=== PATIENT | female | born 1945 | race Caucasian/White ===

== ENCOUNTER → 2017-05-22 11:31 | Outpatient (CLI) | payer MEDICARE, OTHER, SELFPAY ==
[2017-05-22 13:12] LABS: Albumin, Serum 3.7 g/dL (3.2-5.0); BUN 23 mg/dL (7-18); BUN/Creat Ratio 24.5 RATIO (10-20); Calcium,Total 9.4 mg/dL (8.5-10.1); Chloride 104 mmol/L (98-107); Creatinine, Serum 0.94 mg/dL (0.55-1.02); EST Glomerular Filtration Rate 63 mL/min (>60); Est Glom Filt Rate - Afr Amer 76 mL/min (>60); Glucose 160 mg/dL (74-106); Phosphorus 2.8 mg/dL (2.5-4.9); Potassium 4.2 mmol/L (3.5-5.1); Sodium Level 136 mmol/L (136-145)
[2017-05-22 14:08] LABS: Microalbumin:Creatinine Ratio 1190.7 mg/g CRE (<30 mg/g CRE)
[2017-05-22 15:36] LABS: Hemoglobin A1c 6.9 % (4.2-6.3)
[2017-05-23 08:49] LABS: Vitamin D,25 Hydroxy 25.4 ng/mL (19.95-100.01)
== END ==
PROVIDERS: Family Provider Family Medicine; PCP Family Medicine; Visit Provider Internal Medicine Nephrology
DX: E11.21 Type 2 diabetes mellitus with diabetic nephropathy (principal); E11.37X1 Type 2 diabetes mellitus with diabetic macular edema, resolved following treatment, right eye; E55.9 Vitamin D deficiency, unspecified
CPT/HCPCS: 36415; 80069; 82043; 82306; 82570; 83036

== ENCOUNTER → 2017-05-28 13:47 | Outpatient (CLI) | payer MEDICARE, OTHER, SELFPAY ==
--- NOTE | 2017-05-28 13:48 | US_ITS ---
STUDY: RENAL ULTRASOUND - COMPLETE REASON FOR EXAM: Female, 71 years old. Acute renal failure. TECHNIQUE: Ultrasound evaluation of the kidneys was performed with real-time and static josé-scale imaging. COMPARISON: Comparison is made with prior examination dated September 04, 2016. FINDINGS: RIGHT KIDNEY: Normal location of the right kidney, which is normal in size. The right kidney measures 10.4 cm x 5.0 cm x 4.5 cm. There is a normal cortex of the right kidney. The renal cortex measures 1.4 cm. There is a 1 cm x 0.8 cm x 0.7 cm cyst. Questionable 8 mm angiomyolipoma in the upper pole of the right kidney. There are no right renal calculi. There is no right hydronephrosis. DISTAL RIGHT URETER: There is non-visualization of the distal right ureter. There is no demonstrated right ureterovesical junction calculus. There is a visualized right ureteral jet. LEFT KIDNEY: Normal location of the left kidney, which is normal in size. The left kidney measures 9.9 cm x 4.0 cm x 4.8 cm. There is a normal cortex of the left kidney. The renal cortex measures 1.5 cm. There is a 1 cm x 1.1 cm x 1 cm cyst. There are no left renal calculi. There is no left hydronephrosis. DISTAL LEFT URETER: There is non-visualization of the distal left ureter. There is no demonstrated left ureterovesical junction calculus. There is a visualized left ureteral jet. I.V.C.: The IVC is patent. BLADDER: The distended urinary bladder has a volume of 101.6 ml. There is a normal wall thickness of the distended urinary bladder. There is no demonstrated mass within the urinary bladder. There are no demonstrated bladder calculi. US/Kidney and Bladder IMPRESSION: Small bilateral renal cysts. Electronically Signed: Julian Ahuja MD at 9:46 EST Tel [phone], Service support ,
== END ==
PROVIDERS: Family Provider Family Medicine; PCP Family Medicine; Visit Provider Internal Medicine Nephrology
DX: N17.9 Acute kidney failure, unspecified (principal)
CPT/HCPCS: 76770

== ENCOUNTER → 2017-08-01 11:29 | Outpatient (CLI) | payer MEDICARE, OTHER, SELFPAY ==
[2017-08-01 14:20] LABS: AST(SGOT) 22 U/L (15-37); Alanine Aminotransfer ALT/SGPT 25 U/L (13-56); Cholesterol 177 mg/dL (200); High Density Lipoprotein 43 mg/dL; Triglycerides 205 mg/dL; Very Low Density Lipoprotein 41 mg/dL (5-40)
[2017-08-01 14:23] LABS: Vitamin D,25 Hydroxy 27.8 ng/mL (29.95-100.01)
== END ==
PROVIDERS: Family Provider Family Medicine; PCP Family Medicine; Visit Provider Family Medicine
DX: I25.10 Atherosclerotic heart disease of native coronary artery without angina pectoris (principal)
CPT/HCPCS: 36415; 80061; 82306; 84450; 84460

== ENCOUNTER → 2017-11-12 13:39 | Outpatient (CLI) | payer MEDICARE, OTHER, SELFPAY ==
[2017-11-12 16:12] LABS: Albumin, Serum 3.8 g/dL (3.2-5.0); BUN 29 mg/dL (7-18); BUN/Creat Ratio 29.4 RATIO (10-20); Calcium,Total 10.3 mg/dL (8.5-10.1); Chloride 105 mmol/L (98-107); Creatinine, Serum 0.99 mg/dL (0.55-1.02); EST Glomerular Filtration Rate 59 mL/min (>60); Est Glom Filt Rate - Afr Amer 71 mL/min (>60); Glucose 135 mg/dL (74-106); Potassium 4.8 mmol/L (3.5-5.1); Sodium Level 138 mmol/L (136-145)
[2017-11-12 16:22] LABS: Hemoglobin A1c 6.6 % (4.2-6.3); Protein:Creat Ratio 1214 mg/g CRE (0-200); Vitamin D,25 Hydroxy 27.8 ng/mL (29.95-100.01)
== END ==
PROVIDERS: Family Provider Family Medicine; PCP Family Medicine; Visit Provider Internal Medicine Nephrology
DX: E11.21 Type 2 diabetes mellitus with diabetic nephropathy (principal); E11.37X1 Type 2 diabetes mellitus with diabetic macular edema, resolved following treatment, right eye; E55.9 Vitamin D deficiency, unspecified; N17.9 Acute kidney failure, unspecified
CPT/HCPCS: 36415; 80069; 82306; 82570; 83036; 84156

== ENCOUNTER → 2017-12-18 10:21 | Outpatient (CLI) | payer MEDICARE, OTHER, SELFPAY ==
[2017-12-18 12:48] LABS: Albumin, Serum 3.8 g/dL (3.2-5.0); BUN 33 mg/dL (7-18); BUN/Creat Ratio 32.7 RATIO (10-20); Calcium,Total 9.4 mg/dL (8.5-10.1); Chloride 103 mmol/L (98-107); Creatinine, Serum 1.01 mg/dL (0.55-1.02); EST Glomerular Filtration Rate 57 mL/min (>60); Est Glom Filt Rate - Afr Amer 69 mL/min (>60); Glucose 122 mg/dL (74-106); Phosphorus 3.2 mg/dL (2.5-4.9); Potassium 4.3 mmol/L (3.5-5.1); Sodium Level 136 mmol/L (136-145)
[2017-12-18 12:54] LABS: Protein, Urine (Random) 51.7 mg/dL (<11.9); Protein:Creat Ratio 730 mg/g CRE (0-200)
[2017-12-19 08:46] LABS: Vitamin D,25 Hydroxy 41.9 ng/mL (29.95-100.01)
== END ==
PROVIDERS: Family Provider Family Medicine; PCP Family Medicine; Visit Provider Internal Medicine Nephrology
DX: E11.21 Type 2 diabetes mellitus with diabetic nephropathy (principal); E55.9 Vitamin D deficiency, unspecified; E11.37X1 Type 2 diabetes mellitus with diabetic macular edema, resolved following treatment, right eye
CPT/HCPCS: 36415; 80069; 82306; 82570; 83036; 84156

== ENCOUNTER 2018-01-06 15:41 | Emergency (ER) | payer MEDICARE, OTHER, SELFPAY ==
[2018-01-06 15:42] VITALS: BP 173/81; PULSE 74; RESP 18; TEMP 36.7; O2SAT 99; BMI 26.5
--- NOTE | 2018-01-06 16:19 | ED.DCSUM_ITS ---
- ER Visit Summary Date of Service: 01/06/18 Chief Complaint: Abscess History of Present Illness: The patient is a 72 F presenting with abscess to right posterior thigh. This has been ongoing for approximately 2 weeks. She states prior to that she chronically has a lump in that area. Redness began 2 weeks ago. Over the past week it has progressively worsened. She has been on Keflex since Sunday. She was unable to get into her primary care physician on Sunday but has an appointment tomorrow. She denies fever or other complaints. Physical Examination: Vitals are stable. Patient is afebrile. Alert no acute distress. HEENT exam is unremarkable. Neck is supple. Lungs are clear and equal bilaterally. Heart is regular rate and rhythm. Abdomen is soft nontender nondistended. Extremities right posterior thigh 4 cm abscess with fluctuance, mild surrounding erythema Skin is warm and dry. No focal neurologic deficit. Remainder of exam is unremarkable. Emergency Department Course and Treatment: Patient was given Christine ?1. I&D was performed. Incised with 11 blade, probed to break up loculations, moderate pus drained, irrigated with saline. Patient tolerated this well. She was given clindamycin. She has an appointment with her primary care physician tomorrow for wound recheck. Advised return to ED if worsening complaints. Disposition: Discharge home Impression: Right thigh abscess, I&D This note was generated with Stitch.es dictation software. It may contain incorrect words, spelling, and punctuation that were not noted in review of the chart prior to signing ED Disposition - Plan for ED Patient: Chief Complaint: Abscess Instructions: ED Abscess IandD Prescriptions: Clindamycin [Cleocin] 300 mg PO 4X/DAY #80 capsule Referrals: Katt Ramsay MD [Primary Care Provider] -
[2018-01-06 16:24] VITALS: BP 165/80; PULSE 80; RESP 14; O2SAT 98
[2018-01-06] MEDS: HYDROcodone Bitartrate/Apap 5/325 Tablet PO (17:07)
--- NOTE | 2018-01-06 17:47 | ED.DEP ---
ED Disposition - Plan for ED Patient: Chief Complaint: Abscess Instructions: ED Abscess IandD Prescriptions: Clindamycin [Cleocin] 300 mg PO 4X/DAY #80 capsule Referrals: Katt Ramsay MD [Primary Care Provider] -
[2018-01-06 17:52] VITALS: BP 160/80; PULSE 95; RESP 15; O2SAT 98
[2018-01-06] MEDS: Clindamycin HCl 150 MG Capsule 300 MG PO (17:55)
[2018-01-06 17:57] VITALS: BP 154/58; PULSE 60; RESP 17; O2SAT 98
== END 2018-01-06 20:38 | disposition home or self-care (01) ==
PROVIDERS: Emergency Provider Emergency Medicine; Family Provider Family Medicine; PCP Family Medicine
DX: L02.415 Cutaneous abscess of right lower limb (principal); B96.89 Other specified bacterial agents as the cause of diseases classified elsewhere; I25.10 Atherosclerotic heart disease of native coronary artery without angina pectoris; I10 Essential (primary) hypertension; E11.9 Type 2 diabetes mellitus without complications; Z79.84 Long term (current) use of oral hypoglycemic drugs; Z79.82 Long term (current) use of aspirin; Z79.899 Other long term (current) drug therapy; Z87.891 Personal history of nicotine dependence
CPT/HCPCS: 10060; 99283; A4216

== ENCOUNTER → 2018-06-25 13:20 | Outpatient (CLI) | payer MEDICARE, OTHER, SELFPAY ==
--- NOTE | 2018-06-25 13:22 | BI_ITS ---
MAMMOGRAPHY - BILATERAL SCREENING REASON FOR EXAM: Female, 72 years old. Routine annual screening examination. PERTINENT HISTORY: Non-contributory. TECHNIQUE: Digital bilateral breast gertrudis (3D mammographic acquisition) in the CC and MLO projections. 2-D mediolateral oblique (MLO) and craniocaudad (CC) views of both breasts were obtained. CAD: Full Field Digital Mammography with Computer Added Detection was performed. COMPARISON: Comparison is made with prior study dated August 14, 2016 FINDINGS: Breast Composition: There are scattered areas of fibroglandular density. There are no dominant masses or suspicious calcifications. Stable appearance of the bilateral secretory calcifications. No other significant abnormalities are identified. There has been no significant change since the prior study. BI/SCREENING MAMM (CAD), BILAT IMPRESSION: Stable bilateral screening mammogram. Yearly follow-up mammogram recommended. (A) ASSESSMENT CATEGORY: BIRADS Category 2: Benign. A letter regarding these results will be sent to the patient by the facility within 30 days. Approximately 10% of breast cancers are not detected by mammography. A normal mammogram should not delay biopsy of a clinically suspicious abnormality. [id number] Electronically Signed: Julian Ahuja, at 14:53 EDT , Service support ,
== END ==
PROVIDERS: Family Provider Family Medicine; PCP Family Medicine; Referring Provider Family Medicine; Visit Provider Family Medicine
DX: Z12.31 Encounter for screening mammogram for malignant neoplasm of breast (principal)
CPT/HCPCS: 77063; 77067

== ENCOUNTER 2018-07-10 15:48 | Emergency (ER) | payer MEDICARE, OTHER, SELFPAY ==
[2018-07-10 16:02] VITALS: BP 115/56; PULSE 83; RESP 18; TEMP 36.6; O2SAT 98; BMI 28.8
--- NOTE | 2018-07-10 16:16 | CT_ITS ---
STUDY: CT BRAIN WITHOUT CONTRAST REASON FOR EXAM: Female, 72 years old. Syncope RADIATION DOSAGE (If Supplied By Facility): CTDIvol = ( 44.99 ) mGy, DLP = ( 745.49 ) mGycm TECHNIQUE: Transaxial CT imaging of the brain was performed without administration of intravenous contrast material. Individualized dose optimization techniques were used for this CT. COMPARISON: February 01, 2014 FINDINGS: Subcutaneous hematoma left occiput. Normal calvarium. Normal size ventricles and extra-axial spaces for the patient's age. Normal white matter tracts of the cerebral hemispheres. Normal basal ganglia and thalami. Normal brainstem. Normal cerebellum. There is no intracranial hemorrhage. There are no findings of an acute ischemic infarction. Normal visualized paranasal sinuses. CT/Brain/Head without Contrast IMPRESSION: Normal unenhanced CT scan of the brain. Electronically Signed: Jose Juan Funez MD at 18:54 EDT , Service support ,
--- NOTE | 2018-07-10 16:16 | ED.VISSUMM ---
- ER Visit Summary Date of Service: 07/10/18 Chief Complaint: Syncope History of Present Illness: The patient is a 72 F who presents with syncopal episode that occurred today. Patient was at [facility] when she passed out. Patient states she fell backwards and hit her head. Patient states she was standing in line for a long time prior to passing out. Patient denies any chest pain or palpitations. Patient denies any shortness of breath. Patient states she just feels a little lightheaded. Patient was recently started on Augmentin for possible pneumonia. She was also started on albuterol, Mucinex, Tessalon. Patient was at the pharmacy picking up these prescriptions when she passed out. Physical Examination: Vital signs are stable. Patient is afebrile. Patient is in no acute distress. There is tenderness and mild edema over the occipital scalp. There is no bony crepitance or step-off. Pupils are equal, round, and reactive to light. Extraocular muscles are intact. Oral mucosa is pink and moist. Neck is supple. Trachea is midline. There is no JVD noted. Heart was regular rate and rhythm. Lungs are clear and equal bilateral. Abdomen is soft. Bowel sounds are normal. There is no tenderness. There is no guarding noted. Skin is warm dry. Cranial nerves II through XII are intact. There are no focal motor or sensory deficits noted. The remaining physical exam is within normal limits. Test Results: CBC was normal. Basic metabolic profile shows slightly elevated BUN and creatinine of 26 and 1.36. Urinalysis showed leukocyte esterase of 100 with positive nitrites. There is 0-5 white blood cells and 0-5 epithelial cells. Troponin was normal. EKG showed normal sinus rhythm with a rate of 83. There are no acute ST or T wave changes. CT scan of the brain was obtained and was normal. PA and lateral chest x-ray was obtained and does not show any acute cardiopulmonary process. There are chronic changes noted. Emergency Department Course and Treatment: Orthostatic vital signs were obtained and were positive. Patient was given IV fluids here. Patient was instructed to drink plenty of fluids. Patient was instructed to continue her antibiotics as prescribed. Patient was instructed to follow-up with her primary care physician in 5-7 days. Patient understood and was agreeable with the plan. All questions were answered. Disposition: Discharge home Impression: Syncope Dehydration This note was generated with Theoremation software. It may contain incorrect words, spelling, and punctuation that were not noted in review of the chart prior to signing ED Disposition - Plan for ED Patient: Disposition: Home or Assisted Living Diagnosis: Syncope, Dehydration Instructions: ED Dehydration, ED Hypotension Orthostatic Referrals: Katt Ramsay MD [Primary Care Provider] - 5-7 Days
--- NOTE | 2018-07-10 16:17 | EKG12_ITS ---
Test Reason : SYNCOPE Blood Pressure : / mmHG Vent. Rate : 083 BPM Atrial Rate : 083 BPM P-R Int : 134 ms QRS Dur : 070 ms QT Int : 370 ms P-R-T Axes : 050 036 027 degrees QTc Int : 434 ms Normal sinus rhythm Normal ECG Confirmed by ENOC NICOLE, KOKO ([id number]), editor greeting card FELICIA YIN ([id number]) on 07/11/2018 1:13:21 PM Referred By: JOHN Confirmed By:KOKO STUBBS MD
[2018-07-10 16:51] LABS: Absolute Lymphocyte Count 0.42 X10^3/ul (0.83-4.51); Absolute Neutrophil Count 6.5 X10^3/uL (2.0-7.7); Basophil# 0.07 X10^3/uL; Basophil% 0.9 % (0-1); Differential Indicated SCAN CRITERIA MET; Eosinophil# 0.01 X10^3/uL; Eosinophils% 0.1 % (0-5); Hematocrit 36.5 % (37-47); Hemoglobin 12.2 g/dl (12.0-15.0); Lymphocyte # 0.42 X10^3/ul (4.0); Lymphocyte % 5.3 % (19-41); Mean Corp Hgb Conc 33.4 g/gl (32-36); Mean Corpuscular Hgb 30.7 pg (27.0-32.0); Mean Corpuscular Volume 91.7 fL (81-99); Mean Platelet Vol. 11.9 fl (6.2-12.0); Monocyte# 0.86 X10^3/uL; Monocyte% 10.9 % (0-10); Neutrophil # 6.49 X10^3/uL (2.7-7.7); Neutrophil % 82.3 % (47-70); POSITIVE COUNT NO; POSITIVE DIFFERENTIAL YES; POSITIVE MORPHOLOGY NO; Platelet Count 186 K/mm3 (150-450); RBC Distribution Width CV 12.3 % (11.6-14.6); RBC Distribution Width SD 40.7 fl (35.1-43.9); Red Blood Count 3.98 M/mm3 (4.2-5.4); White Blood Count 7.9 K/mm3 (4.4-11.0)
[2018-07-10 16:53] VITALS: BP 111/54; BP 128/53; BP 155/87; PULSE 86; PULSE 87; PULSE 88
--- NOTE | 2018-07-10 17:02 | RAD_ITS ---
STUDY: X-RAY CHEST REASON FOR EXAM: Female, 72 years old. Syncope TECHNIQUE: PA and lateral views of the chest. 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 There is minimal linear fibrosis of the left lingula. There is no demonstrated pleural abnormality. Normal size heart. Normal mediastinum and demetra. Normal visualized pulmonary arteries. Normal visualized aortic arch and descending thoracic aorta. Normal visualized thoracic spine. Normal visualized ribs, clavicles, and shoulders. There is no demonstrated abnormality of the visualized soft tissue structures of the upper abdomen. RAD/Chest PA and Lateral IMPRESSION: Left lingular fibrosis, stable in the interval. No acute cardiopulmonary disease process is seen. Electronically Signed: Damian Vines MD at 18:03 EDT , Service support ,
[2018-07-10 17:12] LABS: Anion Gap 10 (5-15); BUN 26 mg/dL (7-18); BUN/Creat Ratio 19.1 RATIO (10-20); Calcium,Total 9.1 mg/dL (8.5-10.1); Chloride 101 mmol/L (98-107); Creatinine, Serum 1.36 mg/dL (0.55-1.02); EST Glomerular Filtration Rate 41 mL/min (>60); Est Glom Filt Rate - Afr Amer 49 mL/min (>60); Estimated Creatinine Clearance 36.13 ml/min; Glucose 155 mg/dL (74-106); Potassium 4.2 mmol/L (3.5-5.1); Sodium Level 134 mmol/L (136-145)
[2018-07-10 17:15] LABS: Differential Comment SCANNED
--- NOTE | 2018-07-10 17:29 | ED.RN ---
unable to urinate for sample at this time.
[2018-07-10 18:10] VITALS: BP 107/86; PULSE 82; RESP 18; O2SAT 95
[2018-07-10 18:14] LABS: Mucous, Urine 0 SEEN /hpf (<or=2+); Red Blood Cells-Urine 0 SEEN /hpf (0-5)
[2018-07-10 18:16] LABS: Color, Urine Yellow (Yellow); Glucose, Dipstick Normal (Normal); Ketone-Dipstick 5 mg/dl (Negative); Leukocyte Esterase-Dipstick 100 /ul (Negative); Nitrite-Dipstick Positive (Negative); Occult Blood-Urine 25 /ul (Negative); Protein-Dipstick 500 mg/dl (Negative); Urine Bilirubin Dipstick Negative (Negative); Urine Clarity Sl. Cloudy (Clear); Urine Urobilinogen Normal (Normal)
[2018-07-10 18:28] LABS: Bacteria 3+ /hpf (None Seen); Squamous Epithelial Cells - UA 0-5 SEEN /hpf (5-10); Transitional Epithelial - Ur 0-5 SEEN /hpf (0-5); White Blood Cells 0-5 SEEN /hpf (0-5)
[2018-07-10 19:09] VITALS: PULSE 97; RESP 18; O2SAT 16
[2018-07-10] MEDS: 0.9% Normal Saline 1,000 ML 1000 ML IV (19:09)
[2018-07-10 20:37] VITALS: BP 139/69; PULSE 77; RESP 16; O2SAT 98
== END 2018-07-10 20:38 | disposition home or self-care (01) ==
PROVIDERS: Emergency Provider Emergency Medicine; Family Provider Family Medicine; PCP Family Medicine
DX: R55 Syncope and collapse (principal); E86.0 Dehydration; I25.10 Atherosclerotic heart disease of native coronary artery without angina pectoris; I11.0 Hypertensive heart disease with heart failure; I50.9 Heart failure, unspecified; J44.9 Chronic obstructive pulmonary disease, unspecified; E11.9 Type 2 diabetes mellitus without complications; N17.9 Acute kidney failure, unspecified; Z98.61 Coronary angioplasty status; Z79.82 Long term (current) use of aspirin; Z79.84 Long term (current) use of oral hypoglycemic drugs; Z79.899 Other long term (current) drug therapy
CPT/HCPCS: 70450; 71046; 80048; 81001; 84484; 85025; 93005; 96360; 99285; J7030; A4216

== ENCOUNTER 2018-07-12 17:09 | Observation (INO) | payer MEDICARE, OTHER, SELFPAY ==
[2018-07-12 17:11] VITALS: BP 135/67; PULSE 69; RESP 17; TEMP 36.7; O2SAT 98; BMI 24.5
[2018-07-12 18:43] VITALS: BP 168/62; PULSE 69; RESP 13; O2SAT 98
--- NOTE | 2018-07-12 18:49 | RAD_ITS ---
STUDY: X-RAY CHEST REASON FOR EXAM: Female, 72 years old. Syncope. TECHNIQUE: PA and lateral views of the chest. COMPARISON: July 10, 2018 FINDINGS: There is no new focal consolidation. Normal size heart. Normal mediastinum and demetra. Normal visualized pulmonary arteries. Normal visualized aortic arch and descending thoracic aorta. Normal visualized thoracic spine. Normal visualized ribs, clavicles, and shoulders. There is no demonstrated abnormality of the visualized soft tissue structures of the upper abdomen. RAD/Chest PA and Lateral IMPRESSION: No acute cardiopulmonary process. Electronically Signed: Johana Bonilla MD at 21:29 EDT Tel , Service support ,
--- NOTE | 2018-07-12 18:49 | CT_ITS ---
STUDY: CT BRAIN WITHOUT CONTRAST REASON FOR EXAM: Female, 72 years old. Fall today. RADIATION DOSAGE (If Supplied By Facility): CTDIvol = ( 44.99 ) mGy, DLP = ( 779.24 ) mGycm TECHNIQUE: Transaxial CT imaging of the brain was performed without administration of intravenous contrast material. Individualized dose optimization techniques were used for this CT. COMPARISON: July 10, 2018 and January 02, 2014 FINDINGS: Normal soft tissue structures. Stable calvarium. There is mild cerebral atrophy with widening of the extra-axial spaces and ventricular dilatation. Normal white matter tracts of the cerebral hemispheres. Normal basal ganglia and thalami. Normal brainstem. There is mild cerebellar atrophy. There is no intracranial hemorrhage. There are no findings of an acute ischemic infarction. There is mild opacification of the visualized maxillary and ethmoid sinuses. CT/Brain/Head without Contrast IMPRESSION: Chronic involutional changes of the brain. Mild opacification of the visualized maxillary and ethmoid sinuses consistent with a history of sinusitis. Electronically Signed: Johana Bonilla MD at 21:28 EDT Tel , Service support ,
--- NOTE | 2018-07-12 18:49 | EKG12_ITS ---
Test Reason : Blood Pressure : / mmHG Vent. Rate : 064 BPM Atrial Rate : 064 BPM P-R Int : 132 ms QRS Dur : 076 ms QT Int : 414 ms P-R-T Axes : 048 032 049 degrees QTc Int : 427 ms Normal sinus rhythm Low voltage QRS Borderline ECG Confirmed by TERI NICOLE, BRUCE ([id number]), photograph editor FELICIA YIN ([id number]) on 07/15/2018 1:54:52 PM Referred By: Joseph Miller Confirmed By:BRUCE WILLIAMSON MD
[2018-07-12 18:51] VITALS: BP 168/62; PULSE 71; RESP 18; TEMP 36.6; O2SAT 98
--- NOTE | 2018-07-12 18:51 | ED.VISSUMM ---
- ER Visit Summary Date of Service: 07/12/18 Chief Complaint: Syncopal episode History of Present Illness: The patient is a 72 F who presents for evaluation after a syncopal episode today. 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 Patient went to walk out of the store and fell backwards, striking her head on the ground. She was unconscious for approximately 30 seconds. Family states then she was awake and at her baseline. Patient is complaining of head pain and mild nausea. Patient had a similar episode 2 days ago at [facility] and also hit her head. She vomited once at that time. Patient states for the last month she has been having dizzy episodes and now is starting to have the episodes of passing out. She estimates approximately 4 episodes of syncope, with the 2 resulting in transfer to the emergency department. Patient currently denies any fever, vision changes, chest pain, shortness of breath, abdominal pain, nausea or vomiting, numbness or tingling in the arms or legs, or other complaints. Patient is currently on amoxicillin, Mucinex and an inhaler for pneumonia that was diagnosed at an outside facility. Patient also received injections in her eyes yesterday for treatment of diabetes. 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 Physical Examination: Vital signs: afebrile, hemodynamically stable, no hypoxia on room air General: well nourished, well developed, in no distress Skin: warm, dry, no rash, no pallor HEENT: normocephalic and atraumatic; no scalp hematoma, laceration or abrasion appreciated. PERRL, EOMI, bilateral mild subconjunctival hemorrhage, moist mucous membranes Cardiovascular: regular rate and rhythm without murmurs, no peripheral edema, 2+ pulses all distal extremities Respiratory: No increased work of breathing, lungs are diffusely diminished with expiratory wheezing Abdominal: Abdomen is soft, nontender with normoactive bowel sounds, no guarding or rebound, no masses MSK: Moves all extremities, no deformities, normal strength Neuro: Awake and alert, oriented ?4. No facial droop, sensation and motor function intact and symmetric Test Results: Abnormal Lab Results 07/12/18 07/12/18 07/12/18 18:59 19:30 19:30 WBC 5.3 RBC 3.89 L Hgb 11.6 L Hct 34.2 L MCV 87.9 MCH 29.8 MCHC 33.9 RDW 12.5 RDW Differential 39.2 Plt Count 178 MPV 12.1 H Immature Gran % (Auto) 0.400 Neut % (Auto) 73.5 H Lymph % (Auto) 13.5 L [place] % (Auto) 11.4 H Eos % (Auto) 0.2 Baso % (Auto) 1.0 Absolute Neuts (auto) 3.9 Absolute Lymphs (auto) 0.71 L Total Counted Not Reportable Sodium 133 L Potassium 4.4 Chloride 101 Carbon Dioxide 26.0 Anion Gap 6 BUN 30 H Creatinine 1.50 H Estim Creat Clear Calc 24.71 Est GFR (MDRD) Af Amer 44 L Est GFR (MDRD) Non-Af 36 L BUN/Creatinine Ratio 20.0 Glucose 216 H Calcium 8.7 Total Bilirubin 0.30 AST 25 ALT 20 Alkaline Phosphatase 107 Troponin I < 0.015 Total Protein 6.6 Albumin 3.5 Globulin 3.1 Albumin/Globulin Ratio 1.1 Urine Color Urine Clarity Urine pH Ur Specific [place] Urine Protein Urine Glucose (UA) Urine Ketones Urine Occult Blood Urine Nitrite Urine Bilirubin Urine Urobilinogen Ur Leukocyte Esterase Urine RBC Urine WBC Ur Squamous Epith Cells Urine Bacteria Urine Mucus Ethyl Alcohol POC Glucose 238 H 07/12/18 07/12/18 19:30 20:20 WBC RBC Hgb Hct MCV MCH MCHC RDW RDW Differential Plt Count MPV Immature Gran % (Auto) Neut % (Auto) Lymph % (Auto) [place] % (Auto) Eos % (Auto) Baso % (Auto) Absolute Neuts (auto) Absolute Lymphs (auto) Total Counted Sodium Potassium Chloride Carbon Dioxide Anion Gap BUN Creatinine Estim Creat Clear Calc Est GFR (MDRD) Af Amer Est GFR (MDRD) Non-Af BUN/Creatinine Ratio Glucose Calcium Total Bilirubin AST ALT Alkaline Phosphatase Troponin I Total Protein Albumin Globulin Albumin/Globulin Ratio Urine Color Yellow Urine Clarity Clear Urine pH 6.0 Ur Specific [place] 1.010 Urine Protein 30 H Urine Glucose (UA) Normal Urine Ketones Negative Urine Occult Blood Negative Urine Nitrite Negative Urine Bilirubin Negative Urine Urobilinogen Normal Ur Leukocyte Esterase Negative Urine RBC 0 SEEN Urine WBC 0 SEEN Ur Squamous Epith Cells 0 SEEN Urine Bacteria 0 SEEN Urine Mucus 0 SEEN Ethyl Alcohol < 3.0 POC Glucose Clinical Impression(s) from Imaging Studies Brain CT 03/29/19 18:49 IMPRESSION: Chronic involutional changes of the brain. Mild opacification of the visualized maxillary and ethmoid sinuses consistent with a history of sinusitis. Electronically Signed: Johana Bonilla MD at 21:28 EDT Tel , Service support , Chest X-Ray 07/12/18 18:49 IMPRESSION: No acute cardiopulmonary process. Electronically Signed: Johana Bonilla MD at 21:29 EDT Tel , Service support , Medications Given Discontinued Medications Albuterol/Ipratropium (Duoneb) 3 ml INHALATION X1 ONE Stop: 07/12/18 18:52 Last Admin: 07/12/18 19:19 Dose: 3 ml Sodium Chloride () 1,000 mls @ 1,000 mls/hr IV .Q1H ONE Stop: 07/12/18 19:48 Last Admin: 07/12/18 19:40 Dose: 1,000 mls/hr Emergency Department Course and Treatment: Patient presents for evaluation after syncopal episode, and she has had multiple syncopal episodes in the last month. Because patient did hit her head today, a CT of the head was performed and showed no intracranial hemorrhage. EKG shows sinus rhythm without any ischemic changes or ectopy. CBC and CMP were unremarkable. Urine negative for infection. Troponin negative. Alcohol was checked and was negative. Patient was given a DuoNeb for mild wheezing and had improvement after the treatment. Chest x-ray showed no infiltrates. No cause of patient's syncopal episode was identified, however this is her second visit for syncope this week, and given the ongoing syncopal episode she would benefit from admission for further syncope workup. Patient was discussed with the hospitalist and admitted. Treatment Plan: [] Disposition: [] Impression: syncopal episodes, closed head injury This note was generated with MedNewsation software. It may contain incorrect words, spelling, and punctuation that were not noted in review of the chart prior to signing ED Disposition - Plan for ED Patient: Disposition: Acute Care Hospital [facility]
--- NOTE | 2018-07-12 18:54 | ED.DCSUM_ITS ---
- ER Visit Summary Date of Service: 07/12/18 Chief Complaint: Syncopal episode History of Present Illness: The patient is a 72 F who presents for evaluation after a syncopal episode today. 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 Patient went to walk out of the store and fell backwards, striking her head on the ground. She was unconscious for approximately 30 seconds. Family states then she was awake and at her baseline. Patient is complaining of head pain and mild nausea. Patient had a similar episode 2 days ago at [facility] and also hit her head. She vomited once at that time. Patient states for the last month she has been having dizzy epi sodes and now is starting to have the episodes of passing out. She estimates approximately 4 episodes of syncope, with the 2 resulting in transfer to the emergency department. Patient currently denies any fever, vision changes, chest pain, shortness of breath, abdominal pain, nausea or vomiting, numbness or tingling in the arms or legs, or other complaints. Patient is currently on amoxicillin, Mucinex and an inhaler for pneumonia that was diagnosed at an outside facility. Patient also received injections in her eyes yesterday for treatment of diabetes. 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 Physical Examination: Vital signs: afebrile, hemodynamically stable, no hypoxia on room air General: well nourished, well developed, in no distress Skin: warm, dry, no rash, no pallor HEENT: normocephalic and atraumatic; no scalp hematoma, laceration or abrasion appreciated. PERRL, EOMI, bilateral mild subconjunctival hemorrhage, moist mucous membranes Cardiovascular: regular rate and rhythm without murmurs, no peripheral edema, 2+ pulses all distal extremities Respiratory: No increased work of breathing, lungs are diffusely diminished with expiratory wheezing Abdominal: Abdomen is soft, nontender with normoactive bowel sounds, no guarding or rebound, no masses MSK: Moves all extremities, no deformities, normal strength Neuro: Awake and alert, oriented ?4. No facial droop, sensation and motor function intact and symmetric Test Results: Abnormal Lab Results 07/12/18 07/12/18 07/12/18 18:59 19:30 19:30 WBC 5.3 RBC 3.89 L Hgb 11.6 L Hct 34.2 L MCV 87.9 MCH 29.8 MCHC 33.9 RDW 12.5 RDW Differential 39.2 Plt Count 178 MPV 12.1 H Immature Gran % (Auto) 0.400 Neut % (Auto) 73.5 H Lymph % (Auto) 13.5 L [place] % (Auto) 11.4 H Eos % (Auto) 0.2 Baso % (Auto) 1.0 Absolute Neuts (auto) 3.9 Absolute Lymphs (auto) 0.71 L Total Counted Not Reportable Sodium 133 L Potassium 4.4 Chloride 101 Carbon Dioxide 26.0 Anion Gap 6 BUN 30 H Creatinine 1.50 H Estim Creat Clear Calc 24.71 Est GFR (MDRD) Af Amer 44 L Est GFR (MDRD) Non-Af 36 L BUN/Creatinine Ratio 20.0 Glucose 216 H Calcium 8.7 Total Bilirubin 0.30 AST 25 ALT 20 Alkaline Phosphatase 107 Troponin I < 0.015 Total Protein 6.6 Albumin 3.5 Globulin 3.1 Albumin/Globulin Ratio 1.1 Urine Color Urine Clarity Urine pH Ur Specific [place] Urine Protein Urine Glucose (UA) Urine Ketones Urine Occult Blood Urine Nitrite Urine Bilirubin Urine Urobilinogen Ur Leukocyte Esterase Urine RBC Urine WBC Ur Squamous Epith Cells Urine Bacteria Urine Mucus Ethyl Alcohol POC Glucose 238 H 07/12/18 07/12/18 19:30 20:20 WBC RBC Hgb Hct MCV MCH MCHC RDW RDW Differential Plt Count MPV Immature Gran % (Auto) Neut % (Auto) Lymph % (Auto) [place] % (Auto) Eos % (Auto) Baso % (Auto) Absolute Neuts (auto) Absolute Lymphs (auto) Total Counted Sodium Potassium Chloride Carbon Dioxide Anion Gap BUN Creatinine Estim Creat Clear Calc Est GFR (MDRD) Af Amer Est GFR (MDRD) Non-Af BUN/Creatinine Ratio Glucose Calcium Total Bilirubin AST ALT Alkaline Phosphatase Troponin I Total Protein Albumin Globulin Albumin/Globulin Ratio Urine Color Yellow Urine Clarity Clear Urine pH 6.0 Ur Specific [place] 1.010 Urine Protein 30 H Urine Glucose (UA) Normal Urine Ketones Negative Urine Occult Blood Negative Urine Nitrite Negative Urine Bilirubin Negative Urine Urobilinogen Normal Ur Leukocyte Esterase Negative Urine RBC 0 SEEN Urine WBC 0 SEEN Ur Squamous Epith Cells 0 SEEN Urine Bacteria 0 SEEN Urine Mucus 0 SEEN Ethyl Alcohol < 3.0 POC Glucose Clinical Impression(s) from Imaging Studies Brain CT 07/12/18 18:49 IMPRESSION: Chronic involutional changes of the brain. Mild opacification of the visualized maxillary and ethmoid sinuses consistent with a history of sinusitis. Electronically Signed: Johana Bonilla MD at 21:28 EDT Tel , Service support , Chest X-Ray 07/12/18 18:49 IMPRESSION: No acute cardiopulmonary process. Electronically Signed: Johana Bonilla MD at 21:29 EDT Tel , Service support , Medications Given Discontinued Medications Albuterol/Ipratropium (Duoneb) 3 ml INHALATION X1 ONE Stop: 07/12/18 18:52 Last Admin: 07/12/18 19:19 Dose: 3 ml Sodium Chloride () 1,000 mls @ 1,000 mls/hr IV .Q1H ONE Stop: 07/12/18 19:48 Last Admin: 07/12/18 19:40 Dose: 1,000 mls/hr Emergency Department Course and Treatment: Patient presents for evaluation after syncopal episode, and she has had multiple syncopal episodes in the last month. Because patient did hit her head today, a CT of the head was performed and showed no intracranial hemorrhage. EKG shows sinus rhythm without any ischemic changes or ectopy. CBC and CMP were unremarkable. Urine negative for infection. Troponin negative. Alcohol was checked and was negative. Patient was given a DuoNeb for mild wheezing and had improvement after the treatment. Chest x-ray showed no infiltrates. No cause of patient's syncopal episode was identified, however this is her second visit for syncope this week, and given the ongoing syncopal episode she would benefit from admission for further syncope workup. Patient was discussed with the hospitalist and admitted. Treatment Plan: [] Disposition: [] Impression: syncopal episodes, closed head injury This note was generated with [employer] software. It may contain incorrect words, spelling, and punctuation that were not noted in review of the chart prior to signing ED Disposition - Plan for ED Patient: Disposition: Acute Care [facility]
[2018-07-12 19:10] LABS: Bedside Glucose 238 mg/dL (70-110)
[2018-07-12] MEDS: Ipratropium/Albuterol Sulfate 3 ML AMPUL.NEB INHALATION (19:19)
[2018-07-12] MEDS: 0.9% Normal Saline 1,000 ML 1000 ML IV (19:40)
[2018-07-12 19:44] LABS: Absolute Lymphocyte Count 0.71 X10^3/ul (0.83-4.51); Absolute Neutrophil Count 3.9 X10^3/uL (2.0-7.7); Basophil# 0.05 X10^3/uL; Eosinophil# 0.01 X10^3/uL; Eosinophils% 0.2 % (0-5); Hematocrit 34.2 % (37-47); Hemoglobin 11.6 g/dl (12.0-15.0); Lymphocyte # 0.71 X10^3/ul (4.0); Lymphocyte % 13.5 % (19-41); Mean Corp Hgb Conc 33.9 g/gl (32-36); Mean Corpuscular Hgb 29.8 pg (27.0-32.0); Mean Corpuscular Volume 87.9 fL (81-99); Mean Platelet Vol. 12.1 fl (6.2-12.0); Monocyte% 11.4 % (0-10); Neutrophil # 3.87 X10^3/uL (2.7-7.7); Neutrophil % 73.5 % (47-70); POSITIVE COUNT NO; POSITIVE DIFFERENTIAL NO; POSITIVE MORPHOLOGY NO; Platelet Count 178 K/mm3 (150-450); RBC Distribution Width CV 12.5 % (11.6-14.6); RBC Distribution Width SD 39.2 fl (35.1-43.9); Red Blood Count 3.89 M/mm3 (4.2-5.4); White Blood Count 5.3 K/mm3 (4.4-11.0)
[2018-07-12 20:00] VITALS: BP 120/50; PULSE 75; RESP 16; TEMP 36.6; O2SAT 97
[2018-07-12 20:18] LABS: Alcohol, Blood (Medical)-Serum < 3.0 mg/dL
[2018-07-12 20:24] LABS: ALB/GLOB Ratio 1.1 RATIO (0.9-2.4); AST(SGOT) 25 U/L (15-37); Alanine Aminotransfer ALT/SGPT 20 U/L (13-56); Albumin, Serum 3.5 g/dL (3.2-5.0); Alkaline Phosphatase 107 U/L (45-117); Anion Gap 6 (5-15); BUN 30 mg/dL (7-18); Calcium,Total 8.7 mg/dL (8.5-10.1); Chloride 101 mmol/L (98-107); EST Glomerular Filtration Rate 36 mL/min (>60); Est Glom Filt Rate - Afr Amer 44 mL/min (>60); Estimated Creatinine Clearance 24.71 ml/min; Globulin 3.1 g/dL (2.2-4.2); Glucose 216 mg/dL (74-106); Potassium 4.4 mmol/L (3.5-5.1); Protein, Total 6.6 g/dL (6.4-8.2); Sodium Level 133 mmol/L (136-145)
[2018-07-12 20:30] LABS: Bacteria 0 SEEN /hpf (None Seen); Mucous, Urine 0 SEEN /hpf (<or=2+); Red Blood Cells-Urine 0 SEEN /hpf (0-5); Squamous Epithelial Cells - UA 0 SEEN /hpf (5-10); White Blood Cells 0 SEEN /hpf (0-5)
[2018-07-12 20:31] LABS: Color, Urine Yellow (Yellow); Glucose, Dipstick Normal (Normal); Ketone-Dipstick Negative (Negative); Leukocyte Esterase-Dipstick Negative /ul (Negative); Nitrite-Dipstick Negative (Negative); Occult Blood-Urine Negative /ul (Negative); Protein-Dipstick 30 mg/dl (Negative); Urine Bilirubin Dipstick Negative (Negative); Urine Clarity Clear (Clear); Urine Urobilinogen Normal (Normal)
[2018-07-12 22:00] VITALS: BP 125/55; PULSE 69; RESP 18; TEMP 36.6; O2SAT 96
--- NOTE | 2018-07-12 23:21 | HP.PCM_ITS ---
Problem List (1) Syncope Status: Acute Qualifiers: Syncope type: unspecified Qualified Code(s): R55 - Syncope and collapse History of Present Illness Date of Admission: 07/12/18 Chief Complaint: Syncope The patient is a 72 year old F who was seen in the emergency room at [facility] after having an episode of syncope today while she was at a restaurant. Patient stated that she was walking out of the restaurant and had felt lightheaded briefly and then passed out, this was witnessed and she states that the witnesses states she was only out for a minute or so. Patient had a previous episode of syncope this Sunday, she states during that episode she did not have any lightheadedness but passed out briefly. Urgency room on that date and released home. Evaluation in the ER today included labs which were remarkable for a creatinine of 1.5, BUN was 30, sodium was 133, hemoglobin was 11.6, and glucose was 216. Patient had an EKG performed which showed a normal sinus rhythm with no ST-T wave changes. Patient will be placed and observation status on PCU, she will have an echocardiogram performed, she will be seen in consultation by cardiology-I notified them verbally of the consult. Past Medical History Past Medical History (Chronic Problems): Chronic Problems Diabetes mellitus type II, uncontrolled (Chronic) COPD (chronic obstructive pulmonary disease) (Chronic) HLD (hyperlipidemia) (Chronic) Diastolic dysfunction (Chronic) Pancreatic atrophy (Chronic) HTN (hypertension) (Chronic) S/P PTCA (percutaneous transluminal coronary angioplasty) (Chronic) Gastroparesis (Chronic) GERD (gastroesophageal reflux disease) (Chronic) CAD (coronary artery disease) (Chronic) Allergies benzonatate [From Tessalon Perles] Allergy (Verified 07/12/18 17:11) lip, tongue swelling omeprazole [From Prilosec] Allergy (Verified 07/12/18 17:11) knee swelling and burning omeprazole magnesium [From Prilosec] Allergy (Verified 07/12/18 17:11) Other Home Medications: Ambulatory Orders Medication Instructions Recorded Aspirin E.C. [Ecotrin] 81 mg PO DAILY@0800 12/06/13 Nitroglycerin [Nitrostat] 0.4 mg SUBLINGUAL Q5M PRN 01/01/14 Lisinopril [Zestril] 20 mg PO DAILY 02/10/15 Albuterol Sulfate [Proair Hfa] 2 puff INHALATION BID 07/12/18 Biotin 10,000 mcg PO DAILY 07/12/18 Cholecalciferol (VIT D3) [Vitamin 1,000 unit PO DAILY 07/12/18 D] Cinnamon Bark [Cinnamon] 500 mg PO DAILY 07/12/18 Ginkgo Biloba 60 mg PO DAILY 07/12/18 Rutin/Hesp/Bioflav/C/[id number] 1 tab PO DAILY 07/12/18 [Bioflex Tablet] glipiZIDE [Glucotrol] 2.5 mg PO DAILY@0730 07/12/18 Surgical History: angioplasty, - - percutaneous coronary artery intervention with placement 2 stents, cholecystectomy- laparoscopic, , T+A, R cataract. 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 Lives: Spouse/ Significant Other Smoking Status: Former smoker Tobacco Use: Non-smoker Alcohol: None Drugs: None - *Family History Maternal History Items: COPD, Heart Disease, Hypertension Paternal History Items: Heart Disease, Hypertension Review of Systems Constitutional: Denies: Anorexia, Chills, Fever, Night Sweats, Malaise, Weakness, Weight Change, Fatigue Eyes: Denies: Cataracts, Conjunctivae Inflammation, Double vision, Drainage, Redness, Vision Change HEENT: Denies: Difficulty Swallowing, Dysphasia, Ear Pain, Eye Pain, Head Aches, Hearing Changes, Nasal bleeding, Nasal Congestion, Post Nasal Drip Cardiovascular: Reports: Syncope. Denies: Chest Pain, Claudication, Chest Pressure, Chest Tightness, Edema, Heaviness, Orthopnea, Palpitations, Paroxysmal Noc. Dyspnea Respiratory: Denies: Cough, Hemoptysis, Pleuritic Pain, Shortness of Breath, Shortness of breath at rest, Shortness of breath upon exertion, Sputum production Gastrointestinal: Denies: Abdominal Pain, Constipation, Diarrhea, Hematemesis, Hematochezia, Nausea, Melena, Vomiting Genitourinary: Denies: Dysuria, Frequency, Hematuria, Hesitancy, Urgency Gynecological: Denies: Breast symptoms Musculoskeletal: Denies: Back Pain, Foot Pain, Joint Pain, Joint stiffness, Joint swelling Skin: Denies: Dryness, Jaundice, Pruritis, Rash Neurological: Denies: Blurred vision, Double vision, Slurred speech, Confusion, Difficulty swallowing, Focal weakness, Headaches, Numbness, Tingling Psychiatric: Denies: Anxiety, Depression, Homicidal Ideations, Suicidal Ideations Endocrine: Denies: Change in Body Habitus, Heat/ Cold Intolerance, Polydipsia, P olyuria Hematologic/ Lymphatic: Denies: Adenopathy, Anemia, Easy Bruising, Easy Bleeding, Petechiae, Purpura VTE Information - Inpt Only VTE Present on Admission: No VTE Mechan Device Prophylaxis: None VTE Pharm Prophylaxis ordered?: Yes Patient Problems: Active and Suspected Problems Syncope (Acute) - Physical Exam General: Alert, Oriented x3, Cooperative, No apparent distress, Well developed, Well nourished HEENT: Atraumatic, PERRLA, EOMI, Normocephalic Oral: Moist Mucosa Neck: Supple, No JVD, Negative Carotid Bruits, No Nuchal Rigidity, Trachea Midline, Thyroid Normal Size and Texture Lungs: Clear to auscultation, Normal air movement, No rhonchi, No wheeze, No rales Cardiovascular: Regular rate, Regular Rhythm, Normal S1, Normal S2, No murmurs, No Ectopic Activity, PMI Normal, No rub noted, No Gallop Abdomen: Bowel Sounds Present, Soft, Non Tender, Non-Distended, No hernias noted Extremities: No clubbing, No cyanosis, No edema, Capillary Refill Less than 3 Seconds Skin: No rashes, No breakdown Musculoskeletal: No Tenderness to Palpation of Joints or Extremities Neurological: Cranial nerves II-XII grossly intact, Neuro grossly intact, Sensory exam intact to light touch and pain, Coordination normal Psych/Mental Status: Normal Affect, Appropriate, Alert and oriented to time, place, person, mood and affect Vital Signs Temp Pulse Resp BP Pulse Ox 97.9 F 69 18 125/55 H 96 07/12/18 22:00 07/12/18 22:00 07/12/18 22:00 07/12/18 22:00 07/12/18 22:00 Oxygen Delivery Method Room Air Weight: 57.1 kg Body Mass Index (BMI) 24.5 Finger Stick Blood Glucose 238 Laboratory Tests Past 24 Hrs 07/12/18 07/12/18 07/12/18 19:30 19:30 19:30 WBC 5.3 RBC 3.89 L Hgb 11.6 L Hct 34.2 L MCV 87.9 MCH 29.8 MCHC 33.9 RDW 12.5 RDW Differential 39.2 Plt Count 178 MPV 12.1 H Immature Gran % (Auto) 0.400 Neut % (Auto) 73.5 H Lymph % (Auto) 13.5 L [place] % (Auto) 11.4 H Eos % (Auto) 0.2 Baso % (Auto) 1.0 Absolute Neuts (auto) 3.9 Absolute Lymphs (auto) 0.71 L Total Counted Not Reportable Sodium 133 L Potassium 4.4 Chloride 101 Carbon Dioxide 26.0 Anion Gap 6 BUN 30 H Creatinine 1.50 H Estim Creat Clear Calc 24.71 Est GFR (MDRD) Af Amer 44 L Est GFR (MDRD) Non-Af 36 L BUN/Creatinine Ratio 20.0 Glucose 216 H Calcium 8.7 Total Bilirubin 0.30 AST 25 ALT 20 Alkaline Phosphatase 107 Troponin I < 0.015 Total Protein 6.6 Albumin 3.5 Globulin 3.1 Albumin/Globulin Ratio 1.1 Urine Color Urine Clarity Urine pH Ur Specific [place] Urine Protein Urine Glucose (UA) Urine Ketones Urine Occult Blood Urine Nitrite Urine Bilirubin Urine Urobilinogen Ur Leukocyte Esterase Urine RBC Urine WBC Ur Squamous Epith Cells Urine Bacteria Urine Mucus Ethyl Alcohol < 3.0 07/12/18 20:20 WBC RBC Hgb Hct MCV MCH MCHC RDW RDW Differential Plt Count MPV Immature Gran % (Auto) Neut % (Auto) Lymph % (Auto) [place] % (Auto) Eos % (Auto) Baso % (Auto) Absolute Neuts (auto) Absolute Lymphs (auto) Total Counted Sodium Potassium Chloride Carbon Dioxide Anion Gap BUN Creatinine Estim Creat Clear Calc Est GFR (MDRD) Af Amer Est GFR (MDRD) Non-Af BUN/Creatinine Ratio Glucose Calcium Total Bilirubin AST ALT Alkaline Phosphatase Troponin I Total Protein Albumin Globulin Albumin/Globulin Ratio Urine Color Yellow Urine Clarity Clear Urine pH 6.0 Ur Specific [place] 1.010 Urine Protein 30 H Urine Glucose (UA) Normal Urine Ketones Negative Urine Occult Blood Negative Urine Nitrite Negative Urine Bilirubin Negative Urine Urobilinogen Normal Ur Leukocyte Esterase Negative Urine RBC 0 SEEN Urine WBC 0 SEEN Ur Squamous Epith Cells 0 SEEN Urine Bacteria 0 SEEN Urine Mucus 0 SEEN Ethyl Alcohol POC Glucose 07/12/18 18:59 POC Glucose 238 H Assessment/Plan All Active Problems Syncope (Acute) Gastroenteritis (Resolved) ARF (acute renal failure) (Resolved) Dehydration (Resolved) Intractable nausea and vomiting (Resolved) H. pylori infection (Resolved) Hypokalemia (Resolved) Hypomagnesemia (Resolved) UTI (lower urinary tract infection) (Resolved) #1 syncope-etiology unclear, patient will be placed into observation status on PCU and monitored, she will have an echocardiogram performed tomorrow, she will be seen in consultation by cardiology #2 coronary artery disease #3 chronic kidney disease stage III secondary to type 2 diabetes #4 type 2 diabetes Code Visit OBSV E&M: 98675 Initial observation care L3
[2018-07-13] VITALS (15 sets, daily range): BP systolic 135–177; BP diastolic 52–75; PULSE 59–78; RESP 18; TEMP 36.6–36.9; O2SAT 95–99; BMI 26.6; BMI 26.7
--- NOTE | 2018-07-13 00:23 | ECHOD_ITS ---
Reason For Study: Syncope Procedure This was a 2D Doppler, Color Flow transthoracic echocardiogram. The exam was of adequate technical quality. Exam performed portable in patient room. Left Ventricle Normal LV size. Left ventricular systolic function is normal. The estimated ejection fraction is 65 %. Diastolic function is indeterminate. No regional wall motion abnormalities noted. Right Ventricle Normal RV size. Normal systolic function. Atria The left atrium is mildly enlarged. Normal right atrium. No doppler evidence for ASD. Mitral Valve There is no mitral annular calcification. Mild diffuse mitral valve thickening. Trivial mitral valve insufficiency. Tricuspid Valve Normal tricuspid valve. Mild tricuspid valve insufficiency. Right ventricular systolic pressure estimated to be 32 mmHg. Aortic Valve Trisinus/trileaflet aortic valve. Mild focal aortic valve calcification. Pulmonic Valve The pulmonic valve is not well visualized. Trivial pulmonic valve insufficiency. Great Vessels Normal sized aortic root. Pericardium/Pleural No pericardial effusion. MMode/2D Measurements & Calculations LVIDd: 4.3 cm IVSd: 1.4 cm Ao root diam: 2.6 cm LVIDs: 3.0 cm LVPWd: 1.1 cm RVDd: 3.6 cm FS: 31.2 % LAV(MOD-bp): 51.6 ml LVAd ap4: 21.7 cm2 SV(MOD-sp4): 31.3 ml LAV(MOD-bp) Indexed: 32.7 ml/m2 EDV(MOD-sp4): 54.4 ml LAV(MOD-sp2): 57.7 ml EDV(sp4-el): 56.8 ml LAV(MOD-sp4): 44.6 ml LVAs ap4: 12.2 cm2 ESV(MOD-sp4): 23.1 ml ESV(sp4-el): 23.6 ml EF(MOD-sp4): 57.6 % EF(sp4-el): 58.4 % SV(sp4-el): 33.2 ml LA A4 area: 16.2 cm2 LA dimension(2D): 4.6 cm RA A4 area: 13.9 cm2 Doppler Measurements & Calculations MV E max aaron: 85.7 cm/sec Lat Peak E' Aaron: 7.4 cm/sec Med Peak E' Aaron: 6.1 cm/sec MV A max aaron: 91.7 cm/sec E/E' lat: 11.7 E/E' med: 14.0 MV E/A: 0.94 Ao V2 max: 120.8 cm/sec LV V1 max: 98.2 cm/sec PA V2 max: 89.6 cm/sec Ao max P.8 mmHg LV V1 max P.9 mmHg Ao V2 mean: 83.3 cm/sec Ao mean P.0 mmHg Ao V2 VTI: 25.2 cm TR max aaron: 271.1 cm/sec TR max P.4 mmHg Interpretation Summary Left ventricular systolic function is normal. The estimated ejection fraction is 65 %. The left atrium is mildly enlarged. Mild diffuse mitral valve thickening. Trivial mitral valve insufficiency. Mild tricuspid valve insufficiency. Mild focal aortic valve calcification. Trivial pulmonic valve insufficiency. Right ventricular systolic pressure estimated to be 32 mmHg. Diastolic function is indeterminate. Ordering Physician: Joseph Miller Referring Physician: Katt Ramsay Performed By: Marisabel Phelan, REBEKAH, RVT
[2018-07-13] MEDS: Heparin Injection (Vial) 5,000 UNIT/ML VIAL 5000 UNIT SC ×2 (05:34→15:13)
[2018-07-13 05:57] LABS: Anion Gap 7 (5-15); BUN 26 mg/dL (7-18); BUN/Creat Ratio 23.9 RATIO (10-20); Calcium,Total 8.7 mg/dL (8.5-10.1); Chloride 109 mmol/L (98-107); Creatinine, Serum 1.09 mg/dL (0.55-1.02); EST Glomerular Filtration Rate 53 mL/min (>60); Est Glom Filt Rate - Afr Amer 64 mL/min (>60); Glucose 142 mg/dL (74-106); Potassium 3.8 mmol/L (3.5-5.1); Sodium Level 140 mmol/L (136-145)
[2018-07-13 06:51] LABS: Bedside Glucose 132 mg/dL (70-110)
[2018-07-13] MEDS: Lisinopril 20 MG Tablet PO (08:03)
[2018-07-13] MEDS: glipiZIDE 5 MG Tablet 2.5 MG PO (08:03)
[2018-07-13] MEDS: Aspirin E.C. 81 MG Tablet PO (08:03)
[2018-07-13] MEDS: 0.9% NaCl Peripheral Flush Adult/Peds IV (10:42)
[2018-07-13] MEDS: 0.9% Normal Saline 1,000 ML 100 ML IV ×2 (10:42→20:55)
[2018-07-13 10:54] LABS: Cholesterol 130 mg/dL (200); High Density Lipoprotein 37 mg/dL; Magnesium 1.9 mg/dL (1.6-2.6); Triglycerides 245 mg/dL; Very Low Density Lipoprotein 49 mg/dL (5-40)
[2018-07-13 11:01] LABS: Bedside Glucose 133 mg/dL (70-110)
--- NOTE | 2018-07-13 11:36 | PCM.PROGNOTE ---
Patient Problems: Active and Suspected Problems Syncope (Acute) Subjective: Patient seen and examined. Denies further syncope/presyncope. Complains of mild cough and postnasal drainage. Denies chest pain or shortness of breath. - Physical Exam General: Alert, Oriented x3, Cooperative HEENT: Atraumatic, PERRLA, EOMI, Normocephalic Neck: Supple, No JVD, Negative Carotid Bruits Lungs: Clear to auscultation, Normal air movement Cardiovascular: Regular rate, Regular Rhythm, Normal S1, Normal S2, No murmurs Abdomen: Bowel Sounds Present, Soft, Non Tender, Non-Distended Extremities: No clubbing, No cyanosis, No edema, Capillary Refill Less than 3 Seconds Skin: No rashes, No breakdown Musculoskeletal: No Tenderness to Palpation of Joints or Extremities Neurological: Cranial nerves II-XII grossly intact, Neuro grossly intact Psych/Mental Status: Normal Affect, Appropriate Vital Signs Temp Pulse Resp BP Pulse Ox 98.1 F 60 18 151/70 H 95 07/13/18 07:49 07/13/18 10:30 07/13/18 07:49 07/13/18 10:30 07/13/18 07:49 Oxygen Delivery Method Room Air Weight: 136 lb 7.458 oz Body Mass Index (BMI) 26.6 Finger Stick Blood Glucose 238 Orthostatic Vital Signs Start: 07/13/18 10:32 Freq: q24h Status: Active Protocol: Activity Type Activity Date Activity User E-Sign Co-Sign Detail Recorded Client Recorded Date Recorded By Document 07/13/18 10:30 [facility] [place] [id number] 07/13/18 10:35 [facility] [place] 07/13/18 10:30 Orthostatic Vitals Standing -Blood Pressure (90/60-120/80) 155/69 H -Extremity Use Left Arm -Pulse Rate (60-100) 68 Sitting -Blood Pressure (90/60-120/80) 151/67 H -Extremity Use Left Arm -Pulse Rate (60-100) 60 Lying -Blood Pressure (90/60-120/80) 151/70 H -Extremity Use Left Arm -Pulse Rate (60-100) 60 Intake and Output for Last 24 Hours 07/11/18 07/12/18 07/13/18 23:59 23:59 23:59 Intake Total 240 / 240 Balance 240 / 240 Laboratory Tests Past 24 Hrs 07/12/18 07/12/18 07/12/18 19:30 19:30 19:30 WBC 5.3 RBC 3.89 L Hgb 11.6 L Hct 34.2 L MCV 87.9 MCH 29.8 MCHC 33.9 RDW 12.5 RDW Differential 39.2 Plt Count 178 MPV 12.1 H Immature Gran % (Auto) 0.400 Neut % (Auto) 73.5 H Lymph % (Auto) 13.5 L [place] % (Auto) 11.4 H Eos % (Auto) 0.2 Baso % (Auto) 1.0 Absolute Neuts (auto) 3.9 Absolute Lymphs (auto) 0.71 L Total Counted Not Reportable Sodium 133 L Potassium 4.4 Chloride 101 Carbon Dioxide 26.0 Anion Gap 6 BUN 30 H Creatinine 1.50 H Estim Creat Clear Calc 24.71 Est GFR (MDRD) Af Amer 44 L Est GFR (MDRD) Non-Af 36 L BUN/Creatinine Ratio 20.0 Glucose 216 H Calcium 8.7 Magnesium Total Bilirubin 0.30 AST 25 ALT 20 Alkaline Phosphatase 107 Troponin I < 0.015 Total Protein 6.6 Albumin 3.5 Globulin 3.1 Albumin/Globulin Ratio 1.1 Triglycerides Cholesterol LDL Cholesterol VLDL Cholesterol HDL Cholesterol Urine Color Urine Clarity Urine pH Ur Specific [place] Urine Protein Urine Glucose (UA) Urine Ketones Urine Occult Blood Urine Nitrite Urine Bilirubin Urine Urobilinogen Ur Leukocyte Esterase Urine RBC Urine WBC Ur Squamous Epith Cells Urine Bacteria Urine Mucus Ethyl Alcohol < 3.0 07/12/18 07/13/18 07/13/18 20:20 05:30 10:29 WBC RBC Hgb Hct MCV MCH MCHC RDW RDW Differential Plt Count MPV Immature Gran % (Auto) Neut % (Auto) Lymph % (Auto) [place] % (Auto) Eos % (Auto) Baso % (Auto) Absolute Neuts (auto) Absolute Lymphs (auto) Total Counted Sodium 140 Potassium 3.8 Chloride 109 H Carbon Dioxide 24.0 Anion Gap 7 BUN 26 H Creatinine 1.09 H Estim Creat Clear Calc 34.00 Est GFR (MDRD) Af Amer 64 Est GFR (MDRD) Non-Af 53 L BUN/Creatinine Ratio 23.9 H Glucose 142 H Calcium 8.7 Magnesium 1.9 Total Bilirubin AST ALT Alkaline Phosphatase Troponin I Total Protein Albumin Globulin Albumin/Globulin Ratio Triglycerides 245 H Cholesterol 130 LDL Cholesterol 44 VLDL Cholesterol 49 H HDL Cholesterol 37 L Urine Color Yellow Urine Clarity Clear Urine pH 6.0 Ur Specific [place] 1.010 Urine Protein 30 H Urine Glucose (UA) Normal Urine Ketones Negative Urine Occult Blood Negative Urine Nitrite Negative Urine Bilirubin Negative Urine Urobilinogen Normal Ur Leukocyte Esterase Negative Urine RBC 0 SEEN Urine WBC 0 SEEN Ur Squamous Epith Cells 0 SEEN Urine Bacteria 0 SEEN Urine Mucus 0 SEEN Ethyl Alcohol 07/13/18 10:29 WBC RBC Hgb Hct MCV MCH MCHC RDW RDW Differential Plt Count MPV Immature Gran % (Auto) Neut % (Auto) Lymph % (Auto) [place] % (Auto) Eos % (Auto) Baso % (Auto) Absolute Neuts (auto) Absolute Lymphs (auto) Total Counted Sodium Potassium Chloride Carbon Dioxide Anion Gap BUN Creatinine Estim Creat Clear Calc Est GFR (MDRD) Af Amer Est GFR (MDRD) Non-Af BUN/Creatinine Ratio Glucose Calcium Magnesium Total Bilirubin AST ALT Alkaline Phosphatase Troponin I < 0.015 Total Protein Albumin Globulin Albumin/Globulin Ratio Triglycerides Cholesterol LDL Cholesterol VLDL Cholesterol HDL Cholesterol Urine Color Urine Clarity Urine pH Ur Specific [place] Urine Protein Urine Glucose (UA) Urine Ketones Urine Occult Blood Urine Nitrite Urine Bilirubin Urine Urobilinogen Ur Leukocyte Esterase Urine RBC Urine WBC Ur Squamous Epith Cells Urine Bacteria Urine Mucus Ethyl Alcohol POC Glucose 07/13/18 07/13/18 07/12/18 10:46 06:47 18:59 POC Glucose 133 H 132 H 238 H Medical Necessity - Tobacco Use Smoking Status: Former smoker Tobacco Use: Non-smoker Assessment/Plan All Active Problems Syncope (Acute) Gastroenteritis (Resolved) ARF (acute renal failure) (Resolved) Dehydration (Resolved) Intractable nausea and vomiting (Resolved) H. pylori infection (Resolved) Hypokalemia (Resolved) Hypomagnesemia (Resolved) UTI (lower urinary tract infection) (Resolved) 1. Syncope, unclear etiology-given cardiac history, cardiology consult placed. Troponin negative. Echocardiogram pending. Obtain orthostatic vitals. Fall precautions. Brain CT completed due to fall with head injury secondary to syncope. Brain CT showed chronic changes. Chest x-ray unremarkable. 2. Mild cough secondary to postnasal drainage-Augmentin regimen discontinued. Begin Flonase daily. 3. CAD status post stents to RCA and LAD in 2013 at [facility]-continue aspirin. Statin added. Not on beta-jenise. 4. Chronic COPD-no acute exacerbation. Albuterol aerosol as needed for shortness of breath. 5. Type 2 diabetes mellitus-continue home glipizide regimen. Accu-Cheks AC at bedtime with sliding scale insulin. 6. YAIMA on Chronic kidney disease stage III- Gentle IV fluids. Trend BMP. 7. Hypertension-stable, continue home lisinopril regimen. 8. Hyperlipidemia-not on statin? Lipid panel elevated. Begin low-dose statin. 9. Chronic gastroparesis/GERD- no current issues. Not on PPI. DVT prophylaxis-heparin subcu This patient was seen by STAN Berrios under the supervision of Dr. Mendoza.
[2018-07-13] MEDS: Fluticasone 0.05% 1 SPRAY NASAL.SRY 2 SPRAY NASAL (12:00)
--- NOTE | 2018-07-13 15:44 | PCM.CONS.C ---
Problem List (1) Syncope Status: Acute Qualifiers: Syncope type: unspecified Qualified Code(s): R55 - Syncope and collapse (2) CAD (coronary artery disease) Status: Chronic Qualifiers: Coronary Disease-Associated Artery/Lesion type: [place] artery [place] vs. transplanted heart: [place] heart Associated angina: without angina Qualified Code(s): I25.10 - Atherosclerotic heart disease of [place] coronary artery without angina pectoris (3) S/P PTCA (percutaneous transluminal coronary angioplasty) Status: Chronic (4) HLD (hyperlipidemia) Status: Chronic (5) HTN (hypertension) Status: Chronic Qualifiers: Hypertension type: essential hypertension Qualified Code(s): I10 - Essential (primary) hypertension (6) Diabetes mellitus type II, uncontrolled Status: Chronic (7) COPD (chronic obstructive pulmonary disease) Status: Chronic Qualifiers: COPD type: chronic bronchitis Chronic bronchitis type: unspecified Qualified Code(s): J42 - Unspecified chronic bronchitis (8) ARF (acute renal failure) Status: Resolved Reason for Consult Date of Consultation: 07/13/18 History of Present Illness: The patient is a 72 year old white female who was originally evaluated at [facility], from a cardiovascular standpoint, by Stephen Pittman MD, and has a cardiovascular diagnosis of CAD, status post PCI to the LAD and RCA, hyperlipidemia, and hypertension superimposed upon a history of diabetes mellitus and underlying COPD who presents for concerns of syncope and elevated creatinine levels. The patient had undergone previous noninvasive and invasive cardiovascular evaluation. In 2013 she had a transthoracic echocardiogram, which, based upon interpretation by Dr. Pittman demonstrated that she had normal left ventricular systolic function with an estimated LVEF of 65% with moderate concentric LVH with trivial TR and an estimated RV systolic pressure of 11 mmHg and decreased diastolic compliance. She also underwent evaluation with a diagnostic cardiac catheterization which per the report demonstrated that her left ventricle was hyperdynamic with an LVEF of 75%, the LAD stent was patent, the LCx had minimal luminal irregularities, the RCA stent was reported as patent. States she has not presented back to Dr. Pittman for outpatient cardiovascular follow-up. She notes that she has had episodes of near syncope/syncope. She notes recently she had an episode where she felt somewhat dizzy standing in line at the pharmacy. She subsequently fell backwards . She states she was taken to the emergency department for evaluation. She was told she had dehydration. Orthostatic blood pressures were reported as positive. She was treated medically and released home. However she has now returned for a recurrent episode of syncope. She notes that this episode occurred while exiting a restaurant. She states she had no warning that she recalls. However, according to the emergency department records there was a comment that she apparently felt dizzy prior to her event. She apparently fell backwards again. She was brought back to the hospital for further evaluation. She states that she notes when she has gotten up she has felt somewhat dizzy. She denies any associated chest discomfort at this time occurring with these events. She states she can have waxing and waning chest discomfort at other times. There is been no orthopnea or PND or peripheral pitting edema. She does not recall any obvious palpitations. Her cardiac enzymes have remained negative. She has remained in sinus rhythm. Her ECG demonstrated sinus rhythm with a low voltage QRS. A transthoracic echocardiogram was performed. Her left ventricular systolic function was thought to be normal with an LVEF of 65% with mild left atrial enlargement and mild diffuse thickening of the mitral valve with trivial MR, mild TR, mild focal aortic valve calcification, trivial MA, and an estimated RV systolic pressure 32 mmHg. There was evidence of determinant diastolic function. [] Past Medical History Allergies/Adverse Reactions: Allergies benzonatate [From Tessalon Perles] Allergy (Verified 07/12/18 17:11) lip, tongue swelling omeprazole [From Prilosec] Allergy (Verified 07/12/18 17:11) knee swelling and burning omeprazole magnesium [From Prilosec] Allergy (Verified 07/12/18 17:11) Other Home Medications: Ambulatory Orders Medication Instructions Recorded Aspirin E.C. [Ecotrin] 81 mg PO DAILY@0800 12/06/13 Nitroglycerin [Nitrostat] 0.4 mg SUBLINGUAL Q5M PRN 01/01/14 Lisinopril [Zestril] 20 mg PO DAILY 02/10/15 Albuterol Sulfate [Proair Hfa] 2 puff INHALATION BID 07/12/18 Biotin 10,000 mcg PO DAILY 07/12/18 Cholecalciferol (VIT D3) [Vitamin 1,000 unit PO DAILY 07/12/18 D] Cinnamon Bark [Cinnamon] 500 mg PO DAILY 07/12/18 Ginkgo Biloba 60 mg PO DAILY 07/12/18 Rutin/Hesp/Bioflav/C/[id number] 1 tab PO DAILY 07/12/18 [Bioflex Tablet] glipiZIDE [Glucotrol] 2.5 mg PO DAILY@0730 07/12/18 Amox-Clav 875-125 mg Tablet 1 tablet PO BID 07/13/18 Past Medical History (Chronic Problems): Chronic Problems Diabetes mellitus type II, uncontrolled (Chronic) COPD (chronic obstructive pulmonary disease) (Chronic) HLD (hyperlipidemia) (Chronic) Diastolic dysfunction (Chronic) Pancreatic atrophy (Chronic) HTN (hypertension) (Chronic) S/P PTCA (percutaneous transluminal coronary angioplasty) (Chronic) Gastroparesis (Chronic) GERD (gastroesophageal reflux disease) (Chronic) CAD (coronary artery disease) (Chronic) Surgical History: angioplasty, - - percutaneous coronary artery intervention with placement 2 stents, cholecystectomy- laparoscopic, , T+A, R cataract. 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 Denies: Shortness of Breath, Orthopnea, PND, Peripheral Edema, Palpitations, Lightheadedness Respiratory: Denies: Cough, Sputum Production, Hemoptysis Gastrointestinal: Denies: Hematemesis, Hematochezia, Melena Genitourinary: Denies: Dysuria, Hematuria Skin: Denies: Rash Subjectve: This is a 72-year-old white female who appears to be resting comfortably at the moment in no acute distress. Objective: Vital Signs Temp Pulse Resp BP Pulse Ox 97.9 F 62 18 145/52 H 98 07/13/18 13:30 07/13/18 15:23 07/13/18 13:30 07/13/18 13:30 07/13/18 13:30 Oxygen Delivery Method Room Air Weight: 136 lb 7.458 oz Body Mass Index (BMI) 26.6 Finger Stick Blood Glucose 238 Orthostatic Vital Signs Start: 07/13/18 10:32 Freq: q24h Status: Active Protocol: Activity Type Activity Date Activity User E-Sign Co-Sign Detail Recorded Client Recorded Date Recorded By Document 07/13/18 10:30 [facility] [place] [id number] 07/13/18 10:35 [facility] [place] 07/13/18 10:30 Orthostatic Vitals Standing -Blood Pressure (90/60-120/80 mm Hg) 155/69 H -Extremity Use Left Arm -Pulse Rate (60-100 beats/min) 68 Sitting -Blood Pressure (90/60-120/80 mm Hg) 151/67 H -Extremity Use Left Arm -Pulse Rate (60-100 beats/min) 60 Lying -Blood Pressure (90/60-120/80 mm Hg) 151/70 H -Extremity Use Left Arm -Pulse Rate (60-100 beats/min) 60 Intake and Output for Last 24 Hours 07/11/18 07/12/18 07/13/18 23:59 23:59 23:59 Intake Total 729 / 729 Balance 729 / 729 General: Awake, Alert, Oriented x 3, Cooperative, No Acute Distress HEENT: Atraumatic, Normocephalic, PERRL, EOMI, Sclera Non Icteric Oral: Moist Mucosa Neck: Supple, Good ROM, No JVD Lungs: Clear to auscultation Cardiovascular: Regular Rhythm, Normal S1, Normal S2 Murmur Murmur: Grade 1/6, Soft, Mid Systolic, LLSB, LVOT Vascular: No Carotid Bruits Abdomen: Bowel Sounds Present, Soft, Non Tender Extremities: No Cyanosis, No Clubbing, No edema Neurological: No Focal Motor or Sensory Deficit Psych/Mental Status: Appropriate 07/12/18 19:30: WBC 5.3, RBC 3.89 L, Hgb 11.6 L, Hct 34.2 L, MCV 87.9, MCH 29.8, MCHC 33.9, RDW 12.5, RDW Differential 39.2, Plt Count 178, MPV 12.1 H, Immature Gran % (Auto) 0.400, Neut % (Auto) 73.5 H, Lymph % (Auto) 13.5 L, [place] % (Auto) 11.4 H, Eos % (Auto) 0.2, Baso % (Auto) 1.0, Absolute Neuts (auto) 3.9, Total Counted Not Reportable 07/12/18 19:30: Sodium 133 L, Potassium 4.4, Chloride 101, Carbon Dioxide 26.0, Anion Gap 6, BUN 30 H, Creatinine 1.50 H, Est GFR (MDRD) Af Amer 44 L, Est GFR (MDRD) Non-Af 36 L, BUN/Creatinine Ratio 20.0, Glucose 216 H, Calcium 8.7, Total Bilirubin 0.30, Troponin I < 0.015 07/12/18 20:20: Urine Color Yellow, Urine Clarity Clear, Urine pH 6.0, Ur Specific [place] 1.010, Urine Protein 30 H, Urine Glucose (UA) Normal, Urine Ketones Negative, Urine Occult Blood Negative, Urine Nitrite Negative, Urine Bilirubin Negative, Urine Urobilinogen Normal, Ur Leukocyte Esterase Negative, Urine RBC 0 SEEN, Urine WBC 0 SEEN 07/13/18 05:30: Sodium 140, Potassium 3.8, Chloride 109 H, Carbon Dioxide 24.0, Anion Gap 7, BUN 26 H, Creatinine 1.09 H, Est GFR (MDRD) Af Amer 64, Est GFR (MDRD) Non-Af 53 L, BUN/Creatinine Ratio 23.9 H, Glucose 142 H, Calcium 8.7 07/13/18 10:29: Magnesium 1.9, Triglycerides 245 H, Cholesterol 130, LDL Cholesterol 44, VLDL Cholesterol 49 H, HDL Cholesterol 37 L 07/13/18 10:29: Troponin I < 0.015 07/13/18 13:11: Troponin I < 0.015 Rhythm: Sinus rhythm EKG: As noted above ECHO: As noted above Cardiac Cath: As noted above PCI: As noted above CXR: Preliminary report: No acute cardiopulmonary disease appreciated: Please see official report Assessment/Plan 1. Near syncope/syncope The etiology of the patient's recurrent event is somewhat uncertain. There have been symptoms compatible with orthostatic changes. She has had orthostatic blood pressure changes reported during a previous emergency department evaluation. She has been treated with IV fluids. At the same time there is concern as to whether or not she has any underlying cardiac dysrhythmia that may be contributing to her events. She is being monitored at this time. There is concern based upon her underlying history of CAD noting that she does describe some intermittent chest discomfort, as to whether or not she could have any progression of her CAD causing myocardial ischemia and transient dysrhythmias, etc. Thus this may need to be further evaluated as well either noninvasively or invasively. 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 At the present time she will continue to be monitored. She has received IV fluids. It would not be unreasonable to continue her cardiovascular evaluation. She is already had noninvasive evaluation. This may include additional studies such as a pharmacologic stress nuclear imaging study. If this is concerning she may need repeat diagnostic cardiac catheterization. If not then hopefully she would not have to have repeat diagnostic cardiac catheterization. If there is no other etiology to explain her event other than the possibility of dehydration and orthostatic changes and there is still concern of underlying cardiac dysrhythmias and she may need to be considered for a 30-day ambulatory event monitor or an implantable loop recorder. 2. CAD status post PCI She does have a history of CAD and PCI as noted above. Thus far there is no evidence of an acute coronary syndrome. She should continue risk factor evaluation/medical therapy as deemed appropriate. She should continue noninvasive and invasive evaluation of her CAD status as needed based on her ongoing concerns. 3. Hyperlipidemia She does have a history of hyperlipidemia. She should continue medical management. 4. Hypertension Her blood pressures are being followed. An attempt should be made to avoid significant hypotension or hypertension. 5. Diabetes mellitus She is being evaluated by internal medicine for any interaction of her diabetes mellitus with her near syncope/syncope. 6. COPD She has a history of underlying COPD. She will need to continue evaluation care as deemed appropriate. 7. Renal insufficiency Her creatinine level was somewhat elevated on admission. This may go along with concerns of dehydration. Status post IV fluids her creatinine level has improved. Her renal function can be reassessed as needed. Comment: The above was discussed with the patient, her spouse, and the [facility] hospitalist team. This note was generated using a voice recognition system and there may be incorrect words, spelling or punctuation that were not noted when reviewing the office note prior to saving.
--- NOTE | 2018-07-13 15:50 | CON.PCM_ITS ---
Problem List (1) Syncope Status: Acute Qualifiers: Syncope type: unspecified Qualified Code(s): R55 - Syncope and collapse (2) CAD (coronary artery disease) Status: Chronic Qualifiers: Coronary Disease-Associated Artery/Lesion type: [place] artery [place] vs. transplanted heart: [place] heart Associated angina: without angina Qualified Code(s): I25.10 - Atherosclerotic heart disease of [place] coronary artery without angina pectoris (3) S/P PTCA (percutaneous transluminal coronary angioplasty) Status: Chronic (4) HLD (hyperlipidemia) Status: Chronic (5) HTN (hypertension) Status: Chronic Qualifiers: Hypertension type: essential hypertension Qualified Code(s): I10 - Essential (primary) hypertension (6) Diabetes mellitus type II, uncontrolled Status: Chronic (7) COPD (chronic obstructive pulmonary disease) Status: Chronic Qualifiers: COPD type: chronic bronchitis Chronic bronchitis type: unspecified Qualified Code(s): J42 - Unspecified chronic bronchitis (8) ARF (acute renal failure) Status: Resolved Reason for Consult Date of Consultation: 07/13/18 History of Present Illness: The patient is a 72 year old white female who was originally evaluated at [facility], from a cardiovascular standpoint, by Stephen Pittman MD, and has a cardiovascular diagnosis of CAD, status post PCI to the LAD and RCA, hyperlipidemia, and hypertension superimposed upon a history of diabetes mellitus and underlying COPD who presents for concerns of syncope and elevated creatinine levels. The patient had undergone previous noninvasive and invasive cardiovascular evaluation. In 2013 she had a transthoracic echocardiogram, which, based upon interpretation by Dr. Pittman demonstrated that she had normal left ventricular systolic function with an estimated LVEF of 65% with moderate concentric LVH with trivial TR and an estimated RV systolic pressure of 11 mmHg and decreased diastolic compliance. She also underwent evaluation with a diagnostic cardiac catheterization which per the report demonstrated that her left ventricle was hyperdynamic with an LVEF of 75%, the LAD stent was patent, the LCx had minimal luminal irregularities, the RCA stent was reported as patent. States she has not presented back to Dr. Pittman for outpatient cardiovascular follow-up. She notes that she has had episodes of near syncope/syncope. She notes recently she had an episode where she felt somewhat dizzy standing in line at the pharmacy. She subsequently fell backwards . She states she was taken to the emergency department for evaluation. She was told she had dehydration. Orthostatic blood pressures were reported as positive. She was treated medically and released home. However she has now returned for a recurrent episode of syncope. She notes that this episode occurred while exiting a restaurant. She states she had no warning that she recalls. However, according to the emergency department records there was a comment that she apparently felt dizzy prior to her event. She apparently fell backwards again. She was brought back to the hospital for further evaluation. She states that she notes when she has gotten up she has felt somewhat dizzy. She denies any associated chest discomfort at this time occurring with these events. She states she can have waxing and waning chest discomfort at other times. There is been no orthopnea or PND or peripheral pitting edema. She does not recall any obvious palpitations. Her cardiac enzymes have remained negative. She has remained in sinus rhythm. Her ECG demonstrated sinus rhythm with a low voltage QRS. A transthoracic echocardiogram was performed. Her left ventricular systolic function was thought to be normal with an LVEF of 65% with mild left atrial enlargement and mild diffuse thickening of the mitral valve with trivial MR, mild TR, mild focal aortic valve calcification, trivial [place], and an estimated RV systolic pressure 32 mmHg. There was evidence of determinant diastolic function. [] Past Medical History Allergies/Adverse Reactions: Allergies benzonatate [From Tessalon Perles] Allergy (Verified 07/12/18 17:11) lip, tongue swelling omeprazole [From Prilosec] Allergy (Verified 07/12/18 17:11) knee swelling and burning omeprazole magnesium [From Prilosec] Allergy (Verified 07/12/18 17:11) Other Home Medications: Ambulatory Orders Medication Instructions Recorded Aspirin E.C. [Ecotrin] 81 mg PO DAILY@0800 12/06/13 Nitroglycerin [Nitrostat] 0.4 mg SUBLINGUAL Q5M PRN 01/01/14 Lisinopril [Zestril] 20 mg PO DAILY 02/10/15 Albuterol Sulfate [Proair Hfa] 2 puff INHALATION BID 07/12/18 Biotin 10,000 mcg PO DAILY 07/12/18 Cholecalciferol (VIT D3) [Vitamin 1,000 unit PO DAILY 07/12/18 D] Cinnamon Bark [Cinnamon] 500 mg PO DAILY 07/12/18 Ginkgo Biloba 60 mg PO DAILY 07/12/18 Rutin/Hesp/Bioflav/C/[id number] 1 tab PO DAILY 07/12/18 [Bioflex Tablet] glipiZIDE [Glucotrol] 2.5 mg PO DAILY@0730 07/12/18 Amox-Clav 875-125 mg Tablet 1 tablet PO BID 07/13/18 Past Medical History (Chronic Problems): Chronic Problems Diabetes mellitus type II, uncontrolled (Chronic) COPD (chronic obstructive pulmonary disease) (Chronic) HLD (hyperlipidemia) (Chronic) Diastolic dysfunction (Chronic) Pancreatic atrophy (Chronic) HTN (hypertension) (Chronic) S/P PTCA (percutaneous transluminal coronary angioplasty) (Chronic) Gastroparesis (Chronic) GERD (gastroesophageal reflux disease) (Chronic) CAD (coronary artery disease) (Chronic) Surgical History: angioplasty, - - percutaneous coronary artery intervention with placement 2 stents, cholecystectomy- laparoscopic, , T+A, R cataract. 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 Denies: Shortness of Breath, Orthopnea, PND, Peripheral Edema, Palpitations, Lightheadedness Respiratory: Denies: Cough, Sputum Production, Hemoptysis Gastrointestinal: Denies: Hematemesis, Hematochezia, Melena Genitourinary: Denies: Dysuria, Hematuria Skin: Denies: Rash Subjectve: This is a 72-year-old white female who appears to be resting comfortably at the moment in no acute distress. Objective: Vital Signs Temp Pulse Resp BP Pulse Ox 97.9 F 62 18 145/52 H 98 07/13/18 13:30 07/13/18 15:23 07/13/18 13:30 07/13/18 13:30 07/13/18 13:30 Oxygen Delivery Method Room Air Weight: 136 lb 7.458 oz Body Mass Index (BMI) 26.6 Finger Stick Blood Glucose 238 Orthostatic Vital Signs Start: 07/13/18 10:32 Freq: q24h Status: Active Protocol: Activity Type Activity Date Activity User E-Sign Co-Sign Detail Recorded Client Recorded Date Recorded By Document 07/13/18 10:30 [facility] [id number] 07/13/18 10:35 [facility] [place]/13[place]18 10:30 Orthostatic Vitals Standing -Blood Pressure (90/60-120/80 mm Hg) 155/69 H -Extremity Use Left Arm -Pulse Rate (60-100 beats/min) 68 Sitting -Blood Pressure (90/60-120/80 mm Hg) 151/67 H -Extremity Use Left Arm -Pulse Rate (60-100 beats/min) 60 Lying -Blood Pressure (90/60-120/80 mm Hg) 151/70 H -Extremity Use Left Arm -Pulse Rate (60-100 beats/min) 60 Intake and Output for Last 24 Hours 07/11/18 07/12/18 07/13/18 23:59 23:59 23:59 Intake Total 729 / 729 Balance 729 / 729 General: Awake, Alert, Oriented x 3, Cooperative, No Acute Distress HEENT: Atraumatic, Normocephalic, PERRL, EOMI, Sclera Non Icteric Oral: Moist Mucosa Neck: Supple, Good ROM, No JVD Lungs: Clear to auscultation Cardiovascular: Regular Rhythm, Normal S1, Normal S2 Murmur Murmur: Grade 1/6, Soft, Mid Systolic, LLSB, LVOT Vascular: No Carotid Bruits Abdomen: Bowel Sounds Present, Soft, Non Tender Extremities: No Cyanosis, No Clubbing, No edema Neurological: No Focal Motor or Sensory Deficit Psych/Mental Status: Appropriate 07/12/18 19:30: WBC 5.3, RBC 3.89 L, Hgb 11.6 L, Hct 34.2 L, MCV 87.9, MCH 29.8, MCHC 33.9, RDW 12.5, RDW Differential 39.2, Plt Count 178, MPV 12.1 H, Immature Gran % (Auto) 0.400, Neut % (Auto) 73.5 H, Lymph % (Auto) 13.5 L, [place] % (Auto) 11.4 H, Eos % (Auto) 0.2, Baso % (Auto) 1.0, Absolute Neuts (auto) 3.9, Total Counted Not Reportable 07/12/18 19:30: Sodium 133 L, Potassium 4.4, Chloride 101, Carbon Dioxide 26.0, Anion Gap 6, BUN 30 H, Creatinine 1.50 H, Est GFR (MDRD) Af Amer 44 L, Est GFR (MDRD) Non-Af 36 L, BUN/Creatinine Ratio 20.0, Glucose 216 H, Calcium 8.7, Total Bilirubin 0.30, Troponin I < 0.015 07/12/18 20:20: Urine Color Yellow, Urine Clarity Clear, Urine pH 6.0, Ur Specific [place] 1.010, Urine Protein 30 H, Urine Glucose (UA) Normal, Urine Ketones Negative, Urine Occult Blood Negative, Urine Nitrite Negative, Urine Bilirubin Negative, Urine Urobilinogen Normal, Ur Leukocyte Esterase Negative, Urine RBC 0 SEEN, Urine WBC 0 SEEN 07/13/18 05:30: Sodium 140, Potassium 3.8, Chloride 109 H, Carbon Dioxide 24.0, Anion Gap 7, BUN 26 H, Creatinine 1.09 H, Est GFR (MDRD) Af Amer 64, Est GFR (MDRD) Non-Af 53 L, BUN/Creatinine Ratio 23.9 H, Glucose 142 H, Calcium 8.7 07/13/18 10:29: Magnesium 1.9, Triglycerides 245 H, Cholesterol 130, LDL Cholesterol 44, VLDL Cholesterol 49 H, HDL Cholesterol 37 L 07/13/18 10:29: Troponin I < 0.015 07/13/18 13:11: Troponin I < 0.015 Rhythm: Sinus rhythm EKG: As noted above ECHO: As noted above Cardiac Cath: As noted above PCI: As noted above CXR: Preliminary report: No acute cardiopulmonary disease appreciated: Please see official report Assessment/Plan 1. Near syncope/syncope The etiology of the patient's recurrent event is somewhat uncertain. There have been symptoms compatible with orthostatic changes. She has had orthostatic blood pressure changes reported during a previous emergency department evaluation. She has been treated with IV fluids. At the same time there is concern as to whether or not she has any underlying cardiac dysrhythmia that may be contributing to her events. She is being monitored at this time. There is concern based upon her underlying history of CAD noting that she does describe some intermittent chest discomfort, as to whether or not she could have any progression of her CAD causing myocardial ischemia and transient dysrhythmias, etc. Thus this may need to be further evaluated as well either noninvasively or invasively. She has not been shown to have evidence of underlying acute ROD WELDER events or thromboembolic events to explain her near syncope/syncope. At the present time she will continue to be monitored. She has received IV fluids. It would not be unreasonable to continue her cardiovascular evaluation. She is already had noninvasive evaluation. This may include additional studies such as a pharmacologic stress nuclear imaging study. If this is concerning she may need repeat diagnostic cardiac catheterization. If not then hopefully she would not have to have repeat diagnostic cardiac catheterization. If there is no other etiology to explain her event other than the possibility of dehydration and orthostatic changes and there is still concern of underlying cardiac dysrhythmias and she may need to be considered for a 30-day ambulatory event monitor or an implantable loop recorder. 2. CAD status post PCI She does have a history of CAD and PCI as noted above. Thus far there is no evidence of an acute coronary syndrome. She should continue risk factor evaluation/medical therapy as deemed appropriate. She should continue noninvasive and invasive evaluation of her CAD status as needed based on her ongoing concerns. 3. Hyperlipidemia She does have a history of hyperlipidemia. She should continue medical management. 4. Hypertension Her blood pressures are being followed. An attempt should be made to avoid significant hypotension or hypertension. 5. Diabetes mellitus She is being evaluated by internal medicine for any interaction of her diabetes mellitus with her near syncope/syncope. 6. COPD She has a history of underlying COPD. She will need to continue evaluation care as deemed appropriate. 7. Renal insufficiency Her creatinine level was somewhat elevated on admission. This may go along with concerns of dehydration. Status post IV fluids her creatinine level has improved. Her renal function can be reassessed as needed. Comment: The above was discussed with the patient, her spouse, and the [facility] hospitalist team. This note was generated using a voice recognition system and there may be inco rrect words, spelling or punctuation that were not noted when reviewing the office note prior to saving.
[2018-07-13 16:06] LABS: Bedside Glucose 71 mg/dL (70-110)
[2018-07-13] MEDS: Oseltamivir Phosphate 30 MG Capsule PO (17:25)
[2018-07-13] MEDS: Ipratropium/Albuterol Sulfate 3 ML AMPUL.NEB INHALATION (19:19)
--- NOTE | 2018-07-13 22:36 | NURSING ---
This nurse gave patient peanut butter and crackers because of her glucose at 72 per patients request.
[2018-07-14] VITALS (13 sets, daily range): BP systolic 147–179; BP diastolic 48–62; PULSE 61–88; RESP 16–18; TEMP 35.9–36.9; O2SAT 95–100
[2018-07-14 00:16] LABS: Bedside Glucose 71 mg/dL (70-110)
[2018-07-14 06:12] LABS: Absolute Lymphocyte Count 1.22 X10^3/ul (0.83-4.51); Absolute Neutrophil Count 1.3 X10^3/uL (2.0-7.7); Basophil# 0.05 X10^3/uL; Basophil% 1.7 % (0-1); Eosinophil# 0.08 X10^3/uL; Eosinophils% 2.7 % (0-5); Hematocrit 30.1 % (37-47); Hemoglobin 10.3 g/dl (12.0-15.0); Lymphocyte # 1.22 X10^3/ul (4.0); Lymphocyte % 40.8 % (19-41); Mean Corp Hgb Conc 34.2 g/gl (32-36); Mean Corpuscular Hgb 30.5 pg (27.0-32.0); Mean Corpuscular Volume 89.1 fL (81-99); Monocyte# 0.37 X10^3/uL; Monocyte% 12.4 % (0-10); Neutrophil # 1.26 X10^3/uL (2.7-7.7); Neutrophil % 42.1 % (47-70); Platelet Count 149 K/mm3 (150-450); RBC Distribution Width CV 12.6 % (11.6-14.6); RBC Distribution Width SD 40.5 fl (35.1-43.9); Red Blood Count 3.38 M/mm3 (4.2-5.4)
[2018-07-14 06:17] LABS: POSITIVE COUNT NO; POSITIVE DIFFERENTIAL NO; POSITIVE MORPHOLOGY NO
[2018-07-14 06:31] LABS: Anion Gap 5 (5-15); BUN 18 mg/dL (7-18); BUN/Creat Ratio 19.4 RATIO (10-20); Calcium,Total 8.5 mg/dL (8.5-10.1); Chloride 113 mmol/L (98-107); Creatinine, Serum 0.93 mg/dL (0.55-1.02); EST Glomerular Filtration Rate 63 mL/min (>60); Est Glom Filt Rate - Afr Amer 77 mL/min (>60); Estimated Creatinine Clearance 39.85 ml/min; Glucose 113 mg/dL (74-106); Sodium Level 142 mmol/L (136-145)
[2018-07-14] MEDS: Heparin Injection (Vial) 5,000 UNIT/ML VIAL 5000 UNIT SC (06:39)
[2018-07-14 07:05] LABS: Bedside Glucose 105 mg/dL (70-110)
[2018-07-14] MEDS: 0.9% Normal Saline 1,000 ML 100 ML IV ×2 (07:25→18:16)
[2018-07-14] MEDS: Aspirin E.C. 81 MG Tablet PO (09:18)
[2018-07-14] MEDS: Fluticasone 0.05% 1 SPRAY NASAL.SRY 2 SPRAY NASAL (09:18)
[2018-07-14] MEDS: glipiZIDE 5 MG Tablet 2.5 MG PO (09:18)
[2018-07-14] MEDS: Lisinopril 20 MG Tablet PO ×2 (09:19→22:58)
[2018-07-14] MEDS: Oseltamivir Phosphate 30 MG Capsule PO ×2 (09:19→22:57)
--- NOTE | 2018-07-14 12:11 | PCM.PN.CARD ---
Subjectve: The patient still has intermittent episodes of dizziness. She has been diagnosed with influenza A. Objective: Vital Signs Temp Pulse Resp BP Pulse Ox 98.4 F 86 17 179/62 H 98 07/14/18 09:02 07/14/18 10:56 07/14/18 09:02 07/14/18 09:02 07/14/18 09:02 Oxygen Delivery Method Room Air Weight: 136 lb 7.458 oz Body Mass Index (BMI) 26.6 Finger Stick Blood Glucose 238 Orthostatic Vital Signs Start: 07/13/18 10:32 Freq: q24h Status: Active Protocol: Activity Type Activity Date Activity User E-Sign Co-Sign Detail Recorded Client Recorded Date Recorded By Document 07/13/18 10:30 [facility] [place] [id number] 07/13/18 10:35 [facility] [place] 07/13/18 10:30 Orthostatic Vitals Standing -Blood Pressure (90/60-120/80) 155/69 H -Extremity Use Left Arm -Pulse Rate (60-100) 68 Sitting -Blood Pressure (90/60-120/80) 151/67 H -Extremity Use Left Arm -Pulse Rate (60-100) 60 Lying -Blood Pressure (90/60-120/80) 151/70 H -Extremity Use Left Arm -Pulse Rate (60-100) 60 Intake and Output for Last 24 Hours 07/12/18 07/13/18 07/14/18 23:59 23:59 23:59 Intake Total 2461 / 2461 Balance 2461 / 2461 General: Awake, Alert, Oriented x 3, Cooperative, No Acute Distress HEENT: Atraumatic, Normocephalic, PERRL, EOMI, Sclera Non Icteric Oral: Moist Mucosa Neck: Supple, Good ROM, No JVD Lungs: Clear to auscultation Cardiovascular: Regular Rhythm, Normal S1, Normal S2 Abdomen: Bowel Sounds Present, Soft, Non Tender Extremities: No edema Neurological: No Focal Motor or Sensory Deficit Psych/Mental Status: Appropriate 07/13/18 13:11: Troponin I < 0.015 07/13/18 16:10: Troponin I < 0.015 07/14/18 05:56: WBC 3.0 L, RBC 3.38 L, Hgb 10.3 L, Hct 30.1 L, MCV 89.1, MCH 30.5, MCHC 34.2, RDW 12.6, RDW Differential 40.5, Plt Count 149 L, MPV 11.0, Immature Gran % (Auto) 0.300, Neut % (Auto) 42.1 L, Lymph % (Auto) 40.8, [place] % (Auto) 12.4 H, Eos % (Auto) 2.7, Baso % (Auto) 1.7 H, Absolute Neuts (auto) 1.3 L, Total Counted Not Reportable 07/14/18 05:56: Sodium 142, Potassium 4.0, Chloride 113 H, Carbon Dioxide 24.0, Anion Gap 5, BUN 18, Creatinine 0.93, Est GFR (MDRD) Af Amer 77, Est GFR (MDRD) Non-Af 63, BUN/Creatinine Ratio 19.4, Glucose 113 H, Calcium 8.5 Rhythm: Sinus rhythm Medical Necessity - Tobacco Use Smoking Status: Former smoker Tobacco Use: Non-smoker Assessment/Plan 1. Near syncope/syncope The etiology of the patient's recurrent event is somewhat uncertain. There have been symptoms compatible with orthostatic changes. She has had orthostatic blood pressure changes reported during a previous emergency department evaluation. She has been treated with IV fluids. At the same time there is concern as to whether or not she has any underlying cardiac dysrhythmia that may be contributing to her events. She is being monitored at this time. There is concern based upon her underlying history of CAD noting that she does describe some intermittent chest discomfort, as to whether or not she could have any progression of her CAD causing myocardial ischemia and transient dysrhythmias, etc. Thus this may need to be further evaluated as well either noninvasively or invasively. She has not been shown to have evidence of underlying acute GRANULATOR TENDER events or thromboembolic events to explain her near syncope/syncope. She has been diagnosed with influenza A. Thus there is a question as to whether or not that is contributing to her symptoms. At the present time she will continue to be monitored. She has received IV fluids. It would not be unreasonable to continue her cardiovascular evaluation. She is already had noninvasive evaluation. This may include additional studies such as a pharmacologic stress nuclear imaging study. If this is concerning she may need repeat diagnostic cardiac catheterization. If not then hopefully she would not have to have repeat diagnostic cardiac catheterization. If there is no other etiology to explain her event other than the possibility of dehydration and orthostatic changes and there is still concern of underlying cardiac dysrhythmias and she may need to be considered for a 30-day ambulatory event monitor or an implantable loop recorder. 2. CAD status post PCI She does have a history of CAD and PCI as noted above. Thus far there is no evidence of an acute coronary syndrome. She should continue risk factor evaluation/medical therapy as deemed appropriate. She should continue noninvasive and invasive evaluation of her CAD status as needed based on her ongoing concerns. 3. Hyperlipidemia She does have a history of hyperlipidemia. She should continue medical management. 4. Hypertension Her blood pressures are being followed. An attempt should be made to avoid significant hypotension or hypertension. 5. Diabetes mellitus She is being evaluated by internal medicine for any interaction of her diabetes mellitus with her near syncope/syncope. 6. COPD She has a history of underlying COPD. She will need to continue evaluation care as deemed appropriate. 7. Renal insufficiency Her creatinine level was somewhat elevated on admission. This may go along with concerns of dehydration. Status post IV fluids her creatinine level has improved. Her renal function can be reassessed as needed. 8. Influenza A She will continue evaluation and care per internal medicine. Comment: The above was discussed with the patient and the [facility] hospitalist team. This note was generated using a voice recognition system and there may be incorrect words, spelling or punctuation that were not noted when reviewing the office note prior to saving.
[2018-07-14] MEDS: hydrALAZINE 20 MG/ML Vial 10 MG IV (12:22)
[2018-07-14 12:31] LABS: Bedside Glucose 109 mg/dL (70-110)
--- NOTE | 2018-07-14 12:44 | PN_ITS ---
Patient Problems: Active and Suspected Problems Syncope (Acute) Subjective: Patient seen and examined. Continues to have dizziness in her head. Denies fever, chills. Denies significant shortness of breath. Denies chest pain. - Physical Exam General: Alert, Oriented x3, Cooperative HEENT: Atraumatic, PERRLA, EOMI, Normocephalic Oral: Moist Mucosa Neck: Supple, No JVD, Negative Carotid Bruits Lungs: Clear to auscultation, Diminished Cardiovascular: Regular rate, Regular Rhythm, Normal S1, Normal S2, No murmurs Abdomen: Bowel Sounds Present, Soft, Non Tender, Non-Distended Extremities: No clubbing, No cyanosis, No edema, Capillary Refill Less than 3 Seconds Skin: No rashes, No breakdown Musculoskeletal: No Tenderness to Palpation of Joints or Extremities Neurological: Cranial nerves II-XII grossly intact, Neuro grossly intact Psych/Mental Status: Normal Affect, Appropriate Vital Signs Temp Pulse Resp BP Pulse Ox 98.4 F 86 17 179/62 H 98 07/14/18 09:02 07/14/18 12:22 07/14/18 09:02 07/14/18 09:02 07/14/18 09:02 Oxygen Delivery Method Room Air Weight: 136 lb 7.458 oz Body Mass Index (BMI) 26.6 Finger Stick Blood Glucose 238 Intake and Output for Last 24 Hours 07/12/18 07/13/18 07/14/18 23:59 23:59 23:59 Intake Total 2461 / 2461 Balance 2461 / 2461 Microbiology Past 72 Hours 07/13/18 11:30 Respiratory Panel (PCR) - Final Mucosa - Nasopharyngeal Influenza A (Subtype H1) Laboratory Tests Past 24 Hrs 07/13/18 07/13/18 07/14/18 13:11 16:10 05:56 WBC 3.0 L RBC 3.38 L Hgb 10.3 L Hct 30.1 L MCV 89.1 MCH 30.5 MCHC 34.2 RDW 12.6 RDW Differential 40.5 Plt Count 149 L MPV 11.0 Immature Gran % (Auto) 0.300 Neut % (Auto) 42.1 L Lymph % (Auto) 40.8 [place] % (Auto) 12.4 H Eos % (Auto) 2.7 Baso % (Auto) 1.7 H Absolute Neuts (auto) 1.3 L Absolute Lymphs (auto) 1.22 Total Counted Not Reportable Sodium Potassium Chloride Carbon Dioxide Anion Gap BUN Creatinine Estim Creat Clear Calc Est GFR (MDRD) Af Amer Est GFR (MDRD) Non-Af BUN/Creatinine Ratio Glucose Calcium Troponin I < 0.015 < 0.015 07/14/18 05:56 WBC RBC Hgb Hct MCV MCH MCHC RDW RDW Differential Plt Count MPV Immature Gran % (Auto) Neut % (Auto) Lymph % (Auto) [place] % (Auto) Eos % (Auto) Baso % (Auto) Absolute Neuts (auto) Absolute Lymphs (auto) Total Counted Sodium 142 Potassium 4.0 Chloride 113 H Carbon Dioxide 24.0 Anion Gap 5 BUN 18 Creatinine 0.93 Estim Creat Clear Calc 39.85 Est GFR (MDRD) Af Amer 77 Est GFR (MDRD) Non-Af 63 BUN/Creatinine Ratio 19.4 Glucose 113 H Calcium 8.5 Troponin I POC Glucose 07/14/18 07/14/18 07/13/18 12:06 06:45 22:27 POC Glucose 109 105 71 07/13/18 16:02 POC Glucose 71 Medical Necessity - Tobacco Use Smoking Status: Former smoker Tobacco Use: Non-smoker Assessment/Plan All Active Problems Syncope (Acute) Gastroenteritis (Resolved) ARF (acute renal failure) (Resolved) Dehydration (Resolved) Intractable nausea and vomiting (Resolved) H. pylori infection (Resolved) Hypokalemia (Resolved) Hypomagnesemia (Resolved) UTI (lower urinary tract infection) (Resolved) 1. Syncope, unclear etiology-given cardiac history, cardiology consult placed. Troponin negative. Echocardiogram showed an EF of 65%, RVSP 32 mmHg. Orthostatic vitals negative. Fall precautions. Brain CT completed due to fall with head injury secondary to syncope. Brain CT showed chronic changes. Chest x-ray unremarkable. Plan for stress test in a.m. 2. Acute influenza A-previously on Augmentin which has been discontinued. Continue Flonase for postnasal drip. Continue renally dose Tamiflu regimen. Albuterol and DuoNeb aerosols. 3. CAD status post stents to RCA and LAD in 2013 at [facility]-continue aspirin. Statin added. Not on beta-jenise. 4. Chronic COPD-no acute exacerbation. Albuterol aerosol as needed for shortness of breath. 5. Type 2 diabetes mellitus-continue home glipizide regimen. Accu-Cheks AC at bedtime with sliding scale insulin. 6. YAIMA on Chronic kidney disease stage III- Gentle IV fluids. Trend BMP. 7. Hypertension-stable, continue home lisinopril regimen. 8. Hyperlipidemia-not on statin? Lipid panel elevated. Begin low-dose statin. 9. Chronic gastroparesis/GERD- no current issues. Not on PPI. DVT prophylaxis-heparin subcu This patient was seen by STAN Berrios under the supervision of Dr. Mendoza.
[2018-07-14] MEDS: Ipratropium/Albuterol Sulfate 3 ML AMPUL.NEB INHALATION (13:10)
[2018-07-14 18:20] LABS: Bedside Glucose 102 mg/dL (70-110)
[2018-07-14] MEDS: Atorvastatin Calcium 10 MG Tablet PO (22:57)
[2018-07-14 23:05] LABS: Bedside Glucose 107 mg/dL (70-110)
[2018-07-15] VITALS (10 sets, daily range): BP systolic 158–178; BP diastolic 43–64; PULSE 60–89; RESP 16–18; TEMP 36.4–36.8; O2SAT 95–99
[2018-07-15] MEDS: 0.9% Normal Saline 1,000 ML 100 ML IV (05:24)
[2018-07-15] MEDS: Lisinopril 20 MG Tablet PO (05:24)
[2018-07-15] MEDS: Aspirin E.C. 81 MG Tablet PO (05:24)
--- NOTE | 2018-07-15 05:55 | EKG12_ITS ---
Test Reason : AM Blood Pressure : / mmHG Vent. Rate : 061 BPM Atrial Rate : 061 BPM P-R Int : 148 ms QRS Dur : 074 ms QT Int : 406 ms P-R-T Axes : 064 038 046 degrees QTc Int : 408 ms Normal sinus rhythm Possible Left atrial enlargement Borderline ECG Confirmed by TERI NICOLE, BRUCE ([id number]), managing editor FELICIA YIN ([id number] on 07/22/2018 12:21:04 PM Referred By: Joseph Miller Confirmed By:BRUCE WILLIAMSON MD
[2018-07-15 05:58] LABS: International Normalized Ratio 1.1; Prothrombin Time (Protime)PT. 13.9 SECONDS (11.7-14.9)
[2018-07-15 06:07] LABS: Partial Thromboplast Time 34.5 Seconds (24.1-36.2)
[2018-07-15 06:17] LABS: Absolute Lymphocyte Count 1.88 X10^3/ul (0.83-4.51); Basophil# 0.04 X10^3/uL; Basophil% 0.9 % (0-1); Eosinophil# 0.07 X10^3/uL; Eosinophils% 1.5 % (0-5); Hematocrit 32.5 % (37-47); Hemoglobin 11.1 g/dl (12.0-15.0); Lymphocyte # 1.88 X10^3/ul (4.0); Lymphocyte % 41.6 % (19-41); Mean Corp Hgb Conc 34.2 g/gl (32-36); Mean Corpuscular Hgb 30.1 pg (27.0-32.0); Mean Corpuscular Volume 88.1 fL (81-99); Mean Platelet Vol. 11.6 fl (6.2-12.0); Monocyte# 0.49 X10^3/uL; Monocyte% 10.8 % (0-10); Neutrophil # 2.02 X10^3/uL (2.7-7.7); Neutrophil % 44.8 % (47-70); Platelet Count 184 K/mm3 (150-450); RBC Distribution Width CV 12.3 % (11.6-14.6); RBC Distribution Width SD 38.5 fl (35.1-43.9); Red Blood Count 3.69 M/mm3 (4.2-5.4); White Blood Count 4.5 K/mm3 (4.4-11.0)
[2018-07-15 06:21] LABS: Anion Gap 5 (5-15); BUN 15 mg/dL (7-18); Calcium,Total 8.9 mg/dL (8.5-10.1); Chloride 111 mmol/L (98-107); Creatinine, Serum 0.88 mg/dL (0.55-1.02); EST Glomerular Filtration Rate 67 mL/min (>60); Est Glom Filt Rate - Afr Amer 81 mL/min (>60); Estimated Creatinine Clearance 42.12 ml/min; Glucose 103 mg/dL (74-106); Sodium Level 142 mmol/L (136-145)
[2018-07-15 06:28] LABS: Differential Indicated SCAN CRITERIA MET; POSITIVE COUNT NO; POSITIVE DIFFERENTIAL NO; POSITIVE MORPHOLOGY YES
[2018-07-15 06:55] LABS: Bedside Glucose 107 mg/dL (70-110)
[2018-07-15] MEDS: Ipratropium/Albuterol Sulfate 3 ML AMPUL.NEB INHALATION ×2 (06:57→13:12)
[2018-07-15 07:03] LABS: Differential Comment SCANNED; Reactive Lymphocyte 1+; Red Cell Morphology NORM C+C NORMAL (NORM C&C)
[2018-07-15] MEDS: 0.9% NaCl Peripheral Flush Adult/Peds IV (11:10)
[2018-07-15] MEDS: Ondansetron 4 MG/2 ML Vial IV (11:10)
--- NOTE | 2018-07-15 11:41 | STRESSREP ---
Stress Test Report Pharmacologic myocardial perfusion stress test. 72-year-old lady with a history of chest pain coronary artery disease. Stress protocol: Resting EKG demonstrates normal sinus rhythm with rate of 64 bpm normal intervals are noted resting blood pressure 162/70 mmHg. 0.4 mg of regadenoson was infused per usual protocol followed by rapid intravenous saline flush injection continuous EKG monitoring was performed. The patient maintained sinus rhythm throughout the recording. At rest there were no ST or T wave changes noted suggest abnormal flow reserve at peak infusion nonspecific ST-T wave changes were noted. Resting blood pressure 162/70 final blood pressure was the same. Maximum blood pressure 170/62 mmHg. Myocardial perfusion protocol. 12.0 mCi of technetium 99m sestamibi was injected at rest. 0.4 mg of regadenoson was infused per usual protocol peak infusion 33.7 mCi of technetium 99m sestamibi was injected stress images were obtained stress and rest images were reconstructed and compared in the short axis vertical and horizontal long axis. Gated images were also obtained Perfusion SPECT analysis: Review of the stress images demonstrate normal uptake of tracer noted in all areas of the myocardium. The resting images similarly demonstrate normal uptake of tracer noted in all areas of the myocardium. No areas of reversibility are noted suggest ischemia no previous infarct is noted. Gated SPECT analysis: Gated ejection fraction is noted to be 63%. Conclusion: Normal pharmacologic myocardial perfusion stress test. Preserved ejection fraction.
--- NOTE | 2018-07-15 11:45 | CASEMGMT ---
This RN CM to room with GOLDSMITH form at this time, explanation done/pt voices understanding, and signs GOLDSMITH form at this time. Original to chart and copy to pt at this time. Pt voices no further questions/concerns/needs at this time. [place] ROBIN DEJESUS
[2018-07-15] MEDS: Fluticasone 0.05% 1 SPRAY NASAL.SRY 2 SPRAY NASAL (12:20)
[2018-07-15] MEDS: glipiZIDE 5 MG Tablet 2.5 MG PO (12:20)
[2018-07-15] MEDS: Oseltamivir Phosphate 30 MG Capsule PO (12:20)
[2018-07-15 12:46] LABS: Bedside Glucose 136 mg/dL (70-110)
--- NOTE | 2018-07-15 12:58 | PCM.DC ---
- Discharge Diagnoses Current Active Problems: Current Active and Chronic Problems Syncope (Acute) You will use the following diet at home:: Cardiac Discharge Activity: Return to Normal Activity Call your doctor if you observe: Dizziness, Fainting spells, Chest pain Allergies/Adverse Reactions: Allergies benzonatate [From Tessalon Perles] Allergy (Verified 07/12/18 17:11) lip, tongue swelling omeprazole [From Prilosec] Allergy (Verified 07/12/18 17:11) knee swelling and burning omeprazole magnesium [From Prilosec] Allergy (Verified 07/12/18 17:11) Other Medications to take at Discharge Aspirin E.C. [Ecotrin] 81 mg PO DAILY@0800 12/06/13 Nitroglycerin [Nitrostat] 0.4 mg SUBLINGUAL Q5M PRN 01/01/14 Lisinopril [Zestril] 20 mg PO DAILY 02/10/15 Albuterol Sulfate [Proair Hfa] 2 puff INHALATION BID 07/12/18 Biotin 10,000 mcg PO DAILY 07/12/18 Cholecalciferol (VIT D3) [Vitamin D3] 1,000 unit PO DAILY 07/12/18 Cinnamon Bark [Cinnamon] 500 mg PO DAILY 07/12/18 Ginkgo Biloba 60 mg PO DAILY 07/12/18 Rutin/Hesp/Bioflav/C/[id number] [Bioflex Tablet] 1 tab PO DAILY 07/12/18 glipiZIDE [Glucotrol] 2.5 mg PO DAILY@0730 07/12/18 Atorvastatin Calcium [Lipitor] 10 mg PO QHS #30 tablet 07/15/18 Fluticasone 0.05% [Flonase Nasal [place]] 2 spray NASAL DAILY #1 bottle 07/15/18 Oseltamivir Phosphate [Tamiflu] 30 mg PO BID #6 capsule 07/15/18 The following prescriptions were given: Atorvastatin Calcium [Lipitor] 10 mg PO QHS #30 tablet Fluticasone 0.05% [Flonase Nasal [place]] 2 spray NASAL DAILY #1 bottle Oseltamivir Phosphate [Tamiflu] 30 mg PO BID #6 capsule Primary Care Physician: Katt Ramsay MD [Primary Care Provider] - Please follow up with your Primary Care Physician in: 1 Week Test Results: Test results from this visit will be discussed in further detail at your follow-up appointment, if applicable. Please Follow Up With: Stephen Pittman MD - Or Dr. Solorzano When: 1 Week Proposed Discharge Date: 07/15/18
--- NOTE | 2018-07-15 13:01 | DCINST_ITS ---
- Discharge Diagnoses Current Active Problems: Current Active and Chronic Problems Syncope (Acute) You will use the following diet at home:: Cardiac Discharge Activity: Return to Normal Activity Call your doctor if you observe: Dizziness, Fainting spells, Chest pain Allergies/Adverse Reactions: Allergies benzonatate [From Tessalon Perles] Allergy (Verified 07/12/18 17:11) lip, tongue swelling omeprazole [From Prilosec] Allergy (Verified 07/12/18 17:11) knee swelling and burning omeprazole magnesium [From Prilosec] Allergy (Verified 07/12/18 17:11) Other Medications to take at Discharge Aspirin E.C. [Ecotrin] 81 mg PO DAILY@0800 12/06/13 Nitroglycerin [Nitrostat] 0.4 mg SUBLINGUAL Q5M PRN 01/01/14 Lisinopril [Zestril] 20 mg PO DAILY 02/10/15 Albuterol Sulfate [Proair Hfa] 2 puff INHALATION BID 07/12/18 Biotin 10,000 mcg PO DAILY 07/12/18 Cholecalciferol (VIT D3) [Vitamin D3] 1,000 unit PO DAILY 07/12/18 Cinnamon Bark [Cinnamon] 500 mg PO DAILY 07/12/18 Ginkgo Biloba 60 mg PO DAILY 07/12/18 Rutin/Hesp/Bioflav/C/[id number] [Bioflex Tablet] 1 tab PO DAILY 07/12/18 glipiZIDE [Glucotrol] 2.5 mg PO DAILY@0730 07/12/18 Atorvastatin Calcium [Lipitor] 10 mg PO QHS #30 tablet 07/15/18 Fluticasone 0.05% [Flonase Nasal [place]] 2 spray NASAL DAILY #1 bottle 07/15/18 Oseltamivir Phosphate [Tamiflu] 30 mg PO BID #6 capsule 07/15/18 The following prescriptions were given: Atorvastatin Calcium [Lipitor] 10 mg PO QHS #30 tablet Fluticasone 0.05% [Flonase Nasal [place]] 2 spray NASAL DAILY #1 bottle Oseltamivir Phosphate [Tamiflu] 30 mg PO BID #6 capsule Primary Care Physician: Katt Ramsay MD [Primary Care Provider] - Please follow up with your Primary Care Physician in: 1 Week Test Results: Test results from this visit will be discussed in further detail at your follow- up appointment, if applicable. Please Follow Up With: Stephen Pittman MD - Or Dr. Solorzano When: 1 Week Proposed Discharge Date: 07/15/18
--- NOTE | 2018-07-15 13:02 | PCM.DC.SUM ---
<Tatyana Reaves - Last Filed: 07/15/18 13:09> Discharge Date and Diagnosis Date of Admission: 07/12/18 Date of Discharge: 07/15/18 - Primary Discharge Diagnosis Active and Suspected Problems 1. Syncope, suspect secondary to orthostatic changes associated with illness as a result of acute influenza A virus 2. Acute influenza A 3. CAD status post stents to RCA and LAD in [address] [facility] 4. Chronic COPD 5. Type 2 diabetes mellitus 6. YAIMA on Chronic kidney disease stage III 7. Hypertension 8. Hyperlipidemia 9. Chronic gastroparesis/GERD - Secondary Discharge Diagnosis Chronic Problems Diabetes mellitus type II, uncontrolled (Chronic) COPD (chronic obstructive pulmonary disease) (Chronic) HLD (hyperlipidemia) (Chronic) Diastolic dysfunction (Chronic) Pancreatic atrophy (Chronic) HTN (hypertension) (Chronic) S/P PTCA (percutaneous transluminal coronary angioplasty) (Chronic) Gastroparesis (Chronic) GERD (gastroesophageal reflux disease) (Chronic) CAD (coronary artery disease) (Chronic) Hospital Course and Treatment Imaging Results: Diagnostic Data Brain CT 07/12/18 18:49 IMPRESSION: Chronic involutional changes of the brain. Mild opacification of the visualized maxillary and ethmoid sinuses consistent with a history of sinusitis. Electronically Signed: Johana Bonilla MD at 21:28 EDT Tel , Service support , Chest X-Ray 07/12/18 18:49 IMPRESSION: No acute cardiopulmonary process. Electronically Signed: Johana Bonilla MD at 21:29 EDT Tel , Service support , Dr. Solorzano- Cardiology Operations: None Procedures: 2-D Echocardiogram, Stress test Summary of Care Provided: The patient is a 72 year old F admitted 07/12/2018 due to syncope. 1. Syncope, suspect secondary to orthostatic changes as a result of acute viral illness-given cardiac history, cardiology consult placed. Troponin negative. Echocardiogram showed an EF of 65%, RVSP 32 mmHg. Orthostatic vitals negative. Brain CT completed due to fall with head injury secondary to syncope. Brain CT showed chronic changes. Chest x-ray unremarkable. Patient underwent nuclear stress test which was negative for ischemia. Follow-up with primary care physician in 1 week. Follow-up with cardiology in 1 week. Patient was previously to follow-up with Dr. Pittman and has not yet done so. Follow-up with Dr. Pittman or Dr. Solorzano who was consulted during this admission. If patient has further episodes of syncope, she may require 30-day event recorder to further assess for arrhythmia. 2. Acute influenza A-previously on Augmentin which has been discontinued. Continue Flonase for postnasal drip. Continue renally dose Tamiflu regimen. 3. CAD status post stents to RCA and LAD in [address] [facility]-continue aspirin. Statin added. Not on beta-jenise. 4. Chronic COPD-no acute exacerbation. 5. Type 2 diabetes mellitus-continue home glipizide regimen. 6. YAIMA on Chronic kidney disease stage III-resolved with IV fluids. 7. Hypertension-stable, continue home lisinopril regimen. 8. Hyperlipidemia-not on statin? Lipid panel elevated. Initiated on low-dose statin. 9. Chronic gastroparesis/GERD- no current issues. Not on PPI. General: Alert, Oriented x3, Cooperative HEENT: Atraumatic, PERRLA, EOMI, Normocephalic Oral: Moist Mucosa Neck: Supple, No JVD, Negative Carotid Bruits Lungs: Clear to auscultation, Diminished Cardiovascular: Regular rate, Regular Rhythm, Normal S1, Normal S2, No murmurs Abdomen: Bowel Sounds Present, Soft, Non Tender, Non-Distended Extremities: No clubbing, No cyanosis, No edema, Capillary Refill Less than 3 Seconds Skin: No rashes, No breakdown Musculoskeletal: No Tenderness to Palpation of Joints or Extremities Neurological: Cranial nerves II-XII grossly intact, Neuro grossly intact Psych/Mental Status: Normal Affect, Appropriate Patient seen and examined prior to discharge. Physical assessment as noted above. Patient is stable for discharge with follow up recommendations as noted above. This patient was seen by STAN Berrios under the supervision of Dr. Spence. - Physical Exam Vital Signs Temp Pulse Resp BP Pulse Ox 98.2 F 76 16 158/43 H 95 07/15/18 07:38 07/15/18 11:53 07/15/18 07:38 07/15/18 07:38 07/15/18 12:49 Oxygen Delivery Method Room Air Weight: 136 lb 7.458 oz Body Mass Index (BMI) 26.6 Finger Stick Blood Glucose 238 Intake and Output for Last 24 Hours 07/13/18 07/14/18 07/15/18 23:59 23:59 23:59 Intake Total 2461 / 2461 2767 / 2767 1343 / 1343 Balance 2461 / 2461 2767 / 2767 1343 / 1343 Microbiology Past 72 Hours 07/13/18 11:30 Respiratory Panel (PCR) - Final Mucosa - Nasopharyngeal Influenza A (Subtype H1) Laboratory Tests Past 24 Hrs 07/15/18 07/15/18 07/15/18 05:32 05:32 05:32 WBC 4.5 RBC 3.69 L Hgb 11.1 L Hct 32.5 L MCV 88.1 MCH 30.1 MCHC 34.2 RDW 12.3 RDW Differential 38.5 Plt Count 184 MPV 11.6 Immature Gran % (Auto) 0.400 Neut % (Auto) 44.8 L Lymph % (Auto) 41.6 H [place] % (Auto) 10.8 H Eos % (Auto) 1.5 Baso % (Auto) 0.9 Absolute Neuts (auto) 2.0 Absolute Lymphs (auto) 1.88 Total Counted Not Reportable Differential Comment SCANNED Reactive Lymphocytes 1+ RBC Morphology NORM C+C PT 13.9 INR 1.1 APTT 34.5 Sodium 142 Potassium 4.0 Chloride 111 H Carbon Dioxide 26.0 Anion Gap 5 BUN 15 Creatinine 0.88 Estim Creat Clear Calc 42.12 Est GFR (MDRD) Af Amer 81 Est GFR (MDRD) Non-Af 67 BUN/Creatinine Ratio 17.0 Glucose 103 Calcium 8.9 POC Glucose 07/15/18 07/15/18 07/14/18 12:08 06:37 22:52 POC Glucose 136 H 107 107 07/14/18 18:11 POC Glucose 102 Discharge Diet: Low fat/ Low Cholesterol Discharge Activity: Return to Normal Activity Call your doctor if you observe: Dizziness, Fainting spells, Chest pain Home Medications: Medications to take at Discharge Aspirin E.C. [Ecotrin] 81 mg PO DAILY@0800 12/06/13 Nitroglycerin [Nitrostat] 0.4 mg SUBLINGUAL Q5M PRN 01/01/14 Lisinopril [Zestril] 20 mg PO DAILY 02/10/15 Albuterol Sulfate [Proair Hfa] 2 puff INHALATION BID 07/12/18 Biotin 10,000 mcg PO DAILY 07/12/18 Cholecalciferol (VIT D3) [Vitamin D3] 1,000 unit PO DAILY 07/12/18 Cinnamon Bark [Cinnamon] 500 mg PO DAILY 07/12/18 Ginkgo Biloba 60 mg PO DAILY 07/12/18 Rutin/Hesp/Bioflav/C/[id number] [Bioflex Tablet] 1 tab PO DAILY 07/12/18 glipiZIDE [Glucotrol] 2.5 mg PO DAILY@0730 07/12/18 Atorvastatin Calcium [Lipitor] 10 mg PO QHS #30 tablet 07/15/18 Fluticasone 0.05% [Flonase Nasal [place]] 2 spray NASAL DAILY #1 bottle 07/15/18 Oseltamivir Phosphate [Tamiflu] 30 mg PO BID #6 capsule 07/15/18 Following Prescrptions Were Given to Patient: Atorvastatin Calcium [Lipitor] 10 mg PO QHS #30 tablet Fluticasone 0.05% [Flonase Nasal [place]] 2 spray NASAL DAILY #1 bottle Oseltamivir Phosphate [Tamiflu] 30 mg PO BID #6 capsule Primary Care Physician: Katt Ramsay MD [Primary Care Provider] - Please follow up with your Primary Care Physician in: 1 Week Please Follow Up With: Stephen Pittman MD - Or Dr. Solorzano When: 1 Week Disposition: Home Minutes spent on discharge:: 35 Patient Condition:: Stable Medical Necessity - Tobacco Use Smoking Status: Former smoker Tobacco Use: Non-smoker Meaningful Use Info Meaningful Use Diagnoses (Choose all that apply): None applicable <Eddi Spence - Last Filed: 07/15/18 14:23> Discharge Date and Diagnosis - Secondary Discharge Diagnosis Chronic Problems Diabetes mellitus type II, uncontrolled (Chronic) COPD (chronic obstructive pulmonary disease) (Chronic) HLD (hyperlipidemia) (Chronic) Diastolic dysfunction (Chronic) Pancreatic atrophy (Chronic) HTN (hypertension) (Chronic) S/P PTCA (percutaneous transluminal coronary angioplasty) (Chronic) Gastroparesis (Chronic) GERD (gastroesophageal reflux disease) (Chronic) CAD (coronary artery disease) (Chronic) Hospital Course and Treatment Imaging Results: 07/15/18 05:55 Nuclear Stress Test - Chemical [NM] AM (NON MEDS) Summary of Care Provided: The patient is a 72 year old F [] - Physical Exam Vital Signs Temp Pulse Resp BP Pulse Ox 98.2 F 76 16 158/43 H 95 07/15/18 07:38 07/15/18 11:53 07/15/18 07:38 07/15/18 07:38 07/15/18 12:49 Oxygen Delivery Method Room Air Weight: 136 lb 7.458 oz Body Mass Index (BMI) 26.6 Finger Stick Blood Glucose 238 Intake and Output for Last 24 Hours 07/13/18 07/14/18 07/15/18 23:59 23:59 23:59 Intake Total 2461 / 2461 2767 / 2767 1343 / 1343 Balance 2461 / 2461 2767 / 2767 1343 / 1343 Microbiology Past 72 Hours 07/13/18 11:30 Respiratory Panel (PCR) - Final Mucosa - Nasopharyngeal Influenza A (Subtype H1) Laboratory Tests Past 24 Hrs 07/15/18 07/15/18 07/15/18 05:32 05:32 05:32 WBC 4.5 RBC 3.69 L Hgb 11.1 L Hct 32.5 L MCV 88.1 MCH 30.1 MCHC 34.2 RDW 12.3 RDW Differential 38.5 Plt Count 184 MPV 11.6 Immature Gran % (Auto) 0.400 Neut % (Auto) 44.8 L Lymph % (Auto) 41.6 H [place] % (Auto) 10.8 H Eos % (Auto) 1.5 Baso % (Auto) 0.9 Absolute Neuts (auto) 2.0 Absolute Lymphs (auto) 1.88 Total Counted Not Reportable Differential Comment SCANNED Reactive Lymphocytes 1+ RBC Morphology NORM C+C PT 13.9 INR 1.1 APTT 34.5 Sodium 142 Potassium 4.0 Chloride 111 H Carbon Dioxide 26.0 Anion Gap 5 BUN 15 Creatinine 0.88 Estim Creat Clear Calc 42.12 Est GFR (MDRD) Af Amer 81 Est GFR (MDRD) Non-Af 67 BUN/Creatinine Ratio 17.0 Glucose 103 Calcium 8.9 POC Glucose 07/15/18 07/15/18 07/14/18 12:08 06:37 22:52 POC Glucose 136 H 107 107 07/14/18 18:11 POC Glucose 102 Code Visit Addendum: Dr. Spence I personally examined the patient and reviewed the chart. I agree with the above. 72-year-old female presenting with near syncope/syncopal episode while at home. She was having symptoms that were compatible with orthostatic changes and she has had orthostatic issues on her previous ER evaluations. She was also evaluated first with a stress test for underlying CAD, and it was found to be normal. She is also found to be diagnosed with influenza A and was started on Tamiflu. She does feel better than when she came in though she does still have intermittent dizziness. We discussed maintaining hydration and continuing with the Tamiflu. She states that she has been having flulike symptoms on and off since about April that is the first time she tested positive for. She is to be discharged today with follow-up with her primary care physician. If she has any further episodes of syncope will likely require 30-day event monitor. OBSV E&M: 27506 Observation care discharge
--- NOTE | 2018-07-15 13:09 | DS.PCM_ITS ---
<Tatyana Reaves - Last Filed: 07/15/18 13:09> Discharge Date and Diagnosis Date of Admission: 07/12/18 Date of Discharge: 07/15/18 - Primary Discharge Diagnosis Active and Suspected Problems 1. Syncope, suspect secondary to orthostatic changes associated with illness as a result of acute influenza A virus 2. Acute influenza A 3. CAD status post stents to RCA and LAD in 2013 at [facility] [place] 4. Chronic COPD 5. Type 2 diabetes mellitus 6. YAIMA on Chronic kidney disease stage III 7. Hypertension 8. Hyperlipidemia 9. Chronic gastroparesis/GERD - Secondary Discharge Diagnosis Chronic Problems Diabetes mellitus type II, uncontrolled (Chronic) COPD (chronic obstructive pulmonary disease) (Chronic) HLD (hyperlipidemia) (Chronic) Diastolic dysfunction (Chronic) Pancreatic atrophy (Chronic) HTN (hypertension) (Chronic) S/P PTCA (percutaneous transluminal coronary angioplasty) (Chronic) Gastroparesis (Chronic) GERD (gastroesophageal reflux disease) (Chronic) CAD (coronary artery disease) (Chronic) Hospital Course and Treatment Imaging Results: Diagnostic Data Brain CT 07/12/18 18:49 IMPRESSION: Chronic involutional changes of the brain. Mild opacification of the visualized maxillary and ethmoid sinuses consistent with a history of sinusitis. Electronically Signed: Johana Bonilla MD at 21:28 EDT Tel , Service support , Chest X-Ray 07/12/18 18:49 IMPRESSION: No acute cardiopulmonary process. Electronically Signed: Johana Bonilla MD at 21:29 EDT Tel , Service support , Dr. Solorzano- Cardiology Operations: None Procedures: 2-D Echocardiogram, Stress test Summary of Care Provided: The patient is a 72 year old F admitted 07/12/2018 due to syncope. 1. Syncope, suspect secondary to orthostatic changes as a result of acute viral illness-given cardiac history, cardiology consult placed. Troponin negative. Echocardiogram showed an EF of 65%, RVSP 32 mmHg. Orthostatic vitals negative. Brain CT completed due to fall with head injury secondary to syncope. Brain CT showed chronic changes. Chest x-ray unremarkable. Patient underwent nuclear stress test which was negative for ischemia. Follow-up with primary care physician in 1 week. Follow-up with cardiology in 1 week. Patient was previously to follow-up with Dr. Pittman and has not yet done so. Follow-up with Dr. Pittman or Dr. Solorzano who was consulted during this admission. If patient has further episodes of syncope, she may require 30-day event recorder to further assess for arrhythmia. 2. Acute influenza A-previously on Augmentin which has been discontinued. Continue Flonase for postnasal drip. Continue renally dose Tamiflu regimen. 3. CAD status post stents to RCA and LAD in 2013 at [facility] [place]-continue aspirin. Statin added. Not on beta-jenise. 4. Chronic COPD-no acute exacerbation. 5. Type 2 diabetes mellitus-continue home glipizide regimen. 6. YAIMA on Chronic kidney disease stage III-resolved with IV fluids. 7. Hypertension-stable, continue home lisinopril regimen. 8. Hyperlipidemia-not on statin? Lipid panel elevated. Initiated on low-dose statin. 9. Chronic gastroparesis/GERD- no current issues. Not on PPI. General: Alert, Oriented x3, Cooperative HEENT: Atraumatic, PERRLA, EOMI, Normocephalic Oral: Moist Mucosa Neck: Supple, No JVD, Negative Carotid Bruits Lungs: Clear to auscultation, Diminished Cardiovascular: Regular rate, Regular Rhythm, Normal S1, Normal S2, No murmurs Abdomen: Bowel Sounds Present, Soft, Non Tender, Non-Distended Extremities: No clubbing, No cyanosis, No edema, Capillary Refill Less than 3 Seconds Skin: No rashes, No breakdown Musculoskeletal: No Tenderness to Palpation of Joints or Extremities Neurological: Cranial nerves II-XII grossly intact, Neuro grossly intact Psych/Mental Status: Normal Affect, Appropriate Patient seen and examined prior to discharge. Physical assessment as noted above. Patient is stable for discharge with follow up recommendations as noted above. This patient was seen by STAN Berrios under the supervision of Dr. Spence. - Physical Exam Vital Signs Temp Pulse Resp BP Pulse Ox 98.2 F 76 16 158/43 H 95 07/15/18 07:38 07/15/18 11:53 07/15/18 07:38 07/15/18 07:38 07/15/18 12:49 Oxygen Delivery Method Room Air Weight: 136 lb 7.458 oz Body Mass Index (BMI) 26.6 Finger Stick Blood Glucose 238 Intake and Output for Last 24 Hours 07/13/18 07/14/18 07/15/18 23:59 23:59 23:59 Intake Total 2461 / 2461 2767 / 2767 1343 / 1343 Balance 2461 / 2461 2767 / 2767 1343 / 1343 Microbiology Past 72 Hours 07/13/18 11:30 Respiratory Panel (PCR) - Final Mucosa - Nasopharyngeal Influenza A (Subtype H1) Laboratory Tests Past 24 Hrs 07/15/18 07/15/18 07/15/18 05:32 05:32 05:32 WBC 4.5 RBC 3.69 L Hgb 11.1 L Hct 32.5 L MCV 88.1 MCH 30.1 MCHC 34.2 RDW 12.3 RDW Differential 38.5 Plt Count 184 MPV 11.6 Immature Gran % (Auto) 0.400 Neut % (Auto) 44.8 L Lymph % (Auto) 41.6 H [place] % (Auto) 10.8 H Eos % (Auto) 1.5 Baso % (Auto) 0.9 Absolute Neuts (auto) 2.0 Absolute Lymphs (auto) 1.88 Total Counted Not Reportable Differential Comment SCANNED Reactive Lymphocytes 1+ RBC Morphology NORM C+C PT 13.9 INR 1.1 APTT 34.5 Sodium 142 Potassium 4.0 Chloride 111 H Carbon Dioxide 26.0 Anion Gap 5 BUN 15 Creatinine 0.88 Estim Creat Clear Calc 42.12 Est GFR (MDRD) Af Amer 81 Est GFR (MDRD) Non-Af 67 BUN/Creatinine Ratio 17.0 Glucose 103 Calcium 8.9 POC Glucose 07/15/18 07/15/18 07/14/18 12:08 06:37 22:52 POC Glucose 136 H 107 107 07/14/18 18:11 POC Glucose 102 Discharge Diet: Low fat/ Low Cholesterol Discharge Activity: Return to Normal Activity Call your doctor if you observe: Dizziness, Fainting spells, Chest pain Home Medications: Medications to take at Discharge Aspirin E.C. [Ecotrin] 81 mg PO DAILY@0800 12/06/13 Nitroglycerin [Nitrostat] 0.4 mg SUBLINGUAL Q5M PRN 01/01/14 Lisinopril [Zestril] 20 mg PO DAILY 02/10/15 Albuterol Sulfate [Proair Hfa] 2 puff INHALATION BID 07/12/18 Biotin 10,000 mcg PO DAILY 07/12/18 Cholecalciferol (VIT D3) [Vitamin D3] 1,000 unit PO DAILY 07/12/18 Cinnamon Bark [Cinnamon] 500 mg PO DAILY 07/12/18 Ginkgo Biloba 60 mg PO DAILY 07/12/18 Rutin/Hesp/Bioflav/C/Iclzat372 [Bioflex Tablet] 1 tab PO DAILY 07/12/18 glipiZIDE [Glucotrol] 2.5 mg PO DAILY@0730 07/12/18 Atorvastatin Calcium [Lipitor] 10 mg PO QHS #30 tablet 07/15/18 Fluticasone 0.05% [Flonase Nasal Winnie] 2 spray NASAL DAILY #1 bottle 07/15/18 Oseltamivir Phosphate [Tamiflu] 30 mg PO BID #6 capsule 07/15/18 Following Prescrptions Were Given to Patient: Atorvastatin Calcium [Lipitor] 10 mg PO QHS #30 tablet Fluticasone 0.05% [Flonase Nasal Winnie] 2 spray NASAL DAILY #1 bottle Oseltamivir Phosphate [Tamiflu] 30 mg PO BID #6 capsule Primary Care Physician: Katt Ramsay MD [Primary Care Provider] - Please follow up with your Primary Care Physician in: 1 Week Please Follow Up With: Stephen Pittman MD - Or Dr. Solorzano When: 1 Week Disposition: Home Minutes spent on discharge:: 35 Patient Condition:: Stable Medical Necessity - Tobacco Use Smoking Status: Former smoker Tobacco Use: Non-smoker Meaningful Use Info Meaningful Use Diagnoses (Choose all that apply): None applicable <Eddi Spence - Last Filed: 07/15/18 14:23> Discharge Date and Diagnosis - Secondary Discharge Diagnosis Chronic Problems Diabetes mellitus type II, uncontrolled (Chronic) COPD (chronic obstructive pulmonary disease) (Chronic) HLD (hyperlipidemia) (Chronic) Diastolic dysfunction (Chronic) Pancreatic atrophy (Chronic) HTN (hypertension) (Chronic) S/P PTCA (percutaneous transluminal coronary angioplasty) (Chronic) Gastroparesis (Chronic) GERD (gastroesophageal reflux disease) (Chronic) CAD (coronary artery disease) (Chronic) Hospital Course and Treatment Imaging Results: 07/15/18 05:55 Nuclear Stress Test - Chemical [NM] AM (NON MEDS) Summary of Care Provided: The patient is a 72 year old F [] - Physical Exam Vital Signs Temp Pulse Resp BP Pulse Ox 98.2 F 76 16 158/43 H 95 07/15/18 07:38 07/15/18 11:53 07/15/18 07:38 07/15/18 07:38 07/15/18 12:49 Oxygen Delivery Method Room Air Weight: 136 lb 7.458 oz Body Mass Index (BMI) 26.6 Finger Stick Blood Glucose 238 Intake and Output for Last 24 Hours 07/13/18 07/14/18 07/15/18 23:59 23:59 23:59 Intake Total 2461 / 2461 2767 / 2767 1343 / 1343 Balance 2461 / 2461 2767 / 2767 1343 / 1343 Microbiology Past 72 Hours 07/13/18 11:30 Respiratory Panel (PCR) - Final Mucosa - Nasopharyngeal Influenza A (Subtype H1) Laboratory Tests Past 24 Hrs 07/15/18 07/15/18 07/15/18 05:32 05:32 05:32 WBC 4.5 RBC 3.69 L Hgb 11.1 L Hct 32.5 L MCV 88.1 MCH 30.1 MCHC 34.2 RDW 12.3 RDW Differential 38.5 Plt Count 184 MPV 11.6 Immature Gran % (Auto) 0.400 Neut % (Auto) 44.8 L Lymph % (Auto) 41.6 H [place] % (Auto) 10.8 H Eos % (Auto) 1.5 Baso % (Auto) 0.9 Absolute Neuts (auto) 2.0 Absolute Lymphs (auto) 1.88 Total Counted Not Reportable Differential Comment SCANNED Reactive Lymphocytes 1+ RBC Morphology NORM C+C PT 13.9 INR 1.1 APTT 34.5 Sodium 142 Potassium 4.0 Chloride 111 H Carbon Dioxide 26.0 Anion Gap 5 BUN 15 Creatinine 0.88 Estim Creat Clear Calc 42.12 Est GFR (MDRD) Af Amer 81 Est GFR (MDRD) Non-Af 67 BUN/Creatinine Ratio 17.0 Glucose 103 Calcium 8.9 POC Glucose 07/15/18 07/15/18 07/14/18 12:08 06:37 22:52 POC Glucose 136 H 107 107 07/14/18 18:11 POC Glucose 102 Code Visit Addendum: Dr. Spence I personally examined the patient and reviewed the chart. I agree with the above. 72-year-old female presenting with near syncope/syncopal episode while at home. She was having symptoms that were compatible with orthostatic changes and she has had orthostatic issues on her previous ER evaluations. She was also evaluated first with a stress test for underlying CAD, and it was found to be normal. She is also found to be diagnosed with influenza A and was started on Tamiflu. She does feel better than when she came in though she does still have intermittent dizziness. We discussed maintaining hydration and continuing with the Tamiflu. She states that she has been having flulike symptoms on and off since about April that is the first time she tested positive for. She is to be discharged today with follow-up with her primary care physician. If she has any further episodes of syncope will likely require 30-day event monitor. OBSV E&M: 71201 Observation care discharge
== END 2018-07-15 13:00 | disposition home or self-care (01) ==
LOC: ED 22:07 → PCU 07-13 06:51
PROVIDERS: Family Medicine; Internal Medicine Cardiovascular Disease; Admitting Provider Internal Medicine; Emergency Provider Emergency Medicine; Family Provider Family Medicine; PCP Family Medicine; Referring Provider Internal Medicine; Visit Provider Family Medicine
DX: R55 Syncope and collapse (principal); J10.1 Influenza due to other identified influenza virus with other respiratory manifestations; I25.10 Atherosclerotic heart disease of native coronary artery without angina pectoris; J44.9 Chronic obstructive pulmonary disease, unspecified; E11.22 Type 2 diabetes mellitus with diabetic chronic kidney disease; N18.3 Chronic kidney disease, stage 3 (moderate); I12.9 Hypertensive chronic kidney disease with stage 1 through stage 4 chronic kidney disease, or unspecified chronic kidney disease; K21.9 Gastro-esophageal reflux disease without esophagitis; N17.9 Acute kidney failure, unspecified; E11.40 Type 2 diabetes mellitus with diabetic neuropathy, unspecified; E11.65 Type 2 diabetes mellitus with hyperglycemia; E11.43 Type 2 diabetes mellitus with diabetic autonomic (poly)neuropathy; K31.84 Gastroparesis; E78.5 Hyperlipidemia, unspecified; Z95.5 Presence of coronary angioplasty implant and graft; Z87.891 Personal history of nicotine dependence; Z79.899 Other long term (current) drug therapy; Z79.84 Long term (current) use of oral hypoglycemic drugs; Z79.82 Long term (current) use of aspirin; Z91.81 History of falling; I08.3 Combined rheumatic disorders of mitral, aortic and tricuspid valves; F41.9 Anxiety disorder, unspecified
CPT/HCPCS: 36415; 70450; 71046; 78452; 80048; 80053; 80061; 80320; 81001; 82962; 83735; 84484; 85025; 85610; 85730; 87633; 93005; 93017; 93306; 94640; 96361; 96372; 96374; 96375; 99218; 99285; A9500; J7030; A4216; G0378; G0480; J2405; J2785

== ENCOUNTER → 2018-07-29 13:04 | Outpatient (CLI) | payer MEDICARE, OTHER, SELFPAY ==
[2018-07-18 14:39] VITALS: BMI 25.5
--- NOTE | 2018-07-29 13:06 | CDU_ITS ---
Reason For Study: DIZZINESS Rt. Velocities/BP Lt. Velocities/BP Prox CCA 77.3/16.0 cm/sec. Prox CCA 86.4/13.9 cm/sec. Mid CCA 73.4/14.7 cm/sec. Mid CCA 86.5/10.8 cm/sec. Dist CCA 59.1/13.4 cm/sec. Dist CCA 57.8/8.2 cm/sec. Prox ICA 53.9/14.7 cm/sec. Prox ICA 39.9/11.3 cm/sec. Mid ICA 68.2/21.3 cm/sec. Mid ICA 68.4/19.8 cm/sec. Dist ICA 74.6/21.9 cm/sec. Dist ICA 99.2/25.4 cm/sec. Rt. ICA/CCA = 1.0. Lt. ICA/CCA = 1.1. Prox ECA 59.1/4.3 cm/sec. Prox ECA 52.5/5.6 cm/sec. Rt. Vert. 39.9/11.1 cm/sec. Lt. Vert. 48.6/16.0 cm/sec. Right Extracranial There is intimal thickening but no significant atherosclerotic plaque noted in the right common carotid artery. There is intimal thickening but no significant atherosclerotic plaque noted in the right internal carotid artery. There is heterogeneous, irregular atherosclerotic plaque noted in the right external carotid artery. Antegrade flow is noted in the right vertebral artery. Left Extracranial There is heterogeneous, smooth atherosclerotic plaque noted in the left common carotid artery. There is intimal thickening but no significant atherosclerotic plaque noted in the left internal carotid artery. There is intimal thickening but no significant atherosclerotic plaque noted in the left external carotid artery. Antegrade flow is noted in the left vertebral artery. Procedure Carotid Duplex 90742. Exam performed in department. Interpretation Summary No significant plague of the right internal carotid with <50% stenosis. Minimal plague at the proximal right external carotid with <50% stenosis No significant plague within the left internal or external carotid arteries with <50% stenosis. Patent and antegrade vertebrals bilaterally Ordering Physician: Zac Phelan Referring Physician: Zac Phelan Performed By: Claudia Watts RVT
== END ==
PROVIDERS: Family Provider Family Medicine; PCP Family Medicine; Referring Provider Nurse Practitioner Family; Visit Provider Nurse Practitioner Family
DX: R42 Dizziness and giddiness (principal)
CPT/HCPCS: 93880

== ENCOUNTER → 2018-08-07 08:36 | Outpatient (CLI) | payer MEDICARE, OTHER, SELFPAY ==
[2018-07-18 14:39] VITALS: BMI 25.5
[2018-08-07 12:40] LABS: Albumin, Serum 3.9 g/dL (3.2-5.0); BUN 26 mg/dL (7-18); BUN/Creat Ratio 24.5 RATIO (10-20); Chloride 105 mmol/L (98-107); Creatinine, Serum 1.06 mg/dL (0.55-1.02); EST Glomerular Filtration Rate 54 mL/min (>60); Est Glom Filt Rate - Afr Amer 66 mL/min (>60); Glucose 136 mg/dL (74-106); Phosphorus 3.5 mg/dL (2.5-4.9); Potassium 4.3 mmol/L (3.5-5.1); Sodium Level 140 mmol/L (136-145)
[2018-08-07 13:08] LABS: Protein, Urine (Random) 220.8 mg/dL (<11.9); Protein:Creat Ratio 1482 mg/g CRE (0-200)
== END ==
PROVIDERS: Family Provider Family Medicine; PCP Family Medicine; Visit Provider Internal Medicine Nephrology
DX: E11.22 Type 2 diabetes mellitus with diabetic chronic kidney disease (principal); N18.2 Chronic kidney disease, stage 2 (mild); E11.21 Type 2 diabetes mellitus with diabetic nephropathy
CPT/HCPCS: 36415; 80069; 82570; 84156

== ENCOUNTER → 2019-01-28 13:50 | Outpatient (CLI) | payer MEDICARE, SELFPAY ==
[2019-01-22 14:17] VITALS: BMI 26.2
[2019-01-28 16:09] LABS: AST(SGOT) 14 U/L (15-37); Alanine Aminotransfer ALT/SGPT 18 U/L (13-56); Alkaline Phosphatase 127 U/L (45-117); Anion Gap 4 (5-15); BUN 31 mg/dL (7-18); BUN/Creat Ratio 30.1 RATIO (10-20); Bilirubin, Direct 0.15 mg/dL (0.00-0.30); Calcium,Total 9.8 mg/dL (8.5-10.1); Chloride 103 mmol/L (98-107); Cholesterol 193 mg/dL (200); Creatinine, Serum 1.03 mg/dL (0.55-1.02); EST Glomerular Filtration Rate 56 mL/min (>60); Est Glom Filt Rate - Afr Amer 68 mL/min (>60); Globulin 3.4 g/dL (2.2-4.2); Glucose 120 mg/dL (74-106); High Density Lipoprotein 45 mg/dL; Microalbumin:Creatinine Ratio 477.1 mg/g CRE (<30 mg/g CRE); Potassium 4.2 mmol/L (3.5-5.1); Protein, Total 7.4 g/dL (6.4-8.2); Sodium Level 135 mmol/L (136-145); Triglycerides 249 mg/dL; Very Low Density Lipoprotein 50 mg/dL (5-40)
== END ==
PROVIDERS: Family Provider Family Medicine; PCP Family Medicine; Referring Provider Family Medicine; Visit Provider Family Medicine
DX: E11.9 Type 2 diabetes mellitus without complications (principal)
CPT/HCPCS: 36415; 80048; 80061; 80076; 82043; 82570

== ENCOUNTER → 2019-02-07 10:20 | Outpatient (CLI) | payer MEDICARE, SELFPAY ==
[2018-07-18 14:39] VITALS: BMI 25.5
[2019-01-22 14:17] VITALS: BMI 26.2
[2019-02-07 13:02] LABS: Albumin, Serum 4.2 g/dL (3.2-5.0); BUN 31 mg/dL (7-18); BUN/Creat Ratio 30.4 RATIO (10-20); Chloride 103 mmol/L (98-107); Creatinine, Serum 1.02 mg/dL (0.55-1.02); EST Glomerular Filtration Rate 57 mL/min (>60); Est Glom Filt Rate - Afr Amer 68 mL/min (>60); Glucose 140 mg/dL (74-106); Phosphorus 2.9 mg/dL (2.5-4.9); Potassium 3.8 mmol/L (3.5-5.1); Sodium Level 136 mmol/L (136-145)
[2019-02-07 13:05] LABS: Protein, Urine (Random) 84.5 mg/dL (<11.9); Protein:Creat Ratio 1588 mg/g CRE (0-200)
== END ==
PROVIDERS: Family Provider Family Medicine; PCP Family Medicine; Referring Provider Internal Medicine Nephrology; Visit Provider Internal Medicine Nephrology
DX: E11.21 Type 2 diabetes mellitus with diabetic nephropathy (principal); E11.22 Type 2 diabetes mellitus with diabetic chronic kidney disease; N18.2 Chronic kidney disease, stage 2 (mild)
CPT/HCPCS: 36415; 80069; 82570; 84156

== ENCOUNTER → 2019-03-07 13:03 | Outpatient (CLI) | payer MEDICARE, SELFPAY ==
[2019-03-07 12:36] VITALS: BMI 26.2
--- NOTE | 2019-03-07 13:05 | RAD_ITS ---
STUDY: X-RAY - RIGHT KNEE REASON FOR EXAM: Female, 73 years old. Pain, no trauma. TECHNIQUE: 4 view(s) of the knee. COMPARISON: None. FINDINGS: There is diffuse osteopenia. There is osteophytosis of the distal femur and proximal tibia, otherwise normal visualized distal femur. Normal visualized proximal tibia and fibula. There is arthrosis of the proximal tibiofibular articulation. There is no demonstrated fracture. There is severe degenerative arthrosis of the medial femorotibial compartment with severe joint space narrowing. There is mild degenerative arthrosis of the lateral femorotibial compartment. There is mild to moderate degenerative arthrosis of the patellofemoral articulation. There is mild joint effusion. There are atherosclerotic calcifications. RAD/Knee 4 or More Views IMPRESSION: Diffuse osteopenia along with degenerative disease as described above. Joint effusion. Electronically Signed: Devora Perdomo MD at 6:54 EST , Service support ,
--- NOTE | 2019-03-07 13:05 | RAD_ITS ---
STUDY: X-RAY - LEFT KNEE REASON FOR EXAM: Female, 73 years old. Pain. No history of trauma. TECHNIQUE: 4 view(s) of the knee. COMPARISON: None. FINDINGS: Normal visualized distal femur. Normal visualized proximal tibia and fibula. Normal proximal tibiofibular articulation. There is moderate degenerative arthrosis of the medial femorotibial compartment with moderate joint space narrowing. There is mild degenerative arthrosis of the lateral femorotibial compartment. There is mild degenerative arthrosis of the patellofemoral articulation. Chondrocalcinosis of the medial and lateral menisci. There are atherosclerotic calcifications. Minimal synovial thickening. RAD/Knee 4 or More Views IMPRESSION: Degenerative arthrosis. Chondrocalcinosis. Electronically Signed: Julian Ahuja, at 14:10 EST , Service support ,
== END ==
PROVIDERS: Family Provider Family Medicine; PCP Family Medicine; Referring Provider Physician Assistant Surgical; Visit Provider Physician Assistant Surgical
DX: S89.92XA Unspecified injury of left lower leg, initial encounter (principal); W19.XXXA Unspecified fall, initial encounter; M17.0 Bilateral primary osteoarthritis of knee; M11.262 Other chondrocalcinosis, left knee
CPT/HCPCS: 73564

== ENCOUNTER 2019-03-31 06:31 | Observation (INO) | payer MEDICARE, SELFPAY ==
[2019-03-07 12:36] VITALS: BMI 26.2
[2019-03-31] VITALS (8 sets, daily range): BP systolic 126–190; BP diastolic 77–87; PULSE 64–110; RESP 15–22; TEMP 35.5–37.4; O2SAT 89–98; BMI 27.3; BMI 28.1
--- NOTE | 2019-03-31 06:36 | ED.RN ---
Unable to place pt on monitor or place IV as pt needs to try and have BM/diarrhea.
--- NOTE | 2019-03-31 06:46 | RAD_ITS ---
STUDY: X-RAY CHEST REASON FOR EXAM: Female, 73 years old. NAUSEA, VOMITING , DIARRHEA AND CP TECHNIQUE: Single AP portable view of the chest. COMPARISON: 09/11/2018 FINDINGS: The lungs are clear and expanded. There is no demonstrated pleural abnormality. Normal size heart. Normal mediastinum and demetra. Normal visualized pulmonary arteries. Normal visualized aortic arch and descending thoracic aorta. Normal visualized thoracic spine. There is deformity of the proximal right humerus consistent with an old fracture. There is no demonstrated abnormality of the visualized soft tissue structures of the upper abdomen. RAD/Chest 1 View (Portable) IMPRESSION: No demonstrated acute cardiopulmonary process. Electronically Signed: Alexia Chiang, at 7:18 EST Tel , Service support ,
--- NOTE | 2019-03-31 06:46 | EKG12_ITS ---
Test Reason : N/V Blood Pressure : / mmHG Vent. Rate : 054 BPM Atrial Rate : 054 BPM P-R Int : 136 ms QRS Dur : 076 ms QT Int : 462 ms P-R-T Axes : 058 030 084 degrees QTc Int : 438 ms Sinus bradycardia with marked sinus arrhythmia Otherwise normal ECG Confirmed by TERI NICOLE, BRUCE ([id number]), film editor FELICIA YIN ([id number]) on 04/02/2019 11:54:56 AM Referred By: TRENTON Confirmed By:BRUCE WILLIAMSON MD
--- NOTE | 2019-03-31 06:48 | ED.VISSUMM ---
- ER Visit Summary Date of Service: 03/31/19 Chief Complaint: Nausea, vomiting and diarrhea History of Present Illness: The patient is a 73 F days around 1:00 this morning started having nausea, vomiting diarrhea. Complaining epigastric abdominal pain lower chest pain after vomiting. She was not having any chest pain prior to vomiting. She denies any melena. She denies hematemesis. She denies any fever or chills. No dysuria. Patient does have a history of CAD, [place], 2 cardiac stents, diabetes, gastroparesis, renal insufficiency stage II. She is had a prior cholecystectomy. Physical Examination: Older female vital signs are stable she is afebrile. HEENT exam unremarkable. No droop. Pupils round react to light. Dry mucous membranes. Neck nontender. No lymphadenopathy. Lungs clear to auscultation bilaterally. Heart regular rhythm no murmur. Abdomen is soft. Nondistended. Normal bowel sounds. She complains epigastric discomfort but really is not reproducible pain. The right upper right lower quadrant unremarkable. No signs of obstruction. No hernias or masses. No pulsatile mass. Patient is moving all 4 extremities. Calves are nontender without edema. Neurologically she is awake and alert with no focal motor deficits. Back nontender. Test Results: EKG sinus bradycardia without signs of [place] or ischemia. Portable 1 view chest x-ray shows no acute abnormality with a normal cardiac silhouette. Read both by myself and the radiologist. Emergency Department Course and Treatment: Elderly female with nausea, vomiting and diarrhea. I think this is secondary to most likely a viral syndrome such as viral gastroenteritis. She has a benign exam but has other complaints for that reason I will do screening labs. Patient be started on IV fluids and IV Zofran. Patient will be turned over to the morning physician due to her work-up is just being initiated and will not be done within the next hour or so. Patient currently is resting comfortably at 07 34 and the morning physician will check her labs and reevaluate the patient. Treatment Plan: Plenty of fluids and rest. Zofran as needed for nausea. Follow-up with your doctor. Return if worse. Disposition: Disposition to be determined by the physician excepting turnover. Impression: Acute nausea, vomiting and diarrhea secondary to viral gastroenteritis Dehydration History of CAD with stents History of diabetes History of renal insufficiency This note was generated with [employer] dictation software. It may contain incorrect words, spelling, and punctuation that were not noted in review of the chart prior to signing ED Disposition - Plan for ED Patient: Referrals: Katt Ramsay MD [Primary Care Provider] -
[2019-03-31] MEDS: 0.9% Normal Saline 1,000 ML 1000 ML IV (07:18)
[2019-03-31 07:34] LABS: Absolute Neutrophil Count 19.9 X10^3/uL (2.0-7.7); Basophil# 0.11 X10^3/uL; Basophil% 0.5 % (0-1); Eosinophil# 0.04 X10^3/uL; Eosinophils% 0.2 % (0-5); Hematocrit 35.8 % (37-47); Hemoglobin 12.4 g/dL (12.0-15.0); Lymphocyte % 2.8 % (19-41); Mean Corp Hgb Conc 34.6 g/dL (32-36); Mean Corpuscular Hgb 31.2 pg (27.0-32.0); Mean Corpuscular Volume 89.9 fL (81-99); Monocyte# 0.43 X10^3/uL; NRBC Flagged by Analyzer 0 % (0-5); Neutrophil # 19.91 X10^3/uL (2.7-7.7); Neutrophil % 93.8 % (47-70); POSITIVE DIFFERENTIAL YES; Platelet Count 265 K/mm3 (150-450); RBC Distribution Width SD 39.3 fl (35.1-43.9); Red Blood Count 3.98 M/mm3 (4.2-5.4); White Blood Count 21.2 K/mm3 (4.4-11.0)
[2019-03-31 07:36] LABS: Differential Indicated SCAN CRITERIA MET
[2019-03-31] MEDS: Ondansetron 4 MG/2 ML Vial IV ×3 (07:40→14:47)
[2019-03-31 07:45] LABS: AST(SGOT) 27 U/L (15-37); Alanine Aminotransfer ALT/SGPT 22 U/L (13-56); Alkaline Phosphatase 113 U/L (45-117); Anion Gap 8 (5-15); BUN 33 mg/dL (7-18); Bilirubin, Direct 0.09 mg/dL (0.00-0.30); Calcium,Total 9.6 mg/dL (8.5-10.1); Chloride 104 mmol/L (98-107); Creatinine, Serum 1.32 mg/dL (0.55-1.02); EST Glomerular Filtration Rate 42 mL/min (>60); Est Glom Filt Rate - Afr Amer 51 mL/min (>60); Estimated Creatinine Clearance 27.67 ml/min; Globulin 3.7 g/dL (2.2-4.2); Glucose 391 mg/dL (74-106); Lipase 349 U/L (73-393); Potassium 4.6 mmol/L (3.5-5.1); Protein, Total 7.7 g/dL (6.4-8.2); Sodium Level 138 mmol/L (136-145)
--- NOTE | 2019-03-31 08:04 | CT_ITS ---
STUDY: CT ABDOMEN AND PELVIS WITHOUT CONTRAST REASON FOR EXAM: Female, 73 years old. Nausea and vomiting. Elevated white cell count. RADIATION DOSAGE (If Supplied By Facility): CTDIvol = ( 7.44 ) mGy, DLP = ( 469.97 ) mGycm TECHNIQUE: Transaxial images were obtained from the dome of the diaphragm to the symphysis pubis without oral contrast, and without intravenous contrast. Sagittal and coronal images were reconstructed. Individualized dose optimization techniques were used for this CT. COMPARISON: Comparison is made with prior study dated September 21, 2016. FINDINGS: Minimal degree of increased linear markings at the lung bases suggest some mild linear atelectasis and/or scarring. Coronary artery calcification. Normal liver. The patient is status post cholecystectomy. Normal spleen. Normal pancreas. Normal bilateral adrenal glands. Normal right kidney. Normal left kidney. There is a small hiatal hernia. Normal small intestine. There are multiple colonic diverticula consistent with diverticulosis. The appendix is visualized and appears normal. There is diffuse atherosclerotic calcification of the abdominal aorta and its major visceral branches., without a demonstrated aneurysm. Normal inferior vena cava. There is borderline retroperitoneal lymphadenopathy with enlarged nodes no greater than 10mm in the short axis diameter. Normal urinary bladder. Small benign-appearing bilateral inguinal lymph nodes. There is a small umbilical hernia containing fat. Disc space narrowing, spondylosis and subchondral sclerosis at the L2-L3 level. CT/Abdomen/Pelvis without Cont IMPRESSION: Scattered sigmoid diverticulosis. The patient is status post cholecystectomy. Electronically Signed: Julian Ahuja, at 10:22 EST , Service support ,
[2019-03-31 09:15] LABS: Mucous, Urine 0 SEEN /hpf (<or=2+); Squamous Epithelial Cells - UA 0 SEEN /hpf (5-10); White Blood Cells 0 SEEN /hpf (0-5)
[2019-03-31 09:23] LABS: Color, Urine Yellow (Yellow); Glucose, Dipstick 1000 mg/dl (Normal); Ketone-Dipstick 50 mg/dl (Negative); Leukocyte Esterase-Dipstick Negative /ul (Negative); Nitrite-Dipstick Negative (Negative); Occult Blood-Urine 10 /ul (Negative); Protein-Dipstick 100 mg/dl (Negative); Urine Bilirubin Dipstick Negative (Negative); Urine Clarity Clear (Clear); Urine Urobilinogen Normal (Normal); Urine pH 6.5 (5.0 - 8.0)
[2019-03-31 09:29] LABS: Bacteria RARE /hpf (None Seen); Red Blood Cells-Urine 0-5 SEEN /hpf (0-5)
--- NOTE | 2019-03-31 10:22 | EKG12_ITS ---
Test Reason : CP REPEAT Blood Pressure : / mmHG Vent. Rate : 069 BPM Atrial Rate : 069 BPM P-R Int : 152 ms QRS Dur : 078 ms QT Int : 414 ms P-R-T Axes : 056 034 051 degrees QTc Int : 443 ms Sinus rhythm with marked sinus arrhythmia Otherwise normal ECG Confirmed by TERI NICOLE, BRUCE ([id number]), video editor FELICIA YIN ([id number]) on 04/02/2019 11:54:44 AM Referred By: ROD Confirmed By:BRUCE WILLIAMSON MD
[2019-03-31] MEDS: morphine 8 MG/ML Syringe IV (10:28)
[2019-03-31 11:41] LABS: Lactic Acid 3.2 mmol/L (0.4-1.9)
--- NOTE | 2019-03-31 11:55 | NURSING ---
DR ZULUAGA FOR ER DOC
[2019-03-31] MEDS: proMETHazine 25 MG/ML Syringe 12.5 MG IV (12:45)
[2019-03-31] MEDS: metroNIDAZOLE 500 MG/100 ML BAG 100 MG IV (12:55)
--- NOTE | 2019-03-31 12:55 | NURSING ---
DR ZULUAGA 314 VIRAL GASTROENTERITIS
[2019-03-31] MEDS: Ciprofloxacin 400 MG/200 ML BAG 200 MG IV (12:56)
--- NOTE | 2019-03-31 14:21 | HP.PCM_ITS ---
Problem List (1) Severe sepsis Status: Acute (2) Gastroenteritis Status: Acute (3) Gastroparesis Status: Chronic (4) GERD (gastroesophageal reflux disease) Status: Chronic (5) Essential hypertension Status: Chronic (6) Diabetes mellitus type II, uncontrolled Status: Chronic (7) COPD (chronic obstructive pulmonary disease) Status: Chronic (8) HLD (hyperlipidemia) Status: Chronic Qualifiers: History of Present Illness Date of Admission: 03/31/19 Chief Complaint: abd pain The patient is a 73 year old F with past medical history of type 2 diabetes with gastroparesis, CAD with prior stents, COPD, hypertension, hyperlipidemia, who presented to the emergency room with complaints of abdominal pain, nausea, vomiting. The patient was in her normal state of health when she went to bed last night. She woke up this morning at about 1:00 AM with abdominal pain. She went to the bathroom and started having vomiting as well as diarrhea. She denies any blood or any black in her vomit or stool. This continued throughout the day. She is also having chills off and on. Also this week she has had significant acid reflux and has been taking Tums and another [id number] medication that she cannot remember at this time. In addition to her abdominal pain she has developed chest pain that is sharp pain radiating across her chest bilaterally. No shortness of breath, dizziness, lightheadedness. She feels very dehydrated. She has not been able to keep anything down. She denies sick contacts. She did eat at [employer] yesterday including coleslaw, chicken, mashed potatoes. She denies any other restaurants, or change in diet. She is not on well water, she has not traveled recently, and she has not had any contact with farm animals. [] Past Medical History Past Medical History (Chronic Problems): Chronic Problems (Last Updated 03/07/19 @ 12:35 by Candis Ocampo) Gastroparesis (Chronic) GERD (gastroesophageal reflux disease) (Chronic) Presence of stent in coronary artery (Chronic ~2013) 2.25 X 23 CLEMENT to mid LAD, 2.75 X 23 CLEMENT to Proximal RCA @ [facility] 2013 Atherosclerotic heart disease of [place] coronary artery without angina pectoris (Chronic) Dizziness (Chronic) Essential hypertension (Chronic) Diabetes mellitus type II, uncontrolled (Chronic) COPD (chronic obstructive pulmonary disease) (Chronic) HLD (hyperlipidemia) (Chronic) Diastolic dysfunction (Chronic) Medical History: Medical History (Last Updated 03/07/19 @ 12:35 by Candis Ocampo) Presence of stent in coronary artery (Chronic) Onset Date: ~2013 Z95.5 2.25 X 23 CLEMENT to mid LAD, 2.75 X 23 CLEMENT to Proximal RCA @ [facility] 2014 Old myocardial infarction (Acute) I25.2 Atherosclerotic heart disease of [place] coronary artery without angina pectoris (Chronic) I25.10 Essential hypertension (Chronic) I10 Syncope (Resolved) R55 Diabetes mellitus type II, uncontrolled (Chronic) E11.65 COPD (chronic obstructive pulmonary disease) (Chronic) J44.9 HLD (hyperlipidemia) (Chronic) E78.5 Diastolic dysfunction (Chronic) I51.9 Arthritis M19.90 Difficulty balancing R29.818 Heart disease I51.9 Kidney disease N28.9 Knee pain M25.569 Gastroparesis K31.84 Pancreatic atrophy K86.89 ARF (acute renal failure) GERD (gastroesophageal reflux disease) (Resolved) K21.9 Intractable nausea and vomiting (Resolved) R11.2 NSTEMI (non-ST elevated myocardial infarction) Onset Date: 12/03/13 I21.4 Dehydration (Inactive) E86.0 Allergies benzonatate [From Tessalon Perles] Allergy (Verified 03/31/19 06:36) lip, tongue swelling omeprazole [From Prilosec] Allergy (Verified 03/31/19 06:36) knee swelling and burning omeprazole magnesium [From Prilosec] Allergy (Verified 03/31/19 06:36) Other Home Medications: Ambulatory Orders Medication Instructions Recorded Nitroglycerin (INPATIENT USE) 0.4 mg SUBLINGUAL Q5M PRN 01/01/14 [Nitrostat] Lisinopril [Zestril] 20 mg PO DAILY 02/10/15 Biotin 10,000 mcg PO DAILY 07/12/18 Cholecalciferol (VIT D3) [Vitamin 1,000 unit PO DAILY 07/12/18 D3] aspirin 81 mg tablet,delayed 81 mg PO DAILY@0800 PRN 07/18/18 release cinnamon bark 500 mg capsule 500 mg PO DAILY PRN 01/22/19 Glipizide [Glipizide ER] 2.5 mg PO DAILY 03/31/19 Surgical History: Surgical History (Last Reviewed 03/07/19 @ 12:36 by Candis Ocampo) Presence of coronary angioplasty implant and graft Onset Date: ~2013 Z95.5 2.25 X 23 CLEMENT to mid LAD, 2.75 X 23 CLEMENT to Proximal RCA @ [facility] 2014 History of cataract extraction Z98.49 History of section Z98.891 History of cholecystectomy Onset Date: ~2013 Z90.49 History of tonsillectomy Z90.89 Surgical History: angioplasty, - - percutaneous coronary artery intervention with placement 2 stents, cholecystectomy- laparoscopic, , T+A, R cataract. Psychiatric History: Anxiety [employer] History: No pertinent [employer] history Lives: Spouse/ Significant Other Smoking Status: Former smoker Tobacco Use: Non-smoker Alcohol: None Drugs: None - *Family History Maternal Family History: Family History (Last Reviewed 03/07/19 @ 12:36 by Candis Ocampo) Father Myocardial infarction Sister CAD (coronary artery disease) Brother CAD (coronary artery disease) Sister Sudden cardiac , Onset Age: 49 History Items: COPD, Heart Disease, Hypertension Paternal Family History: Family History (Last Reviewed 03/07/19 @ 12:36 by Candis Ocampo) Father Myocardial infarction Sister CAD (coronary artery disease) Brother CAD (coronary artery disease) Sister Sudden cardiac , Onset Age: 49 History Items: Heart Disease, Hypertension Review of Systems Constitutional: Denies: Chills, Fever, Weight Change HEENT: Denies: Head Aches, Sinus Congestion, Sinus Drainage Cardiovascular: Denies: Chest Pain, Palpitations Respiratory: Denies: Cough, Shortness of breath at rest, Sputum production Gastrointestinal: Denies: Abdominal Pain, Nausea, Vomiting Genitourinary: Denies: Dysuria Musculoskeletal: Denies: Joint Pain, Joint Tenderness Skin: Denies: Rash, Wounds Neurological: Denies: Numbness, Tingling, Focal weakness Psychiatric: Denies: Anxiety, Depression, Homicidal Ideations, Suicidal Ideations Hematologic/ Lymphatic: Denies: Easy Bruising, Easy Bleeding VTE Information - Inpt Only VTE Present on Admission: No VTE Mechan Device Prophylaxis: None VTE Pharm Prophylaxis ordered?: Yes Patient Problems: Active and Suspected Problems (Last Updated 03/07/19 @ 12:35 by Candis Ocampo) Severe sepsis (Acute) Gastroenteritis (Acute) - Physical Exam Vitals/I&O's: Vital Signs Temp Pulse Resp BP Pulse Ox 96 F L 76 20 H 171/87 H 94 03/31/19 12:06 03/31/19 12:06 03/31/19 12:06 03/31/19 12:06 03/31/19 12:05 Oxygen Delivery Method Room Air Weight: 139 lb 12.369 oz Body Mass Index (BMI) 27.3 Finger Stick Blood Glucose 238 Intake and Output for Last 24 Hours 03/29/19 03/30/19 03/31/19 23:59 23:59 23:59 Intake Total 1500 / 1500 Balance 1500 / 1500 General: Alert, Oriented x3, Cooperative HEENT: Atraumatic, PERRLA, EOMI, Normocephalic Neck: Supple, No JVD, Negative Carotid Bruits Lungs: Clear to auscultation, Normal air movement Cardiovascular: Regular rate, No murmurs Abdomen: Bowel Sounds Present, Guarding, Tender - diffusely Extremities: No edema, Capillary Refill Less than 3 Seconds Skin: No rashes, No breakdown Musculoskeletal: No Tenderness to Palpation of Joints or Extremities Neurological: Cranial nerves II-XII grossly intact Psych/Mental Status: Normal Affect, Appropriate, Alert and oriented to time, place, person, mood and affect Laboratory Results 03/31/19 07:13: Sodium 138, Potassium 4.6, Chloride 104, Carbon Dioxide 26.0, Anion Gap 8, BUN 33 H, Creatinine 1.32 H, Estim Creat Clear Calc 27.67, Est GFR (MDRD) Af Amer 51 L, Est GFR (MDRD) Non-Af 42 L, BUN/Creatinine Ratio 25.0 H, Glucose 391 H, Calcium 9.6, Total Bilirubin 0.60, Direct Bilirubin 0.09, AST 27, ALT 22, Alkaline Phosphatase 113, Troponin I < 0.015, Total Protein 7.7, Albumin 4.0, Globulin 3.7, Lipase 349 03/31/19 07:30: WBC 21.2 H, RBC 3.98 L, Hgb 12.4, Hct 35.8 L, MCV 89.9, MCH 31.2, MCHC 34.6, RDW Std Deviation 39.3, RDW Coeff of Titus 12.0, Plt Count 265, MPV 12.0, Immature Gran % (Auto) 0.700, Neut % (Auto) 93.8 H, Lymph % (Auto) 2.8 L, [place] % (Auto) 2.0, Eos % (Auto) 0.2, Baso % (Auto) 0.5, Absolute Neuts (auto) 19.9 H, Absolute Lymphs (auto) 0.60 L, Nucleated RBC % 0, Differential Comment COMMENT 03/31/19 09:11: Urine Color Yellow, Urine Clarity Clear, Urine pH 6.5, Ur Specific [place] 1.010, Urine Protein 100 H, Urine Glucose (UA) 1000 H, Urine Ketones 50 H, Urine Occult Blood 10 H, Urine Nitrite Negative, Urine Bilirubin Negative, Urine Urobilinogen Normal, Ur Leukocyte Esterase Negative, Urine RBC 0-5 SEEN, Urine WBC 0 SEEN, Ur Squamous Epith Cells 0 SEEN, Urine Bacteria RARE, Urine Mucus 0 SEEN 03/31/19 10:52: Troponin I < 0.015 03/31/19 10:52: Lactic Acid 3.2 H* Current Medications Aspirin (Ecotrin) 81 mg PO DAILY@0800 PRN PRN Reason: pain Dextrose (D50w Syringe) 0 gm IV X1 PRN; Protocol PRN Reason: Hypoglycemia Glucagon () 1 mg IM .X1 PRN PRN Reason: Hypoglycemia Heparin Sodium (Porcine) (Heparin Na) 5,000 unit SC Q12 [facility] Sodium Chloride () 1,000 mls @ 150 mls/hr IV .Q6H40M [facility] Insulin Human Lispro (Humalog Kwikpen (Bkc)) 0 unit SC Q6 [facility]; Protocol Lisinopril (Zestril) 20 mg PO DAILY [facility] Morphine Sulfate () 4 mg IV Q4H PRN PRN PRN Reason: pain Ondansetron HCl (Zofran) 4 mg IV Q6H PRN PRN PRN Reason: NAUSEA/VOMITING Sodium Chloride () 10 - 40 ml IV UD PRN PRN Reason: SALINE FLUSH Assessment/Plan All Active Problems (Last Updated 03/07/19 @ 12:35 by Candis Ocampo) Severe sepsis (Acute) Gastroenteritis (Acute) Bilateral primary osteoarthritis of knee (Acute) Contusion of knee, right (Acute) Contusion of knee, left (Acute) Left knee injury (Acute) Old myocardial infarction (Acute) Syncope (Resolved) GERD (gastroesophageal reflux disease) (Resolved) H. pylori infection (Resolved) Hypokalemia (Resolved) Hypomagnesemia (Resolved) Intractable nausea and vomiting (Resolved) UTI (lower urinary tract infection) (Resolved) 1. Acute severe sepsis 2/2 gastroenteritis - check enteric panel. + leukcoytosis, temp 96F, lactic acidosis. CT abdomen negative. Lipase negative. BMP with dehydration. No well water, no recent travel, 1 recent restaurant [employer] did eat coleslaw. No sick contacts. Enteric panel pending. Defer further abx unless + enteric panel (received cipro/flagyl in ER). For now, supportive care, clear liquid diet. 2. Chest pain - likely 2/2 frequent bouts of nausea and vomiting. Also has severe GERD this past week. EKG negative, trop neg x2. repeat x1. 3. GERD - as above, more severe this past week. Pepcid IV BID. allergic to PPIs. 4. Hx gastroparesis (2/2 diabetes) - follows dr. argueta 5. T2DM - SSI 6. CAD with prior stents - at home on asa/odessa, only. Continued. 7. HTN - stable DVT ppx: heparin This patient was seen by Denilson Kauffman PA-C under the supervision of Dr. Miller.
[2019-03-31] MEDS: Morphine 4 MG/ML Syringe IV (14:46)
[2019-03-31] MEDS: 0.9% Saline Lock 10 ML Syringe IV ×2 (14:47→16:41)
[2019-03-31] MEDS: 0.9% Normal Saline 1,000 ML 150 ML IV ×2 (14:54→18:42)
[2019-03-31 14:55] LABS: Reflex Lactate? Y
[2019-03-31 15:57] LABS: Lactic Acid 2.5 mmol/L (0.4-1.9)
[2019-03-31] MEDS: Famotidine 200 MG/20 ML MDV 20 MG in 0.9% Normal Saline (Pres. free 8 ML 300 MG IV ×2 (16:41→21:57)
[2019-03-31 16:50] LABS: Bedside Glucose 257 mg/dL (70-110)
[2019-03-31] MEDS: Insulin Lispro 100 UNIT/ML INSULN.PEN SC (17:15)
[2019-03-31] MEDS: Glucerna Shake 120 ML LIQUID PO (18:41)
[2019-03-31] MEDS: Heparin Injection (Vial) 5,000 UNIT/ML VIAL 5000 UNIT SC (21:57)
[2019-03-31 22:05] LABS: Bedside Glucose 139 mg/dL (70-110)
[2019-04-01] MEDS: 0.9% Normal Saline 1,000 ML 150 ML IV ×2 (01:39→08:15)
[2019-04-01 02:50] VITALS: BP 161/79; PULSE 82; RESP 16; TEMP 37.1; O2SAT 94
[2019-04-01] MEDS: Morphine 4 MG/ML Syringe IV (03:59)
[2019-04-01 06:01] LABS: Absolute Lymphocyte Count 1.88 X10^3/uL (0.83-4.51); Absolute Neutrophil Count 9.3 X10^3/uL (2.0-7.7); Basophil# 0.04 X10^3/uL; Basophil% 0.3 % (0-1); Eosinophil# 0.04 X10^3/uL; Eosinophils% 0.3 % (0-5); Hemoglobin 9.3 g/dL (12.0-15.0); Lymphocyte # 1.88 X10^3/ul (4.0); Lymphocyte % 15.1 % (19-41); Mean Corp Hgb Conc 33.2 g/dL (32-36); Mean Corpuscular Hgb 31.1 pg (27.0-32.0); Mean Corpuscular Volume 93.6 fL (81-99); Monocyte# 1.08 X10^3/uL; Monocyte% 8.7 % (0-10); NRBC Flagged by Analyzer 0 % (0-5); Platelet Count 186 K/mm3 (150-450); RBC Distribution Width CV 12.3 % (11.6-14.6); RBC Distribution Width SD 42.4 fl (35.1-43.9); Red Blood Count 2.99 M/mm3 (4.2-5.4); White Blood Count 12.4 K/mm3 (4.4-11.0)
[2019-04-01 06:25] LABS: Anion Gap 7 (5-15); BUN 28 mg/dL (7-18); BUN/Creat Ratio 22.8 RATIO (10-20); Calcium,Total 7.5 mg/dL (8.5-10.1); Chloride 112 mmol/L (98-107); Creatinine, Serum 1.23 mg/dL (0.55-1.02); EST Glomerular Filtration Rate 46 mL/min (>60); Est Glom Filt Rate - Afr Amer 55 mL/min (>60); Estimated Creatinine Clearance 41.24 ml/min; Glucose 100 mg/dL (74-106); Potassium 3.5 mmol/L (3.5-5.1); Sodium Level 142 mmol/L (136-145)
[2019-04-01 06:40] LABS: Bedside Glucose 91 mg/dL (70-110)
[2019-04-01 09:23] VITALS: BP 134/72; PULSE 74; RESP 18; TEMP 36.8; O2SAT 92
[2019-04-01] MEDS: Famotidine 200 MG/20 ML MDV 20 MG in 0.9% Normal Saline (Pres. free 8 ML 300 MG IV (09:38)
[2019-04-01] MEDS: Lisinopril 20 MG Tablet PO (09:38)
[2019-04-01] MEDS: Heparin Injection (Vial) 5,000 UNIT/ML VIAL 5000 UNIT SC (09:39)
--- NOTE | 2019-04-01 10:55 | PCM.DC ---
- Discharge Diagnoses Current Active Problems: Current Active and Chronic Problems (Last Updated 03/07/19 @ 12:35 by Candis Ocampo) Severe sepsis (Acute) Gastroenteritis (Acute) Gastroparesis (Chronic) GERD (gastroesophageal reflux disease) (Chronic) You will use the following diet at home:: Calorie/Carbohydrate Controlled (specify 1200, 1400, etc) - 1800 rochelle / day, Cardiac Your food should be the consistency of: Regular Your liquids should be the consistency of: Regular/Thin Discharge Activity: Return to Normal Activity Allergies/Adverse Reactions: Allergies benzonatate [From Tessalon Perles] Allergy (Verified 03/31/19 06:36) lip, tongue swelling omeprazole [From Prilosec] Adverse Reaction (Verified 03/31/19 14:24) knee swelling and burning omeprazole magnesium [From Prilosec] Adverse Reaction (Verified 03/31/19 14:24) knee swelling and burning Medications to take at Discharge Nitroglycerin (INPATIENT USE) [Nitrostat] 0.4 mg SUBLINGUAL Q5M PRN 01/01/14 Lisinopril [Zestril] 20 mg PO DAILY 02/10/15 Biotin 10,000 mcg PO DAILY 07/12/18 Cholecalciferol (VIT D3) [Vitamin D3] 1,000 unit PO DAILY 07/12/18 aspirin 81 mg tablet,delayed release 81 mg PO DAILY@0800 PRN 07/18/18 cinnamon bark 500 mg capsule 500 mg PO DAILY PRN 01/22/19 Glipizide [Glipizide ER] 2.5 mg PO DAILY 03/31/19 Ondansetron HCl [Zofran] 4 mg PO Q6H PRN PRN #16 tab 04/01/19 The following prescriptions were given: Ondansetron HCl [Zofran] 4 mg PO Q6H PRN PRN #16 tab PRN Reason: Nausea Transmission Status: Pending to [facility]/pharmacy #[id number] Primary Care Physician: Katt Ramsay MD [Primary Care Provider] - Please follow up with your Primary Care Physician in: 1-2 weeks Test Results: Test results from this visit will be discussed in further detail at your follow-up appointment, if applicable. Proposed Discharge Date: 04/01/19
[2019-04-01 11:30] LABS: Bedside Glucose 83 mg/dL (70-110)
--- NOTE | 2019-04-01 12:16 | PCM.DC.SUM ---
Discharge Date and Diagnosis - Problem List Patient Problems: Active and Suspected Problems (Last Updated 03/07/19 @ 12:35 by Candis Ocampo) Severe sepsis (Acute) Gastroenteritis (Acute) Date of Admission: 03/31/19 Date of Discharge: 04/01/19 - Primary Discharge Diagnosis Active and Suspected Problems (Last Updated 03/07/19 @ 12:35 by Candis Ocampo) Severe sepsis 2/2 Viral Gastroenteritis GERD Gastroparesis secondary to type 2 diabetes Hypertension COPD, no acute exacerbation - Secondary Discharge Diagnosis Chronic Problems (Last Updated 03/07/19 @ 12:35 by Candis Ocampo) Gastroparesis (Chronic) GERD (gastroesophageal reflux disease) (Chronic) Presence of stent in coronary artery (Chronic ~2013) 2.25 X 23 CLEMENT to mid LAD, 2.75 X 23 CLEMENT to Proximal RCA @ [facility] 2013 Atherosclerotic heart disease of [place] coronary artery without angina pectoris (Chronic) Dizziness (Chronic) Essential hypertension (Chronic) Diabetes mellitus type II, uncontrolled (Chronic) COPD (chronic obstructive pulmonary disease) (Chronic) HLD (hyperlipidemia) (Chronic) Diastolic dysfunction (Chronic) Hospital Course and Treatment Imaging Results: RAD/Chest 1 View (Portable) IMPRESSION: No demonstrated acute cardiopulmonary process. CT/Abdomen/Pelvis without Cont IMPRESSION: Scattered sigmoid diverticulosis. The patient is status post cholecystectomy. Operations: None Procedures: None Summary of Care Provided: Hospital Course: The patient is a 73 year old F with past medical history of type 2 diabetes with gastroparesis, otherwise as above who presented to the emergency room with complaints of sudden onset of severe nausea, vomiting, and abdominal pain. The patient was doing fine the day prior to presentation. She woke up at approximately 1:00 in the morning and started having nausea vomiting, diarrhea, severe abdominal cramping pain diffusely throughout her abdomen. She presented to the emergency room and appeared to have lab work consistent with severe sepsis with elevated lactic acid, leukocytosis, hypothermia, tachypnea, later tachycardia. She was felt to have viral gastroenteritis. She was treated with supportive care. She had no further bowel activity and no vomiting after she was admitted. The following morning her abdominal pain was completely resolved, diarrhea was completely resolved, and she had no vomiting, however she did have some ongoing nausea. The patient's diet was advanced as she tolerated this well. She was discharged home in stable condition. She was prescribed Zofran for ongoing nausea. She will need to follow-up with her PCP in 1 to 2 weeks. This patient was seen by Denilson Kauffman PA-C under the supervision of Doctor Angela. [] Patient Problems: Active and Suspected Problems (Last Updated 03/07/19 @ 12:35 by Candis Ocampo) Severe sepsis (Acute) Gastroenteritis (Acute) - Physical Exam Vitals/I&O's: Vital Signs Temp Pulse Resp BP Pulse Ox 98.2 F 74 18 134/72 H 92 04/01/19 09:23 04/01/19 09:23 04/01/19 09:23 04/01/19 09:23 04/01/19 09:23 Oxygen Flow Rate (L/min) 2 Oxygen Delivery Method Room Air Weight: 139 lb 4.8 oz Body Mass Index (BMI) 28.1 Finger Stick Blood Glucose 238 Intake and Output for Last 24 Hours 03/30/19 03/31/19 04/01/19 23:59 23:59 23:59 Intake Total 3710 / 3710 1989 Output Total 950 / 950 300 / 300 Balance 2760 / 2760 1690 / 1690 General: Alert, Oriented x3, Cooperative HEENT: Atraumatic, PERRLA, EOMI, Normocephalic Neck: Supple, No JVD, Negative Carotid Bruits Lungs: Clear to auscultation, Normal air movement Cardiovascular: Regular rate, No murmurs Abdomen: Bowel Sounds Present, Soft, Non Tender Extremities: No edema, Capillary Refill Less than 3 Seconds Skin: No rashes, No breakdown Musculoskeletal: No Tenderness to Palpation of Joints or Extremities Neurological: Cranial nerves II-XII grossly intact Psych/Mental Status: Normal Affect, Appropriate, Alert and oriented to time, place, person, mood and affect Microbiology Past 72 Hours 03/31/19 09:11 Urine Catheter - Catheter 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 Laboratory Results 03/31/19 15:15: Lactic Acid 2.5 H* 03/31/19 16:40: POC Glucose 257 H 03/31/19 21:55: POC Glucose 139 H 04/01/19 05:38: WBC 12.4 H, RBC 2.99 L, Hgb 9.3 L, Hct 28.0 L, MCV 93.6, MCH 31.1, MCHC 33.2, RDW Std Deviation 42.4, RDW Coeff of [place]itus 12.3, Plt Count 186, MPV 12.0, Immature Gran % (Auto) 0.600, Neut % (Auto) 75.0 H, Lymph % (Auto) 15.1 L, [place] % (Auto) 8.7, Eos % (Auto) 0.3, Baso % (Auto) 0.3, Absolute Neuts (auto) 9.3 H, Absolute Lymphs (auto) 1.88, Nucleated RBC % 0 04/01/19 05:38: Sodium 142, Potassium 3.5, Chloride 112 H, Carbon Dioxide 23.0, Anion Gap 7, BUN 28 H, Creatinine 1.23 H, Estim Creat Clear Calc 41.24, Est GFR (MDRD) Af Amer 55 L, Est GFR (MDRD) Non-Af 46 L, BUN/Creatinine Ratio 22.8 H, Glucose 100, Calcium 7.5 L 04/01/19 06:34: POC Glucose 91 04/01/19 11:21: POC Glucose 83 Current Medications Acetaminophen (Tylenol) 650 mg PO Q6H PRN PRN PRN Reason: Pain Score 1-5/10 Aspirin (Ecotrin) 81 mg PO DAILY@0800 PRN PRN Reason: pain Glucagon () 1 mg IM .X1 PRN PRN Reason: Hypoglycemia Heparin Sodium (Porcine) (Heparin Na) 5,000 unit SC Q12 [facility] Last Admin: 04/01/19 09:39 Dose: 5,000 unit Documented by: Sodium Chloride () 1,000 mls @ 150 mls/hr IV .Q6H40M [facility] Last Admin: 04/01/19 08:15 Dose: 150 mls/hr Documented by: Famotidine 20 mg/ Sodium (Chloride) 10 mls @ 300 mls/hr IV Q12 [facility] Last Admin: 04/01/19 09:38 Dose: 300 mls/hr Documented by: Dextrose (Dextrose 10%-Water) 250 mls @ 999 mls/hr IV X1 PRN; Protocol PRN Reason: HYPOGLYCEMIA Insulin Human Lispro (Humalog Kwikpen (Bkc)) 0 unit SC ACHS [facility]; Protocol Last Admin: 04/01/19 12:08 Dose: Not Given Documented by: Lisinopril (Zestril) 20 mg PO DAILY [facility] Last Admin: 04/01/19 09:38 Dose: 20 mg Documented by: Nutritional Formula (Lactose Free) (Glucerna Shake) 120 ml PO 4X/DAY [facility] Last Admin: 04/01/19 09:14 Dose: Not Given Documented by: Ondansetron HCl (Zofran) 4 mg IV Q6H PRN PRN PRN Reason: NAUSEA/VOMITING Last Admin: 03/31/19 14:47 Dose: 4 mg Documented by: Oxycodone HCl (Oxyir) 5 mg PO Q4H PRN PRN PRN Reason: Pain Score 6-10/10 Sodium Chloride () 10 - 40 ml IV UD PRN PRN Reason: SALINE FLUSH Last Admin: 03/31/19 16:41 Dose: 10 ml Documented by: Discharge Diet: Low fat/ Low Cholesterol, 1800 Calorie Control Diet, 2000 mg Sodium Diet Discharge Activity: Return to Normal Activity Home Medications: Medications to take at Discharge Nitroglycerin (INPATIENT USE) [Nitrostat] 0.4 mg SUBLINGUAL Q5M PRN 01/01/14 Lisinopril [Zestril] 20 mg PO DAILY 02/10/15 Biotin 10,000 mcg PO DAILY 07/12/18 Cholecalciferol (VIT D3) [Vitamin D3] 1,000 unit PO DAILY 07/12/18 aspirin 81 mg tablet,delayed release 81 mg PO DAILY@0800 PRN 07/18/18 cinnamon bark 500 mg capsule 500 mg PO DAILY PRN 01/22/19 Glipizide [Glipizide ER] 2.5 mg PO DAILY 03/31/19 Ondansetron HCl [Zofran] 4 mg PO Q6H PRN PRN #16 tab 04/01/19 Following Prescrptions Were Given to Patient: Ondansetron HCl [Zofran] 4 mg PO Q6H PRN PRN #16 tab PRN Reason: Nausea Transmission Status: Received by [facility]/pharmacy #[id number] Primary Care Physician: Katt Ramsay MD [Primary Care Provider] - Please follow up with your Primary Care Physician in: 1-2 weeks Disposition: Home Minutes spent on discharge:: 35 Patient Condition:: Stable Medical Necessity - Tobacco Use Smoking Status: Former smoker Tobacco Use: Non-smoker Meaningful Use Info Meaningful Use Diagnoses (Choose all that apply): None applicable
== END 2019-04-01 13:37 | disposition home or self-care (01) ==
LOC: ED 08:14 → MS3 13:11
PROVIDERS: Emergency Medicine; Admitting Provider Internal Medicine; Emergency Provider Emergency Medicine; Family Provider Family Medicine; PCP Family Medicine; Visit Provider Internal Medicine
DX: A08.4 Viral intestinal infection, unspecified (principal); R65.20 Severe sepsis without septic shock; K31.84 Gastroparesis; E11.43 Type 2 diabetes mellitus with diabetic autonomic (poly)neuropathy; I25.10 Atherosclerotic heart disease of native coronary artery without angina pectoris; R00.1 Bradycardia, unspecified; E86.0 Dehydration; K57.30 Diverticulosis of large intestine without perforation or abscess without bleeding; K21.9 Gastro-esophageal reflux disease without esophagitis; E11.65 Type 2 diabetes mellitus with hyperglycemia; E78.5 Hyperlipidemia, unspecified; J44.9 Chronic obstructive pulmonary disease, unspecified; I10 Essential (primary) hypertension; I25.2 Old myocardial infarction; M19.90 Unspecified osteoarthritis, unspecified site; Z87.891 Personal history of nicotine dependence; Z79.899 Other long term (current) drug therapy; Z95.5 Presence of coronary angioplasty implant and graft; Z79.82 Long term (current) use of aspirin; Z79.84 Long term (current) use of oral hypoglycemic drugs
CPT/HCPCS: 36415; 71045; 74176; 80048; 80076; 81001; 82962; 83605; 83690; 84484; 85025; 87077; 87086; 87088; 87186; 93005; 96361; 96365; 96368; 96372; 96375; 96376; 97802; 99218; 99285; J7030; P9612; A4216; G0378; J0744; J2405; J3490

== ENCOUNTER → 2019-08-14 08:46 | Outpatient (CLI) | payer MEDICARE, SELFPAY ==
[2019-01-22 14:17] VITALS: BMI 26.2
[2019-07-21 15:16] VITALS: BMI 26.2
[2019-08-14 09:40] LABS: Protein:Creat Ratio 1442 mg/g CRE (0-200)
[2019-08-14 09:48] LABS: Albumin, Serum 3.8 g/dL (3.2-5.0); BUN 22 mg/dL (7-18); Calcium,Total 10.2 mg/dL (8.5-10.1); Chloride 103 mmol/L (98-107); Creatinine, Serum 1.16 mg/dL (0.55-1.02); EST Glomerular Filtration Rate 49 mL/min (>60); Est Glom Filt Rate - Afr Amer 59 mL/min (>60); Glucose 145 mg/dL (74-106); Phosphorus 2.8 mg/dL (2.5-4.9); Potassium 3.7 mmol/L (3.5-5.1); Sodium Level 140 mmol/L (136-145)
[2019-08-14 09:55] LABS: Vitamin D,25 Hydroxy 25.2 ng/mL
== END ==
LOC: LAB.FUTURE 08:50 → LAB 08-15 06:45
PROVIDERS: Family Provider Family Medicine; PCP Family Medicine; Referring Provider Internal Medicine Nephrology; Visit Provider Internal Medicine Nephrology
DX: E55.9 Vitamin D deficiency, unspecified (principal); E11.21 Type 2 diabetes mellitus with diabetic nephropathy; N18.2 Chronic kidney disease, stage 2 (mild); E11.22 Type 2 diabetes mellitus with diabetic chronic kidney disease
CPT/HCPCS: 36415; 80069; 82306; 82570; 84156

== ENCOUNTER → 2019-08-27 14:29 | Outpatient (CLI) | payer MEDICARE, SELFPAY ==
[2019-07-21 15:16] VITALS: BMI 26.2
[2019-08-27 18:03] LABS: Anion Gap 7 (5-15); BUN 26 mg/dL (7-18); Calcium,Total 10.2 mg/dL (8.5-10.1); Chloride 106 mmol/L (98-107); Creatinine, Serum 1.13 mg/dL (0.55-1.02); EST Glomerular Filtration Rate 50 mL/min (>60); Est Glom Filt Rate - Afr Amer 61 mL/min (>60); Glucose 133 mg/dL (74-106); Potassium 4.5 mmol/L (3.5-5.1); Sodium Level 139 mmol/L (136-145)
[2019-08-27 18:04] LABS: Hemoglobin A1c 7.7 % (4.2-6.3)
== END ==
PROVIDERS: PCP Family Medicine; Visit Provider Family Medicine
DX: E11.9 Type 2 diabetes mellitus without complications (principal)
CPT/HCPCS: 36415; 80048; 83036

== ENCOUNTER → 2019-09-01 14:25 | Outpatient (CLI) | payer MEDICARE, SELFPAY ==
[2019-07-21 15:16] VITALS: BMI 26.2
--- NOTE | 2019-09-01 14:28 | BI_ITS ---
MAMMOGRAPHY - BILATERAL SCREENING REASON FOR EXAM: Female, 73 years old. Routine annual screening examination. PERTINENT HISTORY: NO FM HX , PT FELL 3 WEEKS AGO ON RT LATERAL BREAST-NO BRUISE OR CURRENT PAIN TECHNIQUE: Digital bilateral breast juanpablo (3D mammographic acquisition) in the CC and MLO projections. 2-D mediolateral oblique (MLO) and craniocaudad (CC) views of both breasts were obtained. CAD: Full Field Digital Mammography with Computer Added Detection was performed. COMPARISON: None. FINDINGS: Breast Composition: There are scattered areas of fibroglandular density. There are no dominant masses or suspicious calcifications. No other significant abnormalities are identified. BI/SCREEN MAMM (CAD) W/JUANPABLO BILAT IMPRESSION: Stable bilateral screening mammogram. Yearly follow-up mammogram recommended. (A) ASSESSMENT CATEGORY: BIRADS Category 2: Benign. A letter regarding these results will be sent to the patient by the facility within 30 days. Approximately 10% of breast cancers are not detected by mammography. A normal mammogram should not delay biopsy of a clinically suspicious abnormality. [id number] Electronically Signed: Alexia Chiang, at 13:53 EDT Tel , Service support ,
== END ==
PROVIDERS: PCP Family Medicine; Referring Provider Family Medicine; Visit Provider Family Medicine
DX: Z12.31 Encounter for screening mammogram for malignant neoplasm of breast (principal)
CPT/HCPCS: 77063; 77067

== ENCOUNTER → 2020-02-23 14:10 | Outpatient (CLI) | payer MEDICARE, SELFPAY ==
[2020-02-18 10:05] VITALS: BMI 26.3
[2020-02-23 16:12] LABS: AST(SGOT) 15 U/L (15-37); Alanine Aminotransfer ALT/SGPT 20 U/L (13-56); Albumin, Serum 3.9 g/dL (3.2-5.0); Alkaline Phosphatase 126 U/L (45-117); Anion Gap 4 (5-15); BUN 30 mg/dL (7-18); BUN/Creat Ratio 26.8 RATIO (10-20); Bilirubin, Direct 0.12 mg/dL (0.00-0.30); Calcium,Total 10.5 mg/dL (8.5-10.1); Chloride 107 mmol/L (98-107); Cholesterol 236 mg/dL (200); Creatinine, Serum 1.12 mg/dL (0.55-1.02); EST Glomerular Filtration Rate 51 mL/min (>60); Est Glom Filt Rate - Afr Amer 61 mL/min (>60); Globulin 3.6 g/dL (2.2-4.2); Glucose 139 mg/dL (74-106); High Density Lipoprotein 43 mg/dL; Potassium 4.9 mmol/L (3.5-5.1); Protein, Total 7.5 g/dL (6.4-8.2); Sodium Level 139 mmol/L (136-145); Triglycerides 282 mg/dL; Very Low Density Lipoprotein 56 mg/dL (5-40)
[2020-02-23 19:14] LABS: Microalbumin:Creatinine Ratio 854.7 mg/g CRE (<30 mg/g CRE)
== END ==
PROVIDERS: PCP Family Medicine; Referring Provider Family Medicine; Visit Provider Family Medicine
DX: E11.9 Type 2 diabetes mellitus without complications (principal)
CPT/HCPCS: 36415; 80048; 80061; 80076; 82043; 82570

== ENCOUNTER → 2020-03-02 11:01 | Outpatient (CLI) | payer MEDICARE, SELFPAY ==
[2020-02-18 10:05] VITALS: BMI 26.3
--- NOTE | 2020-03-02 14:51 | STRESSREP ---
Stress Test Report Date: 03-02-2020 Procedure: Pharmacologic stress nuclear imaging study Indications: CAD; non-ST segment elevation NH; PCI: Chest discomfort Consent: Per the patient Procedure: The patient underwent pharmacologic (Regadenoson) evaluation with a peak heart rate of 93 beats per minute (63%predicted maximal heart rate) and a peak blood pressure of 140/70 mmHg. The baseline ECG demonstrated sinus rhythm. The peak pharmacologic ECG demonstrated no obvious ECG changes. There were no cardiac dysrhythmias pretest, during pharmacologic infusion, or recovery. There was no complaint of chest discomfort during pharmacologic infusion or recovery. The examination was discontinued secondary to completion of protocol. Impression: 1. Pharmacologic (Regadenoson) evaluation 2. Peak pharmacologic ECG with no obvious ECG changes. 3. There were no cardiac dysrhythmias pretest, during pharmacologic infusion, or recovery. 4. Nuclear images pending Myocardial perfusion imaging study: Technique: The patient was injected with 10.8 millicuries of technetium 99m Cardiolite and subsequently rest SPECT Cardiolite nuclear imaging was obtained in the horizontal long, vertical long, and short axis views. The patient underwent pharmacologic (Regadenoson) evaluation with a peak heart rate of 93 beats per minute (63% percent predicted maximal heart rate) and a peak blood pressure of 140/70 mmHg. The patient was injected with 33.7 millicuries of technetium 99m Cardiolite and subsequently stress SPECT Cardiolite nuclear imaging was obtained in the horizontal long, vertical long, and short axis views. A gated Cardiolite study at peak stress was obtained. Interpretation: Rest and stress SPECT Cardiolite nuclear imaging status post realignment, normalization, and attenuation correction demonstrate relative uniform tracer uptake and myocardial perfusion appearing within normal limits. There is end systolic thickening and brightening. The gated Cardiolite study demonstrates myocardial thickening and inward wall motion. The reported LVEF is 63%. Impression: 1. Rest and stress SPECT Cardiolite nuclear imaging demonstrate relative uniform tracer uptake and myocardial perfusion appearing within normal limits. 2. The gated Cardiolite study reports an LVEF of 63%. This note was generated with [employer] software. It may contain incorrect words, spelling, and punctuation that were not noted in checking the note before signing.
== END ==
PROVIDERS: PCP Family Medicine; Referring Provider Internal Medicine Cardiovascular Disease; Visit Provider Internal Medicine Cardiovascular Disease
DX: I25.10 Atherosclerotic heart disease of native coronary artery without angina pectoris (principal); Z95.5 Presence of coronary angioplasty implant and graft
CPT/HCPCS: 78452; 93017; A9500; A4216; J2785

== ENCOUNTER → 2020-04-30 09:12 | Outpatient (CLI) | payer MEDICARE, SELFPAY ==
[2020-02-18 10:05] VITALS: BMI 26.3
[2020-04-30 09:59] LABS: Protein, Urine (Random) 138.8 mg/dL (<11.9); Protein:Creat Ratio 1084 mg/g CRE (0-200)
[2020-04-30 10:27] LABS: Albumin, Serum 3.8 g/dL (3.2-5.0); BUN 33 mg/dL (7-18); Calcium,Total 10.2 mg/dL (8.5-10.1); Chloride 110 mmol/L (98-107); Creatinine, Serum 1.18 mg/dL (0.55-1.02); EST Glomerular Filtration Rate 48 mL/min (>60); Est Glom Filt Rate - Afr Amer 58 mL/min (>60); Glucose 160 mg/dL (74-106); Phosphorus 2.9 mg/dL (2.5-4.9); Potassium 4.3 mmol/L (3.5-5.1); Sodium Level 139 mmol/L (136-145)
== END ==
PROVIDERS: PCP Family Medicine; Referring Provider Internal Medicine Nephrology; Visit Provider Internal Medicine Nephrology
DX: E11.21 Type 2 diabetes mellitus with diabetic nephropathy (principal); E11.22 Type 2 diabetes mellitus with diabetic chronic kidney disease; N18.2 Chronic kidney disease, stage 2 (mild)
CPT/HCPCS: 36415; 80069; 82570; 84156

== ENCOUNTER → 2020-05-14 08:47 | Outpatient (CLI) | payer MEDICARE, SELFPAY ==
[2020-02-18 10:05] VITALS: BMI 26.3
--- NOTE | 2020-05-14 08:51 | US_ITS ---
STUDY: RENAL ULTRASOUND - COMPLETE REASON FOR EXAM: Female, 74 years old. Angiomyolipoma -- CKD III TECHNIQUE: Ultrasound evaluation of the kidneys was performed with real-time and static josé-scale imaging. COMPARISON: Comparison is made with prior study dated 05/28/2017. FINDINGS: RIGHT KIDNEY: Normal location of the right kidney, which is normal in size. The right kidney measures 10.2 cm x 6.1 cm x 4.8 cm. There is a normal cortex of the right kidney. The renal cortex measures 2.0 cm. There is a 1 cm x 1 cm x 0.5 cm renal cyst. Needs also evidence of a 9 mm x 9 mm x 5 mm slightly echogenic nodule suggestive of a small angiomyolipoma in the upper pole of the right kidney. There are no right renal calculi. There is no right hydronephrosis. DISTAL RIGHT URETER: There is non-visualization of the distal right ureter. There is no demonstrated right ureterovesical junction calculus. There is a visualized right ureteral jet. LEFT KIDNEY: Normal location of the left kidney, which is normal in size. The left kidney measures 10.1 cm x 3.4 cm x 4.4 cm. There is a normal cortex of the left kidney. The renal cortex measures 1.6 cm. There is a 1.3 cm x 1.6 cm x 1.1 cm left renal cyst. There are no left renal calculi. There is no left hydronephrosis. DISTAL LEFT URETER: There is non-visualization of the distal left ureter. There is no demonstrated left ureterovesical junction calculus. There is a visualized left ureteral jet. BLADDER: The distended urinary bladder has a volume of 37 ml. There is a normal wall thickness of the distended urinary bladder. There is no demonstrated mass within the urinary bladder. There are no demonstrated bladder calculi. US/Kidney and Bladder IMPRESSION: Stable examination. Electronically Signed: Julian Ahuja MD at 13:30 EST , Service support ,
== END ==
PROVIDERS: PCP Family Medicine; Referring Provider Internal Medicine Nephrology; Visit Provider Internal Medicine Nephrology
DX: D17.71 Benign lipomatous neoplasm of kidney (principal)
CPT/HCPCS: 76770

== ENCOUNTER 2020-09-14 10:59 | Observation (INO) | payer MEDICARE, SELFPAY ==
[2020-08-26 13:03] VITALS: BMI 27.6
--- NOTE | 2020-08-26 14:30 | RAD_ITS ---
EXAM: XR CHEST, 2 VIEWS : 1945 CLINICAL INDICATION: CP TECHNIQUE: Frontal and lateral views of the chest. This report was created using Clip report generation technology. COMPARISON: 03/31/2019 FINDINGS: LUNGS AND PLEURAL SPACES: Unremarkable. No consolidation or edema. No pneumothorax. No effusion. HEART: Unremarkable. Cardiac silhouette not enlarged. MEDIASTINUM: Central airways and mediastinal contour are unremarkable. BONES/JOINTS: Unremarkable. SOFT TISSUES: Unremarkable. RAD/Chest PA and Lateral IMPRESSION: No radiographic evidence of acute cardiopulmonary disease. at 0941 Reported and signed by: Les Silva MD Electronically Signed: Les Silva MD at 9:40 EDT Tel , Service support ,
[2020-08-26 15:06] LABS: Absolute Lymphocyte Count 1.78 X10^3/uL (0.83-4.51); Absolute Neutrophil Count 5.1 X10^3/uL (2.0-7.7); Basophil# 0.12 X10^3/uL; Basophil% 1.5 % (0-1); Eosinophil# 0.18 X10^3/uL; Eosinophils% 2.3 % (0-5); Hematocrit 35.6 % (37-47); Hemoglobin 12.2 g/dL (12.0-15.0); Lymphocyte # 1.78 X10^3/ul (0.83-4.51); Lymphocyte % 22.8 % (19-41); Mean Corp Hgb Conc 34.3 g/dL (32-36); Mean Corpuscular Hgb 30.3 pg (27.0-32.0); Mean Corpuscular Volume 88.3 fL (81-99); Mean Platelet Vol. 11.1 fl (6.2-12.0); Monocyte# 0.56 X10^3/uL; Monocyte% 7.2 % (0-10); NRBC Flagged by Analyzer 0 % (0-5); Neutrophil # 5.09 X10^3/uL (2.7-7.7); Neutrophil % 65.2 % (47-70); Platelet Count 281 K/mm3 (150-450); RBC Distribution Width CV 11.9 % (11.6-14.6); RBC Distribution Width SD 38.6 fl (35.1-43.9); Red Blood Count 4.03 M/mm3 (4.2-5.4); White Blood Count 7.8 K/mm3 (4.4-11.0)
[2020-08-26 15:15] LABS: Prothrombin Time (Protime)PT. 12.9 SECONDS (11.7-14.9)
[2020-08-26 15:29] LABS: Anion Gap 3 (5-15); BUN 31 mg/dL (7-18); BUN/Creat Ratio 26.1 RATIO (10-20); Chloride 107 mmol/L (98-107); Creatinine, Serum 1.19 mg/dL (0.55-1.02); EST Glomerular Filtration Rate 47 mL/min (>60); Est Glom Filt Rate - Afr Amer 57 mL/min (>60); Glucose 216 mg/dL (74-106); Potassium 3.9 mmol/L (3.5-5.1); Sodium Level 139 mmol/L (136-145)
[2020-09-09 11:25] VITALS: BMI 27.6
[2020-09-14] VITALS (14 sets, daily range): BP systolic 101–155; BP diastolic 54–63; PULSE 55–66; RESP 18; TEMP 36.5–36.7; O2SAT 96–100
--- NOTE | 2020-09-14 08:00 | HP.PCM_ITS ---
History and Physical Date of Admission: 09/14/20 [facility] [address] [place] [address] [phone] OFFICE VISITDate of Service: 08/26/20 MR#:[id number]: VALERIANO CROSS ARep #:[id number] Provider: CITLALY Arriaga/Sex: 74/F Loc ation:BMS.WHGStatus:Signed HPI HPI History of Present Illness Surgical H&P: Yes Details: This is a 74-year-old white female who presents for outpatient follow- up of her history of CAD with CLEMENT to mid LAD and CLEMENT to proximal RCA in June 2013, syncope in June 2018, dizziness, diastolic dysfunction, hypertension, and hyperlipidemia. She is a previous smoker who quit in 1991. Pt is having shoulder and arm pain, she notes that this is when she sleeps at night. Pt notes that when she is anxious she has chest pain. She has used NTG and this has helped with symptoms. This is unchanged since she was here last. She then states that she was not using NTG when she had a stress test. We did a stress test and this was normal. She does get SOB when she carries something. She is concerned about her carotids and her kidneys. 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: No Accompanied by: None Is patient in pain?: No Allergies benzonatate [From Tessalon Perles] Allergy (Verified 08/26/20 13:02) lip, tongue swelling omeprazole [From Prilosec] Adverse Reaction (Verified 08/26/20 13:02) knee swelling and burning omeprazole magnesium [From Prilosec] Adverse Reaction (Verified 08/26/20 13:02) knee swelling and burning Medications lisinopril 20 mg PO DAILY 02/10/15 [History Confirmed 08/26/20] glipizide 2.5 mg PO DAILY 03/31/19 [History Confirmed 08/26/20] aspirin 81 mg tablet,delayed release 81 mg PO DAILY@0800 02/18/20 [History Confirmed 08/26/20] nitroglycerin 0.4 mg sublingual tablet 0.4 mg SUBLINGUAL Q5M PRN #90 tab 02/18/20 [Rx Confirmed 08/26/20] [facility] Medical History (Updated 08/26/20 @ 13:49 by Ivonne Ball PA, PA) Arthritis Atherosclerotic heart disease of [place] coronary artery without angina pectoris COPD (chronic obstructive pulmonary disease) Diabetes mellitus type II, uncontrolled Diastolic dysfunction Essential hypertension Gastroparesis GERD (gastroesophageal reflux disease) Heart disease HLD (hyperlipidemia) Kidney disease NSTEMI (non-ST elevated myocardial infarction) (12/03/13) Old myocardial infarction Pancreatic atrophy Presence of stent in coronary artery (~2013) Syncope Surgical History History of cataract extraction History of section History of cholecystectomy (~2013) History of tonsillectomy Presence of coronary angioplasty implant and graft (~2013) Family History Father Myocardial infarction Sister CAD (coronary artery disease) CABG X 5 Brother CAD (coronary artery disease) Sister Sudden cardiac , Onset Age: 49 Social History (Updated 02/18/20 @ 11:[address] Rai Solorzano MD) Smoking Status: Former smoker how long ago did patient quit smokin years ago alcohol intake: never substance use type: does not use caffeine: No ROS Const Const: Negative for fatigue, weakness, fever(s) or headache(s) Eyes Eyes: Negative for blind spots, loss of peripheral vision or transient loss of vision ENT ENT: Negative for headache(s), dizziness, tinnitus, Nosebleed/epistaxis or balance problems Cardio Chest Pain: Yes Palpitations: Yes Edema: None Muscle aches with walking: None Resp Respiratory: Positive for SOB with activity; Negative for SOB at rest, SOB orthopnea\SOB lying down or Cough GI GI: Negative nausea, vomiting, heartburn or vomiting blood/hematemesis : Negative for hematuria Musc Musc: Positive for muscle aches/ myalgia and joint pain; Negative for muscle weakness or balance problems Neuro Neuro: Negative for dizziness, lightheadedness, near syncope, syncope, orthostatic symptoms, headache(s) or weakness Wei Hematologic/Lymphatic: Negative for easy bleeding Endo Endo: Negative for fatigue Cardiology Exam Const Appearance: cooperative, no acute distress and well developed Orientation: alert, awake and oriented x3 Head Head: normocephalic and atraumatic Mouth: moist mucous membranes Eyes General: appearance normal, both eyes and all related structures Conjunctivae: conjunctivae normal Pupils: PERRL EOM: EOM intact bilaterally Neck Neck: normal visual inspection, no lymphadenopathy and no JVD Carotids: Negative bruit Neck Mass: Negative Neck mass Chest Chest inspection: normal inspection of the chest and symmetric chest movement Auscultation: Bilateral: Clear to Auscultation Cardio Palpation: normal PMI Rate: regular rate Rhythm: regular rhythm Heart sounds: S1 normal and S2 normal; Negative rub, gallop or murmur GI GI: normal to inspection, soft, no hepatosplenomegaly and bowel sounds present; Negative tender Neuro General: patient alert, patient awake, patient oriented x3, CN's II-XI intact bilaterally and moves all extremities Extremities Pulses: Normal: Right Posterior Tibial Pulse, Left Posterior Tibial Pulse, Right Radial Pulse and Left Radial Pulse Lower Extremity Edema: None: Bilateral Psych Psychological: normal affect Assessment and Plan Assessment and Plan (1) Atherosclerotic heart disease of [place] coronary artery without angina pectoris: Status: Chronic Qualifiers: [place] vs. transplanted heart: [place] heart Qualified Code(s): I25.10 - Atherosclerotic heart disease of [place] coronary artery without angina pectoris Orders: Orders: 12 Lead EKG performed by BMS Today Left Heart Cath/COR/LV Percut Today Basic Metabolic Profile (BMP) Today Partial Thromboplast Time Today Prothrombin Time w/INR Today CBC W/Diff, Automated Today Chest PA and Lateral Today Plan - Ivonne BOUCHER PA: Pt is still having chest pain that appears to have worsened. She did have a normal stress test in 02/2020. Would like to pursue a heart cath. Pt agreeable with this Patient Instructions: Your heart cath is scheduled for , You arrive at 0800 and your procedure is 0930 Nothing to eat or drink after midnight You will need a compactor driver that day, if you have a stent you will spend the night. In the morning with a sip of water take: ASA, Lisinopril (2) Essential hypertension: Status: Chronic Plan - Ivonne BOUCHER PA: Blood pressure is well controlled on current medications, we do not recommend any changes at this time. (3) HLD (hyperlipidemia): Status: Chronic Qualifiers: Hyperlipidemia type: unspecified Qualified Code(s): E78.5 - Hyperlipidemia, unspecified Orders: Orders: CBC W/Diff, Automated Today Plan - Ivonne BOUCHER PA: Pts cholesterol is not ideal, discussed medications. She declines. Plan Details Other Orders: Orders: 12 Lead EKG performed by BMS Today R07.9 Left Heart Cath/COR/LV Percut Today R07.9 Basic Metabolic Profile (BMP) Today R07.9 Partial Thromboplast Time Today E11.65, R07.9 Prothrombin Time w/INR Today R07.9 CBC W/Diff, Automated Today R07.9 Chest PA and Lateral Today R07.9 Follow Up: 9 Months (PFM) COVID (Procedure Consent) Procedure Criteria Procedure Criteria: Yes Elective The surgeon/proceduralist and patient have discussed in detail the risk of exposure to and/or potential harm posed by the COVID-19 virus with having a surgery/procedure at this time versus the risk of delaying the surgery/procedure. It is not possible to know either the risk of delaying the surgery or procedure or chance of getting an infection with perfect accuracy, but a joint decision was made between the patient and the surgeon/proceduralist to proceed at this time with the scheduled surgery/procedure as indicated on the consent form. Coding Level of Care Code Off vis,est,level 4 Diagnoses Atherosclerotic heart disease of [place] coronary artery without angina pectoris I25.10 [place] vs. transplanted heart: [place] heart Essential hypertension I10 HLD (hyperlipidemia) E78.5 Hyperlipidemia type: unspecified Coding Level of Care Code Off vis,est,level 4 Diagnoses Atherosclerotic heart disease of [place] coronary artery without angina pectoris I25.10 [place] vs. transplanted heart: [place] heart Essential hypertension I10 HLD (hyperlipidemia) E78.5 Hyperlipidemia type: unspecified Supplemental Info Supplemental Information Stress Test Report Date: 03-02-2020 Procedure: Pharmacologic stress nuclear imaging study Indications: CAD; non-ST segment elevation OH; PCI: Chest discomfort Consent: Per the patient Procedure: The patient underwent pharmacologic (Regadenoson) evaluation with a peak heart rate of 93 beats per minute (63%predicted maximal heart rate) and a peak blood pressure of 140/70 mmHg. The baseline ECG demonstrated sinus rhythm. The peak pharmacologic ECG demonstrated no obvious ECG changes. There were no cardiac dysrhythmias pretest, during pharmacologic infusion, or recovery. There was no complaint of chest discomfort during pharmacologic infusion or recovery. The examination was discontinued secondary to completion of protocol. Impression: 1. Pharmacologic (Regadenoson) evaluation 2. Peak pharmacologic ECG with no obvious ECG changes. 3. There were no cardiac dysrhythmias pretest, during pharmacologic infusion, or recovery. 4. Nuclear images pending Myocardial perfusion imaging study: Technique: The patient was injected with 10.8 millicuries of technetium 99m Cardiolite and subsequently rest SPECT Cardiolite nuclear imaging was obtained in the horizontal long, vertical long, and short axis views. The patient underwent pharmacologic (Regadenoson) evaluation with a peak heart rate of 93 beats per minute (63% percent predicted maximal heart rate) and a peak blood pressure of 140/70 mmHg. The patient was injected with 33.7 millicuries of technetium 99m Cardiolite and subsequently stress SPECT Cardiolite nuclear imaging was obtained in the horizontal long, vertical long, and short axis views. A gated Cardiolite study at peak stress was obtained. Interpretation: Rest and stress SPECT Cardiolite nuclear imaging status post realignment, normalization, and attenuation correction demonstrate relative uniform tracer uptake and myocardial perfusion appearing within normal limits. There is end systolic thickening and brightening. The gated Cardiolite study demonstrates myocardial thickening and inward wall motion. The reported LVEF is 63%. Impression: 1. Rest and stress SPECT Cardiolite nuclear imaging demonstrate relative uniform tracer uptake and myocardial perfusion appearing within normal limits. 2. The gated Cardiolite study reports an LVEF of 63%. Labs: LDL Cholesterol 137 mg/dL (0-130) H HDL Cholesterol 43 mg/dL (40-) Triglycerides 282 mg/dL (-199) H VLDL Cholesterol 56 mg/dL (5-40) H Diagnostics: Electrocardiogram Stress Test NM Stress Test Chest X-Ray Pulmonary: No Data to Display 08/26/20 [id number]<Electronically signed by Ivonne BOUCHER>Date Ivonne BOUCHER Cosigner Signature:Date (if applicable) CC: Dr. Katt Ramsay MD ~ Addendum: 09-14-2020 Additional information: DATE OF SERVICE: 12/11/2013 DATE OF PROCEDURE: December 11, 2013 CARDIAC CATHETERIZATION SUMMARY HISTORY OF PRESENT ILLNESS: The patient is a very pleasant 68-year-old diabetic female, former smoker, with a history of hypertension, hypercholesterolemia, recently had her gallbladder removed in [place] several weeks ago. She presented to [facility] with significant nausea and vomiting, as well as chest pain. She has some dynamic EKG changes and was transported to [facility] on December 03, 2013. She was found to have a non-ST elevation myocardial infarction and underwent urgent catheterization by Dr. Dandre Copeland. At that time she was found to have significant coronary artery disease in her LAD and right coronary artery. She received a 2.25x 23 Xience Xpedition drug-eluting stent to the mid LAD followed by a 2.75x 23 Xience Xpedition drug-eluting stent to the proximal right coronary artery. The patient's LV function was found to be normal. In addition, she has an extensive GI history and has had difficulty over the last 2 years. Her pain on presentation was epigastric, intermittent and sharp sometimes crampy in nature. She has had 2 subsequent visits to the [facility] ER and most recent of which was an admission to [facility] several days ago and discharged yesterday. The patient returned this afternoon with recurrent GI and chest pain symptoms. An EKG demonstrated normal sinus rhythm with the previously noted anterolateral T-wave inversion. Her cardiac enzymes were negative. Given the patient's third readmission since her angioplasty, I recommended that we have a relook angiogram at her coronary arteries to determine if she has any issues with her stents. The risks and benefits of the procedure were thoroughly explained to the patient and informed consent was obtained. The patient was brought to the veterinary laboratory diagnostician in a fasting state. She was given 1 mg of Versed for sedation. Under fluoroscopic guidance the right femoral artery was anesthetized with 1% lidocaine followed by access with a single anterior stick of a Cook needle followed by the placement of an exchange length J wire. Next, a 4-Azerbaijani sheath was placed without complications and flushed with heparinized saline. Next, a 4-[place] JL5 catheter was easily engaged into the left main coronary artery. There was no dampening or ventricularization upon engagement. LEFT MAIN: Left main is a short vessel, which bifurcates into an LAD and a left circumflex artery. There are no significant lesions seen in the left main. LAD: The LAD is a small- to moderate-sized vessel with a visible stent in its midportion just after the bifurcation of the diagonal branch. The stent is widely patent. Proximal portion of the LAD has minimal eccentric 20% stenosis. Just distal to the LAD there appears to be a step down from the placed stent. Again, the stent is a 2.25 mm stent and appears to be slightly oversized given the small nature of her vessels. The patient was quite hypertensive and received 200 mcg of intracoronary nitroglycerin. Repeat angiogram after nitroglycerin demonstrated minimal change in her stenosis distal to the stent. Therefore, this does not appear to be spasm, but rather just the size of the vessel itself. As engagement of the left main was somewhat difficult, we attempted to engage with the JL4 catheter for better visualization of the LAD. However, despite this we had difficulty filling the distal LAD. I am uncertain whether there is bridging collaterals just distal to the LAD, but this is not out of the question or possibility. LEFT CIRCUMFLEX: Left circumflex artery is a codominant vessel. It is free of significant disease in its proximal portion. There is a large obtuse marginal bifurcating off the main AV circ. There is minimal nonobstructing disease in the superior and inferior branch of the obtuse marginal branch. The remainder of the AV circumflex terminates into a posterior descending-type artery. There is minimal nonobstructive disease. There are no lesions, which require intervention. The JL4 catheter was exchanged over a wire for a 4-[place]zerbaijani 3DRC catheter. This was easily engaged into the right coronary artery. There was no dampening or ventricularization upon engagement. There was a visible stent seen in the proximal right coronary artery. This was widely patent. The remainder of the right coronary artery is free of significant disease. PDA: The PDA is a moderate-sized vessel, which populates the inferior portion of the heart. There are no significant acute posterolateral branches. There are no significant lesions seen in the PDA. Next, the 3DRC catheter was exchanged over a wire for a 4-[place]zerbaijani angled pigtail catheter. This was placed in the LV chamber. The LV pressure was 195/0 with a mean of 22, AO pressure was 219/83 with a mean of 134. The patient received 300 mcg of intra- arterial nitroglycerin, which reduced her pressure to an acceptable amount prior to the LV angiogram. The LV angiogram performed in the 30-degree TOSCANO position demonstrated excellent anterior apical and inferior contractility with overall global hypokinesis. The overall ejection fraction was 70%. There was no significant mitral regurgitation. No significant gradient seen on pullback. There appeared to be at least moderate concentric LVH. CONCLUSIONS: 1. Widely patent mid LAD drug-eluting stent. 2. Widely patent proximal right coronary artery drug-eluting stent. 3. Nonobstructive disease of the mid to distal LAD, cannot exclude myocardial bridging. 4. Hyperdynamic LV function with LVEF of 75%. 5. Severe systemic hypertension. 6. No significant mitral regurgitation or aortic valve gradient on pullback. RECOMMENDATIONS: The patient was given 5 mg of IV Lopressor and 1 inch of nitroglycerin paste. In addition she was given 300 mcg of intra-arterial nitroglycerin in order to get her pressure down low enough to pull her sheath. Once her blood pressure was well controlled, her sheath was removed and hemostasis obtained. At this point I would recommend medical management with baby aspirin, Plavix, Lopressor. We will increase her DANIEL inhibitor to 20 mg p.o. daily and titrate this up from there. I will hold her Lipitor, metformin and her antibiotics for presumed H. pylori for which she was prescribed without a biopsy. In addition, we have already notified Dr. Kimball that the patient will require a GI evaluation. She is recently status post c holecystectomy for an inflamed gallbladder in [place]. In addition she had a CT scan of the abdomen, which reportedly revealed evidence of sigmoid diverticulosis without evidence of diverticulitis. An intraoperative cholangiogram at that time reportedly showed no stones. It is also possible the patient may have undiagnosed gastroparesis or perhaps an ulcer. It is my understanding the patient may undergo an upper GI scope tomorrow by Dr. Kimball to evaluate for possible ulcer. I would not resume her antibiotic therapy for H. pylori unless she has documented H. pylori. I do not believe the patient requires any further intervention of her LAD. The patient already has received a 2.25 mm stent upstream from the narrowed area noted on the above evaluation and this stent apparently was mildly oversized, given the size of her vessels. Any additional stenting would most likely dilate her distal LAD even more, and therefore would not be recommended at this time. It appears her symptoms are primarily GI in the first place anyhow. Discussed with Dr. Damari Mendoza. The patient tolerated procedure well. Stephen Pittman M.D. The surgeon/proceduralist and patient have discussed in detail the risk of exposure to and/or potential harm posed by the COVID-19 virus with having a surgery/procedure at this time versus the risk of delaying the surgery/procedure. It is not possible to know either the risk of delaying the surgery or procedure or chance of getting an infection with perfect accuracy, but a joint decision was made between the patient and the surgeon/proceduralist to proceed at this time with the scheduled surgery/procedure as indicated on the consent form. I have re-examined the patient. There are no clinical changes since date of exam.
--- NOTE | 2020-09-14 11:15 | EKG12_ITS ---
Test Reason : PCI Blood Pressure : / mmHG Vent. Rate : 059 BPM Atrial Rate : 059 BPM P-R Int : 172 ms QRS Dur : 070 ms QT Int : 416 ms P-R-T Axes : 042 013 068 degrees QTc Int : 411 ms Sinus bradycardia Poor R wave progression Confirmed by TERI NICOLE, RAI ([id number]), editorial clerk FELICIA YIN ([id number]) on 09/15/2020 1:18:24 PM Referred By: Rai Williamson Confirmed By:RAI WILLIAMSON MD
[2020-09-14] MEDS: Isosorbide Mononitrate 30 MG Tablet PO (11:22)
[2020-09-14] MEDS: 0.9% Normal Saline 1,000 ML 125 ML IV (11:22)
--- NOTE | 2020-09-14 11:29 | CL.I_ITS ---
Patient Name: VALERIANO CROSS Study Date: 09/14/2020 Performing: Asha Adams MD Ht: 59.06 inches 150 cm : 1945 Wt: 136.69 lbs 62 kg Age: 75 Gender: female BSA: 1.57 PROCEDURE(S) PERFORMED PE40-AUD W OR WO PTCA, SINGLE CORONARY ARTERY CLINICAL PROFILE AND CO-MORBIDITIES Indications: Worsening Angina Heart Failure: None Stress/Imaging Date: 03/02/2020 Angina Classification Anginal Classification w/in 2 Weeks: Anginal Equivalent Dyspnea CAD Presentations: Other: chest pain; dyspnea on exertion; NTG SL use CONCLUSIONS Successful CLEMENT to pRCA RECOMMENDATIONS DESCRIPTION OF PROCEDURE The patient arrived to the procedure lab. The risks and benefits of the procedure as well as a full d escription of our services here and current unavailability of surgical backup were fully explained to the patient and/or their significant other prior to the catheterization. The Timeout was completed, verifying the correct patient and procedure. The patient's procedural site was prepped and draped in the usual fashion. Local anesthetic was given subcutaneously to right ulnar region with Lidocaine 2% Using a modified Seldinger technique,arterial access was obtained via the right ulnar artery, a 6Fr s aury was inserted. Left Coronary Artery selective angiography was performed in multiple views using a 5 Fr. JL3.5 catheter. Left Ventriculography was performed in TOSCANO projection using a 5 Fr. Pigtail c atheter. LV to AO pullback pressures were then recorded.The images were reviewed and options discusse d. A decision was then made to proceed with an Intervention, IVUS or other adjunct procedure. JR4 Guide catheter was inserted and engaged into the RCA. [place] Guide wire was advanced t o the RCA. Orsiro 2.5 x 13 Drug Eluting stent was inserted. Drug Eluting stent was advanced across th e lesion in the right coronary, proximal. NC Emerge 2.5 x 12 Balloon catheter was inserted. Balloon c atheter was advanced across lesion in the right coronary, proximal. Angiogram performed post balloon dilatation. The arterial sheath was pulled and a TR Band was applied for hemostasis INTERVENTION INFORMATION LESION SITE: RCA (Proximal) Lesion Complexity: High/C, chronic total occlusion: No, lesion at bifurcation: No, thrombus present: No, lesion length: 11 mm, culprit lesion: Yes, Previously treated lesion: No Pre Stenosis: 80 % Pre intervention TAHIR flow: 3 PROCEDURE: Drug Eluting Stent with post dilatation Post Stenosis: 0 % Post intervention TAHIR flow: 3 Lesion Devices: Cardinal 6 Fr JR4 100cm Guide Catheter Ortega .014 [place] Straight 190cm Thom Sci NC EMERGE MR 2.50x12 BALLOON COMPLICATIONS No Complications PROCEDURE MEDICATIONS Versed 1 mg IV Fentanyl 50 mcg IV Versed 1 mg IV Fentanyl 50 mcg IV Oxygen: 2 L/min via nasal cannula Heparin given IA 09/14/2020 09:40:32 Heparin 2000 unit(s) IV 09/14/2020 10:24:51 Plavix 75 mg PO 09/14/2020 07:55:38 Verapamil 2.5mg, Ntg 100mcgs, 3000 units of Heparin given IA 09/14/2020 09:40:32 SUMMARY OF HEMODYNAMIC DATA Time AIR REST ECG 08:01:31 Art 135/53 (79) 09:41:01 AO 148/41 (79) SA 09:46:36 AO 124/62 (86) 09:51:21 LV 172/4, 26 10:13:01 LV 174/4, 30 10:13:08 LV 163/4, 25 10:14:28 LV 162/3, 24 10:14:34 LVp 160/-1, 20 10:14:38 AOp 160/57 (94) 10:14:43 Signed By Asha Adams MD On 09/14/2020 11:28:50 Asha Adams MD
--- NOTE | 2020-09-14 13:04 | CL.D_ITS ---
Patient Name: VALERIANO CROSS Study Date: 09/14/2020 Performing: Rai Solorzano MD Ht: 59.06 inches 150 cm : 1945 Wt: 136.69 lbs 62 kg Age: 75 Gender: female BSA: 1.57 PROCEDURE(S) PERFORMED [id number]/COR/LV [id number] W OR WO PTCA, SINGLE CORONARY ARTERY CLINICAL PROFILE AND INDICATIONS Indications: Worsening Angina Heart Failure: None Stress/Imaging Date: 03/02/2020 Angina Classification Anginal Classification w/in 2 Weeks: Anginal Equivalent Dyspnea CAD Presentations: Other: chest pain; dyspnea on exertion; NTG SL use CONCLUSIONS Normal Left Ventricular End Diastolic Pressure Normal LV size, wall motion,and systolic function LVEF: by LV gram 65 % [place] Multivessel CAD LAD: stent: patent RCA: stent: patent RECOMMENDATIONS Risk factor modification Medical therapy Interventional Cardiology consultation: regarding the need for additional catheter based diagnostic s tudies / PCI DESCRIPTION OF PROCEDURE The patient arrived to the procedure lab. The risks and benefits of the procedure as well as a full d escription of our services here and current unavailability of surgical backup were fully explained to the patient and/or their significant other prior to the catheterization. The Timeout was completed, verifying the correct patient and procedure. The patient's procedural site was prepped and draped in the usual fashion. Local anesthetic was given subcutaneously to right ulnar region with Lidocaine 2%. Using a modified Seldinger technique, arterial access was obtained via the right ulnar artery, a 6Fr sheath was inserted. Left Coronary Artery selective angiography was performed in multiple views usi ng a 5 Fr. JL3.5 catheter. Left Ventriculography was performed in TOSCANO projection using a 5 Fr. Pig[place] l catheter. LV to AO pullback pressures were then recorded.The arterial sheath was pulled and a TR Ba nd was applied for hemostasis CORONARY ANGIOGRAPHY DOMINANCE: Right Dominant LEFT HEART ASSESSMENT Left Ventricular Ejection Fraction: by LV Gram 65 % Normal LV wall motion Normal Left Ventricular End Diastolic Pressure LVEDP: 4 mmHg LEFT MAIN: Angiographically normal LEFT ANTERIOR DESCENDING ARTERY: PROX LAD: Mild luminal irregularities MID LAD: Previously placed stent is patent DIAGONAL 1: Proximal - very small caliber vessel: 95 % Stenosis CIRCUMFLEX ARTERY: Mild luminal irregularities OM 1: Proximal - Mild luminal irregularities RIGHT CORONARY ARTERY: PROX RCA: 75 % Stenosis, Previously placed stent is patent RT PDA: Proximal - small caliber vessel: 50 - 75 % Stenosis AORTIC ROOT: Angiographically normal COMPLICATIONS No Complications PROCEDURE MEDICATIONS Versed 1 mg IV Fentanyl 50 mcg IV Versed 1 mg IV Fentanyl 50 mcg IV Oxygen: 2 L/min via nasal cannula Heparin given IA 09/14/2020 09:40:32 Heparin 2000 unit(s) IV 09/14/2020 10:24:51 Plavix 75 mg PO 09/14/2020 07:55:38 Verapamil 2.5mg, Ntg 100mcgs, 3000 units of Heparin given IA 09/14/2020 09:40:32 SUMMARY OF HEMODYNAMIC DATA Time AIR REST ECG 08:01:31 Art 135/53 (79) 09:41:01 AO 148/41 (79) SA 09:46:36 AO 124/62 (86) 09:51:21 LV 172/4, 26 10:13:01 LV 174/4, 30 10:13:08 LV 163/4, 25 10:14:28 LV 162/3, 24 10:14:34 LVp 160/-1, 20 10:14:38 AOp 160/57 (94) 10:14:43 Signed By Rai Solorzano MD On 09/14/2020 13:03:07 Rai Solorzano MD
--- NOTE | 2020-09-14 14:58 | CRPHASE1 ---
Patient Communication PHII Cardiac Rehab Discussed with Patient:: Yes Guide to Cardiac Rehab Given to Patient:: Yes Cardiac Rehab Facility Choice List Given to Patient:: Yes Choice Program [facility] PHII:: Communication Given to CR [employer] Clerk:: Rai Solorzano Phase II Cardiac Rehab:: Yes Sessions:: 36 sessions - 3 days/wk, 12 weeks Cardiac Rehabilitation Info Cardiac Rehabilitation Program Information: Cardiac Rehabilitation is important for patients like you who are recovering from a heart problem. Cardiac rehabilitation programs are recognized as integral to the continued care of the patient with coronary heart disease. The cardiac rehabilitation program is designed to optimize a patient's physical, psychological, and social functioning. Health child care attendant work in cardiac rehabilitation programs and assist you with getting the treatments you need to get stronger and healthier - like exercise, healthy eating habits, and medications. Cardiac rehabilitation has been show to help people with heart problems live longer and have better life enjoyment than people who do not go to cardiac rehabilitation. Please contact the Cardiac Rehabilitation Program at [facility] at in two weeks if you have not heard from them.
--- NOTE | 2020-09-14 14:58 | CRPH1.INSTRU ---
General Education CAD and cardiac anatomy and function:: Patient communicates acknowledgment, Needs reinforcement Explanation of diagnoses and procedures:: Patient communicates acknowledgment, Needs reinforcement Sign/Symptoms of ID:: Patient communicates acknowledgment, Needs reinforcement Antiplatelet therapy: Patient communicates acknowledgment, Needs reinforcement Proper use of NTG-SL: Patient communicates acknowledgment, Needs reinforcement Emergency procedures and activation of EMS: Patient communicates acknowledgment, Needs reinforcement Compliance of all prescribed medications: Patient communicates acknowledgment, Needs reinforcement Smoking Patient Nicotine/Smoking Risk Factors Are:: Non-smoker Dyslipidemia Patient Dyslipidemia Risk Factors Are:: Total Cholesterol, Triglycerides, HDL, LDL Recommendations Include:: Lipid profile not available, Reviewed NCEP/ATP guidelines, Therapeutic Lifestyle Change dietary guidelines Dyslipidemia Response Code:: Patient communicates acknowledgment, Needs reinforcement Overweight/Obesity Patient Overweight/Obesity Risk Factors Are:: BMI Normal [24-29 & > 65 years old] Recommendations Include:: Reduced calorie diet, Exercise 5-7 times/week Overweight/Obesity:: Patient communicates acknowledgment, Needs reinforcement Hypertension Recommendations Include:: BP <130/80 if diabetic, DASH dietary guidelines, Decrease/maintain normal body weight, Moderation of ETOH Hypertension:: Patient communicates acknowledgment, Needs reinforcement Heart Disease Patient Heart Disease Risk Factors Are:: Previous cardiac event Recommendations Include:: Educated family members of their risk, Educated family members of importance of prevention of heart disease Heart Disease Response Code:: Patient communicates acknowledgment, Needs reinforcement Diabetes Patient Diabetes Risk Factors Are:: Elevated blood sugars Recommendations Include:: Maintain fasting blood sugars 70-110 md/dL, Maintain HgbA1c of 6% or less, Monitor blood sugar as prescribed, Diabetic dietary guidelines, Decrease/maintain body weight Diabetes:: Patient communicates acknowledgment, Needs reinforcement Sedentary Patient Sedentary Risk Factors Are:: Lack of regular exercise Recommendations Include:: Aerobic exercise 5-7 times/week for 20-30 minutes continuously, Benefits of regular exercise, Discussed home walking program, Monitored Outpatient Cardiac Rehab Sedentary Response Code:: Patient communicates acknowledgment, Needs reinforcement
[2020-09-14] MEDS: Metoprolol Tartrate 25 MG Tablet PO (20:26)
[2020-09-15 02:30] VITALS: BP 158/60; PULSE 66; RESP 18; TEMP 36.8; O2SAT 97
[2020-09-15 03:00] VITALS: PULSE 63
[2020-09-15 05:36] LABS: Absolute Lymphocyte Count 1.01 X10^3/uL (0.83-4.51); Absolute Neutrophil Count 6.7 X10^3/uL (2.0-7.7); Basophil% 1.2 % (0-1); Eosinophil# 0.19 X10^3/uL; Eosinophils% 2.2 % (0-5); Hematocrit 33.7 % (37-47); Hemoglobin 11.3 g/dL (12.0-15.0); Lymphocyte # 1.01 X10^3/ul (0.83-4.51); Lymphocyte % 11.7 % (19-41); Mean Corp Hgb Conc 33.5 g/dL (32-36); Mean Corpuscular Hgb 30.3 pg (27.0-32.0); Mean Corpuscular Volume 90.3 fL (81-99); Mean Platelet Vol. 11.6 fl (6.2-12.0); Monocyte# 0.62 X10^3/uL; Monocyte% 7.2 % (0-10); NRBC Flagged by Analyzer 0 % (0-5); Neutrophil # 6.65 X10^3/uL (2.7-7.7); Neutrophil % 77.1 % (47-70); Platelet Count 236 K/mm3 (150-450); RBC Distribution Width CV 12.3 % (11.6-14.6); RBC Distribution Width SD 40.5 fl (35.1-43.9); Red Blood Count 3.73 M/mm3 (4.2-5.4); White Blood Count 8.6 K/mm3 (4.4-11.0)
[2020-09-15 06:04] LABS: ALB/GLOB Ratio 1.1 RATIO (0.9-2.4); AST(SGOT) 12 U/L (15-37); Alanine Aminotransfer ALT/SGPT 18 U/L (13-56); Albumin, Serum 3.4 g/dL (3.2-5.0); Alkaline Phosphatase 109 U/L (45-117); Anion Gap 6 (5-15); BUN 36 mg/dL (7-18); BUN/Creat Ratio 28.3 RATIO (10-20); Bilirubin, Direct 0.09 mg/dL (0.00-0.30); Calcium,Total 9.5 mg/dL (8.5-10.1); Chloride 110 mmol/L (98-107); Cholesterol 186 mg/dL (200); Creatinine, Serum 1.27 mg/dL (0.55-1.02); EST Glomerular Filtration Rate 44 mL/min (>60); Est Glom Filt Rate - Afr Amer 53 mL/min (>60); Estimated Creatinine Clearance 38.13 ml/min; Glucose 181 mg/dL (74-106); High Density Lipoprotein 37 mg/dL; Potassium 4.5 mmol/L (3.5-5.1); Protein, Total 6.4 g/dL (6.4-8.2); Sodium Level 138 mmol/L (136-145); Triglycerides 305 mg/dL; Very Low Density Lipoprotein 61 mg/dL (5-40)
[2020-09-15 07:00] VITALS: PULSE 57
[2020-09-15 08:10] VITALS: BP 176/53; PULSE 64; RESP 16; TEMP 37; O2SAT 95
[2020-09-15 08:12] VITALS: BP 176/53; PULSE 64
[2020-09-15] MEDS: Aspirin 81 MG TAB.CHEW PO (08:12)
[2020-09-15] MEDS: Clopidogrel Bisulfate 75 MG Tablet PO (08:12)
[2020-09-15] MEDS: Metoprolol Tartrate 25 MG Tablet PO (08:12)
[2020-09-15] MEDS: Isosorbide Mononitrate 30 MG Tablet PO (08:12)
--- NOTE | 2020-09-15 09:48 | PCM.DC ---
Discharge Instructions Diet Discharge Diet: Low fat / Low cholesterol and 1800 Calorie Control Diet Activity Discharge Activity: May Not Drive (x 48 hours), May Shower (Today) and May Take a Tub Bath (in 7 days) May resume sexual activity in: 1-2 weeks Weight Bearing Status: - (avoid heavy exertional activity x 2 weeks) Dressing / Incision Call your doctor if your incision/area has: Continuous Slow Oozing, Sudden Increased Bleeding, Increased Pain/ Swelling, Increased Redness, Foul Smelling Discharge and Swelling at the incision site Call your doctor if you observe: Fever of 101 or Higher, Shortness of breath, Dizziness, Fainting spells, Chest pain and Increased palpitations (irregular heartbeat) Remove Dressing in: 1 day Cleanse incision/area with: Soap & Water Follow Up Care Please Follow Up With: Rai Solorzano MD When: [facility] to arrange outpatient follow up visit Test Results: Test results from this visit will be discussed in further detail at your follow-up appointment, if applicable. Discharge Plan Admission Admit Date/Time: 09/14/20 10:59 Attending Provider: Rai Solorzano Primary Care Provider: Katt Ramsay Discharge Orders/Prescriptions Prescriptions: New isosorbide mononitrate 30 mg tablet extended release 24 hr 30 mg PO DAILY Qty: 30 RF: 6 metoprolol tartrate 25 mg tablet 25 mg PO BID Qty: 60 RF: 6 No Action nitroglycerin 0.4 mg tablet, sublingual 0.4 mg sublingual Q5M PRN (Reason: Chest Pain) Qty: 90 RF: 6 aspirin 81 mg tablet,delayed release (DR/EC) 81 mg PO DAILY@0800 RF: 0 lisinopril 20 MG tablet 20 mg PO DAILY RF: 0 glipizide 2.5 tablet extended release 24hr 2.5 mg PO DAILY RF: 0 clopidogrel [Plavix] 75 mg tablet 75 mg PO DAILY Qty: 30 RF: 3 Referrals / Follow Up: Katt Ramsay MD [Primary Care Provider] - Rai Solorazno MD [STAFF PHYSICIAN] - Disposition Disposition (needs filled in before D/C Order can be placed): Home, self care
--- NOTE | 2020-09-15 09:55 | PCM.DC.SUM ---
Providers Date of Admission: 09/14/20 Primary Care Physician: Dr. Katt Ramsay MD Reason For Visit: CHEST PAIN Diagnosis Discharge Diagnosis (1) S/P PTCA (percutaneous transluminal coronary angioplasty): Status: Acute Code(s): Z98.61 - Coronary angioplasty status (2) Atherosclerotic heart disease of [place] coronary artery without angina pectoris: Status: Chronic Code(s): I25.10 - Atherosclerotic heart disease of [place] coronary artery without angina pectoris Qualifiers: [place] vs. transplanted heart: [place] heart Qualified Code(s): I25.10 - Atherosclerotic heart disease of [place] coronary artery without angina pectoris (3) HLD (hyperlipidemia): Status: Chronic Code(s): E78.5 - Hyperlipidemia, unspecified Qualifiers: Hyperlipidemia type: unspecified Qualified Code(s): E78.5 - Hyperlipidemia, unspecified (4) Essential hypertension: Status: Chronic Code(s): I10 - Essential (primary) hypertension (5) Diabetes mellitus type II, uncontrolled: Status: Chronic Code(s): E11.65 - Type 2 diabetes mellitus with hyperglycemia Medications at Discharge Home Medications lisinopril 20 mg PO DAILY 02/10/15 glipizide 2.5 mg PO DAILY 03/31/19 aspirin 81 mg tablet,delayed release 81 mg PO DAILY@0800 02/18/20 nitroglycerin 0.4 mg sublingual tablet 0.4 mg SUBLINGUAL Q5M PRN #90 tab 02/18/20 clopidogrel 75 mg tablet 75 mg PO DAILY #30 tab 09/06/20 isosorbide mononitrate 30 mg PO DAILY #30 tab 09/15/20 metoprolol tartrate 25 mg PO BID #60 tab 09/15/20 Hospital Course Procedures Cardiac catheterization and - (React intervention: PTCA/CLEMENT) Summary of Care Provided Minutes Spent on Discharge: 45 Hospital Course: The patient presented to [facility] for further evaluation of her ongoing symptoms of chest discomfort with diagnostic cardiac catheterization. Her cardiac catheterization was performed and she was found to have progression of her CAD in her RCA pre her previous RCA PTCA/stenting area. She subsequently underwent additional cardiac intervention of the RCA with PTCA/stent. 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 These vessels were considered small and not ideally amenable to further catheter-based revascularization procedure. Thus it was recommended she also initiate medical therapy in addition to her aspirin and clopidogrel therapy with nitrates and beta-blockers. She was recommended for lipid-lowering therapy with statins, however, she declined secondary to her concerns of side effects and myalgias. She was monitored overnight and appeared to be symptomatically stable. Her ECG demonstrated no acute ECG changes. She was thought stable for release home for continued outpatient follow-up. Physical Exam Const alert, oriented x3 and no apparent distress General Appearance: cooperative, comfortable, well kempt and well developed HEENT normocephalic, head/scalp atraumatic and hearing grossly normal bilaterally Eyes PERRL, EOMs intact bilaterally and conjunctivae normal Neck full ROM Chest inspection of chest normal Resp normal respiratory effort and clear to auscultation bilaterally Cardio regular rate, regular rhythm, S1 normal heart sound and S2 normal heart sound GI normal to inspection, nondistended, normoactive bowel sounds Extremity normal to inspection and full ROM General Extremity: other findings Other Details: Right radial artery pulse: 2+/4+: No obvious bruits: No obvious hematoma Peripheral Pulses: Yes radial pulses present right 2+ Skin General Skin Exam: no breakdown Neuro oriented x3, moves all extremities, no focal motor deficits and no sensory deficits noted Psych mental status grossly normal ABG / Lab / Microbiology Data Result Diagrams: 09/15/20 05:20 09/15/20 05:20 Laboratory: Laboratory Results - last 24 hr 09/15/20 09/15/20 05:20 05:20 WBC 8.6 RBC 3.73 L Hgb 11.3 L Hct 33.7 L MCV 90.3 MCH 30.3 MCHC 33.5 RDW Std Deviation 40.5 RDW Coeff of [place] 12.3 Plt Count 236 MPV 11.6 Immature Gran % (Auto) 0.600 Neut % (Auto) 77.1 H Lymph % (Auto) 11.7 L [place] % (Auto) 7.2 Eos % (Auto) 2.2 Baso % (Auto) 1.2 H Absolute Neuts (auto) 6.7 Absolute Lymphs (auto) 1.01 Nucleated RBC % 0 Sodium 138 Potassium 4.5 Chloride 110 H Carbon Dioxide 22.0 Anion Gap 6 BUN 36 H Creatinine 1.27 H Estim Creat Clear Calc 38.13 Est GFR (MDRD) Af Amer 53 L Est GFR (MDRD) Non-Af 44 L BUN/Creatinine Ratio 28.3 H Glucose 181 H Calcium 9.5 Total Bilirubin 0.30 Direct Bilirubin 0.09 AST 12 L ALT 18 Alkaline Phosphatase 109 Total Protein 6.4 Albumin 3.4 Globulin 3.0 Albumin/Globulin Ratio 1.1 Triglycerides 305 H Cholesterol 186 LDL Cholesterol 88 VLDL Cholesterol 61 H HDL Cholesterol 37 L D/C Instructions Discharge Diet: Low fat / Low cholesterol and 1800 Calorie Control Diet Discharge Activity: May Not Drive (x 48 hours), May Shower (Today) and May Take a Tub Bath (in 7 days) May resume sexual activity in: 1-2 weeks Weight Bearing Status: - (avoid heavy exertional activity x 2 weeks) Call your doctor if your incision/area has: Continuous Slow Oozing, Sudden Increased Bleeding, Increased Pain/ Swelling, Increased Redness, Foul Smelling Discharge and Swelling at the incision site Call your doctor if you observe: Fever of 101 or Higher, Shortness of breath, Dizziness, Fainting spells, Chest pain and Increased palpitations (irregular heartbeat) Cleanse incision/area with: Soap & Water Please Follow Up With: Rai Solorzano MD When: [facility] to arrange outpatient follow up visit Meaningful Use Info Meaningful Use Diagnoses (Choose all that apply): None applicable Discharge Plan Admission Admit Date/Time: 09/14/20 10:59 Attending Provider: Rai Solorzano Primary Care Provider: Katt Ramsay Discharge Orders/Prescriptions Prescriptions: New isosorbide mononitrate 30 mg tablet extended release 24 hr 30 mg PO DAILY Qty: 30 RF: 6 metoprolol tartrate 25 mg tablet 25 mg PO BID Qty: 60 RF: 6 No Action nitroglycerin 0.4 mg tablet, sublingual 0.4 mg sublingual Q5M PRN (Reason: Chest Pain) Qty: 90 RF: 6 aspirin 81 mg tablet,delayed release (DR/EC) 81 mg PO DAILY@0800 RF: 0 lisinopril 20 MG tablet 20 mg PO DAILY RF: 0 glipizide 2.5 tablet extended release 24hr 2.5 mg PO DAILY RF: 0 clopidogrel [Plavix] 75 mg tablet 75 mg PO DAILY Qty: 30 RF: 3 Referrals / Follow Up: Katt Ramsay MD [Primary Care Provider] - Rai Solorzano MD [STAFF PHYSICIAN] - Disposition Disposition (needs filled in before D/C Order can be placed): Home, self care
--- NOTE | 2020-09-15 10:00 | EKG12_ITS ---
Test Reason : AM Blood Pressure : / mmHG Vent. Rate : 062 BPM Atrial Rate : 062 BPM P-R Int : 154 ms QRS Dur : 076 ms QT Int : 400 ms P-R-T Axes : 064 033 068 degrees QTc Int : 406 ms Normal sinus rhythm Normal ECG Confirmed by TERI NICOLE, RAI ([id number]), photo editor FELICIA YIN ([id number]) on 09/16/2020 12:47:05 PM Referred By: Rai Williamson Confirmed By:RAI WILLIAMSON MD
[2020-09-15 10:24] VITALS: BP 140/56; PULSE 60; RESP 18; TEMP 36.7; O2SAT 97
--- NOTE | 2020-09-15 10:37 | PHA.DC.MC ---
Pharmacy Service has performed discharge medication reconciliation and counseling for this patient. 1. METOPROLOL TARTRATE 25MG PO BID 2. ISOSORBIDE MONONITRATE 30MG PO DAILY The patient's discharge medication list was reviewed for discrepancies and discrepancies were resolved. Patient is quite reluctant to start taking new medications. This [facility] encouraged her that they are important and it would be best to follow the doctor's orders and take the medications. Home Medications lisinopril 20 mg PO DAILY 02/10/15 glipizide 2.5 mg PO DAILY 03/31/19 aspirin 81 mg tablet,delayed release 81 mg PO DAILY@0800 02/18/20 nitroglycerin 0.4 mg sublingual tablet 0.4 mg SUBLINGUAL Q5M PRN #90 tab 02/18/20 clopidogrel 75 mg tablet 75 mg PO DAILY #30 tab 09/06/20 isosorbide mononitrate 30 mg PO DAILY #30 tab 09/15/20 metoprolol tartrate 25 mg PO BID #60 tab 09/15/20 The patient was counseled on the following discharge medications and changes in medications for homegoing were reviewed. The Reason for Use, instructions for use, and potential side effects were reviewed for all new medications. The patient's questions regarding all of their medications were answered. The patient was able to verbally demonstrate an understanding of their discharge medications.
--- NOTE | 2020-09-15 11:15 | EKG12_ITS ---
Test Reason : SCHEDULED EKG Blood Pressure : / mmHG Vent. Rate : 059 BPM Atrial Rate : 059 BPM P-R Int : 158 ms QRS Dur : 076 ms QT Int : 408 ms P-R-T Axes : 064 038 067 degrees QTc Int : 403 ms Sinus bradycardia Otherwise normal ECG When compared with ECG of 15-SEP-2020 05:36, MANUAL COMPARISON REQUIRED, DATA IS UNCONFIRMED Confirmed by ENOC NICOLE, KOKO ([id number]), material expeditor FELICIA YIN ([id number]) on 09/16/2020 12:42:31 PM Referred By: Rai Solorzano Confirmed By:KOKO STUBBS MD
== END 2020-09-15 09:55 | disposition home or self-care (01) ==
LOC: PCU 11:10
PROVIDERS: Physician Assistant Medical; Admitting Provider Internal Medicine Cardiovascular Disease; PCP Family Medicine; Referring Provider Internal Medicine Cardiovascular Disease; Visit Provider Internal Medicine Cardiovascular Disease
DX: I25.10 Atherosclerotic heart disease of native coronary artery without angina pectoris (principal); E78.5 Hyperlipidemia, unspecified; K57.30 Diverticulosis of large intestine without perforation or abscess without bleeding; I10 Essential (primary) hypertension; E11.65 Type 2 diabetes mellitus with hyperglycemia; K21.9 Gastro-esophageal reflux disease without esophagitis; I25.2 Old myocardial infarction; K31.84 Gastroparesis; Z79.899 Other long term (current) drug therapy; Z79.84 Long term (current) use of oral hypoglycemic drugs; Z79.82 Long term (current) use of aspirin; Z87.891 Personal history of nicotine dependence
CPT/HCPCS: 36415; 71046; 80048; 80053; 80061; 82248; 85025; 85610; 85730; 92928; 93005; 93458; 96360; 96361; 99152; 99153; 99218; J7030; C1769; C1874; C1887; C1894; C9600; G0378; G0379; Q9967

== ENCOUNTER → 2020-10-11 09:12 | Outpatient (CLI) | payer MEDICARE, SELFPAY ==
[2020-02-18 10:05] VITALS: BMI 26.3
[2020-09-09 11:25] VITALS: BMI 27.6
[2020-10-11 12:44] LABS: Protein, Urine (Random) 149.4 mg/dL (<11.9); Protein:Creat Ratio 928 mg/g CRE (0-200)
[2020-10-11 12:46] LABS: Albumin, Serum 3.9 g/dL (3.2-5.0); BUN 39 mg/dL (7-18); BUN/Creat Ratio 28.7 RATIO (10-20); Calcium,Total 9.8 mg/dL (8.5-10.1); Chloride 106 mmol/L (98-107); Creatinine, Serum 1.36 mg/dL (0.55-1.02); EST Glomerular Filtration Rate 40 mL/min (>60); Est Glom Filt Rate - Afr Amer 49 mL/min (>60); Glucose 147 mg/dL (74-106); Phosphorus 3.2 mg/dL (2.5-4.9); Potassium 4.4 mmol/L (3.5-5.1); Sodium Level 138 mmol/L (136-145)
[2020-10-11 13:01] LABS: Vitamin D,25 Hydroxy 21.7 ng/mL
== END ==
PROVIDERS: PCP Family Medicine; Visit Provider Internal Medicine Nephrology
DX: E11.22 Type 2 diabetes mellitus with diabetic chronic kidney disease (principal); N18.31 Chronic kidney disease, stage 3a; E11.21 Type 2 diabetes mellitus with diabetic nephropathy; E83.52 Hypercalcemia
CPT/HCPCS: 36415; 80069; 82306; 82570; 84156

== ENCOUNTER → 2020-10-19 12:24 | Outpatient (CLI) | payer MEDICARE, SELFPAY ==
[2020-09-09 11:25] VITALS: BMI 27.6
[2020-10-19 14:00] LABS: Albumin, Serum 3.8 g/dL (3.2-5.0); BUN 40 mg/dL (7-18); Calcium,Total 9.9 mg/dL (8.5-10.1); Chloride 109 mmol/L (98-107); Creatinine, Serum 1.25 mg/dL (0.55-1.02); EST Glomerular Filtration Rate 45 mL/min (>60); Est Glom Filt Rate - Afr Amer 54 mL/min (>60); Glucose 154 mg/dL (74-106); Potassium 4.4 mmol/L (3.5-5.1); Sodium Level 137 mmol/L (136-145)
== END ==
PROVIDERS: PCP Family Medicine; Referring Provider Internal Medicine Nephrology; Visit Provider Internal Medicine Nephrology
DX: N17.0 Acute kidney failure with tubular necrosis (principal)
CPT/HCPCS: 36415; 80069

== ENCOUNTER → 2020-10-26 10:42 | Outpatient (CLI) | payer MEDICARE, SELFPAY ==
[2020-09-09 11:25] VITALS: BMI 27.6
--- NOTE | 2020-10-26 11:22 | VDLE_ITS ---
Reason For Study: LLE PAIN Procedure LEFT This is a venous duplex using B-mode, color GSV is normal. flow and spectral Doppler. CFV is compressible, spontaneous, phasic, Exam performed in department. competent, and demonstrates normal The exam was diagnostic. augmentation. A preliminary report was called and/or faxed FV is compressible, spontaneous, phasic, to Dr Doyle @ [phone] @ 11:40 AM. competent and demonstrates normal augmentation. POP V is compressible, spontaneous, phasic, competent and demonstrates normal augmentation. T/P Trunk is compressible. PTV is compressible. LT PerV is compressible. NON-VASCULAR structure noted in the left POP Fossa area measuring 2.65 cm x 1.87 cm in transverse. Longitudinal measurement could not be done as structure stretched from pop fossa space to prox calf. VL/Venous Duplex US, Unilateral Interpretation Summary Deep veins of the left lower extremity are patent and compressible segmentally. There is no evidence of left lower extremity deep vein thrombosis. Valvular competence appears intac t within the proximal deep venous system on the left . The left great saphenous vein appears patent a nd compressible segmentally. A non-vascular, hypoechoic structure is noted in the left poplitea l space, with dimensions as documented above. This may represent a popliteal cyst. Clinical c orrelation is advised. Ordering Physician: Francesco Doyle Referring Physician: Katt Ramsay Performed By: Daisha Meeks RVT, RDCS and Student
== END ==
PROVIDERS: PCP Family Medicine; Referring Provider Orthopaedic Surgery; Visit Provider Orthopaedic Surgery
DX: M79.662 Pain in left lower leg (principal)
CPT/HCPCS: 93971

== ENCOUNTER → 2021-02-07 14:19 | Outpatient (CLI) | payer MEDICARE, SELFPAY ==
[2020-09-09 11:25] VITALS: BMI 27.6
[2021-02-07 16:27] LABS: Hematocrit 36.6 % (37-47); Hemoglobin 12.3 g/dL (12.0-15.0); Mean Corp Hgb Conc 33.6 g/dL (32-36); Mean Corpuscular Hgb 30.8 pg (27.0-32.0); Mean Corpuscular Volume 91.5 fL (81-99); Mean Platelet Vol. 11.5 fl (6.2-12.0); Platelet Count 267 K/mm3 (150-450); RBC Distribution Width CV 12.3 % (11.6-14.6); RBC Distribution Width SD 41.4 fl (35.1-43.9); White Blood Count 6.7 K/mm3 (4.4-11.0)
[2021-02-07 16:40] LABS: Protein, Urine (Random) 88.6 mg/dL (<11.9); Protein:Creat Ratio 929 mg/g CRE (0-200)
[2021-02-07 16:43] LABS: Albumin, Serum 3.7 g/dL (3.2-5.0); BUN 43 mg/dL (7-18); Calcium,Total 9.9 mg/dL (8.5-10.1); Chloride 107 mmol/L (98-107); Creatinine, Serum 1.23 mg/dL (0.55-1.02); EST Glomerular Filtration Rate 45 mL/min (>60); Est Glom Filt Rate - Afr Amer 55 mL/min (>60); Glucose 148 mg/dL (74-106); Phosphorus 3.3 mg/dL (2.5-4.9); Potassium 4.4 mmol/L (3.5-5.1); Sodium Level 139 mmol/L (136-145)
[2021-02-08 07:55] LABS: PTHIN 82.3 pg/mL (18.4-80.1)
== END ==
PROVIDERS: PCP Family Medicine; Visit Provider Internal Medicine Nephrology
DX: N17.0 Acute kidney failure with tubular necrosis (principal); E11.22 Type 2 diabetes mellitus with diabetic chronic kidney disease; E11.21 Type 2 diabetes mellitus with diabetic nephropathy; N18.31 Chronic kidney disease, stage 3a
CPT/HCPCS: 36415; 80069; 82570; 83970; 84156; 85027

== ENCOUNTER → 2021-02-24 11:25 | Outpatient (CLI) | payer MEDICARE, SELFPAY ==
--- NOTE | 2021-02-24 11:26 | US_ITS ---
STUDY: ULTRASOUND OF THE FEMALE PELVIS - COMPLETE REASON FOR EXAM: Female, 75 years old. RLQ PAIN LMP: TECHNIQUE: Transvaginal and transabdominal TECHNICAL QUALITY: Adequate. COMPARISON: None. FINDINGS: The uterus is retroverted and is in a midline position. The uterus measures 5 x 3.8 x 2.7 cm. Normal uterine cervix. The endometrium measures 2 mm in thickness, and is hyperechoic. There is no demonstrated endometrial mass. There is no demonstrated myometrial mass. There is fluid seen within the endometrial canal. I.U.D. - The patient does not have an I.U.D. The right ovary is visualized. The right ovary measures 1.9 x 1.2 x 0.9 cm. There is no right ovarian cyst or ovarian mass. There is no visualized right adnexal mass or complex lesion. There is normal arterial and normal venous vascularity. The left ovary is visualized. The left ovary measures 1.8 x 1.5 x 1.4 cm. There is no left ovarian cyst or ovarian mass. There is no visualized left adnexal mass or complex lesion. There is normal arterial and normal venous vascularity. There is minimal fluid in the cul-de-sac. US/Pelvic (Non ) IMPRESSION: Small amount of fluid within the endometrial canal possibly hemorrhage however clinical correlation recommended Otherwise normal pelvic sonogram for age Electronically Signed: Vicente Tracy MD at 19:18 EST , Service support ,
--- NOTE | 2021-02-24 11:47 | US_ITS ---
STUDY: ULTRASOUND OF THE FEMALE PELVIS - COMPLETE REASON FOR EXAM: Female, 75 years old. RLQ PAIN LMP: TECHNIQUE: Transvaginal and transabdominal TECHNICAL QUALITY: Adequate. COMPARISON: None. FINDINGS: The uterus is retroverted and is in a midline position. The uterus measures 5 x 3.8 x 2.7 cm. Normal uterine cervix. The endometrium measures 2 mm in thickness, and is hyperechoic. There is no demonstrated endometrial mass. There is no demonstrated myometrial mass. There is fluid seen within the endometrial canal. I.U.D. - The patient does not have an I.U.D. The right ovary is visualized. The right ovary measures 1.9 x 1.2 x 0.9 cm. There is no right ovarian cyst or ovarian mass. There is no visualized right adnexal mass or complex lesion. There is normal arterial and normal venous vascularity. The left ovary is visualized. The left ovary measures 1.8 x 1.5 x 1.4 cm. There is no left ovarian cyst or ovarian mass. There is no visualized left adnexal mass or complex lesion. There is normal arterial and normal venous vascularity. There is minimal fluid in the cul-de-sac. US/Transvaginal Non- IMPRESSION: Small amount of fluid within the endometrial canal possibly hemorrhage however clinical correlation recommended Otherwise normal pelvic sonogram for age Electronically Signed: Vicente Tracy MD at 19:18 EST , Service support ,
== END ==
LOC: US 11:25
PROVIDERS: PCP Family Medicine; Referring Provider Internal Medicine Gastroenterology; Visit Provider Internal Medicine Gastroenterology
DX: R10.31 Right lower quadrant pain (principal)
CPT/HCPCS: 76830; 76856

== ENCOUNTER 2021-07-26 09:01 | Outpatient (CLI) | payer MEDICARE, SELFPAY ==
[2021-07-26 12:31] LABS: Protein, Urine (Random) 92.1 mg/dL (<11.9); Protein:Creat Ratio 940 mg/g CRE (0-200)
[2021-07-26 12:34] LABS: Albumin, Serum 3.8 g/dL (3.2-5.0); BUN 43 mg/dL (7-18); BUN/Creat Ratio 33.9 RATIO (10-20); Calcium,Total 9.6 mg/dL (8.5-10.1); Chloride 108 mmol/L (98-107); Creatinine, Serum 1.27 mg/dL (0.55-1.02); EST Glomerular Filtration Rate 44 mL/min (>60); Est Glom Filt Rate - Afr Amer 53 mL/min (>60); Glucose 137 mg/dL (74-106); Potassium 4.8 mmol/L (3.5-5.1); Sodium Level 138 mmol/L (136-145)
== END 2021-07-26 23:59 | disposition home or self-care (01) ==
LOC: POLAB3 09:03
PROVIDERS: PCP Family Medicine; Visit Provider Internal Medicine Nephrology
DX: E11.22 Type 2 diabetes mellitus with diabetic chronic kidney disease (principal); E11.21 Type 2 diabetes mellitus with diabetic nephropathy; N18.31 Chronic kidney disease, stage 3a
CPT/HCPCS: 36415; 80069; 82570; 84156

== ENCOUNTER → 2021-08-23 | Outpatient (CLI) | payer MEDICARE, SELFPAY ==
[2021-08-23 13:45] LABS: Albumin, Serum 3.8 g/dL (3.2-5.0); BUN 33 mg/dL (7-18); BUN/Creat Ratio 24.8 RATIO (10-20); Calcium,Total 10.2 mg/dL (8.5-10.1); Chloride 107 mmol/L (98-107); Creatinine, Serum 1.33 mg/dL (0.55-1.02); EST Glomerular Filtration Rate 41 mL/min (>60); Est Glom Filt Rate - Afr Amer 50 mL/min (>60); Glucose 95 mg/dL (74-106); Phosphorus 2.8 mg/dL (2.5-4.9); Potassium 4.2 mmol/L (3.5-5.1); Sodium Level 139 mmol/L (136-145)
== END | disposition home or self-care (01) ==
LOC: POLAB3 11:21
PROVIDERS: PCP Family Medicine; Visit Provider Internal Medicine Nephrology
DX: E11.22 Type 2 diabetes mellitus with diabetic chronic kidney disease (principal); E11.21 Type 2 diabetes mellitus with diabetic nephropathy; N18.31 Chronic kidney disease, stage 3a
CPT/HCPCS: 36415; 80069

== ENCOUNTER 2021-09-06 15:07 | Outpatient (CLI) | payer MEDICARE, SELFPAY ==
[2021-09-06 18:08] LABS: AST(SGOT) 14 U/L (15-37); Alanine Aminotransfer ALT/SGPT 19 U/L (13-56); Albumin, Serum 3.9 g/dL (3.2-5.0); Alkaline Phosphatase 106 U/L (45-117); Anion Gap 4 (5-15); BUN 34 mg/dL (7-18); BUN/Creat Ratio 27.4 RATIO (10-20); Bilirubin, Direct 0.15 mg/dL (0.00-0.30); Calcium,Total 9.7 mg/dL (8.5-10.1); Chloride 108 mmol/L (98-107); Cholesterol 201 mg/dL (200); Creatinine, Serum 1.24 mg/dL (0.55-1.02); EST Glomerular Filtration Rate 45 mL/min (>60); Est Glom Filt Rate - Afr Amer 54 mL/min (>60); Globulin 3.5 g/dL (2.2-4.2); Glucose 110 mg/dL (74-106); High Density Lipoprotein 39 mg/dL; Protein, Total 7.4 g/dL (6.4-8.2); Sodium Level 139 mmol/L (136-145); Triglycerides 170 mg/dL; Very Low Density Lipoprotein 34 mg/dL (5-40)
== END 2021-09-06 23:59 | disposition home or self-care (01) ==
LOC: MFPLAB 15:08
PROVIDERS: PCP Family Medicine; Referring Provider Family Medicine; Visit Provider Family Medicine
DX: E11.9 Type 2 diabetes mellitus without complications (principal)
CPT/HCPCS: 36415; 80048; 80061; 80076

== ENCOUNTER → 2021-11-30 | Outpatient (CLI) | payer MEDICARE, SELFPAY ==
[2021-11-30 12:53] LABS: Protein, Urine (Random) 67.1 mg/dL (<11.9); Protein:Creat Ratio 815 mg/g CRE (0-200)
[2021-11-30 13:36] LABS: Albumin, Serum 3.7 g/dL (3.2-5.0); BUN 41 mg/dL (7-18); BUN/Creat Ratio 29.9 RATIO (10-20); Calcium,Total 9.8 mg/dL (8.5-10.1); Chloride 108 mmol/L (98-107); Creatinine, Serum 1.37 mg/dL (0.55-1.02); EST Glomerular Filtration Rate 40 mL/min (>60); Est Glom Filt Rate - Afr Amer 48 mL/min (>60); Glucose 96 mg/dL (74-106); Phosphorus 3.1 mg/dL (2.5-4.9); Potassium 5.3 mmol/L (3.5-5.1); Sodium Level 138 mmol/L (136-145)
== END | disposition home or self-care (01) ==
LOC: POLAB3 09:19
PROVIDERS: PCP Family Medicine; Visit Provider Internal Medicine Nephrology
DX: N18.31 Chronic kidney disease, stage 3a (principal); E11.22 Type 2 diabetes mellitus with diabetic chronic kidney disease; E11.21 Type 2 diabetes mellitus with diabetic nephropathy
CPT/HCPCS: 36415; 80069; 82570; 84156

== ENCOUNTER → 2021-12-07 | Outpatient (CLI) | payer MEDICARE, SELFPAY ==
[2021-12-07 12:13] LABS: Potassium 5.8 mmol/L (3.5-5.1)
== END | disposition home or self-care (01) ==
LOC: POLAB3 10:14
PROVIDERS: PCP Family Medicine; Visit Provider Internal Medicine Nephrology
DX: E87.5 Hyperkalemia (principal); E11.40 Type 2 diabetes mellitus with diabetic neuropathy, unspecified
CPT/HCPCS: 36415; 83735; 84132

== ENCOUNTER → 2021-12-09 | Outpatient (CLI) | payer MEDICARE, SELFPAY ==
[2021-12-09 12:44] LABS: Potassium 4.6 mmol/L (3.5-5.1)
== END | disposition home or self-care (01) ==
LOC: POLAB3 11:42
PROVIDERS: PCP Family Medicine; Referring Provider Internal Medicine Nephrology; Visit Provider Internal Medicine Nephrology
DX: E87.5 Hyperkalemia (principal)
CPT/HCPCS: 36415; 84132

== ENCOUNTER 2022-02-07 10:29 | Observation (INO) | payer MEDICARE, SELFPAY ==
[2022-02-07] VITALS (15 sets, daily range): BP systolic 133–165; BP diastolic 48–108; PULSE 53–70; RESP 16–20; TEMP 36.3–36.7; O2SAT 98–100; BMI 27.4
--- NOTE | 2022-02-07 08:35 | STRESSREP ---
Stress Test Report Date: 02-07-2022 Procedure: Exercise tolerance test/imaging study Indications: Chest pain; CAD; PCI Consent: Per the patient Procedure: The patient exercised on a Samuel protocol for 3 minutes completing Stage I achieving a peak heart rate of 133 bpm (91% predicted maximal heart rate) with resting blood pressure of 150/82 mmHg and a peak blood pressure 170/72 mmHg and a peak MET capacity of 4 METs. The baseline ECG demonstrated normal sinus rhythm; poor R wave progression. The peak exercise ECG demonstrated somatic/motion artifact with the early recovery ECG demonstrating approximately 1 mm of horizontal/upsloping ST segment depression in leads II, III, aVF and V4 through V6 and approximately 0.[address] segment elevation in aVR with subsequent resolution to baseline in recovery. There was a rare PVC during exercise. The functional capacity was considered diminished. There was notation of chest discomfort and dyspnea during peak exercise with subsequent spontaneous resolution and recovery. The examination was discontinued secondary to chest discomfort and dyspnea. Impression: 1. Technically adequate (percent predicted maximal heart rate greater than 85%) exercise tolerance test 2. Peak exercise ECG with somatic/motion artifact with the early recovery ECG demonstrating approximately 1 mm of horizontal/upsloping ST segment depression in leads II, III, aVF and V4 through V6 an approximate 0.[address] segment elevation in aVR with subsequent resolution to baseline in recovery 3. There was a rare PVC during exercise 4. Nuclear images pending Myocardial perfusion imaging study: Technique: The patient was injected with 11.8 mCi of technetium 99m Cardiolite and subsequently rest SPECT Cardiolite nuclear imaging was obtained in the horizontal long, vertical long, and short axis views. The patient exercised on a Samuel protocol for 3 minutes completing Stage I achieving a peak heart rate of 133 bpm (91% predicted maximal heart rate) with resting blood pressure of 150/82 mmHg and a peak blood pressure 170/72 mmHg and a peak MET capacity of 4 METs. The patient was injected with 33.9 mCi of technetium 99m Cardiolite and subsequently stress SPECT Cardiolite nuclear imaging was obtained in the horizontal long, vertical long, and short axis views. A gated Cardiolite study at peak stress was obtained. Interpretation: Rest and stress SPECT Cardiolite nuclear imaging status post realignment, normalization, and attenuation correction, demonstrates the appearance of relative uniform tracer uptake and myocardial perfusion appearing within normal limits at rest. Status post stress there is notation of diminished myocardial perfusion/tracer uptake in portions of the mid to distal anterolateral/lateral apical segments. There are similar type findings on the resting and stress pulmonary images. There is end systolic thickening and brightening. The gated Cardiolite study demonstrates myocardial thickening and inward wall motion. The reported LVEF is 57%. Impression: 1. Rest and stress SPECT Cardiolite nuclear imaging demonstrate myocardial perfusion changes concerning for an area of stress-induced myocardial ischemia in portions of the mid to distal anterolateral/lateral apical segments. 2. The gated Cardiolite study reports an LVEF of 57%. This note was generated with [employer] software. It may contain incorrect words, spelling, and punctuation that were not noted in checking the note before signing.
--- NOTE | 2022-02-07 10:14 | PCM.HP.CAR ---
[facility] - General General Date of Admission: 02/07/22 HPI Narrative VALERIANO CROSS, is a 76 year old white female who presents for further evaluation and care of worsening angina pectoris and an abnormal stress nuclear imaging study superimposed upon a history of underlying CAD, status post LAD PTCA/CLEMENT, status post RCA PTCA/CLEMENT x2, hyperlipidemia, hypertension, and previous tobacco use. The patient was recently evaluated as an outpatient with concerns of centralized chest discomfort/pressure with minimal activity concerning for worsening angina pectoris. She did not necessarily describe additional radiation of her discomfort nor did she have ongoing associated nausea, emesis, or diaphoresis. She does have an element of shortness of breath/dyspnea with exertion. There is been no orthopnea, PND, or worsening peripheral pitting edema. She commented on occasional dizziness but no near-syncope or syncope. Of note, the patient states she has been using nitroglycerin sublingual for her discomfort. She states after 1 tablet her discomfort resolves. She was referred for further outpatient cardiovascular evaluation with respect to a stress nuclear imaging study. The results of the study are noted below. Based upon the results of the study it was recommended the patient be brought into the hospital for further evaluation and care including diagnostic cardiac catheterization. [facility] Medical History Arthritis Atherosclerotic heart disease of [place] coronary artery without angina pectoris COPD (chronic obstructive pulmonary disease) Diabetes mellitus type II, uncontrolled Diastolic dysfunction Essential hypertension Gastroparesis GERD (gastroesophageal reflux disease) Heart disease HLD (hyperlipidemia) Kidney disease NSTEMI (non-ST elevated myocardial infarction) (12/03/13) Old myocardial infarction Pancreatic atrophy Presence of stent in coronary artery (~09/14/20) Syncope Home Medications lisinopril 20 mg tablet 20 mg PO DAILY bp 02/10/15 [History Last Taken 02/06/22] glipizide 2.5 mg tablet, extended release 24 hr 5 mg PO DAILY 03/31/19 [History Last Taken 02/06/22] aspirin 81 mg tablet,delayed release 81 mg PO DAILY@0800 pain 02/18/20 [History Last Taken 02/06/22] isosorbide mononitrate 30 mg tablet,extended release 24 hr 30 mg PO DAILY #30 tabs 09/15/20 [Rx Last Taken Unknown] cholecalciferol (vitamin D3) 50 mcg (2,000 unit) capsule 50 mcg PO DAILY 12/09/20 [History Last Taken Unknown] nitroglycerin 0.4 mg sublingual tablet 0.4 mg sublingual Q5M PRN Chest Pain #25 tabs 01/27/22 [Rx Last Taken Unknown] finerenone 10 mg tablet (Kerendia) 10 mg PO DAILY 02/07/22 [History Last Taken 02/06/22] Allergy/AdvReac Type Severity Reaction Status Date / Time benzonatate Allergy lip, Verified 01/26/22 12:59 [From Tesmehnaz Patel] tongue swelling omeprazole [From Prilosec] AdvReac Other Verified 01/26/22 12:59 omeprazole magnesium AdvReac Other Verified 01/26/22 12:59 [From Prilosec] Family History Father Myocardial infarction Sister CAD (coronary artery disease) CABG X 5 Brother CAD (coronary artery disease) Sister Sudden cardiac , Onset Age: 49 Surgical History History of cataract extraction History of section History of cholecystectomy (~2013) History of tonsillectomy Presence of coronary angioplasty implant and graft (~2013) S/P PTCA (percutaneous transluminal coronary angioplasty) Social History Smoking Status: Former smoker how long ago did patient quit smokin years ago alcohol intake: never substance use type: does not use caffeine: No ROS Constitutional Constitutional: Reports as per HPI Eyes Eyes: Reports as per HPI ENT HEENT: Reports as per HPI Cardiovascular Cardiovascular: Reports chest pain, chest pain with activity, dyspnea and dyspnea on exertion Respiratory/Chest Respiratory/Chest: Reports dyspnea Gastrointestinal Gastrointestinal: Reports as per HPI Genitourinary Genitourinary: Reports as per HPI Musculoskeletal Musculoskeletal: Reports as per HPI Integumentary Integumentary: Reports as per HPI Neurologic Neurologic: Reports as per HPI Psychiatric Psychiatric: Reports as per HPI Vital Signs Vital Signs Vital Signs: 02/07/22 09:52 Temperature 97.3 F L Temperature Source Temporal Pulse Rate 58 L Respiratory Rate 18 Blood Pressure 165/48 H Blood Pressure Mean 87 Blood Pressure Source Monitor Blood Pressure Position Semi-Fowlers Blood Pressure Location Right Arm Pulse Ox 100 Oxygen Delivery Method Room Air Weight Weight: 140 lb 6.951 oz Body Mass Index (BMI) 27.4 Physical Exam Const alert, oriented x3 and no apparent distress Orientation / Consciousness: awake HEENT normocephalic, head/scalp atraumatic and hearing grossly normal bilaterally Eyes PERRL, EOMs intact bilaterally, conjunctivae normal and no scleral icterus Neck full ROM, supple and no JVD Carotids: normal carotid upstroke Resp normal respiratory effort and clear to auscultation bilaterally Cardio regular rate, regular rhythm, S1 normal heart sound and S2 normal heart sound GI normal to inspection, nondistended, normoactive bowel sounds Extremity no pedal edema Skin no rashes or lesions noted Neuro oriented x3, moves all extremities, no focal motor deficits and no sensory deficits noted Psych mental status grossly normal Cardiology Labs/Tests Cardiology Labs/Tests: Rhythm: Sinus rhythm EKG: Echocardiogram 07/13/2018: Interpretation Summary Left ventricular systolic function is normal. The estimated ejection fraction is 65 %. The left atrium is mildly enlarged. Mild diffuse mitral valve thickening. Trivial mitral valve insufficiency. Mild tricuspid valve insufficiency. Mild focal aortic valve calcification. Trivial pulmonic valve insufficiency. Right ventricular systolic pressure estimated to be 32 mmHg. Diastolic function is indeterminate. Stress Test Report Date: 03-02-2020 Procedure: Pharmacologic stress nuclear imaging study Indications: CAD; non-ST segment elevation RI; PCI: Chest discomfort Consent: Per the patient Procedure: The patient underwent pharmacologic (Regadenoson) evaluation with a peak heart rate of 93 beats per minute (63%predicted maximal heart rate) and a peak blood pressure of 140/70 mmHg. The baseline ECG demonstrated sinus rhythm.? The peak pharmacologic ECG demonstrated no obvious ECG changes. There were no cardiac dysrhythmias pretest, during pharmacologic infusion, or recovery. There was no complaint of chest discomfort during pharmacologic infusion or recovery. The examination was discontinued secondary to completion of protocol. Impression: 1.? Pharmacologic (Regadenoson) evaluation 2.? Peak pharmacologic ECG with no obvious ECG changes. 3.? There were no cardiac dysrhythmias pretest, during pharmacologic infusion, or recovery. 4.? Nuclear images pending Myocardial perfusion imaging study: Technique: The patient was injected with 10.8 millicuries of technetium 99m Cardiolite and subsequently rest SPECT Cardiolite nuclear imaging was obtained in the horizontal long, vertical long, and short axis views. The patient underwent pharmacologic (Regadenoson) evaluation with a peak heart rate of 93 beats per minute (63% percent predicted maximal heart rate) and a peak blood pressure of 140/70 mmHg. The patient was injected with 33.7 millicuries of technetium 99m Cardiolite and subsequently stress SPECT Cardiolite nuclear imaging was obtained in the horizontal long, vertical long, and short axis views.? A gated Cardiolite study at peak stress was obtained. Interpretation: Rest and stress SPECT Cardiolite nuclear imaging status post realignment, normalization, and attenuation correction demonstrate relative uniform tracer uptake and myocardial perfusion appearing within normal limits.? There is end systolic thickening and brightening.? The gated Cardiolite study demonstrates myocardial thickening and inward wall motion.? The reported LVEF is 63%. Impression: 1.? Rest and stress SPECT Cardiolite nuclear imaging demonstrate relative uniform tracer uptake and myocardial perfusion appearing within normal limits. 2.? The gated Cardiolite study reports an LVEF of 63%. Stress Test Report Date: 02-07-2022 Procedure: Exercise tolerance test/imaging study Indications: Chest pain; CAD; PCI Consent: Per the patient Procedure: The patient exercised on a Samuel protocol for 3 minutes completing Stage I achieving a peak heart rate of 133 bpm (91% predicted maximal heart rate) with resting blood pressure of 150/82 mmHg and a peak blood pressure 170/72 mmHg and a peak MET capacity of 4 METs. The baseline ECG demonstrated normal sinus rhythm; poor R wave progression.? The peak exercise ECG demonstrated somatic/motion artifact with the early recovery ECG demonstrating approximately 1 mm of horizontal/upsloping ST segment depression in leads II, III, aVF and V4 through V6 and approximately 0.[address] segment elevation in aVR with subsequent resolution to baseline in recovery. There was a rare PVC during exercise.? The functional capacity was considered diminished. There was notation of chest discomfort and dyspnea during peak exercise with subsequent spontaneous resolution and recovery. The examination was discontinued secondary to chest discomfort and dyspnea. Impression: 1.? Technically adequate (percent predicted maximal heart rate greater than 85%) exercise tolerance test 2.? Peak exercise ECG with somatic/motion artifact with the early recovery ECG demonstrating approximately 1 mm of horizontal/upsloping ST segment depression in leads II, III, aVF and V4 through V6 an approximate 0.[address] segment elevation in aVR with subsequent resolution to baseline in recovery 3.? There was a rare PVC during exercise 4.? Nuclear images pending Myocardial perfusion imaging study: Technique: The patient was injected with 11.8 mCi of technetium 99m Cardiolite and subsequently rest SPECT Cardiolite nuclear imaging was obtained in the horizontal long, vertical long, and short axis views. The patient exercised on a Samuel protocol for 3 minutes completing Stage I achieving a peak heart rate of 133 bpm (91% predicted maximal heart rate) with resting blood pressure of 150/82 mmHg and a peak blood pressure 170/72 mmHg and a peak MET capacity of 4 METs. The patient was injected with 33.9 mCi of technetium 99m Cardiolite and subsequently stress SPECT Cardiolite nuclear imaging was obtained in the horizontal long, vertical long, and short axis views.? A gated Cardiolite study at peak stress was obtained. Interpretation: Rest and stress SPECT Cardiolite nuclear imaging status post realignment, normalization, and attenuation correction, demonstrates the appearance of relative uniform tracer uptake and myocardial perfusion appearing within normal limits at rest.? Status post stress there is notation of diminished myocardial perfusion/tracer uptake in portions of the mid to distal anterolateral/lateral apical segments.? There are similar type findings on the resting and stress pulmonary images.? There is end systolic thickening and brightening.? The gated Cardiolite study demonstrates myocardial thickening and inward wall motion.? The reported LVEF is 57%. Impression: 1.? Rest and stress SPECT Cardiolite nuclear imaging demonstrate myocardial perfusion changes concerning for an area of stress-induced myocardial ischemia in portions of the mid to distal anterolateral/lateral apical segments. 2.? The gated Cardiolite study reports an LVEF of 57%. Heart cath 09/14/2020: Normal Left Ventricular End Diastolic Pressure Normal LV size, wall motion,and systolic function LVEF: by LV gram 65 % [place] Multivessel CAD LAD: stent: patent RCA: stent: patent RECOMMENDATIONS Risk factor modification Medical therapy Interventional Cardiology consultation: regarding the need for additional catheter based diagnostic studies / PCI DESCRIPTION OF? PROCEDURE The patient arrived to the procedure lab. The risks and benefits of the procedure as well as a full description of our services here and current unavailability of surgical backup were fully explained to the patient and/or their significant other prior to the catheterization. The Timeout was completed, verifying the correct patient and procedure. The patient's procedural site was prepped and draped in the usual fashion. Local anesthetic was given subcutaneously to right ulnar region with Lidocaine 2%. Using a modified Seldinger technique, arterial access was obtained via the right ulnar artery, a 6Fr sheath was inserted.? Left Coronary Artery selective angiography was performed in multiple views using a 5 Fr. JL3.5 catheter. Left Ventriculography was performed in TOSCANO projection using a 5 Fr. Pigtail catheter. LV to AO pullback pressures were then recorded.The arterial sheath was pulled and a TR Band was applied for hemostasis CORONARY ANGIOGRAPHY DOMINANCE:? Right Dominant LEFT HEART ASSESSMENT Left Ventricular Ejection Fraction: by LV Gram 65 % Normal LV wall motion Normal Left Ventricular End Diastolic Pressure LVEDP: 4 mmHg LEFT MAIN: Angiographically normal LEFT ANTERIOR DESCENDING ARTERY: PROX LAD: Mild luminal irregularities MID LAD: Previously placed stent is patent DIAGONAL 1: Proximal - very small caliber vessel: 95 % Stenosis CIRCUMFLEX ARTERY: Mild luminal irregularities OM 1: Proximal - Mild luminal irregularities RIGHT CORONARY ARTERY: PROX RCA: 75 % Stenosis, Previously placed stent is patent RT PDA: Proximal - small caliber vessel: 50 - 75 % Stenosis PCI: Successful CLEMENT to pRCA Assessment & Plan Assessment/Plan (1) Angina pectoris: PLAN: The patient presents with symptoms of worsening angina pectoris. She is undergone noninvasive and invasive valuation the past. Today she underwent repeat noninvasive valuation with a stress nuclear imaging study. The results are noted below. It is noted that she had symptoms compatible with exertional angina pectoris, abnormal ECG changes, and abnormal myocardial perfusion changes. It was recommended the patient be brought into the hospital for further evaluation care with diagnostic cardiac catheterization. The procedure and risk were discussed with her. She was agreeable to this approach. (2) Abnormal stress test: PLAN: The patient did undergo a stress nuclear imaging study. The results are as noted. Based upon the results she has been recommended for further evaluation with diagnostic cardiac catheterization (3) CAD (coronary artery disease): PLAN: The patient has a history of CAD. She has been on medical management. She states she is still taking her aspirin therapy and her clopidogrel/Plavix therapy. She states she cannot tolerate nitrates such as isosorbide mononitrate secondary to concerns of dizziness. However, she cannot tolerate nitroglycerin sublingual as needed which she has been using for her symptoms. She states she is no longer on her beta-blockers. She is unsure why. Her medications will be adjusted. She will continue with her evaluation as noted. (4) S/P PTCA (percutaneous transluminal coronary angioplasty): PLAN: The patient has a history of previous PCI as noted. Based upon her symptoms and her stress test findings there be concern of the possibility of progression of her [place] vessel disease and/or in-stent restenosis especially in the LCA distribution. Thus she will continue medical therapy and further evaluation as noted. (5) HLD (hyperlipidemia): QUALIFIERS: Hyperlipidemia type: unspecified Qualified Code(s): E78.5 - Hyperlipidemia, unspecified PLAN: The patient should continue risk factor modification and medical management with lipid-lowering therapy unless otherwise not tolerated. (6) Essential hypertension: PLAN: The patient's blood pressure will be followed. Her medicines can be adjusted accordingly. (7) Renal insufficiency: PLAN: The patient is noted to have a history of chronic renal insufficiency. She will need to continue medical management with adjustment in and around her renal function. Also this will be taken into consideration with further evaluation with IV contrast study such as Kostic cardiac catheterization. Addt'l Comments The above was discussed with the patient. She agrees with the aforementioned evaluation and care plan. This note was generated using a voice recognition system and there may be incorrect words, spelling or punctuation that were not noted when reviewing the office note prior to saving. Procedure Criteria Type of Procedure Procedure Type: Elective Elective Risks - COVID COVID Risk Discussion: The surgeon/proceduralist and patient have discussed in detail the risk of exposure to and/or potential harm posed by the COVID-19 virus with having a surgery/procedure at this time versus the risk of delaying the surgery/procedure. It is not possible to know either the risk of delaying the surgery or procedure or chance of getting an infection with perfect accuracy, but a joint decision was made between the patient and the surgeon/proceduralist to proceed at this time with the scheduled surgery/procedure as indicated on the consent form.
--- NOTE | 2022-02-07 10:28 | EKG12_ITS ---
Test Reason : PRE CATH Blood Pressure : / mmHG Vent. Rate : 060 BPM Atrial Rate : 060 BPM P-R Int : 146 ms QRS Dur : 072 ms QT Int : 408 ms P-R-T Axes : 061 055 079 degrees QTc Int : 408 ms Normal sinus rhythm Normal ECG Confirmed by TERI NICOLE, BRUCE ([id number]), editor in chief newspaper FELICIA YIN ([id number]) on 02/08/2022 11:08:35 AM Referred By: Sri Longoria Confirmed By:BRUCE WILLIAMSON MD
--- NOTE | 2022-02-07 10:31 | ECHOD_ITS ---
Reason For Study: CHEST PAIN Procedure This was a 2D Doppler, Color Flow transthoracic echocardiogram. Exam performed portable in patient room. Left Ventricle Normal LV size. Left ventricular systolic function is normal. The estimated ejection fraction is 60 %. Stage 2 diastolic dysfunction. No regional wall motion abnormalities noted. Right Ventricle Normal RV size. Normal systolic function. Atria The left atrium is mildly enlarged. Normal right atrium. No doppler evidence for ASD. Mitral Valve There is no mitral annular calcification. Mild focal mitral valve calcification of the anterior leaflet. Trivial mitral valve insufficiency. Tricuspid Valve Normal tricuspid valve. Trivial tricuspid valve insufficiency. Right ventricular systolic pressure estimated to be 32 mmHg. Aortic Valve Trisinus/trileaflet aortic valve. Mild focal aortic valve calcification. Pulmonic Valve The pulmonic valve is not well visualized. Trivial pulmonic valve insufficiency. Great Vessels Normal sized aortic root. Pericardium/Pleural No pericardial effusion. MMode/2D Measurements & Calculations LVIDd: 4.9 cm IVSd: 1.2 cm Ao root diam: 3.0 cm LVIDs: 2.9 cm LVPWd: 1.1 cm RVDd: 2.9 cm FS: 39.9 % LAV(MOD-bp): 65.6 ml LVAd ap4: 25.7 cm2 LVAd ap2: 24.2 cm2 LAV(MOD-bp) Indexed: 40.9 ml/m2 LVLd ap4: 7.9 cm LVLd ap2: 7.0 cm LAV(MOD-sp2): 53.9 ml EDV(MOD-sp4): 69.7 ml EDV(MOD-sp2): 71.1 ml LAV(MOD-sp4): 78.4 ml EDV(sp4-el): 70.8 ml EDV(sp2-el): 70.7 ml LVAs ap4: 14.3 cm2 LVAs ap2: 14.4 cm2 LVLs ap4: 5.9 cm LVLs ap2: 6.1 cm ESV(MOD-sp4): 31.4 ml ESV(MOD-sp2): 30.8 ml ESV(sp4-el): 29.4 ml ESV(sp2-el): 28.9 ml EF(MOD-sp4): 55.0 % EF(MOD-sp2): 56.7 % EF(sp4-el): 58.4 % SV(MOD-sp4): 38.3 ml SV(MOD-sp2): 40.4 ml SV(sp4-el): 41.4 ml LA dimension(2D): 4.5 cm LA A4 area: 23.0 cm2 RA A4 area: 11.3 cm2 Time Measurements MV dec time: 0.32 sec Doppler Measurements & Calculations MV E max aaron: 68.4 cm/sec Lat Peak E' Aaron: 7.1 cm/sec Med Peak E' Aaron: 4.9 cm/sec MV A max aaron: 82.9 cm/sec E/E' lat: 9.6 E/E' med: 14.0 MV E/A: 0.82 MV dec slope: 213.2 cm/sec2 Ao V2 max: 103.4 cm/sec LV V1 max: 89.3 cm/sec Ao max P.3 mmHg LV V1 max P.2 mmHg Ao V2 mean: 73.7 cm/sec LV V1 mean P.7 mmHg Ao mean P.5 mmHg LV V1 mean: 60.9 cm/sec Ao V2 VTI: 27.9 cm LV V1 VTI: 22.0 cm PA V2 max: 89.7 cm/sec TR max aaron: 268.7 cm/sec TR max P.9 mmHg ECHO/Echo Complete Interpretation Summary Left ventricular systolic function is normal. The estimated ejection fraction is 60 %. The left atrium is mildly enlarged. Mild focal mitral valve calcification of the anterior leaflet. Trivial mitral valve insufficiency. Trivial tricuspid valve insufficiency. Mild focal aortic valve calcification. Trivial pulmonic valve insufficiency. Right ventricular systolic pressure estimated to be 32 mmHg. Stage 2 diastolic dysfunction. Ordering Physician: Rai Solorzano Referring Physician: Katt Ramsay Performed By: Daisha Meeks, REBEKAH, RVT
[2022-02-07 11:24] LABS: Hematocrit 31.7 % (37-47); Hemoglobin 10.7 g/dL (12.0-15.0); Mean Corp Hgb Conc 33.8 g/dL (32-36); Mean Corpuscular Hgb 30.3 pg (27.0-32.0); Mean Corpuscular Volume 89.8 fL (81-99); Mean Platelet Vol. 11.6 fl (6.2-12.0); Platelet Count 239 K/mm3 (150-450); RBC Distribution Width CV 12.4 % (11.6-14.6); RBC Distribution Width SD 40.1 fl (35.1-43.9); Red Blood Count 3.53 M/mm3 (4.2-5.4); White Blood Count 9.1 K/mm3 (4.4-11.0)
--- NOTE | 2022-02-07 11:32 | CASEMGMT ---
According to the [facility] website, the following are in-network tertiary facilities: [facility], [place], [facility], [facility], [facility], and . Rigo KELLY CM
[2022-02-07 11:34] LABS: Anion Gap 4 (5-15); BUN 32 mg/dL (7-18); BUN/Creat Ratio 28.1 RATIO (10-20); Calcium,Total 9.6 mg/dL (8.5-10.1); Chloride 112 mmol/L (98-107); Creatinine, Serum 1.14 mg/dL (0.55-1.02); EST Glomerular Filtration Rate 49 mL/min (>60); Est Glom Filt Rate - Afr Amer 60 mL/min (>60); Estimated Creatinine Clearance 30.63 ml/min; Glucose 170 mg/dL (74-106); Potassium 4.5 mmol/L (3.5-5.1); Sodium Level 137 mmol/L (136-145)
--- NOTE | 2022-02-07 11:50 | RAD_ITS ---
EXAM: XR CHEST, 2 VIEWS CLINICAL INDICATION: chest pain; dyspnea -- Wet read to MD performing procedure TECHNIQUE: Frontal and lateral views of the chest. This report was created using Le[employer] software report generation technology. COMPARISON: XR Chest dated 08/26/2020 FINDINGS: LUNGS AND PLEURAL SPACES: Residual scarring/atelectasis of the left lower lobe. Lungs are otherwise clear. No pneumothorax. No effusion. HEART: Normal heart size. MEDIASTINUM: No mediastinal or hilar mass. BONES/JOINTS: No acute abnormality. SOFT TISSUES: Normal. RAD/Chest PA and Lateral IMPRESSION: No acute cardiopulmonary abnormality. No interval change. Electronically Signed: Kolton Salgado MD at 13:17 EDT ,
[2022-02-07] MEDS: Clopidogrel Bisulfate 75 MG Tablet PO (12:31)
[2022-02-07] MEDS: Aspirin 81 MG TAB.CHEW PO (12:31)
--- NOTE | 2022-02-07 15:45 | EKG12_ITS ---
Test Reason : PCI Blood Pressure : / mmHG Vent. Rate : 054 BPM Atrial Rate : 054 BPM P-R Int : 158 ms QRS Dur : 070 ms QT Int : 424 ms P-R-T Axes : 069 056 070 degrees QTc Int : 402 ms Sinus bradycardia Otherwise normal ECG Confirmed by TERI NICOLE, BRUCE ([id number]), business editor FELICIA YIN ([id number]) on 02/09/2022 10:31:11 AM Referred By: Sri Longoria Confirmed By:BRUCE WILLIAMSON MD
[2022-02-07] MEDS: 0.9% Normal Saline 1,000 ML 70 ML IV (16:11)
[2022-02-07 18:30] LABS: Color, Urine Straw (Yellow); Glucose, Dipstick Normal (Normal); Ketone-Dipstick Negative (Negative); Leukocyte Esterase-Dipstick Negative /ul (Negative); Nitrite-Dipstick Negative (Negative); Occult Blood-Urine 10 /ul (Negative); Protein-Dipstick 30 mg/dl (Negative); Urine Bilirubin Dipstick Negative (Negative); Urine Clarity Clear (Clear); Urine Urobilinogen Normal (Normal)
--- NOTE | 2022-02-07 19:16 | PCM.PN.CARD ---
Subjective Subjective The patient is status post diagnostic cardiac catheterization and subsequent PTCA/stent. She appears to be resting comfortably at this time. She has no new acute complaints. Objective Data Vital Signs: Vital Signs Temp Pulse Resp BP Pulse Ox O2 Del Method 97.8 F 64 18 133/69 H 99 Room Air 02/07/22 16:00 02/07/22 18:54 02/07/22 18:54 02/07/22 18:54 02/07/22 18:54 02/07/22 18:54 Oxygen Delivery Method Room Air Weight: 140 lb 6.951 oz Body Mass Index (BMI) 27.4 Intake & Output: Intake and Output for Last 24 Hours 02/05/22 02/06/22 02/07/22 23:59 23:59 23:59 Intake Total 350 / 350 Output Total 350 / 350 Balance 0 / 0 Lab / Micro Data Result Diagrams: 02/07/22 11:05 02/07/22 11:05 Labs: Laboratory Results - last 24 hr 02/07/22 11:05: WBC 9.1, RBC 3.53 L, Hgb 10.7 L, Hct 31.7 L, MCV 89.8, MCH 30.3, MCHC 33.8, RDW Std Deviation 40.1, RDW Coeff of [place] 12.4, Plt Count 239, MPV 11.6 02/07/22 11:05: APTT 27.0 02/07/22 11:05: Sodium 137, Potassium 4.5, Chloride 112 H, Carbon Dioxide 21.0, Anion Gap 4 L, BUN 32 H, Creatinine 1.14 H, Estim Creat Clear Calc 30.63, Est GFR (MDRD) Af Amer 60, Est GFR (MDRD) Non-Af 49 L, BUN/Creatinine Ratio 28.1 H, Glucose 170 H, Calcium 9.6 02/07/22 17:52: Urine Color Straw, Urine Clarity Clear, Urine pH 6.0, Ur Specific [place] 1.010, Urine Protein 30 H, Urine Glucose (UA) Normal, Urine Ketones Negative, Urine Occult Blood 10 H, Urine Nitrite Negative, Urine Bilirubin Negative, Urine Urobilinogen Normal, Ur Leukocyte Esterase Negative Cardiology Labs/Tests 02/07/22 11:05: WBC 9.1, RBC 3.53 L, Hgb 10.7 L, Hct 31.7 L, MCV 89.8, MCH 30.3, MCHC 33.8, Plt Count 239, MPV 11.6 02/07/22 11:05: APTT 27.0 02/07/22 11:05: Sodium 137, Potassium 4.5, Chloride 112 H, Carbon Dioxide 21.0, Anion Gap 4 L, BUN 32 H, Creatinine 1.14 H, Est GFR (MDRD) Af Amer 60, Est GFR (MDRD) Non-Af 49 L, BUN/Creatinine Ratio 28.1 H, Glucose 170 H, Calcium 9.6 02/07/22 17:52: Urine Color Straw, Urine Clarity Clear, Urine pH 6.0, Ur Specific [place] 1.010, Urine Protein 30 H, Urine Glucose (UA) Normal, Urine Ketones Negative, Urine Occult Blood 10 H, Urine Nitrite Negative, Urine Bilirubin Negative, Urine Urobilinogen Normal, Ur Leukocyte Esterase Negative Rhythm: Sinus rhythm EKG: Sinus rhythm/sinus bradycardia Cardiac Cath: CONCLUSIONS Normal Left Ventricular End Diastolic Pressure Normal LV size, wall motion,and systolic function LVEF: by LV gram 65 % [place] Multivessel CAD LAD: stent: patent RCA: stent: patent RECOMMENDATIONS Risk factor modification Medical therapy Interventional Cardiology consultation: regarding the need for additional catheter based diagnostic studies / PCI DESCRIPTION OF? PROCEDURE The patient arrived to the procedure lab. The risks and benefits of the procedure as well as a full description of our services here and current unavailability of surgical backup were fully explained to the patient and/or their significant other prior to the catheterization. The Timeout was completed, verifying the correct patient and procedure. The patient's procedural site was prepped and draped in the usual fashion. Local anesthetic was given subcutaneously to right ulnar region with Lidocaine 2%. Using a modified Seldinger technique, arterial access was obtained via the right ulnar artery, a 6Fr sheath was inserted.? Left Coronary Artery selective angiography was performed in multiple views using a 5 Fr. JL3.5 catheter. Left Ventriculography was performed in TOSCANO projection using a 5 Fr. Pigtail catheter. LV to AO pullback pressures were then recorded.The arterial sheath was pulled and a TR Band was applied for hemostasis CORONARY ANGIOGRAPHY DOMINANCE:? Right Dominant LEFT HEART ASSESSMENT Left Ventricular Ejection Fraction: by LV Gram 65 % Normal LV wall motion Normal Left Ventricular End Diastolic Pressure LVEDP: 4 mmHg LEFT MAIN: Angiographically normal LEFT ANTERIOR DESCENDING ARTERY: PROX LAD: Mild luminal irregularities MID LAD: Previously placed stent is patent DIAGONAL 1: Proximal - very small caliber vessel: 95 % Stenosis CIRCUMFLEX ARTERY: Mild luminal irregularities OM 1: Proximal - Mild luminal irregularities RIGHT CORONARY ARTERY: PROX RCA: 75 % Stenosis, Previously placed stent is patent RT PDA: Proximal - small caliber vessel: 50 - 75 % Stenosis AORTIC ROOT: Angiographically normal PCI: CONCLUSIONS Successful CLEMENT to pRCA RECOMMENDATIONS DESCRIPTION OF? PROCEDURE The patient arrived to the procedure lab. The risks and benefits of the procedure as well as a full description of our services here and current unavailability of surgical backup were fully explained to the patient and/or their significant other prior to the catheterization. The Timeout was completed, verifying the correct patient and procedure. The patient's procedural site was prepped and draped in the usual fashion. Local anesthetic was given subcutaneously to right ulnar region with Lidocaine 2% Using a modified Seldinger technique,arterial access was obtained via the right ulnar artery, a 6Fr sheath was inserted. Left Coronary Artery selective angiography was performed in multiple views using a 5 Fr. JL3.5 catheter. Left Ventriculography was performed in TOSCANO projection using a 5 Fr. Pigtail catheter. LV to AO pullback pressures were then recorded.The images were reviewed and options discussed. A decision was then made to proceed with an Intervention, IVUS or other adjunct procedure. ? ? JR4 Guide catheter was inserted and engaged into the RCA. [employer] [place] Guide wire was advanced to the RCA. Orsiro 2.5 x 13 Drug Eluting stent was inserted. Drug Eluting stent was advanced across the lesion in the right coronary, proximal. NC Emerge 2.5 x 12 Balloon catheter was inserted. Balloon catheter was advanced across lesion in the right coronary, proximal. Angiogram performed post balloon dilatation. ? The arterial sheath was pulled and a TR Band was applied for hemostasis INTERVENTION INFORMATION LESION SITE: RCA (Proximal) Lesion Complexity: High/C, chronic total occlusion: No, lesion at bifurcation: No, thrombus present: No, lesion length: 11 mm, culprit lesion: Yes, Previously treated lesion: No ?Pre Stenosis: 80 % Pre intervention TAHIR flow: 3 PROCEDURE: Drug Eluting Stent with post dilatation Post Stenosis: 0 %? Post intervention TAHIR flow: 3 Lesion Devices: Cardinal 6 Fr JR4 100cm Guide Catheter Ortega .014 BMW [place] Straight 190cm Thom Sci NC EMERGE MR [id number] BALLOON Radiography Diagnostic Testing: Radiology Impression Echocardiogram 02/07/22 10:31 Interpretation Summary Left ventricular systolic function is normal. The estimated ejection fraction is 60 %. The left atrium is mildly enlarged. Mild focal mitral valve calcification of the anterior leaflet. Trivial mitral valve insufficiency. Trivial tricuspid valve insufficiency. Mild focal aortic valve calcification. Trivial pulmonic valve insufficiency. Right ventricular systolic pressure estimated to be 32 mmHg. Stage 2 diastolic dysfunction. Ordering Physician: Rai Solorzano Referring Physician: Katt Ramsay Performed By: Daisha Meeks, RDCS, RVT Chest X-Ray 02/07/22 11:50 IMPRESSION: No acute cardiopulmonary abnormality. No interval change. Electronically Signed: Kolton Salgado MD at 13:17 EDT , Physical Exam Const alert, oriented x3 and no apparent distress Orientation / Consciousness: awake HEENT normocephalic, head/scalp atraumatic and hearing grossly normal bilaterally Eyes PERRL, EOMs intact bilaterally, conjunctivae normal and no scleral icterus Neck full ROM, supple and no JVD Carotids: normal carotid upstroke Resp normal respiratory effort and clear to auscultation bilaterally Cardio regular rate, regular rhythm, S1 normal heart sound and S2 normal heart sound GI normal to inspection, nondistended, normoactive bowel sounds Extremity no pedal edema Extremity Narrative: Right inguinal area: Femoral artery: Pulses 2+/4+: No bruit: No hematoma Skin no rashes or lesions noted Neuro oriented x3, moves all extremities, no focal motor deficits and no sensory deficits noted Psych mental status grossly normal Assessment & Plan Assessment/Plan (1) Angina pectoris: PLAN: The patient presents with symptoms of worsening angina pectoris. She is undergone noninvasive and invasive valuation the past. Today she underwent repeat noninvasive valuation with a stress nuclear imaging study. The results are noted below. It is noted that she had symptoms compatible with exertional angina pectoris, abnormal ECG changes, and abnormal myocardial perfusion changes. She subsequently underwent evaluation with diagnostic cardiac catheterization. This demonstrated progression of CAD in her LCx distribution. She subsequently underwent LCx PTCA/CLEMENT. (2) Abnormal stress test: PLAN: The patient did undergo a stress nuclear imaging study. The results are as noted. She has undergone additional evaluation with diagnostic cardiac catheterization and subsequent PCI as noted. (3) CAD (coronary artery disease): PLAN: The patient has a history of CAD. She has been on medical management. She states she is still taking her aspirin therapy and her clopidogrel/Plavix therapy. She states she cannot tolerate nitrates such as isosorbide mononitrate secondary to concerns of dizziness. However, she cannot tolerate nitroglycerin sublingual as needed which she has been using for her symptoms. She states she is no longer on her beta-blockers. She is unsure why. She is now that is post diagnostic cardiac catheterization and LCx PCI. She will continue medical therapy. (4) S/P PTCA (percutaneous transluminal coronary angioplasty): PLAN: The patient has a history of previous PCI as noted. Her LAD and RCA stents were patent. She developed angiographically significant appearing CAD in the LCx distribution. She underwent additional LCx PTCA/CLEMENT. She will continue medical therapy. (5) HLD (hyperlipidemia): QUALIFIERS: Hyperlipidemia type: unspecified Qualified Code(s): E78.5 - Hyperlipidemia, unspecified PLAN: The patient should continue risk factor modification and medical management with lipid-lowering therapy unless otherwise not tolerated. (6) Essential hypertension: PLAN: The patient's blood pressure will be followed. Her medicines can be adjusted accordingly. (7) Diabetes mellitus: PLAN: The patient is on oral hypoglycemic agents. Her medical therapy will be continued. (8) Renal insufficiency: PLAN: The patient is noted to have a history of chronic renal insufficiency. She will need to continue medical management with adjustment in and around her renal function. She will continue medical management and follow-up. Addt'l Comments The patient's case has been discussed and reviewed with the patient. This note was generated using a voice recognition system and there may be incorrect words, spelling or punctuation that were not noted when reviewing the office note prior to saving. Procedure Criteria Type of Procedure Procedure Type: Elective Elective Risks - COVID COVID Risk Discussion: The surgeon/proceduralist and patient have discussed in detail the risk of exposure to and/or potential harm posed by the COVID-19 virus with having a surgery/procedure at this time versus the risk of delaying the surgery/procedure. It is not possible to know either the risk of delaying the surgery or procedure or chance of getting an infection with perfect accuracy, but a joint decision was made between the patient and the surgeon/proceduralist to proceed at this time with the scheduled surgery/procedure as indicated on the consent form.
--- NOTE | 2022-02-07 21:35 | NURSING ---
patient up and ambulating in hallway w/ primary nurse, no bleeding at r. groin cath site, patient off bedrest-now ind. to ambulate in room
[2022-02-07] MEDS: Metoprolol Tartrate 25 MG Tablet PO (21:46)
[2022-02-07] MEDS: Atorvastatin Calcium 40 MG Tablet PO (21:46)
[2022-02-08 03:00] VITALS: PULSE 62
[2022-02-08 03:52] VITALS: BP 155/60; PULSE 60; RESP 16; TEMP 36.9; O2SAT 96
[2022-02-08 05:33] LABS: Absolute Lymphocyte Count 1.97 X10^3/uL (0.83-4.51); Absolute Neutrophil Count 8.2 X10^3/uL (2.0-7.7); Basophil# 0.12 X10^3/uL; Eosinophil# 0.26 X10^3/uL; Eosinophils% 2.3 % (0-5); Hematocrit 32.1 % (37-47); Hemoglobin 10.9 g/dL (12.0-15.0); Lymphocyte # 1.97 X10^3/ul (0.83-4.51); Lymphocyte % 17.1 % (19-41); Mean Corpuscular Hgb 30.4 pg (27.0-32.0); Mean Corpuscular Volume 89.4 fL (81-99); Monocyte# 0.86 X10^3/uL; Monocyte% 7.5 % (0-10); NRBC Flagged by Analyzer 0 % (0-5); Neutrophil # 8.24 X10^3/uL (2.7-7.7); Neutrophil % 71.6 % (47-70); Platelet Count 259 K/mm3 (150-450); RBC Distribution Width CV 12.5 % (11.6-14.6); RBC Distribution Width SD 40.8 fl (35.1-43.9); Red Blood Count 3.59 M/mm3 (4.2-5.4); White Blood Count 11.5 K/mm3 (4.4-11.0)
[2022-02-08 05:59] LABS: ALB/GLOB Ratio 1.1 RATIO (0.9-2.4); AST(SGOT) 16 U/L (15-37); Alanine Aminotransfer ALT/SGPT 15 U/L (13-56); Albumin, Serum 3.4 g/dL (3.2-5.0); Alkaline Phosphatase 108 U/L (45-117); Anion Gap 5 (5-15); BUN 31 mg/dL (7-18); BUN/Creat Ratio 26.5 RATIO (10-20); Calcium,Total 9.7 mg/dL (8.5-10.1); Chloride 109 mmol/L (98-107); Creatinine, Serum 1.17 mg/dL (0.55-1.02); EST Glomerular Filtration Rate 48 mL/min (>60); Est Glom Filt Rate - Afr Amer 58 mL/min (>60); Estimated Creatinine Clearance 29.84 ml/min; Glucose 108 mg/dL (74-106); Potassium 4.6 mmol/L (3.5-5.1); Protein, Total 6.4 g/dL (6.4-8.2); Sodium Level 136 mmol/L (136-145)
[2022-02-08 07:01] VITALS: PULSE 69
--- NOTE | 2022-02-08 07:12 | CRPHASE1 ---
Patient Communication Former Patient:: Phase II PHII Cardiac Rehab Discussed with Patient:: Yes Guide to Cardiac Rehab Given to Patient:: Yes Cardiac Rehab Facility Choice List Given to Patient:: Yes Choice Program [facility] CR PHII:: Communication Given to CR Director Of Public Health:: Albert Adams Refer Phase II Cardiac Rehab:: Yes Sessions:: 36 sessions - 3 days/wk, 12 weeks Cardiac Rehabilitation Info Cardiac Rehabilitation Program Information: Cardiac Rehabilitation is important for patients like you who are recovering from a heart problem. Cardiac rehabilitation programs are recognized as integral to the continued care of the patient with coronary heart disease. The cardiac rehabilitation program is designed to optimize a patient's physical, psychological, and social functioning. Health farm or ranch animal caretaker work in cardiac rehabilitation programs and assist you with getting the treatments you need to get stronger and healthier - like exercise, healthy eating habits, and medications. Cardiac rehabilitation has been show to help people with heart problems live longer and have better life enjoyment than people who do not go to cardiac rehabilitation. Please contact the Cardiac Rehabilitation Program at [facility] at in two weeks if you have not heard from them.
--- NOTE | 2022-02-08 07:14 | CRPH1.INSTRU ---
General Education CAD and cardiac anatomy and function:: Patient communicates acknowledgment Explanation of diagnoses and procedures:: Patient communicates acknowledgment Sign/Symptoms of [place]:: Patient communicates acknowledgment Antiplatelet therapy: Patient communicates acknowledgment Proper use of NTG-SL: Patient communicates acknowledgment Emergency procedures and activation of EMS: Patient communicates acknowledgment Compliance of all prescribed medications: Patient communicates acknowledgment Smoking Patient Nicotine/Smoking Risk Factors Are:: Non-smoker Recommendations Include:: Previous smoker; encourage continued cessation Nicotine/Smoking Response Code:: Patient communicates acknowledgment Dyslipidemia Recommendations Include:: Lipid profile not available Dyslipidemia Response Code:: Patient communicates acknowledgment Overweight/Obesity Patient Overweight/Obesity Risk Factors Are:: BMI Normal [24-29 & > 65 years old] Recommendations Include:: Exercise 5-7 times/week Overweight/Obesity:: Patient communicates acknowledgment Hypertension Recommendations Include:: Maintain BP <130/85, BP <130/80 if diabetic, DASH dietary guidelines, Decrease/maintain normal body weight Hypertension:: Patient communicates acknowledgment Heart Disease Patient Heart Disease Risk Factors Are:: Previous cardiac event Heart Disease Response Code:: Patient communicates acknowledgment Diabetes Patient Diabetes Risk Factors Are:: Elevated blood sugars Recommendations Include:: Maintain fasting blood sugars 70-110 md/dL, Monitor blood sugar as prescribed, Diabetic dietary guidelines Diabetes:: Patient communicates acknowledgment Sedentary Recommendations Include:: Aerobic exercise 5-7 times/week for 20-30 minutes continuously, Benefits of regular exercise, Discussed home walking program, Monitored Outpatient Cardiac Rehab Sedentary Response Code:: Patient communicates acknowledgment Stress Recommendations Include:: Stress management techniques Stress Response Code:: Patient communicates acknowledgment
--- NOTE | 2022-02-08 09:01 | PCM.DC ---
Discharge Instructions Diet Discharge Diet: Low fat / Low cholesterol and 1800 Calorie Control Diet Activity Discharge Activity: May Not Drive (x 48 hours), May Shower (Today) and May Take a Tub Bath (in 7 days) May resume sexual activity in: 1-2 weeks Weight Bearing Status: - (avoid heavy exertional activity x 1 week then resume normal activity as tolerated) Dressing / Incision Call your doctor if your incision/area has: Continuous Slow Oozing, Sudden Increased Bleeding, Increased Pain/ Swelling, Increased Redness, Foul Smelling Discharge and Swelling at the incision site Call your doctor if you observe: Fever of 101 or Higher, Shortness of breath, Fainting spells, Swelling in the ankles, Chest pain, Increased palpitations (irregular heartbeat), Calf discomfort and Uncontrolled pain Remove Dressing in: today Cleanse incision/area with: Soap & Water Follow Up Care Please Follow Up With: Rai Solorzano MD When: [facility] to arrange outpatient follow up appointment Test Results: Test results from this visit will be discussed in further detail at your follow-up appointment, if applicable. Discharge Plan Admission Admit Date/Time: 02/07/22 10:29 Primary Reason for Your Visit: Abnormal Stress test Attending Provider: Rai Solorzano Primary Care Provider: Katt Ramsay Consulting Providers: Sri Longoria NP Discharge Orders/Prescriptions Prescriptions: New atorvastatin 40 mg Tablet 40 mg PO QHS Qty: 90 3RF clopidogrel 75 mg Tablet 75 mg PO DAILY Qty: 90 3RF metoprolol tartrate 25 mg Tablet 25 mg PO BID Qty: 180 3RF Continued cholecalciferol (vitamin D3) 50 mcg (2,000 unit) capsule 50 mcg PO DAILY aspirin 81 mg tablet,delayed release (DR/EC) 81 mg PO DAILY@0800 Label Comments: heart health lisinopril 20 MG tablet 20 mg PO DAILY glipizide 2.5 tablet extended release 24hr 5 mg PO DAILY Kerendia 10 mg tablet 10 mg PO DAILY Label Comments: TAKE 1 TABLET BY MOUTH EVERY DAY FOR 30 DAYS nitroglycerin 0.4 mg tablet, sublingual 0.4 mg sublingual Q5M PRN (Reason: Chest Pain) Qty: 25 6RF Discontinued isosorbide mononitrate 30 mg tablet extended release 24 hr 30 mg PO DAILY Qty: 30 6RF Referrals / Follow Up: Katt Ramsay MD [Primary Care Provider] - Rai Solorzano MD [Med Staff - Active Staff] - Disposition Disposition (needs filled in before D/C Order can be placed): Home, Self Care
--- NOTE | 2022-02-08 09:07 | DS.PCM_ITS ---
Providers Date of Admission: 02/07/22 Date of Discharge: 02/08/22 Primary Care Physician: Dr. Katt Ramsay MD Reason For Visit: ABNORMAL STRESS TEST,CHEST PAIN Diagnosis Discharge Diagnosis (1) Angina pectoris: Status: Acute Code(s): I20.9 - Angina pectoris, unspecified Plan: The patient presents with symptoms of worsening angina pectoris. She is undergone noninvasive and invasive valuation the past. Today she underwent repeat noninvasive valuation with a stress nuclear imaging study. The results are noted below. It is noted that she had symptoms compatible with exertional angina pectoris, abnormal ECG changes, and abnormal myocardial perfusion changes. She subsequently underwent evaluation with diagnostic cardiac catheterization. This demonstrated progression of CAD in her LCx distribution. She subsequently underwent LCx PTCA/CLEMENT. (2) Abnormal stress test: Status: Acute Code(s): R94.39 - Abnormal result of other cardiovascular function study Plan: The patient did undergo a stress nuclear imaging study. The results are as noted. She has undergone additional evaluation with diagnostic cardiac catheterization and subsequent PCI as noted. (3) CAD (coronary artery disease): Status: Acute Code(s): I25.10 - Atherosclerotic heart disease of kaw coronary artery without angina pectoris Plan: The patient has a history of CAD. She has been on medical management. She states she is still taking her aspirin therapy and her clopidogrel/Plavix therapy. She states she cannot tolerate nitrates such as isosorbide mononitrate secondary to concerns of dizziness. However, she cannot tolerate nitroglycerin sublingual as needed which she has been using for her symptoms. She states she is no longer on her beta-blockers. She will return to beta- jenise therapy. She is now that is post diagnostic cardiac catheterization and LCx PCI. She will continue medical therapy. (4) S/P PTCA (percutaneous transluminal coronary angioplasty): Status: Acute Code(s): Z98.61 - Coronary angioplasty status Plan: The patient has a history of previous PCI as noted. Her LAD and RCA stents were patent. She developed angiographically significant appearing CAD in the LCx distribution. She underwent additional LCx PTCA/CLEMENT. She will continue medical therapy. (5) HLD (hyperlipidemia): Status: Chronic Code(s): E78.5 - Hyperlipidemia, unspecified Qualifiers: Hyperlipidemia type: unspecified Qualified Code(s): E78.5 - Hyperlipidemia, unspecified Plan: The patient should continue risk factor modification and medical management with lipid-lowering therapy unless otherwise not tolerated. (6) Essential hypertension: Status: Chronic Code(s): I10 - Essential (primary) hypertension Plan: The patient's blood pressure will be followed. Her medicines can be adjusted accordingly. (7) Diabetes mellitus: Status: Acute Code(s): E11.9 - Type 2 diabetes mellitus without complications Plan: The patient is on oral hypoglycemic agents. Her medical therapy will be continued. (8) Renal insufficiency: Status: Acute Code(s): N28.9 - Disorder of kidney and ureter, unspecified Plan: The patient is noted to have a history of chronic renal insufficiency. She will need to continue medical management with adjustment in and around her renal function. She will continue medical management and follow-up. Medications at Discharge Home Medications lisinopril 20 mg tablet 20 mg PO DAILY bp 02/10/15 glipizide 2.5 mg tablet, extended release 24 hr 5 mg PO DAILY 03/31/19 aspirin 81 mg tablet,delayed release 81 mg PO DAILY@0800 pain 02/18/20 cholecalciferol (vitamin D3) 50 mcg (2,000 unit) capsule 50 mcg PO DAILY 12/09/20 nitroglycerin 0.4 mg sublingual tablet 0.4 mg sublingual Q5M PRN Chest Pain #25 tabs 01/27/22 finerenone 10 mg tablet (Kerendia) 10 mg PO DAILY 02/07/22 atorvastatin 40 mg tablet 40 mg PO QHS #90 tabs 02/08/22 clopidogrel 75 mg tablet 75 mg PO DAILY #90 tabs 02/08/22 metoprolol tartrate 25 mg tablet 25 mg PO BID #180 tabs 02/08/22 Hospital Course Operations None Procedures Cardiac catheterization and - (Cardiac intervention) Summary of Care Provided Minutes Spent on Discharge: 45 Hospital Course: The patient presented to the [facility] for an outpatient stress nuclear imaging study. The patient underwent her stress nuclear imaging study with concerns of stress-induced angina pectoris, an abnormal ECG response, and an abnormal myocardial perfusion response. The patient was separately brought into the hospital for further inpatient evaluation and care. She underwent diagnostic cardiac catheterization. The cardiac catheterization noted her LAD and RCA stents to be patent. However, the patient had progression of LCx disease which appear to be angiographically significant. She underwent LCx PTCA/CLEMENT. She was monitored overnight. This day she appeared to be symptomatically and hemodynamically stable for release home for continued outpatient follow-up. Of note, status post her PCI procedure, she underwent angiographic evaluation prior to placement of a arterial closure device. This did demonstrate findings compatible with peripheral arterial disease in the right lower extremity. Thus she is going to be referred to peripheral vascular surgery as an outpatient for further evaluation and care. The above has been discussed and reviewed with the patient. She was agreeable to this approach. Physical Exam Const alert, oriented x3 and no apparent distress Orientation / Consciousness: awake HEENT normocephalic, head/scalp atraumatic and hearing grossly normal bilaterally Eyes PERRL, EOMs intact bilaterally, conjunctivae normal and no scleral icterus Neck full ROM, supple and no JVD Carotids: normal carotid upstroke Resp normal respiratory effort and clear to auscultation bilaterally Cardio regular rate, regular rhythm, S1 normal heart sound and S2 normal heart sound Peripheral Pulses: femoral pulses present right (No obvious bruit: No obvious hematoma) 1+ GI normal to inspection, nondistended, normoactive bowel sounds Extremity no pedal edema Extremity Narrative: Right inguinal area: Femoral artery: Pulses 2+/4+: No bruit: No hematoma Skin no rashes or lesions noted Neuro oriented x3, moves all extremities, no focal motor deficits and no sensory deficits noted Psych mental status grossly normal Weight / BMI Weight Weight: 140 lb 6.951 oz Body Mass Index (BMI) 27.4 ABG / Lab / Microbiology Data Result Diagrams: 02/08/22 04:34 02/08/22 04:34 Laboratory: Laboratory Results - last 24 hr 02/07/22 11:05: WBC 9.1, RBC 3.53 L, Hgb 10.7 L, Hct 31.7 L, MCV 89.8, MCH 30.3, MCHC 33.8, RDW Std Deviation 40.1, RDW Coeff of Titus 12.4, Plt Count 239, MPV 11.6 02/07/22 11:05: APTT 27.0 02/07/22 11:05: Sodium 137, Potassium 4.5, Chloride 112 H, Carbon Dioxide 21.0, Anion Gap 4 L, BUN 32 H, Creatinine 1.14 H, Estim Creat Clear Calc 30.63, Est GFR (MDRD) Af Amer 60, Est GFR (MDRD) Non-Af 49 L, BUN/Creatinine Ratio 28.1 H, Glucose 170 H, Calcium 9.6 02/07/22 17:52: Urine Color Straw, Urine Clarity Clear, Urine pH 6.0, Ur Specific Lincoln 1.010, Urine Protein 30 H, Urine Glucose (UA) Normal, Urine Ketones Negative, Urine Occult Blood 10 H, Urine Nitrite Negative, Urine Bilirubin Negative, Urine Urobilinogen Normal, Ur Leukocyte Esterase Negative 02/08/22 04:34: WBC 11.5 H, RBC 3.59 L, Hgb 10.9 L, Hct 32.1 L, MCV 89.4, MCH 30.4, MCHC 34.0, RDW Std Deviation 40.8, RDW Coeff of Titus 12.5, Plt Count 259, MPV 12.0, Immature Gran % (Auto) 0.500, Neut % (Auto) 71.6 H, Lymph % (Auto) 17. 1 L, Hidalgo % (Auto) 7.5, Eos % (Auto) 2.3, Baso % (Auto) 1.0, Absolute Neuts ( auto) 8.2 H, Absolute Lymphs (auto) 1.97, Nucleated RBC % 0 02/08/22 04:34: Sodium 136, Potassium 4.6, Chloride 109 H, Carbon Dioxide 22.0, Anion Gap 5, BUN 31 H, Creatinine 1.17 H, Estim Creat Clear Calc 29.84, Est GFR (MDRD) Af Amer 58 L, Est GFR (MDRD) Non-Af 48 L, BUN/Creatinine Ratio 26.5 H, Glucose 108 H, Calcium 9.7, Total Bilirubin 0.60, AST 16, ALT 15, Alkaline Phosphatase 108, Total Protein 6.4, Albumin 3.4, Globulin 3.0, Albumin/Globulin Ratio 1.1 Radiography Diagnostic Testing: Radiology Impression Echocardiogram 02/07/22 10:31 Interpretation Summary Left ventricular systolic function is normal. The estimated ejection fraction is 60 %. The left atrium is mildly enlarged. Mild focal mitral valve calcification of the anterior leaflet. Trivial mitral valve insufficiency. Trivial tricuspid valve insufficiency. Mild focal aortic valve calcification. Trivial pulmonic valve insufficiency. Right ventricular systolic pressure estimated to be 32 mmHg. Stage 2 diastolic dysfunction. Ordering Physician: Rai Solorzano Referring Physician: Katt Ramsay Performed By: Daisha Meeks, RDCS, RVT Chest X-Ray 02/07/22 11:50 IMPRESSION: No acute cardiopulmonary abnormality. No interval change. Electronically Signed: Kolton Salgado MD at 13:17 EDT , D/C Instructions Discharge Diet: Low fat / Low cholesterol and 1800 Calorie Control Diet May resume sexual activity in: 1-2 weeks Weight Bearing Status: - (avoid heavy exertional activity x 1 week then resume normal activity as tolerated) Call your doctor if your incision/area has: Continuous Slow Oozing, Sudden Increased Bleeding, Increased Pain/ Swelling, Increased Redness, Foul Smelling Discharge and Swelling at the incision site Call your doctor if you observe: Fever of 101 or Higher, Shortness of breath, Fainting spells, Swelling in the ankles, Chest pain, Increased palpitations (irregular heartbeat), Calf discomfort and Uncontrolled pain Cleanse incision/area with: Soap & Water Please Follow Up With: Rai Solorzano MD When: [facility] to arrange outpatient follow up appointment Meaningful Use Info Meaningful Use Diagnoses (Choose all that apply): None applicable Discharge Plan Admission Admit Date/Time: 02/07/22 10:29 Primary Reason for Your Visit: Abnormal Stress test Attending Provider: Rai Solorzano Primary Care Provider: Katt Ramsay Consulting Providers: Sri Longoria NP Discharge Orders/Prescriptions Prescriptions: New atorvastatin 40 mg Tablet 40 mg PO QHS Qty: 90 3RF clopidogrel 75 mg Tablet 75 mg PO DAILY Qty: 90 3RF metoprolol tartrate 25 mg Tablet 25 mg PO BID Qty: 180 3RF Continued cholecalciferol (vitamin D3) 50 mcg (2,000 unit) capsule 50 mcg PO DAILY aspirin 81 mg tablet,delayed release (DR/EC) 81 mg PO DAILY@0800 Label Comments: heart health lisinopril 20 MG tablet 20 mg PO DAILY glipizide 2.5 tablet extended release 24hr 5 mg PO DAILY Kerendia 10 mg tablet 10 mg PO DAILY Label Comments: TAKE 1 TABLET BY MOUTH EVERY DAY FOR 30 DAYS nitroglycerin 0.4 mg tablet, sublingual 0.4 mg sublingual Q5M PRN (Reason: Chest Pain) Qty: 25 6RF Discontinued isosorbide mononitrate 30 mg tablet extended release 24 hr 30 mg PO DAILY Qty: 30 6RF Referrals / Follow Up: Katt Ramsay MD [Primary Care Provider] - Rai Solorzano MD [Med Staff - Active Staff] - Disposition Disposition (needs filled in before D/C Order can be placed): Home, Self Care
[2022-02-08 09:23] VITALS: BP 134/50; PULSE 67; RESP 18; TEMP 36.2; O2SAT 98
[2022-02-08 09:26] VITALS: BP 134/50; PULSE 67
[2022-02-08] MEDS: Lisinopril 20 MG Tablet PO (09:26)
[2022-02-08] MEDS: Metoprolol Tartrate 25 MG Tablet PO (09:26)
[2022-02-08] MEDS: Clopidogrel Bisulfate 75 MG Tablet PO (09:26)
[2022-02-08] MEDS: Aspirin 81 MG TAB.CHEW PO (09:27)
[2022-02-08] MEDS: glipiZIDE 5 MG Tablet PO (09:27)
--- NOTE | 2022-02-08 10:00 | EKG12_ITS ---
Test Reason : AM EKG Blood Pressure : / mmHG Vent. Rate : 060 BPM Atrial Rate : 060 BPM P-R Int : 152 ms QRS Dur : 070 ms QT Int : 398 ms P-R-T Axes : 068 048 069 degrees QTc Int : 398 ms Normal sinus rhythm Normal ECG When compared with ECG of 07-FEB-2022 16:15, MANUAL COMPARISON REQUIRED, DATA IS UNCONFIRMED Confirmed by ENOC NICOLE, KOKO ([id number]), editor producer FELICIA YIN ([id number]) on 02/09/2022 10:28:52 AM Referred By: Sri Longoria Confirmed By:KOKO STUBBS MD
--- NOTE | 2022-02-08 13:11 | CL.I_ITS ---
Patient Name: VALERIANO CROSS Study Date: 02/07/2022 Performing: Asha Adams MD Ht: 59 inches 149.86 cm : 1945 Wt: 140.43 lbs 63.7 kg Age: 76 Gender: female BSA: 1.59 PROCEDURE(S) PERFORMED IC12-(49625/C9600)CLEMENT W/WO PTCA, SINGLE CORONARY ARTERY CLINICAL PROFILE AND CO-MORBIDITIES Indications: Worsening Angina, Suspected CAD Heart Failure: None Stress/Imaging Date: 02/07/2022 Angina Classification Anginal Classification w/in 2 Weeks: CCS III CAD Presentations: Unstable angina. CONCLUSIONS Successful PCI of mLCx with CLEMENT RECOMMENDATIONS DESCRIPTION OF PROCEDURE The patient arrived to the procedure lab. The risks and benefits of the procedure as well as a full description of our services here and current unavailability of surgical backup were fully explained to the patient and/or their significant other prior to the catheterization. The Timeout was completed, verifying the correct patient and procedure. The patient's procedural site was prepped and draped in the usual fashion. Local anesthetic was given subcutaneously to right groin region with Lidocaine 2% Using a modified Seldinger technique,arterial access was obtained via the right femoral artery, a 4Fr sheath was inserted Left Coronary Artery selective angiography was performed in multiple views using a 4 Fr. JL5 catheter. Right Coronary Artery selective angiography was then performed in multiple views using a 4 Fr. 3DRC catheter. Left Coronary Artery selective angiography was performed in multiple views using a 4 Fr. JL6 catheter. Left Ventriculography was performed in TOSCANO projection using a 4 Fr. Pigtail catheter. LV to AO pullback pressures were then recorded.The images were reviewed and options discussed. A decision was then made to proceed with an Intervention, IVUS or other adjunct procedure. Arterial sheath was exchanged for a 6 Fr Sheath. xb3.0 Guide catheter was inserted and engaged into the LCA. bmw Guide wire was advanced to the om1 3.0x15 emerge Balloon catheter was inserted. Balloon catheter was advanced across lesion in the circumflex, mid. Angiogram performed pre balloon dilatation. PTCA balloon inflated at 6 atms for 30 secs. PTCA balloon inflated at 8 atms for 14 secs. Angiogram performed post balloon dilatation. 3.0x15 [facility] Drug Eluting stent was inserted. Drug Eluting stent was advanced across the lesion in the circumflex, mid. Angiogram performed pre stent deployment. Angiogram performed post stent deployment. runthrough Guide wire was advanced to the Circumflex. 2.0x12 emerge Balloon catheter was inserted. over runthrough runthrough Guide wire was repositioned to the 1st OM bmw Guide wire was repositioned to the Circumflex 2.0x12 emerge Balloon catheter was repositioned onto bmw wire and advanced across the leison Angiogram performed post balloon dilatation. 3.0x12 emerge Balloon catheter was inserted. on runthrough Balloon catheter was advanced across lesion in the circumflex, mid. Angiogram performed pre balloon dilatation. Angiogram performed post balloon dilatation. Contrast was injected through the sheath and the Right Iliac and Femoral artery were assessed for possible closure device. The arterial sheath was pulled and a Starclose closure device was deployed for hemostasis INTERVENTION INFORMATION LESION SITE: Circumflex (Mid) Lesion Complexity: High/C, chronic total occlusion: No, lesion at bifurcation: Yes, thrombus present: No, lesion length: 12 mm, culprit lesion: Yes, Previously treated lesion: No Pre Stenosis: 80 % Pre intervention TAHIR flow: 3 PROCEDURE: Drug Eluting Stent with pre and post dilatation The stent was deployed from the mid LCx into OM1. The stent struts weere crossed and kissing balloon inflation was performed. Post Stenosis: 0 % Post intervention TAHIR flow: 3 Lesion Devices: Ortega .014 BMW [place] Straight 190cm Cordis 6 Fr XB3.0 100cm Guide Catheter Thom Sci EMERGE MR 3.00x15 BALLOON Biotronik [facility] MR CLEMENT 3.0x15 Terumo .014 Runthrough Extra Floppy 180cm straight Thom Sci EMERGE MR 2.00x12 BALLOON Thom Sci EMERGE MR 3.00x12 BALLOON COMPLICATIONS No Complications PROCEDURE MEDICATIONS Versed 1 mg IV Versed 1 mg IV Fentanyl 50 mcg IV Oxygen: 2 L/min via nasal cannula Heparin 4000 unit(s) IV 02/07/2022 15:02:11 SUMMARY OF HEMODYNAMIC DATA Time AIR REST ECG 14:04:31 AO 180/63 (106) SA 14:27:44 LV 178/9, 23 14:48:29 LV 176/-1, 19 14:48:37 LVp 174/5, 18 14:48:51 AOp 178/59 (106) 14:48:58 AIR REST 15:49:19 Signed By Asha Adams MD On 02/08/2022 13:11:02 Asha Adams MD
--- NOTE | 2022-02-13 12:42 | CL.D_ITS ---
Patient Name: VALERIANO CROSS Study Date: 02/07/2022 Performing: Rai Solorzano MD Ht: 59 inches 149.86 cm : 1945 Wt: 140.6 lbs 63.7 kg Age: 76 Gender: female BSA: 1.59 PROCEDURE(S) PERFORMED DC02-(66824)LHC/COR IC12-(87684/C9600)CLEMENT W/WO PTCA, SINGLE CORONARY ARTERY CLINICAL PROFILE AND INDICATIONS Indications: Worsening Angina, Suspected CAD Heart Failure: None Stress/Imaging Date: 02/07/2022 Angina Classification Anginal Classification w/in 2 Weeks: CCS III CAD Presentations: Unstable angina. CONCLUSIONS Ione Multivessel CAD LAD: stent: patent RCA: stents: patent RECOMMENDATIONS Risk factor modification Medical therapy Referred for immediate PCI DESCRIPTION OF PROCEDURE The patient arrived to the procedure lab. The risks and benefits of the procedure as well as a full description of our services here and current unavailability of surgical backup were fully explained to the patient and/or their significant other prior to the catheterization. The Timeout was completed, verifying the correct patient and procedure. The patient's procedural site was prepped and draped in the usual fashion. Local anesthetic was given subcutaneously to right groin region with Lidocaine 2%. Using a modified Seldinger technique, arterial access was obtained via the right femoral artery, a 4Fr sheath was inserted Left Coronary Artery selective angiography was performed in multiple views using a 4 Fr. JL5 catheter. Right Coronary Artery selective angiography was then performed in multiple views using a 4 Fr. 3DRC catheter. Left Coronary Artery selective angiography was performed in multiple views using a 4 Fr. JL6 catheter. Left Ventriculography was performed in TOSCANO projection using a 4 Fr. Pigtail catheter. LV to AO pullback pressures were then recorded.Contrast was injected through the sheath and the Right Iliac and Femoral artery were assessed for possible closure device.The arterial sheath was pulled and a Starclose closure device was deployed for hemostasis CORONARY ANGIOGRAPHY DOMINANCE: Right Dominant LEFT HEART ASSESSMENT Left Ventricular Ejection Fraction: Not assessed Elevated Left Ventricular End Diastolic Pressure LVEDP: 19 mmHg LEFT ANTERIOR DESCENDING ARTERY: Mild luminal irregularities PROX LAD: 25 % Stenosis MID LAD: diffuse: 25 % Stenosis DIAGONAL 1: Proximal - very small caliber vessel: subtotally occluded CIRCUMFLEX ARTERY: Mild luminal irregularities MID CIRC: 90 % Stenosis DISTAL CIRC: 25 % Stenosis OM 1: Proximal - very small caliber vessel: proximal: 75 % Stenosis OM 2: Distal - bifurcating branches: diffuse: 50 % Stenosis RIGHT CORONARY ARTERY: Mild luminal irregularities RT PDA: Proximal - small caliber vessel: proximal: 75 % Stenosis COMPLICATIONS No Complications PROCEDURE MEDICATIONS Versed 1 mg IV Versed 1 mg IV Fentanyl 50 mcg IV Oxygen: 2 L/min via nasal cannula Heparin 4000 unit(s) IV 02/07/2022 15:02:11 SUMMARY OF HEMODYNAMIC DATA Time AIR REST ECG 14:04:31 AO 180/63 (106) SA 14:27:44 LV 178/9, 23 14:48:29 LV 176/-1, 19 14:48:37 LVp 174/5, 18 14:48:51 AOp 178/59 (106) 14:48:58 AIR REST 15:49:19 Signed By Rai Solorzano MD On 02/13/2022 12:41:36 Rai Solorzano MD
== END 2022-02-08 09:07 | disposition home or self-care (01) ==
LOC: PCU 10:36
PROVIDERS: Admitting Provider Internal Medicine Cardiovascular Disease; PCP Family Medicine; Visit Provider Internal Medicine Cardiovascular Disease
DX: I25.110 Atherosclerotic heart disease of native coronary artery with unstable angina pectoris (principal); J44.9 Chronic obstructive pulmonary disease, unspecified; E11.43 Type 2 diabetes mellitus with diabetic autonomic (poly)neuropathy; R94.39 Abnormal result of other cardiovascular function study; Z87.891 Personal history of nicotine dependence; Z79.84 Long term (current) use of oral hypoglycemic drugs; Z79.82 Long term (current) use of aspirin; E78.5 Hyperlipidemia, unspecified; I10 Essential (primary) hypertension; I25.2 Old myocardial infarction; K21.9 Gastro-esophageal reflux disease without esophagitis; Z79.899 Other long term (current) drug therapy; R00.1 Bradycardia, unspecified; I08.3 Combined rheumatic disorders of mitral, aortic and tricuspid valves; Z82.49 Family history of ischemic heart disease and other diseases of the circulatory system; Z95.5 Presence of coronary angioplasty implant and graft; R07.9 Chest pain, unspecified; R06.09 Other forms of dyspnea
CPT/HCPCS: 36415; 71046; 78452; 80048; 80053; 81002; 85025; 85027; 85730; 92928; 93005; 93017; 93306; 93454; 99152; 99153; 99218; A9500; C1874; J7030; Q9967; A4216; C1725; C1760; C1769; C1887; C1894; C9600; G0378

== ENCOUNTER → 2022-03-15 | Outpatient (CLI) | payer MEDICARE, SELFPAY ==
--- NOTE | 2022-03-15 09:49 | ART_ITS ---
Reason For Study: Decreased Pedal Pulses Procedure A bilateral lower extremity continuous wave Doppler with analog waveform analysis,segmental pressures,and ankle brachial indexes without exercise. Left Segmental Pressures Left brachial= 183mmHg. Left thigh = >254mmHg. Left calf = 164mmHg. Left posterior tibial artery = 159mmHg. Left dorsalis pedis artery = 175mmHg. Left digit = 79 mmHg. The left posterior tibial artery waveforms are biphasic. The left dorsalis pedis waveforms are biphasic. Right Segmental Pressures Right brachial= 188mmHg. Right thigh = >254mmHg. Right calf = 201mmHg. Right posterior tibial artery = 194mmHg. Right dorsalis pedis artery = 165mmHg. Right digit = 94 mmHg. The right posterior tibial artery waveforms are monophasic. The right dorsalis pedis waveforms are biphasic. Indices The right ankle brachial index by the posterior tibial artery is 1.03. The right ankle brachial index by the dorsalis pedis is 0.88. The right digital-brachial index is 0.50. The left ankle brachial index by the posterior tibial artery is 0.85. The left ankle brachial index by the dorsalis pedis is 0.93. The left digital-brachial index is 0.42. VL/Lower Ext Art Exam w/o Exercis Interpretation Summary Right LAWRENCE 1.03, may be artificially elevated. Doppler/PVR waveforms of the righ t leg mildly diminished throughout. Left LAWRENCE 0.93, mild arterial insufficiency. Doppler/PVR waveforms of the left l eg mildly diminished throughout. Ordering Physician: Liam Grove Referring Physician: Katt Ramsay M.D. Performed By: Yoseph Meehan Jose
== END | disposition home or self-care (01) ==
LOC: CVS 09:48
PROVIDERS: PCP Family Medicine; Referring Provider Surgery Trauma Surgery; Visit Provider Surgery Trauma Surgery
DX: I73.9 Peripheral vascular disease, unspecified (principal); R07.9 Chest pain, unspecified
CPT/HCPCS: 93923

== ENCOUNTER → 2022-05-02 | Outpatient (CLI) | payer MEDICARE, SELFPAY ==
[2022-05-02 18:16] LABS: Albumin, Serum 3.9 g/dL (3.2-5.0); BUN 32 mg/dL (7-18); BUN/Creat Ratio 24.1 RATIO (10-20); Calcium,Total 9.6 mg/dL (8.5-10.1); Chloride 106 mmol/L (98-107); Creatinine, Serum 1.33 mg/dL (0.55-1.02); EST Glomerular Filtration Rate 41 mL/min (>60); Est Glom Filt Rate - Afr Amer 50 mL/min (>60); Glucose 177 mg/dL (74-106); Phosphorus 3.6 mg/dL (2.5-4.9); Potassium 4.2 mmol/L (3.5-5.1); Sodium Level 137 mmol/L (136-145)
== END | disposition home or self-care (01) ==
LOC: POLAB3 15:57
PROVIDERS: PCP Family Medicine; Visit Provider Internal Medicine Nephrology
DX: N18.31 Chronic kidney disease, stage 3a (principal)
CPT/HCPCS: 36415; 80069

== ENCOUNTER → 2022-05-11 | Outpatient (CLI) | payer MEDICARE, SELFPAY ==
[2022-05-11 11:32] LABS: Protein, Urine (Random) 141.1 mg/dL (<11.9); Protein:Creat Ratio 1990 mg/g CRE (0-200)
== END | disposition home or self-care (01) ==
LOC: POLAB3 11:02
PROVIDERS: PCP Family Medicine; Visit Provider Internal Medicine Nephrology
DX: E11.21 Type 2 diabetes mellitus with diabetic nephropathy (principal)
CPT/HCPCS: 82570; 84156

== ENCOUNTER → 2022-07-05 | Outpatient (CLI) | payer MEDICARE, SELFPAY ==
--- NOTE | 2022-07-05 16:41 | STRESSREP ---
Stress Test Report Exercise myocardial perfusion stress test. 76-year-old lady with a history of coronary artery disease who presents with chest pain Stress protocol: Resting EKG demonstrates normal sinus rhythm with a rate of 67 bpm resting blood pressure is 134/66 mmHg. The patient exercised according to the regular Samuel protocol for a total duration of 3 minutes and 15 seconds attaining a maximum heart rate of 134 bpm which was 92% of maximum predicted heart rate; the maximum workload was 5.2 metabolic equivalents. At rest there were no ST or T wave changes noted to suggest ischemia and at peak exercise upsloping ST changes only were noted which did not meet the criteria for ischemia. No clinical angina was noted the test was terminated due to the target heart rate being achieved/fatigue. The peak blood pressure was 170/60 mmHg. Rate-pressure product was 18,900. Myocardial perfusion protocol. 12.0 mCi of technetium 99m sestamibi was injected at rest. The patient exercised according to regular Samuel protocol for total duration of 3 minutes and 15 seconds and at peak exercise 34.5 mCi of technetium 99m sestamibi was injected stress images were obtained stress and rest images were reconstructed in comparing the short axis vertical long and horizontal long axis. Gated images were also obtained. Perfusion SPECT analysis: Review of the stress images demonstrate normal uptake of tracer noted in all areas of the myocardium except for the mid anterior lateral wall with reduced perfusion. The resting images similarly demonstrate normal uptake of tracer noted in all areas of the myocardium. The above is suggestive of mid anterior lateral wall ischemia. Gated SPECT analysis: The gated ejection fraction is 56%. Conclusion: Abnormal exercise myocardial perfusion stress test at a low to moderate workload with anterolateral ischemia Preserved ejection fraction.
== END | disposition home or self-care (01) ==
PROVIDERS: PCP Family Medicine; Referring Provider Internal Medicine Cardiovascular Disease; Visit Provider Internal Medicine Cardiovascular Disease
DX: R07.9 Chest pain, unspecified (principal); I73.9 Peripheral vascular disease, unspecified; I25.10 Atherosclerotic heart disease of native coronary artery without angina pectoris; I10 Essential (primary) hypertension; E78.5 Hyperlipidemia, unspecified; Z98.61 Coronary angioplasty status
CPT/HCPCS: 78452; 93017; A9500; A4216

== ENCOUNTER 2022-07-13 11:05 | Day surgery (SDC) | payer MEDICARE, SELFPAY ==
[2022-07-07 12:43] LABS: Hematocrit 36.5 % (37-47); Hemoglobin 12.4 g/dL (12.0-15.0); Mean Corpuscular Hgb 31.5 pg (27.0-32.0); Mean Corpuscular Volume 92.6 fL (81-99); Mean Platelet Vol. 10.9 fl (6.2-12.0); Platelet Count 272 K/mm3 (150-450); RBC Distribution Width CV 12.6 % (11.6-14.6); RBC Distribution Width SD 43.5 fl (35.1-43.9); Red Blood Count 3.94 M/mm3 (4.2-5.4); White Blood Count 8.8 K/mm3 (4.4-11.0)
[2022-07-07 12:50] LABS: International Normalized Ratio 1.1; Prothrombin Time (Protime)PT. 14.3 SECONDS (11.7-14.9)
[2022-07-07 12:51] LABS: Partial Thromboplast Time 24.8 Seconds (24.1-36.2)
[2022-07-07 13:09] LABS: Anion Gap 5 (5-15); BUN 40 mg/dL (7-18); BUN/Creat Ratio 30.1 RATIO (10-20); Calcium,Total 9.4 mg/dL (8.5-10.1); Chloride 110 mmol/L (98-107); Creatinine, Serum 1.33 mg/dL (0.55-1.02); EST Glomerular Filtration Rate 41 mL/min (>60); Est Glom Filt Rate - Afr Amer 50 mL/min (>60); Glucose 152 mg/dL (74-106); Potassium 4.7 mmol/L (3.5-5.1); Sodium Level 135 mmol/L (136-145)
[2022-07-12 08:39] VITALS: BMI 27.3
--- NOTE | 2022-07-13 13:38 | CL.D_ITS ---
Patient Name: VALERIANO CROSS Study Date: 07/13/2022 Performing: Jose Lindo MD Ht: 60 inches 152.4 cm : 1945 Wt: 139.99 lbs 63.5 kg Age: 76 Gender: female BSA: 1.6 PROCEDURE(S) PERFORMED DC01-(72208)LHC/COR/LV CLINICAL PROFILE AND INDICATIONS Indications: Suspected CAD Heart Failure: None Stress/Imaging Date: 06/23/22Stress Test with SPECT MPI: Positive Intermediate Risk CAD Presentations: Stable angina. CONCLUSIONS Diffuse coronary artery disease status post previous LAD and right coronary artery stenting with diffuse disease noted in the obtuse marginal branch vessels and distal right coronary artery and distal LAD. RECOMMENDATIONS Medical therapy DESCRIPTION OF PROCEDURE The patient arrived to the procedure lab. The risks and benefits of the procedure as well as a full description of our services here and current unavailability of surgical backup were fully explained to the patient and/or their significant other prior to the catheterization. The Timeout was completed, verifying the correct patient and procedure. The patient's procedural site was prepped and draped in the usual fashion. Local anesthetic was given subcutaneously to left radial region with Lidocaine 2%. Using a modified Seldinger technique, arterial access was obtained via the left radial artery, a 6Fr sheath was inserted. Left Coronary Artery selective angiography was performed in multiple views using a 5 Fr. JL4 catheter. Right Coronary Artery selective angiography was then performed in multiple views using a 5 Fr. 3DRC (Vaibhav) catheter. Left Coronary Artery selective angiography was performed in multiple views using a 5 Fr. JL3.5 catheter. Left Ventriculography was performed in TOSCANO projection using a 5 Fr. Pigtail catheter. LV to AO pullback pressures were then recorded.The arterial sheath was pulled and a TR Band was applied for hemostasis CORONARY ANGIOGRAPHY DOMINANCE: Right Dominant LEFT HEART ASSESSMENT Left Ventricular Ejection Fraction: by LV Gram 70 % Normal LV wall motion Normal Left Ventricular systolic function LEFT MAIN: Mild calcification, Mild luminal irregularities LEFT ANTERIOR DESCENDING ARTERY: Previously placed stent in the left anterior descending artery is noted to be patent in the midsegment with an area post distal of approximately 60% the rest of the vessel appears to be small. First diagonal vessel with moderate disease. CIRCUMFLEX ARTERY: Moderate-sized left circumflex artery with first obtuse marginal branch which bifurcates into a superior and inferior portion both of which have 80% diffuse stenosis noted RIGHT CORONARY ARTERY: Previously stented right coronary artery which is patent with severe distal disease noted in a small posterior descending artery vessel. COMPLICATIONS No Complications PROCEDURE MEDICATIONS Fentanyl 50 mcg IV Versed 1 mg IV Oxygen: 2 L/min via nasal cannula Benadryl 25 mg IV @ 07/13/2022 13:24:21 Heparin given IA 07/13/2022 13:03:22 Verapamil 2.5mg, Ntg 100mcgs, 3000 units of Heparin given IA 07/13/2022 13:03:22 SUMMARY OF HEMODYNAMIC DATA Time AIR REST ECG 11:30:29 Art 148/59 (87) 13:00:16 AO 110/59 (78) SA 13:03:31 LV 151/12, 18 13:16:21 LV 150/11, 19 13:16:27 LV 152/11, 18 13:16:51 LV 146/11, 18 13:16:58 LVp 138/9, 24 13:17:03 AOp 129/-26 (52) 13:17:08 13:33:03 Signed By Jose Lindo MD On 07/13/2022 13:37:38 Jose Lindo MD
== END 2022-07-13 14:59 | disposition home or self-care (01) ==
PROVIDERS: PCP Family Medicine; Referring Provider Internal Medicine Cardiovascular Disease; Visit Provider Internal Medicine Cardiovascular Disease
DX: I25.118 Atherosclerotic heart disease of native coronary artery with other forms of angina pectoris (principal); E11.51 Type 2 diabetes mellitus with diabetic peripheral angiopathy without gangrene; I10 Essential (primary) hypertension; I25.2 Old myocardial infarction; R06.02 Shortness of breath; E78.5 Hyperlipidemia, unspecified; Z95.5 Presence of coronary angioplasty implant and graft; Z79.82 Long term (current) use of aspirin; Z79.899 Other long term (current) drug therapy; Z79.84 Long term (current) use of oral hypoglycemic drugs; Z87.891 Personal history of nicotine dependence
CPT/HCPCS: 36415; 80048; 85027; 85610; 85730; 93458; 99152; 99153; J7040; Q9967; C1769; C1894

== ENCOUNTER → 2022-10-06 | Outpatient (CLI) | payer MEDICARE, SELFPAY ==
[2022-10-06 10:41] LABS: Protein, Urine (Random) 92.3 mg/dL (<11.9); Protein:Creat Ratio 984 mg/g CRE (0-200)
[2022-10-06 10:47] LABS: Albumin, Serum 3.8 g/dL (3.2-5.0); BUN 43 mg/dL (7-18); BUN/Creat Ratio 29.1 RATIO (10-20); Calcium,Total 9.9 mg/dL (8.5-10.1); Chloride 107 mmol/L (98-107); Creatinine, Serum 1.48 mg/dL (0.55-1.02); EST Glomerular Filtration Rate 36 mL/min (>60); Est Glom Filt Rate - Afr Amer 44 mL/min (>60); Glucose 179 mg/dL (74-106); Phosphorus 3.5 mg/dL (2.5-4.9); Potassium 4.6 mmol/L (3.5-5.1); Sodium Level 137 mmol/L (136-145)
== END | disposition home or self-care (01) ==
LOC: LAB 09:21
PROVIDERS: PCP Family Medicine; Referring Provider Internal Medicine Nephrology; Visit Provider Internal Medicine Nephrology
DX: E11.21 Type 2 diabetes mellitus with diabetic nephropathy (principal); E11.22 Type 2 diabetes mellitus with diabetic chronic kidney disease; N18.32 Chronic kidney disease, stage 3b
CPT/HCPCS: 36415; 80069; 82570; 84156

== ENCOUNTER → 2022-12-04 | Outpatient (CLI) | payer MEDICARE, SELFPAY ==
[2022-12-04 15:44] LABS: AST(SGOT) 16 U/L (15-37); Alanine Aminotransfer ALT/SGPT 20 U/L (13-56); Alkaline Phosphatase 129 U/L (45-117); Cholesterol 192 mg/dL (200); Globulin 3.5 g/dL (2.2-4.2); High Density Lipoprotein 42 mg/dL; Protein, Total 7.5 g/dL (6.4-8.2); Thyroid Stim Hormone (TSH) 1.25 uIU/mL (0.358-3.74); Triglycerides 244 mg/dL; Very Low Density Lipoprotein 49 mg/dL (5-40)
== END | disposition home or self-care (01) ==
LOC: MFPLAB 11:53
PROVIDERS: PCP Family Medicine; Visit Provider Family Medicine
DX: E11.69 Type 2 diabetes mellitus with other specified complication (principal)
CPT/HCPCS: 36415; 80061; 80076; 84443

== ENCOUNTER → 2023-02-23 | Outpatient (CLI) | payer MEDICARE, SELFPAY ==
[2023-02-23 12:45] LABS: Albumin, Serum 3.6 g/dL (3.2-5.0); BUN 32 mg/dL (7-18); BUN/Creat Ratio 26.4 RATIO (10-20); Calcium,Total 10.1 mg/dL (8.5-10.1); Chloride 106 mmol/L (98-107); Creatinine, Serum 1.21 mg/dL (0.55-1.02); EST Glomerular Filtration Rate 46 mL/min (>60); Est Glom Filt Rate - Afr Amer 56 mL/min (>60); Glucose 167 mg/dL (74-106); Phosphorus 2.9 mg/dL (2.5-4.9); Potassium 4.2 mmol/L (3.5-5.1); Sodium Level 139 mmol/L (136-145)
[2023-02-23 12:55] LABS: Protein, Urine (Random) 134.3 mg/dL (<11.9); Protein:Creat Ratio 781 mg/g CRE (0-200)
== END | disposition home or self-care (01) ==
LOC: POLAB3 11:25
PROVIDERS: PCP Family Medicine; Visit Provider Internal Medicine Nephrology
DX: E11.22 Type 2 diabetes mellitus with diabetic chronic kidney disease (principal); E11.21 Type 2 diabetes mellitus with diabetic nephropathy; N18.32 Chronic kidney disease, stage 3b
CPT/HCPCS: 36415; 80069; 82570; 84156

== ENCOUNTER 2023-04-25 13:59 | Emergency (ER) | payer MEDICARE, SELFPAY ==
[2023-04-25 14:00] VITALS: BP 156/53; PULSE 86; RESP 14; TEMP 35.7; O2SAT 99
--- NOTE | 2023-04-25 14:20 | ED.RN ---
[facility]BS. 'DELIA DOMINIQUE GO TO [place].
== END 2023-04-25 14:14 | disposition left against medical advice (07) ==
LOC: ED 14:20
PROVIDERS: PCP Family Medicine
DX: Z53.21 Procedure and treatment not carried out due to patient leaving prior to being seen by health care provider (principal)

== ENCOUNTER 2023-05-03 21:16 | Emergency (ER) | payer MEDICARE, SELFPAY ==
[2023-05-03 21:17] VITALS: BP 173/57; PULSE 82; RESP 18; TEMP 36.6; O2SAT 100; BMI 26.0
[2023-05-03 22:26] LABS: Absolute Lymphocyte Count 2.32 X10^3/uL (0.83-4.51); Absolute Neutrophil Count 5.5 X10^3/uL (2.0-7.7); Basophil# 0.17 X10^3/uL; Basophil% 1.9 % (0-1); Eosinophil# 0.12 X10^3/uL; Eosinophils% 1.4 % (0-5); Hematocrit 33.1 % (37-47); Hemoglobin 10.9 g/dL (12.0-15.0); Lymphocyte # 2.32 X10^3/ul (0.83-4.51); Lymphocyte % 26.3 % (19-41); Mean Corp Hgb Conc 32.9 g/dL (32-36); Mean Corpuscular Hgb 29.5 pg (27.0-32.0); Mean Corpuscular Volume 89.7 fL (81-99); Mean Platelet Vol. 10.4 fl (6.2-12.0); Monocyte# 0.69 X10^3/uL; Monocyte% 7.8 % (0-10); NRBC Flagged by Analyzer 0 % (0-5); Neutrophil # 5.47 X10^3/uL (2.7-7.7); Platelet Count 323 K/mm3 (150-450); RBC Distribution Width SD 38.3 fl (35.1-43.9); Red Blood Count 3.69 M/mm3 (4.2-5.4); White Blood Count 8.8 K/mm3 (4.4-11.0)
--- OUTSIDE RECORDS SUMMARY | 2023-05-03 22:27 | XMS RPT_ITS | CCD ---
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 Name Role Phone HOLLY NICOLE, DR SHAIKH Primary Care Physician [phone] HAWA RAMSAY Primary Care Unavailable FELICIA WILLIS Referring Unavailable HAWA RAMSAY Primary Care Unavailable FELICIA WILLIS Attending Unavailable DR HAWA RAMSAY MD Primary Care Unavailable JALYN MCADAMS MD Attending Unavailable MARLEE NICOLE, DR PAUL Attending Unavaildionne RAMSAY MD, DR SHAIKH Primary Care Unavailable Allergies Allergy Classification Reported Allergen(s) Allergy Type Date of Onset Reaction(s) Facility (3 sources) benzonatate; Translations: [benzonatate] Drug Allergy 12-24-2013 [facility] (2 sources) lansoprazole; Translations: [lansoprazole] Drug Allergy [facility] (1 source) Baclofen; Translations: [BACLOFEN] Drug Allergy 04-20-2020 [facility] (1 source) Omeprazole; Translations: [OMEPRAZOLE MAGNESIUM] Drug Allergy 12-09-2013 [facility] Repository Medications Current Medications Medication Drug Class(es) Dates Sig (Normalized) Sig (Original) cefdinir 300 mg oral capsule (1 source) Cephalosporin Antibacterial Start: 04-25-2023 End: 05-02-2023 cefdinir 300 mg oral capsule Dose : 300 mg = 1 cap(s), Oral, q12h, X 7 day(s), # 14 cap(s), 0 Refill(s), 05/02/23 6:46:00 PM EST, 61.4 Start Date: 04/25/23 Stop Date: 05/02/23 Status: Ordered clopidogrel 75 mg oral tablet (2 sources) P2Y12 Platelet Inhibitor Start: 03-09-2023 clopidogrel 75 mg oral tablet Dose : 75 mg = 1 tab(s), Oral, qDay, # 90 tab(s), 0 Refill(s) Start Date: 03/09/23 Status: Ordered ezetimibe 10 mg oral tablet (2 sources) Dietary Cholesterol Absorption Inhibitor Start: 03-09-2023 ezetimibe 10 mg oral tablet Dose : 10 mg = 1 tab(s), Oral, qDay, # 30 tab(s), 0 Refill(s) Start Date: 03/09/23 Status: Ordered finerenone 20 MG Oral Tablet [Kerendia] (2 sources) Start: 03-09-2023 Kerendia 20 mg oral tablet Dose : 20 mg = 1 tab(s), Oral, qDay, # 30 tab(s), 0 Refill(s) Start Date: 03/09/23 Status: Ordered glipiZIDE er 5 mg 24 hr extended release oral tablet (2 sources) Sulfonylurea Start: 03-09-2023 glipiZIDE 5 mg oral tablet, extended release Dose : 5 mg = 1 tab(s), Oral, qDay, # 30 tab(s), 0 Refill(s) Start Date: 03/09/23 Status: Ordered 24 hr isosorbide mononitrate 30 mg extended release oral tablet (2 sources) Nitrate Vasodilator Start: 03-09-2023 isosorbide mononitrate 30 mg oral tablet, extended release Dose : 30 mg = 1 tab(s), Oral, qAM, # 30 tab(s), 0 Refill(s) Start Date: 03/09/23 Status: Ordered lisinopril 20 mg oral tablet (2 sources) Angiotensin Converting Enzyme Inhibitor Start: 03-09-2023 lisinopril 20 mg oral tablet Dose : 20 mg = 1 tab(s), Oral, Daily, # 100 tab(s), 0 Refill(s) Start Date: 03/09/23 Status: Ordered Lopressor 25mg--USE metoprolol tartrate 25 mg oral tablet (2 sources) Start: 03-09-2023 Lopressor 25mg--USE metoprolol tartrate 25 mg oral tablet Dose : 25 mg = 1 tab(s), Oral, BID, TAKE 1 TABLET BY MOUTH TWICE A DAY Start Date: 03/09/23 Status: Ordered Completed/Discontinued Medications Medication Drug Class(es) Dates Sig (Normalized) Sig (Original) acetaminophen 325 mg / HYDROcodone bitartrate 5 mg oral tablet (2 sources) Opioid Agonist Start: 03-09-2023 End: 03-12-2023 take 1 tablet by mouth every eight hours Providence 325- 5 mg oral tablet Dose = 1 tab(s), Oral, q8h, # 10 tab(s), 0 Refill(s), Abdominal pain, 61.4 Start Date: 03/09/23 Stop Date: 03/12/23 Status: Ordered cephalexin 500 mg oral capsule (2 sources) Cephalosporin Antibacterial Start: 03-09-2023 End: 03-16-2023 cephalexin 500 mg oral capsule Dose : 500 mg = 1 cap(s), Oral, BID, # 14 cap(s), 0 Refill(s), 61.4 Start Date: 03/09/23 Stop Date: 03/16/23 Status: Ordered valACYclovir 1000 mg oral tablet (1 source) Herpesvirus Nucleoside Analog DNA Polymerase Inhibitor, Herpes Simplex Virus Nucleoside Analog DNA Polymerase Inhibitor, Herpes Zoster Virus Nucleoside Analog DNA Polymerase Inhibitor Start: 04-25-2023 End: 05-02-2023 Valtrex 1 g oral tablet Dose : 1 gram(s) = 1 tab(s), Oral, q8h, X 7 day(s), # 21 tab(s), 0 Refill(s), 05/02/23 6:46:00 PM EST, 61.4 Start Date: 04/25/23 Stop Date: 05/02/23 Status: Ordered Problems Active Problems Problem Classification Problem Date Documented Date Episodic/Chronic Genitourinary symptoms and ill-defined conditions (3 sources) Unspecified symptoms and signs involving the genitourinary system; Translations: [Retention of urine] Onset: 04-25-2023 Episodic Past or Other Problems Problem Classification Problem Date Documented Da te Episodic/Chronic Abdominal pain (2 sources) Abdominal pain; Translations: [Unspecified abdominal pain] Onset: 12-29-2013 Episodic Results Test Name Value Interpretation Reference Range Facil ity Vital Signs Date Time Vital Sign Value Performing Clinician Faci lity 04-25-2023 19:08-0500 Diastolic Blood Pressure Non-Invasive 70 mm[Hg] DR HUMBERTO WHALEN MD [facility] 04-25-2023 19:08-0500 Heart rate 61 /min DR HUMBERTO WHALEN MD [facility] 04-25-2023 19:08-0500 Mean blood pressure 93 mm[Hg] DR HUMBERTO WHALEN MD [facility] 04-25-2023 19:08-0500 Respiratory rate 16 /min DR HUMBERTO WHALEN MD [facility] 04-25-2023 19:08-0500 Systolic Blood Pressure Non-Invasive 165 mm[Hg] DR HUMBERTO WHALEN MD [facility] 04-25-2023 15:10-0500 Body temperature 96.98 [degF] DR HUMBERTO WHALEN MD [facility] 04-25-2023 15:10-0500 Diastolic Blood Pressure Non-Invasive 42 mm[Hg] DR HUMBERTO WHALEN MD [facility] 04-25-2023 15:10-0500 Heart rate 81 /min DR HUMBERTO WHALEN MD [facility] 04-25-2023 15:10-0500 Respiratory rate 16 /min DR HUMBERTO WHALEN MD [facility] 04-25-2023 15:10-0500 Systolic Blood Pressure Non-Invasive 190 mm[Hg] DR HUMBERTO WHALEN MD [facility] 03-09-2023 18:55-0500 Diastolic Blood Pressure Non-Invasive 98 mm[Hg] JALYN MCADAMS MD [facility] 03-09-2023 18:55-0500 Heart rate 80 /min JALYN MCADAMS MD [facility] 03-09-2023 18:55-0500 Respiratory rate 16 /min JALYN MCADAMS MD [facility] 03-09-2023 18:55-0500 Systolic Blood Pressure Non-Invasive 126 mm[Hg] JALYN MCADAMS MD [facility] 03-09-2023 15:30-0500 Body height 152.4 cm JALYN MCADAMS MD [facility] 03-09-2023 15:30-0500 Body temperature 97.52 [degF] JALYN MCADAMS MD [facility] 03-09-2023 15:30-0500 Body weight 61.4 kg JALYN MCADAMS MD [facility] 03-09-2023 15:30-0500 Diastolic Blood Pressure Non-Invasive 76 mm[Hg] JALYN MCADAMS MD [facility] 03-09-2023 15:30-0500 Heart rate 75 /min JALYN MCADAMS MD [facility] 03-09-2023 15:30-0500 Respiratory rate 16 /min JALYN MCADAMS MD [facility] 03-09-2023 15:30-0500 Systolic Blood Pressure Non-Invasive 184 mm[Hg] JALYN MCADAMS MD [facility] Encounters Encounter Date Encounter Type Care Provider Facility Start: 04-25-2023 End: 04-25-2023 Emergency department patient visit DR HUMBERTO WHALEN MD Facility:[facility] Start: 04-25-2023 End: 04-25-2023 Emergency department patient visit DR HUMBERTO WHALEN MD [facility] Start: 04-25-2023 End: 04-26-2023 ambulatory HAWA RAMSAY Facility:[facility] Start: 03-09-2023 End: 03-09-2023 Emergency department patient visit DR HAWA RAMSAY MD Facility: Start: 03-09-2023 End: 03-09-2023 Emergency department patient visit JALYN MCADAMS MD [facility] Procedures Date Procedure Procedure Detail Performing Clinician Cataract (disorder) JALYN LEBRON MD Cholecystectomy JALYN Sanchez MD Stent, device (physical object) JALYN MCADAMS MD Payers Date Payer Category Payer Medicare [id number] 1945 Unknown [id number] 1945 Unknown [id number] Social History Date Type Detail Facility Start: 03-09-2023 Tobacco smoking status Ex-smoker (fi nding) [facility] Sex Assigned At Female [facility] Functional Status Date Assessment Result Facility 04-25-2023 Functional Status Independent [facility] 04-25-2023 Functional Status Standard Safet y ID band on, Allergy Band on, Call device within reach, Bed in low position, Wheels locked, Upper/Half-Length side-rails up, Phone within reach, personal items within reach [facility] 03-09-2023 Functional Status Up ad harris [facility] Mental Status Date Assessment Result Facility 04-25-2023 Mental Status Orientation Oriented x 4 [facility] 04-25-2023 Mental Status [facility] 03-09-2023 Mental Status Orientation Oriented x 4 [facility] Clinical Notes 03-09-2023 to 04-27-2023 Note Date & Type Note Facility 04-27-2023 Note . MICRO - Microbiology PROCEDURE: Urine Culture [*1] SOURCE: Urine, Clean Catch BODY SITE: COLLECTED DATE/TIME: 04/25/2023 17:43 EST RECEIVED DATE/TIME: 04/26/2023 16:31 EST START DATE/TIME: 04/26/2023 16:31 EST FREE TEXT SOURCE: FINAL REPORTS Final Report [] Verified Date/Time/Personnel: 04/27/2023 14:31 EST >100,000 cfu/ml Multiple bacterial morphotypes present. Probable Contamination. Suggest recollection if clinically indicated. Performing Locations *1: This test was performed at: [facility], [address] [place] [address], [id number] , [facility] ([place]) 04-27-2023 Note HNO ID: [id number] Author: ?, ?, ? Service: ? Author Type: ? Type: Progress Notes Filed: 04/27/2023 13:56 Note Text: Patient went to Urologist on 04-26-2023 Cancelled appointment with [facility]. Did not want to reschedule. Elke Weinstein [facility] 04-25-2023 Hospital Discharge instructions Patient Education 04/25/2023 18:47:43 Shingles (Herpes Zoster) Shingles (Herpes Zoster) Talk to your healthcare provider about the shingles vaccine. Shingles is also called herpes zoster. It is a painful skin rash caused by the herpes zoster virus. This is the same virus that causes chickenpox. After a person has chickenpox, the virus remains inactive in the nerve cells. Years later, the virus can become active again and travel to the skin. Most people have shingles only once, but it is possible to have it more than once. What are the risk factors for shingles? Anyone who has ever had chickenpox can develop shingles. But your risk is greater if you: Are 50 years of age or older Have an illness that weakens your immune system, such as HIV/AIDS Have cancer, especially Hodgkin disease or lymphoma Take medicines that weaken your immune system What are the symptoms of shingles? The first sign of shingles is usually pain, burning, tingling, or itching on one part of your face or body. You may also feel as if you have the flu, with fever and chills. A red rash with small blisters appears within a few days. The rash may appear as follows: oThe blisters can occur anywhere, but they re most common on the back, chest, or abdomen. oThey usually appear on only one side of the body, spreading along the nerve pathway where the virus was inactive. oThe rash can also form around an eye, along one side of the face or neck, or in the mouth. oIn a few people, usually those with weakened immune systems, shingles appear on more than one part of the body at once. After a few days, the blisters become dry and form a crust. The crust falls off in days to weeks. The blisters generally do not leave scars. How is shingles treated? For most people, shingles heals on its own in a few weeks. But treatment is recommended to help relieve pain, speed healing, and reduce the risk of complications. Antiviral medicines are prescribed within the first 72 hours of the appearance of the rash. To lessen symptoms: Apply ice packs (wrapped in a thin towel) or cool compresses, or soak in a cool bath. Use calamine lotion to calm itchy skin. Ask your healthcare provider about [id number] pain relievers. If your pain is severe, your healthcare provider may prescribe stronger pain medicines. What are the complications of shingles? Shingles often goes away with no lasting effects. But some people have serious problems long after the blisters have healed: Postherpetic neuralgia. This is the most common complication. It is severe nerve pain at the place where the rash used to be. It can last for months, or even years after you have had shingles. Medicines can be prescribed to help relieve the pain and improve quality of life. Bacterial infection. Shingles blisters may become infected with bacteria. Antibiotic medicine is used to treat the infection. Eye problems. A person with shingles on the face should see his or her healthcare provider right away. Shingles can cause serious problems with vision, and even blindness. Very rarely shingles can also lead to pneumonia, hearing problems, brain inflammation, or even . When to seek medical care Contact your healthcare provider if you experience any of the following: Symptoms that don t go away with treatment A rash or blisters near your eye Increased drainage, fever, or rash after treatment, or severe pain that doesn t go away How can shingles be prevented? You can only get shingles if you have had chickenpox in the past. Those who have never had chickenpox can get the virus from you. Although instead of developing shingles, the person may get chickenpox. Until your blisters form scabs, avoid contact with others, especially the following: women who have never had chickenpox or the vaccine Infants who were born early (prematurely) or who had low weight at People with weak immune system (for example, people receiving chemotherapy for cancer, people who have had organ transplants, or people with HIV infections) The shingles vaccine Shingles vaccines are available to help prevent shingles or make it less painful. Vaccination is recommended for adults 50 and older, even if you've had shingles in the past. Talk with your healthcare provider about the most appropriate time for you to get vaccinated, and which vaccine is best for you. [id number] [employer]. [address] [place] [address]. All rights reserved. This information is not intended as a substitute for professional medical care. Always follow your healthcare professional's instructions. 04/25/2023 18:47:43 Urinary Retention, Female Urinary Retention (Female) Urinary retention is the medical term for difficulty or inability to pass urine, even though your bladder is full. Causes For girls and women, the most common cause of urinary retention is a bladder infection. Certain medicines and changes in the body, such as uterine prolapse, can also cause this problem. Symptoms Some people have no symptoms. For others, common symptoms include: Bladder or lower-abdominal pain or fullness Abdominal swelling Nausea or vomiting Back pain Frequent urination Feeling that the bladder is still full after urinating Incontinence (not being able to control the release of urine) Treatment This condition is treated by inserting a tube (catheter) into the bladder to drain the urine. This provides immediate relief. The catheter may need to stay in place for a few days. The catheter has a balloon on the tip, which is inflated after insertion. This prevents the catheter from falling out. Home care If you were given antibiotics to treat a bladder infection, take them until they are used up, or your healthcare provider tells you to stop. It is important to finish the antibiotics even though you feel better. This is to make sure your infection has cleared. If a catheter was left in place, it is important to keep bacteria from getting into the collection bag. Don't disconnect the catheter from the collection bag. Use a leg band to secure the drainage tube, so it does not pull on the catheter. Drain the collection bag when it becomes full using the drain spout at the bottom of the bag. Don't pull on or try to remove your catheter. This will injure your urethra. The catheter must be removed by a healthcare provider. Follow-up care Follow up with your healthcare provider, or as advised. If a catheter was left in place, it can usually be removed within 3 to 7 days. Some conditions require that the catheter stays in longer. Your healthcare provider will tell you when to return to have the catheter removed. When to seek medical advice Call your healthcare provider right away if any of these occur: Fever of 100.4 F (38 C) or higher, or as directed by your healthcare provider Bladder or lower-abdominal pain or fullness Abdominal swelling, nausea, vomiting, or back pain Blood or urine leakage around the catheter Bloody urine coming from the catheter (if a new symptom) Weakness, dizziness, or fainting Confusion or change in usual level of alertness If a catheter was left in place, return if: oCatheter falls out oCatheter stops draining for 6 hours [id number] [employer] [address] [place] [address]. All rights reserved. This information is not intended as a substitute for professional medical care. Always follow your healthcare professional's instructions. 04/25/2023 18:47:43 Lim Catheter, Care Lim Catheter Care A Lim catheter is a rubber tube that is placed through the urethra (opening where urine comes out) and into the bladder. This helps drain urine from the bladder. There is a small balloon on the end of the tube that is inflated after insertion. This keeps the catheter from sliding out of the bladder. A Lim catheter is used to treat urinary retention (unable to pass urine). It is also used when there is incontinence (loss of bladder control). Home care Finish taking any prescribed antibiotic even if you are feeling better before then. It is important to keep bacteria from getting into the collection bag. Do not disconnect the catheter from the collection bag. Use a leg band to secure the drainage tube, so it does not pull on the catheter. Drain the collection bag when it becomes full using the drain spout at the bottom of the bag. Do not try to pull or remove your catheter. This will injure your urethra. It must be removed by your healthcare provider or nurse. Follow-up care Follow up with your healthcare provider as advised for repeat urine testing and catheter removal or replacement. When to seek medical advice Call your healthcare provider right away if any of these occur: Fever of 100.4 F (38 C) or higher, or as directed by your healthcare provider Bladder pain or fullness Abdominal swelling, nausea or vomiting, or back pain Blood or urine leakage around the catheter Bloody urine coming from the catheter (if a new symptom) Catheter falls out Catheter stops draining for 6 hours Weakness, dizziness, or fainting [id number] [employer] [address] [place] [address]. All rights reserved. This information is not intended as a substitute for professional medical care. Always follow your healthcare professional's instructions. Follow Up Care 04/25/2023 15:02:38 With:HAWA RAMSAY Address: [address] [place] [phone]- Business (1) When:2-4 days Comments:Take antibiotic as prescribed. Take antiviral for shingles. Keep Lim catheter in place. Follow-up with your urologist. Return if any worsening or concerning symptoms. [facility] 04-25-2023 Note Discharge Instructions Thank you for allowing [facility] to assist you with your healthcare needs. The following is important discharge information regarding your hospital visit. Diagnosis from Today's Visit Abdominal pain Urinary retention UTI symptoms What to Do Next Instructions from Your Care Team No qualifying data available. Post Acute Orders No qualifying data available. You Need to Schedule the Following Appointments Follow Up with HAWA RAMSAY When Within 2-4 days Why: Take antibiotic as prescribed. Take antiviral for shingles. Keep Lim catheter in place. Follow-up with your urologist. Return if any worsening or concerning symptoms. Where: [address] [place] [id number] (1) Allergies Prevacid Tessalon Perles Medications Please ask your primary doctor or pharmacist before taking any other medication not listed, including over the counter drugs, herbal medications, vitamins and or supplements as they may interact with your home medications. What How Much When Why Instructions Last Dose New cefdinir (cefdinir 300 mg oral capsule) 1 cap by mouth Every 12 hours Duration: 7 Days Printed Prescription New valACYclovir (Valtrex 1 g oral tablet) 1 tab(s) by mouth Every 8 hours Duration: 7 Days Printed Prescription Unchanged acetaminophen-hydrocodone (Providence 325- 5 mg oral tablet) 1 tab(s) by mouth Every 8 hours Abdominal pain Duration: 3 Days Unchanged cephalexin (cephalexin 500 mg oral capsule) 1 cap by mouth Two (2) times a day Duration: 7 Days Unchanged clopidogrel (clopidogrel 75 mg oral tablet) 1 tab(s) by mouth Once a day Unchanged ezetimibe (ezetimibe 10 mg oral tablet) 1 tab(s) by mouth Once a day Unchanged finerenone (Kerendia 20 mg oral tablet) 1 tab(s) by mouth Once a day Unchanged glipiZIDE (glipiZIDE 5 mg oral tablet, extended release) 1 tab(s) by mouth Once a day Unchanged isosorbide mononitrate (isosorbide mononitrate 30 mg oral tablet, extended release) 1 tab(s) by mouth Once a day (in the morning) Unchanged lisinopril (lisinopril 20 mg oral tablet) 1 tab(s) by mouth Every day Unchanged metoprolol (Lopressor 25mg--USE metoprolol tartrate 25 mg oral tablet) 1 tab(s) by mouth Two (2) times a day TAKE 1 TABLET BY MOUTH TWICE A DAY Please take this list to your next doctor s visit. Bring all medications you take, including over the counter medications, herbals and other supplements with you to your doctor s visit. Patients and families are reminded to discard old lists and to update any records with all medication providers or retail pharmacies. Education Materials Shingles (Herpes Zoster) Talk to your healthcare provider about the shingles vaccine. Shingles is also called herpes zoster. It is a painful skin rash caused by the herpes zoster virus. This is the same virus that causes chickenpox. After a person has chickenpox, the virus remains inactive in the nerve cells. Years later, the virus can become active again and travel to the skin. Most people have shingles only once, but it is possible to have it more than once. What are the risk factors for shingles? Anyone who has ever had chickenpox can develop shingles. But your risk is greater if you: Are 50 years of age or older Have an illness that weakens your immune system, such as HIV/AIDS Have cancer, especially Hodgkin disease or lymphoma Take medicines that weaken your immune system What are the symptoms of shingles? The first sign of shingles is usually pain, burning, tingling, or itching on one part of your face or body. You may also feel as if you have the flu, with fever and chills. A red rash with small blisters appears within a few days. The rash may appear as follows: oThe blisters can occur anywhere, but they re most common on the back, chest, or abdomen. oThey usually appear on only one side of the body, spreading along the nerve pathway where the virus was inactive. oThe rash can also form around an eye, along one side of the face or neck, or in the mouth. oIn a few people, usually those with weakened immune systems, shingles appear on more than one part of the body at once. After a few days, the blisters become dry and form a crust. The crust falls off in days to weeks. The blisters generally do not leave scars. How is shingles treated? For most people, shingles heals on its own in a few weeks. But treatment is recommended to help relieve pain, speed healing, and reduce the risk of complications. Antiviral medicines are prescribed within the first 72 hours of the appearance of the rash. To lessen symptoms: Apply ice packs (wrapped in a thin towel) or cool compresses, or soak in a cool bath. Use calamine lotion to calm itchy skin. Ask your healthcare provider about zuri-iur-jpshuvv pain relievers. If your pain is severe, your healthcare provider may prescribe stronger pain medicines. What are the complications of shingles? Shingles often goes away with no lasting effects. But some people have serious problems long after the blisters have healed: Postherpetic neuralgia. This is the most common complication. It is severe nerve pain at the place where the rash used to be. It can last for months, or even years after you have had shingles. Medicines can be prescribed to help relieve the pain and improve quality of life. Bacterial infection. Shingles blisters may become infected with bacteria. Antibiotic medicine is used to treat the infection. Eye problems. A person with shingles on the face should see his or her healthcare provider right away. Shingles can cause serious problems with vision, and even blindness. Very rarely shingles can also lead to pneumonia, hearing problems, brain inflammation, or even . When to seek medical care Contact your healthcare provider if you experience any of the following: Symptoms that don t go away with treatment A rash or blisters near your eye Increased drainage, fever, or rash after treatment, or severe pain that doesn t go away How can shingles be prevented? You can only get shingles if you have had chickenpox in the past. Those who have never had chickenpox can get the virus from you. Although instead of developing shingles, the person may get chickenpox. Until your blisters form scabs, avoid contact with others, especially the following: women who have never had chickenpox or the vaccine Infants who were born early (prematurely) or who had low weight at People with weak immune system (for example, people receiving chemotherapy for cancer, people who have had organ transplants, or people with HIV infections) The shingles vaccine Shingles vaccines are available to help prevent shingles or make it less painful. Vaccination is recommended for adults 50 and older, even if you've had shingles in the past. Talk with your healthcare provider about the most appropriate time for you to get vaccinated, and which vaccine is best for you. 9342-7656 [employer]. [address] [place] [address]. All rights reserved. This information is not intended as a substitute for professional medical care. Always follow your healthcare professional's instructions. Urinary Retention (Female) Urinary retention is the medical term for difficulty or inability to pass urine, even though your bladder is full. Causes For girls and women, the most common cause of urinary retention is a bladder infection. Certain medicines and changes in the body, such as uterine prolapse, can also cause this problem. Symptoms Some people have no symptoms. For others, common symptoms include: Bladder or lower-abdominal pain or fullness Abdominal swelling Nausea or vomiting Back pain Frequent urination Feeling that the bladder is still full after urinating Incontinence (not being able to control the release of urine) Treatment This condition is treated by inserting a tube (catheter) into the bladder to drain the urine. This provides immediate relief. The catheter may need to stay in place for a few days. The catheter has a balloon on the tip, which is inflated after insertion. This prevents the catheter from falling out. Home care If you were given antibiotics to treat a bladder infection, take them until they are used up, or your healthcare provider tells you to stop. It is important to finish the antibiotics even though you feel better. This is to make sure your infection has cleared. If a catheter was left in place, it is important to keep bacteria from getting into the collection bag. Don't disconnect the catheter from the collection bag. Use a leg band to secure the drainage tube, so it does not pull on the catheter. Drain the collection bag when it becomes full using the drain spout at the bottom of the bag. Don't pull on or try to remove your catheter. This will injure your urethra. The catheter must be removed by a healthcare provider. Follow-up care Follow up with your healthcare provider, or as advised. If a catheter was left in place, it can usually be removed within 3 to 7 days. Some conditions require that the catheter stays in longer. Your healthcare provider will tell you when to return to have the catheter removed. When to seek medical advice Call your healthcare provider right away if any of these occur: Fever of 100.4 F (38 C) or higher, or as directed by your healthcare provider Bladder or lower-abdominal pain or fullness Abdominal swelling, nausea, vomiting, or back pain Blood or urine leakage around the catheter Bloody urine coming from the catheter (if a new symptom) Weakness, dizziness, or fainting Confusion or change in usual level of alertness If a catheter was left in place, return if: oCatheter falls out oCatheter stops draining for 6 hours [phone] [employer]. [address] [place] [address], [place] [address]. All rights reserved. This information is not intended as a substitute for professional medical care. Always follow your healthcare professional's instructions. Lim Catheter Care A Lim catheter is a rubber tube that is placed through the urethra (opening where urine comes out) and into the bladder. This helps drain urine from the bladder. There is a small balloon on the end of the tube that is inflated after insertion. This keeps the catheter from sliding out of the bladder. A Lim catheter is used to treat urinary retention (unable to pass urine). It is also used when there is incontinence (loss of bladder control). Home care Finish taking any prescribed antibiotic even if you are feeling better before then. It is important to keep bacteria from getting into the collection bag. Do not disconnect the catheter from the collection bag. Use a leg band to secure the drainage tube, so it does not pull on the catheter. Drain the collection bag when it becomes full using the drain spout at the bottom of the bag. Do not try to pull or remove your catheter. This will injure your urethra. It must be removed by your healthcare provider or nurse. Follow-up care Follow up with your healthcare provider as advised for repeat urine testing and catheter removal or replacement. When to seek medical advice Call your healthcare provider right away if any of these occur: Fever of 100.4 F (38 C) or higher, or as directed by your healthcare provider Bladder pain or fullness Abdominal swelling, nausea or vomiting, or back pain Blood or urine leakage around the catheter Bloody urine coming from the catheter (if a new symptom) Catheter falls out Catheter stops draining for 6 hours Weakness, dizziness, or fainting [id number] [employer]. [address] [place] [address]. All rights reserved. This information is not intended as a substitute for professional medical care. Always follow your healthcare professional's instructions. Additional Information VACCINATE! IT SAVES LIVES! Members of the community who have not yet received the COVID-19 vaccine and would like to receive it can visit one of [facility] vaccine clinics. There are many vaccine clinic locations within the [facility]. For locations and available times, please visit [email or web address] It is important to note that some COVID mobile vaccine clinics are held outdoors and may be canceled in rainy or stormy conditions. To learn more about pediatric vaccinations (ages 5-11), we invite you to visit the [facility] webpage. [email or web address] To learn more about the COVID-19 vaccine, we invite you to visit the CDC website for a list of frequently asked questions. https://www.cdc.gov/coronavirus/ 2019-ncov/vaccines/faq.html [facility] Patient Portal Access Instructions: Stay connected with your healthcare team and access your personal medical information anytime with the [employer] Patient Portal. If you would like a full copy of your medical records please contact the [facility] Medical Records Department Sunday through Sunday between 8a.m. and 4:30p.m. Please follow the directions below to access the portal: 1.Access the email account you provided upon registration to the [facility].2.Look for an invitation email from [facility].3.Open the email and access the invitation link: Accept Invitation to [facility].Fill in the required wilson to create your account. Sign into [email or web address] with your username and password that you created in the above steps to stay up to date. You can then view a summary of results, a summary of your visits, and the ability to download your summaries to your computer or send the information securely to a physician. Remember that your healthcare information is confidential, so carefully consider who you will allow to register on the [employer] Patient Portal for access to your information. You can also access the [employer] Patient Portal on the [employer]. Simply click on Health Records under Health Data and then click on the [employer] logo. HOW TO SAFELY DISPOSE OF PRESCRIPTION MEDICATIONS Please use one of the following methods to safely dispose of your unused medications. 1.Use a drug disposal kit: the drug disposal pouch allows you to safely discard your old and unused drugs. Ask your nurse to give you one when you are discharged.2.Visit a local take-back location: Many local pharmacies and police departments have programs that collect old and unwanted prescription drugs. Call your local pharmacy or go to http://bit.BATTERIES & BANDS/2P6Vo6l to find one close to you.3.Make use of household items: Use cat litter or old coffee grounds to dispose medications if other options are not available. Mix your drugs with these household products, seal them in an airtight container and throw it into the garbage. Call [facility]: [phone] to be sure your drugs can be disposed of in this way. Some medicines may require a different approach.4.Never flush your medications down the toilet. IF YOU HAVE BEEN PRESCRIBED AN OPIOIDS FOR PAIN If you have been prescribed an opioid (such as hydrocodone, oxycodone or morphine), it is critical to understand the possible side effects and risks of opioid pain medications. Even when taken as directed, opioids can have several side effects including: Tolerance, meaning you might need to take more of a medication for the same pain relief. Nausea, vomiting and/or constipation. Sleepiness, dizziness, dry mouth, confusion, depression or itching. Physical dependence, meaning you have withdrawal symptoms when a medication is stopped ? this can develop within a few days. KNOW YOUR RESPONSIBILITIES It is important to know exactly how much and how often to take the opioid pain medications you are prescribed. Never take opioids in higher amounts or more often than prescribed. Do not combine opioids with alcohol or other drugs that cause drowsiness, such as benzodiazepines, also known as benzos, including diazepam and alprazolam, muscle relaxants or sleep aids. Never sell or share prescription opioids. This is illegal. Store opioids in a secure place and out of reach of others (including children, family, friends and visitors). The last page(s) of this document has been signed and retained as a CHART COPY Signatures Patient Education Materials Shingles (Herpes Zoster) Urinary Retention, Female Lim Catheter, Care Medication Leaflets My discharge plan and instructions have been reviewed and explained to me and I,LARGE, VALERIANO understand my current condition and have read and understand these discharge instructions. I have received a written copy of the plan/instructions. If I have questions, I am aware that I should contact my doctor. 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 Multiplanar reformatted images are provided for review. Automated exposure control, iterative reconstruction, and/or weight based adjustment of the mA/kV was utilized to reduce the radiation dose to as low as reasonably achievable. COMPARISON: 03/09/2023 HISTORY: ORDERING SYSTEM PROVIDED HISTORY: Reason for Exam: pain FINDINGS: Lower Chest: Normal heart size. No focal consolidation or pleural effusion. Organs: The liver appears normal. The patient is status post cholecystectomy. The spleen appears normal. The pancreas appears normal. The adrenal glands appear normal. The kidneys appear normal with no evidence of nephrolithiasis or hydronephrosis. GI/Bowel: There is diverticulosis without diverticulitis. There is no evidence of obstruction. The appendix is normal. Pelvis: The bladder is distended but structurally normal. Otherwise the pelvic organs appear normal. Peritoneum/Retroperitoneum: There is no intraperitoneal free air or ascites. Atherosclerosis of the aorta and major branches without aneurysm is noted. No lymphadenopathy is identified. Bones/Soft Tissues: Degenerative changes are noted in the spine. No focal soft tissue abnormality is identified. IMPRESSION: Marked bladder distension. Please correlate for urinary retention. Diverticulosis without evidence of diverticulitis. Interpreted by: Stephen Yuen Preliminary Report By: Stephen Yuen Electronically signed By Stephen Yuen Dictated Date: 04/25/2023 5:26:25 PM Prelim Date: 04/25/2023 5:32:11 PM Sign Date: 04/25/2023 5:32:11 PM Ordering Provider: HUMBERTO WHALEN [facility] 04-25-2023 Evaluation + Plan note Diagnostic Tests PendingUrine Culture 04/25/23 [facility] 04-25-2023 Note HNO ID: [id number] Author: FELICIA WILLIS PA-C Service: ? Author Type: Physician Assisted Living Executive Director Type: Progress Notes Filed: 04/25/2023 12:21 Note Text: HISTORY AND PHYSICAL Valeriano Sanchez [place] 1945 REFERRING PHYSICIAN: No ref. provider found CHIEF COMPLAINT: Consult (EGD follow up 05/17/20) HPI: The patient is a 77 year old female referred for endoscopy. Valeriano notes multiple complaints at today's visit. Primary complaint is diffuse abdominal pain x several weeks, worse in the left upper quadrant of the abdomen. Describes as constant, burning in character, occasionally with radiation into her back and occasionally with radiation into the right side. Has had some nausea and states occasionally pain will make her feel like she is going to pass out. Denies fever or chills currently, but notes had a couple of days in the last week where she did feel feverish. Patient notes a change in bowels x the last couple of months. Describes stools as more mucousy than usual. Denies blood or black stools. Occasionally will note some bandlike lower abdominal discomfort even with sitting at rest. Denies recent travel or diet or medication changes. States was seen at ER within the last two months, brings hand-carried records, was told had hiatal hernia and UTI. States had trouble with antibiotics given for UTI and was not sure if this ever resolved. Has not had follow up with PCP to recheck urine. Patient also notes within the last few days has developed sores in vaginal area and some back toward rectum. Has not seen PCP or CHEMICAL [facility]EARCH ENGINEER yet for evaluation. Valeriano has undergone prior endoscopy. Last EGD and colonoscopy were performed by Dr. Kimball 05/06/20 under conscious sedation without concerning findings. Patient's medical history is significant for coronary artery disease with stents (most recent 1 year ago), gastroparesis, hypertension, type 2 diabetes mellitus, GERD, anxiety, chronic kidney disease. Patient follows with Dr. Ramsay in primary care and Dr. Martell in nephrology. Denies problems with sedation in the past. 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 ezetimibe-atorvastatin 10-10 mg tab Take 10 mg by mouth once daily. lisinopril (ZESTRIL, PRINIVIL) 20 mg tablet TAKE 1 TABLET BY MOUTH ONCE DAILY. glipiZIDE XL (GLUCOTROL XL) 2.5 mg 24 hr tablet TAKE 1 TABLET BY MOUTH ONCE DAILY. (Patient taking differently: Take 5 mg by mouth once daily.) nitroglycerin sublingual (NITROQUICK) 0.4 mg SL tablet Dissolve 1 tablet under the tongue as needed for Chest Pain. aspirin, enteric coated 81 mg EC tablet Take 81 mg by mouth once daily. BIOTIN ORAL Take by mouth. gluc marion/chondro marion A/vit C/Mn (GLUCOSAMINE 1500 COMPLEX ORAL) Take by mouth. diclofenac sodium (VOLTAREN) 1 % topical gel Apply to affected area four times daily. TURMERIC ORAL Take by mouth. Vitamin D3-Menaquinone 7 1000-90 unit-mcg ODT Take by mouth. Vitamin E, dl, acetate, 1,000 unit capsule Take 1,000 Units by mouth once daily. beta-carotene,A,-vits C,E/mins (OCUVITE ORAL) Take by mouth. guaiFENesin (MUCINEX) 600 mg 12 hr tablet Take 2 tablets by mouth twice daily. (Patient not taking: Reported on 05/17/2020 ) benzonatate (TESSALON PERLES) 100 mg capsule Take 1 capsule by mouth three times daily as needed. (Patient not taking: Reported on 05/17/2020 ) albuterol HFA (PROVENTIL HFA, VENTOLIN HFA) 90 mcg/actuation inhaler Inhale 2 Puffs as instructed every 4 hours as needed. (Patient not taking: Reported on 05/17/2020 ) ALPRAZolam (XANAX) 0.25 mg tablet Take 1 tablet by mouth once daily as needed for Anxiety. simvastatin (ZOCOR) 20 mg tablet Take 1 tablet by mouth daily at bedtime. (Patient not taking: Reported on 07/10/2018 ) zaanpx-zewwkfpl-zeuwlhy (ZENPEP) 5,0 (more content not included)... [facility] 03-09-2023 Hospital Discharge instructions Patient Education 03/09/2023 18:17:04 Urinary Tract Infections in Women Urinary Tract Infections in Women Urinary tract infections (UTIs) are most often caused by bacteria. These bacteria enter the urinary tract. The bacteria may come from outside the body. Or they may travel from the skin outside the rectum or vagina into the urethra. Female anatomy makes it easy for bacteria from the bowel to enter a woman s urinary tract, which is the most common source of UTI. This means women develop UTIs more often than men. Pain in or around the urinary tract is a common UTI symptom. But the only way to know for sure if you have a UTI for the healthcare provider to test your urine. The two tests that may be done are the urinalysis and urine culture. Types of UTIs Cystitis. A bladder infection (cystitis) is the most common UTI in women. You may have urgent or frequent urination. You may also have pain, burning when you urinate, and bloody urine. Urethritis. This is an inflamed urethra, which is the tube that carries urine from the bladder to outside the body. You may have lower stomach or back pain. You may also have urgent or frequent urination. Pyelonephritis. This is a kidney infection. If not treated, it can be serious and damage your kidneys. In severe cases, you may need to stay in the hospital. You may have a fever and lower back pain. Medicines to treat a UTI Most UTIs are treated with antibiotics. These kill the bacteria. The length of time you need to take them depends on the type of infection. It may be as short as 3 days. If you have repeated UTIs, you may need a low-dose antibiotic for several months. Take antibiotics exactly as directed. Don t stop taking them until all of the medicine is gone. If you stop taking the antibiotic too soon, the infection may not go away. You may also develop a resistance to the antibiotic. This can make it much harder to treat. Lifestyle changes to treat and prevent UTIs The lifestyle changes below will help get rid of your UTI. They may also help prevent future UTIs. Drink plenty of fluids. This includes water, juice, or other caffeine-free drinks. Fluids help flush bacteria out of your body. Empty your bladder. Always empty your bladder when you feel the urge to urinate. And always urinate before going to sleep. Urine that stays in your bladder can lead to infection. Try to urinate before and after sex as well. Practice good personal hygiene. Wipe yourself from front to back after using the toilet. This helps keep bacteria from getting into the urethra. Use condoms during sex. These help prevent UTIs caused by sexually transmitted bacteria. Also don't use spermicides during sex. These can increase the risk for UTIs. Choose other forms of control instead. For women who tend to get UTIs after sex, a low-dose of a preventive antibiotic may be used. Be sure to discuss this option with your healthcare provider. Follow up with your healthcare provider as directed. He or she may test to make sure the infection has cleared. If needed, more treatment may be started. [id number] [employer]. [address] [place] [address]. All rights reserved. This information is not intended as a substitute for professional medical care. Always follow your healthcare professional's instructions. 03/09/2023 18:16:36 Abdominal Pain Abdominal Pain Abdominal pain is pain in the stomach or belly area. Everyone has this pain from time to time. In many cases it goes away on its own. But abdominal pain can sometimes be due to a serious problem, such as appendicitis. So it s important to know when to get help. Causes of abdominal pain There are many possible causes of abdominal pain. Common causes in adults include: Constipation, diarrhea, or gas Stomach acid flowing back up into the esophagus (acid reflux or heartburn) Severe acid reflux, called GERD (gastroesophageal reflux disease) A sore in the lining of the stomach or small intestine (peptic ulcer) Inflammation of the gallbladder, liver, or pancreas Gallstones or kidney stones Appendicitis Intestinal blockage An internal organ pushing through a muscle or other tissue (hernia) Urinary tract infections In women, menstrual cramps, fibroids, ovarian cysts, pelvic inflammatory disease, or endometriosis Inflammation or infection of the intestines, including Crohn's disease and ulcerative colitis Irritable bowel syndrome Diagnosing the cause of abdominal pain Your healthcare provider will give you a physical exam help find the cause of your pain. If needed, you will have tests. Belly pain has many possible causes. So it can be hard to find the reason for your pain. Giving details about your pain can help. Tell your provider where and when you feel the pain, and what makes it better or worse. Also let your provider know if you have other symptoms such as: Fever Tiredness Upset stomach (nausea) Vomiting Changes in bathroom habits Blood in the stool or black, tarry stool Weight loss that you can't explain (involuntary weight loss?) Also report any family history of stomach or intestinal problems, or cancers. Tell your provider about all your alcohol use and drug use. Tell your provider about all medicines you use, including herbs, vitamins, and supplements. Treating abdominal pain Some causes of pain need emergency medical treatment right away. These include appendicitis or a bowel blockage. Other problems can be treated with rest, fluids, or medicines. Your healthcare provider can give you specific instructions for treatment or self-care based on what is causing your pain. If you have vomiting or diarrhea, sip water or other clear fluids. When you are ready to eat solid foods again, start with small amounts of mcxs-uq-obfhch, low-fat foods. These include apple sauce, toast, or crackers. When to get medical care Call 911 or go to the hospital right away if you: Can t pass stool and are vomiting Are vomiting blood or have bloody diarrhea or black, tarry diarrhea Have chest, neck, or shoulder pain Feel like you might pass out Have pain in your shoulder blades with nausea Have sudden, severe belly pain Have new, severe pain unlike any you have felt before Have a belly that is rigid, hard, and hurts to touch Call your healthcare provider if you have: Pain for more than 5 days Bloating for more than 2 days Diarrhea for more than 5 days A fever of 100.4 F (38 C) or higher, or as directed by your healthcare provider Pain that gets worse Weight loss for no reason Continued lack of appetite Blood in your stool How to prevent abdominal pain Here are some tips to help prevent abdominal pain: Eat smaller amounts of food at each meal. Don't eat greasy, fried, or other high-fat foods. Don't eat foods that give you gas. Exercise regularly. Drink plenty of fluids. To help prevent GERD symptoms: Quit smoking. Reduce alcohol and foods that increase stomach acid. Don't use aspirin or bnii-aqz-hexwdtk pain and fever medicines, if possible. This includes nonsteroidal anti-inflammatory drugs (NSAIDs). Lose excess weight. Finish eating at least 2 hours before you go to bed or lie down. Raise the head of your bed. [id number] [employer]. [address] [place] [address]. All rights reserved. This information is not intended as a substitute for professional medical care. Always follow your healthcare professional's instructions. Follow Up Care 03/09/2023 15:29:58 With:HAWA RAMSAY MD Address: [address] [place] [id number]- When:3-5 days [facility] 03-09-2023 Note Discharge Instructions Thank you for allowing [facility] to assist you with your healthcare needs. The following is important discharge information regarding your hospital visit. Diagnosis from Today's Visit Abdominal pain Abdominal pain What to Do Next Instructions from Your Care Team No qualifying data available. Post Acute Orders No qualifying data available. You Need to Schedule the Following Appointments Follow Up with HAWA RAMSAY MD When Within 3-5 days Where: [address] [place] [id number]- Allergies Prevacid Tessalon Perles Medications Please ask your primary doctor or pharmacist before taking any other medication not listed, including over the counter drugs, herbal medications, vitamins and or supplements as they may interact with your home medications. What How Much When Why Instructions Last Dose New acetaminophen-hydrocodone (Providence 325- 5 mg oral tablet) 1 tab(s) by mouth Every 8 hours Abdominal pain Duration: 3 Days Printed Prescription New cephalexin (cephalexin 500 mg oral capsule) 1 cap by mouth Two (2) times a day Duration: 7 Days Printed Prescription Unchanged clopidogrel (clopidogrel 75 mg oral tablet) 1 tab(s) by mouth Once a day Unchanged ezetimibe (ezetimibe 10 mg oral tablet) 1 tab(s) by mouth Once a day Unchanged finerenone (Kerendia 20 mg oral tablet) 1 tab(s) by mouth Once a day Unchanged glipiZIDE (glipiZIDE 5 mg oral tablet, extended release) 1 tab(s) by mouth Once a day Unchanged isosorbide mononitrate (isosorbide mononitrate 30 mg oral tablet, extended release) 1 tab(s) by mouth Once a day (in the morning) Unchanged lisinopril (lisinopril 20 mg oral tablet) 1 tab(s) by mouth Every day Unchanged metoprolol (Lopressor 25mg--USE metoprolol tartrate 25 mg oral tablet) 1 tab(s) by mouth Two (2) times a day TAKE 1 TABLET BY MOUTH TWICE A DAY Please take this list to your next doctor s visit. Bring all medications you take, including over the counter medications, herbals and other supplements with you to your doctor s visit. Patients and families are reminded to discard old lists and to update any records with all medication providers or retail pharmacies. Medication Leaflets acetaminophen and hydrocodone (a SEET a MIN oh fen and jacquelyn moises KOE done) Lortab Elixir, Verdrocet What is the most important information I should know about acetaminophen and hydrocodone? MISUSE OF OPIOID MEDICINE CAN CAUSE ADDICTION, OVERDOSE, OR . Keep the medication in a place where others cannot get to it. Taking opioid medicine during may cause life-threatening withdrawal symptoms in the . Fatal side effects can occur if you use opioid medicine with alcohol, or with other drugs that cause drowsiness or slow your breathing. Stop taking this medicine and call your doctor right away if you have skin redness or a rash that spreads and causes blistering and peeling. What is acetaminophen and hydrocodone? Acetaminophen and hydrocodone is a combination medicine used to relieve moderate to severe pain. Acetaminophen and hydrocodone contains an opioid medicine, and may be habit-forming. Acetaminophen and hydrocodone may also be used for purposes not listed in this medication guide. What should I discuss with my healthcare provider before taking acetaminophen and hydrocodone? You should not use this medicine if you are allergic to acetaminophen or hydrocodone, or if you have: severe asthma or breathing problems; or a blockage in your stomach or intestines. Tell your doctor if you have ever had: breathing problems, sleep apnea (breathing stops during sleep); liver disease; a drug or alcohol addiction; kidney disease; a head injury or seizures; urination problems; or problems with your thyroid, pancreas, or gallbladder. If you use opioid medicine while you are , your baby could become dependent on the drug. This can cause life-threatening withdrawal symptoms in the baby after it is born. Babies born dependent on opioids may need medical treatment for several weeks. Ask a doctor before using opioid medicine if you are . Tell your doctor if you notice severe drowsiness or slow breathing in the nursing baby. How should I take acetaminophen and hydrocodone? Follow all directions on your prescription label. Never take this medicine in larger amounts, or for longer than prescribed. An overdose can damage your liver or cause . Tell your doctor if you feel an increased urge to use more of this medicine. Never share this medicine with another person, especially someone with a history of drug abuse or addiction. MISUSE CAN CAUSE ADDICTION, OVERDOSE, OR . Keep the medicine in a place where others cannot get to it. Selling or giving away this medicine is against the law. Measure liquid medicine carefully. Use the dosing syringe provided, or use a medicine dose-measuring device (not a kitchen spoon). If you need surgery or medical tests, tell the doctor ahead of time that you are using this medicine. You should not stop using this medicine suddenly. Follow your doctor's instructions about tapering your dose. Store at room temperature away from moisture and heat. Keep track of your medicine. You should be aware if anyone is using it improperly or without a prescription. Do not keep leftover opioid medication. Just one dose can cause in someone using this medicine accidentally or improperly. Ask your pharmacist where to locate a drug take-back disposal program. If there is no take-back program, flush the unused medicine down the toilet. What happens if I miss a dose? Since this medicine is used for pain, you are not likely to miss a dose. Skip any missed dose if it is almost time for your next dose. Do not use two doses at one time. What happens if I overdose? Seek emergency medical attention or call the Poison Help line at . An overdose of this medicine can be fatal, especially in a child or other person using the medicine without a prescription. Overdose symptoms may include nausea, vomiting, sweating, severe drowsiness, pinpoint pupils, slow breathing, or no breathing. Your doctor may recommend you get naloxone (a medicine to reverse an opioid overdose) and keep it with you at all times. A person caring for you can give the naloxone if you stop breathing or don't wake up. Your caregiver must still get emergency medical help and may need to perform CPR (cardiopulmonary resuscitation) on you while waiting for help to arrive. Anyone can buy naloxone from a pharmacy or local health department. Make sure any person caring for you knows where you keep naloxone and how to use it. What should I avoid while taking acetaminophen and hydrocodone? Avoid driving or operating machinery until you know how this medicine will affect you. Dizziness or drowsiness can cause falls, accidents, or severe injuries. Do not drink alcohol. Dangerous side effects or could occur. Ask a doctor or pharmacist before using any other medicine that may contain acetaminophen (sometimes abbreviated as APAP). Taking certain medications together can lead to a fatal overdose. What are the possible side effects of acetaminophen and hydrocodone? Get emergency medical help if you have signs of an allergic reaction: hives; difficulty breathing; swelling of your face, lips, tongue, or throat. Opioid medicine can slow or stop your breathing, and may occur. A person caring for you should give naloxone and/or seek emergency medical attention if you have slow breathing with long pauses, blue colored lips, or if you are hard to wake up. In rare cases, acetaminophen may cause a severe skin reaction that can be fatal. This could occur even if you have taken acetaminophen in the past and had no reaction. Stop taking this medicine and call your doctor right away if you have skin redness or a rash that spreads and causes blistering and peeling. Call your doctor at once if you have: noisy breathing, sighing, shallow breathing, breathing that stops; a light-headed feeling, like you might pass out; liver problems--nausea, upper stomach pain, tiredness, loss of appetite, dark urine, frandy-colored stools, jaundice (yellowing of the skin or eyes); low cortisol levels-- nausea, vomiting, loss of appetite, dizziness, worsening tiredness or weakness; o high levels of serotonin in the body--agitation, hallucinations, fever, sweating, shivering, fast heart rate, muscle stiffness, twitching, loss of coordination, nausea, vomiting, diarrhea. Serious breathing problems may be more likely in older adults and in those who are debilitated or have wasting syndrome or chronic breathing disorders. Common side effects include: dizziness, drowsiness, feeling tired; nausea, vomiting, stomach pain; constipation; or headache. This is not a complete list of side effects and others may occur. Call your doctor for medical advice about side effects. You may report side effects to FDA at 0-581-PBL-3684. What other drugs will affect acetaminophen and hydrocodone? You may have breathing problems or withdrawal symptoms if you start or stop taking certain other medicines. Tell your doctor if you also use an antibiotic, antifungal medication, heart or blood pressure medication, seizure medication, or medicine to treat HIV or hepatitis C. Opioid medication can interact with many other drugs and cause dangerous side effects or . Be sure your doctor knows if you also use: cold or allergy medicines, bronchodilator asthma/COPD medication, or a diuretic ('water pill'); medicines for motion sickness, irritable bowel syndrome, or overactive bladder; other opioids--opioid pain medicine or prescription cough medicine; a sedative like Valium--diazepam, alprazolam, lorazepam, Xanax, Klonopin, Versed, and others; drugs that make you sleepy or slow your breathing--a sleeping pill, muscle relaxer, medicine to treat mood disorders or mental illness; drugs that affect serotonin levels in your body--a stimulant, or medicine for depression, Parkinson's disease, migraine headaches, serious infections, or nausea and vomiting. This list is not complete. Other drugs may affect acetaminophen and hydrocodone, including prescription and ucda-cxl-rcakllt medicines, vitamins, and herbal products. Not all possible interactions are listed here. Where can I get more information? Your doctor or pharmacist can provide more information about acetaminophen and hydrocodone. Remember, keep this and all other medicines out of the reach of children, never share your medicines with others, and use this medication only for the indication prescribed. Every effort has been made to ensure that the information provided by [employer]. ('[employer]') is accurate, up-to-date, and complete, but no guarantee is made to that effect. Drug information contained herein may be time sensitive. [employer] information has been compiled for use by healthcare practitioners and consumers in the [place] and therefore [employer] does not warrant that uses outside of the [place] are appropriate, unless specifically indicated otherwise. [employer]'s drug information does not endorse drugs, diagnose patients or recommend therapy. [employer]Ways drug information is an informational resource designed to assist licensed healthcare practitioners in caring for their patients and/or to serve consumers viewing this service as a supplement to, and not a substitute for, the expertise, skill, knowledge and judgment of healthcare practitioners. The absence of a warning for a given drug or drug combination in no way should be construed to indicate that the drug or drug combination is safe, effective or appropriate for any given patient. [facility] does not assume any responsibility for any aspect of healthcare administered with the aid of information [facility] provides. The information contained herein is not intended to cover all possible uses, directions, precautions, warnings, drug interactions, allergic reactions, or adverse effects. If you have questions about the drugs you are taking, check with your doctor, nurse or pharmacist. Copyright 9224-2560 [facility] [employer]. Version: 19.. Revision Date: 12/04/2022. cephalexin (sef a AUDREY in) What is the most important information I should know about cephalexin? You should not use this medicine if you are allergic to cephalexin or to similar antibiotics, such as Ceftin, Cefzil, Omnicef, and others. Tell your doctor if you are allergic to any drugs, especially penicillins or other antibiotics. What is cephalexin? Cephalexin is a cephalosporin (SEF a low spor in) antibiotic that is used to treat bacterial infections of the lungs, ear, skin, bones, bladder, and kidneys. Cephalexin is used to treat infections in adults and children who are at least 1 year old. Cephalexin may also be used for purposes not listed in this medication guide. What should I discuss with my healthcare provider before taking cephalexin? You should not use this medicine if you are allergic to cephalexin or any other cephalosporin antibiotic (cefdinir, cefadroxil, cefoxitin, cefprozil, ceftriaxone, cefuroxime, Omnicef, and others). Tell your doctor if you have ever had: an allergy to any drug (especially penicillin); liver or kidney disease; or intestinal problems, such as colitis. The liquid form of cephalexin may contain sugar. This may affect you if you have diabetes. Tell your doctor if you are or breast-feeding. How should I take cephalexin? Follow all directions on your prescription label and read all medication guides or instruction sheets. Use the medicine exactly as directed. Do not use cephalexin to treat any condition that has not been checked by your doctor. Measure liquid medicine carefully. Use the dosing syringe provided, or use a medicine dose-measuring device (not a kitchen spoon). Use this medicine for the full prescribed length of time, even if your symptoms quickly improve. Skipping doses can increase your risk of infection that is resistant to medication. Cephalexin will not treat a viral infection such as the flu or a common cold. Do not share cephalexin with another person, even if they have the same symptoms you have. This medicine can affect the results of certain medical tests. Tell any doctor who treats you that you are using cephalexin. Store the tablets and capsules at room temperature away from moisture, heat, and light. Store the liquid medicine in the refrigerator. Throw away any unused liquid after 14 days. What happens if I miss a dose? Take the medicine as soon as you can, but skip the missed dose if it is almost time for your next dose. Do not take two doses at one time. What happens if I overdose? Seek emergency medical attention or call the Poison Help line at . Overdose symptoms may include nausea, vomiting, stomach pain, diarrhea, and blood in your urine. What should I avoid while taking cephalexin? Antibiotic medicines can cause diarrhea, which may be a sign of a new infection. If you have diarrhea that is watery or bloody, call your doctor before using anti-diarrhea medicine. What are the possible side effects of cephalexin? Get emergency medical help if you have signs of an allergic reaction (hives, difficult breathing, swelling in your face or throat) or a severe skin reaction (fever, sore throat, burning eyes, skin pain, red or purple skin rash with blistering and peeling). Call your doctor at once if you have: severe stomach pain, diarrhea that is watery or bloody (even if it occurs months after your last dose); unusual tiredness, feeling light-headed or short of breath; easy bruising, unusual bleeding, purple or red spots under your skin; a seizure; pale skin, cold hands and feet; yellowed skin, dark colored urine; fever, weakness; or pain in your side or lower back, painful urination. Common side effects may include: diarrhea; nausea, vomiting; indigestion, stomach pain; or vaginal itching or discharge. This is not a complete list of side effects and others may occur. Call your doctor for medical advice about side effects. You may report side effects to FDA at 7-564-OTN-1263. What other drugs will affect cephalexin? Tell your doctor about all your other medicines, especially: metformin; or probenecid. This list is not complete. Other drugs may affect cephalexin, including prescription and zxog-jmx-inisyuj medicines, vitamins, and herbal products. Not all possible drug interactions are listed here. Where can I get more information? Your pharmacist can provide more information about cephalexin. Remember, keep this and all other medicines out of the reach of children, never share your medicines with others, and use this medication only for the indication prescribed. Every effort has been made to ensure that the information provided by [employer]. ('[employer]') is accurate, up-to-date, and complete, but no guarantee is made to that effect. Drug information contained herein may be time sensitive. [employer] information has been compiled for use by healthcare practitioners and consumers in the [place] and therefore [employer] does not warrant that uses outside of the [place] are appropriate, unless specifically indicated otherwise. [employer]ays drug information does not endorse drugs, diagnose patients or recommend therapy. [employer]ays drug information is an informational resource designed to assist licensed healthcare practitioners in caring for their patients and/or to serve consumers viewing this service as a supplement to, and not a substitute for, the expertise, skill, knowledge and judgment of healthcare practitioners. The absence of a warning for a given drug or drug combination in no way should be construed to indicate that the drug or drug combination is safe, effective or appropriate for any given patient. [employer] does not assume any responsibility for any aspect of healthcare administered with the aid of information [employer] provides. The information contained herein is not intended to cover all possible uses, directions, precautions, warnings, drug interactions, allergic reactions, or adverse effects. If you have questions about the drugs you are taking, check with your doctor, nurse or pharmacist. Copyright 8712-7094 [employer]. Version: 12.. Revision Date: 11/15/2022. Education Materials Urinary Tract Infections in Women Urinary tract infections (UTIs) are most often caused by bacteria. These bacteria enter the urinary tract. The bacteria may come from outside the body. Or they may travel from the skin outside the rectum or vagina into the urethra. Female anatomy makes it easy for bacteria from the bowel to enter a woman s urinary tract, which is the most common source of UTI. This means women develop UTIs more often than men. Pain in or around the urinary tract is a common UTI symptom. But the only way to know for sure if you have a UTI for the healthcare provider to test your urine. The two tests that may be done are the urinalysis and urine culture. Types of UTIs Cystitis. A bladder infection (cystitis) is the most common UTI in women. You may have urgent or frequent urination. You may also have pain, burning when you urinate, and bloody urine. Urethritis. This is an inflamed urethra, which is the tube that carries urine from the bladder to outside the body. You may have lower stomach or back pain. You may also have urgent or frequent urination. Pyelonephritis. This is a kidney infection. If not treated, it can be serious and damage your kidneys. In severe cases, you may need to stay in the hospital. You may have a fever and lower back pain. Medicines to treat a UTI Most UTIs are treated with antibiotics. These kill the bacteria. The length of time you need to take them depends on the type of infection. It may be as short as 3 days. If you have repeated UTIs, you may need a low-dose antibiotic for several months. Take antibiotics exactly as directed. Don t stop taking them until all of the medicine is gone. If you stop taking the antibiotic too soon, the infection may not go away. You may also develop a resistance to the antibiotic. This can make it much harder to treat. Lifestyle changes to treat and prevent UTIs The lifestyle changes below will help get rid of your UTI. They may also help prevent future UTIs. Drink plenty of fluids. This includes water, juice, or other caffeine-free drinks. Fluids help flush bacteria out of your body. Empty your bladder. Always empty your bladder when you feel the urge to urinate. And always urinate before going to sleep. Urine that stays in your bladder can lead to infection. Try to urinate before and after sex as well. Practice good personal hygiene. Wipe yourself from front to back after using the toilet. This helps keep bacteria from getting into the urethra. Use condoms during sex. These help prevent UTIs caused by sexually transmitted bacteria. Also don't use spermicides during sex. These can increase the risk for UTIs. Choose other forms of control instead. For women who tend to get UTIs after sex, a low-dose of a preventive antibiotic may be used. Be sure to discuss this option with your healthcare provider. Follow up with your healthcare provider as directed. He or she may test to make sure the infection has cleared. If needed, more treatment may be started. 7950-1120 [employer]. [address] [place] [address]. All rights reserved. This information is not intended as a substitute for professional medical care. Always follow your healthcare professional's instructions. Abdominal Pain Abdominal pain is pain in the stomach or belly area. Everyone has this pain from time to time. In many cases it goes away on its own. But abdominal pain can sometimes be due to a serious problem, such as appendicitis. So it s important to know when to get help. Causes of abdominal pain There are many possible causes of abdominal pain. Common causes in adults include: Constipation, diarrhea, or gas Stomach acid flowing back up into the esophagus (acid reflux or heartburn) Severe acid reflux, called GERD (gastroesophageal reflux disease) A sore in the lining of the stomach or small intestine (peptic ulcer) Inflammation of the gallbladder, liver, or pancreas Gallstones or kidney stones Appendicitis Intestinal blockage An internal organ pushing through a muscle or other tissue (hernia) Urinary tract infections In women, menstrual cramps, fibroids, ovarian cysts, pelvic inflammatory disease, or endometriosis Inflammation or infection of the intestines, including Crohn's disease and ulcerative colitis Irritable bowel syndrome Diagnosing the cause of abdominal pain Your healthcare provider will give you a physical exam help find the cause of your pain. If needed, you will have tests. Belly pain has many possible causes. So it can be hard to find the reason for your pain. Giving details about your pain can help. Tell your provider where and when you feel the pain, and what makes it better or worse. Also let your provider know if you have other symptoms such as: Fever Tiredness Upset stomach (nausea) Vomiting Changes in bathroom habits Blood in the stool or black, tarry stool Weight loss that you can't explain (involuntary weight loss?) Also report any family history of stomach or intestinal problems, or cancers. Tell your provider about all your alcohol use and drug use. Tell your provider about all medicines you use, including herbs, vitamins, and supplements. Treating abdominal pain Some causes of pain need emergency medical treatment right away. These include appendicitis or a bowel blockage. Other problems can be treated with rest, fluids, or medicines. Your healthcare provider can give you specific instructions for treatment or self-care based on what is causing your pain. If you have vomiting or diarrhea, sip water or other clear fluids. When you are ready to eat solid foods again, start with small amounts of isgs-nv-ylfeow, low-fat foods. These include apple sauce, toast, or crackers. When to get medical care Call 911 or go to the hospital right away if you: Can t pass stool and are vomiting Are vomiting blood or have bloody diarrhea or black, tarry diarrhea Have chest, neck, or shoulder pain Feel like you might pass out Have pain in your shoulder blades with nausea Have sudden, severe belly pain Have new, severe pain unlike any you have felt before Have a belly that is rigid, hard, and hurts to touch Call your healthcare provider if you have: Pain for more than 5 days Bloating for more than 2 days Diarrhea for more than 5 days A fever of 100.4 F (38 C) or higher, or as directed by your healthcare provider Pain that gets worse Weight loss for no reason Continued lack of appetite Blood in your stool How to prevent abdominal pain Here are some tips to help prevent abdominal pain: Eat smaller amounts of food at each meal. Don't eat greasy, fried, or other high-fat foods. Don't eat foods that give you gas. Exercise regularly. Drink plenty of fluids. To help prevent GERD symptoms: Quit smoking. Reduce alcohol and foods that increase stomach acid. Don't use aspirin or munt-zdg-useqeag pain and fever medicines, if possible. This includes nonsteroidal anti-inflammatory drugs (NSAIDs). Lose excess weight. Finish eating at least 2 hours before you go to bed or lie down. Raise the head of your bed. [id number] [employer]. [address] [place] [address], [place] [address]. All rights reserved. This information is not intended as a substitute for professional medical care. Always follow your healthcare professional's instructions. Additional Information VACCINATE! IT SAVES LIVES! Members of the community who have not yet received the COVID-19 vaccine and would like to receive it can visit one of [facility] vaccine clinics. There are many vaccine clinic locations within the [facility]. For locations and available times, please visit [email or web address] [email or web address] It is important to note that some COVID mobile vaccine clinics are held outdoors and may be canceled in rainy or stormy conditions. To learn more about pediatric vaccinations (ages 5-11), we invite you to visit the [facility] webpage. https://www.[facility].org/p ages/8157-Ohwwq-Anhctmglxxa-Freq pcryfx-Prxlf-Bxxpaxjat.html To learn more about the COVID-19 vaccine, we invite you to visit the CDC website for a list of frequently asked questions. https://www.cdc.gov/coronavirus/ 2019-ncov/vaccines/faq.html [employer] Patient Portal Access Instructions: Stay connected with your healthcare team and access your personal medical information anytime with the [employer] Patient Portal. If you would like a full copy of your medical records please contact the [facility] Medical Records Department Sunday through Sunday between 8a.m. and 4:30p.m. Please follow the directions below to access the portal: 1.Access the email account you provided upon registration to the hospital.2.Look for an invitation email from [facility].3.Open the email and access the invitation link: Accept Invitation to [employer]4.Fill in the required wilson to create your account. Sign into [email or web address] with your username and password that you created in the above steps to stay up to date. You can then view a summary of results, a summary of your visits, and the ability to download your summaries to your computer or send the information securely to a physician. Remember that your healthcare information is confidential, so carefully consider who you will allow to register on the [employer] Patient Portal for access to your information. You can also access the [employer] Patient Portal on the [employer]. Simply click on Health Records under Health Data and then click on the [employer] logo. HOW TO SAFELY DISPOSE OF PRESCRIPTION MEDICATIONS Please use one of the following methods to safely dispose of your unused medications. 1.Use a drug disposal kit: the drug disposal pouch allows you to safely discard your old and unused drugs. Ask your nurse to give you one when you are discharged.2.Visit a local take-back location: Many local pharmacies and police departments have programs that collect old and unwanted prescription drugs. Call your local pharmacy or go to http://angelMD.BATTERIES & BANDS/5M8Is7u to find one close to you.3.Make use of household items: Use cat litter or old coffee grounds to dispose medications if other options are not available. Mix your drugs with these household products, seal them in an airtight container and throw it into the garbage. Call [facility]: [phone] to be sure your drugs can be disposed of in this way. Some medicines may require a different approach.4.Never flush your medications down the toilet. IF YOU HAVE BEEN PRESCRIBED AN OPIOIDS FOR PAIN If you have been prescribed an opioid (such as hydrocodone, oxycodone or morphine), it is critical to understand the possible side effects and risks of opioid pain medications. Even when taken as directed, opioids can have several side effects including: Tolerance, meaning you might need to take more of a medication for the same pain relief. Nausea, vomiting and/or constipation. Sleepiness, dizziness, dry mouth, confusion, depression or itching. Physical dependence, meaning you have withdrawal symptoms when a medication is stopped ? this can develop within a few days. KNOW YOUR RESPONSIBILITIES It is important to know exactly how much and how often to take the opioid pain medications you are prescribed. Never take opioids in higher amounts or more often than prescribed. Do not combine opioids with alcohol or other drugs that cause drowsiness, such as benzodiazepines, also known as benzos, including diazepam and alprazolam, muscle relaxants or sleep aids. Never sell or share prescription opioids. This is illegal. Store opioids in a secure place and out of reach of others (including children, family, friends and visitors). The last page(s) of this document has been signed and retained as a CHART COPY Signatures Patient Education Materials Urinary Tract Infections in Women Abdominal Pain Medication Leaflets acetaminophen and hydrocodone, cephalexin My discharge plan and instructions have been reviewed and explained to me and ITAY BARBARA understand my current condition and have read and understand these discharge instructions. I have received a written copy of the plan/instructions. If I have questions, I am aware that I should contact my doctor. Patient/Cardiac Cath Tech Signature: Date/Time: Relationship to Patient: Witness Name/Signature: Date/Time: [facility] 03-09-2023 Note ORIGINAL EXAMINATION: CT OF THE ABDOMEN AND PELVIS WITHOUT CONTRAST TECHNIQUE: CT of the abdomen and pelvis was performed without the administration of intravenous contrast. Multiplanar reformatted images are provided for review. Automated exposure control, iterative reconstruction, and/or weight based adjustment of the mA/kV was utilized to reduce the radiation dose to as low as reasonably achievable. COMPARISON: None HISTORY: ORDERING SYSTEM PROVIDED HISTORY: Reason for Exam: abdominal pain FINDINGS: Small sliding type hiatal hernia. The bowel is not dilated and the mural thickness is within normal limits. The appendix is normal. There is moderate descending and sigmoid colon diverticulosis without adjacent fatty infiltrative changes to suggest diverticulitis. The liver, spleen, pancreas and adrenal glands are unremarkable. The gallbladder is surgically absent. Mild renal cortical scarring of the normal-sized kidneys. The ureters are normal in course and caliber. The urinary bladder is partially decompressed. No abdominopelvic lymphadenopathy, free air or fluid. There is moderate aortoiliac atherosclerotic disease. Lung bases are clear. The heart is normal in size without pericardial effusion. Small fat containing umbilical hernia. Decreased bone mineralization. No acute osseous abnormality. Variable multilevel degenerative changes centered around L3-L4. There is an age indeterminate L4 vertebral body compression deformity. IMPRESSION: No evidence of urolithiasis bilaterally. Moderate diverticulosis without diverticulitis. Age indeterminate compression deformity of the L4 vertebral body. I have personally reviewed the images of this examination and agree with the resident's findings and interpretation. Interpreted by: Alex Hernandez MD Preliminary Report By: Amrit Rootally signed By Alex Hernandez MD Dictated Date: 03/09/2023 5:56:08 PM Prelim Date: 03/09/2023 6:08:11 PM Sign Date: 03/09/2023 6:18:39 PM Ordering Provider: JALYN MCADAMS [facility] Evaluation + Plan note No data available for this section [facility] Summary Purpose Family History No Family History Records Found Advance Directives No Advanced Directives Records FoundNo Advanced Directives Records Found Additional Source Comments Patient Care team informatio n (unrecognized section and content) Care Team Personnel Name: HAWA RAMSAY MD Member Role: Primary Care Physician Address: Address: [address] [place] [address] Name: JALYN MCADAMS MD Position: ED Physician Member Role: ED Physician Address: Address: [address] [place] [address] Name: ROBIN Nice Position: RN Member Role: ED RN Care Team Related Persons Name: VALERIANO POON Name: DAMIAN POON Care Team Personnel Name: HAWA RAMSAY MD Member Role: Primary Care Physician Address: Address: [address] [place] [address] Name: HUMBERTO WHALEN MD Position: ED Physician Member Role: ED Physician Address: Address: [address] [place] [address] Name: Luis Solorio RN Position: ED RN Member Role: ED RN Care Team Related Persons Name: VALERIANO POON Name: DAMIAN POON INFORMATION SOURCE (unrecogn ized section and content) DATE CREATED AUTHOR AUTHOR'S ORGANIZ ATION 05/03/2023 [facility] ([place]) FOR RECORDS PERTAINING TO PATIENTS WHO ARE OR HAVE BEEN ENROLLED IN A CHEMICAL DEPENDENCY/SUBSTANCEABUSE PROGRAM, SOME INFORMATION MAY BE OMITTED. This clinical summary was aggregated from multiple sources. Caution should be exercised in using it in the provision of clinical care. This summary normalizes information from multiple sources, and as a consequence, information in this document may materially change the coding, format and clinical context of patient data. In addition, data may be omitted in some cases. CLINICAL DECISIONS SHOULD BE BASED ON THE PRIMARY CLINICAL RECORDS. [facility] [employer] [facility]. provides no warranty or guarantee of the accuracy or completeness of information in this document.
--- NOTE | 2023-05-03 22:40 | EX.ED.DYSGE1 ---
HPI History of Present Illness Chief Complaint: Complaint Informant: patient and family Narrative Narrative: 77-year-old female with multiple medical problems including chronic kidney disease coronary artery disease and diabetes presenting to the emergency department inability evaluated. She states she had a Lim catheter that was placed for urinary retention and saw urology today and had the catheter removed. She states she has been unable to urinate since. She has had a pain in the lower left abdomen since the end of February. She reports constipation x 3 days and picked up Sergey fernandez to help. She states that she has had a kidney infection for months and has not resolved. She feels chilled. She does not recall what antibiotic she was on. She recalls going to outside hospitals emergency department at the end of February and was diagnosed with UTI. She states she seen her primary care doctor for this. She tells me that she has a hiatal hernia that has a tear in it. She reiterates the same information multiple times and when asked for further details cannot provide them. She tells me she has information at home. Daughter in the room has a book of dates but I am not able to really get much clarity on progression of symptoms or specifics of treatment. She states that she recently was treated for shingles of the sacrum and perineum extending up onto the inner thigh. She states those lesions are crusted over. She was also started on metformin to get my blood sugar down so I can have a knee replacement . A lot of her care is not available in the computer for me to review. [facility] Medical History Arthritis Atherosclerotic heart disease of [place] coronary artery without angina pectoris COPD (chronic obstructive pulmonary disease) Diabetes mellitus type II, uncontrolled Diastolic dysfunction Diverticulosis Essential hypertension Gastroparesis GERD (gastroesophageal reflux disease) Heart disease Hiatal hernia HLD (hyperlipidemia) Kidney disease NSTEMI (non-ST elevated myocardial infarction) (12/03/13) Old myocardial infarction PAD (peripheral artery disease) Pancreatic atrophy Presence of stent in coronary artery (~02/07/22) Syncope Home Medications lisinopril 20 mg tablet 20 mg PO DAILY bp 02/10/15 [History Last Taken 07/13/22] aspirin 81 mg tablet,delayed release 81 mg PO DAILY@0800 pain 02/18/20 [History Last Taken 07/13/22] cholecalciferol (vitamin D3) 50 mcg (2,000 unit) capsule 50 mcg PO DAILY vitamin 12/09/20 [History Last Taken Unknown] vit [id number] 500 mg-50 mg-25 mg-40 mg tablet (Bioflex) 2 tab PO DAILY 06/28/22 [History Last Taken Unknown] vitamin E mixed 400 unit tablet 400 unit PO DAILY 06/28/22 [History Last Taken Unknown] glipizide 5 mg tablet, extended release 24 hr 5 mg PO DAILY 09/25/22 [History Last Taken Unknown] metoprolol tartrate 25 mg tablet 25 mg PO BID #180 tabs 01/31/23 [Rx Last Taken Unknown] finerenone 10 mg tablet (Kerendia) 20 mg PO DAILY kidneys 03/29/23 [History Last Taken Unknown] nitroglycerin 0.4 mg sublingual tablet 0.4 mg sublingual Q5M PRN Chest Pain #25 tabs 03/29/23 [Rx Last Taken Unknown] omeprazole 40 mg capsule,delayed release 40 mg PO DAILY 03/29/23 [History Last Taken Unknown] pyridoxine (vitamin B6) 100 mg tablet 100 mg PO DAILY 03/29/23 [History Last Taken Unknown] ezetimibe 10 mg tablet (Zetia) 10 mg PO DAILY #90 tabs 05/01/23 [Rx Last Taken Unknown] hydrocodone-acetaminophen 5-325mg 5mg-325mg 1 tab PO Q6H PRN PRN Pain 3 days #10 TABLETS 05/04/23 [Rx Last Taken Unknown] magnesium citrate 300 ml PO X1 #1 BOTTLE 05/04/23 [Rx Last Taken Unknown] Allergy/AdvReac Type Severity Reaction Status Date / Time benzonatate Allergy lip, Verified 05/03/23 21:19 [From Tesmehnaz Patel] tongue swelling omeprazole [From Prilosec] AdvReac Other Verified 05/03/23 21:19 omeprazole magnesium AdvReac Other Verified 05/03/23 21:19 [From Prilosec] Family History Father Myocardial infarction Sister CAD (coronary artery disease) CABG X 5 Brother CAD (coronary artery disease) Sister Sudden cardiac , Onset Age: 49 Surgical History History of cataract extraction History of section History of cholecystectomy (~2013) History of tonsillectomy Presence of coronary angioplasty implant and graft (02/07/22) S/P PTCA (percutaneous transluminal coronary angioplasty) Social History Smoking Status: Former smoker how long ago did patient quit smokin years ago alcohol intake: never substance use type: does not use caffeine: No ROS ROS ED Constitutional Constitutional ED: Reports chills; Denies fever(s) or weight loss Eyes Eyes: Denies change in vision or diplopia ENT ENT ED: Denies ear pain, rhinorrhea or sore throat Cardiovascular Cardiovascular: Denies chest pain, orthopnea, palpitations or racing heartbeat Respiratory/Chest Respiratory/Chest: Denies cough, dyspnea or orthopnea Gastrointestinal Gastrointestinal: Reports abdominal pain and constipation; Denies diarrhea, nausea or vomiting Genitourinary Genitourinary ED: Reports other Details: Urinary retention ; Denies dysuria, hematuria or urinary frequency Musculoskeletal Musculoskeletal: Reports back pain; Denies arthralgias or myalgias Integumentary Reports rash; Denies abscess Neurologic Neurologic: Denies headache(s) or weakness Psychiatric Psychiatric: Denies anxiety, depression, suicidal ideation or suicidal thoughts Endocrine Endocrinology: Denies polydipsia, polyphagia or polyuria Allergic/Immunologic Allergic/Immunologic ED: Denies mouth swelling, tongue swelling or urticaria EXAM Physical Exam Const Vital Signs: 05/03/23 21:17 Temperature 97.9 F Temperature Source Temporal Pulse Rate 82 Respiratory Rate 18 Blood Pressure 173/57 H Blood Pressure Mean 95 Pulse Ox 100 Oxygen Delivery Method Room Air Positive well nourished and well developed General Appearance ED: well developed HEENT Reports normocephalic, head/scalp atraumatic and moist mucous membranes Eyes PERRL and EOMs intact bilaterally Neck no lymphadenopathy, supple and no JVD Resp normal respiratory effort and clear to auscultation bilaterally Cardio regular rate, regular rhythm and no murmurs GI Inspection: Negative for abdominal distention Palpation: soft, tender and guarding Back/Spine no CVA tenderness and normal ROM Extremity normal to inspection General Extremety ED: Negative for edema General Extremity: Negative for edema Neuro oriented x3 and CN's II-XII intact bilaterally Sensorium / Orientation: alert Motor Exam: strength 5/5 throughout Psych mental status grossly normal Mood & Affect: Negative for depressed or tearful Skin no wounds Skin Narrative: Crusted lesions of the sacrum and perineum consistent with resolving shingles MDM MDM MDM Narrative Medical decision making narrative: Lim catheter was replaced which relieved the urinary retention. Basic blood work was negative. Showed chronic kidney disease with a creatinine 1.9 a BUN of 44. Potassium normal 5.1. Urinalysis shows no overt infection. CT abdomen pelvis demonstrates some compression fractures but no intra-abdominal findings to explain her pain. She does seem to have an abundance of stool which is the constipation that she has been feeling for the past 3 days. The compression fracture she states that she knows about. She states that she has seen a spine surgeon for them. I do wonder if this burning left lower quadrant pain may be related to the compression fracture. It is burning and makes me think of neuropathic pain. It has been chronic. She may wish to revisit with her spine surgeon. History & Record Review Discussion w/independent historian: Patient and Family Additional record(s) reviewed:: Prior outpatient record, Prior ED visit and Prior labs Lab Data Attestation: I reviewed the patient's lab results. Labs: Laboratory Results - last 24 hr 05/03/23 05/03/23 22:20 22:45 WBC 8.8 RBC 3.69 L Hgb 10.9 L Hct 33.1 L MCV 89.7 MCH 29.5 MCHC 32.9 RDW Std Deviation 38.3 RDW Coeff of Titus 12.0 Plt Count 323 MPV 10.4 Immature Gran % (Auto) 0.600 Neut % (Auto) 62.0 Lymph % (Auto) 26.3 [place] % (Auto) 7.8 Eos % (Auto) 1.4 Baso % (Auto) 1.9 H Absolute Neuts (auto) 5.5 Absolute Lymphs (auto) 2.32 Nucleated RBC % 0 PT 14.0 INR 1.1 APTT 25.3 Sodium 135 L Potassium 5.1 Chloride 104 Carbon Dioxide 24.0 Anion Gap 7 BUN 44 H Creatinine 1.90 H Estim Creat Clear Calc 20.16 Est GFR (MDRD) Af Amer 33 L Est GFR (MDRD) Non-Af 27 L BUN/Creatinine Ratio 23.2 H Glucose 218 H Calcium 10.4 H Total Bilirubin 0.30 AST 14 L ALT 19 Alkaline Phosphatase 122 H Total Protein 7.0 Albumin 3.7 Globulin 3.3 Albumin/Globulin Ratio 1.1 Urine Color Yellow Urine Clarity Clear Urine pH 5.0 Ur Specific [place] 1.015 Urine Protein 100 H Urine Glucose (UA) 100 H Urine Ketones Negative Urine Occult Blood 10 H Urine Nitrite Negative Urine Bilirubin Negative Urine Urobilinogen Normal Ur Leukocyte Esterase 25 H Urine RBC 0-5 SEEN Urine WBC 0-5 SEEN Ur Squamous Epith Cells 0-5 SEEN Urine Bacteria 0 SEEN Urine Mucus 0 SEEN Urine Yeast RARE Radiography Diagnostic Testing: Clinical Impression(s) from Imaging Studies Abdomen/Pelvis CT 05/03/23 23:17 IMPRESSION: No acute intra-abdominal findings. Compression fractures T12 likely acute/subacute, and L4 probably subacute resulting in central canal stenosis, new compared to prior study. MRI recommended for further evaluation. Colonic diverticulosis without evidence of acute diverticulitis. Electronically Signed: Yessenia Knpap MD at 0:16 EST , Discharge Plan Triage Chief Complaint: Complaint ED Provider: Stephen Bazea Dx/Rx/DC Orders Clinical Impression: Herpes zoster, Neuropathic pain, Acute urinary retention, Abdominal pain Instructions: ED Urinary Retention, Female Prescriptions: New hydrocodone-acetaminophen [hydrocodone-acetaminophen] 5-325 mg tablet 1 tab PO Q6H PRN PRN (Reason: Pain) 3 Days Qty: 10 0RF magnesium citrate Solution 300 ml PO X1 Qty: 1 0RF No Action cholecalciferol (vitamin D3) 50 mcg (2,000 unit) capsule 50 mcg PO DAILY Bioflex 298-84-40-40 mg tablet 2 tab PO DAILY vitamin E mixed 400 unit tablet 400 unit PO DAILY glipizide 5 mg tablet extended release 24hr 5 mg PO DAILY omeprazole 40 mg capsule,delayed release(DR/EC) 40 mg PO DAILY Patient Comments: TAKE 1 CAPSULE BY MOUTH EVERY DAY pyridoxine (vitamin B6) 100 mg tablet 100 mg PO DAILY nitroglycerin 0.4 mg tablet, sublingual 0.4 mg sublingual Q5M PRN (Reason: Chest Pain) Qty: 25 6RF aspirin 81 mg tablet,delayed release (DR/EC) 81 mg PO DAILY@0800 Patient Comments: heart health lisinopril 20 MG tablet 20 mg PO DAILY Kerendia 10 mg tablet 20 mg PO DAILY Patient Comments: TAKE 1 TABLET BY MOUTH EVERY DAY FOR 30 DAYS metoprolol tartrate 25 mg tablet 25 mg PO BID Qty: 180 3RF ezetimibe [Zetia] 10 mg tablet 10 mg PO DAILY Qty: 90 3RF Primary Care Provider: Katt Ramsay Referrals: Katt Ramsay MD [Primary Care Provider] - 3-5 Days Disposition Disposition: Home, Self Care Capacity Legal Computer Field Technician Reflex Medical hold order details:: IF a medical hold is selected below, a suggested order for a MEDICAL HOLD will reflex upon signing the document. Next of kin: [place] law dictates a PRIORITY LIST for identifying legal decision-maker/legal next of kin in the following order (LNOK): 1st: The patient?s legal guardian, if any 2nd: The patient's spouse (if status is questionable, consult Risk Management) 3rd: The patient?s adult child(patti) (majority, if multiple children) 4th: The patient?s parents 5th: The patient?s adult siblings (majority, if multiple children siblings)
[2023-05-03 22:41] LABS: International Normalized Ratio 1.1; Partial Thromboplast Time 25.3 Seconds (24.1-36.2)
[2023-05-03 22:48] LABS: ALB/GLOB Ratio 1.1 RATIO (0.9-2.4); AST(SGOT) 14 U/L (15-37); Alanine Aminotransfer ALT/SGPT 19 U/L (13-56); Albumin, Serum 3.7 g/dL (3.2-5.0); Alkaline Phosphatase 122 U/L (45-117); Anion Gap 7 (5-15); BUN 44 mg/dL (7-18); BUN/Creat Ratio 23.2 RATIO (10-20); Calcium,Total 10.4 mg/dL (8.5-10.1); Chloride 104 mmol/L (98-107); EST Glomerular Filtration Rate 27 mL/min (>60); Est Glom Filt Rate - Afr Amer 33 mL/min (>60); Estimated Creatinine Clearance 20.16 ml/min; Globulin 3.3 g/dL (2.2-4.2); Glucose 218 mg/dL (74-106); Potassium 5.1 mmol/L (3.5-5.1); Sodium Level 135 mmol/L (136-145)
[2023-05-03 22:52] LABS: Bacteria 0 SEEN /hpf (None Seen); Mucous, Urine 0 SEEN /hpf (<or=2+)
[2023-05-03 22:53] LABS: Color, Urine Yellow (Yellow); Glucose, Dipstick 100 mg/dl (Normal); Ketone-Dipstick Negative (Negative); Leukocyte Esterase-Dipstick 25 /ul (Negative); Nitrite-Dipstick Negative (Negative); Occult Blood-Urine 10 /ul (Negative); Protein-Dipstick 100 mg/dl (Negative); Specific Gravity, Urine 1.015 (1.002-1.030); Urine Bilirubin Dipstick Negative (Negative); Urine Clarity Clear (Clear); Urine Urobilinogen Normal (Normal)
[2023-05-03 22:59] LABS: Red Blood Cells-Urine 0-5 SEEN /hpf (0-5); Squamous Epithelial Cells - UA 0-5 SEEN /hpf (5-10); White Blood Cells 0-5 SEEN /hpf (0-5); Yeast-Urine RARE /hpf (None Seen)
--- NOTE | 2023-05-03 23:17 | CT_ITS ---
EXAM: CT Abdomen And Pelvis W/O Contrast Injection HISTORY: pain vickers placed tonight, unable to void, this has been happening frequently, uti x 1 month with no relief, burning in left lower abd area TECHNIQUE: Routine protocol CT abdomen and pelvis. IV Contrast: None.. Oral contrast: None. RADIATION DOSAGE (If Supplied By Facility): CTDIvol = ( 6.59 ) mGy, DLP = ( 371.67 ) mGycm Individualized dose optimization techniques were used for this CT. COMPARISON: CT abdomen and pelvis 03/31/2019. LIMITATIONS: None. FINDINGS: LOWER CHEST: Included lung bases are clear. Coronary artery calcifications. LIVER: Grossly unremarkable. GALLBLADDER AND BILIARY TREE: Gallbladder not identified. Presumed surgically absent. PANCREAS: Grossly unremarkable. SPLEEN: Grossly unremarkable. ADRENAL GLANDS: Slight nodularity of the adrenal glands, unchanged. KIDNEYS AND URETERS: No calculi demonstrated. No hydronephrosis. PERITONEUM: No free air. No free fluid. BOWEL: Scattered diverticula throughout the colon. No bowel obstruction. APPENDIX: Visualized and unremarkable. No evidence of acute appendicitis. VESSELS: Abdominal aorta is normal caliber. REPRODUCTIVE ORGANS: Grossly unremarkable URINARY BLADDER: Decompressed with Vickers catheter in place. ABDOMINAL WALL: Unremarkable. BONES: Osteopenia. T12 compression fracture inferior endplate with approximately 40% vertebral body height loss likely acute or subacute. L4 compression fracture of uncertain age more likely subacute, with approximately 30-40% height loss, and 5 mm retropulsion of the posterior inferior vertebral body corner into the spinal canal resulting in moderate central canal stenosis. Both fractures are new compared to the prior CT. Other degenerative changes especially at L2-[address]/Abdomen/Pelvis without Cont IMPRESSION: No acute intra-abdominal findings. Compression fractures T12 likely acute/subacute, and L4 probably subacute resulting in central canal stenosis, new compared to prior study. MRI recommended for further evaluation. Colonic diverticulosis without evidence of acute diverticulitis. Electronically Signed: Yessenia Knapp MD at 0:16 EST ,
[2023-05-04] MEDS: Ondansetron 4 MG/2 ML Vial IV (00:58)
[2023-05-04] MEDS: Morphine 2 MG/ML Syringe IV (00:58)
[2023-05-04] MEDS: Ketorolac 15 MG/ML Vial IV (00:59)
[2023-05-04 01:05] VITALS: BP 146/60; PULSE 78; RESP 17; TEMP 36.4; O2SAT 97
== END 2023-05-04 01:24 | disposition home or self-care (01) ==
PROVIDERS: Emergency Provider Emergency Medicine; PCP Family Medicine; Visit Provider Emergency Medicine
DX: B02.9 Zoster without complications (principal); E11.40 Type 2 diabetes mellitus with diabetic neuropathy, unspecified; R33.9 Retention of urine, unspecified; I25.10 Atherosclerotic heart disease of native coronary artery without angina pectoris; R10.9 Unspecified abdominal pain; I25.2 Old myocardial infarction; Z87.891 Personal history of nicotine dependence; Z95.5 Presence of coronary angioplasty implant and graft
CPT/HCPCS: 51702; 74176; 80053; 81001; 85025; 85610; 85730; 96374; 96375; 99284; A4216; J2405

== ENCOUNTER → 2023-06-20 | Outpatient (CLI) | payer MEDICARE, SELFPAY ==
[2023-06-20 11:21] LABS: Anion Gap 8 (5-15); BUN 27 mg/dL (7-18); BUN/Creat Ratio 20.3 RATIO (10-20); Calcium,Total 10.2 mg/dL (8.5-10.1); Chloride 107 mmol/L (98-107); Creatinine, Serum 1.33 mg/dL (0.55-1.02); EST Glomerular Filtration Rate 41 mL/min (>60); Est Glom Filt Rate - Afr Amer 50 mL/min (>60); Glucose 159 mg/dL (74-106); Sodium Level 140 mmol/L (136-145)
[2023-06-20 12:45] LABS: Color, Urine Yellow (Yellow); Glucose, Dipstick Normal (Normal); Ketone-Dipstick Negative (Negative); Leukocyte Esterase-Dipstick 500 /ul (Negative); Nitrite-Dipstick Positive (Negative); Occult Blood-Urine 50 /ul (Negative); Protein-Dipstick 100 mg/dl (Negative); Urine Bilirubin Dipstick Negative (Negative); Urine Clarity Cloudy (Clear); Urine Urobilinogen Normal (Normal)
[2023-06-20 13:31] LABS: Protein, Urine (Random) 58.1 mg/dL (<11.9); Protein:Creat Ratio 1821 mg/g CRE (0-200)
== END | disposition home or self-care (01) ==
LOC: LAB 09:45
PROVIDERS: PCP Family Medicine; Referring Provider Internal Medicine Nephrology; Visit Provider Internal Medicine Nephrology
DX: N17.9 Acute kidney failure, unspecified (principal)
CPT/HCPCS: 36415; 80048; 81002; 82570; 84156

== ENCOUNTER → 2023-07-16 | Outpatient (CLI) | payer MEDICARE, SELFPAY ==
[2023-07-16 18:34] LABS: Mucous, Urine 0 SEEN /hpf (<or=2+)
[2023-07-16 19:14] LABS: Color, Urine Yellow (Yellow); Glucose, Dipstick 50 mg/dl (Normal); Ketone-Dipstick Negative (Negative); Leukocyte Esterase-Dipstick 500 /ul (Negative); Nitrite-Dipstick Positive (Negative); Occult Blood-Urine 25 /ul (Negative); Protein-Dipstick 100 mg/dl (Negative); Specific Gravity, Urine 1.015 (1.002-1.030); Urine Bilirubin Dipstick Negative (Negative); Urine Clarity Sl. Cloudy (Clear); Urine Urobilinogen Normal (Normal)
[2023-07-16 19:48] LABS: Bacteria 3+ /hpf (None Seen); Red Blood Cells-Urine 0-5 SEEN /hpf (0-5); Squamous Epithelial Cells - UA 0-5 SEEN /hpf (5-10); White Blood Cells 50-100 SEEN /hpf (0-5)
[2023-07-16 19:49] LABS: Amorphous Sediment 1+ URATE
== END | disposition home or self-care (01) ==
PROVIDERS: PCP Family Medicine; Visit Provider Physician Assistant
DX: R30.0 Dysuria (principal)
CPT/HCPCS: 81001; 87077; 87086; 87088; 87186

== ENCOUNTER → 2023-07-24 | Outpatient (CLI) | payer MEDICARE, SELFPAY ==
[2023-07-24 15:00] LABS: Anion Gap 7 (5-15); BUN 42 mg/dL (7-18); BUN/Creat Ratio 29.8 RATIO (10-20); Calcium,Total 10.6 mg/dL (8.5-10.1); Chloride 105 mmol/L (98-107); Creatinine, Serum 1.41 mg/dL (0.55-1.02); EST Glomerular Filtration Rate 39 mL/min (>60); Est Glom Filt Rate - Afr Amer 47 mL/min (>60); Glucose 280 mg/dL (74-106); Potassium 4.4 mmol/L (3.5-5.1); Sodium Level 135 mmol/L (136-145)
== END | disposition home or self-care (01) ==
LOC: LAB 08:40
PROVIDERS: PCP Family Medicine; Referring Provider Internal Medicine Nephrology; Visit Provider Internal Medicine Nephrology
DX: N17.9 Acute kidney failure, unspecified (principal)
CPT/HCPCS: 36415; 80048

== ENCOUNTER → 2023-08-27 | Outpatient (CLI) | payer MEDICARE, SELFPAY ==
[2023-08-27 19:24] LABS: Mucous, Urine 0 SEEN /hpf (<or=2+); Red Blood Cells-Urine 0 SEEN /hpf (0-5); Squamous Epithelial Cells - UA 0 SEEN /hpf (5-10)
[2023-08-27 19:48] LABS: Color, Urine Yellow (Yellow); Glucose, Dipstick Normal (Normal); Ketone-Dipstick Negative (Negative); Leukocyte Esterase-Dipstick 500 /ul (Negative); Nitrite-Dipstick Positive (Negative); Occult Blood-Urine 25 /ul (Negative); Protein-Dipstick 100 mg/dl (Negative); Specific Gravity, Urine 1.015 (1.002-1.030); Urine Bilirubin Dipstick Negative (Negative); Urine Clarity Cloudy (Clear); Urine Urobilinogen Normal (Normal)
[2023-08-27 20:54] LABS: Bacteria 3+ /hpf (None Seen); White Blood Cells >100 SEEN /hpf (0-5)
== END | disposition home or self-care (01) ==
PROVIDERS: PCP Family Medicine; Referring Provider Physician Assistant; Visit Provider Physician Assistant
DX: R82.90 Unspecified abnormal findings in urine (principal)
CPT/HCPCS: 81001; 87086; 87088; 87186

== ENCOUNTER → 2023-09-04 | Outpatient (CLI) | payer MEDICARE, SELFPAY ==
[2023-09-04 11:37] LABS: Hematocrit 37.5 % (37-47); Hemoglobin 12.4 g/dL (12.0-15.0); Mean Corp Hgb Conc 33.1 g/dL (32-36); Mean Corpuscular Hgb 30.5 pg (27.0-32.0); Mean Corpuscular Volume 92.4 fL (81-99); Mean Platelet Vol. 11.2 fl (6.2-12.0); Platelet Count 277 K/mm3 (150-450); RBC Distribution Width CV 12.1 % (11.6-14.6); RBC Distribution Width SD 41.1 fl (35.1-43.9); Red Blood Count 4.06 M/mm3 (4.2-5.4); White Blood Count 8.7 K/mm3 (4.4-11.0)
[2023-09-04 11:47] LABS: Protein, Urine (Random) 39.8 mg/dL (<11.9); Protein:Creat Ratio 452 mg/g CRE (0-200)
[2023-09-04 12:05] LABS: Albumin, Serum 3.9 g/dL (3.2-5.0); BUN 41 mg/dL (7-18); BUN/Creat Ratio 29.3 RATIO (10-20); Calcium,Total 10.4 mg/dL (8.5-10.1); Chloride 105 mmol/L (98-107); EST Glomerular Filtration Rate 39 mL/min (>60); Est Glom Filt Rate - Afr Amer 47 mL/min (>60); Glucose 134 mg/dL (74-106); Phosphorus 3.1 mg/dL (2.5-4.9); Sodium Level 135 mmol/L (136-145)
[2023-09-04 12:07] LABS: PTHIN 85.3 pg/mL (18.4-80.1)
[2023-09-04 12:11] LABS: Vitamin D,25 Hydroxy 32.7 ng/mL
== END | disposition home or self-care (01) ==
LOC: LAB 10:34
PROVIDERS: PCP Family Medicine; Referring Provider Internal Medicine Nephrology; Visit Provider Internal Medicine Nephrology
DX: N18.32 Chronic kidney disease, stage 3b (principal)
CPT/HCPCS: 36415; 80069; 82306; 82570; 83970; 84156; 85027

== ENCOUNTER → 2024-01-21 | Outpatient (CLI) | payer MEDICARE, SELFPAY ==
[2024-01-21 15:58] LABS: Hematocrit 37.4 % (37-47); Mean Corp Hgb Conc 32.1 g/dL (32-36); Mean Corpuscular Volume 93.5 fL (81-99); Mean Platelet Vol. 11.2 fl (6.2-12.0); Platelet Count 261 K/mm3 (150-450); RBC Distribution Width CV 11.9 % (11.6-14.6); RBC Distribution Width SD 41.2 fl (35.1-43.9); White Blood Count 8.6 K/mm3 (4.4-11.0)
[2024-01-21 16:29] LABS: Albumin, Serum 3.7 g/dL (3.2-5.0); BUN 36 mg/dL (7-18); BUN/Creat Ratio 27.3 RATIO (10-20); Calcium,Total 10.4 mg/dL (8.5-10.1); Chloride 110 mmol/L (98-107); Creatinine, Serum 1.32 mg/dL (0.55-1.02); EST Glomerular Filtration Rate 41 mL/min (>60); Est Glom Filt Rate - Afr Amer 50 mL/min (>60); Glucose 121 mg/dL (74-106); Phosphorus 3.3 mg/dL (2.5-4.9); Potassium 4.4 mmol/L (3.5-5.1); Sodium Level 138 mmol/L (136-145)
[2024-01-21 16:31] LABS: Vitamin D,25 Hydroxy 37.1 ng/mL
[2024-01-21 16:36] LABS: PTHIN 63.9 pg/mL (18.4-80.1)
== END | disposition home or self-care (01) ==
PROVIDERS: PCP Family Medicine; Referring Provider Internal Medicine Nephrology; Visit Provider Internal Medicine Nephrology
DX: N18.32 Chronic kidney disease, stage 3b (principal)
CPT/HCPCS: 36415; 80069; 82306; 83970; 85027

== ENCOUNTER → 2024-01-22 | Outpatient (CLI) | payer MEDICARE, SELFPAY ==
[2024-01-22 16:14] LABS: Protein, Urine (Random) 46.6 mg/dL (<11.9); Protein:Creat Ratio 765 mg/g CRE (0-200)
== END | disposition home or self-care (01) ==
LOC: LAB 14:31
PROVIDERS: PCP Family Medicine; Referring Provider Internal Medicine Nephrology; Visit Provider Internal Medicine Nephrology
DX: N18.32 Chronic kidney disease, stage 3b (principal)
CPT/HCPCS: 82570; 84156

== ENCOUNTER → 2024-06-19 | Outpatient (CLI) | payer MEDICARE, SELFPAY ==
[2024-06-19 15:20] LABS: Absolute Lymphocyte Count 1.96 X10^3/uL (0.83-4.51); Absolute Neutrophil Count 6.3 X10^3/uL (2.0-7.7); Basophil# 0.16 X10^3/uL; Basophil% 1.7 % (0-1); Eosinophil# 0.25 X10^3/uL; Eosinophils% 2.7 % (0-5); Hemoglobin 12.8 g/dL (12.0-15.0); Lymphocyte # 1.96 X10^3/ul (0.83-4.51); Lymphocyte % 20.8 % (19-41); Mean Corp Hgb Conc 34.6 g/dL (32-36); Mean Corpuscular Hgb 31.1 pg (27.0-32.0); Mean Corpuscular Volume 89.8 fL (81-99); Mean Platelet Vol. 11.3 fl (6.2-12.0); Monocyte# 0.71 X10^3/uL; Monocyte% 7.5 % (0-10); NRBC Flagged by Analyzer 0 % (0-5); Neutrophil # 6.27 X10^3/uL (2.7-7.7); Neutrophil % 66.6 % (47-70); Platelet Count 270 K/mm3 (150-450); RBC Distribution Width SD 38.6 fl (35.1-43.9); Red Blood Count 4.12 M/mm3 (4.2-5.4); White Blood Count 9.4 K/mm3 (4.4-11.0)
[2024-06-19 16:10] LABS: ALB/GLOB Ratio 1.5 RATIO (0.9-2.4); AST(SGOT) 17 U/L (<=31); Alanine Aminotransfer ALT/SGPT 15 U/L (<=34); Albumin, Serum 4.2 g/dL (3.4-4.8); Alkaline Phosphatase 116 U/L (35-104); Anion Gap 11 (5-15); BUN 34 mg/dL (4-19); BUN/Creat Ratio 23.6 RATIO (10-20); Calcium,Total 10.4 mg/dL (7.6-11.0); Carbon Dioxide 25.4 mmol/L (21.0-32.0); Chloride 102 mmol/L (98-108); Creatinine, Serum 1.43 mg/dL (0.70-1.20); EST Glomerular Filtration Rate 38 (>60); Globulin 2.8 g/dL (2.2-4.2); Glucose 230 mg/dL (70-99); Potassium 4.9 mmol/L (3.3-5.1); Protein, Total 6.9 g/dL (5.9-8.4); Sodium Level 139 mmol/L (133-145); Total Bilirubin 0.41 mg/dL (0.00-1.30)
== END | disposition home or self-care (01) ==
LOC: LAB 14:39
PROVIDERS: PCP Family Medicine; Referring Provider Student in an Organized Health Care Education/Training Program; Visit Provider Student in an Organized Health Care Education/Training Program
DX: R10.9 Unspecified abdominal pain (principal)
CPT/HCPCS: 36415; 80053; 85025

== ENCOUNTER → 2024-07-01 | Outpatient (CLI) | payer MEDICARE, SELFPAY ==
[2024-07-03 07:07] LABS: Calprotectin, Stool 38 ug/g (0-120)
[2024-07-03 15:08] LABS: Pancreatic Elastase, Fecal 454 (>200)
== END | disposition home or self-care (01) ==
PROVIDERS: PCP Family Medicine; Referring Provider Student in an Organized Health Care Education/Training Program; Visit Provider Student in an Organized Health Care Education/Training Program
DX: R19.5 Other fecal abnormalities (principal); K58.9 Irritable bowel syndrome, unspecified
CPT/HCPCS: 82653; 83630; 83993; 87177; 87209; 87493

== ENCOUNTER → 2024-07-18 | Outpatient (CLI) | payer MEDICARE, SELFPAY ==
[2024-07-18 15:28] LABS: PTHIN 107 pg/mL (11-61); Protein, Urine (Random) 46.4 mg/dL (0.0-12.0); Protein:Creat Ratio 692 mg/g CRE (0-200)
[2024-07-18 15:45] LABS: Anion Gap 9 (5-15); BUN 34 mg/dL (4-19); BUN/Creat Ratio 23.9 RATIO (10-20); Calcium,Total 9.9 mg/dL (7.6-11.0); Carbon Dioxide 21.6 mmol/L (21.0-32.0); Chloride 102 mmol/L (98-108); Creatinine, Serum 1.44 mg/dL (0.70-1.20); EST Glomerular Filtration Rate 37 (>60); Glucose 193 mg/dL (70-99); Phosphorus 2.7 mg/dL (2.7-4.5); Potassium 5.5 mmol/L (3.3-5.1); Sodium Level 132 mmol/L (133-145); Vitamin D,25 Hydroxy 20.3 ng/mL (30-100)
== END | disposition home or self-care (01) ==
PROVIDERS: PCP Family Medicine; Referring Provider Internal Medicine Nephrology; Visit Provider Internal Medicine Nephrology
DX: N18.32 Chronic kidney disease, stage 3b (principal)
CPT/HCPCS: 36415; 80069; 82306; 82570; 83970; 84156

== ENCOUNTER → 2024-08-26 | Outpatient (CLI) | payer MEDICARE, SELFPAY ==
--- NOTE | 2024-08-26 11:19 | US_ITS ---
PROCEDURE: KIDNEY AND BLADDER 08/26/2024 REASON FOR EXAM: UTI TECHNIQUE: Ultrasound imaging of kidneys and bladder. FINDINGS: The right kidney measures 9.9 x 5 x 4.9 cm with a cortical thickness of 1.3 cm. The left kidney measures 10.6 x 4.3 x 4.8 cm with a cortical thickness of 1.6 cm. The kidneys appear within limits for echogenicity without hydronephrosis, renal stone or perinephric edema seen. Suggestion of an extrarenal pelvis noted on the right, incidental. Medial inferior left renal cyst measuring 1.4 x 1.2 x 1.2 cm. Bladder volume 215 cc. Bladder appears within limits. Wall measures 2 mm. The distal ureters are not visualized. Bilateral ureteral jets are noted during imaging. Postvoid bladder volume 22 cc. US/Kidney and Bladder IMPRESSION: Study appears within limits as above. Reading Location: [id number]
== END | disposition home or self-care (01) ==
LOC: US 11:17
PROVIDERS: PCP Family Medicine; Referring Provider Urology; Visit Provider Urology
DX: N39.0 Urinary tract infection, site not specified (principal)
CPT/HCPCS: 76770

== ENCOUNTER → 2024-12-26 | Outpatient (CLI) | payer MEDICARE, SELFPAY | END | disposition home or self-care (01) | LOC: MFPLAB 15:32 | PROVIDERS: PCP Family Medicine; Referring Provider Family Medicine; Visit Provider Family Medicine | DX: Z00.00 Encounter for general adult medical examination without abnormal findings (principal) ==

== ENCOUNTER → 2025-01-20 | Outpatient (CLI) | payer MEDICARE, SELFPAY ==
[2025-01-20 14:20] LABS: AST(SGOT) 19 U/L (<=31); Alanine Aminotransfer ALT/SGPT 12 U/L (<=34); Albumin, Serum 4.2 g/dL (3.4-4.8); Alkaline Phosphatase 120 U/L (35-104); Anion Gap 12 (5-15); BUN 33 mg/dL (4-19); BUN/Creat Ratio 26.2 RATIO (10-20); Calcium,Total 10.8 mg/dL (7.6-11.0); Carbon Dioxide 23.9 mmol/L (21.0-32.0); Chloride 100 mmol/L (98-108); Creatinine, Urine (random) 61.50 mg/dL (28.00-217.00); Globulin 2.8 g/dL (2.2-4.2); Glucose 143 mg/dL (70-99); Potassium 4.7 mmol/L (3.3-5.1); Protein, Urine (Random) 98.0 mg/dL (0.0-12.0); Protein:Creat Ratio 1593 mg/g CRE (0-200)
== END | disposition home or self-care (01) ==
LOC: LAB 11:56
PROVIDERS: PCP Family Medicine; Referring Provider Internal Medicine Nephrology; Visit Provider Internal Medicine Nephrology
DX: N18.32 Chronic kidney disease, stage 3b (principal)
CPT/HCPCS: 36415; 80053; 82043; 82570; 84156

== ENCOUNTER 2025-02-09 17:59 | Inpatient (IN) | payer MEDICARE, SELFPAY ==
[2025-02-09 18:00] VITALS: BP 182/84; PULSE 84; RESP 16; TEMP 36.8; O2SAT 98; BMI 26.0
--- NOTE | 2025-02-09 20:05 | RAD_ITS ---
PROCEDURE: RAD/HIP, UNI W/ Pelvis 2-3 Views
[2025-02-09] MEDS: fentaNYL 100 MCG/2 ML Ampul 50 MCG IV (20:12)
--- NOTE | 2025-02-09 20:30 | RAD_ITS ---
PROCEDURE: RAD/Chest PA and Lateral
[2025-02-09 20:31] VITALS: BP 188/68; PULSE 59; RESP 18; O2SAT 100
[2025-02-09 20:50] LABS: Hematocrit 36.4 % (37-47); Hemoglobin 13.0 g/dL (12.0-15.0); Immature Granulocytes Count 0.100 X10^3/uL (0.0-0.0); Mean Corp Hgb Conc 35.7 g/dL (32-36); Mean Corpuscular Volume 87.5 fL (81-99); Mean Platelet Vol. 11.6 fl (6.2-12.0); NRBC Flagged by Analyzer 0 % (0-5); Platelet Count 317 K/mm3 (150-450); RBC Distribution Width CV 12.4 % (11.6-14.6); RBC Distribution Width SD 39.8 fl (35.1-43.9); Red Blood Count 4.16 M/mm3 (4.2-5.4); White Blood Count 11.7 K/mm3 (4.4-11.0)
[2025-02-09 21:21] LABS: Anion Gap 15 (5-15); BUN 40 mg/dL (4-19); BUN/Creat Ratio 25.6 RATIO (10-20); Calcium,Total 10.6 mg/dL (7.6-11.0); Carbon Dioxide 24.2 mmol/L (21.0-32.0); Chloride 99 mmol/L (98-108); Estimated Creatinine Clearance 23.47 ml/min (50-250); Glucose 337 mg/dL (70-99); Potassium 4.7 mmol/L (3.3-5.1); Troponin T High Sensitivity 22 ng/L (<=14)
--- NOTE | 2025-02-09 21:34 | CM.ED ---
Social work Reason for referral: no PCP Referral source: case find SW entered patient's room, introducing self and role at [facility]. Patient welcomed SW visit and patient's daughter, Jordyn, was bedside. Due to patient becoming sick due to medication given, Jordyn confirmed patient's lack of PCP and accepted resources of [facility] Provider Directory and Samantha Rivera information. Jordyn denied further needs at this time. Gianna Guillen, FRONT DESK MANAGER, LEAD PROJECT ENGINEER
[2025-02-09 22:27] LABS: Troponin T High Sens 2 HR 18 ng/L (<=14)
--- NOTE | 2025-02-09 22:56 | CT_ITS ---
PROCEDURE: CT/CTA Chst, Abd, Pel W and/or WO
--- NOTE | 2025-02-09 23:50 | ED.VIS.LOWEX ---
HPI History of Present Illness Chief Complaint: Lower Extremity Injury Narrative Narrative: Patient is a 79-year-old female presenting to the emergency department for right hip and leg pain since October or November. Patient has a past medical history of hiatal hernia, diverticulosis, peripheral arterial disease, diabetes, CAD, gastroparesis, GERD, stent placed in coronary artery in 2021, COPD. Patient states that she has had sciatica in the past and this feels similar. She denies any falls or new injuries to the hip. Denies any back pain. She denies any fever or chills. Denies any saddle anesthesia, bowel or bladder incontinence or retention. Denies any weakness or numbness in her legs. Patient states that when she arrived here she developed midsternal chest pain, nausea and vomiting which she states happens when she is in a significant amount of pain. Denies the pain in her chest radiate anywhere. Denies any shortness of breath. PFSH PFS Medical History Abdominal discomfort Acute bronchitis, unspecified Hiatal hernia Diverticulosis PAD (peripheral artery disease) Heart disease Kidney disease Arthritis Presence of stent in coronary artery (~02/07/22) Old myocardial infarction Atherosclerotic heart disease of [place] coronary artery without angina pectoris NSTEMI (non-ST elevated myocardial infarction) (12/03/13) Essential hypertension Gastroparesis Syncope Diastolic dysfunction Pancreatic atrophy GERD (gastroesophageal reflux disease) Diabetes mellitus type II, uncontrolled COPD (chronic obstructive pulmonary disease) HLD (hyperlipidemia) Home Medications ?Medication ?Instructions ?Recorded ?Last Taken ?Type lisinopril 20 mg tablet 20 mg PO DAILY bp 02/10/15 07/13/22 History aspirin 81 mg tablet,delayed 81 mg PO DAILY@0800 pain 02/18/20 07/13/22 History release cholecalciferol (vitamin D3) 50 50 mcg PO DAILY vitamin 12/09/20 Unknown History mcg (2,000 unit) capsule vit 2 tab PO DAILY 06/28/22 Unknown History [id number]-[id number] 500 mg-50 mg-25 mg-40 mg tablet (Bioflex) vitamin E mixed 400 unit tablet 400 unit PO DAILY 06/28/22 Unknown History finerenone 20 mg tablet (Kerendia) 20 mg PO QDAY 09/30/24 Unknown History glipizide 5 mg tablet, extended 5 mg PO BID 09/30/24 Unknown History release 24 hr metformin 500 mg tablet,extended 500 mg PO Q3-4D 09/30/24 Unknown History release 24 hr nitroglycerin 0.4 mg sublingual 0.4 mg sublingual Q5M PRN Chest 09/30/24 Unknown Rx tablet Pain #25 tabs amoxicillin 875 mg-potassium 1 tab PO BID 7 days #14 tabs 02/10/25 Unknown Rx clavulanate 125 mg tablet metoclopramide HCl 5 mg tablet 5 mg PO Q8H PRN nausea and 02/10/25 Unknown Rx (Reglan) vomiting #14 tabs Allergy/AdvReac Type Severity Reaction Status Date / Time benzonatate (From Tessalon Allergy lip, Verified 02/09/25 17:59 Perles) tongue swelling omeprazole (From Prilosec) AdvReac Other Verified 02/09/25 17:59 omeprazole magnesium (From AdvReac Other Verified 02/09/25 17:59 Prilosec) Family History Father Myocardial infarction Sister CAD (coronary artery disease) CABG X 5 Brother CAD (coronary artery disease) Sister Sudden cardiac , Onset Age: 49 Surgical History S/P PTCA (percutaneous transluminal coronary angioplasty) Presence of coronary angioplasty implant and graft (02/07/22) History of tonsillectomy History of cataract extraction History of section History of cholecystectomy (~2013) Social History Smoking Status: Former smoker how long ago did patient quit smokin years ago alcohol intake: never substance use type: does not use caffeine: No ROS ROS ED ROS Narrative see HPI EXAM Physical Exam Narrative Exam Narrative: Vital signs: Reviewed General: Alert and oriented x 3. No acute distress HEENT: Head is normocephalic and atraumatic, sinuses nontender, pupils equal round and reactive. Nares are patent. Oropharynx and throat exams normal. Neck: Supple without lymphadenopathy nontender Cardiovascular: Regular rate and rhythm, no murmurs. No rubs or gallops. Normal S1 and S2. Radial and DP/PT pulses are 2+ and symmetric throughout. Respiratory: Clear to auscultation bilaterally. No wheezes, rales, rhonchi Abdominal: Soft and nontender. Normal bowel sounds. No guarding or rebound. Nonsurgical abdomen. No CVA tenderness to palpation. Extremities: No midline thoracic or lumbar spinal tenderness to palpation. No step-offs or deformities. No tenderness to palpation of the right hip. No tenderness. No bruising. Normal range of motion with flexion and extension at bilateral hips and knees. 5 out of 5 strength in bilateral lower extremities. Normal sensation. Skin: No rash or redness. Neurological: Cranial nerves II through XII are grossly intact. Normal strength and sensation. Normal cerebellar function The rest of the physical exam is unremarkable Const Vital Signs: 02/09/25 18:00 02/09/25 20:31 02/10/25 00:11 Temperature 98.3 F 98.3 F Temperature Source Oral Pulse Rate 84 59 L 59 L Respiratory Rate 16 18 18 Blood Pressure 182/84 H 188/68 H 188/68 H Blood Pressure Mean 116 108 108 Pulse Ox 98 100 100 Oxygen Delivery Method Room Air Room Air 02/10/25 00:58 Temperature 98.3 F Temperature Source Pulse Rate 59 L Respiratory Rate 18 Blood Pressure 188/68 H Blood Pressure Mean 108 Pulse Ox 100 Oxygen Delivery Method MDM MDM MDM Narrative Medical decision making narrative: Patient is a 79-year-old female presenting to the emergency department for initially right hip and leg pain since and chest pain, nausea and vomiting that started on arrival here. Patient was seen and examined. Vitals are stable. Patient resting bed comfortably in no acute distress. Differential includes but is not limited to: Sciatica, osteoarthritis, exam is not consistent with septic or gouty arthritis of the hip. In terms of the chest pain, ACS, pneumonia, aortic pathology. Patient states that she does develop nausea and vomiting with significant pain and states that the pain in her leg will frequently cause this however given her age and her significant comorbidities we will obtain labs and imaging to rule out ACS, aortic pathology. EKG shows normal sinus rhythm with no ischemic changes. No dysrhythmia. Patient given fentanyl for pain control and Zofran for antiemetic. CBC with nonspecific mild leukocytosis of 11.7 and normal hemoglobin. BMP with baseline kidney dysfunction slightly worse than normal. Initial troponin of 22, reflex of 18. X-ray of the hip evaluated by myself and there is no acute fracture or dislocation noted. Radiology read in agreement. Chest x-ray evaluated by myself, no pneumothorax, opacities or widened mediastinum. Radiology read in agreement. Given the patient's continued chest pain, nausea and complaints of right hip and leg pain I will obtain a CT of the chest and pelvis to rule out aortic pathology however I think this is very unlikely given her leg pain has been present for 2 months and her chest pain started when she was here. She reports that her nausea and vomiting does occur frequently given her gastroparesis and when she is in pain however need to rule out any intra-abdominal pathology including obstruction that could be causing her symptoms. CTA of the chest, abdomen, pelvis shows no aortic aneurysm or dissection. Moderate atherosclerotic disease. No acute intrathoracic abnormality. Clear lungs and pleura. Probable mild uncomplicated sigmoid diverticulitis. Small hiatal hernia. Stable small benign adrenal adenomas. Heterogeneous nodular thyroid gland; may be further assessed with ultrasound. Patient was reevaluated. No longer having vomiting. Sleeping initially on exam. Daughter is now at bedside. Will prescribe Augmentin for antibiotic coverage of her uncomplicated diverticulitis. No significant leukocytosis and no signs of complications of the diverticulitis that would require admission. Recommended NSAIDs for home for sciatica pain. Will prescribe Reglan for home for her nausea and vomiting likely secondary to her gastroparesis. On reevaluation of the patient she is now actively vomiting again and cannot tolerate p.o. Half a milligram of Ativan was attempted. Patient still having continued nausea and vomiting. At this point I have concern about discharge given concern for patient's ability to tolerate p.o., antibiotics or p.o. Reglan at home. Discussed admission with the patient. Admitted to hospitalist, Dr. Mendoza. Clinical impression Right sided sciatica Chest pain Nausea and vomiting, intractable History & Record Review Discussion w/independent historian: Patient and Family Lab Data Attestation: I reviewed the patient's lab results. Labs: Laboratory Results - last 24 hr 02/09/25 02/09/25 20:05 22:00 WBC 11.7 H RBC 4.16 L Hgb 13.0 Hct 36.4 L MCV 87.5 MCH 31.3 MCHC 35.7 RDW Std Deviation 39.8 RDW Coeff of Titus 12.4 Plt Count 317 MPV 11.6 Immature Gran % (Auto) 0.900 Neut % (Auto) 74.0 H Lymph % (Auto) 18.6 L [place] % (Auto) 4.5 Eos % (Auto) 0.9 Baso % (Auto) 1.1 H Absolute Neuts (auto) 8.6 H Absolute Lymphs (auto) 2.17 Nucleated RBC % 0 Sodium 138 Potassium 4.7 Chloride 99 Carbon Dioxide 24.2 Anion Gap 15 BUN 40 H Creatinine 1.58 H Estim Creat Clear Calc 23.47 L Est GFR (MDRD) Non-Af 33 L BUN/Creatinine Ratio 25.6 H Glucose 337 H Calcium 10.6 Troponin T High Sens 22 H Troponin T Hi Sens 2 Hr 18 H Radiography Chest X-Ray - ED: 2 View, Read by ED Physician, Normal, No Acute Disease and No Infiltrates X-Ray: Read by ED Physician, Normal and No Fracture Diagnostic Testing: Clinical Impression(s) from Imaging Studies Hip/Pelvis X-Ray 02/09/25 20:05 IMPRESSION: No acute fracture or dislocations. Mild degenerative changes of the bilateral hips No acute soft tissue abnormalities. No radiographic foreign body. Reading Location: [facility] Chest X-Ray 02/09/25 20:30 IMPRESSION: No focal consolidations. Reading Location: [facility] Chest/Abdomen/Pelvis CTA 02/09/25 22:56 IMPRESSION: 1. No aortic aneurysm or dissection. Moderate atherosclerotic disease. 2. No acute intrathoracic abnormality. Clear lungs and pleura. 3. Probable mild uncomplicated sigmoid diverticulitis. 4. Small hiatal hernia. 5. Stable small benign adrenal adenomas. 6. Heterogeneous nodular thyroid gland; may be further assessed with ultrasound. Reading Location: [facility] Discharge Plan Triage Chief Complaint: Lower Extremity Injury ED Provider: Petra Hennessy Dx/Rx/DC Orders Clinical Impression: Diverticulitis, Chest pain, Nausea & vomiting, Right sided sciatica Instructions: Diverticulitis Dc, ED Chest Pain, Uncertain Cause, ED Sciatica, ED Vomiting (Adult) Prescriptions: New amoxicillin-pot clavulanate 875-125 mg tablet 1 tab PO BID 7 Days Qty: 14 0RF metoclopramide HCl [Reglan] 5 mg tablet 5 mg PO Q8H PRN (Reason: nausea and vomiting) Qty: 14 0RF No Action cholecalciferol (vitamin D3) 50 mcg (2,000 unit) capsule 50 mcg PO DAILY Bioflex 615-37-19-40 mg tablet 2 tab PO DAILY vitamin E mixed 400 unit tablet 400 unit PO DAILY glipizide 5 mg tablet extended release 24hr 5 mg PO BID metformin 500 mg tablet extended release 24 hr 500 mg PO Q3-4D Kerendia 20 mg tablet 20 mg PO QDAY nitroglycerin 0.4 mg tablet, sublingual 0.4 mg sublingual Q5M PRN (Reason: Chest Pain) Qty: 25 6RF aspirin 81 mg tablet,delayed release (DR/EC) 81 mg PO DAILY@0800 Patient Comments: heart health lisinopril 20 MG tablet 20 mg PO DAILY Primary Care Provider: Care Physician,No Primary Referrals: Tiara Morales MD [Med Staff - Export Freight Clerk, Internal Medicine] - As soon as possible Care Physician,No Primary [Primary Care Provider, Medical] Activity Restrictions/Additional Instructions: Take the antibiotic as prescribed. Your evaluation in the Emergency Department did not reveal any acute reason for admission. However, I want to emphasize that you may be early in the course of a disease process or illness even if it is not present. For this reason you should follow-up within 24 hours for reevaluation with either your primary care physician or if necessary back here in the Emergency Department. You should return to the Emergency Department immediately if your symptoms worsen or new symptoms develop. Print Language: [place] Disposition Disposition: Home, Self Care
[2025-02-10] VITALS (13 sets, daily range): BP systolic 132–204; BP diastolic 63–83; PULSE 58–100; RESP 18–24; TEMP 36.4–37.2; O2SAT 86–100; BMI 24.5
--- NOTE | 2025-02-10 00:40 | ED.RN ---
This RN bedside to give norco. Patient was vomiting at bedside. This RN spoke with Dr. Hennessy and requested ativan after speaking to physician about how patient was not vomiting while sleeping but seemed much more erratic after being woken. This RN bedside to give ativan and explained the reasoning for giving medication. Patient's daughter stated they did not want the ativan and would not be taking it and that they would be going home. This RN explained to the patient and family member that we want the vomiting to be under control before the patient is discharged home. Family member stated that the patient received ativan before and it put her into a psychosis state. It was explained that the ativan dose the patient was ordered is a low dose of the medication and that the patient would be getting observed before we continue with discharge, but ultimately it is up to the patient if she would like it and she can refuse it if they choose so. Patient's family member stated that this hospital has poor bedside manners. This RN asked why she feels there is poor bedside manners. Family member states like just now with the ativan, we said we don't want it and now you're walking out. This RN explained again that if she doesn't want the medication, that is fine, but we can't give anything orally with the vomiting and the patient would be discharged while continuing to vomit. This nurse reeducated the family and patient again on the use of the ativan. Dr. Hennessy called bedside and explained the same information to the family and patient regarding the use of the ativan. Patient told Dr. Hennessy she should be fine going home and taking the prescribed oral medication despite dry heaving during conversation. This RN and Dr. Hennessy explained that the patient received the same medication she was prescribed and it hasn't worked so far. Patient eventually consented to receiving the ativan and observation
--- NOTE | 2025-02-10 01:10 | PCM.HP.STD ---
[facility] - General General Date of Admission: 02/10/25 Date of Service: 02/10/25 Chief Complaint: Hip pain, chest pain, intractable nausea vomiting HPI Narrative VALERIANO CROSS, is a 79 F who presents to the emergency room with chief complaint of hip pain. Patient has a significant past medical history of cyclic vomiting as well. During her visit in the emergency room she also complained of chest pain as well. In the emergency room x-ray of the hip was done and was negative and chest x-ray was negative as well. She was diagnosed with a mild case of diverticulitis based on her chest abdomen pelvis CT angiogram study and was set to be discharged home when she continued to have active nausea and vomiting despite receiving ondansetron, Reglan and Ativan. Admission was requested due to patient's intractable nausea and vomiting. Laboratory studies reveal white blood cell count 11.7, hemoglobin 13, hematocrit 36.4 platelets 317, sodium 138, potassium 4.7, chloride 99, bicarb 24.2, BUN 40, creatinine 1.58, glucose 337, troponin 22, 18. Patient is full code based on discussion with her daughter who is power of trade mark attorney. She will be admitted overnight for observation for IV fluids and continued management of her nausea and vomiting. 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 NSTEMI (non-ST elevated myocardial infarction) (12/03/13) Essential hypertension Gastroparesis Syncope Diastolic dysfunction Pancreatic atrophy GERD (gastroesophageal reflux disease) Diabetes mellitus type II, uncontrolled COPD (chronic obstructive pulmonary disease) HLD (hyperlipidemia) Home Medications ?Medication ?Instructions ?Recorded ?Last Taken ?Type lisinopril 20 mg tablet 20 mg PO DAILY bp 02/10/15 07/13/22 History aspirin 81 mg tablet,delayed 81 mg PO DAILY@0800 pain 02/18/20 07/13/22 History release cholecalciferol (vitamin D3) 50 50 mcg PO DAILY vitamin 12/09/20 Unknown History mcg (2,000 unit) capsule vit 2 tab PO DAILY 06/28/22 Unknown History O-inuvdig-[id number]-[id number] 500 mg-50 mg-25 mg-40 mg tablet (Bioflex) vitamin E mixed 400 unit tablet 400 unit PO DAILY 06/28/22 Unknown History finerenone 20 mg tablet (Kerendia) 20 mg PO QDAY 09/30/24 Unknown History glipizide 5 mg tablet, extended 5 mg PO BID 09/30/24 Unknown History release 24 hr metformin 500 mg tablet,extended 500 mg PO Q3-4D 09/30/24 Unknown History release 24 hr nitroglycerin 0.4 mg sublingual 0.4 mg sublingual Q5M PRN Chest 09/30/24 Unknown Rx tablet Pain #25 tabs amoxicillin 875 mg-potassium 1 tab PO BID 7 days #14 tabs 02/10/25 Unknown Rx clavulanate 125 mg tablet metoclopramide HCl 5 mg tablet 5 mg PO Q8H PRN nausea and 02/10/25 Unknown Rx (Reglan) vomiting #14 tabs Allergy/AdvReac Type Severity Reaction Status Date / Time benzonatate (From Tessalon Allergy lip, Verified 02/09/25 17:59 [place]harish) tongue swelling omeprazole (From Prilosec) AdvReac Other Verified 02/09/25 17:59 omeprazole magnesium (From AdvReac Other Verified 02/09/25 17:59 Prilosec) Family History Father Myocardial infarction Sister CAD (coronary artery disease) CABG X 5 Brother CAD (coronary artery disease) Sister Sudden cardiac , Onset Age: 49 Surgical History S/P PTCA (percutaneous transluminal coronary angioplasty) Presence of coronary angioplasty implant and graft (02/07/22) History of tonsillectomy History of cataract extraction History of section History of cholecystectomy (~2013) Social History Smoking Status: Former smoker how long ago did patient quit smokin years ago alcohol intake: never substance use type: does not use caffeine: No ROS Constitutional Constitutional: Denies chills or fever(s) Eyes Eyes: Denies blurry vision ENT HEENT: Denies abnormal hearing Cardiovascular Cardiovascular: Reports chest pain Respiratory/Chest Respiratory/Chest: Denies shortness of breath at rest Gastrointestinal Gastrointestinal: Reports nausea and vomiting Genitourinary Genitourinary: Denies dysuria Musculoskeletal Musculoskeletal: Denies back pain Integumentary Integumentary: Denies dry skin Neurologic Neurologic: Denies abnormal gait Psychiatric Psychiatric: Reports anxiety Vital Signs Vital Signs Vital Signs: 02/09/25 18:00 02/09/25 20:31 02/10/25 00:11 Temperature 98.3 F 98.3 F Temperature Source Oral Pulse Rate 84 59 L 59 L Respiratory Rate 16 18 18 Blood Pressure 182/84 H 188/68 H 188/68 H Blood Pressure Mean 116 108 108 Pulse Ox 98 100 100 Oxygen Delivery Method Room Air Room Air 02/10/25 00:58 Temperature 98.3 F Temperature Source Pulse Rate 59 L Respiratory Rate 18 Blood Pressure 188/68 H Blood Pressure Mean 108 Pulse Ox 100 Oxygen Delivery Method Weight Weight: 128 lb 12.8 oz Body Mass Index (BMI) 26.0 Physical Exam Const alert General Appearance: cooperative and well developed HEENT normocephalic and head/scalp atraumatic Eyes PERRL Neck no lymphadenopathy Lymph Lymphatic: no lymphadenopathy noted Resp normal respiratory effort, normal air movement and clear to auscultation bilaterally Cardio regular rate, regular rhythm, S1 normal heart sound and S2 normal heart sound GI soft to palpation and non-tender Inspection: Negative for abdominal distention Extremity normal capillary refill Skin General Skin Exam: no breakdown Neuro no focal motor deficits and no sensory deficits noted Psych cooperative and affect normal Results Lab / Micro Data 02/09/25 20:05 02/09/25 20:05 Labs: Laboratory Results - last 24 hr 02/09/25 20:05: WBC 11.7 H, RBC 4.16 L, Hgb 13.0, Hct 36.4 L, MCV 87.5, MCH 31.3, MCHC 35.7, RDW Std Deviation 39.8, RDW Coeff of Titus 12.4, Plt Count 317, MPV 11.6, Immature Gran % (Auto) 0.900, Neut % (Auto) 74.0 H, Lymph % (Auto) 18.6 L, [place] % (Auto) 4.5, Eos % (Auto) 0.9, Baso % (Auto) 1.1 H, Absolute Neuts (auto) 8.6 H, Absolute Lymphs (auto) 2.17, Nucleated RBC % 0, Sodium 138, Potassium 4.7, Chloride 99, Carbon Dioxide 24.2, Anion Gap 15, BUN 40 H, Creatinine 1.58 H, Estim Creat Clear Calc 23.47 L, Est GFR (MDRD) Non-Af 33 L, BUN/Creatinine Ratio 25.6 H, Glucose 337 H, Calcium 10.6, Troponin T High Sens 22 H 02/09/25 22:00: Troponin T Hi Sens 2 Hr 18 H Imaging Radiology Impression Hip/Pelvis X-Ray 02/09/25 20:05 IMPRESSION: No acute fracture or dislocations. Mild degenerative changes of the bilateral hips No acute soft tissue abnormalities. No radiographic foreign body. Reading Location: [facility] Chest X-Ray 02/09/25 20:30 IMPRESSION: No focal consolidations. Reading Location: [facility] Chest/Abdomen/Pelvis CTA 02/09/25 22:56 IMPRESSION: 1. No aortic aneurysm or dissection. Moderate atherosclerotic disease. 2. No acute intrathoracic abnormality. Clear lungs and pleura. 3. Probable mild uncomplicated sigmoid diverticulitis. 4. Small hiatal hernia. 5. Stable small benign adrenal adenomas. 6. Heterogeneous nodular thyroid gland; may be further assessed with ultrasound. Reading Location: [facility] Assessment & Plan Assessment/Plan (1) Nausea & vomiting: (2) Chest pain: (3) Diverticulitis: PLAN: Plan 1 intractable nausea and vomiting?admit patient to general medical floor for observation, IV normal saline at a rate of 125 cc/h, ondansetron 4 mg IV every 4 hours as needed nausea, repeat CBC CMP in a.m. 2. Diverticulitis?will give Zosyn IV while inpatient and can transition to Cipro and Flagyl as outpatient upon discharge 3. Chest pain?workup is negative for cardiac patient is no longer complaining of chest pain and will continue to observe 4. DVT prophylaxis?SCDs due to renal insufficiency 5. CODE STATUS full verified Charges/Coding Visit Charges OBSV E&M: 84385 Observ/hosp same date L2
[2025-02-10] MEDS: 0.9% Normal Saline (1000mL) 1,000 ML 125 ML IV ×3 (02:56→20:44)
[2025-02-10] MEDS: 0.9% Saline Lock 10 ML Syringe IV ×2 (02:57→23:03)
[2025-02-10 04:10] LABS: Hematocrit 35.0 % (37-47); Hemoglobin 12.1 g/dL (12.0-15.0); Immature Granulocytes Count 0.170 X10^3/uL (0.0-0.0); Mean Corp Hgb Conc 34.6 g/dL (32-36); Mean Corpuscular Volume 87.7 fL (81-99); Mean Platelet Vol. 11.7 fl (6.2-12.0); NRBC Flagged by Analyzer 0 % (0-5); Platelet Count 308 K/mm3 (150-450); RBC Distribution Width CV 12.5 % (11.6-14.6); RBC Distribution Width SD 39.9 fl (35.1-43.9); Red Blood Count 3.99 M/mm3 (4.2-5.4); White Blood Count 15.8 K/mm3 (4.4-11.0)
[2025-02-10 04:33] LABS: AST(SGOT) 14 U/L (<=31); Alanine Aminotransfer ALT/SGPT 12 U/L (<=34); Albumin, Serum 4.2 g/dL (3.4-4.8); Alkaline Phosphatase 139 U/L (35-104); Anion Gap 17 (5-15); BUN 39 mg/dL (4-19); BUN/Creat Ratio 26.7 RATIO (10-20); Calcium,Total 10.1 mg/dL (7.6-11.0); Carbon Dioxide 21.8 mmol/L (21.0-32.0); Chloride 99 mmol/L (98-108); Estimated Creatinine Clearance 24.57 ml/min (50-250); Globulin 2.8 g/dL (2.2-4.2); Glucose 557 mg/dL (70-99); Potassium 4.2 mmol/L (3.3-5.1)
[2025-02-10 05:04] LABS: Troponin T High Sens 4 HR 27 ng/L (<=14)
--- NOTE | 2025-02-10 07:21 | PN.HOSP_ITS ---
Reason for Visit
--- NOTE | 2025-02-10 07:21 | PCM.PN.HOSP ---
Reason for Visit Chief Complaint: Hip pain, chest pain, intractable nausea vomiting Subjective Subjective Patient is a 79-year-old lady who presented with right hip pain, intractable nausea vomiting imaging studies obtained demonstrated mild uncomplicated sigmoid diverticulitis. Admitted to regular nursing floor for further management Objective Data Objective Data Vital Signs: Vital Signs Temp Pulse Resp BP Pulse Ox O2 Del Method 98.4 F 100 24 H 174/79 H 99 Room Air 02/10/25 02:27 02/10/25 02:27 02/10/25 02:27 02/10/25 02:27 02/10/25 02:27 02/10/25 02:34 Oxygen Delivery Method Room Air Weight: 55.1 kg Body Mass Index (BMI) 24.5 Intake & Output: Intake and Output for Last 24 Hours 02/08/25 02/09/25 02/10/25 23:59 23:59 23:59 Intake Total 0 / 0 Balance 0 / 0 Lab / Micro Data 02/10/25 03:40 02/10/25 03:40 Labs: Laboratory Results - last 24 hr 02/09/25 20:05: WBC 11.7 H, RBC 4.16 L, Hgb 13.0, Hct 36.4 L, MCV 87.5, MCH 31.3, MCHC 35.7, RDW Std Deviation 39.8, RDW Coeff of Titus 12.4, Plt Count 317, MPV 11.6, Immature Gran % (Auto) 0.900, Neut % (Auto) 74.0 H, Lymph % (Auto) 18.6 L, [place] % (Auto) 4.5, Eos % (Auto) 0.9, Baso % (Auto) 1.1 H, Absolute Neuts (auto) 8.6 H, Absolute Lymphs (auto) 2.17, Nucleated RBC % 0, Sodium 138, Potassium 4.7, Chloride 99, Carbon Dioxide 24.2, Anion Gap 15, BUN 40 H, Creatinine 1.58 H, Estim Creat Clear Calc 23.47 L, Est GFR (MDRD) Non-Af 33 L, BUN/Creatinine Ratio 25.6 H, Glucose 337 H, Calcium 10.6, Troponin T High Sens 22 H 02/09/25 22:00: Troponin T Hi Sens 2 Hr 18 H 02/10/25 03:40: WBC 15.8 H, RBC 3.99 L, Hgb 12.1, Hct 35.0 L, MCV 87.7, MCH 30.3, MCHC 34.6, RDW Std Deviation 39.9, RDW Coeff of Titus 12.5, Plt Count 308, MPV 11.7, Immature Gran % (Auto) 1.100 H, Neut % (Auto) 92.4 H, Lymph % (Auto) 4.0 L, [place] % (Auto) 1.7, Eos % (Auto) 0.0, Baso % (Auto) 0.8, Absolute Neuts (auto) 14.6 H, Absolute Lymphs (auto) 0.64 L, Nucleated RBC % 0, Sodium 138, Potassium 4.2, Chloride 99, Carbon Dioxide 21.8, Anion Gap 17 H, BUN 39 H, Creatinine 1.47 H, Estim Creat Clear Calc 24.57 L, Est GFR (MDRD) Non-Af 36 L, BUN/Creatinine Ratio 26.7 H, Glucose 557 H*, Calcium 10.1, Total Bilirubin 0.40, AST 14, ALT 12, Alkaline Phosphatase 139 H, Troponin T Hi Sens 4Hr 27 H, Total Protein 7.1, Albumin 4.2, Globulin 2.8, Albumin/Globulin Ratio 1.5 02/10/25 05:12: POC Glucose 498 H* Radiography Diagnostic Testing: Radiology Impression Hip/Pelvis X-Ray 02/09/25 20:05 IMPRESSION: No acute fracture or dislocations. Mild degenerative changes of the bilateral hips No acute soft tissue abnormalities. No radiographic foreign body. Reading Location: [facility] Chest X-Ray 02/09/25 20:30 IMPRESSION: No focal consolidations. Reading Location: [facility] Chest/Abdomen/Pelvis CTA 02/09/25 22:56 IMPRESSION: 1. No aortic aneurysm or dissection. Moderate atherosclerotic disease. 2. No acute intrathoracic abnormality. Clear lungs and pleura. 3. Probable mild uncomplicated sigmoid diverticulitis. 4. Small hiatal hernia. 5. Stable small benign adrenal adenomas. 6. Heterogeneous nodular thyroid gland; may be further assessed with ultrasound. Reading Location: [facility] Physical Exam Narrative GENERAL: cooperative HEENT: Atraumatic; normocephalic EYES; Anicteric, Normal Conjunctiva NECK; supple, normal thyroid, RESPIRATORY: Diminished to auscultation CARDIOVASCULAR: Regular S1 S2, GI: soft, normoactive bowel sounds, left lower quadrant abdominal pain : No Renal angle tenderness; EXTREMITIES: No edema, no clubbing, MUSCULOSKELETAL: no muscle wasting NEURO: Awake; no lateralizing signs. SKIN: No Rash PSYCH; Flat affect Assessment & Plan Assessment/Plan (1) Nausea & vomiting: (2) Chest pain: (3) Diverticulitis: PLAN: Plan Patient is a 79-year-old lady who presented with intractable nausea vomiting imaging studies obtained demonstrated mild uncomplicated sigmoid diverticulitis. Admitted to regular nursing floor for further management 1. Sigmoid diverticulitis ? Admitted to regular nursing floor. Started on Zosyn in addition to symptom management 2. Right hip pain ? Secondary to osteoarthritis Imaging studies demonstrated degenerative changes involving both hips 3. Diabetes mellitus type 2 uncontrolled with hyperglycemia ? Patient is on glipizide held on admission started on long-acting insulin in addition to Accu-Cheks AC and at bedtime with sliding scale coverage 4. Essential hypertension ? Patient blood pressure controlled optima is on lisinopril did continue added Lopressor 25 mg twice daily 5. Coronary artery disease ? With previous CLEMENT to mid LAD and proximal RCA lesion and PCI to left circumflex. Patient has apparently been off her medications for a month. Was educated on the need to be compliant 6. Dyslipidemia ? Patient is supposed to be on statin apparently came off for almost a month ordered lipid panel 7. GERD ? PPI as 8. Chronic kidney disease stage IIIa ? Kidney function at base 8. DVT prophylaxis ? Subcu enoxaparin Time spent in the patient's overall evaluation,decision-making process, review of diagnostic data, adjustment of management, discussion with other providers, nursing nursing and ancillary staff involved in patient's care documentation, 45Minutes Charges/Coding Multi Select Codes Visit Charges Visit Charges: 51609 PROLNG IP/OBS E/M EA 15 MIN (Prolonged time spent 45 minutes-[id number], [id number], [id number])
[2025-02-10] MEDS: Cholecalciferol (VIT D3) 25 MCG TABLET (1,000 UNITS) 50 MCG PO (08:33)
[2025-02-10] MEDS: Aspirin E.C. 81 MG Tablet PO (08:33)
[2025-02-10] MEDS: Piperacil/Tazobactam 3.375 GM in 0.9% Normal Saline (50mL MB+) 50 ML IV ×3 (08:37→23:02)
[2025-02-10 09:34] LABS: Cholesterol 204 mg/dL (<=200); Low Density Lipoprotein Calc. 131 mg/dL; Triglycerides 112 mg/dL; Very Low Density Lipoprotein 22 mg/dL (5-40); cholesterol:hdl ratio screen 3.86
[2025-02-10] MEDS: CLARIFY ORDER NOTE (10:08)
[2025-02-10] MEDS: Insulin Glargine-YFGN 100 UNIT/ML Pen 15 UNIT SC ×2 (11:03→22:58)
--- NOTE | 2025-02-10 14:18 | CHAPLAIN ---
Type of Pastoral Visit _x__ Initial Visit ___ Follow-up Visit ___ On-call Visit ___ General Patient Visit ___ Spiritual Assessment ___ Family Conference ___ Bereavement ___ Rapid Response ___ Code Blue ___ Other (describe below) Pastoral Care Referral From _x__ Patient ___ Family _x__ Nurse ___ Physician ___ Lead Network Architect ___ Chef Instructor ___ Other (describe below) Sacrament/Intervention ___ Active listening ___ Anointing ___ Uatsdin ___ Bereavement ___ Communion ___ Mey exploration ___ ___ Life review _x__ Prayer ___ Reconciliation ___ Sacrament of Sick _x__ Supportive presence ___ Wedding ___ Other (describe below) Pastoral Comments patient had specifically requested a spiritual care visit; this music instructor found patient wrapped in blankets in bed with eyes closed; pt did awaken easily to her name; pt gives a moan and says that she is not feeling well but asks to receive a prayer for her healing and help; comforting words given and a prayer; pt would like to rest more at this time; offer to return another time as patient desires
--- NOTE | 2025-02-10 16:21 | CASEMGMT ---
GOLDSMITH Attempted to review GOLDSMITH with pt but she was receiving nursing care. Will attempt again in the morning. Iman Casanova DC Planning Asst.
[2025-02-11] VITALS (9 sets, daily range): BP systolic 125–207; BP diastolic 54–96; PULSE 64–86; RESP 16–22; TEMP 36.5–37.1; O2SAT 92–97
[2025-02-11] MEDS: 0.9% Normal Saline (1000mL) 1,000 ML 125 ML IV ×3 (04:24→22:20)
[2025-02-11] MEDS: Piperacil/Tazobactam 3.375 GM in 0.9% Normal Saline (50mL MB+) 50 ML IV ×3 (05:21→21:35)
[2025-02-11 06:55] LABS: Hematocrit 34.2 % (37-47); Hemoglobin 11.5 g/dL (12.0-15.0); Immature Granulocytes Count 0.150 X10^3/uL (0.0-0.0); Mean Corp Hgb Conc 33.6 g/dL (32-36); Mean Corpuscular Volume 90.7 fL (81-99); Mean Platelet Vol. 11.2 fl (6.2-12.0); NRBC Flagged by Analyzer 0 % (0-5); Platelet Count 272 K/mm3 (150-450); RBC Distribution Width CV 12.9 % (11.6-14.6); RBC Distribution Width SD 42.4 fl (35.1-43.9); Red Blood Count 3.77 M/mm3 (4.2-5.4); White Blood Count 21.8 K/mm3 (4.4-11.0)
--- NOTE | 2025-02-11 07:24 | PN.HOSP_ITS ---
Reason for Visit
--- NOTE | 2025-02-11 07:24 | PCM.PN.HOSP ---
Reason for Visit Chief Complaint: Hip pain, chest pain, intractable nausea vomiting Subjective Subjective Patient seen complains of persistent abdominal pain and is having bouts of emesis this a.m. WBC count is also trending up. Will continue with current antibiotic therapy with Zosyn for acute diverticulitis Objective Data Objective Data Vital Signs: Vital Signs Temp Pulse Resp BP Pulse Ox O2 Del Method O2 Flow Rate 97.7 F L 67 22 H 175/69 H 97 Nasal Cannula 2 02/11/25 03:19 02/11/25 03:19 02/11/25 03:19 02/11/25 03:19 02/11/25 03:19 02/11/25 03:28 02/11/25 03:28 Oxygen Flow Rate (L/min) 2 Oxygen Delivery Method Nasal Cannula Weight: 55.1 kg Body Mass Index (BMI) 24.5 Intake & Output: Intake and Output for Last 24 Hours 02/09/25 02/10/25 02/11/25 23:59 23:59 23:59 Intake Total 3100 / 3200 1108.33 / 1108.33 Balance 3100 / 3200 1108.33 / 1108.33 Lab / Micro Data 02/11/25 06:45 02/11/25 06:45 Labs: Laboratory Results - last 24 hr 02/10/25 03:40: Hemoglobin A1c 9.3 H, Triglycerides 112, Cholesterol 204 H, LDL Cholesterol, Calc 131, VLDL Cholesterol 22, HDL Cholesterol 53, Cholesterol/HDL Ratio 3.86 02/10/25 10:47: POC Glucose 400 H 02/10/25 16:10: POC Glucose 232 H 02/10/25 22:56: POC Glucose 131 H 02/11/25 06:39: POC Glucose 84 02/11/25 06:45: WBC 21.8 H, RBC 3.77 L, Hgb 11.5 L, Hct 34.2 L, MCV 90.7, MCH 30.5, MCHC 33.6, RDW Std Deviation 42.4, RDW Coeff of Titus 12.9, Plt Count 272, MPV 11.2, Immature Gran % (Auto) 0.700, Neut % (Auto) 86.3 H, Lymph % (Auto) 6.8 L, [place] % (Auto) 5.7, Eos % (Auto) 0.1, Baso % (Auto) 0.4, Absolute Neuts (auto) 18.8 H, Absolute Lymphs (auto) 1.48, Nucleated RBC % 0 Physical Exam Narrative GENERAL: Patient appears ill looking HEENT: Atraumatic; normocephalic EYES; Anicteric, Normal Conjunctiva NECK; supple, normal thyroid, RESPIRATORY: Diminished to auscultation CARDIOVASCULAR: Regular S1 S2, GI: soft, normoactive bowel sounds, left lower quadrant abdominal pain : No Renal angle tenderness; EXTREMITIES: No edema, no clubbing, MUSCULOSKELETAL: no muscle wasting NEURO: Awake; no lateralizing signs. SKIN: No Rash PSYCH; Flat affect Assessment & Plan Assessment/Plan (1) Nausea & vomiting: (2) Chest pain: (3) Diverticulitis: PLAN: Plan Patient is a 79-year-old lady who presented with intractable nausea vomiting imaging studies obtained demonstrated mild uncomplicated sigmoid diverticulitis. Admitted to regular nursing floor for further management 1. Sigmoid diverticulitis ? Admitted to regular nursing floor. Started on Zosyn in addition to symptom management ? 02/11/2025; patient still remains symptomatic with pain nausea and vomiting as well as elevated WBC count. Will continue current treatment with Zosyn repeat CBC with differential in a.m. 2. Right hip pain ? Secondary to osteoarthritis Imaging studies demonstrated degenerative changes involving both hips 3. Diabetes mellitus type 2 uncontrolled with hyperglycemia ? Patient is on glipizide held on admission started on long-acting insulin in addition to Accu-Cheks AC and at bedtime with sliding scale coverage 4. Essential hypertension ? Patient blood pressure controlled optima is on lisinopril did continue added Lopressor 25 mg twice daily 5. Coronary artery disease ? With previous CLEMENT to mid LAD and proximal RCA lesion and PCI to left circumflex. Patient has apparently been off her medications for a month. Was educated on the need to be compliant 6. Dyslipidemia ? Patient is supposed to be on statin apparently came off for almost a month ordered lipid panel 7. GERD ? PPI as 8. Chronic kidney disease stage IIIa ? Kidney function at base 9. Anemia ? Secondary to chronic disorder monitoring H&H and transfuse if patient becomes symptomatic or hemoglobin falls below 7 10. DVT prophylaxis ? Subcu enoxaparin Time spent in the patient's overall evaluation,decision-making process, review of diagnostic data, adjustment of management, discussion with other providers, nursing nursing and ancillary staff involved in patient's care documentation, 35 Minutes Charges/Coding Visit Charges Inpatient E&M: 45046 Subs Hosp L2
[2025-02-11 07:30] LABS: Magnesium 2.1 mg/dL (1.5-2.2)
[2025-02-11 07:34] LABS: Anion Gap 10 (5-15); BUN 34 mg/dL (4-19); BUN/Creat Ratio 22.1 RATIO (10-20); Calcium,Total 9.1 mg/dL (7.6-11.0); Carbon Dioxide 23.0 mmol/L (21.0-32.0); Chloride 108 mmol/L (98-108); Estimated Creatinine Clearance 23.30 ml/min (50-250); Glucose 89 mg/dL (70-99); Potassium 3.6 mmol/L (3.3-5.1)
[2025-02-11] MEDS: Aspirin E.C. 81 MG Tablet PO (08:39)
[2025-02-11] MEDS: FINERENONE 20 MG TABLET PO (08:40)
[2025-02-11] MEDS: Cholecalciferol (VIT D3) 25 MCG TABLET (1,000 UNITS) 50 MCG PO (08:40)
[2025-02-11] MEDS: 0.9% Saline Lock 10 ML Syringe IV ×2 (08:47→16:42)
--- NOTE | 2025-02-11 13:08 | CASEMGMT ---
ROBIN DEJESUS Assessment Face to Face with patient for initial transition planning/care coordination assessment. ROBIN DEJESUS introduced self and role at [facility], pt voices understanding. Pt is A&Ox4 and is resting comfortably in bed and is calm. Care providers, pharmacy, and demographics verified. Admitting dx: N/V PCP: No PCP. ED SW has provided resources Specialists: Martin ([employer] Representative Annamarie), Kika ([employer] Representative Will) Preferred Pharmacy: [facility]. Per the nursing handoff, the pt has not been taking her home meds. This RN OLEG inquired about this with the pt who states that she has not been having any issues taking her medications. Insurance: [employer] [facility] Prescription Benefit: Yes LNOK: Neville () Jordyn (Daughter) Living Arrangements: Pt lives with her in a single story home with a basement with one step to enter ADLs/IADLs: Pt states that she is indep and that she has to help her at home. Pt states that her daughter is able to provide support as well Transportation: Self, daughter DME: Pt states that she has 3 BGM with sufficient supplies. Shower chair. Grab bars. x3 FWW. Rollator. Pt is currently requiring additional oxygen and may qualify for home oxygen use. A verbal list of local in-network DME companies were provided to the pt at this time. Pt prefers [facility] HHC/ SNF: Reports hx at [facility]. Denies HH Pt?s goal: Home Plan: Home, follow for O2 needs. PT has cleared the pt. Pt states that she feels safe going home with her once medically ready. Pt denies the need for any additional therapy or resources including HH or OP Tx. Pt denies further questions or concerns at this time. Report given to MS3 ROBIN DEJESUS. Aide Doyle RN, CM
[2025-02-11] MEDS: Insulin Glargine-YFGN 100 UNIT/ML Pen 15 UNIT SC (21:41)
[2025-02-12 03:38] VITALS: BP 134/62; PULSE 64; RESP 16; TEMP 36.3; O2SAT 99
[2025-02-12] MEDS: Piperacil/Tazobactam 3.375 GM in 0.9% Normal Saline (50mL MB+) 50 ML IV (05:28)
[2025-02-12] MEDS: 0.9% Normal Saline (1000mL) 1,000 ML 125 ML IV (06:40)
[2025-02-12 07:13] LABS: Hematocrit 30.4 % (37-47); Hemoglobin 10.1 g/dL (12.0-15.0); Immature Granulocytes Count 0.130 X10^3/uL (0.0-0.0); Mean Corp Hgb Conc 33.2 g/dL (32-36); Mean Corpuscular Volume 91.8 fL (81-99); Mean Platelet Vol. 11.0 fl (6.2-12.0); NRBC Flagged by Analyzer 0 % (0-5); Platelet Count 227 K/mm3 (150-450); RBC Distribution Width CV 12.9 % (11.6-14.6); RBC Distribution Width SD 42.9 fl (35.1-43.9); Red Blood Count 3.31 M/mm3 (4.2-5.4); White Blood Count 13.7 K/mm3 (4.4-11.0)
--- NOTE | 2025-02-12 07:26 | PN.HOSP_ITS ---
Reason for Visit
--- NOTE | 2025-02-12 07:26 | PCM.PN.HOSP ---
Reason for Visit Chief Complaint: Hip pain, chest pain, intractable nausea vomiting Subjective Subjective Patient patient seen pain control improved. Plan is for patient to be assessed for possible discharge Objective Data Objective Data Vital Signs: Vital Signs Temp Pulse Resp BP Pulse Ox O2 Del Method O2 Flow Rate 97.4 F L 64 16 134/62 H 99 Room Air 2 02/12/25 03:38 02/12/25 03:38 02/12/25 03:38 02/12/25 03:38 02/12/25 03:38 02/12/25 03:38 02/12/25 01:39 Oxygen Flow Rate (L/min) 2 Oxygen Delivery Method Room Air Weight: 55.1 kg Body Mass Index (BMI) 24.5 Intake & Output: Intake and Output for Last 24 Hours 02/10/25 02/11/25 02/12/25 23:59 23:59 23:59 Intake Total 3100 / 3200 4206.25 / 4206.25 1050 / 1050 Balance 3100 / 3200 4206.25 / 4206.25 1050 / 1050 Lab / Micro Data 02/12/25 07:02 02/12/25 07:02 Labs: Laboratory Results - last 24 hr 02/11/25 06:45: Sodium 140, Potassium 3.6, Chloride 108, Carbon Dioxide 23.0, Anion Gap 10, BUN 34 H, Creatinine 1.55 H, Estim Creat Clear Calc 23.30 L, Est GFR (MDRD) Non-Af 34 L, BUN/Creatinine Ratio 22.1 H, Glucose 89, Calcium 9.1, Phosphorus 2.8, Magnesium 2.1 02/11/25 10:48: POC Glucose 99 02/11/25 16:09: POC Glucose 95 02/11/25 21:40: POC Glucose 83 02/12/25 07:02: WBC 13.7 H, RBC 3.31 L, Hgb 10.1 L, Hct 30.4 L, MCV 91.8, MCH 30.5, MCHC 33.2, RDW Std Deviation 42.9, RDW Coeff of Titus 12.9, Plt Count 227, MPV 11.0, Immature Gran % (Auto) 0.900, Neut % (Auto) 80.3 H, Lymph % (Auto) 7.7 L, [place] % (Auto) 10.3 H, Eos % (Auto) 0.3, Baso % (Auto) 0.5, Absolute Neuts (auto) 11.0 H, Absolute Lymphs (auto) 1.06, Nucleated RBC % 0 Physical Exam Narrative GENERAL: Patient appears ill looking HEENT: Atraumatic; normocephalic EYES; Anicteric, Normal Conjunctiva NECK; supple, normal thyroid, RESPIRATORY: Diminished to auscultation CARDIOVASCULAR: Regular S1 S2, GI: soft, normoactive bowel sounds, : No Renal angle tenderness; EXTREMITIES: No edema, no clubbing, MUSCULOSKELETAL: no muscle wasting NEURO: Awake; no lateralizing signs. SKIN: No Rash PSYCH; Flat affect Assessment & Plan Assessment/Plan (1) Nausea & vomiting: (2) Chest pain: (3) Diverticulitis: PLAN: Plan Patient is a 79-year-old lady who presented with intractable nausea vomiting imaging studies obtained demonstrated mild uncomplicated sigmoid diverticulitis. Admitted to regular nursing floor for further management 1. Sigmoid diverticulitis ? Admitted to regular nursing floor. Started on Zosyn in addition to symptom management ? 02/11/2025; patient still remains symptomatic with pain nausea and vomiting as well as elevated WBC count. Will continue current treatment with Zosyn repeat CBC with differential in a.m. ? 02/12/2025; patient BC count trend plan for patient to be assessed for possible discharge 2. Right hip pain ? Secondary to osteoarthritis Imaging studies demonstrated degenerative changes involving both hips 3. Diabetes mellitus type 2 uncontrolled with hyperglycemia ? Patient is on glipizide held on admission started on long-acting insulin in addition to Accu-Cheks AC and at bedtime with sliding scale coverage 4. Essential hypertension ? Patient blood pressure controlled optima is on lisinopril did continue added Lopressor 25 mg twice daily 5. Coronary artery disease ? With previous CLEMENT to mid LAD and proximal RCA lesion and PCI to left circumflex. Patient has apparently been off her medications for a month. Was educated on the need to be compliant 6. Dyslipidemia ? Patient is supposed to be on statin apparently came off for almost a month ordered lipid panel 7. GERD ? PPI as 8. Chronic kidney disease stage IIIa ? Kidney function at base 9. Anemia ? Secondary to chronic disorder monitoring H&H and transfuse if patient becomes symptomatic or hemoglobin falls below 7 10. DVT prophylaxis ? Subcu enoxaparin Time spent in the patient's overall evaluation,decision-making process, review of diagnostic data, adjustment of management, discussion with other providers, nursing nursing and ancillary staff involved in patient's care documentation, 35 Minutes Charges/Coding Visit Charges Inpatient E&M: 53170 Subs Hosp L2
[2025-02-12 07:39] LABS: Anion Gap 8 (5-15); BUN 30 mg/dL (4-19); BUN/Creat Ratio 20.2 RATIO (10-20); Calcium,Total 8.2 mg/dL (7.6-11.0); Carbon Dioxide 20.9 mmol/L (21.0-32.0); Chloride 108 mmol/L (98-108); Estimated Creatinine Clearance 24.74 ml/min (50-250); Glucose 68 mg/dL (70-99); Potassium 3.3 mmol/L (3.3-5.1)
--- NOTE | 2025-02-12 08:09 | NURSING ---
pt a&ox3. no distress noted. RA. pt verbalized does use 2L PRN at HS. ls dim bases. abd soft. states pain 3/10 rlq/hip. states was able to have BM overnight. +flatus. denies NV at present denies need for pain intervention at present. pt up to bathroom SBA walker. gait steady- back to bed. call light within reach. 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
[2025-02-12 09:04] VITALS: BP 128/70; PULSE 60; RESP 17; TEMP 36.6; O2SAT 98
--- NOTE | 2025-02-12 09:07 | PCM.DC.SUM ---
Providers Date of Admission: 02/10/25 Date of Discharge: 02/12/25 Primary Care Physician: No Primary Care Phys Reason For Visit: INTRACTABLE NAUSEA/VOMITING Diagnosis Discharge Diagnosis (1) Nausea & vomiting: Status: Acute Code(s): R11.2 - Nausea with vomiting, unspecified (2) Chest pain: Status: Acute Code(s): R07.9 - Chest pain, unspecified (3) Diverticulitis: Status: Acute Code(s): K57.92 - Diverticulitis of intestine, part unspecified, without perforation or abscess without bleeding Plan Patient is a 79-year-old lady who presented with intractable nausea vomiting imaging studies obtained demonstrated mild uncomplicated sigmoid diverticulitis. Admitted to regular nursing floor for further management 1. Sigmoid diverticulitis ? Admitted to regular nursing floor. Started on Zosyn in addition to symptom management ? 02/11/2025; patient still remains symptomatic with pain nausea and vomiting as well as elevated WBC count. Will continue current treatment with Zosyn repeat CBC with differential in a.m. ? 02/12/2025; patient BC count trend plan for patient to be assessed for possible discharge 2. Right hip pain ? Secondary to osteoarthritis Imaging studies demonstrated degenerative changes involving both hips 3. Diabetes mellitus type 2 uncontrolled with hyperglycemia ? Patient is on glipizide held on admission started on long-acting insulin in addition to Accu-Cheks AC and at bedtime with sliding scale coverage 4. Essential hypertension ? Patient blood pressure controlled optima is on lisinopril did continue added Lopressor 25 mg twice daily 5. Coronary artery disease ? With previous CLEMENT to mid LAD and proximal RCA lesion and PCI to left circumflex. Patient has apparently been off her medications for a month. Was educated on the need to be compliant 6. Dyslipidemia ? Patient is supposed to be on statin apparently came off for almost a month ordered lipid panel 7. GERD ? PPI as 8. Chronic kidney disease stage IIIa ? Kidney function at base 9. Anemia ? Secondary to chronic disorder monitoring H&H and transfuse if patient becomes symptomatic or hemoglobin falls below 7 10. DVT prophylaxis ? Subcu enoxaparin Time spent in the patient's overall evaluation,decision-making process, review of diagnostic data, adjustment of management, discussion with other providers, nursing nursing and ancillary staff involved in patient's care documentation, 35 Minutes Medications at Discharge Home Medications aspirin 81 mg tablet,delayed release 81 mg PO DAILY@0800 pain 02/18/20 cholecalciferol (vitamin D3) 50 mcg (2,000 unit) capsule 50 mcg PO DAILY vitamin 12/09/20 vit [id number] 500 mg-50 mg-25 mg-40 mg tablet (Bioflex) 2 tab PO DAILY 06/28/22 vitamin E mixed 400 unit tablet 400 unit PO DAILY 06/28/22 finerenone 20 mg tablet (Kerendia) 20 mg PO QDAY 09/30/24 glipizide 5 mg tablet, extended release 24 hr 5 mg PO BID 09/30/24 nitroglycerin 0.4 mg sublingual tablet 0.4 mg sublingual Q5M PRN Chest Pain #25 tabs 09/30/24 amoxicillin 875 mg-potassium clavulanate 125 mg tablet 1 tab PO BID 7 days #14 tabs 02/10/25 metoclopramide HCl 5 mg tablet (Reglan) 5 mg PO Q8H PRN nausea and vomiting #14 tabs 02/10/25 Physical Exam Narrative GENERAL: Patient appears ill looking HEENT: Atraumatic; normocephalic EYES; Anicteric, Normal Conjunctiva NECK; supple, normal thyroid, RESPIRATORY: Diminished to auscultation CARDIOVASCULAR: Regular S1 S2, GI: soft, normoactive bowel sounds, : No Renal angle tenderness; EXTREMITIES: No edema, no clubbing, MUSCULOSKELETAL: no muscle wasting NEURO: Awake; no lateralizing signs. SKIN: No Rash PSYCH; Flat affect Weight / BMI Weight Weight: 55.1 kg Body Mass Index (BMI) 24.5 ABG / Lab / Microbiology Data 02/12/25 07:02 02/12/25 07:02 Laboratory: Laboratory Results - last 24 hr 02/11/25 10:48: POC Glucose 99 02/11/25 16:09: POC Glucose 95 02/11/25 21:40: POC Glucose 83 02/12/25 07:02: WBC 13.7 H, RBC 3.31 L, Hgb 10.1 L, Hct 30.4 L, MCV 91.8, MCH 30.5, MCHC 33.2, RDW Std Deviation 42.9, RDW Coeff of Titus 12.9, Plt Count 227, MPV 11.0, Immature Gran % (Auto) 0.900, Neut % (Auto) 80.3 H, Lymph % (Auto) 7.7 L, [place] % (Auto) 10.3 H, Eos % (Auto) 0.3, Baso % (Auto) 0.5, Absolute Neuts (auto) 11.0 H, Absolute Lymphs (auto) 1.06, Nucleated RBC % 0, Sodium 137, Potassium 3.3, Chloride 108, Carbon Dioxide 20.9 L, Anion Gap 8, BUN 30 H, Creatinine 1.46 H, Estim Creat Clear Calc 24.74 L, Est GFR (MDRD) Non-Af 37 L, BUN/Creatinine Ratio 20.2 H, Glucose 68 L, Calcium 8.2 02/12/25 07:41: POC Glucose 60 L 02/12/25 07:59: POC Glucose 64 L 02/12/25 08:47: POC Glucose 115 H D/C Instructions DC O2, CPAP, BIPAP Needs Home O2 Discharge instructions: No Meaningful Use Info Meaningful Use Meaningful Use Diagnoses (Choose all that apply): None applicable Discharge Plan Admission Admit Date/Time: 02/10/25 16:47 Attending Provider: Alex Adhikari Primary Care Provider: Care Physician,No Primary Consulting Providers: Rai Mendoza Instructions Patient Instructions: Diverticulitis Dc, ED Chest Pain, Uncertain Cause, ED Sciatica, ED Vomiting (Adult) Additional Instructions / Restrictions: Take the antibiotic as prescribed. Your evaluation in the Emergency Department did not reveal any acute reason for admission. However, I want to emphasize that you may be early in the course of a disease process or illness even if it is not present. For this reason you should follow-up within 24 hours for reevaluation with either your primary care physician or if necessary back here in the Emergency Department. You should return to the Emergency Department immediately if your symptoms worsen or new symptoms develop. Discharge Orders/Prescriptions Prescriptions: New amoxicillin-pot clavulanate 875-125 mg tablet 1 tab PO BID 7 Days Qty: 14 0RF metoclopramide HCl [Reglan] 5 mg tablet 5 mg PO Q8H PRN (Reason: nausea and vomiting) Qty: 14 0RF Continued cholecalciferol (vitamin D3) 50 mcg (2,000 unit) capsule 50 mcg PO DAILY Bioflex 356-54-43-40 mg tablet 2 tab PO DAILY vitamin E mixed 400 unit tablet 400 unit PO DAILY glipizide 5 mg tablet extended release 24hr 5 mg PO BID Kerendia 20 mg tablet 20 mg PO QDAY nitroglycerin 0.4 mg tablet, sublingual 0.4 mg sublingual Q5M PRN (Reason: Chest Pain) Qty: 25 6RF aspirin 81 mg tablet,delayed release (DR/EC) 81 mg PO DAILY@0800 Patient Comments: heart health Referrals / Follow Up: Tiara Morales MD [Med Staff - Nursery Attendant, Internal Medicine] - In 1 Week Care Physician,No Primary [Primary Care Provider, Medical] Disposition Disposition (needs filled in before D/C Order can be placed): Home, Self Care Charges/Coding Visit Charges Inpatient E&M: 29448 Disch Hosp >30min
[2025-02-12 09:08] VITALS: BP 110/60; PULSE 66; RESP 16; TEMP 36.8; O2SAT 94
[2025-02-12 10:02] VITALS: BP 128/70; PULSE 60
[2025-02-12] MEDS: Cholecalciferol (VIT D3) 25 MCG TABLET (1,000 UNITS) 50 MCG PO (10:02)
[2025-02-12] MEDS: FINERENONE 20 MG TABLET PO (10:03)
[2025-02-12] MEDS: Aspirin E.C. 81 MG Tablet PO (10:03)
--- NOTE | 2025-02-12 11:25 | PHA.DC_ITS ---
Pharmacy DC Med Reconciliation
--- NOTE | 2025-02-12 11:25 | PHA.DC.MR.R ---
Pharmacy [place] Med Reconciliation Pharmacy Service has performed discharge medication reconciliation for this patient. The patient's discharge medication list was reviewed for discrepancies and discrepancies were resolved. Medications at Discharge Home Medications aspirin 81 mg tablet,delayed release 81 mg PO DAILY@0800 pain 02/18/20 cholecalciferol (vitamin D3) 50 mcg (2,000 unit) capsule 50 mcg PO DAILY vitamin 12/09/20 vit A-[id number]-[id number]-[id number] 500 mg-50 mg-25 mg-40 mg tablet (Bioflex) 2 tab PO DAILY 06/28/22 vitamin E mixed 400 unit tablet 400 unit PO DAILY 06/28/22 finerenone 20 mg tablet (Kerendia) 20 mg PO QDAY 09/30/24 glipizide 5 mg tablet, extended release 24 hr 5 mg PO BID 09/30/24 nitroglycerin 0.4 mg sublingual tablet 0.4 mg sublingual Q5M PRN Chest Pain #25 tabs 09/30/24 amoxicillin 875 mg-potassium clavulanate 125 mg tablet 1 tab PO BID 7 days #14 tabs 02/10/25 metoclopramide HCl 5 mg tablet (Reglan) 5 mg PO Q8H PRN nausea and vomiting #14 tabs 02/10/25
== END 2025-02-12 09:08 | disposition home or self-care (01) | DRG 392 ==
LOC: ED 02-10 00:55 → MS3 02-10 01:35
PROVIDERS: Admitting Provider Family Medicine; Emergency Provider Student in an Organized Health Care Education/Training Program; Visit Provider Internal Medicine
DX: K57.32 Diverticulitis of large intestine without perforation or abscess without bleeding (principal); D63.8 Anemia in other chronic diseases classified elsewhere; E11.43 Type 2 diabetes mellitus with diabetic autonomic (poly)neuropathy; J44.9 Chronic obstructive pulmonary disease, unspecified; N18.31 Chronic kidney disease, stage 3a; I12.9 Hypertensive chronic kidney disease with stage 1 through stage 4 chronic kidney disease, or unspecified chronic kidney disease; E78.5 Hyperlipidemia, unspecified; M16.0 Bilateral primary osteoarthritis of hip; K21.9 Gastro-esophageal reflux disease without esophagitis; I25.10 Atherosclerotic heart disease of native coronary artery without angina pectoris; I25.2 Old myocardial infarction; E11.65 Type 2 diabetes mellitus with hyperglycemia; Z87.891 Personal history of nicotine dependence; Z95.5 Presence of coronary angioplasty implant and graft; Z79.82 Long term (current) use of aspirin; Z79.84 Long term (current) use of oral hypoglycemic drugs
CPT/HCPCS: 36415; 71046; 71275; 73502; 74174; 80048; 80053; 80061; 82962; 83036; 83735; 84100; 84484; 85025; 93005; 97161; 99285; Q9967; A4216; J2405

== ENCOUNTER 2025-03-02 11:03 | Emergency (ER) | payer MEDICARE, SELFPAY ==
[2025-03-02 11:05] VITALS: BP 117/100; PULSE 64; RESP 22; TEMP 36.6; O2SAT 96; BMI 26.6
--- NOTE | 2025-03-02 11:21 | CT_ITS ---
PROCEDURE: ABDOMEN/PELVIS W IV CONT ONLY 03/02/2025 REASON FOR EXAM: ABDOMINAL PAIN Several day history of nausea and vomiting. TECHNIQUE: Procedure Code: [id number] Modality: CT Procedure: ABDOMEN/PELVIS W IV CONT ONLY Coronal and Sagittal reconstruction series were provided. CONTRAST: Isovue-300 VOLUME: 100 mL One or more dose reduction techniques were used (e.g., Automated exposure control, adjustment of the mA and/or kV according to patient size, use of iterative reconstruction technique. RADIATION DOSE SUMMARY: CTDlvol: 16.4 mGy DLP: 567.23 mGycm COMPARISON: February 09, 2025. FINDINGS: Lung bases: The lung bases are clear. Hiatal hernia. Coronary artery calcification. Liver: Diffuse fatty infiltration. Gallbladder: Surgically absent. Spleen: Normal size. Pancreas: Diffuse fatty atrophy. Adrenals: Unremarkable Kidneys: Unremarkable Bladder: Distended urinary bladder. Reproductive Organs: Normal uterine size and contour. Ovaries are unremarkable. Bowel: Colonic diverticulosis without diverticulitis. Appendix: Unremarkable Lymph nodes: Unremarkable. Vasculature: Mild diffuse atherosclerotic calcifications are noted. Peritoneum / Retroperitoneum: Unremarkable Bones: Degenerative changes of the spine. Chronic loss of height of the superior endplate of the T12 and L4 vertebrae. CT/Abdomen/Pelvis W IV Cont ONLY IMPRESSION: Fatty infiltration of the liver. Status post cholecystectomy. Distended urinary bladder. Sigmoid diverticulosis. Reading Location: [id number]
[2025-03-02 11:31] LABS: Hematocrit 37.9 % (37-47); Hemoglobin 12.9 g/dL (12.0-15.0); Immature Granulocytes Count 0.120 X10^3/uL (0.0-0.0); Mean Corp Hgb Conc 34.0 g/dL (32-36); Mean Corpuscular Volume 90.0 fL (81-99); Mean Platelet Vol. 11.5 fl (6.2-12.0); NRBC Flagged by Analyzer 0 % (0-5); Platelet Count 332 K/mm3 (150-450); RBC Distribution Width CV 12.6 % (11.6-14.6); RBC Distribution Width SD 40.8 fl (35.1-43.9); Red Blood Count 4.21 M/mm3 (4.2-5.4); White Blood Count 16.8 K/mm3 (4.4-11.0)
[2025-03-02] MEDS: 0.9% Normal Saline (1000mL) 1,000 ML 999 ML IV (11:36)
--- NOTE | 2025-03-02 11:43 | EDS_ITS ---
HPI History of Present Illness Chief Complaint: Abd Pain Narrative Narrative: Chief complaint and HPI: 79-year-old female with past medical history of CAD, GERD, gastroparesis, DM2, COPD, diverticulitis presents for evaluation of right lower quadrant abdominal pain. Onset abdominal pain yesterday evening. Associated symptom is nausea and vomiting. Denies any fever, chills, chest pain, shortness of breath, dysuria, diarrhea, constipation. Patient states last time she felt like this it was acute diverticulitis. Review of systems: See HPI Medications: As listed on the chart Allergies: As listed on the chart PFSH: Per chart Vital signs: As listed on the chart. Reviewed. Physical exam: Gen: A&O x3, actively vomiting Head: Normocephalic, atraumatic Eyes: No sclera icterus, conjunctiva clear ENT: Mildly dry mucous membranes Neck: Trachea midline CV: RRR, no murmurs, no peripheral edema Resp: Lungs CTA BL, no w/r/c GI: Abd soft, non-distended, tender to palpation in the right lower quadrant, no r/r : No CVA tenderness Musc: Full ROM, no deformity Skin: Warm, dry Neuro: Alert, oriented, grossly intact Psych: Cooperative, appropriate mood and affect [facility] Medical History Abdominal discomfort Acute bronchitis, unspecified Hiatal hernia Diverticulosis PAD (peripheral artery disease) Heart disease Kidney disease Arthritis Presence of stent in coronary artery (~02/07/22) Old myocardial infarction Atherosclerotic heart disease of [place] coronary artery without angina pectoris NSTEMI (non-ST elevated myocardial infarction) (12/03/13) Essential hypertension Gastroparesis Syncope Diastolic dysfunction Pancreatic atrophy GERD (gastroesophageal reflux disease) Diabetes mellitus type II, uncontrolled COPD (chronic obstructive pulmonary disease) HLD (hyperlipidemia) Home Medications Medication Instructions Recorded Last Taken Type cholecalciferol (vitamin D3) 50 50 mcg PO DAILY vitami n 12/09/20 Unknown History mcg (2,000 unit) capsule vit 2 tab PO DAILY 06/28/22 Unkn own History Z-ydrxbzl-vnrsdtmhi-rutin-[id number] 500 mg-50 mg-25 mg-40 mg tablet (Bioflex) vitamin E mixed 400 unit tablet 400 unit PO DAILY 03/1 5/23 Unknown History glipizide 5 mg tablet, extended 5 mg PO BID 09/30/24 U nknown History release 24 hr apple cider vinegar 600 mg capsule 600 mg PO DAILY Unknown History cinnamon bark 500 mg capsule 500 mg PO DAILY 03/02/25 Unknown History (Cinnamon) Allergy/AdvReac Type Severity Reaction Status Date / Time benzonatate (From Tessalon Allergy lip, Verified 03/02/25 11:11 Perlharish) tongue swelling omeprazole (From Prilosec) AdvReac Other Verified 03/02/25 11:11 omeprazole magnesium (From AdvReac Other Verified 03/02/25 11:11 Prilosec) Family History Father Myocardial infarction Sister CAD (coronary artery disease) CABG X 5 Brother CAD (coronary artery disease) Sister Sudden cardiac , Onset Age: 49 Surgical History S/P PTCA (percutaneous transluminal coronary angioplasty) Presence of coronary angioplasty implant and graft (02/07/22) History of tonsillectomy History of cataract extraction History of section History of cholecystectomy (~2013) Social History Smoking Status: Former smoker how long ago did patient quit smokin years ago alcohol intake: never substance use type: does not use caffeine: No EXAM Physical Exam Const Vital Signs: 03/02/25 11:05 03/02/25 12:46 03/02/25 14:00 Temperature 98 F Temperature Source Temporal Pulse Rate 64 84 Respiratory Rate 22 H 20 H Blood Pressure 117/100 H 208/84 H 188/84 H Blood Pressure Mean 105 125 118 Pulse Ox 96 96 Oxygen Delivery Method Room Air 03/02/25 16:21 Temperature Temperature Source Pulse Rate Respiratory Rate Blood Pressure 191/81 H Blood Pressure Mean 117 Pulse Ox Oxygen Delivery Method MDM MDM MDM Narrative Medical decision making narrative: 79-year-old female with past medical history of CAD, GERD, gastroparesis, DM2, COPD, diverticulitis presents for evaluation of right lower quadrant abdominal pain. Onset abdominal pain yesterday evening. Associated symptom is nausea and vomiting. Differential diagnosis includes but is not limited to appendicitis, diverticulitis, electrolyte abnormality, YAIMA, UTI, gastroenteritis. NS bolus, Zofran, morphine ordered. Abdominal pain workup ordered including CT abdomen pelvis. CBC with mild leukocytosis of 16.8. No anemia. Platelets unremarkable. CMP shows baseline renal insufficiency with creatinine 1.35. Patient has hyperglycemia 355. Known diabetic. No transaminitis. Lipase unremarkable. UA positive for ketones consistent with mild dehydration as well as questionable for UTI. Urine culture sent. On reevaluation, patient still endorsing nausea vomiting and right lower quadrant abdominal pain. States that she feels like it might be radiating up to her epigastrium/lower chest. Therefore cardiac workup will be ordered. Aspirin and Pepcid ordered. EKG and chest x-ray reviewed. Troponin 28 and 25. Previous troponin 22. Patient's epigastrium/lower chest pain is radiating from her abdomen. It is improving. It is atypical in nature however patient is a moderate heart score of 5. Therefore cardiology was consulted and patient was discussed with Dr. Lindo. Low suspicion for cardiac etiology, okay to discharge home per his perspective. She was updated of all of her results and the recommendation from cardiology. On reevaluation, patient still endorsing lower abdominal pain. No clear etiology for her abdominal pain at this time. Again questionable UTI therefore we will give Keflex. Patient originally was comfortable discharging home but then states she cannot discharge home with the pain therefore hospitalist was consulted for intractable abdominal pain of unknown origin. Patient was discussed with Dr. Wellington. Does not meet any requirements for admission, recommends discharge home. Agrees with not giving any antinausea medicine on discharge given her elevated QTc. Patient tolerated her p.o. Keflex. Was able to tolerate some p.o. fluid intake. Patient will be discharged home. At this point in time, I do not feel comfortable discharging the patient home with narcotics as I do not have a source for her abdominal pain. Recommend Tylenol. Given her elevated QTc will not be prescribing any antinausea medicine as she already received multiple doses here in the emergency department and I do not want to cause an arrhythmia. Strict return precautions explained. Patient has been hypertensive here in the emergency department. Patient's hypertension improves with pain medicine. I do think there is a pain component. On chart review, patient has been hypertensive in the past in the 170s and 180s. Recommend her following up outpatient as she is not on any antihypertensive. Follow-up with primary care physician. She confirmed understanding of the plan. EKG: Interpreted by me/EM physician: EKG shows sinus rhythm with arrhythmia. Prolonged QTc of 501. No acute ischemic changes. Diagnostic: Interpreted by me/EM physician: Chest x-ray without effusion, cardiomegaly, pneumothorax, pneumonia. Radiology in agreement. Impression: 1. Abdominal pain of unclear etiology 2. Nausea and vomiting 3. Mild dehydration 4. Questionable UTI 5. HTN Lab Data Labs: Laboratory Results - last 24 hr 03/02/25 03/02/25 03/02/25 11:20 13:40 14:30 WBC 16.8 H RBC 4.21 Hgb 12.9 Hct 37.9 MCV 90.0 MCH 30.6 MCHC 34.0 RDW Std Deviation 40.8 RDW Coeff of [place] 12.6 Plt Count 332 MPV 11.5 Immature Gran % (Auto) 0.700 Neut % (Auto) 80.7 H Lymph % (Auto) 12.2 L [place] % (Auto) 4.6 Eos % (Auto) 0.7 Baso % (Auto) 1.1 H Absolute Neuts (auto) 13.6 H Absolute Lymphs (auto) 2.05 Nucleated RBC % 0 Sodium 136 Potassium 4.6 Chloride 99 Carbon Dioxide 21.2 Anion Gap 16 H BUN 37 H Creatinine 1.35 H Estim Creat Clear Calc 27.81 L Est GFR (MDRD) Non-Af 40 L BUN/Creatinine Ratio 27.3 H Glucose 355 H Calcium 10.7 Total Bilirubin 0.67 AST 26 ALT 10 Alkaline Phosphatase 150 H Troponin T High Sens 28 H D Troponin T Hi Sens 2 Hr 25 H Total Protein 7.5 Albumin 4.2 Globulin 3.3 Albumin/Globulin Ratio 1.3 Lipase 31 Urine Color Yellow Urine Clarity Cloudy Urine pH 6.5 Ur Specific [place] 1.010 Urine Protein 100 H Urine Glucose (UA) 1000 H Urine Ketones 15 H Urine Occult Blood 10 H Urine Nitrite Negative Urine Bilirubin Negative Urine Urobilinogen Normal Ur Leukocyte Esterase 25 H Urine RBC 0-5 SEEN Urine WBC 5-10 SEEN Ur Squamous Epith Cells 0-5 SEEN Urine Bacteria RARE Urine Mucus 0 SEEN Radiography Diagnostic Testing: Clinical Impression(s) from Imaging Studies Abdomen/Pelvis CT 03/02/25 11:21 IMPRESSION: Fatty infiltration of the liver. Status post cholecystectomy. Distended urinary bladder. Sigmoid diverticulosis. Reading Location: [id number] Chest X-Ray 03/02/25 14:09 IMPRESSION: No focal consolidations. Reading Location: [id number] Discharge Plan Triage Chief Complaint: Abd Pain ED Provider: Reuben Fairchild Dx/Rx/DC Orders Prescriptions: No Action cholecalciferol (vitamin D3) 50 mcg (2,000 unit) capsule 50 mcg PO DAILY Bioflex [id number] mg tablet 2 tab PO DAILY vitamin E mixed 400 unit tablet 400 unit PO DAILY glipizide 5 mg tablet extended release 24hr 5 mg PO BID cinnamon bark [Cinnamon] 500 mg capsule 500 mg PO DAILY apple cider vinegar 600 mg capsule 600 mg PO DAILY Primary Care Provider: Care Physician,No Primary Referrals: Care Physician,No Primary [Primary Care Provider, Medical] Print Language: Sinhala
[2025-03-02 11:57] LABS: AST(SGOT) 26 U/L (<=31); Alanine Aminotransfer ALT/SGPT 10 U/L (<=34); Albumin, Serum 4.2 g/dL (3.4-4.8); Alkaline Phosphatase 150 U/L (35-104); Anion Gap 16 (5-15); BUN 37 mg/dL (4-19); BUN/Creat Ratio 27.3 RATIO (10-20); Calcium,Total 10.7 mg/dL (7.6-11.0); Carbon Dioxide 21.2 mmol/L (21.0-32.0); Chloride 99 mmol/L (98-108); Estimated Creatinine Clearance 27.81 ml/min (50-250); Globulin 3.3 g/dL (2.2-4.2); Glucose 355 mg/dL (70-99); Lipase 31 U/L (13-75); Potassium 4.6 mmol/L (3.3-5.1)
[2025-03-02 12:46] VITALS: BP 208/84
[2025-03-02 13:50] LABS: Color, Urine Yellow (Yellow); Glucose, Dipstick 1000 mg/dl (Normal); Ketone-Dipstick 15 mg/dl (Negative); Leukocyte Esterase-Dipstick 25 /ul (Negative); Mucous, Urine 0 SEEN /hpf (<or=2+); Nitrite-Dipstick Negative (Negative); Occult Blood-Urine 10 /ul (Negative); Protein-Dipstick 100 mg/dl (Negative); Specific Gravity, Urine 1.010 (1.002-1.030); Urine Bilirubin Dipstick Negative (Negative)
[2025-03-02 13:56] LABS: Red Blood Cells-Urine 0-5 SEEN /hpf (0-5); Squamous Epithelial Cells - UA 0-5 SEEN /hpf (5-10)
[2025-03-02 14:00] VITALS: BP 188/84; PULSE 84; RESP 20; O2SAT 96
--- NOTE | 2025-03-02 14:09 | EKG12_ITS ---
Test Reason : CHEST PAIN Blood Pressure : */* mmHG Vent. Rate : 76 BPM Atrial Rate : 76 BPM P-R Int : 142 ms QRS Dur : 74 ms QT Int : 446 ms P-R-T Axes : 55 20 79 degrees QTcB Int : 501 ms Sinus rhythm with marked sinus arrhythmia Possible Left atrial enlargement Septal infarct , age undetermined Prolonged QT Abnormal ECG Confirmed by ENOC NICOLE, KOKO ([id number]), editorial cartoonist SARAH BELL ([id number]) on 03/03/2025 12:17:02 PM Referred By: Confirmed By: KOKO STUBBS MD
--- NOTE | 2025-03-02 14:09 | RAD_ITS ---
PROCEDURE: CHEST PA AND LATERAL 03/02/2025 REASON FOR EXAM: CHEST PAIN TECHNIQUE: Procedure Code: RADCXR Modality: DX Procedure: CHEST PA AND LATERAL FINDINGS: No focal consolidation. Left midlung atelectasis. No pleural effusion or pneumothorax. Cardiac silhouette is within normal limits. No acute fractures. RAD/Chest PA and Lateral IMPRESSION: No focal consolidations. Reading Location: [id number]
--- NOTE | 2025-03-02 14:09 | ED.RN ---
PT NOW COMPLAINS OF CHEST PAIN. DR AMBRIZ
--- OUTSIDE RECORDS SUMMARY | 2025-03-02 14:39 | XMS RPT_ITS | CCD ---
Author Organization [facility] Care Team Providers Care Development And Housing Director Name Role Phone Dr. Katt Ramsay Primary Care Provider Dr. Katt Ramsay Referring Provider [phone] Von UTILITY WORKER ROLLER SHOP, UTILITY WORKER ROLLER SHOP-C Sri Attending Provider Von UTILITY WORKER ROLLER SHOP, UTILITY WORKER ROLLER SHOP-C Sri Referring Provider Von SILVA, UTILITY WORKER ROLLER SHOP-C Sri Other Provider Dr. Rai Solorzano Attending Provider Dr. Katt Ramsay Primary Care Provider Dr. Katt Ramsay Referring Provider Von UTILITY WORKER ROLLER SHOP, UTILITY WORKER ROLLER SHOP-C Sri Attending Provider Von UTILITY WORKER ROLLER SHOP, UTILITY WORKER ROLLER SHOP-C Sri Referring Provider Von SILVA, UTILITY WORKER ROLLER SHOP-C Sri Other Provider Dr. Rai Solorzano Attending Provider [place] UTILITY WORKER ROLLER SHOP, UTILITY WORKER ROLLER SHOP-C Zac Allison Attending Provider Dr. Liam Grove Attending Provider Dr. Liam Grove Referring Provider Dr. Katt Ramsay Primary Care Provider [phone] Liam Grove Attending Provider Dr. Liam Grove Referring Provider Dr. Katt Ramsay Referring Provider [place] UTILITY WORKER ROLLER SHOP, UTILITY WORKER ROLLER SHOP-C Zac Allison Attending Provider Dr. Rai Solorzano Attending Provider Dr. Rai Solorzano Referring Provider Dr. Rai Solorzano Other Provider Dr. Jose Lindo Attending Provider Dr. Katt Ramsay Primary Care Provider Dr. Katt Ramsay Referring Provider [place] UTILITY WORKER ROLLER SHOP, UTILITY WORKER ROLLER SHOP-C Zac Allison Attending Provider Dr. Katt Ramsay Primary Care Provider Dr. Katt Ramsay Referring Provider Dr. Katt Ramsay Primary Care Provider Dr. Katt Ramsay Referring Provider CITLALY Duran Attending Provider SOBIA NICOLE, DR SHAIKH Primary Care Physician [place] UTILITY WORKER ROLLER SHOP, UTILITY WORKER ROLLER SHOP-C Zac Allison Attending Provider SOBIA NICOLE, DR SHAIKH Primary Care Unavailable JALYN MCADAMS MD Attending Unavailable MARLEE NICOLE, DR PAUL Attending UnavailDR KATT Simon MD Primary Care Unavailable MELLY CARTAGENA Attending Unavailable KATT RAMSAY Primary Care Unavailable MELLY CARTAGENA Referring Unavailable MELLY CARTAGENA Attending Unavailable KATT RAMSAY Primary Care Unavailable Dr. Katt Ramsay Primary Care Provider Dr. Katt Ramsay Referring Provider [place] UTILITY WORKER ROLLER SHOP, UTILITY WORKER ROLLER SHOP-C Zac Allison Attending Provider CITLALY Duran Attending Provider Dr. Katt Ramsay Primary Care Provider Dr. Katt Ramsay Referring Provider Katt Ramsay Primary Care Provider ERIBERTO KIMBALL Attending Unavailable KATT RAMSAY Primary Care Unavailable LAZARO, CARMEN Referring Unavailable KATT RAMSAY DEMARCUS Primary Care Unavailable LAZARO, CARMEN Referring Unavailable LAZARO, CARMEN Attending Unavailable KATT RAMSAY Primary Care Unavailable Dr. Katt Ramsay MD Primary Care Provider [phone] Sobia NICOLE, Dr. Katt Fritz Referring Provider Talya Lujan Attending Provider Talya Lujan Referring Provider Darek Duran Attending Provider Carol NICOLE, Dr. Hernandez Attending Provider Carol NICOLE, Dr. Hernandez Referring Provider Coral NICOLE, Dr. Kearney Attending Provider Coral NICOLE, Dr. Kearney Referring Provider [facility] RICARDO-Zac Howell Attending Provider Sobia NICOLE, Dr. Katt Fritz Primary Care Physician [phone] Sobia NICOLE, Dr. Katt Fritz Referring Provider [phone] [facility] UTILITY WORKER ROLLER SHOP-CZac Attending Physician Coral NICOLE, Dr. Kearney Attending Physician Angel Hicks MD Attending Physician Angel Hicks MD Referring Provider [phone] Alex Adhikari Attending Unavailable Care Physician, No Primary Primary Care Unava ilable Rai Mendoza Consulting Unavailable Rai Mendoza Admitting Unavailable Talya Gee Referring Unavailable Talya Gee Attending Unavailable Jolliff, Katt S Primary Care Unavailable AtanasovTalya Referring Unavailable SaminasTalya graham Attending Unavailable Jolliff, Katt S Primary Care Unavailable Alex Adhikari Attending Unavailable Care Physician, No Primary Primary Care Unava ilable Rai Mendoza Consulting Unavailable Rai Mendoza Admitting Unavailable Alex Adhikari Consulting Unavailable Care Physician, No Primary Primary Care Unava ilable Rai Mendoza Attending Unavailable SaminasTalya graham Attending Unavailable Jolliff, Katt S Referring Unavailable Jolliff, Katt S Primary Care Unavailable Jolliff, Katt S Referring Unavailable Jolliff, Katt S Primary Care Unavailable Darek Duran Attending Unavailable AtanasovTalya Attending Unavailable Jolliff, Katt S Referring Unavailable Jolliff, Katt S Primary Care Unavailable [place] UTILITY WORKER ROLLER SHOP, Zac Allison Attending Unavailable Jolliff, Katt S Primary Care Unavailable Jolliff, Katt S Referring Unavailable [place] UTILITY WORKER ROLLER SHOP, Zac Allison Attending Unavailable Jolliff, Katt S Referring Unavailable Jolliff, Katt S Primary Care Unavailable Carol, Jayaprakas Referring Unavailable Carol, Jayaprakas Attending Unavailable Jolliff, Katt S Primary Care Unavailable Christel Moncada Referring Unavailable Christel Moncada Attending Unavailable Jolliff, Katt S Primary Care Unavailable Fabiola, Chalon Referring Unavailable Fabiola Chalon Attending Unavailable Jolliff, Katt S Primary Care Unavailable Carol, Jayaprakas Referring Unavailable Carol, Jayaprakas Attending Unavailable Jolliff, Katt S Primary Care Unavailable Allergies Allergy Classification Reported Allergen(s) Allergy Type Date of Onset Reaction(s) Facility (20 sources) benzonatate; Translations: [benzonatate] Drug Allergy 4 Swelling [facility] (20 sources) Omeprazole Drug Allergy 1 Other [facility] Comment on above: Tongue and lip swell ing (20 sources) Omeprazole; Translations: [OMEPRAZOLE MAGNESIUM] Drug Allergy 4 Other: See Comments [facility] Comment on above: Tongue, lip swelling (2 sources) lansoprazole; Translations: [lansoprazole] Drug Allergy [facility] (6 sources) Baclofen; Translations: [BACLOFEN] Drug Allergy 1 Mental Status Change [facility] Other [facility] (1 source) benzonatate Drug Allergy 5 [facility] (1 source) Omeprazole Drug Allergy 5 [facility] Medications Current Medications Medication Drug Class(es) Dates Sig (Normalized) Sig (Original) ALPRAZolam 0.25 mg oral tablet (4 sources) Benzodiazepine Start: 12-06-2015 take 1 tablet by mouth once daily as needed for anxiety ALPRAZolam (XANAX) 0.25 mg tablet Take 1 tablet by mouth once daily as needed for Anxiety. 30 tablet 0 12/06/2015 Active amylase 42186 unt / lipase 5000 unt / protease 28864 unt delayed release oral capsule (4 sources) Start: 02-22-2015 take 1 capsule by mouth five times daily lipase-protease- amylase (ZENPEP) 5,000-17,000 -27,000 unit cpDR 1 capsule by mouth 5 times/day 150 capsule 11 02/22/2015 Active ascorbic acid 500 mg oral tablet (4 sources) Vitamin C Start: 02-16-2015 take 1 tablet by mouth once daily ascorbic acid (VITAMIN C) 500 mg tablet Take 1 tablet by mouth once daily. Pt takes 2000 mg daily 0 02/16/2015 Active atorvastatin / ezetimibe (4 sources) HMG-CoA Reductase Inhibitor, Dietary Cholesterol Absorption Inhibitor take 1 tablet by mouth once daily ezetimibe-atorva statin 10-10 mg tab Take 10 mg by mouth once daily. 0 Active benzonatate 100 mg oral capsule (4 sources) Non-narcotic Antitussive Start: 07-10-2018 take 1 capsule by mouth every eight hours as needed for cough and cough benzonatate (TESSALON PERLES) 100 mg capsule Indications: Cough Take 1 capsule by mouth three times daily as needed. 40 capsule 0 07/10/2018 Active beta-carotene,A,-vits C,E/mins (OCUVITE ORAL) (4 sources) beta-carotene,A, -vits C,E/mins (OCUVITE ORAL) Take by mouth. 0 Active cefdinir 300 mg oral capsule (1 source) Cephalosporin Antibacterial Start: 04-25-2023 End: 05-02-2023 cefdinir 300 mg oral capsule Dose : 300 mg = 1 cap(s), Oral, q12h, X 7 day(s), # 14 cap(s), 0 Refill(s), 05/02/23 6:46:00 PM EST, 61.4 Start Date: 04/25/23 Stop Date: 05/02/23 Status: Ordered cholecalciferol 0.05 mg oral capsule (20 sources) Vitamin D Start: 12-09-2020 take 1 capsule by mouth once daily Start: 07-12-2018 End: 08-26-2020 take 1 tablet by mouth once daily Cholecalciferol (Vitamin D3) 1,000 UNIT tablet Discontinued 1000 U PO DAILY July 12, 2018 12:00am August 26, 2020 1:05pm supplement cholecalciferol 1000 unt / vitamin k2 0.09 mg disintegrating oral tablet (4 sources) Vitamin D Vitamin D3-Menaquinone 7 1000-90 unit-mcg ODT Take by mouth. 0 Active chromium picolinate 0.2 mg oral capsule (4 sources) Start: 02-17-20 Chromium Picolinate 200 mcg cap Take by mouth. 0 02/16/2015 Active diclofenac sodium 0.01 mg/mg topical gel (4 sources) Nonsteroidal Anti-inflammatory Drug diclofenac sodium (VOLTAREN) 1 % topical gel Apply to affected area four times daily. 0 Active Finerenone (2 sources) Start: 10-01-19 25 take 1 tablet by mouth once daily Start: 09-30-2024 take 1 tablet by daniella th once daily Finerenone (Kerendia) 20 mg tablet Active 20 mg PO daily September 30, 2024 12:00am finerenone (KERENDIA) 20 mg tablet (4 sources) take 1 tablet by mouth once daily finerenone (KERENDIA) 20 mg tablet Take 20 mg by mouth once daily. 0 Active finerenone 20 MG Oral Tablet [Kerendia] (2 sources) Start: 03-09-2023 Kerendia 20 mg oral tablet Dose : 20 mg = 1 tab(s), Oral, qDay, # 30 tab(s), 0 Refill(s) Start Date: 03/09/23 Status: Ordered glipiZIDE er 5 mg 24 hr extended release oral tablet (20 sources) Sulfonylurea Start: 09-30-2024 take 1 tablet by mouth twice daily Start: 09-25-2022 End: 09-30-2024 take 1 tablet by mouth once daily Glipizide 5 mg tablet extended release 24hr Discontinued 5 mg PO DAILY September 25, 2022 12:00am September 30, 2024 2:18pm Start: 03-31-2019 End: 09-25-2022 take 2.5 tablets by mouth once daily Glipizide 2.5 tablet extended release 24hr Discontinued 5 mg PO DAILY March 31, 2019 1:00am September 25, 2022 12:58pm diabetes Start: 11-28-2016 take 1 tablet by daniella th once daily glipiZIDE XL (GLUCOTROL XL) 2.5 mg 24 hr tablet TAKE 1 TABLET BY MOUTH ONCE DAILY. 90 tablet 0 11/28/2016 Active Start: 11-28-2016 End: 09-25-2022 take 5 mg by mouth once daily Glipizide Discontinued 5 MG PO DAILY March 31, 2019 1:00am September 25, 2022 12:58pm Start: 02-12-2015 End: 07-12-2018 take 2.5 mg by mouth once daily Glipizide 5 MG tablet Discontinued 2.5 mg PO DAILY@729 30 February 12, 2015 8:34am July 12, 2018 8:35pm Start: 02-12-2015 End: 07-12-2018 take 2.5 mg by mouth once daily Glipizide Discontinued 2.5 MG PO DAILY@729February 12, 2015 8:34am July 12, 2018 8:35pm Start: 07-02-2014 End: 02-12-2015 take 1 tablet by mouth once daily Glipizide 5 MG tablet Discontinued 5 mg PO DAILY@729July 02, 2014 3:30pm February 12, 2015 8:34am gluc marion/chondro marion A/vit C/Mn (GLUCOSAMINE 1500 COMPLEX ORAL) (4 sources) gluc marion/chondro marion A/vit C/Mn (GLUCOSAMINE 1500 COMPLEX ORAL) Take by mouth. 0 Active 12 hr guaiFENesin 600 mg extended release oral tablet (4 sources) Start: 9 take 2 tablets by mouth twice daily guaiFENesin (MUCINEX) 600 mg 12 hr tablet Indications: Cough Take 2 tablets by mouth twice daily. 30 tablet 0 07/10/2018 Active 24 hr isosorbide mononitrate 30 mg extended release oral tablet (20 sources) Nitrate Vasodilator Start: 3 isosorbide mononitrate 30 mg oral tablet, extended release Dose : 30 mg = 1 tab(s), Oral, qAM, # 30 tab(s), 0 Refill(s) Start Date: 03/09/23 Status: Ordered Start: 07-13-2022 End: 07-19-2022 take 1 tablet by mouth once daily, then take 1 tablet by mouth every twenty-four hours Isosorbide Mononitrate 30 mg tablet extended release 24 hr Discontinued 30 mg PO DAILY 90 3 July 13, 2022 12:00am July 19, 2022 3:14pm Start: 09-15-2020 End: 02-08-2022 take 1 tablet by mouth once daily, then take 1 tablet by mouth every twenty-four hours Isosorbide Mononitrate 30 mg tablet extended release 24 hr Discontinued 30 mg PO DAILY 30 6 September 15, 2020 12:00am February 08, 2022 9:04am lisinopril 20 mg oral tablet (20 sources) Angiotensin Converting Enzyme Inhibitor Start: 02-10-2015 take 1 tablet by mouth once daily Start: 01-08-2014 End: 01-20-2014 take 1 tablet by mouth twice daily Lisinopril 20 MG tablet Discontinued 20 mg PO TWICE A DAY 60 0 January 08, 2014 4:17pm January 20, 2014 8:08am Start: 12-18-2013 End: 01-08-2014 take 1 tablet by mouth once daily Lisinopril 20 MG tablet Discontinued 20 mg PO DAILY 30 0 December 18, 2013 12:00am January 08, 2014 4:17pm Start: 12-06-2013 End: 12-18-2013 take 1 tablet by mouth once daily Lisinopril 5 MG tablet Discontinued 5 mg PO DAILY December 06, 2013 12:00am December 18, 2013 4:34pm Lopressor 25mg--USE metoprolol tartrate 25 mg oral tablet (2 sources) Start: 03-09-2023 Lopressor 25mg --USE metoprolol tartrate 25 mg oral tablet Dose : 25 mg = 1 tab(s), Oral, BID, TAKE 1 TABLET BY MOUTH TWICE A DAY Start Date: 03/09/23 Status: Ordered magnesium oxide 400 mg oral tablet (20 sources) Start: 02-16-2015 take 1 tablet by mouth once daily magnesium oxide (MAG-OX) 400 mg tablet Take 1 tablet by mouth once daily. 0 02/16/2015 Active Start: 01-01-2014 End: 01-20-2014 take 1 tablet by mouth once daily Magnesium Oxide 400 MG tablet Discontinued 400 mg PO DAILY January 01, 2014 12:00am January 20, 2014 8:06am Start: 12-03-2013 End: 12-18-2013 take 1 tablet by mouth twice daily Magnesium Oxide 400 MG tablet Discontinued 400 mg PO TWICE A DAY December 03, 2013 12:00am December 18, 2013 4:32pm 24 hr metFORMIN hydrochlorid e 500 mg extended release oral tablet (20 sources) Biguanide Start: 12-04-2023 End: 09-30-2024 Start: 12-07-2013 End: 12-10-2013 take 1 tablet by mouth twice daily at mealtime Metformin 500 MG tablet Discontinued 500 mg PO TWICE DAILY WITH MEALS 60 0 December 07, 2013 12:00am December 10, 2013 4:48pm metoclopramide 5 mg oral tablet (20 sources) Dopamine-2 Receptor Antagonist Start: 02-05-2015 take 1 tablet by mouth four times daily metoclopramide HCl (REGLAN) 5 mg tablet Take 1 tablet by mouth four times daily. 120 tablet 0 02/05/2015 Active Start: 01-08-2014 End: 07-05-2014 take 5 mg by mouth at bedtime Metoclopramide Hcl 10 MG tablet Discontinued 5 mg PO BEFORE MEALS AND AT BEDTIME July 02, 2014 4:25pm July 05, 2014 12:08pm Start: 01-08-2014 End: 07-05-2014 take 5 mg by mouth at bedtime Metoclopramide Hcl Disco ntinued 5 MG PO BEFORE MEALS AND AT BEDTIME July 02, 2014 4:25pm July 05, 2014 12:08pm Start: 12-22-2013 End: 12-23-2013 take 1 tablet by mouth four times daily Metoclopramide Hcl 10 MG tablet Discontinued 10 mg PO 4 TIMES DAILY 60 December 22, 2013 12:00am December 23, 2013 1:03pm Start: 12-18-2013 End: 12-23-2013 take 2.5 mg by mouth four times daily Metoclopramide Hcl (Reglan) 5 MG tablet Discontinued 2.5 mg PO 4 TIMES DAILY 60 December 18, 2013 12:00am December 23, 2013 1:02pm pantoprazole 40 mg delayed release oral tablet (20 sources) Proton Pump Inhibitor Start: 02-22-2015 take 1 tablet by mouth once daily pantoprazole DR (PROTONIX) 40 mg tablet Take 1 tablet by mouth once daily. 30 tablet 11 02/22/2015 Active Start: 01-01-2014 End: 01-08-2014 take 1 tablet by mouth once daily Pantoprazole 20 MG Tablet.Dr Discontinued 20 mg PO DAILY January 01, 2014 12:00am January 08, 2014 4:17pm Start: 12-03-2013 End: 12-10-2013 take 1 tablet by mouth once daily Pantoprazole 40 MG tablet Discontinued 40 mg PO DAILY December 03, 2013 12:00am December 10, 2013 4:51pm simvastatin 20 mg oral tablet (4 sources) HMG-CoA Reductase Inhibitor Start: 12-06-2015 take 1 tablet by mouth once daily at bedtime simvastatin (ZOCOR) 20 mg tablet Indications: Hyperlipidemia LDL goal Take 1 tablet by mouth daily at bedtime. 30 tablet 11 12/06/2015 Active Turmeric extract (4 sources) TURMERIC ORAL Ta ke by mouth. 0 Active vit J-seywxra-mauu-rut in-hb196 (BIOFLEX) 873-82-57-40 mg tab (4 sources) Start: 02-16-2015 vit J-ciwvlub-azyp-rutin -hb196 (BIOFLEX) 532-94-35-40 mg tab Take by mouth. 0 02/16/2015 Active Vit N-Ajdvfwk-Fphn-Rut in-Hb196 (Bioflex) 316-37-29-40 mg tablet (16 sources) Start: 06-28-2022 Start: 06-28-2022 Vit C-Bioflav- Mjcr-Bshtr-Tz070 (Bioflex) 337-50-47-40 mg tablet Active 2 {tbl} PO DAILY June 28, 2022 12:00am Start: 06-28-2022 take 2 tablets by mo uth once daily Vit F-Tnqbiia-Nkfo-Rutin-Hb196 (Bioflex) 208-69-84-40 mg tablet Active 2 TABLET PO DAILY June 27, 2022 11:00pm Start: 06-28-2022 take 2 tablets by mo uth once daily Vit L-Xsdmqrf-Ghxk-Rutin-Hb196 (Bioflex) 325-75-26-40 mg tablet Active 2 TABLET PO DAILY June 28, 2022 12:00am Vitamin E Mixed (20 sources) Start: 06-28-2022 take 400 [IU] by daniella th once daily Vitamin E Mixed Active 400 UNIT PO DAILY June 28, 2022 1:01pm Start: 06-28-2022 take 400 [IU] by daniella th once daily Vitamin E Mixed Active 400 UNIT PO DAILY June 28, 2022 2:01pm Start: 02-23-2022 End: 06-28-2022 Vitamin E Mixed Discontinued UNIT PO February 23, 2022 12:00am June 28, 2022 1:01pm Start: 02-23-2022 End: 06-28-2022 Vitamin E Mixed Discontinued UNIT PO February 23, 2022 1:00am June 28, 2022 2:01pm Start: 02-23-2022 Vitamin E Mixe d Active UNIT PO February 23, 2022 12:00am Vitamin E Mixed 400 unit tab let (12 sources) Start: 06-28-2022 Start: 06-28-2022 Vitamin E Mixe d 400 unit tablet Active 400 U PO DAILY June 28, 2022 2:01pm Start: 02-23-2022 End: 06-28-2022 Vitamin E Mixed 400 unit tab let Discontinued U PO February 23, 2022 1:00am June 28, 2022 2:01pm Completed/Discontinued Medications Medication Drug Class(es) Dates Sig (Normalized) Sig (Original) acetaminophen 650 mg rectal suppository (20 sources) Start: 01-08-2014 End: 01-20-2014 take 650 mg rectal route every six hours as needed for pain Acetaminophen 650 MG Suppos. Discontinued 650 mg RECTAL EVERY 6 HOURS NEEDED as needed for Pain 30 0 January 08, 2014 12:00am January 20, 2014 8:06am acetaminophen 325 mg / HYDROcodone bitartrate 5 mg oral tablet (12 sources) Opioid Agonist Start: 05-04-2023 End: 09-30-2024 Hydrocodone-Acetami nophen 5-325 mg tablet Discontinued 1 {tbl} PO EVERY 6 HOURS NEEDED as needed for Pain 10 3 0 May 04, 2023 September 30, 2024 2:16pm Abdominal pain Unspecified abdominal pain Start: 05-04-2023 take 1 tablet by daniella th every six hours as needed Hydrocodone-Acetaminophen Active 1 TABLE T PO EVERY 6 HOURS NEEDED 10 3 May 04, 2023 Start: 03-09-2023 End: 03-12-2023 take 1 tablet by mouth every eight hours Bailey 325- 5 mg oral tablet Dose = 1 tab(s), Oral, q8h, # 10 tab(s), 0 Refill(s), Abdominal pain, 61.4 Start Date: 03/09/23 Stop Date: 03/12/23 Status: Ordered [id number] actuat albuterol 0.09 mg/actuat metered dose inhaler (20 sources) beta2-Adrenergic Agonist Start: 07-12-2018 End: 07-18-2018 Albuterol Sulfate 8.5 GM HFA aerosol inhaler Discontinued 2 NMA INHALATION TWICE A DAY July 12, 2018 12:00am July 18, 2018 2:41pm sob Start: 07-12-2018 End: 07-18-2018 take 1 puff(s) by inhalation twice daily Albuterol Sulfate Discontinued 2 PUFF INHALATION TWICE A DAY July 12, 2018 12:00am July 18, 2018 2:41pm Start: 07-10-2018 take 2 puff(s) by in halation every four hours as needed albuterol HFA (PROVENTIL HFA, VENTOLIN HFA) 90 mcg/actuation inhaler Indications: Wheezing Inhale 2 Puffs as instructed every 4 hours as needed. 1 Inhaler 0 07/10/2018 Active amLODIPine 5 mg oral tablet (20 sources) Dihydropyridine Calcium Channel Jeni Start: 01-08-2014 End: 01-20-2014 take 1 tablet by mouth twice daily Amlodipine 5 MG tablet Discontinued 5 mg PO TWICE A DAY 60 0 January 08, 2014 12:00am January 20, 2014 8:08am Amox-Clav 875-125 mg Tablet (18 sources) Start: 07-13-2018 End: 07-15-2018 take 1 tablet by mouth twice daily Amox-Clav 875-125 mg Tablet Discontinued 1 TABLET PO TWICE A DAY July 13, 2018 8:07am July 15, 2018 12:57pm Start: 07-13-2018 End: 07-15-2018 take 1 tablet by mouth twice daily Amox-Clav 875-125 mg Tablet Discontinued 1 TABLET PO TWICE A DAY July 12, 2018 11:00pm July 15, 2018 11:57am Start: 07-13-2018 End: 07-15-2018 take 1 tablet by mouth twice daily Amox-Clav 875-125 mg Tablet Discontinued 1 TABLET PO TWICE A DAY July 13, 2018 12:00am July 15, 2018 12:57pm Amox-Clav 875-125 mg Tablet tablet (6 sources) Start: 07-13-2018 End: 07-15-2018 Amox-Clav 875-125 mg Tablet tablet Discontinued 1 {tbl} PO TWICE A DAY July 13, 2018 12:00am July 15, 2018 12:57pm amoxicillin 500 mg / clavulanate 125 mg oral tablet (20 sources) Penicillin-class Antibacterial Start: 01-01-2014 End: 01-08-2014 Amoxicillin-Pot Clavulanate 1 EACH tablet Discontinued 1 NMA PO Q12H January 01, 2014 12:00am January 08, 2014 3:56pm Start: 01-01-2014 End: 01-08-2014 Amoxicillin-Pot Clavulanate Discontinued 1 EACH PO Q12H January 01, 2014 12:00am January 08, 2014 3:56pm aspirin 81 mg delayed release oral tablet (20 sources) Platelet Aggregation Inhibitor, Nonsteroidal Anti-inflammatory Drug Start: 12-06-2013 End: 02-18-2020 take 1 tablet by mouth once daily as needed for pain Aspirin 81 mg tablet,delayed release (DR/EC) Discontinued 81 mg PO DAILY@0800 as needed for pain July 18, 2018 2:42pm February 18, 2020 11:08am atorvastatin 40 mg oral tablet (20 sources) HMG-CoA Reductase Inhibitor Start: 02-08-2022 End: 02-23-2022 take 1 tablet by mouth at bedtime Atorvastatin 40 mg Tablet Discontinued 40 mg PO AT BEDTIME 90 3 February 08, 2022 12:00am February 23, 2022 11:40am Start: 07-15-2018 End: 07-18-2018 take 1 tablet by mouth at bedtime Atorvastatin 10 MG tablet Discontinued 10 mg PO AT BEDTIME 30 0 July 15, 2018 12:00am July 18, 2018 2:43pm Start: 01-08-2014 End: 01-20-2014 Atorvastatin 80 MG tablet Discontinued 40 mg PO AT BEDTIME 30 0 January 08, 2014 4:17pm January 20, 2014 8:08am Start: 01-08-2014 End: 01-20-2014 take 40 mg by mouth at bedtime Atorvastatin Discontinu ed 40 MG PO AT BEDTIME January 08, 2014 4:17pm January 20, 2014 8:08am Start: 12-06-2013 End: 01-08-2014 take 1 tablet by mouth at bedtime Atorvastatin 80 MG tablet Discontinued 80 mg PO AT BEDTIME December 06, 2013 12:00am January 08, 2014 4:17pm azithromycin 250 mg oral tablet (12 sources) Macrolide Antimicrobial Start: 01-17-2023 End: 03-29-2023 Azithromycin 250 mg tablet Discontinued 250 mg PO daily 6 0 January 17, 2023 12:00am March 29, 2023 10:26am 2 tablets today, then 1 tablet daily on days 2 through 5 Benzocaine (1 source) Standardized Chemical Allergen Start: 08-14-2023 End: 08-14-2023 benzocaine 20% 1 [place] (TOPEX) biotin 10 mg oral capsule (20 sources) Start: 07-12-2018 End: 02-18-2020 take 1 capsule by mouth once daily Biotin 10,000 MCG capsule Discontinued 21652 ug PO DAILY July 12, 2018 12:00am February 18, 2020 11:07am supplement BIOTIN ORAL Take by mouth. 0 Active bismuth subsalicylate 17.5 mg/ml oral suspension (20 sources) Bismuth Start: 12-06-2013 End: 12-10-2013 take 1 mL by mouth four times daily Bismuth Subsalicylate 262 MG/15 ML Ml Discontinued 524 mg PO 4 TIMES DAILY December 06, 2013 12:00am December 10, 2013 4:48pm busPIRone hydrochloride 5 mg oral tablet (20 sources) Start: 01-08-2014 End: 01-20-2014 take 1 tablet by mouth twice daily Buspirone 5 MG tablet Discontinued 5 mg PO TWICE A DAY 60 0 January 08, 2014 12:00am January 20, 2014 8:06am C,E,Copper,Zinc 25-Qydij9e-Qaf (Ocuvite Adult 50 Plus) 250-5-1 mg capsule (2 sources) Start: 02-18-2020 End: 08-26-2020 C,E,Copper,Zinc 18-Rivel4z-Dbe (Ocuvite Adult 50 Plus) 250-5-1 mg capsule Discontinued 1 NMA PO DAILY February 18, 2020 1:00am August 26, 2020 1:05pm C,E,Zinc,Copper 50-[id number]-Fir (Ocuvite Adult 50 Plus) 250-5-1 mg capsule (20 sources) Start: 02-18-2020 End: 08-26-2020 C,E,Zinc,Copper 52-Icdxd4l-Jbp (Ocuvite Adult 50 Plus) 250-5-1 mg capsule Discontinued 1 CAP PO DAILY February 18, 2020 11:06am August 26, 2020 1:05pm Start: 02-18-2020 End: 08-26-2020 C,E,Zinc,Copper 37-Dzgam0d-H ut (Ocuvite Adult 50 Plus) 250-5-1 mg capsule Discontinued 1 NMA PO DAILY February 18, 2020 1:00am August 26, 2020 1:05pm Start: 02-18-2020 End: 08-26-2020 C,E,Zinc,Copper 49-[id number]-E ut (Ocuvite Adult 50 Plus) 250-5-1 mg capsule Discontinued 1 CAP PO DAILY February 18, 2020 12:00am August 26, 2020 12:05pm Start: 02-18-2020 End: 08-26-2020 C,E,Zinc,Copper 49-Zsjcm2y-L ut (Ocuvite Adult 50 Plus) 250-5-1 mg capsule Discontinued 1 CAP PO DAILY February 18, 2020 1:00am August 26, 2020 1:05pm calcium chloride 0.0014 meq/ml / potassium chloride 0.004 meq/ml / sodium chloride 0.103 meq/ml / sodium lactate 0.028 meq/ml injectable solution (1 source) Start: 08-14-2023 End: 08-14-2023 lactated ringers iv infusion cephalexin 500 mg oral capsule (2 sources) Cephalosporin Antibacterial Start: 03-09-2023 End: 03-16-2023 cephalexin 500 mg oral capsule Dose : 500 mg = 1 cap(s), Oral, BID, # 14 cap(s), 0 Refill(s), 61.4 Start Date: 03/09/23 Stop Date: 03/16/23 Status: Ordered chondroitin sulfates 200 mg / glucosamine hydrochloride 250 mg oral tablet (20 sources) Start: 02-18-2020 End: 08-26-2020 Glucosamine-Chondr oitin (Osteo Bi-Flex) 250-200 mg tablet Discontinued 1 {tbl} PO DAILY February 18, 2020 1:00am August 26, 2020 1:05pm cinnamon bark 500 mg oral capsule (20 sources) Start: 02-16-2015 End: 02-18-2020 take 1 capsule by mouth once daily as needed Cinnamon Bark 500 mg capsule Discontinued 500 mg PO DAILY as needed for supplement January 22, 2019 2:18pm February 18, 2020 11:08am clopidogrel 75 mg oral tablet (20 sources) [id number] Platelet Inhibitor Start: 02-08-2022 End: 03-29-2023 take 1 tablet by mouth once daily Clopidogrel 75 mg tablet Discontinued 75 mg PO DAILY 90 January 31, 2023 8:12am March 29, 2023 10:53am Start: 09-06-2020 End: 01-26-2022 take 1 tablet by mouth once daily Clopidogrel (Plavix) 75 mg tablet Discontinued 75 mg PO DAILY 90 April 18, 2021 12:42pm January 26, 2022 12:50pm docusate sodium 100 mg oral capsule (20 sources) Start: 12-10-2013 End: 01-20-2014 take 1 capsule by mouth twice daily as needed for constipation Docusate Sodium (Dok) 100 MG capsule Discontinued 100 mg PO TWICE DAILY NEEDED as needed for Constipation 60 0 December 10, 2013 12:00am January 20, 2014 8:06am doxycycline monohydrate 100 mg oral capsule (20 sources) Tetracycline-class Drug Start: 12-06-2013 End: 12-10-2013 take 1 capsule by mouth twice daily Doxycycline Hyclate 100 MG capsule Discontinued 100 mg PO TWICE A DAY December 06, 2013 12:00am December 10, 2013 4:48pm erythromycin ethylsuccinate 40 mg/ml oral suspension (20 sources) Macrolide, Macrolide Antimicrobial Start: 01-08-2014 End: 01-20-2014 Erythromycin Ethylsuccinate (Eryped 200) 200 MG/5 ML Ml Discontinued 200 mg PO THREE TIMES DAILY BEFORE MEALS 7 0 January 08, 2014 12:00am January 20, 2014 8:06am DC after 7 days ezetimibe 10 mg oral tablet (20 sources) Dietary Cholesterol Absorption Inhibitor Start: 05-30-2022 End: 09-30-2024 take 1 tablet by mouth once daily Ezetimibe (Zetia) 10 mg tablet Discontinued 10 mg PO DAILY 90 April 21, 2024 1:40pm September 30, 2024 2:18pm 1 ml fentaNYL 0.05 mg/ml injection (1 source) Opioid Agonist Start: 08-14-2023 End: 08-14-2023 fentaNYL 50 mcg/mL 25-100 mcg injection (SUBLIMAZE) Finerenone (20 sources) Start: 03-29-2023 End: 09-30-2024 take 1 tablet by mouth once daily Finerenone (Kerendia) 10 mg tablet Discontinued 20 mg PO DAILY March 29, 2023 10:26am September 30, 2024 2:14pm kidneys Start: 03-29-2023 End: 09-30-2024 take 1 tablet by mouth once daily Finerenone (Kerendia) 10 mg tablet Discontinued 20 mg PO DAILY March 29, 2023 10:26am September 30, 2024 2:14pm Start: 03-29-2023 take 1 tablet by daniella th once daily Finerenone (Kerendia) 10 mg tablet Active 20 mg PO DAILY March 29, 2023 10:26am Start: 03-29-2023 take 1 tablet by daniella th once daily Finerenone (Kerendia) 10 mg tablet Active 20 MG PO DAILY March 29, 2023 10:26am Start: 03-29-2023 take 1 tablet by daniella th once daily Finerenone (Kerendia) 10 mg tablet Active 20 MG PO DAILY March 29, 2023 9:26am Start: 02-07-2022 End: 03-29-2023 take 1 tablet by mouth once daily Finerenone (Kerendia) 10 mg tablet Discontinued 10 mg PO DAILY February 07, 2022 12:00am March 29, 2023 10:28am kidneys Start: 02-07-2022 End: 03-29-2023 take 1 tablet by mouth once daily Finerenone (Kerendia) 10 mg tablet Discontinued 10 mg PO DAILY February 07, 2022 12:00am March 29, 2023 10:28am Start: 02-07-2022 End: 03-29-2023 take 1 tablet by mouth once daily Finerenone (Kerendia) 10 mg tablet Discontinued 10 MG PO DAILY February 07, 2022 12:00am March 29, 2023 10:28am Start: 02-07-2022 End: 03-29-2023 take 1 tablet by mouth once daily Finerenone (Kerendia) 10 mg tablet Discontinued 10 MG PO DAILY February 06, 2022 11:00pm March 29, 2023 9:28am Start: 02-07-2022 take 1 tablet by daniella th once daily Finerenone (Kerendia) 10 mg tablet Active 10 MG PO DAILY February 06, 2022 11:00pm Start: 02-07-2022 take 1 tablet by daniella th once daily Finerenone (Kerendia) 10 mg tablet Active 10 MG PO DAILY February 07, 2022 12:00am fluticasone propionate 0.05 mg/actuat metered dose nasal spray (20 sources) Corticosteroid Start: 07-18-2018 End: 01-22-2019 Fluticasone Propionate 50 mcg/actuation spray,suspension Discontinued 2 NMA INTRANASAL DAILY as needed July 18, 2018 2:43pm January 22, 2019 2:17pm Start: 07-15-2018 End: 07-18-2018 Fluticasone Propionate 1 SPR AY spray,suspension Discontinued 2 NMA NASAL DAILY 1 0 July 15, 2018 12:00am July 18, 2018 2:45pm Start: 07-15-2018 End: 01-22-2019 Fluticasone Propionate Disco ntinued 2 SPRAY INTRANASAL DAILY July 18, 2018 2:43pm January 22, 2019 2:17pm Ginkgo Biloba (20 sources) Start: 07-12-2018 End: 07-18-2018 take 60 mg by mouth once daily Ginkgo Biloba Discontinued 60 MG PO DAILY July 12, 2018 8:19pm July 18, 2018 2:44pm Start: 07-12-2018 End: 07-18-2018 take 1 capsule by mouth once daily Ginkgo Biloba 60 MG capsule Discontinued 60 mg PO DAILY July 12, 2018 12:00am July 18, 2018 2:44pm memory Start: 07-12-2018 End: 07-18-2018 take 1 capsule by mouth once daily Ginkgo Biloba 60 MG capsule Discontinued 60 mg PO DAILY July 12, 2018 12:00am July 18, 2018 2:44pm Start: 07-12-2018 End: 07-18-2018 take 60 mg by mouth once daily Ginkgo Biloba Discontin ued 60 MG PO DAILY July 11, 2018 11:00pm July 18, 2018 1:44pm Start: 07-12-2018 End: 07-18-2018 take 60 mg by mouth once daily Ginkgo Biloba Discontin ued 60 MG PO DAILY July 12, 2018 12:00am July 18, 2018 2:44pm Start: 02-16-2015 Ginkgo Biloba (GINKGO) 60 mg tab Take by mouth. 0 02/16/2015 Active hyoscyamine sulfate 0.125 mg sublingual tablet (20 sources) Start: 01-01-2014 End: 01-08-2014 Hyoscyamine Sulfate 0.125 MG Tab.Subl Discontinued 0.125 mg SL THREE TIMES A DAY January 01, 2014 12:00am January 08, 2014 3:57pm LORazepam 0.5 mg oral tablet (20 sources) Benzodiazepine Start: 01-01-2014 End: 01-08-2014 take 1 tablet by mouth three times daily as needed for anxiety Lorazepam 0.5 MG tablet Discontinued 0.5 mg PO 3 TIMES DAILY NEEDED as needed for Anxiety January 01, 2014 12:00am January 08, 2014 3:57pm magnesium citrate 58.2 mg/ml oral solution (10 sources) Start: 05-04-2023 End: 12-04-2023 take 1 mL by mouth once Magnesium Citrate solution Discontinued 300 mL PO ONE TIME 1 May 04, 2023 1:00am December 04, 2023 1:06pm Start: 05-04-2023 take 1 mL by mouth once Magnes ium Citrate Active 300 ML PO ONE TIME 1 May 04, 2023 1:00am meclizine hydrochloride 25 mg oral tablet (20 sources) Antiemetic Start: 07-18-2018 End: 01-22-2019 Meclizine 25 mg tablet Discontinued PO 20 5 0 July 18, 2018 12:00am January 22, 2019 2:18pm Start: 07-18-2018 End: 01-22-2019 Meclizine Discontinued PO 20 5 July 18, 2018 12:00am January 22, 2019 2:18pm metoprolol tartrate 25 mg oral tablet (20 sources) beta-Adrenergic Jeni Start: 02-08-2022 End: 12-04-2023 take 1 tablet by mouth twice daily Metoprolol Tartrate 25 mg tablet Discontinued 25 mg PO TWICE A DAY 180 3 January 31, 2023 8:12am December 04, 2023 1:06pm Start: 09-15-2020 End: 12-09-2020 take 1 tablet by mouth twice daily Metoprolol Tartrate 25 mg tablet Discontinued 25 mg PO TWICE A DAY 60 6 September 15, 2020 12:00am December 09, 2020 1:55pm metroNIDAZOLE 500 mg oral tablet (20 sources) Nitroimidazole Antimicrobial Start: 12-06-2013 End: 12-10-2013 take 1 tablet by mouth once daily Metronidazole 500 MG tablet Discontinued 500 mg PO DAILY December 06, 2013 12:00am December 10, 2013 4:48pm 5 ml midazolam 1 mg/ml injection (1 source) Benzodiazepine Start: 08-14-2023 End: 08-14-2023 midazolam (PF) 1-5 mg injection (VERSED) nitrofurantoin, macrocrystals 25 mg / nitrofurantoin, monohydrate 75 mg oral capsule (14 sources) Nitrofuran Antibacterial Start: 08-27-2023 End: 09-03-2023 take 1 capsule by mouth every twelve hours at mealtime Nitrofurantoin Monohyd/M-Cryst (Macrobid) 100 mg capsule Discontinued 100 mg PO Q12H 14 7 0 August 27, 2023 12:00am September 02, 2023 12:00am September 03, 2023 12:04am must administer with a meal/food Start: 07-16-2023 End: 07-21-2023 take 1 capsule by mouth every twelve hours at mealtime Nitrofurantoin Monohyd/M-Cryst (Macrobid) 100 mg capsule Discontinued 100 mg PO Q12H 10 5 0 July 16, 2023 12:00am July 20, 2023 12:00am July 21, 2023 12:14am must administer with a meal/food nitroglycerin 0.4 mg sublingual tablet (20 sources) Nitrate Vasodilator Start: 01-01-2014 End: 03-29-2023 Nitroglycerin Discontinued 0.4 MG SL Q5M January 27, 2022 3:19pm March 29, 2023 10:29am Start: 12-29-2013 End: 09-30-2024 Nitroglycerin 0.4 mg tablet, sublingual Discontinued 0.4 mg SL Q5M as needed for Chest Pain 08 10January 27, 2022 3:19pm March 29, 2023 10:29am omeprazole 40 mg delayed release oral capsule (11 sources) Proton Pump Inhibitor Start: 03-29-2023 End: 12-04-2023 take 1 capsule by mouth once daily Omeprazole 40 mg capsule,delayed release(DR/EC) Discontinued 40 mg PO DAILY March 29, 2023 1:00am December 04, 2023 1:07pm ondansetron 4 mg oral tablet (20 sources) Serotonin-3 Receptor Antagonist Start: 04-01-2019 End: 07-21-2019 take 1 tablet by mouth every six hours as needed for nausea Ondansetron Hcl 4 MG tablet Discontinued 4 mg PO EVERY 6 HOURS NEEDED as needed for Nausea 16 0 April 01, 2019 11:54am July 21, 2019 10:33am Start: 01-01-2014 End: 01-20-2014 take 1 tablet by mouth every six hours as needed for nausea Ondansetron (Zofran Odt) 8 MG Tab.Rapdis Discontinued 8 mg PO EVERY 6 HOURS NEEDED as needed for Nausea/Vomiting January 01, 2014 12:00am January 20, 2014 8:06am Start: 12-10-2013 End: 12-23-2013 take 1 tablet by mouth every six hours as needed for nausea Ondansetron Hcl 8 MG tablet Discontinued 8 mg PO EVERY 6 HOURS NEEDED as needed for nausea, emesis 60 0 December 18, 2013 4:34pm December 23, 2013 1:03pm oseltamivir 30 mg oral capsule (20 sources) Neuraminidase Inhibitor Start: 07-15-2018 End: 01-22-2019 take 1 capsule by mouth twice daily Oseltamivir 30 MG capsule Discontinued 30 mg PO TWICE A DAY 6 0 July 15, 2018 12:00am January 22, 2019 2:18pm oxyCODONE hydrochloride 5 mg oral tablet (20 sources) Opioid Agonist Start: 12-10-2013 End: 12-18-2013 take 2 tablets by mouth every four hours as needed for pain Oxycodone 5 MG tablet Discontinued 10 mg PO EVERY 4 HOURS NEEDED as needed for Moderate Pain (pain scale 4-5) 30 0 December 10, 2013 12:00am December 18, 2013 4:33pm Start: 12-10-2013 End: 12-18-2013 take 10 mg by mouth every four hours as needed Oxycodone Discontinued 10 MG PO EVERY 4 HOURS NEEDED 30 December 10, 2013 12:00am December 18, 2013 4:33pm polyethylene glycol 3350 [id number] mg / potassium chloride 2970 mg / sodium bicarbonate 6740 mg / sodium chloride 5860 mg / sodium sulfate 64025 mg powder for oral solution (1 source) Osmotic Laxative Start: 08-06-2023 End: 08-06-2023 peg 3350-Electrolytes (GOLYTELY) 236-22.74-6.74 -5.86 gram suspension Take 4,000 mL by mouth one time only for 1 dose. 1 Each 0 08/06/2023 08/06/2023 potassium chloride 1.33 meq/ml oral solution (20 sources) Start: 01-08-2014 End: 01-20-2014 take 20 mEq by mouth once daily Potassium Chloride 20 MEQ/15 ML Udc Discontinued 20 meq PO DAILY 30 0 January 08, 2014 12:00am January 20, 2014 8:06am please put through NG tube Start: 12-03-2013 End: 12-18-2013 Potassium Chloride (Klor-Con 10) 10 MEQ Tablet.Er Discontinued 20 meq PO TWICE A DAY December 03, 2013 12:00am December 18, 2013 4:33pm prochlorperazine 25 mg rectal suppository (20 sources) Phenothiazine Start: 01-08-2014 End: 01-20-2014 take 25 mg rectal route once daily as needed for nausea Prochlorperazine 25 MG Suppos. Discontinued 25 mg RECTAL DAILY NEEDED as needed for Nausea 20 January 08, 2014 12:00am January 20, 2014 8:06am Start: 12-06-2013 End: 12-10-2013 take 25 mg rectal route twice daily as needed for nausea Prochlorperazine 25 MG Suppos. Discontinued 25 mg RECTAL TWICE DAILY NEEDED as needed for Nausea December 06, 2013 12:00am December 10, 2013 4:48pm promethazine hydrochloride 25 mg oral tablet (20 sources) Phenothiazine Start: 01-01-2014 End: 01-08-2014 take 1 tablet by mouth every eight hours as needed for nausea Promethazine 25 MG tablet Discontinued 25 mg PO EVERY 8 HOURS NEEDED as needed for Nausea/Vomiting January 01, 2014 12:00am January 08, 2014 4:08pm Start: 12-10-2013 End: 12-18-2013 take 1 tablet by mouth every eight hours as needed for nausea Promethazine 25 MG tablet Discontinued 25 mg PO EVERY 8 HOURS NEEDED as needed for nausea, emesis December 10, 2013 12:00am December 18, 2013 4:33pm Use if zofran does not control nausea or emesis. Markedly sedating medication. Do not drive with this medication. psyllium 3400 mg powder for oral suspension (20 sources) Start: 12-10-2013 End: 12-18-2013 take 1 dose by mouth once daily Psyllium Husk (Metamucil) 1 PACKET Packet Discontinued 1 NMA PO DAILY 30 0 December 10, 2013 12:00am December 18, 2013 4:33pm Start: 12-10-2013 End: 12-18-2013 take 1 dose by mouth once daily Psyllium Husk (Aspartame) (Metamucil) 1 PACKET Packet Discontinued 1 PACKET PO DAILY 30 December 10, 2013 12:00am December 18, 2013 4:33pm sucralfate 1000 mg oral tablet (20 sources) Aluminum Complex Start: 01-01-2014 End: 01-08-2014 take 1 tablet by mouth four times daily Sucralfate 1 GM tablet Discontinued 1 g PO 4 TIMES DAILY January 01, 2014 12:00am January 08, 2014 4:07pm Start: 12-06-2013 End: 12-10-2013 take 1 tablet by mouth four times daily Sucralfate 1 GM tablet Discontinued 1 g PO 4 TIMES DAILY December 06, 2013 12:00am December 10, 2013 4:48pm traMADol hydrochloride 50 mg oral tablet (20 sources) Opioid Agonist Start: 01-01-2014 End: 01-08-2014 take 1 tablet by mouth every six hours Tramadol 50 MG tablet Discontinued 50 mg PO EVERY 6 HOURS January 01, 2014 12:00am January 08, 2014 4:07pm valACYclovir 1000 mg oral tablet (1 source) [...] Date: 04/25/23 Stop Date: 05/02/23 Status: Ordered Vit E-Qeqnpjg-Dcze-Rutin -Hb196 (18 sources) Start: 07-12-2018 End: 01-22-2019 take 1 tablet by mouth once daily Vit V-Vylodrx-Cepx-Rut in-Hb196 Discontinued 1 TABLET PO DAILY July 12, 2018 8:19pm January 22, 2019 2:19pm Start: 07-12-2018 End: 01-22-2019 take 1 tablet by mouth once daily Vit B-Olnmyor-Ytwu-Rutin-Hb196 Discontin ued 1 TABLET PO DAILY July 11, 2018 11:00pm January 22, 2019 1:19pm Start: 07-12-2018 End: 01-22-2019 take 1 tablet by mouth once daily Vit B-Jpwxqpl-Ctld-Rutin-Hb196 Discontin ued 1 TABLET PO DAILY July 12, 2018 12:00am January 22, 2019 2:19pm Vit F-Lidforc-Uqla-Rutin-Hb1 96 1 EACH tablet (6 sources) Start: 07-12-2018 End: 01-22-2019 take 1 tablet by mouth once daily Vit N-Vhoualr-Ccpq-Rutin-Hb196 1 EACH tablet Discontinued 1 {tbl} PO DAILY July 12, 2018 12:00am January 22, 2019 2:19pm supplement Start: 07-12-2018 End: 01-22-2019 take 1 tablet by mouth once daily Vit N-Dsgxrqf-Gskc-Rutin-Hb196 1 EACH tablet Discontinued 1 {tbl} PO DAILY July 12, 2018 12:00am January 22, 2019 2:19pm vitamin b6 100 mg oral tablet (20 sources) Start: 03-29-2023 End: 09-30-2024 take 1 tablet by mouth once daily Pyridoxine (Vitamin B6) 100 mg tablet Discontinued 100 mg PO DAILY March 29, 2023 1:00am September 30, 2024 2:18pm Start: 02-23-2022 End: 05-30-2022 Pyridoxine (Vitamin B6) 100 mg tablet Discontinued 300 mg PO DAILY February 23, 2022 1:00am May 30, 2022 2:16pm vitamin e 450 mg oral capsule (20 sources) Start: 02-18-2020 End: 08-26-2020 take 1 [IU] by mouth once daily Vitamin E Mixed 1,000 unit capsule Discontinued 1 U PO DAILY February 18, 2020 1:00am August 26, 2020 1:05pm Start: 02-18-2020 End: 08-26-2020 take 1 [IU] by mouth once daily Vitamin E Mixed Discontinued 1 UNIT PO DAILY February 18, 2020 1:00am August 26, 2020 1:05pm Problems Active Problems Problem Classification Problem Date Documented Da te Episodic/Chronic Abdominal hernia (11 sources) Hiatal hernia; Translations: [Diaphragmatic hernia without obstruction or gangrene] 03-29-2023 Episodic Acute bronchitis (11 sources) Acute bronchitis; Translations: [Acute bronchitis, unspecified] 06-24-2024 Episodic Anxiety disorders (4 sources) Anxiety; Translations: [Anxiety disorder, unspecified] Onset: 4 Chronic Chronic kidney disease (1 source) Chronic kidney disease; Translations: [Chronic kidney disease, stage 3b] Onset: 5 Chronic obstructive pulmonary disease and bronchiectasis (20 sources) Chronic obstructive lung disease; Translations: [Chronic obstructive pulmonary disease, unspecified] 03-31-2019 Chronic Conditions associated with dizziness or vertigo (20 sources) Dizziness; Translations: [Dizziness and giddiness] 07-19-2018 Episodic Coronary atherosclerosis and other heart disease (20 sources) Old myocardial infarction; Translations: [Old myocardial infarction] Onset: 4 Chronic Comment on above: PTCA/stent of the LC X 02/07/22 Dr. Adams; Successful CLEMENT to pRCA per cardiac cath 09/14/20;2.25 X 23 CLEMENT to mid LAD, 2.75 X 23 CLEMENT to Proximal RCA @ [facility] 2013; Coronary atherosclerosis and other heart disease (20 sources) Stented coronary artery; Translations: [Presence of coronary angioplasty implant and graft] Onset: 4 Episodic Comment on above: PTCA/stent of the LC X 02/07/22 Dr. Adams; Successful CLEMENT to pRCA per cardiac cath 09/14/20;2.25 X 23 CLEMENT to mid LAD, 2.75 X 23 CLEMENT to Proximal RCA @ [facility] 2013; Diabetes mellitus with complications (20 sources) Type II diabetes mellitus uncontrolled; Translations: [Uncontrolled type II diabetes mellitus] Onset: 5 Resolved: 6 03-31-2019 Chronic Diabetes mellitus without complication (20 sources) Diabetes mellitus; Translations: [Type 2 diabetes mellitus without complications] Chronic Disorders of lipid metabolism (20 sources) Hyperlipidemia; Translations: [Hyperlipidemia, unspecified] Onset: 6 Chronic Diverticulosis and diverticulitis (13 sources) Diverticular disease; Translations: [Diverticulosis of intestine, part unspecified, without perforation or abscess without bleeding] Onset: 5 03-29-2023 Chronic Esophageal disorders (20 sources) Gastroesophageal reflux disease; Translations: [Gastro-esophageal reflux disease without esophagitis] Onset: 4 03-31-2019 Chronic Essential hypertension (20 sources) Essential hypertension; Translations: [Essential (primary) hypertension] Onset: 4 Chronic Fluid and electrolyte disorders (20 sources) Dehydration; Translations: [Dehydration] 08-26-2020 Episodic Genitourinary symptoms and ill-defined conditions (15 sources) Unspecified symptoms and signs involving the genitourinary system; Translations: [Retention of urine] Onset: 4 Episodic Intestinal infection (20 sources) Infection caused by Helicobacter pylori; Translations: [Other specified bacterial intestinal infections] 07-13-2018 Episodic Nausea and vomiting (20 sources) Intractable nausea and vomiting; Translations: [Nausea with vomiting, unspecified] Onset: 4 08-26-2020 Episodic Noninfectious gastroenteritis (20 sources) Gastroenteritis; Translations: [Noninfective gastroenteritis and colitis, unspecified] 08-26-2020 Episodic Nonspecific chest pain (20 sources) Chest pain; Translations: [Chest pain, unspecified] Onset: 5 Episodic Nutritional deficiencies (4 sources) Vitamin D deficiency; Translations: [Vitamin D deficiency, unspecified] Onset: 5 07-15-2014 Chronic Osteoarthritis (20 sources) Primary gonarthrosis, bilateral; Translations: [Bilateral primary osteoarthritis of knee] 03-07-2019 Chronic Osteoporosis (4 sources) Osteoporosis; Translations: [Age-related osteoporosis without current pathological fracture] Onset: 5 07-08-2014 Chronic Other and ill-defined heart disease (20 sources) Diastolic dysfunction; Translations: [Other ill-defined heart diseases] 07-18-2018 Chronic Other connective tissue disease (10 sources) Neuropathic pain; Translations: [Neuralgia and neuritis, unspecified] 05-04-2023 Episodic Other diseases of kidney and ureters (20 sources) Renal impairment; Translations: [Disorder of kidney and ureter, unspecified] 02-07-2022 Episodic Other diseases of kidney and ureters (4 sources) Disorder of kidney and ureter, unspecified; Translations: [Unspecified disorder of kidney and ureter] Episodic Other disorders of stomach and duodenum (20 sources) Gastroparesis syndrome; Translations: [Gastroparesis] 03-31-2019 Episodic Other gastrointestinal disorders (5 sources) Irritable bowel syndrome; Translations: [Irritable bowel syndrome without diarrhea] Onset: 05-20-2015 Chronic Other gastrointestinal disorders (20 sources) Diarrhea; Translations: [Diarrhea, unspecified] 07-13-2018 Episodic Other gastrointestinal disorders (1 source) Altered bowel function; Translations: [Change in bowel habit] 08-14-2023 Episodic Other gastrointestinal disorders (1 source) Mucus in stool; Translations: [Other fecal abnormalities] 08-14-2023 Episodic Other gastrointestinal disorders (1 source) Change in bowel habit; Translations: [Change in bowel habits] Onset: Episodic Other gastrointestinal disorders (11 sources) Abnormal feces; Translations: [Other fecal abnormalities] 06-17-2024 Episodic Other gastrointestinal disorders (5 sources) Finding of abdomen; Translations: [Other specified symptoms and signs involving the digestive system and abdomen] 06-17-2024 Episodic Other injuries and conditions due to external causes (12 sources) Injury of knee; Translations: [Unspecified injury of left lower leg, initial encounter] 08-26-2020 Episodic Other injuries and conditions due to external causes (12 sources) Injury of left knee; Translations: [Unspecified injury of left lower leg, initial encounter] 08-26-2020 Episodic Other nutritional; endocrine; and metabolic disorders (20 sources) Hypomagnesemia; Translations: [Hypomagnesemia] 07-13-2018 Chronic Other screening for suspected conditions (not mental disorders or infectious disease) (20 sources) Cardiovascular stress test abnormal; Translations: [Abnormal result of other cardiovascular function study] Episodic Peripheral and visceral atherosclerosis (20 sources) Peripheral vascular disease, unspecified; Translations: [Peripheral arterial disease] Chronic Septicemia (except in labor) (20 sources) Sepsis; Translations: [Sepsis, unspecified organism] 08-26-2020 Episodic Superficial injury; contusion (20 sources) Contusion of knee; Translations: [Contusion of left knee, initial encounter] 08-26-2020 Episodic Syncope (20 sources) Syncope; Translations: [Syncope and collapse] 07-11-2018 Episodic Viral infection (10 sources) Herpes zoster; Translations: [Zoster without complications] 05-04-2023 Episodic Past or Other Problems Problem Classification Problem Date Documented Da te Episodic/Chronic Abdominal pain (20 sources) Abdominal pain; Translations: [Unspecified abdominal pain] Onset: 12-24-2013 Episodic Nutritional deficiencies (4 sources) Magnesium deficiency; Translations: [Magnesium deficiency] Onset: 02-03-2014 02-03-2014 Episodic Other connective tissue disease (4 sources) Triggering of digit; Translations: [Trigger finger, unspecified middle finger] Onset: 05-20-2015 05-20-2015 Episodic Other gastrointestinal disorders (2 sources) Other fecal abnormalities; Translations: [Mucus in stool] Onset: 08-14-2023 Episodic Other skin disorders (1 source) Bromhidrosis; Translations: [Bromhidrosis] Onset: 06-24-2024 Episodic Unclassified (4 sources) Drug therapy finding; Translations: [DVT prophylaxis] Onset: 12-25-2013 Resolved: 06-29-2014 04-11-2021 Urinary tract infections (20 sources) Lower urinary tract infectious disease; Translations: [Urinary tract infection, site not specified] Onset: 12-25-2013 Resolved: 06-29-2014 07-13-2018 Episodic Results Test Name Value Interpretation Reference Range Facility Basic Metabolic Profile (BMP )on 02-13-2025 BUN Normal 08-02 [facility] Comment on above: Result Comment: Canc elled via OM: Order cancelled - Patient discharged Performed By: #### L 500.2500, L501.2300, L501.5200, L100.0100 #### [facility] [address] [place], [address] BUN/CRE Normal 02-02 [facility] Comment on above: Result Comment: Canc elled via OM: Order cancelled - Patient discharged Performed By: #### L 500.2500, L501.2300, L501.5200, L100.0100 #### [facility] [address] [place], [address] Calcium Normal 7.6-11.0 [facility] Comment on above: Result Comment: Canc elled via OM: Order cancelled - Patient discharged Performed By: #### L 500.2500, L501.2300, L501.5200, L100.0100 #### [facility] [address] [place], [address] CL Normal 98-108 [facility] Comment on above: Result Comment: Canc elled via OM: Order cancelled - Patient discharged Performed By: #### L 500.2500, L501.2300, L501.5200, L100.0100 #### [facility] [address] [place], [address] CO2 Normal 21.0-32.0 [facility] Comment on above: Result Comment: Canc elled via OM: Order cancelled - Patient discharged Performed By: #### L 500.2500, L501.2300, L501.5200, L100.0100 #### [facility] [address] [place], [address] CREAT,SERUM Normal 0.70-1.20 [facility] Comment on above: Result Comment: Canc elled via OM: Order cancelled - Patient discharged Performed By: #### L 500.2500, L501.2300, L501.5200, L100.0100 #### [facility] [address] [place], [address] eGFR Normal >60 [facility] Comment on above: Result Comment: Canc elled via OM: Order cancelled - Patient discharged Performed By: #### L 500.2500, L501.2300, L501.5200, L100.0100 #### [facility] [address] [place], [address] GAP Normal 5-15 [facility] Comment on above: Result Comment: Canc elled via OM: Order cancelled - Patient discharged Performed By: #### L 500.2500, L501.2300, L501.5200, L100.0100 #### [facility] [address] [place], [address] GLU Normal 70-99 [facility] Comment on above: Result Comment: Canc elled via OM: Order cancelled - Patient discharged Performed By: #### L 500.2500, L501.2300, L501.5200, L100.0100 #### [facility] [address] [place], [address] Potassium Normal 3.3-5.1 [facility] Comment on above: Result Comment: Canc elled via OM: Order cancelled - Patient discharged Performed By: #### L 500.2500, L501.2300, L501.5200, L100.0100 #### [facility] [address] [place], [address] Basic Metabolic Profile (BMP) Normal 133-145 [facility] Comment on above: Result Comment: Canc elled via OM: Order cancelled - Patient discharged Performed By: #### L 500.2500, L501.2300, L501.5200, L100.0100 #### [facility] [address] [place], [address] CBC W/Diff, Automatedon 10-3 Absolute Neut Normal 2.0-7.7 [facility] Comment on above: Result Comment: Canc elled via OM: Order cancelled - Patient discharged Performed By: #### L 500.2500, L501.2300, L501.5200, L100.0100 #### [facility] [address] [place], [address] HCT Normal 37-47 [facility] Comment on above: Result Comment: Canc elled via OM: Order cancelled - Patient discharged Performed By: #### L 500.2500, L501.2300, L501.5200, L100.0100 #### [facility] [address] [place], [address] HGB Normal 12.0-15.0 [facility] Comment on above: Result Comment: Canc elled via OM: Order cancelled - Patient discharged Performed By: #### L 500.2500, L501.2300, L501.5200, L100.0100 #### [facility] [address] [place], [address] MCH Normal 27.0-32.0 [facility] Comment on above: Result Comment: Canc elled via OM: Order cancelled - Patient discharged Performed By: #### L 500.2500, L501.2300, L501.5200, L100.0100 #### [facility] [address] [place], [address] MCHC Normal 32-36 [facility] Comment on above: Result Comment: Canc elled via OM: Order cancelled - Patient discharged Performed By: #### L 500.2500, L501.2300, L501.5200, L100.0100 #### [facility] [address] [place], [address] MCV Normal 81-99 [facility] Comment on above: Result Comment: Canc elled via OM: Order cancelled - Patient discharged Performed By: #### L 500.2500, L501.2300, L501.5200, L100.0100 #### [facility] [address] [place], [address] NEUT% Normal 47-70 [facility] Comment on above: Result Comment: Canc elled via OM: Order cancelled - Patient discharged Performed By: #### L 500.2500, L501.2300, L501.5200, L100.0100 #### [facility] [address] [place], [address] PLT Normal 150-450 [facility] Comment on above: Result Comment: Canc elled via OM: Order cancelled - Patient discharged Performed By: #### L 500.2500, L501.2300, L501.5200, L100.0100 #### [facility] [address] [place], [address] RBC Normal 4.2-5.4 [facility] Comment on above: Result Comment: Canc elled via OM: Order cancelled - Patient discharged Performed By: #### L 500.2500, L501.2300, L501.5200, L100.0100 #### [facility] [address] [place], [address] RDW CV Normal 11.6-14.6 [facility] Comment on above: Result Comment: Canc elled via OM: Order cancelled - Patient discharged Performed By: #### L 500.2500, L501.2300, L501.5200, L100.0100 #### [facility] [address] [place], [address] RDW SD Normal 35.1-43.9 [facility] Comment on above: Result Comment: Canc elled via OM: Order cancelled - Patient discharged Performed By: #### L 500.2500, L501.2300, L501.5200, L100.0100 #### [facility] [address] [place], [address] WBC Normal 4.4-11.0 [facility] Comment on above: Result Comment: Canc elled via OM: Order cancelled - Patient discharged Performed By: #### L 500.2500, L501.2300, L501.5200, L100.0100 #### [facility] [address] [place], [address] Basic Metabolic Profile (BMP )on 02-12-2024 BUN/CRE 20.2 RATIO High 02-02 [facility] Comment on above: Performed By: #### L 500.4050, L501.0900 #### [facility] [address] [place], [address] Calcium [Mass/Vol] 8.2 mg/dL Normal 7.6-11.0 [facility] Comment on above: Performed By: #### L 500.4050, L501.0900 #### [facility] [address] [place], [address] Chloride [Moles/Vol] 108 mmol/L Normal 98-108 [facility] Comment on above: Performed By: #### L 500.4050, L501.0900 #### [facility] [address] [place], [address] CO2 [Moles/Vol] 20.9 mmol/L Low 21.0-32.0 [facility] Comment on above: Performed By: #### L 500.4050, L501.0900 #### [facility] [address] [place], [address] Creatinine [Mass/Vol] 1.46 mg/dL High 0.70-1.20 [facility] Comment on above: Performed By: #### L 500.4050, L501.0900 #### [facility] [address] [place], [address] ECRCL 24.74 ml/min Low 50-250 [facility] Comment on above: Performed By: #### L 500.4050, L501.0900 #### [facility] [address] [place], [address] GAP 8 Normal 5-15 [facility] Comment on above: Performed By: #### L 500.4050, L501.0900 #### [facility] [address] [place], [address] GFR/1.73 sq M.predicted among non-blacks MDRD (S/P/Bld) [Vol rate/Area] 37 mL/min/{1.73_m2} Low >60 [facility] Comment on above: Result Comment: mL/m in/1.73m2 CKD-EPI Creatinine Equation (2020) Performed By: #### L 500.4050, L501.0900 #### [facility] [address] [place], [address] Glucose [Mass/Vol] 68 mg/dL Low 70-99 [facility] Comment on above: Performed By: #### L 500.4050, L501.0900 #### [facility] [address] [place], [address] Potassium [Moles/Vol] 3.3 mmol/L Normal 3.3-5.1 [facility] Comment on above: Performed By: #### L 500.4050, L501.0900 #### [facility] [address] [place], [address] Sodium [Moles/Vol] 137 mmol/L Normal 133-145 [facility] Comment on above: Performed By: #### L 500.4050, L501.0900 #### [facility] [address] [place], [address] Urea nitrogen [Mass/Vol] 30 mg/dL High 4-19 [facility] Comment on above: Performed By: #### L 500.4050, L501.0900 #### [facility] [address] [place], [address] Bedside Glucoseon 02-12-2025 FINGERSTICK GLU 115 mg/dL High 74-106 [facility] Comment on above: Result Comment: ZACH GEMENT OF PATIENT CARE PER NURSING PROTOCOL Performed By: #### L 500.4050, L501.0900 #### [facility] [address] [place], [address] FINGERSTICK GLU 64 mg/dL Low 74-106 [facility] Comment on above: Result Comment: ZACH GEMENT OF PATIENT CARE PER NURSING PROTOCOL Performed By: #### L 500.2500, L501.2300, L501.5200, L100.0100 #### [facility] [address] [place], [address] FINGERSTICK GLU 60 mg/dL Low 74-106 [facility] Comment on above: Result Comment: ZACH GEMENT OF PATIENT CARE PER NURSING PROTOCOL Performed By: #### L 500.4050, L501.0900 #### [facility] [address] [place], [address] FINGERSTICK GLU 83 mg/dL Normal 74-106 [facility] Comment on above: Result Comment: ZACH GEMENT OF PATIENT CARE PER NURSING PROTOCOL Performed By: #### L 500.2500, L501.2300, L501.5200, L100.0100 #### [facility] [address] [place], [address] CBC W/Diff, Automatedon 10-3 0-2025 Absolute Lymph 1.06 X10 3/uL Normal 0.83-4.51 [facility] Comment on above: Performed By: #### L 500.4050, L501.0900 #### [facility] [address] [place], [address] Absolute Neut 11.0 X10 3/uL High 2.0-7.7 [facility] Comment on above: Performed By: #### L 500.4050, L501.0900 #### [facility] [address] [place], [address] Basophils/100 WBC (Bld) 0.5 % Normal 0-1 [facility] Comment on above: Performed By: #### L 500.4050, L501.0900 #### [facility] [address] [place], [address] Eosinophils/100 WBC (Bld) 0.3 % Normal 0-5 [facility] Comment on above: Performed By: #### L 500.4050, L501.0900 #### [facility] [address] [place], [address] Erythrocyte distribution width (RBC) [Ratio] 12.9 % Normal 11.6-14.6 [facility] Comment on above: Performed By: #### L 500.4050, L501.0900 #### [facility] [address] [place], [address] Hematocrit (Bld) [Volume fraction] 30.4 % Low 37-47 [facility] Comment on above: Performed By: #### L 500.4050, L501.0900 #### [facility] [address] [place], [address] Hemoglobin (Bld) [Mass/Vol] 10.1 g/dL Low 12.0-15.0 [facility] Comment on above: Performed By: #### L 500.4050, L501.0900 #### [facility] [address] [place], [address] IG% 0.900 Normal 0.0-0.9 [facility] Comment on above: Result Comment: IG% - Immature Granulocytes (promyelocytes, myelocytes and metamyelocytes) > 1% indicates that a LEFT SHIFT is Present. Performed By: #### L 500.4050, L501.0900 #### [facility] [address] [place], [address] Lymphocytes/100 WBC (Bld) 7.7 % Low 19-41 [facility] Comment on above: Performed By: #### L 500.4050, L501.0900 #### [facility] [address] [place], [address] MCH (RBC) [Entitic mass] 30.5 pg Normal 27.0-32.0 [facility] Comment on above: Performed By: #### L 500.4050, L501.0900 #### [facility] [address] [place], [address] MCHC (RBC) [Mass/Vol] 33.2 g/dL Normal 32-36 [facility] Comment on above: Performed By: #### L 500.4050, L501.0900 #### [facility] [address] [place], [address] MCV (RBC) [Entitic vol] 91.8 fL Normal 81-99 [facility] Comment on above: Performed By: #### L 500.4050, L501.0900 #### [facility] [address] [place], [address] Monocytes/100 WBC (Bld) 10.3 % High 0-[address] [facility] Comment on above: Performed By: #### L 500.4050, L501.0900 #### [facility] [address] [place], [address] Neutrophils/100 WBC (Bld) 80.3 % High 47-70 [facility] Comment on above: Performed By: #### L 500.4050, L501.0900 #### [facility] [address] [place], [address] Nucleated RBC (Bld) [#/Vol] 0 10*3/uL Normal 0-5 [facility] Comment on above: Performed By: #### L 500.4050, L501.0900 #### [facility] [address] [place], [address] Platelet mean volume (Bld) [Entitic vol] 11.0 fL Normal 6.2-12.0 [facility] Comment on above: Performed By: #### L 500.4050, L501.0900 #### [facility] [address] [place], [address] Platelets (Bld) [#/Vol] 227 10*3/uL Normal 150-450 [facility] Comment on above: Performed By: #### L 500.4050, L501.0900 #### [facility] [address] [place], [address] RBC (Bld) [#/Vol] 3.31 10*6/uL Low 4.2-5.4 [facility] Comment on above: Performed By: #### L 500.4050, L501.0900 #### [facility] [address] [place], [address] RDW SD 42.9 fl Normal 35.1-43.9 [facility] Comment on above: Performed By: #### L 500.4050, L501.0900 #### [facility] [address] [place], [address] WBC (Bld) [#/Vol] 13.7 10*3/uL High 4.4-11.0 [facility] Comment on above: Performed By: #### L 500.4050, L501.0900 #### [facility] [address] [place], [address] Basic Metabolic Profile (BMP )on 02-11-2025 BUN/CRE 22.1 RATIO High 10- [facility] Comment on above: Performed By: #### L 500.2500, L501.2300, L501.5200, L100.0100 #### [facility] [address] [place], [address] Calcium [Mass/Vol] 9.1 mg/dL Normal 7.6-11.0 [facility] Comment on above: Performed By: #### L 500.2500, L501.2300, L501.5200, L100.0100 #### [facility] [address] [place], [address] Chloride [Moles/Vol] 108 mmol/L Normal 98-108 [facility] Comment on above: Performed By: #### L 500.2500, L501.2300, L501.5200, L100.0100 #### [facility] [address] [place], [address] CO2 [Moles/Vol] 23.0 mmol/L Normal 21.0-32.0 [facility] Comment on above: Performed By: #### L 500.2500, L501.2300, L501.5200, L100.0100 #### [facility] [address] [place], [address] Creatinine [Mass/Vol] 1.55 mg/dL High 0.70-1.20 [facility] Comment on above: Performed By: #### L 500.2500, L501.2300, L501.5200, L100.0100 #### [facility] [address] [place], [address] ECRCL 23.30 ml/min Low 50-250 [facility] Comment on above: Performed By: #### L 500.2500, L501.2300, L501.5200, L100.0100 #### [facility] [address] [place], [address] GAP 10 Normal 5-15 [facility] Comment on above: Performed By: #### L 500.2500, L501.2300, L501.5200, L100.0100 #### [facility] [address] [place], [address] GFR/1.73 sq M.predicted among non-blacks MDRD (S/P/Bld) [Vol rate/Area] 34 mL/min/{1.73_m2} Low >60 [facility] Comment on above: Result Comment: mL/m in/1.73m2 CKD-EPI Creatinine Equation (2020) Performed By: #### L 500.2500, L501.2300, L501.5200, L100.0100 #### [facility] [address] [place], [address] Glucose [Mass/Vol] 89 mg/dL Normal 70-99 [facility] Comment on above: Performed By: #### L 500.2500, L501.2300, L501.5200, L100.0100 #### [facility] [address] [place], [address] Potassium [Moles/Vol] 3.6 mmol/L Normal 3.3-5.1 [facility] Comment on above: Performed By: #### L 500.2500, L501.2300, L501.5200, L100.0100 #### [facility] [address] [place], [address] Sodium [Moles/Vol] 140 mmol/L Normal 133-145 [facility] Comment on above: Performed By: #### L 500.2500, L501.2300, L501.5200, L100.0100 #### [facility] [address] [place], [address] Urea nitrogen [Mass/Vol] 34 mg/dL High 4-19 [facility] Comment on above: Performed By: #### L 500.2500, L501.2300, L501.5200, L100.0100 #### [facility] [address] [place], [address] Bedside Glucoseon 02-11-2025 FINGERSTICK GLU 95 mg/dL Normal 74-106 [facility] Comment on above: Result Comment: ZACH GEMENT OF PATIENT CARE PER NURSING PROTOCOL Performed By: #### L 500.4050, L501.0900 #### [facility] [address] [place], [address] FINGERSTICK GLU 99 mg/dL Normal 74-106 [facility] Comment on above: Result Comment: ZACH GEMENT OF PATIENT CARE PER NURSING PROTOCOL Performed By: #### L 500.2500, L501.2300, L501.5200, L100.0100 #### [facility] [address] [place], [address] FINGERSTICK GLU 84 mg/dL Normal 74-106 [facility] Comment on above: Result Comment: ZACH MARAVILLA OF PATIENT CARE PER NURSING PROTOCOL Performed By: #### L 500.2500, L501.2300, L501.5200, L100.0100 #### [facility] [address] [place], [address] CBC W/Diff, Automatedon 10-2 Absolute Lymph 1.48 X10 3/uL Normal 0.83-4.51 [facility] Comment on above: Performed By: #### L 500.2500, L501.2300, L501.5200, L100.0100 #### [facility] [address] [place], [address] Absolute Neut 18.8 X10 3/uL High 2.0-7.7 [facility] Comment on above: Performed By: #### L 500.2500, L501.2300, L501.5200, L100.0100 #### [facility] [address] [place], [address] Basophils/100 WBC (Bld) 0.4 % Normal 0-1 [facility] Comment on above: Performed By: #### L 500.2500, L501.2300, L501.5200, L100.0100 #### [facility] [address] [place], [address] Eosinophils/100 WBC (Bld) 0.1 % Normal 0-5 [facility] Comment on above: Performed By: #### L 500.2500, L501.2300, L501.5200, L100.0100 #### [facility] [address] [place], [address] Erythrocyte distribution width (RBC) [Ratio] 12.9 % Normal 11.6-14.6 [facility] Comment on above: Performed By: #### L 500.2500, L501.2300, L501.5200, L100.0100 #### [facility] [address] [place], [address] Hematocrit (Bld) [Volume fraction] 34.2 % Low 37-47 [facility] Comment on above: Performed By: #### L 500.2500, L501.2300, L501.5200, L100.0100 #### [facility] [address] [place], [address] Hemoglobin (Bld) [Mass/Vol] 11.5 g/dL Low 12.0-15.0 [facility] Comment on above: Performed By: #### L 500.2500, L501.2300, L501.5200, L100.0100 #### [facility] [address] [place], [address] IG% 0.700 Normal 0.0-0.9 [facility] Comment on above: Result Comment: IG% - Immature Granulocytes (promyelocytes, myelocytes and metamyelocytes) > 1% indicates that a LEFT SHIFT is Present. Performed By: #### L 500.2500, L501.2300, L501.5200, L100.0100 #### [facility] [address] [place], [address] Lymphocytes/100 WBC (Bld) 6.8 % Low 19-41 [facility] Comment on above: Performed By: #### L 500.2500, L501.2300, L501.5200, L100.0100 #### [facility] [address] [place], [address] MCH (RBC) [Entitic mass] 30.5 pg Normal 27.0-32.0 [facility] Comment on above: Performed By: #### L 500.2500, L501.2300, L501.5200, L100.0100 #### [facility] [address] [place], [address] MCHC (RBC) [Mass/Vol] 33.6 g/dL Normal 32-36 [facility] Comment on above: Performed By: #### L 500.2500, L501.2300, L501.5200, L100.0100 #### [facility] [address] [place], [address] MCV (RBC) [Entitic vol] 90.7 fL Normal 81-[address] [facility] Comment on above: Performed By: #### L 500.2500, L501.2300, L501.5200, L100.0100 #### [facility] [address] [place], [address] Monocytes/100 WBC (Bld) 5.7 % Normal 0-[address] [facility] Comment on above: Performed By: #### L 500.2500, L501.2300, L501.5200, L100.0100 #### [facility] [address] [place], [address] Neutrophils/100 WBC (Bld) 86.3 % High 47-70 [facility] Comment on above: Performed By: #### L 500.2500, L501.2300, L501.5200, L100.0100 #### [facility] [address] [place], [address] Nucleated RBC (Bld) [#/Vol] 0 10*3/uL Normal 0-5 [facility] Comment on above: Performed By: #### L 500.2500, L501.2300, L501.5200, L100.0100 #### [facility] [address] [place], [address] Platelet mean volume (Bld) [Entitic vol] 11.2 fL Normal 6.2-12.0 [facility] Comment on above: Performed By: #### L 500.2500, L501.2300, L501.5200, L100.0100 #### [facility] [address] [place], [address] Platelets (Bld) [#/Vol] 272 10*3/uL Normal 150-450 [facility] Comment on above: Performed By: #### L 500.2500, L501.2300, L501.5200, L100.0100 #### [facility] [address] [place], [address] RBC (Bld) [#/Vol] 3.77 10*6/uL Low 4.2-5.4 [facility] Comment on above: Performed By: #### L 500.2500, L501.2300, L501.5200, L100.0100 #### [facility] [address] [place], [address] RDW SD 42.4 fl Normal 35.1-43.9 [facility] Comment on above: Performed By: #### L 500.2500, L501.2300, L501.5200, L100.0100 #### [facility] [address] [place], [address] WBC (Bld) [#/Vol] 21.8 10*3/uL High 4.4-11.0 [facility] Comment on above: Performed By: #### L 500.2500, L501.2300, L501.5200, L100.0100 #### [facility] [address] [place], [address] Magnesiumon 02-11-2025 Magnesium [Mass/Vol] 2.1 mg/dL Normal 1.5-2.2 [facility] Comment on above: Performed By: #### L 500.2500, L501.2300, L501.5200, L100.0100 #### [facility] [address] [place], [address] Phosphoruson 02-11-2025 Phosphate [Mass/Vol] 2.8 mg/dL Normal 2.7-4.5 [facility] Comment on above: Performed By: #### L 500.2500, L501.2300, L501.5200, L100.0100 #### [facility] [address] [place], [address] Bedside Glucoseon 02-10-2025 FINGERSTICK GLU 131 mg/dL High [address] [place] [address] Comment on above: Result Comment: ZACH GEMENT OF PATIENT CARE PER NURSING PROTOCOL Performed By: #### L 500.2500, L501.2300, L501.5200, L100.0100 #### [facility] [address] [place], [address] FINGERSTICK GLU 232 mg/dL High [address] [place] [address] Comment on above: Result Comment: ZACH GEMENT OF PATIENT CARE PER NURSING PROTOCOL Performed By: #### L 500.2500, L501.2300, L501.5200, L100.0100 #### [facility] [address] [place], [address] FINGERSTICK GLU 400 mg/dL High [address] [place] [address] Comment on above: Result Comment: ZACH GEMENT OF PATIENT CARE PER NURSING PROTOCOL Performed By: #### L 500.2500, L501.2300, L501.5200, L100.0100 #### [facility] [address] [place], [address] FINGERSTICK GLU 498 mg/dL Invalid Interpretation Code [address] [place] [address] Comment on above: Result Comment: Dr Michelle britton Followed MANAGEMENT OF PATIENT CARE PER NURSING PROTOCOL Performed By: #### L 500.2500, L501.2300, L501.5200, L100.0100 #### [facility] [address] [place], [address] CBC W/Diff, Automatedon - Absolute Lymph 0.64 X10 3/uL Low 0.83-4.51 [facility] Comment on above: Performed By: #### L 500.2500, L501.2300, L501.5200, L100.0100 #### [facility] [address] [place], [address] Absolute Neut 14.6 X10 3/uL High 2.0-7.7 [facility] Comment on above: Performed By: #### L 500.2500, L501.2300, L501.5200, L100.0100 #### [facility] [address] [place], [address] Basophils/100 WBC (Bld) 0.8 % Normal 0-1 [facility] Comment on above: Performed By: #### L 500.2500, L501.2300, L501.5200, L100.0100 #### [facility] [address] [place], [address] Eosinophils/100 WBC (Bld) 0.0 % Normal 0-5 [facility] Comment on above: Performed By: #### L 500.2500, L501.2300, L501.5200, L100.0100 #### [facility] [address] [place], [address] Erythrocyte distribution width (RBC) [Ratio] 12.5 % Normal 11.6-14.6 [facility] Comment on above: Performed By: #### L 500.2500, L501.2300, L501.5200, L100.0100 #### [facility] [address] [place], [address] Hematocrit (Bld) [Volume fraction] 35.0 % Low 37-47 [facility] Comment on above: Performed By: #### L 500.2500, L501.2300, L501.5200, L100.0100 #### [facility] [address] [place], [address] Hemoglobin (Bld) [Mass/Vol] 12.1 g/dL Normal 12.0-15.0 [facility] Comment on above: Performed By: #### L 500.2500, L501.2300, L501.5200, L100.0100 #### [facility] [address] [place], [address] IG% 1.100 High 0.0-0.9 [facility] Comment on above: Result Comment: IG% - Immature Granulocytes (promyelocytes, myelocytes and metamyelocytes) > 1% indicates that a LEFT SHIFT is Present. Performed By: #### L 500.2500, L501.2300, L501.5200, L100.0100 #### [facility] [address] [place], [address] Lymphocytes/100 WBC (Bld) 4.0 % Low 19-41 [facility] Comment on above: Performed By: #### L 500.2500, L501.2300, L501.5200, L100.0100 #### [facility] [address] [place], [address] MCH (RBC) [Entitic mass] 30.3 pg Normal 27.0-32.0 [facility] Comment on above: Performed By: #### L 500.2500, L501.2300, L501.5200, L100.0100 #### [facility] [address] [place], [address] MCHC (RBC) [Mass/Vol] 34.6 g/dL Normal 32-36 [facility] Comment on above: Performed By: #### L 500.2500, L501.2300, L501.5200, L100.0100 #### [facility] [address] [place], [address] MCV (RBC) [Entitic vol] 87.7 fL Normal 81-99 [facility] Comment on above: Performed By: #### L 500.2500, L501.2300, L501.5200, L100.0100 #### [facility] [address] [place], [address] Monocytes/100 WBC (Bld) 1.7 % Normal 0-10 [facility] Comment on above: Performed By: #### L 500.2500, L501.2300, L501.5200, L100.0100 #### [facility] [address] [place], [address] Neutrophils/100 WBC (Bld) 92.4 % High 47-70 [facility] Comment on above: Performed By: #### L 500.2500, L501.2300, L501.5200, L100.0100 #### [facility] [address] [place], [address] Nucleated RBC (Bld) [#/Vol] 0 10*3/uL Normal 0-5 [facility] Comment on above: Performed By: #### L 500.2500, L501.2300, L501.5200, L100.0100 #### [facility] [address] [place], [address] Platelet mean volume (Bld) [Entitic vol] 11.7 fL Normal 6.2-12.0 [facility] Comment on above: Performed By: #### L 500.2500, L501.2300, L501.5200, L100.0100 #### [facility] [address] [place], [address] Platelets (Bld) [#/Vol] 308 10*3/uL Normal 150-450 [facility] Comment on above: Performed By: #### L 500.2500, L501.2300, L501.5200, L100.0100 #### [facility] [address] [place], [address] RBC (Bld) [#/Vol] 3.99 10*6/uL Low 4.2-5.4 [facility] Comment on above: Performed By: #### L 500.2500, L501.2300, L501.5200, L100.0100 #### [facility] [address] [place], [address] RDW SD 39.9 fl Normal 35.1-43.9 [facility] Comment on above: Performed By: #### L 500.2500, L501.2300, L501.5200, L100.0100 #### [facility] [address] [place], [address] WBC (Bld) [#/Vol] 15.8 10*3/uL High 4.4-11.0 [facility] Comment on above: Performed By: #### L 500.2500, L501.2300, L501.5200, L100.0100 #### [facility] [address] [place], [address] [facility] Albumin [Mass/Vol] 4.2 g/dL Normal 3.4-4.8 [facility] Comment on above: Performed By: #### L 500.2500, L501.2300, L501.5200, L100.0100 #### [facility] [address] [place], [address] Albumin/Globulin [Mass ratio] 1.5 {ratio} Normal 0.9-2.4 [facility] Comment on above: Performed By: #### L 500.2500, L501.2300, L501.5200, L100.0100 #### [facility] [address] [place], [address] ALK PHOS 139 U/L High 35-104 [facility] Comment on above: Performed By: #### L 500.2500, L501.2300, L501.5200, L100.0100 #### [facility] [address] [place], [address] ALT [Catalytic activity/Vol] 12 U/L Normal <=34 [facility] Comment on above: Performed By: #### L 500.2500, L501.2300, L501.5200, L100.0100 #### [facility] [address] [place], [address] AST [Catalytic activity/Vol] 14 U/L Normal <=31 [facility] Comment on above: Performed By: #### L 500.2500, L501.2300, L501.5200, L100.0100 #### [facility] [address] [place], [address] Bilirubin [Mass/Vol] 0.40 mg/dL Normal 0.00-1.30 [facility] Comment on above: Performed By: #### L 500.2500, L501.2300, L501.5200, L100.0100 #### [facility] [address] [place], [address] BUN/CRE 26.7 RATIO High 10-20 [facility] Comment on above: Performed By: #### L 500.2500, L501.2300, L501.5200, L100.0100 #### [facility] [address] [place], [address] Calcium [Mass/Vol] 10.1 mg/dL Normal 7.6-11.0 [facility] Comment on above: Performed By: #### L 500.2500, L501.2300, L501.5200, L100.0100 #### [facility] [address] [place], [address] Chloride [Moles/Vol] 99 mmol/L Normal 98-108 [facility] Comment on above: Performed By: #### L 500.2500, L501.2300, L501.5200, L100.0100 #### [facility] [address] [place], [address] CO2 [Moles/Vol] 21.8 mmol/L Normal 21.0-32.0 [facility] Comment on above: Performed By: #### L 500.2500, L501.2300, L501.5200, L100.0100 #### [facility] [address] [place], [address] Creatinine [Mass/Vol] 1.47 mg/dL High 0.70-1.20 [facility] Comment on above: Performed By: #### L 500.2500, L501.2300, L501.5200, L100.0100 #### [facility] [address] [place], [address] ECRCL 24.57 ml/min Low 50-250 [facility] Comment on above: Performed By: #### L 500.2500, L501.2300, L501.5200, L100.0100 #### [facility] [address] [place], [address] GAP 17 High 5-15 [facility] Comment on above: Performed By: #### L 500.2500, L501.2300, L501.5200, L100.0100 #### [facility] [address] [place], [address] GFR/1.73 sq M.predicted among non-blacks MDRD (S/P/Bld) [Vol rate/Area] 36 mL/min/{1.73_m2} Low >60 [facility] Comment on above: Result Comment: mL/m in/1.73m2 CKD-EPI Creatinine Equation (2020) Performed By: #### L 500.2500, L501.2300, L501.5200, L100.0100 #### [facility] [address] [place], [address] Globulin (S) [Mass/Vol] 2.8 g/dL Normal 2.2-4.[address] [facility] Comment on above: Performed By: #### L 500.2500, L501.2300, L501.5200, L100.0100 #### [facility] [address] [place], [address] Glucose [Mass/Vol] 557 mg/dL Invalid Interpretation Code 70-99 [facility] Comment on above: Result Comment: Crit ical Result(s) Called at:0431 by:??EDILMA HAVEN TO HOLGER TRIMBLE Results read back by same. Performed By: #### L 500.2500, L501.2300, L501.5200, L100.0100 #### [facility] [address] [place], [address] Potassium [Moles/Vol] 4.2 mmol/L Normal 3.3-5.1 [facility] Comment on above: Performed By: #### L 500.2500, L501.2300, L501.5200, L100.0100 #### [facility] [address] [place], [address] Sodium [Moles/Vol] 138 mmol/L Normal 133-145 [facility] Comment on above: Performed By: #### L 500.2500, L501.2300, L501.5200, L100.0100 #### [facility] [address] [place], [address] T PROT 7.1 g/dL Normal 5.9-8.4 [facility] Comment on above: Performed By: #### L 500.2500, L501.2300, L501.5200, L100.0100 #### [facility] [address] [place], [address] Urea nitrogen [Mass/Vol] 39 mg/dL High 4-19 [facility] Comment on above: Performed By: #### L 500.2500, L501.2300, L501.5200, L100.0100 #### [facility] [address] [place], [address] Hemoglobin A1con 02-10-2025 HbA1c (Bld) [Mass fraction] 9.3 % High <=5.6 [facility] Comment on above: Result Comment: Norm al < 5.7 % Prediabetic 5.7 - 6.4 % Diabetic >or= 6.5 % Please note range changes. Performed By: #### L 500.4050, L501.0900 #### [facility] [address] [place], [address] Lipid Profileon 02-10-2025 CHOL:HDL 3.86 Normal [facility] Comment on above: Performed By: #### L 500.4050, L501.0900 #### [facility] [address] [place], [address] Cholesterol [Mass/Vol] 204 mg/dL High <=200 [facility] Comment on above: Result Comment: Chol esterol level, Desirable <200 mg/dL Borderline high cholesterol 200-239 mg/dL High cholesterol >=240 mg/dL Recommendations of the NCEP Adult Treatment Panel for the following risk-cutoff thresholds for the [place] population. Performed By: #### L 500.4050, L501.0900 #### [facility] [address] [place], [address] Cholesterol in HDL [Mass/Vol] 53 mg/dL Normal [facility] Comment on above: Result Comment: Soo onal Cholesterol Education Program (NCEP) guidelines: <40 mg/dL: Low HDL-cholesterol (major risk factor for CHD) >= 60 mg/dL: High HDL-cholesterol (negative risk factor for CHD) HDL-cholesterol is affected by a number of factors, e.g. smoking, exercise, hormones, sex and age. Performed By: #### L 500.4050, L501.0900 #### [facility] [address] [place], [address] Cholesterol in LDL [Mass/Vol] 131 mg/dL Normal [facility] Comment on above: Result Comment: Bord cahyok=403-951 mg/dL Higher Dtep=085 mg/dL or greater Turner Equation 2020 for LDL-C Performed By: #### L 500.4050, L501.0900 #### [facility] [address] [place], [address] Cholesterol in VLDL [Mass/Vol] 22 mg/dL Normal 5-40 [facility] Comment on above: Performed By: #### L 500.4050, L501.0900 #### [facility] [address] [place], [address] Triglyceride [Mass/Vol] 112 mg/dL Normal [facility] Comment on above: Result Comment: The drugs N-Acetylcysteine and Metamizole may falsely depress this assay. Normal range: <150 mg/dL Borderline High: 150-199 mg/dL High: 200-499 mg/dL Very High: >500 mg/dL Performed By: #### L 500.4050, L501.0900 #### [facility] [address] [place], [address] Troponin T HS 4 HRon 02-10- 025 Trop T High Sen 27 ng/L High <=14 [facility] Comment on above: Order Comment: DELAY ED DUE TO ED NOT OBTAINING SPECIMEN BEFORE PT WAS MOVEDTO MS3 Performed By: #### L 500.2500, L501.2300, L501.5200, L100.0100 #### [facility] [address] [place], [address] Basic Metabolic Profile (BMP )on 02-09-2025 BUN/CRE 25.6 RATIO High 10-20 [facility] Comment on above: Performed By: #### L 500.2500, L501.4021, L100.0100 #### [facility] [address] [place], [address] Calcium [Mass/Vol] 10.6 mg/dL Normal 7.6-11.0 [facility] Comment on above: Performed By: #### L 500.2500, L501.4021, L100.0100 #### [facility] [address] [place], [address] Chloride [Moles/Vol] 99 mmol/L Normal 98-108 [facility] Comment on above: Performed By: #### L 500.2500, L501.4021, L100.0100 #### [facility] [address] [place], [address] CO2 [Moles/Vol] 24.2 mmol/L Normal 21.0-32.0 [facility] Comment on above: Performed By: #### L 500.2500, L501.4021, L100.0100 #### [facility] [address] [place], [address] Creatinine [Mass/Vol] 1.58 mg/dL High 0.70-1.20 [facility] Comment on above: Performed By: #### L 500.2500, L501.4021, L100.0100 #### [facility] [address] [place], [address] ECRCL 23.47 ml/min Low 50-250 [facility] Comment on above: Performed By: #### L 500.2500, L501.4021, L100.0100 #### [facility] [address] [place], [address] GAP 15 Normal 5-15 [facility] Comment on above: Performed By: #### L 500.2500, L501.4021, L100.0100 #### [facility] [address] [place], [address] GFR/1.73 sq M.predicted among non-blacks MDRD (S/P/Bld) [Vol rate/Area] 33 mL/min/{1.73_m2} Low >60 [facility] Comment on above: Result Comment: mL/m in/1.73m2 CKD-EPI Creatinine Equation (2020) Performed By: #### L 500.2500, L501.4021, L100.0100 #### [facility] [address] [place], [address] Glucose [Mass/Vol] 337 mg/dL High 70-99 [facility] Comment on above: Performed By: #### L 500.2500, L501.4021, L100.0100 #### [facility] [address] [place], [address] Potassium [Moles/Vol] 4.7 mmol/L Normal 3.3-5.1 [facility] Comment on above: Result Comment: Hemo lysis present, Results??could be affected. ?? Performed By: #### L 500.2500, L501.4021, L100.0100 #### [facility] [address] [place], [address] Sodium [Moles/Vol] 138 mmol/L Normal 133-145 [facility] Comment on above: Performed By: #### L 500.2500, L501.4021, L100.0100 #### [facility] [address] [place], [address] Urea nitrogen [Mass/Vol] 40 mg/dL High 4-19 [facility] Comment on above: Performed By: #### L 500.2500, L501.4021, L100.0100 #### [facility] [address] [place], [address] CBC W/Diff, Automatedon 10-2 Absolute Lymph 2.17 X10 3/uL Normal 0.83-4.51 [facility] Comment on above: Performed By: #### L 500.2500, L501.4021, L100.0100 #### [facility] [address] [place], [address] Absolute Neut 8.6 X10 3/uL High 2.0-7.7 [facility] Comment on above: Performed By: #### L 500.2500, L501.4021, L100.0100 #### [facility] [address] [place], [address] Basophils/100 WBC (Bld) 1.1 % High 0-1 [facility] Comment on above: Performed By: #### L 500.2500, L501.4021, L100.0100 #### [facility] [address] [place], [address] Eosinophils/100 WBC (Bld) 0.9 % Normal 0-5 [facility] Comment on above: Performed By: #### L 500.2500, L501.4021, L100.0100 #### [facility] [address] [place], [address] Erythrocyte distribution width (RBC) [Ratio] 12.4 % Normal 11.6-14.6 [facility] Comment on above: Performed By: #### L 500.2500, L501.4021, L100.0100 #### [facility] [address] [place], [address] Hematocrit (Bld) [Volume fraction] 36.4 % Low 37-47 [facility] Comment on above: Performed By: #### L 500.2500, L501.4021, L100.0100 #### [facility] [address] [place], [address] Hemoglobin (Bld) [Mass/Vol] 13.0 g/dL Normal 12.0-15.0 [facility] Comment on above: Performed By: #### L 500.2500, L501.4021, L100.0100 #### [facility] [address] [place], [address] IG% 0.900 Normal 0.0-0.9 [facility] Comment on above: Result Comment: IG% - Immature Granulocytes (promyelocytes, myelocytes and metamyelocytes) > 1% indicates that a LEFT SHIFT is Present. Performed By: #### L 500.2500, L501.4021, L100.0100 #### [facility] [address] [place], [address] Lymphocytes/100 WBC (Bld) 18.6 % Low 19-41 [facility] Comment on above: Performed By: #### L 500.2500, L501.4021, L100.0100 #### [facility] [address] [place], [address] MCH (RBC) [Entitic mass] 31.3 pg Normal 27.0-32.0 [facility] Comment on above: Performed By: #### L 500.2500, L501.4021, L100.0100 #### [facility] [address] [place], [address] MCHC (RBC) [Mass/Vol] 35.7 g/dL Normal 32-36 [facility] Comment on above: Performed By: #### L 500.2500, L501.4021, L100.0100 #### [facility] [address] [place], [address] MCV (RBC) [Entitic vol] 87.5 fL Normal 81-99 [facility] Comment on above: Performed By: #### L 500.2500, L501.4021, L100.0100 #### [facility] [address] [place], [address] Monocytes/100 WBC (Bld) 4.5 % Normal 0-10 [facility] Comment on above: Performed By: #### L 500.2500, L501.4021, L100.0100 #### [facility] [address] [place], [address] Neutrophils/100 WBC (Bld) 74.0 % High 47-70 [facility] Comment on above: Performed By: #### L 500.2500, L501.4021, L100.0100 #### [facility] [address] [place], [address] Nucleated RBC (Bld) [#/Vol] 0 10*3/uL Normal 0-5 [facility] Comment on above: Performed By: #### L 500.2500, L501.4021, L100.0100 #### [facility] [address] [place], [address] Platelet mean volume (Bld) [Entitic vol] 11.6 fL Normal 6.2-12.0 [facility] Comment on above: Performed By: #### L 500.2500, L501.4021, L100.0100 #### [facility] [address] [place], [address] Platelets (Bld) [#/Vol] 317 10*3/uL Normal 150-450 [facility] Comment on above: Performed By: #### L 500.2500, L501.4021, L100.0100 #### [facility] [address] [place], [address] RBC (Bld) [#/Vol] 4.16 10*6/uL Low 4.2-5.4 [facility] Comment on above: Performed By: #### L 500.2500, L501.4021, L100.0100 #### [facility] [address] [place], [address] RDW SD 39.8 fl Normal 35.1-43.9 [facility] Comment on above: Performed By: #### L 500.2500, L501.4021, L100.0100 #### [facility] [address] [place], [address] WBC (Bld) [#/Vol] 11.7 10*3/uL High 4.4-11.0 [facility] Comment on above: Performed By: #### L 500.2500, L501.4021, L100.0100 #### [facility] [address] [place], [address] CTA Chst, Abd, Pel W and/or WOon 02-09-2025 CTA Chst, Abd, Pel W and/or WO [facility] [address] [place] [address] CTA Chst, Abd, Pel W and/or WO MR#: [id number] Acct: [id number] Name: VALERIANO CROSS Rep #: [id number] : 1945 F 79 From: Logan Zepeda MD PCP: Care Physician,No Primary Status: [facility] ER Study: CTA Chst, Abd, Pel W and/or WO Date of Exam: Exam# [id number] Ordering Dr: Holger Hennessy MD PROCEDURE: CTA CHST, ABD, PEL W AND/OR WO 02/09/2025 REASON FOR EXAM: CHEST PAIN, ABD PAIN, RULE OUT AORTIC TECHNIQUE: CTA CHST, ABD, PEL W AND/OR WO with multiplanar 2D reconstructions, and 3D post processing was performed. One or more dose reduction techniques were used (e.g., Automated exposure control, adjustment of the mA and/or kV according to patient size, use of iterative reconstruction technique. CONTRAST: Isovue 370 VOLUME: 75 mL RADIATION DOSE SUMMARY: DLP: 490.71 mGycm COMPARISON: Abdominal CT 05/03/2023. No other relevant prior exams. FINDINGS: AORTA: Normal in course and caliber. No aneurysm or dissection. Moderate atherosclerotic disease involving the major branch vessels. HEART: Left atrial enlargement. No pericardial effusion. Moderate coronary artery calcifications. No filling defects suspicious for pulmonary arterial emboli. Normal caliber main pulmonary trunk. MEDIASTINUM: Unremarkable. No lymphadenopathy. LUNGS/PLEURA:: Clear. No pneumothorax or pleural effusion. HEPATOBILIARY: Unremarkable. No biliary ductal dilatation. Prior cholecystectomy. GENITOURINARY: Stable small bilateral adrenal benign fatty adenomas. Symmetric renal enhancement. No urolithiasis or hydronephrosis. Unremarkable urinary bladder, uterus and adnexae. GI TRACT: Small hiatal hernia. No evidence of bowel obstruction. Normal appendix. Extensive distal colonic diverticulosis, with subtle pericolonic fat infiltration along the proximal sigmoid colon which may reflect mild acute sigmoid diverticulitis. PERITONEUM/RETROPERIT ONEUM: No free fluid or air. No lymphadenopathy. BONES/SOFT TISSUES: Heterogeneous thyroid with small hypodense nodular lesions. No acute or aggressive osseous abnormality. Mild multilevel degenerative changes of the spine. Chronic compression fracture deformities of T12 and L4. CT/CTA Chst, Abd, Pel W and/or WO IMPRESSION: 1. No aortic aneurysm or dissection. Moderate atherosclerotic disease. 2. No acute intrathoracic abnormality. Clear lungs and pleura. 3. Probable mild uncomplicated sigmoid diverticulitis. 4. Small hiatal hernia. 5. Stable small benign adrenal adenomas. 6. Heterogeneous nodular thyroid gland; may be further assessed with ultrasound. Reading Location: [id number] CC: Dr. Holger Hennessy MD; No Primary Care Physician Nitrating Acid Mixer: Signed Normal [facility] Chest PA and Lateralon 02-09 Chest PA and Lateral [facility] [address] [place] [address] Chest PA and Lateral MR#: [id number] Acct: [id number] Name: VALERIANO CROSS Rep #: [id number] : 1945 F 79 From: Imani Anaya PCP: Care Physician,No Primary Status: [facility] ER Study: Chest PA and Lateral Date of Exam: 02/09/25 Exam# [id number] Ordering Dr: Holger Hennessy MD PROCEDURE: CHEST PA AND LATERAL 02/09/2025 REASON FOR EXAM: CHEST PAIN TECHNIQUE: Procedure Code: RADCXR Modality: DX Procedure: CHEST PA AND LATERAL FINDINGS: No focal consolidation. Bibasilar subsegmental atelectasis no pleural effusion or pneumothorax. Cardiac silhouette is within normal limits. No acute fractures. RAD/Chest PA and Lateral IMPRESSION: No focal consolidations. Reading Location: [id number] CC: Dr. Holger Hennessy MD; No Primary Care Physician Nitrating Acid Mixer: Signed Normal [facility] Emergency Department Summary on 02-09-2025 Emergency Department Summary [facility] Medical Records Department [address] [place] [address] Emergency Department Summary 02/09/25 MR#: [id number] Acct: [id number] Name: VALERIANO CROSS Rep #: [id number] : 1945 79 From: Holger Hennessy MD PCP: Care Physician,No Primary Status:[facility] ER Location: ED HPI History of Present Illness Chief Complaint: Lower Extremity Injury Narrative Narrative: Patient is a 79-year-old female presenting to the emergency department for right hip and leg pain since October or November. Patient has a past medical history of hiatal hernia, diverticulosis, periph eral arterial disease, diabetes, CAD, gastroparesis, GERD, stent placed in coronary artery in 2021, COPD. Patient states that she has had sciatica in the past and this feels similar. She denies any falls or new injuries to the hip. Denies any back pain. She denies any fever or chills. Denies any saddle anesthesia, bowel or bladder incontinence or retention. Denies any weakness or numbness in her legs. Patient states that when she arrived here she developed midsternal chest pain, nausea and vomiting which she states happens when she is in a significant amount of pain. Denies the pain in her chest radiate anywhere. Denies any shortness of breath. [facility] Medical History Abdominal discomfort Acute bronchitis, unspecified Hiatal hernia Diverticulosis PAD (peripheral artery disease) Heart disease Kidney disease Arthritis Presence of stent in coronary artery ( 02/07/22) Old myocardial infarction Atherosclerotic heart disease of [place] coronary artery without angina pectoris NSTEMI (non-ST elevated myocardial infarction) (12/03/13) Essential hypertension Gastroparesis Syncope Diastolic dysfunction Pancreatic atrophy GERD (gastroesophageal reflux disease) Diabetes mellitus type II, uncontrolled COPD (chronic obstructive pulmonary disease) HLD (hyperlipidemia) Home Medications ???Medication ???Instructions ???Recorded ???Last Taken ???Type lisinopril 20 mg tablet 20 mg PO DAILY bp 02/10/15 3 History aspirin 81 mg tablet,delayed 81 mg PO DAILY@0800 pain 02/18/20 07/13/22 History release cholecalciferol (vitamin D3) 50 50 mcg PO DAILY vitamin 12/09/20 U nknown History mcg (2,000 unit) capsule vit 2 tab PO DAILY 06/28/22 Unknown Hi story [id number]-[id number] [id number] 500 mg-50 mg-25 mg-40 mg tablet (Bioflex) vitamin E mixed 400 unit tablet 400 unit PO DAILY 06/28/22 Unknown History finerenone 20 mg tablet (Kerendia) 20 mg PO QDAY 09/30/24 Unknown H istory glipizide 5 mg tablet, extended 5 mg PO BID 09/30/24 Unknown Histo ry release 24 hr metformin 500 mg tablet,extended 500 mg PO Q3-4D 09/30/24 Unknown H istory release 24 hr nitroglycerin 0.4 mg sublingual 0.4 mg sublingual Q5M PRN Chest Unknown Rx tablet Pain #25 tabs amoxicillin 875 mg-potassium 1 tab PO BID 7 days #14 tabs 02/10 Unknown Rx clavulanate 125 mg tablet metoclopramide HCl 5 mg tablet 5 mg PO Q8H PRN nausea and 5 Unknown Rx (Reglan) vomiting #14 tabs Allergy/AdvReac Type Severity Reaction Status Date / Time benzonatate (From Tessalon Allergy lip, Verified 02/09/25 17:59 Jorge) tongue swelling omeprazole (From Prilosec) AdvReac Other Verified 02/09/25 17:59 omeprazole magnesium (From AdvReac Other Verified 02/09/25 17:59 Prilosec) Family History Father Myocardial infarction Sister CAD (coronary artery disease) CABG X 5 Brother CAD (coronary artery disease) Sister Sudden cardiac , Onset Age: 49 Surgical History S/P PTCA (percutaneous transluminal coronary angioplasty) Presence of coronary angioplasty implant and graft (02/07/22) History of tonsillectomy History of cataract extraction History of section History of cholecystectomy ( 2013) Social History Smoking Status: Former smoker how long ago did patient quit smokin years ago alcohol intake: never substance use type: does not use caffeine: No ROS ROS ED ROS Narrative see HPI EXAM Physical Exam Narrative Exam Narrative: Vital signs: Reviewed General: Alert and oriented x 3. No acute distress HEENT: Head is normocephalic and atraumatic, sinuses nontender, pupils equal round and reactive. Nares are patent. Oropharynx and throat exams normal. Neck: Supple without lymphadenopathy nontender Cardiovascular: Regular rate and rhythm, no murmurs. No rubs or gallops. Normal S1 and S2. Radial and DP/PT pulses are 2+ and symmetric throughout. Respiratory: Clear to auscultation bilaterally. No wheezes, rale (more content not included)... Normal [facility] HIP, UNI W/ Pelvis 2-3 Views on 02-09-2025 HIP, UNI W/ Pelvis 2-3 Views [facility] [address] [place] [address] HIP, UNI W/ Pelvis 2-3 Views MR#: [id number] Acct: [id number] Name: VALERIANO CROSS Rep #: [id number] : 1945 F 79 From: Imani Anaya PCP: Care Physician,No Primary Status: REG ER Study: HIP, UNI W/ Pelvis 2-3 Views Date of Exam: Exam# [id number] Ordering Dr: Holger Hennessy MD PROCEDURE: HIP, UNI W/ PELVIS 2-3 VIEWS 02/09/2025 REASON FOR EXAM: PAIN TECHNIQUE: Procedure Code: RADHP Modality: DX Procedure: HIP, UNI W/ PELVIS 2-3 VIEWS Laterality: Right COMPARISON: None RAD/HIP, UNI W/ Pelvis 2-3 Views IMPRESSION: No acute fracture or dislocations. Mild degenerative changes of the bilateral hips No acute soft tissue abnormalities. No radiographic foreign body. Reading Location: [id number] CC: Dr. Holger Hennessy MD; No Primary Care Physician Nitrating Acid Mixer: Signed Normal [facility] L501.4021on 02-09-2025 Trop T High Sen 22 ng/L High <=14 [facility] Comment on above: Result Comment: Hemo lysis present, Results??could be affected. ?? Performed By: #### L 500.2500, L501.4021, L100.0100 #### [facility] [address] [place], [address] Troponin T HS 2 HRon 025 Trop T High Sen 18 ng/L High <=14 [facility] Comment on above: Performed By: #### L 500.2500, L501.2300, L501.5200, L100.0100 #### [facility] [address] [place], [address] Comprehensive Metabolic Prof ilon 01-20-2025 Albumin [Mass/Vol] 4.2 g/dL Normal 3.4-4.8 [facility] Comment on above: Performed By: #### L 500.4050, L501.0900 #### [facility] [address] [place], [address] Albumin/Globulin [Mass ratio] 1.5 {ratio} Normal 0.9-2.4 [facility] Comment on above: Performed By: #### L 500.4050, L501.0900 #### [facility] [address] [place], [address] ALK PHOS 120 U/L High 35-104 [facility] Comment on above: Performed By: #### L 500.4050, L501.0900 #### [facility] [address] [place], [address] ALT [Catalytic activity/Vol] 12 U/L Normal <=34 [facility] Comment on above: Performed By: #### L 500.4050, L501.0900 #### [facility] [address] [place], [address] AST [Catalytic activity/Vol] 19 U/L Normal <=31 [facility] Comment on above: Performed By: #### L 500.4050, L501.0900 #### [facility] [address] [place], [address] Bilirubin [Mass/Vol] 0.37 mg/dL Normal 0.00-1.30 [facility] Comment on above: Performed By: #### L 500.4050, L501.0900 #### [facility] [address] [place], [address] BUN/CRE 26.2 RATIO High 10-20 [facility] Comment on above: Performed By: #### L 500.4050, L501.0900 #### [facility] [address] [place], [address] Calcium [Mass/Vol] 10.8 mg/dL Normal 7.6-11.0 [facility] Comment on above: Performed By: #### L 500.4050, L501.0900 #### [facility] [address] [place], [address] Chloride [Moles/Vol] 100 mmol/L Normal 98-108 [facility] Comment on above: Performed By: #### L 500.4050, L501.0900 #### [facility] [address] [place], [address] CO2 [Moles/Vol] 23.9 mmol/L Normal 21.0-32.0 [facility] Comment on above: Performed By: #### L 500.4050, L501.0900 #### [facility] [address] [place], [address] Creatinine [Mass/Vol] 1.27 mg/dL High 0.70-1.20 [facility] Comment on above: Performed By: #### L 500.4050, L501.0900 #### [facility] [address] [place], [address] GAP 12 Normal 5-15 [facility] Comment on above: Performed By: #### L 500.4050, L501.0900 #### [facility] [address] [place], [address] GFR/1.73 sq M.predicted among non-blacks MDRD (S/P/Bld) [Vol rate/Area] 43 mL/min/{1.73_m2} Low >60 [facility] Comment on above: Result Comment: mL/m in/1.73m2 CKD-EPI Creatinine Equation (2020) Performed By: #### L 500.4050, L501.0900 #### [facility] [address] [place], [address] Globulin (S) [Mass/Vol] 2.8 g/dL Normal 2.2-4.[address] [facility] Comment on above: Performed By: #### L 500.4050, L501.0900 #### [facility] [address] [place], [address] Glucose [Mass/Vol] 143 mg/dL High 70-99 [facility] Comment on above: Performed By: #### L 500.4050, L501.0900 #### [facility] [address] [place], [address] Potassium [Moles/Vol] 4.7 mmol/L Normal 3.3-5.1 [facility] Comment on above: Performed By: #### L 500.4050, L501.0900 #### [facility] [address] [place], [address] Sodium [Moles/Vol] 135 mmol/L Normal 133-145 [facility] Comment on above: Performed By: #### L 500.4050, L501.0900 #### [facility] [address] [place], [address] T PROT 7.0 g/dL Normal 5.9-8.4 [facility] Comment on above: Performed By: #### L 500.4050, L501.0900 #### [facility] [address] [place], [address] Urea nitrogen [Mass/Vol] 33 mg/dL High 4-19 [facility] Comment on above: Performed By: #### L 500.4050, L501.0900 #### [facility] [address] [place], [address] Microalb:Creat Ratio,Random URon 01-20-2025 MALB:CREAT Normal <30 mg/g CRE [facility] Comment on above: Order Comment: Order Date: 10/22/24 Order Info: [id number] - MIALB Result Comment: DIDN T NEED Performed By: #### L 502.0250 #### [facility] [address] [place], [address] MICROALBUMIN,UR Normal <20 mg/L [facility] Comment on above: Order Comment: Order Date: 10/22/24 Order Info: [id number] - MIALB Result Comment: DIDN T NEED Performed By: #### L 502.0250 #### [facility] [address] [place], [address] UR CREAT Normal 28.00-217.00 [facility] Comment on above: Order Comment: Order Date: 10/22/24 Order Info: [id number] - MIALB Result Comment: DIDN T NEED Performed By: #### L 502.0250 #### [facility] [address] [place], [address] Protein+Creatinine Ratio,Uri neon 01-20-2025 PROT:CRE RATIO 1593 mg/g CRE High 0-200 [facility] Comment on above: Performed By: #### L 500.4050, L501.0900 #### [facility] [address] [place], [address] Protein (U) [Mass/Vol] 98.0 mg/dL High 0.0-12.0 [facility] Comment on above: Performed By: #### L 500.4050, L501.0900 #### [facility] [address] [place], [address] UR CREAT 61.50 mg/dL Normal 28.00-217.00 [facility] Comment on above: Performed By: #### L 500.4050, L501.0900 #### [facility] [address] [place], [address] Cardiology Visit Reporton Cardiology Visit Report [facility] [address] [place] [address] OFFICE VISIT Date of Service: 09/30/24 MR#: [id number] Acct: [id number] Name: VALERIANO CROSS Rep #: [id number] : 1945 Provider: STAN gomes Age/Sex: 79/F [place] [facility] [place] Status: Signed HPI HPI History of Present Illness Details: Valeriano Cross is a 79-year-old white female who presents for an outpatient cardiovascular follow-up visit with a history of CAD with CLEMENT to mid LAD and CLEMENT to proximal RCA in June 2013 and 09/2020 and a PCI to the LCX in 2021, syncope in June 2018, diastolic dysfunction, hyperlipidemia, and hypertension. She is a previous smoker who quit in 1991. She had heart catheterization in June 2022 after an abnormal stress test that showed diffuse coronary artery disease status post LAD and right coronary artery stenting with diffuse disease noted in the obtuse marginal branch vessels and distal right coronary artery and distal LAD. Medical therapy was recommended. She acknowledges midsternal chest squeezing sensation. This is short lasting and occurs at rest. She has taken 1 nitroglycerin for such pain. She denies this pain with activity. She acknowledges palpitations described as pounding and at times associated with shortness of breath. She denies bilateral lower extremity edema or claudication. She acknowledges shortness of breath with activity that she attributes to COPD history. She denies shortness of breath at rest, cough, orthopnea, or PND. She acknowledges occasional lightheadedness. She denies dizziness, near-syncope, or syncope. She denies fatigue. Intake Vital Signs 12/04/23 12:54 09/30/24 13:40 Height 4 ft 11 in 4 ft 11 in Weight: 137 lb BMI 27.6 BP 118/72 Blood Pressure Location Lt brachial Position Sitting Respiration 16 Pulse 82 Pulse Source NIBP Intake Visit Reasons: 1 Y FU/MOVED FROM [facility] Malt Loader Required: No Accompanied by: Is patient in pain?: No Allergies benzonatate (From ZIRX) Allergy (Verified 09/30/24 14:13) lip, tongue swelling omeprazole (From Prilosec) Adverse Reaction (Verified 09/30/24 14:13) Other omeprazole magnesium (From Prilosec) Adverse Reaction (Verified 09/30/24 14:13) Other Medications ???Medication ???Instructions ???Recorded ???Confirmed ???Type lisinopril 20 mg tablet 20 mg PO DAILY bp 02/10/15 5 History aspirin 81 mg tablet,delayed 81 mg PO DAILY@0800 pain 02/18/20 09/30/24 History release cholecalciferol (vitamin D3) 50 50 mcg PO DAILY vitamin 12/09/20 0 09/30/24 History mcg (2,000 unit) capsule vit 2 tab PO DAILY 06/28/22 09/30/24 H istory E-[id number] [id number] 500 mg-50 mg-25 mg-40 mg tablet (Bioflex) vitamin E mixed 400 unit tablet 400 unit PO DAILY 06/28/22 5 History finerenone 20 mg tablet (Kerendia) 20 mg PO QDAY 09/30/24 09/30/24 History glipizide 5 mg tablet, extended 5 mg PO BID 09/30/24 09/30/24 Hist ory release 24 hr metformin 500 mg tablet,extended 500 mg PO Q3-4D 09/30/24 09/30/24 History release 24 hr nitroglycerin 0.4 mg sublingual 0.4 mg sublingual Q5M PRN Chest 09/30/24 Rx tablet Pain #25 tabs Ejection fraction %: 60 Have you fallen in the past year?: No Nurse's Note: Is finishing currently supply of Zetia, then stopping. Needs new Rx for nitroglycerin [facility] Medical History Abdominal discomfort Acute bronchitis, unspecified Hiatal hernia Diverticulosis PAD (peripheral artery disease) Heart disease Kidney disease Arthritis Presence of stent in coronary artery ( 02/07/22) Old myocardial infarction Atherosclerotic heart disease of [place] coronary artery without angina pectoris NSTEMI (non-ST elevated myocardial infarction) (12/03/13) Essential hypertension Gastroparesis Syncope Diastolic dysfunction Pancreatic atrophy GERD (gastroesophageal reflux disease) Diabetes mellitus type II, uncontrolled COPD (chronic obstructive pulmonary disease) HLD (hyperlipidemia) Surgical History S/P PTCA (percutaneous transluminal coronary angioplasty) Presence of coronary angioplasty implant and graft (02/07/22) History of tonsillectomy History of cataract extraction History of section History of cholecystectomy ( 2013) Family History Father Myocardial infarction Sister CAD (coronary artery disease) CABG X 5 Brother CAD (coronary artery disease) Sister Sudden cardiac , Onset Age: 49 Social History Smoking Status: Former smoker how long ago did patient quit smokin years ago alcohol intake: never substan (more content not included)... Normal [facility] Kidney and Bladderon 025 Kidney and Bladder [facility] [address] [place] [id number] Kidney and Bladder MR#: [id number] Acct: [id number] Name: VALERIANO CROSS Rep #: [id number] : 1945 F 78 From: Paul Car MD PCP: Dr. Katt aRmsay MD Status: REG CLI Study: Kidney and Bladder Date of Exam: 08/26/24 Exam# [id number] Ordering Dr: Christel Moncada MD PROCEDURE: KIDNEY AND BLADDER 08/26/2024 REASON FOR EXAM: UTI TECHNIQUE: Ultrasound imaging of kidneys and bladder. FINDINGS: The right kidney measures 9.9 x 5 x 4.9 cm with a cortical thickness of 1.3 cm. The left kidney measures 10.6 x 4.3 x 4.8 cm with a cortical thickness of 1.6 cm. The kidneys appear within limits for echogenicity without hydronephrosis, renal stone or perinephric edema seen. Suggestion of an extrarenal pelvis noted on the right, incidental. Medial inferior left renal cyst measuring 1.4 x 1.2 x 1.2 cm. Bladder volume 215 cc. Bladder appears within limits. Wall measures 2 mm. The distal ureters are not visualized. Bilateral ureteral jets are noted during imaging. Postvoid bladder volume 22 cc. US/Kidney and Bladder IMPRESSION: Study appears within limits as above. Reading Location: [facility] CC: Dr. Katt Ramsay MD; Dr. Christel Moncada MD Nitrating Acid Mixer: Signed Normal [facility] Gastroenterology Visit Repor ton 07-22-2024 Gastroenterology Visit Report [facility] [address] [place] [address] OFFICE VISIT Date of Service: 07/22/24 MR#: [id number] Acct: [id number] Name: VALERIANO CROSS Rep #: [id number] : 1945 Provider: CITLALY Prado Age/Sex: 78/F [place] [facility] [place]: Signed Intake Vital Signs 12/04/23 12:54 Height 4 ft 11 in Intake Visit Reasons: 3 M FU Chief Complaint: bloating Allergies benzonatate (From Tessalon Perles) Allergy (Verified 06/24/24 12:30) lip, tongue swelling omeprazole (From Prilosec) Adverse Reaction (Verified 06/24/24 12:30) Other omeprazole magnesium (From Prilosec) Adverse Reaction (Verified 06/24/24 12:30) Other Have you fallen in the past year?: No Nurse's Note: OV 07.22.24 Pt here for f/u and reports n/v, abdominal pain, gas, bloating, and indigestion. Pt had gallbladder removed. Pt reports she is not feeling well all month. 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 NSTEMI (non-ST elevated myocardial infarction) (12/03/13) Essential hypertension Gastroparesis Syncope Diastolic dysfunction Pancreatic atrophy GERD (gastroesophageal reflux disease) Diabetes mellitus type II, uncontrolled COPD (chronic obstructive pulmonary disease) HLD (hyperlipidemia) Surgical History S/P PTCA (percutaneous transluminal coronary angioplasty) Presence of coronary angioplasty implant and graft (02/07/22) History of tonsillectomy History of cataract extraction History of section History of cholecystectomy ( 2013) Family History Father Myocardial infarction Sister CAD (coronary artery disease) CABG X 5 Brother CAD (coronary artery disease) Sister Sudden cardiac , Onset Age: 49 Social History Smoking Status: Former smoker how long ago did patient quit smokin years ago alcohol intake: never substance use type: does not use caffeine: No HPI HPI Chief Complaint: bloating Details: VALERIANO CROSS, is a 78 F who presents to the office today for f/u. BGI established 3.4.35 with complaints of sharp abd pain and heartburn. Last colonoscopy and EGD one years ago. Takes Metamucil and senna as needed. Hx of gastroparesis in 2024. Stool 07.01.24: c. diff PCR +, c.diff toxin negative, c.diff antigen negative, lactoferrin negative, O P negative, calprotectin wnl, elastase wnl. CMP 07.11.24: BUN H, Creatinine 1.43 H, Glucose H 230, alk phos 116 H, CBC 335: RBC L, WBC wnl, hemoglobin wnl, OV 4.8.25; Pt has had continued bloating and intermittent abd pain. She is having small bm daily. She is not taking daily fiber supplement. ROS Const Constitutional: Positive for fatigue; No fever(s) or weight change ENT ENT: No difficulty swallowing Cardio Cardiology: Positive for leg pain with exertion Gastro GI: Positive for abdominal pain, bloating, heartburn, excessive flatus, nausea/dyspepsia and vomiting; No belching, change in bowel habits, change in stool character, coffee ground emesis, constipation, cramping, diarrhea, difficulty swallowing, feeling full early, incontinent of stools, Vomiting blood/hematemesis, Blood in stool, loose stools, Black,tarry stools, pain with swallowing or other Musc Musculoskeletal: Positive for joint pain, joint swelling, muscle cramps, muscle weakness, numbness, tingling, Arthritis, restless legs, leg pain at night and leg pain with exertion Skin Skin: Positive for dry skin and itchy eyes; No yellowing of the eye Neuro Neurology: Positive for numbness, tingling and restless legs Psych Psychiatric: No anxiety and No depression Endo Endocrine: Positive for fatigue; No weight change Aller/Imm Allergy/Immunologic: Positive for itchy eyes Wei/Lymp Hematologic/Lymphatic : Positive for easy bruising; No easy bleeding Exam Const General: cooperative and comfortable Nutritional Appearance: average body habitus and well nourished [facility] Head: normal to inspection Ears: hearing grossly normal bilaterally Nose: external nose normal Face and sinus: normal facial exam Eyes General: appearance normal, both eyes and all related structures Neck Neck: normal visual inspection Chest Chest palpation inspection: normal inspection of the chest and normal palpation of entire chest wall Resp Effort Inspection: normal (more content not included)... Normal [facility] Anion gap in Serum or Plasma Ordered By: David Medina on 07-18-2024 Anion gap [Moles/Vol] 9 mmol/L 5-15 [facility] BUN/creatinine ratioOrdered By: David Medina on 07-18-2024 Urea nitrogen/Creatinine [Mass ratio] 23.9 mg/mg High 10-20 [facility] Carbon dioxide, total [Moles /volume] in Central venous bloodOrdered By: David Medina on 07-18-2024 CO2 [Moles/Vol] 21.6 mmol/L 21.0-32.0 [facility] Chloride assayOrdered By: Christian Medina on 07-18-2024 Chloride [Moles/Vol] 102 mmol/L 98-108 [facility] Creatinine Unsp time (U) [Ma ss/Vol]Ordered By: David Medina on 07-18-2024 Creatinine (U) [Mass/Vol] 67.10 mg/dL 28.00-217.00 [facility] GFR/1.73 sq M.predicted shaheen g non-blacks MDRD (S/P/Bld) [Vol rate/Area]Ordered By: David Medina on 07-18-2024 Estimated GFR (MDRD) Non-Af Amer 37 Low >60 [facility] Comment on above: mL/min/1.73m2 CKD-EP I Creatinine Equation (2020) Glomerular filtration rate ( GFR) estimation/1.73 sq m using serum, plasma, or whole bOrdered By: David Medina on 07-18-2024 GFR/1.73 sq M.predicted among non-blacks MDRD (S/P/Bld) [Vol rate/Area] 37 mL/min/{1.73_m2} Low >60 [facility] Comment on above: mL/min/1.73m2 CKD-EP I Creatinine Equation (2020) PTH intactOrdered By: Kei Medina on 07-18-2024 Parathyroid Hormone (Intact) 107 pg/mL High [facility] PTHINon 07-18-2024 PTH 107 pg/mL High [facility] Comment on above: Performed By: #### L 502.0250 #### [facility] [place], [address] Potassium (Unsp spec) [Mass/ Vol]Ordered By: David Medina on 07-18-2024 Potassium [Moles/Vol] 5.5 mmol/L High 3.3-5.1 [facility] Potassium measurement (mass/ volume)Ordered By: David Medina on 07-18-2024 Potassium (Unsp spec) [Mass/Vol] 5.5 mmol/L High 3.3-5.1 [facility] Protein+Creatinine Ratio,Uri neon 07-18-2024 PROT:CRE RATIO 692 mg/g CRE High 0-200 [facility] Comment on above: Performed By: #### L 502.0250 #### [facility] [address] [place], [address] Protein (U) [Mass/Vol] 46.4 mg/dL High 0.0-12.0 [facility] Comment on above: Performed By: #### L 502.0250 #### [facility] [address] [place], [address] UR CREAT 67.10 mg/dL Normal 28.00-217.00 [facility] Comment on above: Performed By: #### L 502.0250 #### [facility] [address] [place], [address] Protein/Creatinine (U) [Mass ratio]Ordered By: David Medina on 07-18-2024 Urine Protein/Creatinine Ratio 692 mg/g CRE High 0-200 [facility] Random urine creatinine francie urement (mass/volume)Ordered By: David Medina on 07-18-2024 Creatinine Unsp time (U) [Mass/Vol] 67.10 mg/dL 28.00-217.00 [facility] Renal Profileon 07-18-2024 Albumin [Mass/Vol] 4.0 g/dL Normal 3.4-4.8 [facility] Comment on above: Performed By: #### L 502.0250 #### [facility] [address] [place], [address] BUN/CRE 23.9 RATIO High 10-20 [facility] Comment on above: Performed By: #### L 502.0250 #### [facility] [address] [place], [address] Calcium [Mass/Vol] 9.9 mg/dL Normal 7.6-11.0 [facility] Comment on above: Performed By: #### L 502.0250 #### [facility] [address] [place], [address] Chloride [Moles/Vol] 102 mmol/L Normal 98-108 [facility] Comment on above: Performed By: #### L 502.0250 #### [facility] [address] [place], [address] CO2 [Moles/Vol] 21.6 mmol/L Normal 21.0-32.0 [facility] Comment on above: Performed By: #### L 502.0250 #### [facility] [address] [place], [address] Creatinine [Mass/Vol] 1.44 mg/dL High 0.70-1.20 [facility] Comment on above: Performed By: #### L 502.0250 #### [facility] [address] [place], [address] GAP 9 Normal 5-15 [facility] Comment on above: Performed By: #### L 502.0250 #### [facility] [address] [place], [address] GFR/1.73 sq M.predicted among non-blacks MDRD (S/P/Bld) [Vol rate/Area] 37 mL/min/{1.73_m2} Low >60 [facility] Comment on above: Result Comment: mL/m in/1.73m2 CKD-EPI Creatinine Equation (2020) Performed By: #### L 502.0250 #### [facility] [address] [place], [address] Glucose [Mass/Vol] 193 mg/dL High 70-99 [facility] Comment on above: Performed By: #### L 502.0250 #### [facility] [address] [place], [address] Phosphate [Mass/Vol] 2.7 mg/dL Normal 2.7-4.5 [facility] Comment on above: Performed By: #### L 502.0250 #### [facility] [address] [place], [address] Potassium [Moles/Vol] 5.5 mmol/L High 3.3-5.1 [facility] Comment on above: Performed By: #### L 502.0250 #### [facility] [address] [place], [address] Sodium [Moles/Vol] 132 mmol/L Low 133-145 [facility] Comment on above: Performed By: #### L 502.0250 #### [facility] [address] [place], [address] Urea nitrogen [Mass/Vol] 34 mg/dL High 4-19 [facility] Comment on above: Performed By: #### L 502.0250 #### [facility] [address] [place], [address] Serum creatinine measurement (mass/volume)Ordered By: David Medina on 07-18-2024 Creatinine [Mass/Vol] 1.44 mg/dL High 0.70-1.20 [facility] Serum glucose measurement (m ass/volume)Ordered By: David Medina on 07-18-2024 Glucose [Mass/Vol] 193 mg/dL High 70-99 [facility] Serum or plasma albumin francie urement (mass/volume)Ordered By: David Medina on 07-18-2024 Albumin [Mass/Vol] 4.0 g/dL 3.4-4.8 [facility] Serum or plasma calcium francie urement (mass/volume)Ordered By: David Medina on 07-18-2024 Calcium [Mass/Vol] 9.9 mg/dL 7.6-11.0 [facility] Serum or plasma urea nitroge n measurement (mass/volume)Ordered By: David Medina on 07-18-2024 Urea nitrogen [Mass/Vol] 34 mg/dL High 4-19 [facility] Serum phosphorus measurement Ordered By: David Medina on 07-18-2024 Phosphorus Level 2.7 mg/dL 2.7-4.5 [facility] Sodium levelOrdered By: Jose Miguel Medina on 07-18-2024 Sodium [Moles/Vol] 132 mmol/L Low 133-145 [facility] Urine protein measurement (m ass/volume)Ordered By: David Medina on 07-18-2024 Protein (U) [Mass/Vol] 46.4 mg/dL High 0.0-12.0 [facility] Urine protein/creatinine mas s ratioOrdered By: David Medina on 07-18-2024 Protein/Creatinine (U) [Mass ratio] 692 mg/g CRE High 0-200 [facility] Vitamin D, 25-hydroxyOrdered By: David Medina on 07-18-2024 Vitamin D 25-Hydroxy 20.3 ng/mL Low 30-100 [facility] Comment on above: Vitamin D StatusDefi ciency: <20 ng/mL (50nmol/L)Insufficiency: 20-30 ng/mL (50-75 nmol/L)Sufficiency: 30-100 ng/mL (75-250 nmol/L)Toxicity: >100 ng/mL (>250 nmol/L) Vitamin D,25 Hydroxyon 07-18 Vitamin D 25-OH 20.3 ng/mL Low 30-100 [facility] Comment on above: Result Comment: Toña min D Status Deficiency: <20 ng/mL (50nmol/L) Insufficiency: 20-30 ng/mL (50-75 nmol/L) Sufficiency: 30-100 ng/mL (75-250 nmol/L) Toxicity: >100 ng/mL (>250 nmol/L) Performed By: #### L 500.2500, L501.2300, L501.5200, L100.0100 #### [facility] [address] [place], [address] Calprotectin, Stoolon [address] 38 ug/g Normal 0-120 [facility] Comment on above: Result Comment: Conc entration Interpretation Follow-Up < 5 - 50 ug/g Normal None >50 -120 ug/g Borderline Re-evaluate in 4-6 weeks >120 ug/g Abnormal Repeat as clinically indicated Performed at: [place] [id number] Chalk Machine Operator: Sana Jo MD, Phone: [phone] Performed By: #### L 502.0250 #### [facility] [address] [facility] [place], [address] L7000.0750on 07-03-2024 P ELASTASE,FECA 454 Normal >200 [facility] Comment on above: Result Comment: Resu lt Units: ug Elast./g Severe Pancreatic Insufficiency: <100 Moderate Pancreatic Insufficiency: 100 - 200 Normal: >200 Performed at: [address] [id number] [employer] Operator: Sana Jo MD, Phone: [phone] Performed By: #### L 502.0250 #### [facility] [address] [facility] [place], [address] Ova and Parasites 8623on OP OVA AND PARASITES EXAM, ROUTINE These results were obtained using wet preparation(s) and trichrome stained smear. This test does not include testing for Crytosporidium parvum, Cyclospora, or Microsporidia. One negative specimen does not rule out the possibility of a parasitic infection. TESTING PERFORMED AT [facility]. ORIGINAL REPORT ON FILE IN LAB CONTAINS ADDITIONAL TEST SITE INFORMATION. Ova/Parasite Exam NO OVA, CYSTS, OR PARASITES FOUND. Normal [facility] Comment on above: Performed By: #### L 502.0250 #### [facility] [address] [facility] [place], [address] C. difficile DNA JEFFREY+probe Q l (Unsp spec)Ordered By: Talya Gee on 07-01-2024 Clostridioides difficile (PCR) [facility] C. difficile Ql (Stl)Ordered By: Talya Gee on 07-01-2024 C. difficile GDH Antigen & Toxins [facility] CDIFF (PCR)on 07-01-2024 CDIFF A positive C. difficile molecular test does not differentiate between an active C. difficile infection and C. difficile colonization. Use clinical judgement and paired toxin/antigen testing to identify true infection and need for treatment. C diff DNA Spec Ql JEFFREY+probe Reference Range: Negative Cepheid GeneXpert: polymerase chain reaction (PCR) 027 027 [id number] Presumptive Negative *for epidemiolologic???use C. Diff PCR A Positive-Toxigenic C. Difficile Detected A Normal [facility] Comment on above: Performed By: #### L 502.0250 #### [facility] [address] [facility] [address] [place], [place], [id number] Calprotectin stoolOrdered By : Talya Gee on 07-01-2024 Calprotectin stool 38 ug/g 0-120 [facility] Comment on above: Concentration Interp retation Follow-Up< 5 - 50 ug/g Normal None>50 -120 ug/g Borderline Re-evaluate in 4-6 weeks >120 ug/g Abnormal Repeat as clinically indicatedPerformed at: [facility] - Lab[address] [id number] Director: Sana Jo MD, Phone: [phone] Stool Calprotectin 38 ug/g 0-120 [facility] Comment on above: Concentration Interp retation Follow-Up< 5 - 50 ug/g Normal None>50 -120 ug/g Borderline Re-evaluate in 4-6 weeks >120 ug/g Abnormal Repeat as clinically indicatedPerformed at: [address] [id number] Director: Sana Jo MD, Phone: [phone] Clostridium Diff Toxin/Agon 07-01-2024 CDIFF (EIA) Interpretation of C. diff by EIA Method C diff Stl Ql C diff Stl Ql C diff Stl Ql C diff Stl Ql Negative for toxigenic C. difficile, or below limit of detection. C. difficile Antigen Negative C. diff A/B Antigen C. difficile Toxin Negative C. diff Toxin Normal [facility] Comment on above: Performed By: #### L 502.0250 #### [facility] [address] [place] [address], [address] Clostridium difficile detect ion by polymerase chain reactionOrdered By: Talya Gee on 07-01-2024 C. difficile DNA JEFFREY+probe Ql (Unsp spec) [facility] Elastase.pancreatic (Stl) [M ass/Mass]Ordered By: Talya Gee on 07-01-2024 Stool Pancreatic Elastase 454 >200 [facility] Comment on above: Result Units: ug Eugenie st./g Severe Pancreatic Insufficiency: <100 Moderate Pancreatic Insufficiency: 100 - 200 Normal: >200Performed at: [address] [id number] Director: Sana Jo MD, Phone: [phone] Lactoferrin IA Ql (Stl)Order ed By: Talya Gee on 07-01-2024 Stool Lactoferrin [facility] Ova and parasitesOrdered By: Talya Gee on 07-01-2024 Ova and Parasites [facility] Stool Clostridium difficile detectionOrdered By: Talya Gee on 07-01-2024 C. difficile Ql (Stl) [facility] Stool Lactoferrin/WBCon - WBCST Normal Reference Range = Negative Fecal WBC Lactoferrin Negative: No Fecal WBC Lactoferrin present Normal [facility] Comment on above: Performed By: #### L 502.0250 #### [facility] [address] [place], [address] Stool lactoferrin detection by immunoassayOrdered By: Talya Gee on 07-01-2024 Lactoferrin IA Ql (Stl) [facility] Stool pancreatic elastase me asurement (mass/mass)Ordered By: Talya Gee on 07-01-2024 Elastase.pancreatic (Stl) [Mass/Mass] 454 >200 [facility] Comment on above: Result Units: ug Eugenie st./g Severe Pancreatic Insufficiency: <100 Moderate Pancreatic Insufficiency: 100 - 200 Normal: >200Performed at: [facility] [address] [id number] Director: Sana Jo MD, Phone: [phone] Urgent Care Visit Reporton 0 06-24-2024 Urgent Care Visit Report [facility] [address] [facility], [address] [place], [place] [address] OFFICE VISIT Date of Service: 06/24/24 MR#: [id number] Acct: [id number] Name: VALERIANO CROSS Rep #: [id number] : 1945 Provider: CITLALY Tellez Age/Sex: 78/F Location: [facility] Status: Signed Intake Vital Signs 12/04/23 12:54 06/24/24 12:29 Height 4 ft 11 in BP 108/68 Blood Pressure Location Lt brachial Position Sitting Respiration 17 Pulse 83 Pulse Source NIBP Temp 98.3 F Temp Source Oral Pulse Oximetry (%) 94 Oxygen Delivery Method room air Intake Visit Reasons: COUGH, STOMACH PAIN, DIZZY Chief Complaint: cough, dizzy, constipation Malt Loader Required: No Is patient in pain?: No Allergies benzonatate (From Tessalon Perles) Allergy (Verified 06/24/24 12:30) lip, tongue swelling omeprazole (From Prilosec) Adverse Reaction (Verified 06/24/24 12:30) Other omeprazole magnesium (From Prilosec) Adverse Reaction (Verified 06/24/24 12:30) Other Is last menstrual period known: No Post menopausal: Yes Patient : No Have you fallen in the past year?: No Nurse's Note: off balance, dry cough, constipation x [address], MAGA[place], BA, fever, urinary complaints, ear pain, drainage. 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 NSTEMI (non-ST elevated myocardial infarction) (12/03/13) Essential hypertension Gastroparesis Syncope Diastolic dysfunction Pancreatic atrophy GERD (gastroesophageal reflux disease) Diabetes mellitus type II, uncontrolled COPD (chronic obstructive pulmonary disease) HLD (hyperlipidemia) Surgical History S/P PTCA (percutaneous transluminal coronary angioplasty) Presence of coronary angioplasty implant and graft (02/07/22) History of tonsillectomy History of cataract extraction History of section History of cholecystectomy ( 2013) Family History Father Myocardial infarction Sister CAD (coronary artery disease) CABG X 5 Brother CAD (coronary artery disease) Sister Sudden cardiac , Onset Age: 49 Social History Smoking Status: Former smoker how long ago did patient quit smokin years ago alcohol intake: never substance use type: does not use caffeine: No HPI HPI Chief Complaint: cough, dizzy, constipation Details: VALERIANO CROSS, is a 78 F who presents to the office today for initial evaluation approximately 4-day history of feeling, "off balance" along with dry cough and constipation/abdomina l bloating. She notes the cough is mild and tolerable is refusing POC screening for the same; no complaints of fever, chills, sweats, or chest pressure/shortness of breath/dyspnea on exertion. Regarding her complaints of feeling, "off balance" she feels this is most likely due to her abdominal discomfort; no LOC/syncope/near syncope. Regarding constipation, patient notes bowel obstructions has been an issue for her for several years, notes she has been previously worked up by GI with both upper endoscopy/lower endoscopies, states she moved her bowels earlier this morning that was thin diarrhea as she describes; no melena/hematochezia. She notes no complaints of dysuria or urinary frequency at this time though does appreciate a malodorous smell to her urine. No other complaints at this time. ROS Const Constitutional: No other (As above) Exam Const General: cooperative, healthy appearing and no acute distress Orientation: alert and awake HENRI Head: normal to inspection Ears: hearing grossly normal bilaterally, external ears normal, TM's normal bilaterally and EAC's normal Nose: external nose normal, nares normal, septum normal and no nasal discharge Face and sinus: normal facial exam, sinuses nontender and face symmetric Mouth: oral mucosae normal, lip normal, tongue normal, oropharynx normal and moist mucous membranes Throat: posterior oropharynx normal, tonsils normal, uvula midline and no postnasal drainage Eyes General: appearance normal, both eyes and all related structures Neck Neck: normal visual inspection, full ROM, no lymphadenopathy, no meningeal signs and supple Neck mass: No Thyroid: thyroid normal Chest Chest palpation inspection: normal inspection of the chest Resp Effort Inspection: normal respiratory effort, a (more content not included)... Normal [facility] Absolute lymphocyte countOrd ered By: Talya Gee on 06-19-2024 Lymphocytes Auto (Unsp spec) [#/Vol] 1.96 10*3/uL 0.83-4.51 [facility] Absolute neutrophil countOrd ered By: Talya Gee on 06-19-2024 Neutrophils (Bld) [#/Vol] 6.3 10*3/uL 2.0-7.7 [facility] Anion gap in Serum or Plasma Ordered By: Talya Gee on 06-19-2024 Anion gap [Moles/Vol] 11 mmol/L 5-15 [facility] Automated lymphocyte count a s percentage of total leukocytesOrdered By: Talya Gee on 06-19-2024 Lymphocytes/100 WBC Auto (Unsp spec) 20.8 % 19-41 [facility] BUN/creatinine ratioOrdered By: Talya Gee on 06-19-2024 Urea nitrogen/Creatinine [Mass ratio] 23.6 mg/mg High 10-20 [facility] Basophil percentageOrdered B y: Talya Gee on 06-19-2024 Basophils/100 WBC (Bld) 1.7 % High 0-1 [facility] Bilirubin, totalOrdered By: Talya Gee on 06-19-2024 Bilirubin [Mass/Vol] 0.41 mg/dL 0.00-1.30 [facility] CBC W/Diff, Automatedon Absolute Lymph 1.96 X10 3/uL Normal 0.83-4.51 [facility] Comment on above: Performed By: #### L 500.4050, L501.0900 #### [facility] [address] [place], [address] Absolute Neut 6.3 X10 3/uL Normal 2.0-7.7 [facility] Comment on above: Performed By: #### L 500.4050, L501.0900 #### [facility] [address] [place], [address] Basophils/100 WBC (Bld) 1.7 % High 0-1 [facility] Comment on above: Performed By: #### L 500.4050, L501.0900 #### [facility] [address] [place], [address] Eosinophils/100 WBC (Bld) 2.7 % Normal 0-5 [facility] Comment on above: Performed By: #### L 500.4050, L501.0900 #### [facility] [address] [place], [address] Erythrocyte distribution width (RBC) [Ratio] 12.0 % Normal 11.6-14.6 [facility] Comment on above: Performed By: #### L 500.4050, L501.0900 #### [facility] [address] [place], [address] Hematocrit (Bld) [Volume fraction] 37.0 % Normal 37-47 [facility] Comment on above: Performed By: #### L 500.4050, L501.0900 #### [facility] [address] [place], [address] Hemoglobin (Bld) [Mass/Vol] 12.8 g/dL Normal 12.0-15.0 [facility] Comment on above: Performed By: #### L 500.4050, L501.0900 #### [facility] [address] [place], [address] IG% 0.700 Normal 0.0-0.9 [facility] Comment on above: Result Comment: IG% - Immature Granulocytes (promyelocytes, myelocytes and metamyelocytes) > 1% indicates that a LEFT SHIFT is Present. Performed By: #### L 500.4050, L501.0900 #### [facility] [address] [place], [address] Lymphocytes/100 WBC (Bld) 20.8 % Normal 19-41 [facility] Comment on above: Performed By: #### L 500.4050, L501.0900 #### [facility] [address] [place], [address] MCH (RBC) [Entitic mass] 31.1 pg Normal 27.0-32.0 [facility] Comment on above: Performed By: #### L 500.4050, L501.0900 #### [facility] [address] [place], [address] MCHC (RBC) [Mass/Vol] 34.6 g/dL Normal 32-36 [facility] Comment on above: Performed By: #### L 500.4050, L501.0900 #### [facility] [address], [address] MCV (RBC) [Entitic vol] 89.8 fL Normal 81-99 [facility] Comment on above: Performed By: #### L 500.4050, L501.0900 #### [facility] [address] [place], [address] Monocytes/100 WBC (Bld) 7.5 % Normal 0-10 [facility] Comment on above: Performed By: #### L 500.4050, L501.0900 #### [facility] [address] [place], [address] Neutrophils/100 WBC (Bld) 66.6 % Normal 47-70 [facility] Comment on above: Performed By: #### L 500.4050, L501.0900 #### [facility] [address] [place], [address] Nucleated RBC (Bld) [#/Vol] 0 10*3/uL Normal 0-5 [facility] Comment on above: Performed By: #### L 500.4050, L501.0900 #### [facility] [address] [place], [address] Platelet mean volume (Bld) [Entitic vol] 11.3 fL Normal 6.2-12.0 [facility] Comment on above: Performed By: #### L 500.4050, L501.0900 #### [facility] [address] [place], [address] Platelets (Bld) [#/Vol] 270 10*3/uL Normal 150-450 [facility] Comment on above: Performed By: #### L 500.4050, L501.0900 #### [facility] [address] [place], [address] RBC (Bld) [#/Vol] 4.12 10*6/uL Low 4.2-5.4 [facility] Comment on above: Performed By: #### L 500.4050, L501.0900 #### [facility] [address] [place], [address] RDW SD 38.6 fl Normal 35.1-43.9 [facility] Comment on above: Performed By: #### L 500.4050, L501.0900 #### [facility] [address] [place], [address] WBC (Bld) [#/Vol] 9.4 10*3/uL Normal 4.4-11.0 [facility] Comment on above: Performed By: #### L 500.4050, L501.0900 #### [facility] [address] [place], [address] Carbon dioxide, total [Moles /volume] in Central venous bloodOrdered By: Talya Gee on 06-19-2024 CO2 [Moles/Vol] 25.4 mmol/L 21.0-32.0 [facility] Chloride assayOrdered By: Juliane Gee on 06-19-2024 Chloride [Moles/Vol] 102 mmol/L 98-108 [facility] Comprehensive Metabolic Prof ilon 06-19-2024 Albumin [Mass/Vol] 4.2 g/dL Normal 3.4-4.8 [facility] Comment on above: Performed By: #### L 500.4050, L501.0900 #### [facility] [address] [place], [address] Albumin/Globulin [Mass ratio] 1.5 {ratio} Normal 0.9-2.4 [facility] Comment on above: Performed By: #### L 500.4050, L501.0900 #### [facility] [address] [place], [address] ALK PHOS 116 U/L High 35-104 [facility] Comment on above: Performed By: #### L 500.4050, L501.0900 #### [facility] [address] [place], [address] ALT [Catalytic activity/Vol] 15 U/L Normal <=34 [facility] Comment on above: Performed By: #### L 500.4050, L501.0900 #### [facility] [address] [place], [address] AST [Catalytic activity/Vol] 17 U/L Normal <=31 [facility] Comment on above: Performed By: #### L 500.4050, L501.0900 #### [facility] [address] [place], [address] Bilirubin [Mass/Vol] 0.41 mg/dL Normal 0.00-1.30 [facility] Comment on above: Performed By: #### L 500.4050, L501.0900 #### [facility] [address] [place], [address] BUN/CRE 23.6 RATIO High 10-20 [facility] Comment on above: Performed By: #### L 500.4050, L501.0900 #### [facility] [address] [place], [address] Calcium [Mass/Vol] 10.4 mg/dL Normal 7.6-11.0 [facility] Comment on above: Performed By: #### L 500.4050, L501.0900 #### [facility] [address] [place], [address] Chloride [Moles/Vol] 102 mmol/L Normal 98-108 [facility] Comment on above: Performed By: #### L 500.4050, L501.0900 #### [facility] [address] [place], [address] CO2 [Moles/Vol] 25.4 mmol/L Normal 21.0-32.0 [facility] Comment on above: Performed By: #### L 500.4050, L501.0900 #### [facility] [address] [place], [address] Creatinine [Mass/Vol] 1.43 mg/dL High 0.70-1.20 [facility] Comment on above: Performed By: #### L 500.4050, L501.0900 #### [facility] [address] [place], [address] GAP 11 Normal 5-15 [facility] Comment on above: Performed By: #### L 500.4050, L501.0900 #### [facility] [address] [place], [address] GFR/1.73 sq M.predicted among non-blacks MDRD (S/P/Bld) [Vol rate/Area] 38 mL/min/{1.73_m2} Low >60 [facility] Comment on above: Result Comment: mL/m in/1.73m2 CKD-EPI Creatinine Equation (2020) Performed By: #### L 500.4050, L501.0900 #### [facility] [address] [place], [address] Globulin (S) [Mass/Vol] 2.8 g/dL Normal 2.2-4.[address] [facility] Comment on above: Performed By: #### L 500.4050, L501.0900 #### [facility] [address] [place], [address] Glucose [Mass/Vol] 230 mg/dL High 70-99 [facility] Comment on above: Performed By: #### L 500.4050, L501.0900 #### [facility] [address] [place], [address] Potassium [Moles/Vol] 4.9 mmol/L Normal 3.3-5.1 [facility] Comment on above: Performed By: #### L 500.4050, L501.0900 #### [facility] [address] [place], [address] Sodium [Moles/Vol] 139 mmol/L Normal 133-145 [facility] Comment on above: Performed By: #### L 500.4050, L501.0900 #### [facility] [address] [place], [address] T PROT 6.9 g/dL Normal 5.9-8.4 [facility] Comment on above: Performed By: #### L 500.4050, L501.0900 #### [facility] [address] [place], [address] Urea nitrogen [Mass/Vol] 34 mg/dL High 4-19 [facility] Comment on above: Performed By: #### L 500.4050, L501.0900 #### [facility] [address] [place], [address] Eosinophil percentageOrdered By: Talya Gee on 06-19-2024 Eosinophils/100 WBC (Bld) 2.7 % 0-5 [facility] Erythrocyte distribution wid th ratioOrdered By: Talya Gee on 06-19-2024 Erythrocyte distribution width (RBC) [Ratio] 12.0 % 11.6-14.6 [facility] Erythrocyte distribution wid th standard deviationOrdered By: Talya Gee on 06-19-2024 Erythrocyte distribution width (RBC) [Entitic vol] 38.6 fL 35.1-43.9 [facility] Erythrocyte distribution width (RBC) [Ratio] 38.6 fl 35.1-43.9 [facility] GFR/1.73 sq M.predicted shaheen g non-blacks MDRD (S/P/Bld) [Vol rate/Area]Ordered By: Talya Gee on 06-19-2024 Estimated GFR (MDRD) Non-Af Amer 38 Low >60 [facility] Comment on above: mL/min/1.73m2 CKD-EP I Creatinine Equation (2020) Glomerular filtration rate ( GFR) estimation/1.73 sq m using serum, plasma, or whole bOrdered By: Talya Gee on 06-19-2024 GFR/1.73 sq M.predicted among non-blacks MDRD (S/P/Bld) [Vol rate/Area] 38 mL/min/{1.73_m2} Low >60 [facility] Comment on above: mL/min/1.73m2 CKD-EP I Creatinine Equation (2020) Hematocrit Auto (Bld) [Volum e fraction]Ordered By: Talya Gee on 06-19-2024 Hematocrit (Bld) [Volume fraction] 37.0 % 37-47 [facility] Hemoglobin measurementOrdere d By: Talya Gee on 06-19-2024 Hemoglobin (Bld) [Mass/Vol] 12.8 g/dL 12.0-15.0 [facility] Immature granulocytes/100 WB C Auto (Bld)Ordered By: Talya Gee on 06-19-2024 Immature granulocytes/100 WBC (Bld) 0.700 % 0.0-0.9 [facility] Comment on above: IG% - Immature Granu locytes (promyelocytes, myelocytes and metamyelocytes) > 1% indicates that a LEFT SHIFT is Present. Laboratory - Chemistry and C hemistry - challengeOrdered By: Talya Gee on 06-19-2024 AST [Catalytic activity/Vol] 17 U/L <32 [facility] Lymphocytes Auto (Unsp spec) [#/Vol]Ordered By: Talya Gee on 06-19-2024 Lymphocytes (Bld) [#/Vol] 1.96 10*3/uL 0.83-4.51 [facility] Lymphocytes/100 WBC Auto (Un sp spec)Ordered By: Talya Gee on 06-19-2024 Lymphocytes/100 WBC (Bld) 20.8 % 19-41 [facility] MCV (mean corpuscular volume ) determinationOrdered By: Talya Gee on 06-19-2024 MCV (RBC) [Entitic vol] 89.8 fL 81-99 [facility] Mean corpuscular hemoglobin (MCH) determinationOrdered By: Talya Gee on 06-19-2024 MCH (RBC) [Entitic mass] 31.1 pg 27.0-32.0 [facility] Mean corpuscular hemoglobin concentration (MCHC) determinationOrdered By: Talya Gee on 06-19-2024 MCHC (RBC) [Mass/Vol] 34.6 g/dL 32-36 [facility] Mean platelet volume determi nationOrdered By: Talya Gee on 06-19-2024 Platelet mean volume (Bld) [Entitic vol] 11.3 fL 6.2-12.0 [facility] Monocyte percentageOrdered B y: Talya Gee on 06-19-2024 Monocytes/100 WBC (Bld) 7.5 % 0-10 [facility] Neutrophil percentageOrdered By: Talya Gee on 06-19-2024 Neutrophils/100 WBC (Bld) 66.6 % 47-70 [facility] Nucleated red blood cell per centageOrdered By: Talya Gee on 06-19-2024 Nucleated RBC/100 WBC (Bld) [Ratio] 0 % 0-5 [facility] Platelet countOrdered By: uJliane Gee on 06-19-2024 Platelets (Bld) [#/Vol] 270 10*3/uL 150-450 [facility] Potassium (Unsp spec) [Mass/ Vol]Ordered By: Talya Gee on 06-19-2024 Potassium [Moles/Vol] 4.9 mmol/L 3.3-5.1 [facility] Potassium measurement (mass/ volume)Ordered By: Talya Gee on 06-19-2024 Potassium (Unsp spec) [Mass/Vol] 4.9 mmol/L 3.3-5.1 [facility] RBC Auto (Bld) [#/Vol]Ordere d By: Talya Gee on 06-19-2024 RBC (Bld) [#/Vol] 4.12 10*6/uL Low 4.2-5.4 [facility] Serum creatinine measurement (mass/volume)Ordered By: Talya Gee on 06-19-2024 Creatinine [Mass/Vol] 1.43 mg/dL High 0.70-1.20 [facility] Serum globulin measurementOr dered By: Talya Gee on 06-19-2024 Globulin (S) [Mass/Vol] 2.8 g/dL 2.2-4.2 [facility] Serum glucose measurement (m ass/volume)Ordered By: Talya Gee on 06-19-2024 Glucose [Mass/Vol] 230 mg/dL High 70-99 [facility] Serum or plasma alanine fatima otransferase (ALT) measurementOrdered By: Talya Gee on 06-19-2024 ALT [Catalytic activity/Vol] 15 U/L <35 [facility] Serum or plasma albumin francie urement (mass/volume)Ordered By: Talya Gee on 06-19-2024 Albumin [Mass/Vol] 4.2 g/dL 3.4-4.8 [facility] Serum or plasma albumin/glob ulin mass ratioOrdered By: Talya Gee on 06-19-2024 Albumin/Globulin [Mass ratio] 1.5 {ratio} 0.9-2.4 [facility] Serum or plasma alkaline marisa sphatase measurementOrdered By: Talya Gee on 06-19-2024 ALP [Catalytic activity/Vol] 116 U/L High 35-104 [facility] Serum or plasma calcium francie urement (mass/volume)Ordered By: Talya Gee on 06-19-2024 Calcium [Mass/Vol] 10.4 mg/dL 7.6-11.0 [facility] Serum or plasma urea nitroge n measurement (mass/volume)Ordered By: Talya Gee on 06-19-2024 Urea nitrogen [Mass/Vol] 34 mg/dL High 4-19 [facility] Sodium levelOrdered By: Miguel Gee on 06-19-2024 Sodium [Moles/Vol] 139 mmol/L 133-145 [facility] Total proteinOrdered By: Samantha Gee on 06-19-2024 Protein [Mass/Vol] 6.9 g/dL 5.9-8.4 [facility] White blood cell (WBC) count Ordered By: Talya Gee on 06-19-2024 WBC (Bld) [#/Vol] 9.4 10*3/uL 4.4-11.0 [facility] Gastroenterology Visit Repor ton 06-17-2024 Gastroenterology Visit Report [facility] [address] [place] [address] OFFICE VISIT Date of Service: 06/17/24 MR#: [id number] Acct: [id number] Name: VALERIANO CROSS Rep #: [id number] : 1945 Provider: CITLALY Prado Age/Sex: 78/F [place] [facility] [place]: Signed Intake Vital Signs 12/04/23 12:54 Height 4 ft 11 in Weight: 129 lb 8 oz BMI 26.2 BP 131/75 H Pulse 69 Pulse Oximetry (%) 96 Intake Visit Reasons: Abdominal complaints Chief Complaint: abd pain Allergies benzonatate (From ZIRX) Allergy (Verified 08/27/23 14:26) lip, tongue swelling omeprazole (From Prilosec) Adverse Reaction (Verified 08/27/23 14:26) Other omeprazole magnesium (From Prilosec) Adverse Reaction (Verified 08/27/23 14:26) Other Medications ???Medication ???Instructions ???Recorded ???Confirmed ???Type lisinopril 20 mg tablet 20 mg PO DAILY bp 02/10/15 5 History aspirin 81 mg tablet,delayed 81 mg PO DAILY@0800 pain 02/18/20 06/17/24 History release cholecalciferol (vitamin D3) 50 50 mcg PO DAILY vitamin 12/09/20 0 06/17/24 History mcg (2,000 unit) capsule vit 2 tab PO DAILY 06/28/22 06/17/24 H istory [id number] 500 mg-50 mg-25 mg-40 mg tablet (Bioflex) vitamin E mixed 400 unit tablet 400 unit PO DAILY 06/28/22 5 History glipizide 5 mg tablet, extended 5 mg PO DAILY 09/25/22 06/17/24 Hi story release 24 hr finerenone 10 mg tablet (Kerendia) 20 mg PO DAILY kidneys 03/29/23 06/17/24 History nitroglycerin 0.4 mg sublingual 0.4 mg sublingual Q5M PRN Chest 06/17/24 Rx tablet Pain #25 tabs pyridoxine (vitamin B6) 100 mg 100 mg PO DAILY 03/29/23 06/17/24 History tablet hydrocodone-acetamino phen 5-325mg 1 tab PO Q6H PRN PRN Pain 3 days 05/04/23 06/17/24 Rx 5mg-325mg #10 TABLETS metformin 500 mg tablet,extended 500 mg PO QDAY 12/04/23 06/17/24 H istory release 24 hr ezetimibe 10 mg tablet (Zetia) 10 mg PO DAILY #90 tabs 04/21/24 0 06/17/24 Rx Have you fallen in the past year?: No PFSH Medical History Hiatal hernia Diverticulosis PAD (peripheral artery disease) Heart disease Kidney disease Arthritis Presence of stent in coronary artery ( 02/07/22) Old myocardial infarction Atherosclerotic heart disease of [place] coronary artery without angina pectoris NSTEMI (non-ST elevated myocardial infarction) (12/03/13) Essential hypertension Gastroparesis Syncope Diastolic dysfunction Pancreatic atrophy GERD (gastroesophageal reflux disease) Diabetes mellitus type II, uncontrolled COPD (chronic obstructive pulmonary disease) HLD (hyperlipidemia) Surgical History S/P PTCA (percutaneous transluminal coronary angioplasty) Presence of coronary angioplasty implant and graft (02/07/22) History of tonsillectomy History of cataract extraction History of section History of cholecystectomy ( 2013) Family History Father Myocardial infarction Sister CAD (coronary artery disease) CABG X 5 Brother CAD (coronary artery disease) Sister Sudden cardiac , Onset Age: 49 Social History Smoking Status: Former smoker how long ago did patient quit smokin years ago alcohol intake: never substance use type: does not use caffeine: No HPI HPI Chief Complaint: abd pain Details: VALERIANO CROSS, is a 78 F who presents to the office today for establishment with I Pt has complaints of sharp abd pain and heartburn. Pt is getting the abd pain every couple nights. Pain lasts typically around a minute. It feels it "catches". Certain movements trigger it. She is s/p cholecystectomy and following this she struggled with diarrhea. SHe no longer has diarrhea anymore. Her last colonoscopy and EGD was about one year ago with some polyps. She takes Metamucil and senna as needed. She does not drink alcohol and quit smoking in 1991. While reviewing medical records in [facility] it appears she struggled with gastroparesis over a period time in 2013. She feels this flares up on occasion. She thinks her pain is related to her liver as her urine smells. She denies nausea, vomiting, diarrhea or melena. Plan; -CBC -CMP -Stool ROS Const Constitutional: Positive for weakness; No fatigue, fever(s) or weight change ENT ENT: No difficulty swallowing Cardio Cardiology: Positive for leg pain with exertion Gastro GI: Positive for abdominal pain, bloating, heartburn and excessive flatus; No belching, change in bowel habits, change in stool character, coffee aimee (more content not included)... Normal [facility] 08-21-2023 [employer] Tele[employer] ([employer]) VALERIANO CROSS ([id number]) 1945 F Date Time Provider Department 08/21/23 ERIBERTO KIMBALL [employer] During your visit today, we recorded the following information about you: Eriberto Kimball MD 08/21/2023 8:56 PM Signed FOLLOW UP ENDOSCOPY - RESULTS AND RECOMMENDATIONS NAME: Valeriano Cross CLINIC NO.: [id number] : 1945 DATE: August 21, 2023 PRIMARY CARE PROVIDER: Katt Ramsay MD Valeriano Cross is a patient referred for endoscopy for a change in bowel habits. The patient was seen by Carmen Willis who noted: The patient is a 77 year old [...] within the last few days has developed "sores" in vaginal area and some back toward rectum. 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 Valeriano has undergone prior [...] Denies problems with sedation in the past. I performed upper and lower endoscopy on August 14, 2023. The patient was found to have: Upper Endoscopy Impression: - Normal examined jejunum. Biopsied. - Normal examined duodenum. - Normal stomach. Biopsied. - Mildly severe reflux esophagitis with no bleeding. Biopsied. - Normal middle third of esophagus. Biopsied. Lower Endoscopy Impression: - The examined portion of the ileum was normal. Biopsied. - One diminutive polyp in the cecum, removed with a cold biopsy forceps. Resected and retrieved. - The entire examined colon is normal. Biopsied. - Diverticulosis in the sigmoid colon. - The examination was otherwise normal on direct and retroflexion views. Pathology demonstrated: FINAL DIAGNOSIS A. Jejunum, biopsy: -Small intestinal mucosa with no diagnostic alteration B. Antrum, biopsy: -Antral mucosa with no diagnostic alteration -No morphologic evidence of Helicobacter pylori C. Distal esophagus, biopsy: -Squamo-gastric junctional mucosa with reactive epithelial changes -Negative for intestinal metaplasia D. Mid esophagus, biopsy: -Squamous mucosa with no diagnostic alteration -No prominence of intraepithelial eosinophils E. Small bowel, terminal ileum, biopsy: -Small intestinal mucosa with no diagnostic alteration F. Ascending colon, biopsy: -Colonic mucosa with no diagnostic alteration -No evidence of microscopic colitis G. Descending colon, polypectomy: -Colonic mucosa with lymphoid aggregate ( deeper levels examined) H. Cecum, polypectomy: -Tubular adenoma IMPRESSION: Gastritis, distal esophagitis, adenomatous polyp PLAN: INSTRUCTIONS FOLLOWING A POLYP FOUND AT COLONOSCOPY You were found to have an adenomatous colon polyp. I recommend you undergo repeat endoscopy in 5 years. If you note bleeding, change in bowel habits, or other suspicious colon related symptoms before that time, those symptoms should be evaluated as necessary. If you have any difficulties or concerns, you should contact our office immediately. INSTRUCTIONS FOR PEPTIC ULCER DISEASE/GASTRITIS I discussed with you the findings of your upper endoscopy. Your upper endoscopy demonstrated signs of peptic ulcer disease or irritation. This can be seen as a range of issues from actual ulcers in the stomach or duodenum (first part of the small bowel) or irritation ranging from redness to more significant irritation with erosions of the stomach or duodenum. These conditions are usually caused from a combination of too much acid production or to (more content not included)... Normal [facility] [id number] 08-14-2023 [id number] HNO ID: [id number] Author: ROSA BOGGS RN Service: ? Author Type: Registered Nurse Type: [id number] Filed: 08/14/2023 12:47 Note Text: The patient received a copy of Colonoscopy and EGD discharge instructions that contain information for how to contact the physician who performed the procedure and when to seek medical care. Normal [facility] Colonoscopyon 08-14-2023 Colonoscopy [facility] Gastrointestinal Endoscopy Patient Name: Valeriano Cross Procedure Date: 08/14/2023 11:51 AM Date of : 1945 Admit Type: Outpatient Age: 77 Gender: Female Note Status: Finalized Procedure: Colonoscopy Indications: Clinically significant diarrhea of unexplained origin, Change in bowel habits Providers: Eriberto Kimball MD Patient Profile: This is a 77 year old female. Refer to note in patient chart for documentation of history and physical. Last Colonoscopy: 3 years ago. Referring Physician: Carmen Willis (pa) (Referring ), Katt Ramsay (Referring ) Medicines: See the other procedure note for documentation of the administered medications Complications: No immediate complications. Requesting Provider: Procedure: Pre-Anesthesia Assessment: - Prior to the procedure, a History and Physical was performed, and patient medications and allergies were reviewed. The patient is competent. The risks and benefits of the procedure and the sedation options and risks were discussed with the patient. All questions were answered and informed consent was obtained. Patient identification and proposed procedure were verified by the physician and the nurse in the procedure room. Mental Status Examination: alert and oriented. Respiratory Examination: clear to auscultation. Prophylactic Antibiotics: The patient does not require prophylactic antibiotics. Prior Anticoagulants: The patient has taken no anticoagulant or antiplatelet agents. ASA Grade Assessment: III - A patient with severe systemic disease. After reviewing the risks and benefits, the patient was deemed in satisfactory condition to undergo the procedure. The anesthesia plan was to use moderate sedation / analgesia (conscious sedation). Immediately prior to administration of medications, the patient was re-assessed for adequacy to receive sedatives. The heart rate, respiratory rate, oxygen saturations, blood pressure, adequacy of pulmonary ventilation, and response to care were monitored throughout the procedure. The physical status of the patient was re-assessed after the procedure. After I obtained informed consent, the scope was passed under direct vision. Throughout the procedure, the patient's blood pressure, pulse, and oxygen saturations were monitored continuously. The Colonoscope was introduced through the anus and advanced to 3 cm into the ileum. The colonoscopy was performed without difficulty. The patient tolerated the procedure well. The quality of the bowel preparation was good. The terminal ileum, ileocecal valve, appendiceal orifice, and rectum were photographed. Moderate Sedation: Moderate (conscious) sedation was personally administered by the endoscopist. The following parameters were monitored: oxygen saturation, heart rate, blood pressure, and response to care. Total physician intraservice time was 26 minutes. The administration of moderate sedation was initiated at 11:57 AM. Findings: The perianal and digital rectal examinations were normal. The terminal ileum appeared normal. Biopsies were taken with a cold forceps for histology. A diminutive polyp was found in the cecum. The polyp was sessile. The polyp was removed with a cold biopsy forceps. Resection and retrieval were complete. The colon (entire examined portion) appeared normal. Biopsies for histology were taken with a cold forceps from the ascending colon and descending colon for evaluation of microscopic colitis. Many medium-mouthed diverticula were found in the sigmoid colon. The exam was otherwise without abnormality on direct and retroflexion views. Impression: - The examined portion of the ileum was normal. Biopsied. - One diminutive polyp in the cecum, removed with a cold biopsy forceps. Resected and retrieved. - The entire examined colon is normal. Biopsied. - Diverticulosis in the sigmoid colon. - The examination was otherwise normal on direct and retroflexion views. Recommendation: - Discharge patient to home. - Resume previous diet. - Continue present medications. - Await pathology results. - Repeat colonoscopy for surveillance based on pathology results. - Telephone my office for pathology results in 1 week. - Patient has a contact number available for emergencies. The signs and symptoms of potential delayed complications were discussed with the patient. Return to normal activities tomorrow. Written discharge instructions were provided to the patient. Procedure Code(s): --- Professional --- 13147, Colonoscopy, flexible; with biopsy, single or multiple G0500, Moderate sedation services provided by the same physician or other qualified health point of care specialist performing a gastrointestinal endoscopic service that sedation supports, requiring the presence of an independent trained observer to assist in the monitoring of the (more content not included)... Normal [facility] EGD Study observation [facility]je[facility]elle [facility] Name: Valeriano Cross Procedure Date: 08/14/2023 11:49 AM Date of : 1945 Admit Type: Outpatient Age: 77 Gender: Female Note Status: Finalized Procedure: Upper GI endoscopy Indications: Abdominal bloating Providers: Eriberto Kimball MD Patient Profile: This is a 77 year old female. Refer to note in patient chart for documentation of history and physical. Referring Physician: Carmen Willis (pa) (Referring ), Katt Ramsay (Referring ) Medicines: Midazolam 4 mg IV, Fentanyl 75 micrograms IV Complications: No immediate complications. Requesting Provider: Procedure: Pre-Anesthesia Assessment: - Prior to the procedure, a History and Physical was performed, and patient medications and allergies were reviewed. The patient is competent. The risks and benefits of the procedure and the sedation options and risks were discussed with the patient. All questions were answered and informed consent was obtained. Patient identification and proposed procedure were verified by the physician and the nurse in the procedure room. Mental Status Examination: alert and oriented. Respiratory Examination: clear to auscultation. Prophylactic Antibiotics: The patient does not require prophylactic antibiotics. Prior Anticoagulants: The patient has taken no anticoagulant or antiplatelet agents. ASA Grade Assessment: III - A patient with severe systemic disease. After reviewing the risks and benefits, the patient was deemed in satisfactory condition to undergo the procedure. The anesthesia plan was to use moderate sedation / analgesia (conscious sedation). Immediately prior to administration of medications, the patient was re-assessed for adequacy to receive sedatives. The heart rate, respiratory rate, oxygen saturations, blood pressure, adequacy of pulmonary ventilation, and response to care were monitored throughout the procedure. The physical status of the patient was re-assessed after the procedure. After obtaining informed consent, the endoscope was passed under direct vision. Throughout the procedure, the patient's blood pressure, pulse, and oxygen saturations were monitored continuously. The Endoscope was introduced through the mouth, and advanced to the jejunum. The upper GI endoscopy was accomplished without difficulty. The patient tolerated the procedure well. Moderate Sedation: Moderate (conscious) sedation was personally administered by the endoscopist. The following parameters were monitored: oxygen saturation, heart rate, blood pressure, and response to care. Total physician intraservice time was 26 minutes. The administration of moderate sedation was initiated at 11:57 AM. Findings: The examined jejunum was normal. Biopsies for histology were taken with a cold forceps for evaluation of celiac disease. The examined duodenum was normal. The entire examined stomach was normal. Biopsies were taken with a cold forceps for histology. Mildly severe esophagitis with no bleeding was found in the lower third of the esophagus. Biopsies were taken with a cold forceps for histology. The middle third of the esophagus was normal. Biopsies were taken with a cold forceps for histology. Biopsies were taken with a cold forceps for histology. Impression: - Normal examined jejunum. Biopsied. - Normal examined duodenum. - Normal stomach. Biopsied. - Mildly severe reflux esophagitis with no bleeding. Biopsied. - Normal middle third of esophagus. Biopsied. Recommendation: - Discharge patient to home. - Resume previous diet. - Continue present medications. - Await pathology results. - Telephone my office for pathology results in 1 (more content not included)... [facility] Flexible sigmoidoscopy study on 08-14-2023 Annamarie [facility] Gastrointestinal Endoscopy Patient Name: Valeriano Cross Procedure Date: 08/14/2023 11:51 AM Date of : 1945 Admit Type: Outpatient Age: 77 Gender: Female Note Status: Finalized Procedure: Colonoscopy Indications: Clinically significant diarrhea of unexplained origin, Change in bowel habits Providers: Eriberto Kimball MD Patient Profile: This is a 77 year old female. Refer to note in patient chart for documentation of history and physical. Last Colonoscopy: 3 years ago. Referring Physician: Carmen Willis (pa) (Referring MD), Katt Ramsay (Referring MD) Medicines: See the other procedure note for documentation of the administered medications Complications: No immediate complications. Requesting Provider: Procedure: Pre-Anesthesia Assessment: - Prior to the procedure, a History and Physical was performed, and patient medications and allergies were reviewed. The patient is competent. The risks and benefits of the procedure and the sedation options and risks were discussed with the patient. All questions were answered and informed consent was obtained. Patient identification and proposed procedure were verified by the physician and the nurse in the procedure room. Mental Status Examination: alert and oriented. Respiratory Examination: clear to auscultation. Prophylactic Antibiotics: The patient does not require prophylactic antibiotics. Prior Anticoagulants: The patient has taken no anticoagulant or antiplatelet agents. ASA Grade Assessment: III - A patient with severe systemic disease. After reviewing the risks and benefits, the patient was deemed in satisfactory condition to undergo the procedure. The anesthesia plan was to use moderate sedation / analgesia (conscious sedation). Immediately prior to administration of medications, the patient was re-assessed for adequacy to receive sedatives. The heart rate, respiratory rate, oxygen saturations, blood pressure, adequacy of pulmonary ventilation, and response to care were monitored throughout the procedure. The physical status of the patient was re-assessed after the procedure. After I obtained informed consent, the scope was passed under direct vision. Throughout the procedure, the patient's blood pressure, pulse, and oxygen saturations were monitored continuously. The Colonoscope was introduced through the anus and advanced to 3 cm into the ileum. The colonoscopy was performed without difficulty. The patient tolerated the procedure well. The quality of the bowel preparation was good. The terminal ileum, ileocecal valve, appendiceal orifice, and rectum were photographed. Moderate Sedation: Moderate (conscious) sedation was personally administered by the endoscopist. The following parameters were monitored: oxygen saturation, heart rate, blood pressure, and response to care. Total physician intraservice time was 26 minutes. The administration of moderate sedation was initiated at 11:57 AM. Findings: The perianal and digital rectal examinations were normal. The terminal ileum appeared normal. Biopsies were taken with a cold forceps for histology. A diminutive polyp was found in the cecum. The polyp was sessile. The polyp was removed with a cold biopsy forceps. Resection and retrieval were complete. The colon (entire examined portion) appeared normal. Biopsies for histology were taken with a cold forceps from the ascending colon and descending colon for evaluation of microscopic colitis. Many medium-mouthed diverticula were found in the sigmoid colon. The exam was otherwise without abnormality on direct and retroflexion views. Impression: - The examined portion of the ileum was normal. Biopsied. - One diminutive polyp in the cecum, remove (more content not included)... PROVATION [facility] GLUCOSE, BLOOD (POC)on 08-13 Glucose [Mass/Vol] 113 mg/dL Abnormal 74 - 99 mg/dL [facility] Comment on above: Location:[facility] is[facility]ac [facility], [address], [place], [address] The Accu-Chek Inform II glucose meter has not been approved for testing on patients receiving intensive medical intervention or therapy and results from this point of care glucose test should not be used for patient management decisions in these cases. Inaccurate results may also occur from other interfering factors, such as N-acetylcysteine (blood concentrations of greater than 5mg/dL), galactose, extremes of hematocrit (<10 or >65), or high doses of ascorbic acid (vitamin C) greater than 3mg/dL. Consider alternate testing mechanisms (e.g. core lab, blood gas instrument) in the above situations. Interpretation and review of laboratory results Abnormal [facility] Glucose [Mass/Vol] 122 mg/dL Abnormal 74 - 99 mg/dL [facility] Comment on above: Location:[facility], [address] [place], [place], [address] The Accu-Chek Inform II glucose meter has not been approved for testing on patients receiving intensive medical intervention or therapy and results from this point of care glucose test should not be used for patient management decisions in these cases. Inaccurate results may also occur from other interfering factors, such as N-acetylcysteine (blood concentrations of greater than 5mg/dL), galactose, extremes of hematocrit (<10 or >65), or high doses of ascorbic acid (vitamin C) greater than 3mg/dL. Consider alternate testing mechanisms (e.g. core lab, blood gas instrument) in the above situations. Interpretation and review of laboratory results Abnormal [facility] HISTORY PHYSICALon HISTORY PHYSICAL HNO ID: [id number] Author: ERIBERTO KIMBALL MD Service: General Surgery Author Type: Physician Type: H&P Filed: 08/14/2023 11:13 Note Text: HISTORY AND PHYSICAL Valeriano Daniel Cross 1945 REFERRING PHYSICIAN: No ref. provider found [...] within the last few days has developed "sores" in vaginal area and some back toward rectum. 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 Valeriano has undergone prior [...] sedation in the past. PAST MEDICAL HISTORY PAST MEDICAL HISTORY Diagnosis Date Abdominal pain [...] 06/29/2014 Vitamin D deficiency PAST SURGICAL HISTORY PAST SURGICAL HISTORY Procedure Laterality Date ABDOMINAL SURGERY HX CATARACT SURGERY, COMPLEX right CHG DELIVERY 1970 COLONOSCOPY 12/27/2013 COLONOSCOPY SCRN NOT HIGH RISK 05/06/2020 EGD 05/06/2020 EGD INTRALUMINAL TUBE/CATHETER INSERTION 01/06/2014 [facility] EGD TRANSORAL BIOPSY SINGLE/MULTIPLE 12/12/2013 mild gastritis EYE SURGERY HX LAPAROSCOPY SURG CHOLECYSTECTOMY 11/17/2013 LEFT HEART CATH,PERCUTANEOUS 12/04/2013 Cardiac cath, L heart TONSILLECTOMY HX CURRENT MEDICATIONS Current Outpatient Medications Medication Sig finerenone (KERENDIA) 20 mg tablet Take 20 mg by mouth once daily. ezetimibe-atorvastati n 10-10 mg tab Take 10 mg by [...] mouth daily at bedtime. (Patient not taking: (more content not included)... Normal [facility] NURSING PROGon 08-14-2023 NURSING PROG HNO ID: [id number] Author: ROSA BOGGS RN Service: ? Author Type: Registered Nurse Type: Nursing Progress Note Filed: 08/14/2023 12:49 Note Text: Pt. arrived to phase 2 resting on left side. SR up x 2, call light in reach. Denies pain. Rosa Boggs RN Normal [facility] No Panel Informationon 08-13 Radiology Study observation (narrative) [facility] SURGICAL PATHOLOGYon 024 CASE REPORT Normal [facility] Comment on above: Order Comment: Speci men Type: TISSUE SPECIMEN Ordering Facility: [facility] Address: [address] [place] [address] Result Comment: Surg [facility] Pathology Report Case: [id number] Authorizing Provider: Eriberto Kimball MD Collected: 08/14/2023 12:01 PM Ordering Location: Ambulatory Surgery Received: 08/14/2023 12:50 PM Pathologist: Pa Goel MD Specimens: A) - Small Bowel, Jejunum, Biopsy B) - Stomach, Antrum, Biopsy, Antral for H/H C) - Esophagus, Distal, Biopsy D) - Esophagus, Mid, Biopsy E) - Small Bowel, Terminal Ileum, Biopsy, TI bx F) - Colon, Ascending, Biopsy G) - Colon, Descending, Polyp H) - Colon, Cecum, Polyp Performed By: #### S #### [facility] CLIA [id number] [address] [place] [address] FINAL DIAGNOSIS Normal [facility] Comment on above: Order Comment: Speci men Type: TISSUE SPECIMEN Ordering Facility: [facility] Address: [address] [place] [address] Result Comment: A. J ejunum, biopsy: -Small intestinal mucosa with no diagnostic alteration B. Antrum, biopsy: -Antral mucosa with no diagnostic alteration -No morphologic evidence of Helicobacter pylori C. Distal esophagus, biopsy: -Squamo-gastric junctional mucosa with reactive epithelial changes -Negative for intestinal metaplasia D. Mid esophagus, biopsy: -Squamous mucosa with no diagnostic alteration -No prominence of intraepithelial eosinophils E. Small bowel, terminal ileum, biopsy: -Small intestinal mucosa with no diagnostic alteration F. Ascending colon, biopsy: -Colonic mucosa with no diagnostic alteration -No evidence of microscopic colitis G. Descending colon, polypectomy: -Colonic mucosa with lymphoid aggregate ( deeper levels examined) H. Cecum, polypectomy: -Tubular adenoma Performed By: #### S #### [facility] CLIA [id number] [address] [place] [address] OF [facility] FINAL PERFORMING LAB Normal [facility] Comment on above: Order Comment: Speci men Type: TISSUE SPECIMEN Ordering Facility: [facility] Address: [address] [place] [address] Result Comment: Diag nostic interpretation performed at [facility], [address] [place] [address] CLIA# [id number] Boat Designer: Shravan Sexton M.D. Performed By: #### S #### [facility] CLIA [id number] [address] [place] [address] [id number] [place] [address] [place] GROSS DESCRIPTION Normal [facility] Comment on above: Order Comment: Speci men Type: TISSUE SPECIMEN Ordering Facility: [facility] Address: [address] [place] [address] Result Comment: A. S mall Bowel, Jejunum, Biopsy Received in formalin is one piece of valdez, soft tissue measuring 0.3 x 0.3 x 0.3 cm. Totally submitted in one cassette. B. Stomach, Antrum, Biopsy Received in formalin is one piece of valdez, soft tissue measuring 0.4 x 0.3 x 0.2 cm. Totally submitted in one cassette. C. Esophagus, Distal, Biopsy Received in formalin is one piece of valdez, soft tissue measuring 0.3 x 0.3 x 0.2 cm. Totally submitted in one cassette. D. Esophagus, Mid, Biopsy Received in formalin are two pieces of valdez, soft tissue aggregating to 0.8 x 0.3 x 0.2 cm. Totally submitted in one cassette. E. Small Bowel, Terminal Ileum, Biopsy Received in formalin is one piece of valdez, soft tissue measuring 0.3 x 0.2 x 0.2 cm. Totally submitted in one cassette. F. Colon, Ascending, Biopsy Received in formalin are two pieces of valdez, soft tissue aggregating to 0.7 x 0.3 x 0.2 cm. Totally submitted in one cassette. G. Colon, Descending, Polyp Received in formalin are two pieces of valdez, soft tissue aggregating to 0.9 x 0.2 x 0.2 cm. Totally submitted in one cassette. H. Colon, Cecum, Polyp Received in formalin is one piece of valdez, soft tissue measuring 0.4 x 0.2 x 0.2 cm. Totally submitted in one cassette. SS August 14, 2023 11:23 PM Gross examination performed at [facility], [address] [place] [address] Performed By: #### S #### [facility] CLIA [id number] [address] [id number] [place] Upper GI endoscopyon 08-13-2 024 Upper GI endoscopy [facility] Gastrointestinal Endoscopy Patient Name: Valeriano Cross Procedure Date: 08/14/2023 11:49 AM Date of : 1945 Admit Type: Outpatient Age: 77 Gender: Female Note Status: Finalized Procedure: Upper GI endoscopy Indications: Abdominal bloating Providers: Eriberto Kimball MD Patient Profile: This is a 77 year old female. Refer to note in patient chart for documentation of history and physical. Referring Physician: Carmen Willis (pa) (Referring ), Katt Ramsay (Referring ) Medicines: Midazolam 4 mg IV, Fentanyl 75 micrograms IV Complications: No immediate complications. Requesting Provider: Procedure: Pre-Anesthesia Assessment: - Prior to the procedure, a History and Physical was performed, and patient medications and allergies were reviewed. The patient is competent. The risks and benefits of the procedure and the sedation options and risks were discussed with the patient. All questions were answered and informed consent was obtained. Patient identification and proposed procedure were verified by the physician and the nurse in the procedure room. Mental Status Examination: alert and oriented. Respiratory Examination: clear to auscultation. Prophylactic Antibiotics: The patient does not require prophylactic antibiotics. Prior Anticoagulants: The patient has taken no anticoagulant or antiplatelet agents. ASA Grade Assessment: III - A patient with severe systemic disease. After reviewing the risks and benefits, the patient was deemed in satisfactory condition to undergo the procedure. The anesthesia plan was to use moderate sedation / analgesia (conscious sedation). Immediately prior to administration of medications, the patient was re-assessed for adequacy to receive sedatives. The heart rate, respiratory rate, oxygen saturations, blood pressure, adequacy of pulmonary ventilation, and response to care were monitored throughout the procedure. The physical status of the patient was re-assessed after the procedure. After obtaining informed consent, the endoscope was passed under direct vision. Throughout the procedure, the patient's blood pressure, pulse, and oxygen saturations were monitored continuously. The Endoscope was introduced through the mouth, and advanced to the jejunum. The upper GI endoscopy was accomplished without difficulty. The patient tolerated the procedure well. Moderate Sedation: Moderate (conscious) sedation was personally administered by the endoscopist. The following parameters were monitored: oxygen saturation, heart rate, blood pressure, and response to care. Total physician intraservice time was 26 minutes. The administration of moderate sedation was initiated at 11:57 AM. Findings: The examined jejunum was normal. Biopsies for histology were taken with a cold forceps for evaluation of celiac disease. The examined duodenum was normal. The entire examined stomach was normal. Biopsies were taken with a cold forceps for histology. Mildly severe esophagitis with no bleeding was found in the lower third of the esophagus. Biopsies were taken with a cold forceps for histology. The middle third of the esophagus was normal. Biopsies were taken with a cold forceps for histology. Biopsies were taken with a cold forceps for histology. Impression: - Normal examined jejunum. Biopsied. - Normal examined duodenum. - Normal stomach. Biopsied. - Mildly severe reflux esophagitis with no bleeding. Biopsied. - Normal middle third of esophagus. Biopsied. Recommendation: - Discharge patient to home. - Resume previous diet. - Continue present medications. - Await pathology results. - Telephone my office for pathology results in 1 week. Procedure Code(s): --- Professional --- 76735, Esophagogastroduodeno scopy, flexible, transoral; with biopsy, single or multiple G0500, Moderate sedation services provided by the same physician or other qualified health point of care specialist performing a gastrointestinal endoscopic service that sedation supports, requiring the presence of an independent trained observer to assist in the monitoring of the patient's level of consciousness and physiological status; initial 15 minutes of intra-service time; patient age 5 years or older (additional time may be reported with 83959, as appropriate) [address]9831, Moderate sedation; each additional 15 minutes intraservice time CPT copyright 2020 [employer]. All rights reserved. The codes documented in this report are preliminary and upon electronic warfare specialist review may be revised to meet current compliance requirements. Attending Participation: I was present and participated during the entire procedure, including non-espinal portions, and during the administration and monitoring of Moderate Sedation. Scope In: 11:59:23 AM Scope Out: 12:05:06 PM MD Eriberto Kay MD (more content not included)... Normal [facility] TAYVALERIANO ([id number]) 1945 F Date Time Provider Department 08/06/23 ERIBERTO KIMBALL During your visit today, we recorded the following information about you: Eriberto Kimball MD 08/06/2023 5:43 PM Signed Refill golytely Allergies As of Date: 08/06/2023 Noted Allergy Reaction BACLOFEN 04/20/2020 1 - Mental Status Change PRILOSEC (OMEPRAZOLE MAGNESIUM) 12/09/2013 14 - Other: See Comments Comments: burn type TESSALON (BENZONATATE) 12/24/2013 7 - Swelling Comments: Swelling of tongue Date Reviewed: 05/14/2023 Reviewed by: Tejinder Cha MA - Fully Assessed Order(s):peg 3350-Electrolytes (GOLYTELY) 236-22.74-6.74 -5.86 gram suspensionTake 4,000 mL by mouth one time only for 1 dose.Disp: 1 EachRfl: 0 Prescriptions as of 08/06/2023 - peg 3350-Electrolytes (GOLYTELY) 236-22.74-6.74 -5.86 gram suspension Take 4,000 mL by mouth one time only for 1 dose. - finerenone (KERENDIA) 20 mg tablet Take 20 mg by mouth once daily. - ezetimibe-atorvastati n 10-10 mg tab Take 10 mg by mouth once daily. - BIOTIN ORAL Take by mouth. - gluc marion/chondro marion A/vit C/Mn (GLUCOSAMINE 1500 COMPLEX ORAL) Take by mouth. - diclofenac sodium (VOLTAREN) 1 % topical gel Apply to affected area four times daily. - TURMERIC ORAL Take by mouth. - Vitamin D3-Menaquinone 7 1000-90 unit-mcg ODT Take by mouth. - Vitamin E, dl, acetate, 1,000 unit capsule Take 1,000 Units by mouth once daily. - beta-carotene,A,-vits C,E/mins (OCUVITE ORAL) Take by mouth. - guaiFENesin (MUCINEX) 600 mg 12 hr tablet Take 2 tablets by mouth twice daily. - benzonatate (TESSALON PERLES) 100 mg capsule Take 1 capsule by mouth three times daily as needed. - albuterol HFA (PROVENTIL HFA, VENTOLIN HFA) 90 mcg/actuation inhaler Inhale 2 Puffs as instructed every 4 hours as needed. - lisinopril (ZESTRIL, PRINIVIL) 20 mg tablet TAKE 1 TABLET BY MOUTH ONCE DAILY. - glipiZIDE XL (GLUCOTROL XL) 2.5 mg 24 hr tablet TAKE 1 TABLET BY MOUTH ONCE DAILY. - ALPRAZolam (XANAX) 0.25 mg tablet Take 1 tablet by mouth once daily as needed for Anxiety. - simvastatin (ZOCOR) 20 mg tablet Take 1 tablet by mouth daily at bedtime. - axoxsk-qitujveg-trvti se (ZENPEP) 5,000-17,000 -27,000 unit cpDR 1 capsule by mouth 5 times/day - pantoprazole DR (PROTONIX) 40 mg tablet Take 1 tablet by mouth once daily. - magnesium oxide (MAG-OX) 400 mg tablet Take 1 tablet by mouth once daily. - Chromium Picolinate 200 mcg cap Take by mouth. - vit V-pyiqwxd-olkb-rutin- hb196 (BIOFLEX) 771-00-36-40 mg tab Take by mouth. - ascorbic acid (VITAMIN C) 500 mg tablet Take 1 tablet by mouth once daily. Pt takes 2000 mg daily - Cinnamon Bark 500 mg cap Take by mouth. - Ginkgo Biloba (GINKGO) 60 mg tab Take by mouth. - metoclopramide HCl (REGLAN) 5 mg tablet Take 1 tablet by mouth four times daily. - nitroglycerin sublingual (NITROQUICK) 0.4 mg SL tablet Dissolve 1 tablet under the tongue as needed for Chest Pain. - aspirin, enteric coated 81 mg EC tablet Take 81 mg by mouth once daily. Meds Comments as of 05/03/2012: No daily medications Problem List As Of Date 08/06/2023 Noted Resolved Nausea AND vomiting [R11.2] 12/16/2013 Abdominal pain [R10.9] 12/24/2013 Hypertension [I10] 12/25/2013 Urinary tract infection [N39.0] 12/25/2013 06/29/2014 CAD (coronary artery disease) [I25.10] 12/25/2013 DVT prophylaxis [CAN3969] 12/25/2013 06/29/2014 GERD (gastroesophageal reflux disease) [K21.9] 12/25/2013 Anxiety [F41.9] 12/28/2013 Presence of stent in coronary artery [Z95.5] 02/03/2014 Magnesium deficiency [E61.2] 02/03/2014 Uncontrolled diabetes mellitus with eye complic*06/29/2014 05/20/2015 Osteoporosis [M81.0] 07/08/2014 Type 2 diabetes, uncontrolled, with gastropares* 5 05/20/2015 Vitamin D deficiency [E55.9] 07/15/2014 Type 2 diabetes mellitus with diabetic retinopa*05/20/2015 Well controlled type 2 diabetes mellitus with g*05/20/2015 Hyperlipidemia LDL goal <100 [E78.5] 05/20/2015 Irritable bowel syndrome without diarrhea [K58.*05/20/2015 Trigger middle finger [M65.339] 05/20/2015 Type 2 diabetes mellitus with microalbuminuria *05/21/2015 Prescriptions ordered this encounter Disp Refills Start End PEG 3350-ELECTROLYTES 236 GRAM-22.74* 1 Ea* 0 08/06/2023 08/06/2023 Route: ORAL Sig: Take 4,000 mL by mouth one time only for 1 dose. Encounter Status:Closed by ERIBERTO KIMBALL on 08/06/23 Normal [facility] Basophil percentageOrdered B y: David Medina on 07-24-2023 Chloride [Moles/Vol] 105 mmol/L 98-107 [facility] Glucose [Mass/Vol] 280 mg/dL 74-106 [facility] Comment on above: Glucose result great er than or equal to 200 mg/dLsuggests DIABETES MELLITUS per A.D.A. criteria. Potassium [Moles/Vol] 4.4 mmol/L 3.5-5.1 [facility] Sodium [Moles/Vol] 135 mmol/L 136-145 [facility] Laboratory - Chemistry and C hemistry - challengeOrdered By: David Medina on 07-24-2023 CO2 [Moles/Vol] 23.0 mmol/L 21.0-32.0 [facility] Urea nitrogen/Creatinine [Mass ratio] 29.8 mg/mg 10-20 [facility] No Panel InformationOrdered By: David Medina on 07-24-2023 Estimated GFR (MDRD) Amer 47 mL/min >60 [facility] Comment on above: GFR Calc Estimated GFR (MDRD) Non-Af Amer 39 mL/min >60 [facility] Comment on above: Non- GFR Calc Serum or plasma calcium francie urement (mass/volume)Ordered By: David Medina on 07-24-2023 Calcium [Mass/Vol] 10.6 mg/dL 8.5-10.1 [facility] Serum or plasma creatinine m easurement (mass/volume)Ordered By: David Medina on 07-24-2023 Creatinine [Mass/Vol] 1.41 mg/dL 0.55-1.02 [facility] Comment on above: The validity of the calculated GFR & GFRAA in patients over 70 years has not been determined. Clinical correlation is essential. Serum or plasma urea nitroge n measurement (mass/volume)Ordered By: David Medina on 07-24-2023 Urea nitrogen [Mass/Vol] 42 mg/dL 7-18 [facility] Thin prep Papanicolaou smear with manual screeningOrdered By: David Medina on 07-24-2023 Thin prep Papanicolaou smear with manual screening 7 5-15 [facility] Amorphous sediment detection in urine sediment by light microscopyOrdered By: Darek Talavera on 07-16-2023 Amorphous sediment LM Ql (Urine sed) 1+ URATE [facility] Basophil percentageOrdered B y: Darek Talavera on 07-16-2023 Basophil percentage 50-100 SEEN /hpf 0-5 [facility] Bilirubin Test strip Ql (U)O rdered By: Darek Talavera on 07-16-2023 Bilirubin Ql (U) Negative Negative [facility] Culture, urineOrdered By: St erwin Talavera on 07-16-2023 Bacteria identified Cx Nom (U) Escherichia coli [facility] Ketones Test strip Ql (U)Ord ered By: Darek Talavera on 07-16-2023 Ketones Ql (U) Negative Negative [facility] Laboratory - Chemistry and C hemistry - challengeon 07-16-2023 Bilirubin Ql (U) Negative [facility] Glucose Ql (U) Negative [facility] Ketones Ql (U) Negative [facility] pH (U) 5.0 [pH] [facility] Specific gravity (U) [Rel density] 1.015 [facility] Urobilinogen (U) [Mass/Vol] Negative [facility] Laboratory - Hematology and Cell countson 07-16-2023 Hemoglobin Ql (U) Trace [facility] Laboratory - Specimen inform ationon 07-16-2023 Clarity (U) Cloudy [facility] Color (U) YELLOW [facility] Laboratory - Urinalysison Nitrite Ql (U) Positive [facility] Protein Ql (U) Negative [facility] Mucus LM Ql (Urine sed)Order ed By: Darek Talavera on 07-16-2023 Mucus Ql (Urine sed) 0 SEEN /hpf [facility] Nitrite Test strip Ql (U)Ord ered By: Darek Talavera on 07-16-2023 Nitrite Ql (U) Positive Negative [facility] No Panel InformationOrdered By: Darek Talavera on 07-16-2023 Urine RBC 0-5 SEEN /hpf 0-5 [facility] No Panel Informationon 07-15 Urine Leukocytes Positive [facility] Urine Non-Hemolyzed Blood Non-Hemolyzed [facility] Protein Test strip Ql (U)Ord ered By: Darek Talavera on 07-16-2023 Protein Ql (U) 100 mg/dl Negative [facility] Squamous epithelial cells de tection in urine sediment by light microscopyOrdered By: Darek Talavera on 07-16-2023 Epithelial cells.squamous LM Ql (Urine sed) 0-5 SEEN /hpf 5-10 [facility] Urine blood detectionOrdered By: Darek Talavera on 07-16-2023 RBC Ql (U) 25 /ul Negative [facility] Urine clarityOrdered By: Jayy Talavera on 07-16-2023 Clarity (U) Sl. Cloudy Clear [facility] Urine color determinationOrd ered By: Darek Talavera on 07-16-2023 Color (U) Yellow Yellow [facility] Urine glucose detectionOrder ed By: Darek Talavera on 07-16-2023 Glucose Ql (U) 50 mg/dl Normal [facility] Urine leukocyte esterase det ection by dipstickOrdered By: Darek Talavera on 07-16-2023 Leukocyte esterase Test strip Ql (U) 500 /ul Negative [facility] Urine pHOrdered By: Darek calle on 07-16-2023 pH (U) 5.0 [pH] 5.0 - 8.0 [facility] Urine sediment bacteria coun t by microscopy (number/high power field)Ordered By: Darek Talavera on 07-16-2023 Bacteria LM.HPF (Urine sed) [#/Area] 3 /[HPF] None Seen [facility] Urine specific gravity measu rementOrdered By: Darek Talavera on 07-16-2023 Specific gravity (U) [Rel density] 1.015 1.002-1.030 [facility] Urine urobilinogen measureme ntOrdered By: Darek Talavera on 07-16-2023 Urobilinogen Ql (U) Normal mg/dl Normal [facility] Basophil percentageOrdered B y: David Medina on 06-20-2023 Chloride [Moles/Vol] 107 mmol/L 98-107 [facility] Glucose [Mass/Vol] 159 mg/dL 74-106 [facility] Comment on above: Fasting Glucose resu lt greater than or equal to 126 mg/dL suggests DIABETES MELLITUS per A.D.A. criteria. Potassium [Moles/Vol] 4.0 mmol/L 3.5-5.1 [facility] Sodium [Moles/Vol] 140 mmol/L 136-145 [facility] Bilirubin Test strip Ql (U)O rdered By: David Medina on 06-20-2023 Bilirubin Ql (U) Negative Negative [facility] Ketones Test strip Ql (U)Ord ered By: David Medina on 06-20-2023 Ketones Ql (U) Negative Negative [facility] Laboratory - Chemistry and C hemistry - challengeOrdered By: David Medina on 06-20-2023 CO2 [Moles/Vol] 25.0 mmol/L 21.0-32.0 [facility] Urea nitrogen/Creatinine [Mass ratio] 20.3 mg/mg 10-20 [facility] Nitrite Test strip Ql (U)Ord ered By: David Medina on 06-20-2023 Nitrite Ql (U) Positive Negative [facility] No Panel InformationOrdered By: David Medina on 06-20-2023 Estimated GFR (MDRD) Amer 50 mL/min >60 [facility] Comment on above: GFR Calc Estimated GFR (MDRD) Non-Af Amer 41 mL/min >60 [facility] Comment on above: Non- GFR Calc Protein Test strip Ql (U)Ord ered By: David Medina on 06-20-2023 Protein Ql (U) 100 mg/dl Negative [facility] Serum or plasma calcium francie urement (mass/volume)Ordered By: David Medina on 06-20-2023 Calcium [Mass/Vol] 10.2 mg/dL 8.5-10.1 [facility] Serum or plasma creatinine m easurement (mass/volume)Ordered By: David Medina on 06-20-2023 Creatinine [Mass/Vol] 1.33 mg/dL 0.55-1.02 [facility] Comment on above: The validity of the calculated GFR & GFRAA in patients over 70 years has not been determined. Clinical correlation is essential. Serum or plasma urea nitroge n measurement (mass/volume)Ordered By: David Medina on 06-20-2023 Urea nitrogen [Mass/Vol] 27 mg/dL 7-18 [facility] Thin prep Papanicolaou smear with manual screeningOrdered By: David Medina on 06-20-2023 Protein (U) [Mass/Vol] 58.1 mg/dL 0.0-11.8 [facility] Thin prep Papanicolaou smear with manual screening 8 5-15 [facility] Urine blood detectionOrdered By: David Medina on 06-20-2023 RBC Ql (U) 50 /ul Negative [facility] Urine clarityOrdered By: Jeff Medina on 06-20-2023 Clarity (U) Cloudy Clear [facility] Urine color determinationOrd ered By: David Medina on 06-20-2023 Color (U) Yellow Yellow [facility] Urine creatinine measurement (mass/volume)Ordered By: David Medina on 06-20-2023 Creatinine (U) [Mass/Vol] 31.90 mg/dL NO RANGE EST. [facility] Urine glucose detectionOrder ed By: David Medina on 06-20-2023 Glucose Ql (U) Normal mg/dl Normal [facility] Urine leukocyte esterase det ection by dipstickOrdered By: David Medina on 06-20-2023 Leukocyte esterase Test strip Ql (U) 500 /ul Negative [facility] Urine pHOrdered By: Alex Medina on 06-20-2023 pH (U) 6.0 [pH] 5.0 - 8.0 [facility] Urine protein/creatinine mas s ratioOrdered By: David Medina on 06-20-2023 Protein/Creatinine (U) [Mass ratio] 1821 mg/g CRE 0-200 [facility] Urine specific gravity measu rementOrdered By: David Medina on 06-20-2023 Specific gravity (U) [Rel density] 1.010 1.002-1.030 [facility] Urine urobilinogen measureme ntOrdered By: David Medina on 06-20-2023 Urobilinogen Ql (U) Normal mg/dl Normal [facility] CNPNon 06-01-2023 CNPN Telephone ([employer]) VALERIANO CROSS ([id number]) 1945 F Date Time Provider Department 06/01/23 ERIBERTO KIMBALL During your visit today, we recorded the following information about you: Elke Weinstein 06/01/2023 3:25 PM Signed Patient has been scheduled at [facility] for her colonoscopy AND EGD 05-29-2023 but had to be cancelled due to being hospitalized. She had a catheter placed which is now removed and she is seeing Dr. Medina on [place] on June. We told patient we will call her to reschedule the procedures once we get clearance. Patient is ok if we talk to her daughter Valeriano @ [phone] [facility] Js Ericka Sim 06/28/2023 3:18 PM Addendum Patient came in and stopped by the front office secretary asking if she can be scheduled for upper and lower scopes here in [facility] with Dr. Kimball Patient stated since seeing Carmen Willis in April she has had to have a catheter placed 3 separate times due to not being able to empty her bladder. Patient stated her GI symptoms of not of not being able to have a bowel movement have worsened and is wanting to know what she can do. Patient stated her kidney doctor would not "release me until I see him next" patient stated her next appointment was in July. No clearance forms received Dr. Kimball please review if patient can proceed with scheduling or if she needs to be re-evaluated to be done here at the [facility] and advise next step for patient Ericka Roney Ethanol Operations Manager Please note there is a following encounter regarding the attempts to schedule and complete scopes for patient from 04/26/2023 (day after consult with Carmen Willis) Daniela Cole, ROBIN 06/29/2023 9:22 AM Signed Received phone call from patient's daughter, Valeriano Rob. 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 Medina ([facility] office) has cleared her to schedule EGD and Colonoscopy. Advised her that our office would contact her with next steps once advised by Dr. Kimball. She verbalized understanding. Ericka Sim 06/29/2023 11:32 AM Signed Clearance forms faxed to propulsion machinery service engineer Dr. Medina - [facility] office See scanned docs. Awaiting clearance to be sent back on regards to scheduling scopes Ericka Sim 07/17/2023 9:55 AM Signed Clearance forms refaxed. 2nd attempt for response Ericka Sim Ethanol Operations Manager Ericka Sim 07/25/2023 11:04 AM Addendum Clearance received. Per Dr. Medina patient is cleared to proceed. Please advise if patient needs to be done in [facility] or [facility]? See scanned doc Ericka Sim 07/25/2023 11:23 AM Signed Eriberto Kimball MD You Just now (11:19 AM) [facility] is fine Ericka Sim 07/25/2023 11:23 AM Signed Patient scheduled in [facility] with Dr. Kimball 08/28/2023 Allergies As of Date: 06/01/2023 Noted Allergy Reaction BACLOFEN 04/20/2020 1 - Mental Status Change PRILOSEC (OMEPRAZOLE MAGNESIUM) 12/09/2013 14 - Other: See Comments Comments: burn type TESSALON (BENZONATATE) 12/24/2013 7 - Swelling Comments: Swelling of tongue Date Reviewed: 05/14/2023 Reviewed by: Tejinder Cha MA - Fully Assessed Reason for Visit: Appointment [186] 08/28/2023 colon.egd asc [Other] Prescriptions as of 08/20/2023 - finerenone (KERENDIA) 20 mg tablet Take 20 mg by mouth once daily. - ezetimibe-atorvastati n 10-10 mg tab Take 10 mg by mouth once daily. - BIOTIN ORAL Take by mouth. - gluc marion/chondro marion A/vit C/Mn (GLUCOSAMINE 1500 COMPLEX ORAL) Take by mouth. - diclofenac sodium (VOLTAREN) 1 % topical gel Apply to affected area four times daily. - TURMERIC ORAL Take by mouth. - Vitamin D3-Menaquinone 7 1000-90 unit-mcg ODT Take by mouth. - Vitamin E, dl, acetate, 1,000 unit capsule Take 1,000 Units by mouth once daily. - beta-carotene,A,-vits C,E/mins (OCUVITE ORAL) Take by mouth. - guaiFENesin (MUCINEX) 600 mg 12 hr tablet Take 2 tablets by mouth twice daily. - benzonatate (TESSALON PERLES) 100 mg capsule Take 1 capsule by mouth three times daily as needed. - albuterol HFA (PROVENTIL HFA, VENTOLIN HFA) 90 mcg/actuation inhaler Inhale 2 Puffs as instructed every 4 hours as needed. - lisinopril (ZESTRIL, PRINIVIL) 20 mg tablet TAKE 1 TABLET BY MOUTH ONCE DAILY. - glipiZIDE XL (GLUCOTROL XL) 2.5 mg 24 hr tablet TAKE 1 TABLET BY MOUTH ONCE DAILY. - ALPRAZolam (XANAX) 0.25 mg tablet Take 1 tablet by mouth once daily as needed for Anxiety. - simvastatin (ZOCOR) 20 mg tablet Take 1 tablet by mouth daily at bedtime. - rgjpsc-tgijtztt-ycscc se (ZENPEP) 5,000-17,000 -27,000 unit cpDR 1 capsule by mouth 5 times/day - pantoprazole DR (PROTONIX) 40 mg tablet Take 1 tablet by mouth once daily. - magnesium oxide (MAG-OX) 400 mg tablet Take 1 tablet by mouth once daily. - Chromium Picolinate 200 mcg cap Take by mouth. - vit E-onlulcf-xmtq-rutin- hb196 (BIOFLEX) (more content not included)... Normal [facility] CNOVon 05-14-2023 CNOV Office Visit (DESIREE ) TAYVALERIANO ([id number]) 1945 F Date Time Provider Department 05/14/23 1:45 PM MELLY CARTAGENA During your visit today, we recorded the following information about you: Pulse Weight Height 67/minute 59 kg 1.499 m Melly Cartagena PA-C 05/14/2023 2:06 PM Signed ESTABLISHED PATIENT OFFICE VISIT HISTORY OF PRESENT ILLNESS: Valeriano Cross is a 77 year old female, Ht 149.9 cm (4' 11") BMI 26.26 kg/m2 with a PMH significant for pvr check. Pt removed catheter this am, has voided 3 times, feels well. Pvr 1cc. LAB: Creatinine Date Value Ref Range Status 12/02/2015 1.02 0.70 - 1.40 mg/dL Final No results found for: PSA Glucose, Urine Date Value 04/26/2023 Negative 08/29/2014 Negative mg/dL Bilirubin, Urine (no units) Date Value 04/26/2023 Negative 08/29/2014 Negative Ketones, Urine (no units) Date Value 04/26/2023 Negative 08/29/2014 Negative Specific [place], Ur (no units) Date Value 04/26/2023 1.018 08/29/2014 1.017 Hemoglobin/Blood,Ur Date Value 04/26/2023 1+ 08/29/2014 2+ pH, Urine (no units) Date Value 04/26/2023 5.5 08/29/2014 5.0 Protein, Urine Date Value 04/26/2023 3+ 08/29/2014 100 mg/dL Nitrites (no units) Date Value 04/26/2023 Negative 08/29/2014 Negative WBC, Urine Date Value 04/26/2023 11-20 /HPF 08/29/2014 >25 /HPF MEDICATIONS: finerenone (KERENDIA) 20 mg tablet Take 20 mg by mouth once daily. ezetimibe-atorvastati n 10-10 mg tab Take 10 mg by mouth once daily. BIOTIN ORAL [...] twice daily. (Patient not taking: Reported on 05/17/2020) benzonatate (TESSALON PERLES) 100 mg capsule Take 1 capsule by mouth three times daily as needed. (Patient not taking: Reported on 05/17/2020) albuterol HFA (PROVENTIL HFA, VENTOLIN HFA) 90 mcg/actuation inhaler Inhale 2 Puffs as instructed every 4 hours as needed. (Patient not taking: Reported on 05/17/2020) lisinopril (ZESTRIL, PRINIVIL) 20 mg tablet TAKE 1 TABLET BY MOUTH ONCE DAILY. glipiZIDE XL (GLUCOTROL XL) 2.5 mg 24 hr tablet TAKE 1 TABLET BY MOUTH ONCE DAILY. (Patient taking differently: Take 5 mg by mouth once daily.) ALPRAZolam (XANAX) 0.25 mg tablet Take 1 tablet by mouth once daily as needed for Anxiety. simvastatin (ZOCOR) 20 mg tablet Take 1 tablet by mouth daily at bedtime. (Patient not taking: Reported on 07/10/2018) zmzazi-ntyawkel-miybm se (ZENPEP) 5,000-17,000 -27,000 unit cpDR 1 capsule by mouth 5 times/day (Patient not taking: Reported on 07/10/2018) pantoprazole DR (PROTONIX) 40 mg tablet Take 1 tablet by mouth once daily. (Patient not taking: Reported on 07/10/2018) magnesium oxide (MAG-OX) 400 mg tablet Take 1 tablet by mouth once daily. (Patient not taking: Reported on 05/07/2023) Chromium Picolinate 200 mcg cap Take by mouth. (Patient not taking: Reported on 05/07/2023) vit P-ittybml-flgb-rutin- hb196 (BIOFLEX) 094-23-32-40 mg tab Take by mouth. ascorbic acid (VITAMIN C) 500 mg tablet Take 1 tablet by mouth once daily. Pt takes 2000 mg daily Cinnamon Bark 500 mg cap Take by mouth. Ginkgo Biloba (GINKGO) 60 mg tab Take by mouth. (Patient not taking: Reported on 05/07/2023) metoclopramide HCl (REGLAN) 5 mg tablet Take 1 tablet by mouth four times daily. (Patient not taking: Reported on 07/10/2018) nitroglycerin sublingual (NITROQUICK) 0.4 mg SL tablet Dissolve 1 tablet under the tongue as needed for Chest Pain. aspirin, enteric coated 81 mg EC tablet Take 81 mg by mouth once daily. Review of Systems HISTORIES PAST MEDICAL HISTORY Diagnosis Date Abdominal pain [...] with eye complications 06/29/2014 Vitamin D deficiency FAMILY HISTORY Problem Relation Age of Onset Diabetes Sister Heart Father Heart Sister Heart Brother Social History Tobacco Use Smoking status: Former Packs/day: 2.00 Years: 25.00 Additional pack years: 0.00 Total pack years: 50.00 Types: C (more content not included)... Normal [facility] CNOVon 05-07-2023 CNOV Office Visit (AKURFL ) VALERIANO CROSS ([id number]) 1945 F Date Time Provider Department 05/07/23 10:00 AM MELLY CARTAGENA During your visit today, we recorded the following information about you: Pulse Weight Height 107/minute 59 kg 1.499 m Melly Cartagena PA-C 05/07/2023 12:37 PM Signed NEW PATIENT HISTORY AND PHYSICAL EXAM PATIENT INFO: Valeriano Cross 77 year old REFERRING PROVIDER: ERIBERTO HUFF PCP YANELIS LEDESMA MARK JOSEPH PCP: Katt Ramsay MD HPI Valeriano Cross is a 77 year old female with urinary retention secondary to shingles. Pt with lim catheter. Clear urine in drainage bag. First episode of urinary retention. Discussed plan. Pt is having bowel movements. Review of Systems LAB: Creatinine Date Value Ref Range Status 12/02/2015 1.02 0.70 - 1.40 mg/dL Final No results found for: PSA Glucose, Urine Date Value 04/26/2023 Negative 08/29/2014 Negative mg/dL Bilirubin, Urine (no units) Date Value 04/26/2023 Negative 08/29/2014 Negative Ketones, Urine (no units) Date Value 04/26/2023 Negative 08/29/2014 Negative Specific [place], Ur (no units) Date Value 04/26/2023 1.018 08/29/2014 1.017 Hemoglobin/Blood,Ur Date Value 04/26/2023 1+ 08/29/2014 2+ pH, Urine (no units) Date Value 04/26/2023 5.5 08/29/2014 5.0 Protein, Urine Date Value 04/26/2023 3+ 08/29/2014 100 mg/dL Nitrites (no units) Date Value 04/26/2023 Negative 08/29/2014 Negative WBC, Urine Date Value 04/26/2023 11-20 /HPF 08/29/2014 >25 /HPF MEDICATIONS: finerenone (KERENDIA) 20 mg tablet Take 20 mg by mouth once daily. ezetimibe-atorvastati n 10-10 mg tab Take 10 mg by mouth once daily. BIOTIN ORAL [...] beta-carotene,A,-vits C,E/mins (OCUVITE ORAL) Take by mouth. lisinopril (ZESTRIL, PRINIVIL) 20 mg tablet TAKE 1 TABLET BY MOUTH ONCE DAILY. glipiZIDE XL (GLUCOTROL XL) 2.5 mg 24 hr tablet TAKE 1 TABLET BY MOUTH ONCE DAILY. (Patient taking differently: Take 5 mg by mouth once daily.) ALPRAZolam (XANAX) 0.25 mg tablet Take 1 tablet by mouth once daily as needed for Anxiety. vit J-ugstguz-iuak-rutin- hb196 (BIOFLEX) 148-35-25-40 mg tab Take by mouth. ascorbic acid (VITAMIN C) 500 mg tablet Take 1 tablet by mouth once daily. Pt takes 2000 mg daily Cinnamon Bark 500 mg cap Take by mouth. nitroglycerin sublingual (NITROQUICK) 0.4 mg SL tablet Dissolve 1 tablet under the tongue as needed for Chest Pain. aspirin, enteric coated 81 mg EC tablet Take 81 mg by mouth once daily. guaiFENesin (MUCINEX) 600 mg 12 hr tablet Take 2 tablets by mouth twice daily. (Patient not taking: Reported on 05/17/2020) benzonatate (TESSALON PERLES) 100 mg capsule Take 1 capsule by mouth three times daily as needed. (Patient not taking: Reported on 05/17/2020) albuterol HFA (PROVENTIL HFA, VENTOLIN HFA) 90 mcg/actuation inhaler Inhale 2 Puffs as instructed every 4 hours as needed. (Patient not taking: Reported on 05/17/2020) simvastatin (ZOCOR) 20 mg tablet Take 1 tablet by mouth daily at bedtime. (Patient not taking: Reported on 07/10/2018) iooidz-jzkdhnta-dslpc se (ZENPEP) 5,000-17,000 -27,000 unit cpDR 1 capsule by mouth 5 times/day (Patient not taking: Reported on 07/10/2018) pantoprazole DR (PROTONIX) 40 mg tablet Take 1 tablet by mouth once daily. (Patient not taking: Reported on 07/10/2018) magnesium oxide (MAG-OX) 400 mg tablet Take 1 tablet by mouth once daily. (Patient not taking: Reported on 05/07/2023) Chromium Picolinate 200 mcg cap Take by mouth. (Patient not taking: Reported on 05/07/2023) Ginkgo Biloba (GINKGO) 60 mg tab Take by mouth. (Patient not taking: Reported on 05/07/2023) metoclopramide HCl (REGLAN) 5 mg tablet Take 1 tablet by mouth four times daily. 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 Normal [facility] Absolute lymphocyte countOrd ered By: Stephen Baeza on 05-03-2023 Lymphocytes Auto (Unsp spec) [#/Vol] 2.32 10*3/uL 0.83-4.51 [facility] Activated partial thrombopla stin time (aPTT) in platelet poor plasma by coagulation aOrdered By: Stephen Leonene on 05-03-2023 aPTT Coag (PPP) [Time] 25.3 s 24.1-36.2 [facility] Automated lymphocyte count a s percentage of total leukocytesOrdered By: Stephen Calhounehne on 05-03-2023 Lymphocytes/100 WBC Auto (Unsp spec) 26.3 % 19-41 [facility] Basophil percentageOrdered B y: Stephen Felisha on 05-03-2023 Basophil percentage 0-5 SEEN /hpf 0-5 [facility] Basophils/100 WBC (Bld) 1.9 % 0-1 [facility] Bilirubin [Mass/Vol] 0.30 mg/dL 0.20-1.00 [facility] Comment on above: For patients on eltr ombopag therapy, use of Dimension [place] TBIL is not recommended. Chloride [Moles/Vol] 104 mmol/L 98-107 [facility] Eosinophils/100 WBC (Bld) 1.4 % 0-5 [facility] Glucose [Mass/Vol] 218 mg/dL 74-106 [facility] Comment on above: Glucose result great er than or equal to 200 mg/dLsuggests DIABETES MELLITUS per A.D.A. criteria. Hemoglobin (Bld) [Mass/Vol] 10.9 g/dL 12.0-15.0 [facility] Monocytes/100 WBC (Bld) 7.8 % 0-10 [facility] Neutrophils (Bld) [#/Vol] 5.5 10*3/uL 2.0-7.7 [facility] Neutrophils/100 WBC (Bld) 62.0 % 47-70 [facility] Potassium [Moles/Vol] 5.1 mmol/L 3.5-5.1 [facility] Protein [Mass/Vol] 7.0 g/dL 6.4-8.2 [facility] Sodium [Moles/Vol] 135 mmol/L 136-145 [facility] WBC (Bld) [#/Vol] 8.8 10*3/uL 4.4-11.0 [facility] Bilirubin Test strip Ql (U)O rdered By: Stephen Baeza on 05-03-2023 Bilirubin Ql (U) Negative Negative [facility] Determination of erythrocyte mean corpuscular volume (MCV)Ordered By: Stephen Baeza on 05-03-2023 MCV (RBC) [Entitic vol] 89.7 fL 81-99 [facility] Erythrocyte distribution wid th ratioOrdered By: Stephen Baeza on 05-03-2023 Erythrocyte distribution width (RBC) [Ratio] 12.0 % 11.6-14.6 [facility] Erythrocyte distribution wid th standard deviationOrdered By: Stephen Baeza on 05-03-2023 Erythrocyte distribution width (RBC) [Entitic vol] 38.3 fL 35.1-43.9 [facility] Hematocrit Auto (Bld) [Volum e fraction]Ordered By: Stephen Baeza on 05-03-2023 Hematocrit (Bld) [Volume fraction] 33.1 % 37-47 [facility] Immature granulocytes/100 WB C Auto (Bld)Ordered By: Stephen Baeza on 05-03-2023 Immature granulocytes/100 WBC (Bld) 0.600 % 0.0-0.9 [facility] Comment on above: IG% - Immature Granu locytes (promyelocytes, myelocytes and metamyelocytes) > 1% indicates that a LEFT SHIFT is Present. International normalized rat io (INR) calculationOrdered By: Stephen Baeza on 05-03-2023 INR Coag (PPP) [Relative time] 1.1 {INR} [facility] Ketones Test strip Ql (U)Ord ered By: Stephen Baeza on 05-03-2023 Ketones Ql (U) Negative Negative [facility] - Chemistry and C hemistry - challengeOrdered By: Stephen Baeza on 05-03-2023 Albumin/Globulin [Mass ratio] 1.1 {ratio} 0.9-2.4 [facility] ALP [Catalytic activity/Vol] 122 U/L 45-117 [facility] ALT [Catalytic activity/Vol] 19 U/L 13-56 [facility] CO2 [Moles/Vol] 24.0 mmol/L 21.0-32.0 [facility] Globulin (S) [Mass/Vol] 3.3 g/dL 2.2-4.2 [facility] Urea nitrogen/Creatinine [Mass ratio] 23.2 mg/mg 10-20 [facility] - CoagulationOrde red By: Stephen Baeza on 05-03-2023 PT Coag (PPP) [Time] 14.0 s 11.7-14.9 [facility] Laboratory - Hematology and Cell countsOrdered By: Stephen Baeza on 05-03-2023 MCH (RBC) [Entitic mass] 29.5 pg 27.0-32.0 [facility] MCHC (RBC) [Mass/Vol] 32.9 g/dL 32-36 [facility] Nucleated RBC/100 WBC (Bld) [Ratio] 0 % 0-5 [facility] Platelets (Bld) [#/Vol] 323 10*3/uL 150-450 [facility] Mucus LM Ql (Urine sed)Order ed By: Stephen Baeza on 05-03-2023 Mucus Ql (Urine sed) 0 SEEN /hpf [facility] Nitrite Test strip Ql (U)Ord ered By: Stephen Baeza on 05-03-2023 Nitrite Ql (U) Negative Negative [facility] No Panel InformationOrdered By: Stephen Baeza on 05-03-2023 Urine RBC 0-5 SEEN /hpf 0-5 [facility] Estimated Creatinine Clearance Calc 20.16 ml/min [facility] Estimated GFR (MDRD) Amer 33 mL/min >60 [facility] Comment on above: GFR Calc Estimated GFR (MDRD) Non-Af Amer 27 mL/min >60 [facility] Comment on above: Non- GFR Calc Platelet mean volume [facility] (Bld) [Entitic vol]Ordered By: Stephen Baeza on 05-03-2023 Platelet mean volume (Bld) [Entitic vol] 10.4 fL 6.2-12.0 [facility] Protein Test strip Ql (U)Ord ered By: Stephen Baeza on 05-03-2023 Protein Ql (U) 100 mg/dl Negative [facility] RBC Auto (Bld) [#/Vol]Ordere d By: Stephen Baeza on 05-03-2023 RBC (Bld) [#/Vol] 3.69 10*6/uL 4.2-5.4 [facility] Serum or plasma calcium francie urement (mass/volume)Ordered By: Stephen Baeza on 05-03-2023 Calcium [Mass/Vol] 10.4 mg/dL 8.5-10.1 [facility] Serum or plasma creatinine m easurement (mass/volume)Ordered By: Stephen Baeza on 05-03-2023 Creatinine [Mass/Vol] 1.90 mg/dL 0.55-1.02 [facility] Comment on above: The validity of the calculated GFR & GFRAA in patients over 70 years has not been determined. Clinical correlation is essential. Serum or plasma urea nitroge n measurement (mass/volume)Ordered By: Stephen Baeza on 05-03-2023 Urea nitrogen [Mass/Vol] 44 mg/dL 10-31 [facility] Squamous epithelial cells de tection in urine sediment by light microscopyOrdered By: Stephen Baeza on 05-03-2023 Epithelial cells.squamous LM Ql (Urine sed) 0-5 SEEN /hpf 5-10 [facility] Thin prep Papanicolaou smear with manual screeningOrdered By: Stephen Baeza on 05-03-2023 Thin prep Papanicolaou smear with manual screening 3.7 g/dL 3.2-5.0 [facility] Thin prep Papanicolaou smear with manual screening 14 U/L 15-37 [facility] Thin prep Papanicolaou smear with manual screening 7 5-15 [facility] Urine blood detectionOrdered By: Stephen Baeza on 05-03-2023 RBC Ql (U) 10 /ul Negative [facility] Urine clarityOrdered By: Trevor Baeza on 05-03-2023 Clarity (U) Clear Clear [facility] Urine color determinationOrd ered By: Stephen Baeza on 05-03-2023 Color (U) Yellow Yellow [facility] Urine glucose detectionOrder ed By: Stephen Baeza on 05-03-2023 Glucose Ql (U) 100 mg/dl Normal [facility] Urine leukocyte esterase det ection by dipstickOrdered By: Stephen Baeza on 05-03-2023 Leukocyte esterase Test strip Ql (U) 25 /ul Negative [facility] Urine pHOrdered By: Stephen rogers on 05-03-2023 pH (U) 5.0 [pH] 5.0 - 8.0 [facility] Urine sediment bacteria coun t by microscopy (number/high power field)Ordered By: Stephen Baeza on 05-03-2023 Bacteria LM.HPF (Urine sed) [#/Area] 0 /[HPF] None Seen [facility] Urine sediment yeast count b y microscopy (number/high powered field)Ordered By: Stephen Baeza on 05-03-2023 Yeast LM.HPF (Urine sed) [#/Area] RARE /hpf None Seen [facility] Urine specific gravity measu rementOrdered By: Stephen Baeza on 05-03-2023 Specific gravity (U) [Rel density] 1.015 1.002-1.030 [facility] Urine urobilinogen measureme ntOrdered By: Stephen Baeza on 05-03-2023 Urobilinogen Ql (U) Normal mg/dl Normal [facility] Bacteria Ur Culton 4 Bacteria identified Cx Nom (U) CULTURE, URINE: No growth (<1,000 CFU/ml) Normal [facility] Comment on above: Performed By: #### S #### [facility] CLIA [id number] [address] [place] [address] [place] Brynn 04-26-2023 NICHOLE Telephone ([employer]) VALERIANO CROSS ([id number]) 1945 F Date Time Provider Department 04/26/23 CARMEN WILLIS During your visit today, we recorded the following information about you: Ericka Sim 04/27/2023 2:19 PM Addendum 05/29/2023 COLON/EGD Elke Faye 04/27/2023 2:12 PM Signed 04-27 Patient called in to have her Golytely Bowel Prep sent to [facility] in [place]. Patient also cancelled her appointment with Dr. Jaime, stating she was seen by Dr. Loredo urologist yesterday. Carmen Rosas PA-C 05/01/2023 11:04 AM Signed Per my result note from 04/27/23: URINALYSIS, REFLEX MICROSCOPIC: Result Notes Carmen Willis PA-C 04/27/2023 2:10 PM EST Results reviewed with Dr. Kimball. Numerous abnormalities noted in urine including presence of protein and casts, which is concerning regarding her kidney function. Patient should follow up with her propulsion machinery service engineer CHARLEEN (she had also been encouraged during visit to follow up with her propulsion machinery service engineer) and her PCP. Please fax result to her propulsion machinery service engineer. She should also keep her upcoming appointment with urology to discuss other findings in the urine. Patient needs to see nephrology as soon as possible, please emphasize this to her and please fax results to her propulsion machinery service engineer Amber Rubio RN 05/01/2023 11:51 AM Signed Carmen Willis's consultation note and Valeriano's urology results faxed to Dr. Lisa Martell at [phone], fax confirmation sheet received. Also left voicemail on Senait Rob's cell phone, Valeriano's daughter, encouraging them to schedule a follow up visit with Dr. Martell, prior to her regularly scheduled visit in September of 2023. Asked that if they had any additional questions, please contact our office. ROBIN Fishman Amanda, PA-C 05/03/2023 3:08 PM Signed Please send results to be PCP as well. Patient should have follow up within the next couple of weeks, please assist patient with facilitating these visits if needed Susan Poole, ROBIN 05/04/2023 10:14 AM Signed Received call from patient's daughter. States that that are continuing to have issues with her bladder and was in the ER yesterday unable to urinate and constipation. Daughter asking about plan for colonoscopy and the prep for it. States that someone had called in Mag [facility]. No order from [facility] noted for it and the daughter notified of this. Daughter reports that they had not made an appointment with Dr. Martell and this nurse re emphasized the need to see nephrology. Daughter also states that they have a urology appointment next week with a different doctor. Daughter asking for a return call regarding plan for colonoscopy. [phone] ROBIN Rodgers Billie, RN 05/04/2023 1:14 PM Signed Contacted Pt who asked me to contact her daughter Jordyn. Contact was made with Jordyn and recommendation given to Pt and Pt's daughter to see Nephrology CHARLEEN. I also educated Pt's daughter on the need to follow up with PCP. This Nurse then faxed urine results and office note from General Surgery visit to Dr. Butterfield's office requesting them to contact patient for an appointment and follow up to Nephrology.Elaine Wood RN Allergies As of Date: 04/26/2023 Noted Allergy Reaction BACLOFEN 04/20/2020 1 - Mental Status Change PRILOSEC (OMEPRAZOLE MAGNESIUM) 12/09/2013 14 - Other: See Comments Comments: burn type TESSALON (BENZONATATE) 12/24/2013 7 - Swelling Comments: Swelling of tongue Date Reviewed: 04/25/2023 Reviewed by: Carmen Willis PA-C - Fully Assessed Reason for Visit: 05/29/2023 COLON/EGD [facility] [Other] Prescriptions as of 05/04/2023 - finerenone (KERENDIA) 20 mg tablet Take 20 mg by mouth once daily. - ezetimibe-atorvastati n 10-10 mg tab Take 10 mg by mouth once daily. - BIOTIN ORAL Take by mouth. - gluc marion/chondro marion A/vit C/Mn (GLUCOSAMINE 1500 COMPLEX ORAL) Take by mouth. - diclofenac sodium (VOLTAREN) 1 % topical gel Apply to affected area four times daily. - TURMERIC ORAL Take by mouth. - Vitamin D3-Menaquinone 7 1000-90 unit-mcg ODT Take by mouth. - Vitamin E, dl, acetate, 1,000 unit capsule Take 1,000 Units by mouth once daily. - beta-carotene,A,-vits C,E/mins (OCUVITE ORAL) Take by mouth. - guaiFENesin (MUCINEX) 600 mg 12 hr tablet Take 2 tablets by mouth twice daily. - benzonatate (TESSALON PERLES) 100 mg capsule Take 1 capsule by mouth three times daily as needed. - albuterol HFA (PROVENTIL HFA, VENTOLIN HFA) 90 mcg/actuation inhaler Inhale 2 Puffs as instructed every 4 hours as needed. - lisinopril (ZESTRIL, PRINIVIL) 20 mg tablet TAKE 1 TABLET BY MOUTH ONCE DAILY. - glipiZIDE XL (GLUCOTROL XL) 2.5 mg 24 hr tablet TAKE 1 TABLET BY MOUTH ONCE DAILY. - ALPRAZolam (XANAX) 0.25 mg tablet Take 1 tablet by mouth once daily as needed for Anxiety. - simvastatin (ZOCOR) 20 mg tablet Take 1 ta (more content not included)... Normal [facility] URINALYSIS, REFLEX MICROSCOP ICon 04-26-2023 Bacteria LM.HPF (Urine sed) [#/Area] Negative Normal Negative [facility] Comment on above: Order Comment: Speci men Type: URINE SPECIMEN Ordering Facility: [facility] Address: [address] [place] [address] Performed By: #### L [id number] #### [facility] CLIA [id number] [facility] [place] [address] [place] Bilirubin Ql (U) Negative Normal Negative [place] Comment on above: Order Comment: Speci men Type: URINE SPECIMEN Ordering Facility: [facility] Address: [address] [place] [address] Performed By: #### L [id number] #### [facility] CLIA [id number] [address] [place] [address] [place] Clarity (Unsp spec) Cloudy Abnormal Clear [facility] Comment on above: Order Comment: Speci men Type: URINE SPECIMEN Ordering Facility: [facility] Address: [address] [place] [address] Performed By: #### L [id number] #### [facility] CLIA [id number] [address] [place] [address] [place] Color (U) Yellow Normal Yellow [facility] Comment on above: Order Comment: Speci men Type: URINE SPECIMEN Ordering Facility: [facility] Address: [address] [place] [address] Performed By: #### L [id number] #### [facility] CLIA [id number] [address] [place] [address] [place] Epithelial cells LM.HPF (Urine sed) [#/Area] Few Normal [facility] Comment on above: Order Comment: Speci men Type: URINE SPECIMEN Ordering Facility: [facility] Address: [address] [place] [address] Result Comment: Mode rate Performed By: #### L [id number] #### [facility] CLIA [id number] [address] [place] [address] [place] Glucose Test strip (U) [Mass/Vol] Negative Normal Negative [facility] Comment on above: Order Comment: Speci men Type: URINE SPECIMEN Ordering Facility: [facility] Address: [address] [place] [address] Performed By: #### L [id number] #### [facility] CLIA [id number] [address] [place] [address] [place] Granular casts (Urine sed) [#/Area] 4-10 /LPF Abnormal 0 /LPF [facility] Comment on above: Order Comment: Speci men Type: URINE SPECIMEN Ordering Facility: [facility] Address: [address] [place] [address] Performed By: #### L [id number] #### [facility] CLIA [id number] [address] [place] [address] [place] Hemoglobin Ql (U) 1+ Abnormal Negative [facility] Comment on above: Order Comment: Speci men Type: URINE SPECIMEN Ordering Facility: [facility] Address: [address] [place] [address] Performed By: #### L [id number] #### [facility] CLIA [id number] [address] [place] [address] [place] Hyaline casts (Urine sed) [#/Area] /[LPF] Abnormal 0 /LPF [facility] Comment on above: Order Comment: Speci men Type: URINE SPECIMEN Ordering Facility: [facility] Address: [address] [place] [address] Performed By: #### L [id number] #### [facility] CLIA [id number] [address] [place] [address] [place] Ketones Ql (U) Negative Normal Negative [facility] Comment on above: Order Comment: Speci men Type: URINE SPECIMEN Ordering Facility: [facility] Address: [address] [place] [address] Performed By: #### L [id number] #### [facility] CLIA [id number] [address] [place] [address] [place] Leukocyte esterase Test strip Ql (U) 1+ Abnormal Negative [facility] Comment on above: Order Comment: Speci men Type: URINE SPECIMEN Ordering Facility: [facility] Address: [address] [place] [address] Performed By: #### L [id number] #### [facility] CLIA [id number] [address] [place] [address] [place] Nitrite Ql (U) Negative Normal Negative [facility] Comment on above: Order Comment: Speci men Type: URINE SPECIMEN Ordering Facility: [facility] Address: [address] [place] [address] Performed By: #### L [id number] #### [facility] CLIA [id number] [address] [place] [address] [place] pH (U) 5.5 [pH] Normal <8.5 [facility] Comment on above: Order Comment: Speci men Type: URINE SPECIMEN Ordering Facility: [facility] Address: [address] [place] [address] Performed By: #### L [id number] #### [facility] CLIA [id number] [address] [place] [address] [place] Protein (U) [Mass/Vol] 3+ Abnormal Negative [facility] Comment on above: Order Comment: Speci men Type: URINE SPECIMEN Ordering Facility: [facility] Address: [address] [place] [address] Performed By: #### L [id number] #### [facility] CLIA [id number] [address] [place] [address] [place] RBC LM.HPF (Urine sed) [#/Area] 0-2 /HPF Normal 0-2 /HPF [facility] Comment on above: Order Comment: Speci men Type: URINE SPECIMEN Ordering Facility: [facility] Address: [address] [place] [address] Performed By: #### L [id number] #### [facility] CLIA [id number] [address] [place] [address] [place] Specific gravity (U) [Rel density] 1.018 Normal 1.005-1.030 [facility] Comment on above: Order Comment: Speci men Type: URINE SPECIMEN Ordering Facility: [facility] Address: [address] [place] [address] Performed By: #### L [id number] #### [facility] CLIA [id number] [address] [place] [address] [place] Urobilinogen Ql (U) 1.0 EU/dL Normal 0.2-1.0 EU/dL [facility] Comment on above: Order Comment: Speci men Type: URINE SPECIMEN Ordering Facility: [facility] Address: [address] [place] [address] Performed By: #### L [id number] #### [facility] CLIA [id number] [address] [place] [address] [place] WBC LM.HPF (Urine sed) [#/Area] 11-20 /HPF Abnormal 0-5 /HPF [facility] Comment on above: Order Comment: Speci men Type: URINE SPECIMEN Ordering Facility: [facility] Address: [address] [place] [address] Performed By: #### L [id number] #### [facility] CLIA [id number] [address] [place] [address] [place] .Auto Diffon 04-25-2023 Basophil, Absolute 0.2 10 3/mcL Normal 0.0-0.2 [facility] ([place] Comment on above: Performed By: #### A DIFF, ANEU, CBC, LIP, MDW, CMP, GFR ####[address] [place], [place] [address] Basophils/100 WBC (Bld) 2.7 % High 0.0-2.5 A [facility] ([place] Comment on above: Performed By: #### A DIFF, ANEU, CBC, LIP, MDW, CMP, GFR ####[address] [place], [place] [address] Eosinophil, Absolute 0.2 10 3/mcL Normal 0.0-0.4 [facility] ([place]) Comment on above: Performed By: #### A DIFF, ANEU, CBC, LIP, MDW, CMP, GFR ####[address] [place], [place] [address] Eosinophils/100 WBC (Bld) 1.9 % Normal 0.0-7.0 [facility] ([place] Comment on above: Performed By: #### A DIFF, ANEU, CBC, LIP, MDW, CMP, GFR ####[address] [place], [place] [address] Lymphocyte, Absolute 2.2 10 3/mcL Normal 0.8-3.9 [facility] ([place]) Comment on above: Performed By: #### A DIFF, ANEU, CBC, LIP, MDW, CMP, GFR ####[address] [place], [place] [address] Lymphocytes/100 WBC (Bld) 25.7 % Normal 10.0-50.0 [facility] ([place] Comment on above: Performed By: #### A DIFF, ANEU, CBC, LIP, MDW, CMP, GFR ####[address] [place], [place] [address] Monocyte, Absolute 0.6 10 3/mcL Normal 0.2-1.0 [facility] ([place] Comment on above: Performed By: #### A DIFF, ANEU, CBC, LIP, MDW, CMP, GFR ####[address] [place], [place] [address] Monocytes/100 WBC (Bld) 7.0 % Normal 1.7-13.0 [facility] ([place] Comment on above: Performed By: #### A DIFF, ANEU, CBC, LIP, MDW, CMP, GFR ####[address] [place], [place] [address] Neutrophils/100 WBC (Bld) 62.7 % Normal 37.0-80.0 [facility] ([place] Comment on above: Performed By: #### A DIFF, ANEU, CBC, LIP, MDW, CMP, GFR ####[place] [address] [place], [place] [address] .GFRon 04-25-2023 GFR 36 ml/min/1.73sqm Normal [facility] ([place] Comment on above: Result Comment: GFR Population mean for , Non- Americans Ages 20-29 = 116 mL/min/1.73 sq.m. Ages 30-39 = 107 mL/min/1.73 sq.m. Ages 40-49 = 99 mL/min/1.73 sq.m. Ages 50-59 = 93 mL/min/1.73 sq.m. Ages 60-69 = 85 mL/min/1.73 sq.m. Ages 70+ = 75 mL/min/1.73 sq.m. Chronic Kidney Disease: Less than 60 mL/min/1.73 square meters End Stage Renal Disease: Less than 15 mL/min/1.73 square meters Performed By: #### A DIFF, ANEU, CBC, LIP, MDW, CMP, GFR ####[address] [place], [place] [address] GFR Non- 30 ml/min/1.73sqm Normal [facility] ([place] Comment on above: Result Comment: GFR Population mean for , Non- Americans Ages 20-29 = 116 mL/min/1.73 sq.m. Ages 30-39 = 107 mL/min/1.73 sq.m. Ages 40-49 = 99 mL/min/1.73 sq.m. Ages 50-59 = 93 mL/min/1.73 sq.m. Ages 60-69 = 85 mL/min/1.73 sq.m. Ages 70+ = 75 mL/min/1.73 sq.m. Chronic Kidney Disease: Less than 60 mL/min/1.73 square meters End Stage Renal Disease: Less than 15 mL/min/1.73 square meters Performed By: #### A DIFF, ANEU, CBC, LIP, MDW, CMP, GFR ####[address] [place], [place] [address] .MDWon 04-25-2023 Monocyte Distribution Width 18.86 Normal 0.00-20.00 [facility] ([place] Comment on above: Result Comment: For ED adult patients suspected of sepsis, MDW<=20.0 does not rule out sepsis or risk of sepsis Performed By: #### A DIFF, ANEU, CBC, LIP, MDW, CMP, GFR ####[address] [place], [place] [address] .NEUABSon 04-25-2023 Neutrophil, Absolute 5.4 10 3/mcL Normal 2.9-6.2 [facility] ([place]) Comment on above: Performed By: #### A DIFF, ANEU, CBC, LIP, MDW, CMP, GFR ####[address] [place], [place] [address] .Urinalysis Microscopic (AO) on 04-25-2023 UA Bacteria 2+ /hpf Abnormal [facility] ([place]) Comment on above: Performed By: #### U AMICAO, UA ####[address] [place], [place] [address] UA RBC 15-25 Abnormal None Seen [facility] ([place] Comment on above: Performed By: #### U AMICAO, UA ####[address] [place], [place] [address] UA Squam Epithelial 5-10 Abnormal None Seen [facility] ([place]) Comment on above: Performed By: #### U AMICAO, UA ####[address] [place], [place] [address] UA WBC LOADED Abnormal None Seen [facility] ([place]) Comment on above: Performed By: #### U AMICAO, UA ####[address] [place], [place] [address] CBCon 04-25-2023 Erythrocyte distribution width (RBC) [Ratio] 12.6 % Normal 11.5-14.5 [facility] ([place]) Comment on above: Performed By: #### A DIFF, ANEU, CBC, LIP, MDW, CMP, GFR ####[address] [place], [place] [address] Hematocrit (Bld) [Volume fraction] 33.1 % Low 37.0-47.0 [facility] ([place] Comment on above: Performed By: #### A DIFF, ANEU, CBC, LIP, W, CMP, GFR ####[address] [place], [place] [address] Hgb 11.6 G/dL Low 12.0-16.0 [facility] ([place] Comment on above: Performed By: #### A DIFF, ANEU, CBC, LIP, W, CMP, GFR ####[address] [place], [place] [address] MCH (RBC) [Entitic mass] 30.8 pg Normal 27.0-31.2 [facility] ([place] Comment on above: Performed By: #### A DIFF, ANEU, CBC, LIP, MDW, CMP, GFR ####[address] [place], [place] [address] MCHC 34.9 G/dL Normal 33.0-37.0 [facility] ([place] Comment on above: Performed By: #### A DIFF, ANEU, CBC, LIP, MDW, CMP, GFR ####[address] [place], [place] [address] MCV (RBC) [Entitic vol] 88.1 fL Normal 80.0-94.0 [facility] ([place]) Comment on above: Performed By: #### A DIFF, ANEU, CBC, LIP, MDW, CMP, GFR ####[address] [place], [place] [address] Platelet 258 10 3/mcL Normal 130-400 [facility] ([place]) Comment on above: Performed By: #### A DIFF, ANEU, CBC, LIP, MDW, CMP, GFR ####[address] [place], [place] [address] Platelet mean volume (Bld) [Entitic vol] 8.9 fL Normal 7.4-10.4 [facility] ([place] Comment on above: Performed By: #### A DIFF, ANEU, CBC, LIP, MDW, CMP, GFR ####[address] [place], [place] [address] RBC 3.76 10 6/mcL Low 4.20-5.40 [facility] ([place] Comment on above: Performed By: #### A DIFF, ANEU, CBC, LIP, MDW, CMP, GFR ####[address] [place], [place] [address] WBC 8.6 10 3/mcL Normal 4.6-10.8 [facility] ([place]) Comment on above: Performed By: #### A DIFF, ANEU, CBC, LIP, MDW, CMP, GFR ####[address] [place], [place] [address] CMPon 04-25-2023 Albumin Level 3.6 G/dL Normal 3.4-4.8 [facility] ([place]) Comment on above: Performed By: #### A DIFF, ANEU, CBC, LIP, MDW, CMP, GFR ####[address] [place], [place] [address] Albumin/Globulin [Mass ratio] 1.0 {ratio} Low 1.1-2.5 [facility] ([place] Comment on above: Performed By: #### A DIFF, ANEU, CBC, LIP, MDW, CMP, GFR ####[address] [place], [place] [address] ALP [Catalytic activity/Vol] 148 U/L High 40-135 [facility] ([place]) Comment on above: Performed By: #### A DIFF, ANEU, CBC, LIP, MDW, CMP, GFR ####[address] [place], [place] [address] ALT [Catalytic activity/Vol] 18 U/L Normal 14-59 [facility] ([place]) Comment on above: Performed By: #### A DIFF, ANEU, CBC, LIP, MDW, CMP, GFR ####[address] [place], [place] [address] AST [Catalytic activity/Vol] 11 U/L Normal 10-40 [facility] ([place]) Comment on above: Performed By: #### A DIFF, ANEU, CBC, LIP, MDW, CMP, GFR ####[address] [place], [place] [address] Bili Total 0.4 mg/dL Normal 0.2-1.0 [facility] ([place]) Comment on above: Result Comment: Use of this assay is not recommended for patients undergoing treatment with eltrombopag due to the potential for falsely elevated results. Performed By: #### A DIFF, ANEU, CBC, LIP, MDW, CMP, GFR ####[address] [place], [place] [address] BUN/Creatinine Ratio 26 ratio Normal 7-27 [facility] ([place]) Comment on above: Performed By: #### A DIFF, ANEU, CBC, LIP, MDW, CMP, GFR ####[address] [place], [place] [address] Calcium [Mass/Vol] 10.2 mg/dL Normal 8.4-10.2 [facility] ([place]) Comment on above: Performed By: #### A DIFF, ANEU, CBC, LIP, MDW, CMP, GFR ####[address] [place], [place] [address] Chloride [Moles/Vol] 100 mmol/L Normal 98-107 [facility] ([place]) Comment on above: Performed By: #### A DIFF, ANEU, CBC, LIP, MDW, CMP, GFR ####[address] [place], [place] [address] CO2 [Moles/Vol] 26 mmol/L Normal 23-31 [facility] ([place]) Comment on above: Performed By: #### A DIFF, ANEU, CBC, LIP, MDW, CMP, GFR ####[address] [place], [place] [address] Creatinine [Mass/Vol] 1.67 mg/dL High 0.55-1.02 [facility] ([place]) Comment on above: Performed By: #### A DIFF, ANEU, CBC, LIP, MDW, CMP, GFR ####[address] [place], [place] [address] Electrolyte Balance 11.0 mEq/L Normal 4.0-15.0 [facility] ([place]) Comment on above: Performed By: #### A DIFF, ANEU, CBC, LIP, MDW, CMP, GFR ####[address] [place], [place] [address] Globulin 3.7 G/dL Normal [facility] ([place]) Comment on above: Performed By: #### A DIFF, ANEU, CBC, LIP, MDW, CMP, GFR ####[address] [place], [place] [address] Glucose [Mass/Vol] 254 mg/dL High 83-110 [facility] ([place]) Comment on above: Performed By: #### A DIFF, ANEU, CBC, LIP, MDW, CMP, GFR ####[address] [place], [place] [address] Potassium [Moles/Vol] 4.2 mmol/L Normal 3.5-5.1 [facility] ([place]) Comment on above: Performed By: #### A DIFF, ANEU, CBC, LIP, MDW, CMP, GFR ####[address] [place], [place] [address] Sodium [Moles/Vol] 137 mmol/L Normal 136-145 [facility] ([place]) Comment on above: Performed By: #### A DIFF, ANEU, CBC, LIP, MDW, CMP, GFR ####[address] [place], [place] [address] Total Protein 7.3 G/dL Normal 6.4-8.2 [facility] ([place]) Comment on above: Performed By: #### A DIFF, ANEU, CBC, LIP, MDW, CMP, GFR ####[address] [place], [place] [address] Urea nitrogen [Mass/Vol] 44 mg/dL High 7-18 [facility] ([place]) Comment on above: Performed By: #### A DIFF, ANEU, CBC, LIP, MDW, CMP, GFR ####[address] [place], [place] [address] YINGOVon 04-25-2023 CNOV Office Visit (SWS ) VALERIANO CROSS ([id number]) 1945 F Date Time Provider Department 04/25/23 11:00 AM CARMEN WILLIS During your visit today, we recorded the following information about you: Temperature Pulse Blood pressure Weight 97.2 degrees 87/minute 118/80 58.3 kg Height 1.473 m Jahaira Crews LPN 04/25/2023 11:05 AM Signed REVIEW OF SYSTEMS: General: The patient denies fatigue, denies weight loss, denies weight gain, denies feeling hot, and denies feelings of cold. Eyes: The patient denies glaucoma, denies eye injury/surgery, wears glasses or contacts. Ear/Nose/Throat: The patient NOTES allergies, denies hayfever, denies ear infections, and denies bloody noses. Cardiovascular: The patient NOTES chest pain, denies heart disease, NOTES high blood pressure,NOTES cardiac stent, denies prior heart attack, NOTES irregular heart beat, NOTES high cholesterol, denies poor circulation, denies heart failure, other cardiac issues, denies claudication, denies cold feet, denies peripheral arterial stent. Respiratory: The patient denies tuberculosis, denies pneumonia, denies frequent cough, denies pulmonary embolism, denies shortness of breath, and denies coughing up blood. Gastrointestinal: The patient NOTES difficulty swallowing, NOTES acid reflux, denies ulcers, denies vomiting, denies jaundice/hepatitis, denies gallbladder problems, denies black or tarry stools, denies hemorrhoids, denies bleeding from rectum, denies diverticulitis, NOTES constipation, NOTES diarrhea, denies loss of stool control, and denies hernias. Kidney/Bladder: The patient denies kidney stones, denies urine infections, and denies bloody urine. Skin: The patient denies a history of skin cancer, denies bleeding/changing moles, and denies a history of skin rash. Neurologic: The patient denies a history of epilepsy/convulsions, denies headaches, denies head/spinal injuries, and denies stroke/TIA. Psychiatric: The patient denies psychiatric medications, denies depression, and denies voices, denies substance abuse. Endocrine: The patient denies thyroid disorders, NOTES diabetes, and denies hormonal problems. Hematologic: The patient denies a history of bruising, denies bleeding, and denies anemia, denies blood clots. Infections: The patient denies a history of measles and mumps, denies rheumatic fever, and denies sexually transmitted diseases. Musculoskeletal: The patient NOTES back pain/injury, NOTES back problems, NOTES sciatica, NOTES knee/foot trouble, NOTES arthritis, or denies gout. When was patient's last Mammogram screening? N/A Last Colonoscopy: 2020 LINWOOD Cutler Amanda, PA-C 04/25/2023 12:21 PM Signed HISTORY AND PHYSICAL Valeriano Cross 1945 REFERRING PHYSICIAN: No ref. provider found [...] within the last few days has developed "sores" in vaginal area and some back toward rectum. 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 Valeriano has undergone prior [...] (HCC) Diabetes mellitus with renal manifestation (HCC) (more content not included)... Normal [facility] CT ABDOMEN/PELVIS W/O CONTRA STon 04-25-2023 CT ABDOMEN/PELVIS W/O CONTRAST ORIGINAL EXAMINATION: CT OF THE ABDOMEN AND [...] normal. Otherwise the pelvic organs appear normal. Peritoneum/Retroperit oneum: There is no intraperitoneal free air or [...] Date: 04/25/2023 5:32:11 PM Ordering Provider: HUMBERTO Chen [facility] ([place]) LABORATORYOrdered By: SYSTEM SYSTEM on 04-25-2023 Albumin BCP dye [Mass/Vol] 3.6 G/dL Normal 3.4 - 4.8 G/dL AO ADM SS Albumin/Globulin [Mass ratio] 1.0 {ratio} Low 1.1 - 2.5 ratio AO ADM SS ALP [Catalytic activity/Vol] 148 U/L High 40 - 135 U/L AO ADM SS ALT With P-5'-P [Catalytic activity/Vol] 18 U/L Normal 14 - 59 U/L AO ADM SS AST With P-5'-P [Catalytic activity/Vol] 11 U/L Normal 10 - 40 U/L AO ADM SS Basophil, Absolute 0.2 103/mcL Normal 0.0 - 0.2 10^3/mcL AO Workflow SS Basophils/100 WBC (Bld) 2.7 % High 0.0 - 2.5 % AO Workflow SS Bilirubin [Mass/Vol] 0.4 mg/dL Normal 0.2 - 1 .0 mg/dL AO ADM SS Comment on above: Interpretive Data: U se of this assay is not recommended for patients undergoing treatment with eltrombopag due to the potential for falsely elevated results. Calcium [Mass/Vol] 10.2 mg/dL Normal 8.4 - 10. 2 mg/dL AO ADM SS Chloride [Moles/Vol] 100 mmol/L Normal 98 - 10 7 mmol/L AO ADM SS CO2 [Moles/Vol] 26 mmol/L Normal 23 - 31 mmol/L AO ADM SS Creatinine [Mass/Vol] 1.67 mg/dL High 0.55 - 1.02 mg/dL AO ADM SS Electrolyte Balance 11.0 mEq/L Normal 4.0 - 15 .0 mEq/L AO ADM SS Eosinophil, Absolute 0.2 103/mcL Normal 0.0 - 0 .4 10^3/mcL AO Workflow SS Eosinophils/100 WBC (Bld) 1.9 % Normal 0.0 - 7.0 % AO Workflow SS Erythrocyte distribution width (RBC) [Ratio] 12.6 % Normal 11.5 - 14.5 % AO Workflow SS GFR/1.73 sq M.predicted among blacks MDRD (S/P/Bld) [Vol rate/Area] 36 ml/min/1.73sqm Invalid Interpretation Code AO Chemistry S Comment on above: Interpretive Data: GFR Population mean for , Non- Americans Ages 20-29 = 116 mL/min/1.73 sq.m. Ages 30-39 = 107 mL/min/1.73 sq.m. Ages 40-49 = 99 mL/min/1.73 sq.m. Ages 50-59 = 93 mL/min/1.73 sq.m. Ages 60-69 = 85 mL/min/1.73 sq.m. Ages 70+ = 75 mL/min/1.73 sq.m. Chronic Kidney Disease: Less than 60 mL/min/1.73 square meters End Stage Renal Disease: Less than 15 mL/min/1.73 square meters GFR/1.73 sq M.predicted among non-blacks MDRD (S/P/Bld) [Vol rate/Area] 30 ml/min/1.73sqm Invalid Interpretation Code AO Chemistry S Comment on above: Interpretive Data: GFR Population mean for , Non- Americans Ages 20-29 = 116 mL/min/1.73 sq.m. Ages 30-39 = 107 mL/min/1.73 sq.m. Ages 40-49 = 99 mL/min/1.73 sq.m. Ages 50-59 = 93 mL/min/1.73 sq.m. Ages 60-69 = 85 mL/min/1.73 sq.m. Ages 70+ = 75 mL/min/1.73 sq.m. Chronic Kidney Disease: Less than 60 mL/min/1.73 square meters End Stage Renal Disease: Less than 15 mL/min/1.73 square meters Globulin 3.7 G/dL Invalid Interpretation Code AO ADM SS Glucose [Mass/Vol] 254 mg/dL High 83 - 110 mg/dL AO ADM SS Hematocrit (Bld) [Volume fraction] 33.1 % Low 37.0 - 47.0 % AO Workflow SS Hemoglobin (Bld) [Mass/Vol] 11.6 G/dL Low 12.0 - 16.0 G/dL AO Workflow SS Lipase [Catalytic activity/Vol] 28 U/L Normal 16 - 77 U/L AO ADM SS Lymphocyte, Absolute 2.2 103/mcL Normal 0.8 - 3 .9 10^3/mcL AO Workflow SS Lymphocytes/100 WBC (Bld) 25.7 % Normal 10.0 - 50.0 % AO Workflow SS MCH (RBC) [Entitic mass] 30.8 pg Normal 27.0 - 31.2 pg AO Workflow SS MCHC 34.9 G/dL Normal 33.0 - 37.0 G/dL AO Workflow SS MCV (RBC) [Entitic vol] 88.1 fL Normal 80.0 - 94.0 fL AO Workflow SS Monocyte distribution width Auto (Bld) [Entitic vol] 18.86 1 Normal 0.00 - 20.00 AO Workflow SS Comment on above: Result Comment: For ED adult patients suspected of sepsis, MDW<=20.0 does not rule out sepsis or risk of sepsis Monocyte, Absolute 0.6 103/mcL Normal 0.2 - 1.0 10^3/mcL AO Workflow SS Monocytes/100 WBC (Bld) 7.0 % Normal 1.7 - 13.0 % AO Workflow SS Neutrophil, Absolute 5.4 103/mcL Normal 2.9 - 6 .2 10^3/mcL AO Workflow SS Neutrophils/100 WBC (Bld) 62.7 % Normal 37.0 - 80.0 % AO Workflow SS Platelet mean volume (Bld) [Entitic vol] 8.9 fL Normal 7.4 - 10.4 fL AO Workflow SS Platelets (Bld) [#/Vol] 258 103/mcL Normal 130 - 400 10^3/mcL AO Workflow SS Potassium [Moles/Vol] 4.2 mmol/L Normal 3.5 - 5.1 mmol/L AO ADM SS Protein [Mass/Vol] 7.3 G/dL Normal 6.4 - 8.2 G/dL AO ADM SS RBC (Bld) [#/Vol] 3.76 106/mcL Low 4.20 - 5.4 0 10^6/mcL AO Workflow SS Sodium [Moles/Vol] 137 mmol/L Normal 136 - 145 mmol/L AO ADM SS Urea nitrogen [Mass/Vol] 44 mg/dL High 7 - 18 mg/dL AO ADM SS Urea nitrogen/Creatinine [Mass ratio] 26 ratio Normal 7 - 27 ratio AO ADM SS WBC (Bld) [#/Vol] 8.6 103/mcL Normal 4.6 - 10.8 10^3/mcL AO Workflow SS LABORATORYOrdered By: Poncho Joaquin on 04-25-2023 Appearance (U) Slightly Cloudy *ABN* (04/25/23 3:21 PM) Invalid Interpretation Code Clear AO Auto Urine SS Bacteria LM.HPF (Urine sed) [#/Area] 2 /[HPF] Invalid Interpretation Code AO Auto Urine SS Bilirubin Ql (U) Negative (04/25/23 3:21 PM) Normal Negative AO Auto Urine SS Color (U) Yellow (04/25/23 3:21 PM) Normal AO Auto Urine SS Glucose Test strip (U) [Mass/Vol] Negative Normal Negative AO Auto Urine SS Hemoglobin Auto test strip (U) [Mass/Vol] Moderate *ABN* (04/25/23 3:21 PM) Invalid Interpretation Code Negative AO Auto Urine SS Ketones Ql (U) Negative Normal Negative AO Auto Urine SS UA Leuk Est Large *ABN* (04/25/23 3:21 PM) Invalid Interpretation Code Negative AO Auto Urine SS UA Nitrite Negative (04/25/23 3:21 PM) Normal Negative AO Auto Urine SS UA pH 5.0 (04/25/23 3:21 PM) Normal 5.0 - 8.0 AO Auto Urine SS UA Protein 100 mg/dL Invalid Interpretation Code Negative AO Auto Urine SS UA RBC 15-25 /HPF Invalid Interpretation Code None Seen AO Auto Urine SS UA Spec Grav 1.015 (04/25/23 3:21 PM) Normal 1.015-1.025 AO Auto Urine SS UA Specimen Type Clean Catch (04/25/23 3:21 PM) Normal AO Auto Urine SS UA Squam Epithelial 5-10 /HPF Invalid Interpretation Code None Seen AO Auto Urine SS UA Urobilinogen 0.2 E.U./dL Normal 0.2-1.0 AO Auto Urine SS WBC LM.HPF (Urine sed) [#/Area] LOADED /HPF Invalid Interpretation Code None Seen AO Auto Urine SS LIPon 04-25-2023 Lipase Level 28 U/L Normal 16-77 [facility] ([place] Comment on above: Performed By: #### A DIFF, ANEU, CBC, LIP, MDW, CMP, GFR ####[address] [place], [place] [address] UAon 04-25-2023 Color (U) Yellow Normal [facility] ([place] Comment on above: Performed By: #### U AMICAO, UA ####[address] [place], [place] [address] Glucose (U) [Mass/Vol] Negative Normal Negative [facility] ([place] Comment on above: Performed By: #### U AMICAO, UA ####[address] [place], [place] [address] Ketones Ql (U) Negative Normal Negative [facility] ([place] Comment on above: Performed By: #### U AMICAO, UA ####[address] [place], [place] [address] UA Appear Slightly Cloudy Abnormal Clear [facility] ([place] Comment on above: Performed By: #### U AMICAO, UA ####[address] [place], [place] [address] UA Blood Moderate Abnormal Negative [facility] ([place] Comment on above: Performed By: #### U AMICAO, UA ####[address] [place], [place] [address] UA Leuk Est Large Abnormal Negative [facility] ([place] Comment on above: Performed By: #### U AMICAO, UA ####[address] [place], [place] [address] UA Nitrite Negative Normal Negative [facility] ([place] Comment on above: Performed By: #### U AMICAO, UA ####[address] [place], [place] [address] UA pH 5.0 Normal 5.0 - 8.0 [facility] ([place] Comment on above: Performed By: #### U AMICAO, UA ####[address] [place], [place] [address] UA Protein 100 mg/dL Abnormal Negative [facility] ([place] Comment on above: Performed By: #### U AMICAO, UA ####[address] [place], [place] [address] UA Spec Grav 1.015 Normal 1.015-1.025 [facility] ([place] Comment on above: Performed By: #### U AMICAO, UA ####[address] [place], [place] [address] UA Specimen Type Clean Catch Normal [facility] ([place] Comment on above: Performed By: #### U AMICAO, UA ####[address] [place], [place] [address] UA Urobilinogen 0.2 E.U./dL Normal 0.2-1.0 [facility] ([place] Comment on above: Performed By: #### U AMICAO, UA ####[address] [place], [place] [address] Urobilinogen (U) [Mass/Vol] Negative Normal Negative [facility] ([place] Comment on above: Performed By: #### U AMICAO, UA ####[address] [address] .Auto Diffon 03-09-2023 Basophil, Absolute 0.1 10 3/mcL Normal 0.0-0.2 [facility] ([place] Comment on above: Performed By: #### C MP, ADIFF, ANEU, LIP, MDW, GFR, CBC #### [address] [address] Basophils/100 WBC (Bld) 1.4 % Normal 0.0-2.5 A [facility] ([place] Comment on above: Performed By: #### C MP, ADIFF, ANEU, LIP, MDW, GFR, CBC #### [address] [address] Eosinophil, Absolute 0.2 10 3/mcL Normal 0.0-0.4 [facility] ([place] Comment on above: Performed By: #### C MP, ADIFF, ANEU, LIP, MDW, GFR, CBC #### [address] [address] Eosinophils/100 WBC (Bld) 2.0 % Normal 0.0-7.0 [facility] ([place] Comment on above: Performed By: #### C MP, ADIFF, ANEU, LIP, MDW, GFR, CBC #### [address] [address] Lymphocyte, Absolute 1.9 10 3/mcL Normal 0.8-3.9 [facility] ([place] Comment on above: Performed By: #### C MP, ADIFF, ANEU, LIP, MDW, GFR, CBC #### [address] [address] Lymphocytes/100 WBC (Bld) 21.0 % Normal 10.0-50.0 [facility] ([place] Comment on above: Performed By: #### C MP, ADIFF, ANEU, LIP, MDW, GFR, CBC #### [address] [address] Monocyte, Absolute 0.6 10 3/mcL Normal 0.2-1.0 [facility] ([place] Comment on above: Performed By: #### C MP, ADIFF, ANEU, LIP, MDW, GFR, CBC #### [address] [address] Monocytes/100 WBC (Bld) 6.4 % Normal 1.7-13.0 A [facility] ([place] Comment on above: Performed By: #### C MP, ADIFF, ANEU, LIP, MDW, GFR, CBC #### [address] [address] Neutrophils/100 WBC (Bld) 69.2 % Normal 37.0-80.0 [facility] ([place] Comment on above: Performed By: #### C MP, ADIFF, ANEU, LIP, MDW, GFR, CBC #### [address] [address] .GFRon 03-09-2023 GFR 37 ml/min/1.73sqm Normal [facility] ([place] Comment on above: Result Comment: GFR Population mean for , Non- Americans Ages 20-29 = 116 mL/min/1.73 sq.m. Ages 30-39 = 107 mL/min/1.73 sq.m. Ages 40-49 = 99 mL/min/1.73 sq.m. Ages 50-59 = 93 mL/min/1.73 sq.m. Ages 60-69 = 85 mL/min/1.73 sq.m. Ages 70+ = 75 mL/min/1.73 sq.m. Chronic Kidney Disease: Less than 60 mL/min/1.73 square meters End Stage Renal Disease: Less than 15 mL/min/1.73 square meters Performed By: #### C MP, ADIFF, ANEU, LIP, MDW, GFR, CBC #### [address] [address] GFR Non- 30 ml/min/1.73sqm Normal [facility] ([place] Comment on above: Result Comment: GFR Population mean for , Non- Americans Ages 20-29 = 116 mL/min/1.73 sq.m. Ages 30-39 = 107 mL/min/1.73 sq.m. Ages 40-49 = 99 mL/min/1.73 sq.m. Ages 50-59 = 93 mL/min/1.73 sq.m. Ages 60-69 = 85 mL/min/1.73 sq.m. Ages 70+ = 75 mL/min/1.73 sq.m. Chronic Kidney Disease: Less than 60 mL/min/1.73 square meters End Stage Renal Disease: Less than 15 mL/min/1.73 square meters Performed By: #### C JOCY, PHYLLIS, FRANSISCA, LIP, MDW, GFR, CBC #### [address] [address] .MDWon 03-09-2023 Monocyte Distribution Width 15.32 Normal 0.00-20.00 [facility] ([place] Comment on above: Result Comment: For ED adult patients suspected of sepsis, MDW<=20.0 does not rule out sepsis or risk of sepsis Performed By: #### C JOCY, PHYLLIS, FRANSISCA, LIP, MDW, GFR, CBC #### [place] [address] .NEUABSon 03-09-2023 Neutrophil, Absolute 6.2 10 3/mcL Normal 2.9-6.2 [facility] ([place] Comment on above: Performed By: #### C JOCY, PHYLLIS, FRANSISCA, LIP, MDW, GFR, CBC #### [address] [address] .Urinalysis Microscopic (AO) on 03-09-2023 UA Bacteria 4+ /hpf Abnormal [facility] ([place] Comment on above: Performed By: #### U A, UAMICAO ####[address] [place], [place] [address] UA RBC 5-10 Abnormal None Seen [facility] ([place] Comment on above: Performed By: #### U A, UAMICAO ####[address] [place], [place] [address] UA Squam Epithelial LOADED Abnormal None Seen [facility] ([place] Comment on above: Performed By: #### U A, UAMICAO ####[place] [id number] UA WBC LOADED Abnormal None Seen [facility] ([place] Comment on above: Performed By: #### U ELAINE SanchezMICAO ####[place] [id number] CBCon 03-09-2023 Erythrocyte distribution width (RBC) [Ratio] 12.2 % Normal 11.5-14.5 [facility] ([place] Comment on above: Performed By: #### C MP, ADIFF, ANEU, LIP, MDW, GFR, CBC #### [place] [address] Hematocrit (Bld) [Volume fraction] 37.5 % Normal 37.0-47.0 [facility] ([place] Comment on above: Performed By: #### C MP, ADIFF, ANEU, LIP, MDW, GFR, CBC #### [place] [id number] Hgb 12.5 G/dL Normal 12.0-16.0 [facility] ([place] Comment on above: Performed By: #### C MP, ADIFF, ANEU, LIP, MDW, GFR, CBC #### [place] [id number] MCH (RBC) [Entitic mass] 30.0 pg Normal 27.0-31.2 [facility] ([place] Comment on above: Performed By: #### C MP, ADIFF, ANEU, LIP, MDW, GFR, CBC #### [place] [id number] MCHC 33.4 G/dL Normal 33.0-37.0 [facility] ([place] Comment on above: Performed By: #### C MP, ADIFF, ANEU, LIP, MDW, GFR, CBC #### [place] [id number] MCV (RBC) [Entitic vol] 90.0 fL Normal 80.0-94.0 A [facility] ([place] Comment on above: Performed By: #### C MP, ADIFF, ANEU, LIP, MDW, GFR, CBC #### [address] [address] Platelet 295 10 3/mcL Normal 130-400 [facility] ([place] Comment on above: Performed By: #### C MP, ADIFF, ANEU, LIP, MDW, GFR, CBC #### [address] [address] Platelet mean volume (Bld) [Entitic vol] 9.2 fL Normal 7.4-10.4 [facility] ([place] Comment on above: Performed By: #### C MP, ADIFF, ANEU, LIP, MDW, GFR, CBC #### [address] [address] RBC 4.16 10 6/mcL Low 4.20-5.40 [facility] ([place] Comment on above: Performed By: #### C MP, ADIFF, ANEU, LIP, MDW, GFR, CBC #### [address] [address] WBC 9.0 10 3/mcL Normal 4.6-10.8 [facility] ([place] Comment on above: Performed By: #### C MP, ADIFF, ANEU, LIP, MDW, GFR, CBC #### [address] [address] CMPon 03-09-2023 Albumin Level 3.9 G/dL Normal 3.4-4.8 [facility] ([place] Comment on above: Performed By: #### C MP, ADIFF, ANEU, LIP, MDW, GFR, CBC #### [address] [address] Albumin/Globulin [Mass ratio] 1.1 {ratio} Normal 1.1-2.5 [facility] ([place] Comment on above: Performed By: #### C MP, ADIFF, ANEU, LIP, MDW, GFR, CBC #### [address] [address] ALP [Catalytic activity/Vol] 150 U/L High 40-135 [facility] ([place] Comment on above: Performed By: #### C MP, ADIFF, ANEU, LIP, MDW, GFR, CBC #### [address] [address] ALT [Catalytic activity/Vol] 16 U/L Normal 14-59 [facility] ([place] Comment on above: Performed By: #### C MP, ADIFF, ANEU, LIP, MDW, GFR, CBC #### [address] [address] AST [Catalytic activity/Vol] 15 U/L Normal 10-40 [facility] ([place] Comment on above: Performed By: #### C MP, ADIFF, ANEU, LIP, MDW, GFR, CBC #### [address] [address] Bili Total 0.4 mg/dL Normal 0.2-1.0 [facility] ([place] Comment on above: Result Comment: Use of this assay is not recommended for patients undergoing treatment with eltrombopag due to the potential for falsely elevated results. Performed By: #### C MP, ADIFF, ANEU, LIP, MDW, GFR, CBC #### [address] [address] BUN/Creatinine Ratio 21 ratio Normal 7-27 [facility] ([place] Comment on above: Performed By: #### C MP, ADIFF, ANEU, LIP, MDW, GFR, CBC #### [address] [address] Calcium [Mass/Vol] 10.0 mg/dL Normal 8.4-10.2 [facility] ([place]) Comment on above: Performed By: #### C MP, ADIFF, ANEU, LIP, MDW, GFR, CBC #### [address] [address] Chloride [Moles/Vol] 104 mmol/L Normal 98-107 [facility] ([place] Comment on above: Performed By: #### C MP, ADIFF, ANEU, LIP, MDW, GFR, CBC #### [address] [address] CO2 [Moles/Vol] 27 mmol/L Normal 23-31 [facility] ([place] Comment on above: Performed By: #### C MP, ADIFF, ANEU, LIP, MDW, GFR, CBC #### [address] [address] Creatinine [Mass/Vol] 1.65 mg/dL High 0.55-1.02 [facility] ([place]) Comment on above: Performed By: #### C MP, ADIFF, ANEU, LIP, MDW, GFR, CBC #### [address] [address] Electrolyte Balance 8.0 mEq/L Normal 4.0-15.0 [facility] ([place]) Comment on above: Performed By: #### C MP, ADIFF, ANEU, LIP, MDW, GFR, CBC #### [address] [address] Globulin 3.4 G/dL Normal [facility] ([place] Comment on above: Performed By: #### C MP, ADIFF, ANEU, LIP, MDW, GFR, CBC #### [address] [address] Glucose [Mass/Vol] 217 mg/dL High 83-110 [facility] ([place]) Comment on above: Performed By: #### C MP, ADIFF, ANEU, LIP, MDW, GFR, CBC #### [address] [address] Potassium [Moles/Vol] 4.9 mmol/L Normal 3.5-5.1 [facility] ([place] Comment on above: Performed By: #### C MP, ADIFF, ANEU, LIP, MDW, GFR, CBC #### [place] [id number] Sodium [Moles/Vol] 139 mmol/L Normal 136-145 [facility] ([place]) Comment on above: Performed By: #### C MP, ADIFF, ANEU, LIP, MDW, GFR, CBC #### [address] [place] [address] Total Protein 7.3 G/dL Normal 6.4-8.2 [facility] ([place] Comment on above: Performed By: #### C PHYLLIS SANDRA ANEU, LIP, MDW, GFR, CBC #### [address] [place] [address] [place], [place] [address] Urea nitrogen [Mass/Vol] 35 mg/dL High 7-18 [facility] ([place] Comment on above: Performed By: #### C PHYLLIS SANDRA ANEU, LIP, W, GFR, CBC #### [address] [place] [address] [address] [place], [place] [address] CT ABDOMEN/PELVIS W/O CONTRA STon 03-09-2023 CT ABDOMEN/PELVIS W/O CONTRAST ORIGINAL EXAMINATION: CT OF THE ABDOMEN AND [...] Alex Hernandez MD Preliminary Report By: Amrit Monroy Electronically signed By Alex Hernandez MD Dictated Date: 03/09/2023 5:56:08 PM Prelim Date: 03/09/2023 6:08:11 PM Sign Date: 03/09/2023 6:18:39 PM Ordering Provider: JALYN Chen [facility] ([place]) LABORATORYOrdered By: SYSTEM SYSTEM on 03-09-2023 Albumin BCP dye [Mass/Vol] 3.9 G/dL Normal 3.4 - 4.8 G/dL AO ADM SS Albumin/Globulin [Mass ratio] 1.1 {ratio} Normal 1.1 - 2.5 ratio AO ADM SS ALP [Catalytic activity/Vol] 150 U/L High 40 - 135 U/L AO ADM SS ALT With P-5'-P [Catalytic activity/Vol] 16 U/L Normal 14 - 59 U/L AO ADM SS AST With P-5'-P [Catalytic activity/Vol] 15 U/L Normal 10 - 40 U/L AO ADM SS Basophil, Absolute 0.1 103/mcL Normal 0.0 - 0.2 10^3/mcL AO Workflow SS Basophils/100 WBC (Bld) 1.4 % Normal 0.0 - 2.5 % AO Workflow SS Bilirubin [Mass/Vol] 0.4 mg/dL Normal 0.2 - 1 .0 mg/dL AO ADM SS Comment on above: Interpretive Data: U se of this assay is not recommended for patients undergoing treatment with eltrombopag due to the potential for falsely elevated results. Calcium [Mass/Vol] 10.0 mg/dL Normal 8.4 - 10. 2 mg/dL AO ADM SS Chloride [Moles/Vol] 104 mmol/L Normal 98 - 10 7 mmol/L AO ADM SS CO2 [Moles/Vol] 27 mmol/L Normal 23 - 31 mmol/L AO ADM SS Creatinine [Mass/Vol] 1.65 mg/dL High 0.55 - 1.02 mg/dL AO ADM SS Electrolyte Balance 8.0 mEq/L Normal 4.0 - 15 .0 mEq/L AO ADM SS Eosinophil, Absolute 0.2 103/mcL Normal 0.0 - 0 .4 10^3/mcL AO Workflow SS Eosinophils/100 WBC (Bld) 2.0 % Normal 0.0 - 7.0 % AO Workflow SS Erythrocyte distribution width (RBC) [Ratio] 12.2 % Normal 11.5 - 14.5 % AO Workflow SS GFR/1.73 sq M.predicted among blacks MDRD (S/P/Bld) [Vol rate/Area] 37 ml/min/1.73sqm Invalid Interpretation Code AO Chemistry S Comment on above: Interpretive Data: GFR Population mean for , Non- Americans Ages 20-29 = 116 mL/min/1.73 sq.m. Ages 30-39 = 107 mL/min/1.73 sq.m. Ages 40-49 = 99 mL/min/1.73 sq.m. Ages 50-59 = 93 mL/min/1.73 sq.m. Ages 60-69 = 85 mL/min/1.73 sq.m. Ages 70+ = 75 mL/min/1.73 sq.m. Chronic Kidney Disease: Less than 60 mL/min/1.73 square meters End Stage Renal Disease: Less than 15 mL/min/1.73 square meters GFR/1.73 sq M.predicted among non-blacks MDRD (S/P/Bld) [Vol rate/Area] 30 ml/min/1.73sqm Invalid Interpretation Code AO Chemistry S Comment on above: Interpretive Data: GFR Population mean for , Non- Americans Ages 20-29 = 116 mL/min/1.73 sq.m. Ages 30-39 = 107 mL/min/1.73 sq.m. Ages 40-49 = 99 mL/min/1.73 sq.m. Ages 50-59 = 93 mL/min/1.73 sq.m. Ages 60-69 = 85 mL/min/1.73 sq.m. Ages 70+ = 75 mL/min/1.73 sq.m. Chronic Kidney Disease: Less than 60 mL/min/1.73 square meters End Stage Renal Disease: Less than 15 mL/min/1.73 square meters Globulin 3.4 G/dL Invalid Interpretation Code AO ADM SS Glucose [Mass/Vol] 217 mg/dL High 83 - 110 mg/dL AO ADM SS Hematocrit (Bld) [Volume fraction] 37.5 % Normal 37.0 - 47.0 % AO Workflow SS Hemoglobin (Bld) [Mass/Vol] 12.5 G/dL Normal 12.0 - 16.0 G/dL AO Workflow SS Lipase [Catalytic activity/Vol] 39 U/L Normal 16 - 77 U/L AO ADM SS Lymphocyte, Absolute 1.9 103/mcL Normal 0.8 - 3 .9 10^3/mcL AO Workflow SS Lymphocytes/100 WBC (Bld) 21.0 % Normal 10.0 - 50.0 % AO Workflow SS MCH (RBC) [Entitic mass] 30.0 pg Normal 27.0 - 31.2 pg AO Workflow SS MCHC 33.4 G/dL Normal 33.0 - 37.0 G/dL AO Workflow SS MCV (RBC) [Entitic vol] 90.0 fL Normal 80.0 - 94.0 fL AO Workflow SS Monocyte distribution width Auto (Bld) [Entitic vol] 15.32 1 Normal 0.00 - 20.00 AO Workflow SS Comment on above: Result Comment: For ED adult patients suspected of sepsis, MDW<=20.0 does not rule out sepsis or risk of sepsis Monocyte, Absolute 0.6 103/mcL Normal 0.2 - 1.0 10^3/mcL AO Workflow SS Monocytes/100 WBC (Bld) 6.4 % Normal 1.7 - 13.0 % AO Workflow SS Neutrophil, Absolute 6.2 103/mcL Normal 2.9 - 6 .2 10^3/mcL AO Workflow SS Neutrophils/100 WBC (Bld) 69.2 % Normal 37.0 - 80.0 % AO Workflow SS Platelet mean volume (Bld) [Entitic vol] 9.2 fL Normal 7.4 - 10.4 fL AO Workflow SS Platelets (Bld) [#/Vol] 295 103/mcL Normal 130 - 400 10^3/mcL AO Workflow SS Potassium [Moles/Vol] 4.9 mmol/L Normal 3.5 - 5.1 mmol/L AO ADM SS Protein [Mass/Vol] 7.3 G/dL Normal 6.4 - 8.2 G/dL AO ADM SS RBC (Bld) [#/Vol] 4.16 106/mcL Low 4.20 - 5.4 0 10^6/mcL AO Workflow SS Sodium [Moles/Vol] 139 mmol/L Normal 136 - 145 mmol/L AO ADM SS Urea nitrogen [Mass/Vol] 35 mg/dL High 7 - 18 mg/dL AO ADM SS Urea nitrogen/Creatinine [Mass ratio] 21 ratio Normal 7 - 27 ratio AO ADM SS WBC (Bld) [#/Vol] 9.0 103/mcL Normal 4.6 - 10.8 10^3/mcL AO Workflow SS LABORATORYOrdered By: Jean Carlos Smith on 03-09-2023 Appearance (U) Clear (03/09/23 4:04 PM) Normal Clear AO Auto Urine SS Bacteria LM.HPF (Urine sed) [#/Area] 4 /[HPF] Invalid Interpretation Code AO Auto Urine SS Bilirubin Ql (U) Negative (03/09/23 4:04 PM) Normal Negative AO Auto Urine SS Color (U) Yellow (03/09/23 4:04 PM) Normal AO Auto Urine SS Glucose Test strip (U) [Mass/Vol] Negative Normal Negative AO Auto Urine SS Hemoglobin Auto test strip (U) [Mass/Vol] Moderate *ABN* (03/09/23 4:04 PM) Invalid Interpretation Code Negative AO Auto Urine SS Ketones Ql (U) Trace mg/dL Invalid Interpretation Code Negative AO Auto Urine SS UA Leuk Est Small *ABN* (03/09/23 4:04 PM) Invalid Interpretation Code Negative AO Auto Urine SS UA Nitrite Negative (03/09/23 4:04 PM) Normal Negative AO Auto Urine SS UA pH 5.5 (03/09/23 4:04 PM) Normal 5.0 - 8.0 AO Auto Urine SS UA Protein >=300 mg/dL Invalid Interpretation Code Negative AO Auto Urine SS UA RBC 5-10 /HPF Invalid Interpretation Code None Seen AO Auto Urine SS UA Spec Grav >=1.030 *ABN* (03/09/23 4:04 PM) Invalid Interpretation Code 1.015-1.025 AO Auto Urine SS UA Specimen Type Clean Catch (03/09/23 4:04 PM) Normal AO Auto Urine SS UA Squam Epithelial LOADED /HPF Invalid Interpretation Code None Seen AO Auto Urine SS UA Urobilinogen 1.0 E.U./dL Normal 0.2-1.0 AO Auto Urine SS WBC LM.HPF (Urine sed) [#/Area] LOADED /HPF Invalid Interpretation Code None Seen AO Auto Urine SS LIPon 03-09-2023 Lipase Level 39 U/L Normal 16-77 [facility] ([place] Comment on above: Performed By: #### C MP, ADIFF, ANEU, LIP, MDW, GFR, CBC #### Cee [address] [place], [place] [address] UAon 03-09-2023 Color (U) Yellow Normal [facility] ([place] Comment on above: Performed By: #### U A, UAMICAO ####[address] [place], [place] [address] Glucose (U) [Mass/Vol] Negative Normal Negative [facility] ([place] Comment on above: Performed By: #### U A, UAMICAO ####[address] [place], [place] [address] Ketones Ql (U) Trace Abnormal Negative [facility] ([place] Comment on above: Performed By: #### U A, UAMICAO ####[address] [place], [place] [address] UA Appear Clear Normal Clear [facility] ([place] Comment on above: Performed By: #### U A, UAMICAO ####[address] [place], [place] [address] UA Blood Moderate Abnormal Negative [facility] ([place] Comment on above: Performed By: #### U A, UAMICAO ####[address] [place], [place] [address] UA Leuk Est Small Abnormal Negative [facility] ([place] Comment on above: Performed By: #### U A, UAMICAO ####[address] [place], [place] [address] UA Nitrite Negative Normal Negative [facility] ([place] Comment on above: Performed By: #### U A, UAMICAO ####[address] [place], [place] [address] UA pH 5.5 Normal 5.0 - 8.0 [facility] ([place] Comment on above: Performed By: #### U A, UAMICAO ####[address] [place], [place] [address] UA Protein >=300 Abnormal Negative [facility] ([place] Comment on above: Performed By: #### U A, UAMICAO ####[address] [place], [place] [address] UA Spec Grav >=1.030 Abnormal 1.015-1.025 [facility] ([place] Comment on above: Performed By: #### U A, UAMICAO ####[address] [place], [place] [address] UA Specimen Type Clean Catch Normal [facility] ([place] Comment on above: Performed By: #### U A, UAMICAO ####[address] [place], [place] [address] UA Urobilinogen 1.0 E.U./dL Normal 0.2-1.0 [facility] ([place] Comment on above: Performed By: #### U A UAMICAO ####[address] [place], [place] [address] Urobilinogen (U) [Mass/Vol] Negative Normal Negative [facility] ([place] Comment on above: Performed By: #### U A UAMICSHANTAL ####[address] [place], [place] [address] Basophil percentageOrdered B y: Lisa Martell on 02-23-2023 Basophil percentage 2.9 mg/dL 2.5-4.9 [facility] [place] Chloride [Moles/Vol] 106 mmol/L 98-107 [facility] Glucose [Mass/Vol] 167 mg/dL 74-106 [facility] Comment on above: Fasting Glucose resu lt greater than or equal to 126 mg/dL suggests DIABETES MELLITUS per A.D.A. criteria. Potassium [Moles/Vol] 4.2 mmol/L 3.5-5.1 [facility] Sodium [Moles/Vol] 139 mmol/L 136-145 [facility] Laboratory - Chemistry and C hemistry - challengeOrdered By: Lisa Martell on 02-23-2023 CO2 [Moles/Vol] 26.0 mmol/L 21.0-32.0 [facility] Urea nitrogen/Creatinine [Mass ratio] 26.4 mg/mg 10-20 [facility] No Panel InformationOrdered By: Lisa Martell on 02-23-2023 Estimated GFR (MDRD) Amer 56 mL/min >60 [facility] Comment on above: GFR Calc Estimated GFR (MDRD) Non-Af Amer 46 mL/min >60 [facility] Comment on above: Non- GFR Calc Serum or plasma albumin francie urement (mass/volume)Ordered By: Lisa Martell on 02-23-2023 Albumin [Mass/Vol] 3.6 g/dL 3.2-5.0 [facility] Serum or plasma calcium francie urement (mass/volume)Ordered By: Lisa Martell on 02-23-2023 Calcium [Mass/Vol] 10.1 mg/dL 8.5-10.1 [facility] Serum or plasma creatinine m easurement (mass/volume)Ordered By: Lisa Martell on 02-23-2023 Creatinine [Mass/Vol] 1.21 mg/dL 0.55-1.02 [facility] Comment on above: The validity of the calculated GFR & GFRAA in patients over 70 years has not been determined. Clinical correlation is essential. Serum or plasma urea nitroge n measurement (mass/volume)Ordered By: Lisa Martell on 02-23-2023 Urea nitrogen [Mass/Vol] 32 mg/dL 7-18 [facility] Urine creatinine measurement (mass/volume)Ordered By: Lisa Martell on 02-23-2023 Creatinine (U) [Mass/Vol] 172.00 mg/dL NO RANGE EST. [facility] Urine protein measurement (m ass/volume)Ordered By: Lisa Martell on 02-23-2023 Protein (U) [Mass/Vol] 134.3 mg/dL 0.0-11.8 [facility] Urine protein/creatinine mas s ratioOrdered By: Lisa Martell on 02-23-2023 Protein/Creatinine (U) [Mass ratio] 781 mg/g CRE 0-200 [facility] Basophil percentageOrdered B y: Katt Ramsay on 12-04-2022 Bilirubin [Mass/Vol] 0.60 mg/dL 0.20-1.00 [facility] Comment on above: For patients on eltr ombopag therapy, use of Dimension [place] TBIL is not recommended. Cholesterol [Mass/Vol] 192 mg/dL <200 [facility] Comment on above: <200 mg/dL Desirable 200-240 mg/dL Borderline >240 mg/dL High Risk Protein [Mass/Vol] 7.5 g/dL 6.4-8.2 [facility] Triglyceride [Mass/Vol] 244 mg/dL <199 [facility] Comment on above: The drugs N-Acetylcy steine and Metamizole may falsely depress this assay.Serum Triglycerides Reference Interval Normal <150 mg/dL Borderline high 150 - 199 mg/dL High 200 - 499 mg/dL Very High > or = 500 mg/dL Direct bilirubinOrdered By: Katt Ramsay on 12-04-2022 Bilirubin.direct [Mass/Vol] 0.20 mg/dL 0.00-0.30 [facility] Laboratory - Chemistry and C hemistry - challengeOrdered By: Katt Ramsay on 12-04-2022 ALP [Catalytic activity/Vol] 129 U/L 45-117 [facility] ALT [Catalytic activity/Vol] 20 U/L 13-56 [facility] Globulin (S) [Mass/Vol] 3.5 g/dL 2.2-4.2 [facility] No Panel InformationOrdered By: Katt Ramsay on 12-04-2022 Thyroid Stimulating Hormone (TSH) 1.25 uIU/mL 0.358-3.74 [facility] Serum or plasma albumin francie urement (mass/volume)Ordered By: Katt Ramsay on 12-04-2022 Albumin [Mass/Vol] 4.0 g/dL 3.2-5.0 [facility] Serum or plasma cholesterol in HDL measurement (mass/volume)Ordered By: Katt Ramsay on 12-04-2022 Cholesterol in HDL [Mass/Vol] 42 mg/dL >40 [facility] Comment on above: The drugs N-Acetylcy steine and Metamizole may falsely depress this assay. Reference Range HDL <40 mg/dL Low HDL Cholesterol HDL >or= 60 mg/dL High HDL Cholesterol Serum or plasma cholesterol in VLDL measurement (mass/volume)Ordered By: Katt Ramsay on 12-04-2022 Cholesterol in VLDL [Mass/Vol] 49 mg/dL 5-40 [facility] Serum or plasma low density lipoprotein (LDL) cholesterol measurement (mass/volume)Ordered By: Katt Ramsay on 12-04-2022 Cholesterol in LDL [Mass/Vol] 101 mg/dL 0-130 [facility] Thin prep Papanicolaou smear with manual screeningOrdered By: Katt Ramsay on 12-04-2022 Thin prep Papanicolaou smear with manual screening 16 U/L 15-37 [facility] Basophil percentageOrdered B y: Lisa Martell on 10-06-2022 Basophil percentage 3.5 mg/dL 2.5-4.9 [facility] [place] Chloride [Moles/Vol] 107 mmol/L 98-107 [facility] Glucose [Mass/Vol] 179 mg/dL 74-106 [facility] Comment on above: Fasting Glucose resu lt greater than or equal to 126 mg/dL suggests DIABETES MELLITUS per A.D.A. criteria. Potassium [Moles/Vol] 4.6 mmol/L 3.5-5.1 [facility] Sodium [Moles/Vol] 137 mmol/L 136-145 [facility] Laboratory - Chemistry and C hemistry - challengeOrdered By: Lisa Martell on 10-06-2022 CO2 [Moles/Vol] 24.0 mmol/L 21.0-32.0 [facility] Urea nitrogen/Creatinine [Mass ratio] 29.1 mg/mg 10-20 [facility] No Panel InformationOrdered By: Lisa Martell on 10-06-2022 Estimated GFR (MDRD) Amer 44 mL/min >60 [facility] Comment on above: GFR Calc Estimated GFR (MDRD) Non-Af Amer 36 mL/min >60 [facility] Comment on above: Non- GFR Calc Serum or plasma albumin francie urement (mass/volume)Ordered By: Lisa Martell on 10-06-2022 Albumin [Mass/Vol] 3.8 g/dL 3.2-5.0 [facility] Serum or plasma calcium francie urement (mass/volume)Ordered By: Lisa Martell on 10-06-2022 Calcium [Mass/Vol] 9.9 mg/dL 8.5-10.1 [facility] Serum or plasma creatinine m easurement (mass/volume)Ordered By: Lisa Martell on 10-06-2022 Creatinine [Mass/Vol] 1.48 mg/dL 0.55-1.02 [facility] Comment on above: The validity of the calculated GFR & GFRAA in patients over 70 years has not been determined. Clinical correlation is essential. Serum or plasma urea nitroge n measurement (mass/volume)Ordered By: Lisa Martell on 10-06-2022 Urea nitrogen [Mass/Vol] 43 mg/dL 7-18 [facility] Urine creatinine measurement (mass/volume)Ordered By: Lisa Martell on 10-06-2022 Creatinine (U) [Mass/Vol] 93.80 mg/dL NO RANGE EST. [facility] Urine protein measurement (m ass/volume)Ordered By: Lisa Martell on 10-06-2022 Protein (U) [Mass/Vol] 92.3 mg/dL 0.0-11.8 [facility] Urine protein/creatinine mas s ratioOrdered By: Lisa Martell on 10-06-2022 Protein/Creatinine (U) [Mass ratio] 984 mg/g CRE 0-200 [facility] Basophil percentageOrdered B y: Dr. Lindo on 07-07-2022 Chloride [Moles/Vol] 110 mmol/L 98-107 [facility] Glucose [Mass/Vol] 152 mg/dL 74-106 [facility] Comment on above: Fasting Glucose resu lt greater than or equal to 126 mg/dL suggests DIABETES MELLITUS per A.D.A. criteria. Potassium [Moles/Vol] 4.7 mmol/L 3.5-5.1 [facility] Sodium [Moles/Vol] 135 mmol/L 136-145 [facility] WBC (Bld) [#/Vol] 8.8 10*3/uL 4.4-11.0 [facility] Blood erythrocytes count (nu mber/volume)Ordered By: Dr. Lindo on 07-07-2022 RBC (Bld) [#/Vol] 3.94 10*6/uL 4.2-5.4 [facility] [place] Blood hemoglobin measurement (mass/volume)Ordered By: Dr. Lindo on 07-07-2022 Hemoglobin (Bld) [Mass/Vol] 12.4 g/dL 12.0-15.0 [facility] Blood platelet mean volumeOr dered By: Dr. Lindo on 07-07-2022 Platelet mean volume (Bld) [Entitic vol] 10.9 fL 6.2-12.0 [facility] Determination of erythrocyte mean corpuscular volume (MCV)Ordered By: Dr. Lindo on 07-07-2022 MCV (RBC) [Entitic vol] 92.6 fL 81-99 [facility] Hematocrit Auto (Bld) [Volum e fraction]Ordered By: Dr. Lindo on 07-07-2022 Hematocrit (Bld) [Volume fraction] 36.5 % 37-47 [facility] INR in Blood by Coagulation assayOrdered By: Dr. Lindo on 07-07-2022 INR Coag (Bld) [Relative time] 1.1 {INR} [facility] Laboratory - Chemistry and C hemistry - challengeOrdered By: Dr. Lindo on 07-07-2022 CO2 [Moles/Vol] 20.0 mmol/L 21.0-32.0 [facility] Urea nitrogen/Creatinine [Mass ratio] 30.1 mg/mg 10-20 [facility] Laboratory - CoagulationOrde red By: Dr. Lindo on 07-07-2022 aPTT Coag (Bld) [Time] 24.8 s 24.1-36.2 [facility] PT Coag (PPP) [Time] 14.3 s 11.7-14.9 [facility] Laboratory - Hematology and Cell countsOrdered By: Dr. Lindo on 07-07-2022 Erythrocyte distribution width (RBC) [Entitic vol] 43.5 fL 35.1-43.9 [facility] Erythrocyte distribution width (RBC) [Ratio] 12.6 % 11.6-14.6 [facility] MCH (RBC) [Entitic mass] 31.5 pg 27.0-32.0 [facility] MCHC Auto (RBC) [Mass/Vol]Or dered By: Dr. Lindo on 07-07-2022 MCHC (RBC) [Mass/Vol] 34.0 g/dL 32-36 [facility] No Panel InformationOrdered By: Dr. Lindo on 07-07-2022 Estimated GFR (MDRD) Amer 50 mL/min >60 [facility] Comment on above: GFR Calc Estimated GFR (MDRD) Non-Af Amer 41 mL/min >60 [facility] Comment on above: Non- GFR Calc Platelets bldOrdered By: Dr. Lindo on 07-07-2022 Platelets (Bld) [#/Vol] 272 10*3/uL 150-450 [facility] Serum or plasma calcium francie urement (mass/volume)Ordered By: Dr. Lindo on 07-07-2022 Calcium [Mass/Vol] 9.4 mg/dL 8.5-10.1 [facility] Serum or plasma creatinine m easurement (mass/volume)Ordered By: Dr. Lindo on 07-07-2022 Creatinine [Mass/Vol] 1.33 mg/dL 0.55-1.02 [facility] Comment on above: The validity of the calculated GFR & GFRAA in patients over 70 years has not been determined. Clinical correlation is essential. Serum or plasma urea nitroge n measurement (mass/volume)Ordered By: Dr. Lindo on 07-07-2022 Urea nitrogen [Mass/Vol] 40 mg/dL 7-18 [facility] Thin prep Papanicolaou smear with manual screeningOrdered By: Dr. Lindo on 07-07-2022 Thin prep Papanicolaou smear with manual screening 5 5-15 [facility] Urine creatinine measurement (mass/volume)Ordered By: Dr. Martell on 05-11-2022 Creatinine (U) [Mass/Vol] 70.90 mg/dL NO RANGE EST. [facility] Urine protein measurement (m ass/volume)Ordered By: Dr. Martell on 05-11-2022 Protein (U) [Mass/Vol] 141.1 mg/dL 0.0-11.8 [facility] Urine protein/creatinine mas s ratioOrdered By: Dr. Martell on 05-11-2022 Protein/Creatinine (U) [Mass ratio] 1990 mg/g CRE 0-200 [facility] Basophil percentageOrdered B y: Dr. Martell on 05-02-2022 Basophil percentage 3.6 mg/dL 2.5-4.9 [facility] [place] Chloride [Moles/Vol] 106 mmol/L 98-107 [facility] Glucose [Mass/Vol] 177 mg/dL 74-106 [facility] Comment on above: Fasting Glucose resu lt greater than or equal to 126 mg/dL suggests DIABETES MELLITUS per A.D.A. criteria. Potassium [Moles/Vol] 4.2 mmol/L 3.5-5.1 [facility] Sodium [Moles/Vol] 137 mmol/L 136-145 [facility] Laboratory - Chemistry and C hemistry - challengeOrdered By: Dr. Martell on 05-02-2022 CO2 [Moles/Vol] 25.0 mmol/L 21.0-32.0 [facility] Urea nitrogen/Creatinine [Mass ratio] 24.1 mg/mg 10- [facility] No Panel InformationOrdered By: Dr. Martell on 05-02-2022 Estimated GFR (MDRD) Amer 50 mL/min >60 [facility] Comment on above: GFR Calc Estimated GFR (MDRD) Non-Af Amer 41 mL/min >60 [facility] Comment on above: Non- GFR Calc Serum or plasma albumin francie urement (mass/volume)Ordered By: Dr. Martell on 05-02-2022 Albumin [Mass/Vol] 3.9 g/dL 3.2-5.0 [facility] Serum or plasma calcium francie urement (mass/volume)Ordered By: Dr. Martell on 05-02-2022 Calcium [Mass/Vol] 9.6 mg/dL 8.5-10.1 [facility] Serum or plasma creatinine m easurement (mass/volume)Ordered By: Dr. Martell on 05-02-2022 Creatinine [Mass/Vol] 1.33 mg/dL 0.55-1.02 [facility] Comment on above: The validity of the calculated GFR & GFRAA in patients over 70 years has not been determined. Clinical correlation is essential. Serum or plasma urea nitroge n measurement (mass/volume)Ordered By: Dr. Martell on 05-02-2022 Urea nitrogen [Mass/Vol] 32 mg/dL - [facility] Absolute lymphocyte countOrd ered By: Dr. Solorzano on 02-08-2022 Lymphocytes Auto (Unsp spec) [#/Vol] 1.97 10*3/uL 0.83-4.51 [facility] Basophil percentageOrdered B y: Dr. Solorzano on 02-08-2022 Basophils/100 WBC (Bld) 1.0 % 0-1 [facility] Eosinophils/100 WBC (Bld) 2.3 % 0-5 [facility] Neutrophils (Bld) [#/Vol] 8.2 10*3/uL 2.0-7.7 [facility] Neutrophils/100 WBC (Bld) 71.6 % 47-70 [facility] WBC (Bld) [#/Vol] 11.5 10*3/uL 4.4-11.0 [facility] [place] Basophil percentageOrdered B y: Dr. Adams on 02-08-2022 Bilirubin [Mass/Vol] 0.60 mg/dL 0.20-1.00 [facility] Comment on above: For patients on eltr ombopag therapy, use of Dim[place] TBIL is not recommended. Chloride [Moles/Vol] 109 mmol/L 98-107 [facility] Glucose [Mass/Vol] 108 mg/dL 74-106 [facility] Comment on above: Fasting Glucose resu lt from 100 to 125 mg/dL suggests IMPAIRED HOMEOSTASIS per A.D.A. criteria. Potassium [Moles/Vol] 4.6 mmol/L 3.5-5.1 [facility] Protein [Mass/Vol] 6.4 g/dL 6.4-8.2 [facility] Sodium [Moles/Vol] 136 mmol/L 136-145 [facility] Blood erythrocytes count (nu mber/volume)Ordered By: Dr. Solorzano on 02-08-2022 RBC (Bld) [#/Vol] 3.59 10*6/uL 4.2-5.4 [facility] [place] Blood hemoglobin measurement (mass/volume)Ordered By: Dr. Solorzano on 02-08-2022 Hemoglobin (Bld) [Mass/Vol] 10.9 g/dL 12.0-15.0 [facility] Blood lymphocytes/100 leukoc ytesOrdered By: Dr. Solorzano on 02-08-2022 Lymphocytes/100 WBC (Bld) 17.1 % 19-41 [facility] Blood monocytes/100 leukocyt esOrdered By: Dr. Solorzano on 02-08-2022 Monocytes/100 WBC (Bld) 7.5 % 0-[address] [facility] Blood platelet mean volumeOr dered By: Dr. Solorzano on 02-08-2022 Platelet mean volume (Bld) [Entitic vol] 12.0 fL 6.2-12.0 [facility] Determination of erythrocyte mean corpuscular volume (MCV)Ordered By: Dr. Solorzano on 02-08-2022 MCV (RBC) [Entitic vol] 89.4 fL 81-99 [facility] Hematocrit Auto (Bld) [Volum e fraction]Ordered By: Dr. Solorzano on 02-08-2022 Hematocrit (Bld) [Volume fraction] 32.1 % 37-47 [facility] Laboratory - Chemistry and C hemistry - challengeOrdered By: Dr. Adams on 02-08-2022 ALP [Catalytic activity/Vol] 108 U/L 45-117 [facility] ALT [Catalytic activity/Vol] 15 U/L 13-56 [facility] CO2 [Moles/Vol] 22.0 mmol/L 21.0-32.0 [facility] Globulin (S) [Mass/Vol] 3.0 g/dL 2.2-4.[address] [facility] Urea nitrogen/Creatinine [Mass ratio] 26.5 mg/mg 10-20 [facility] Laboratory - Hematology and Cell countsOrdered By: Dr. Solorzano on 02-08-2022 Erythrocyte distribution width (RBC) [Entitic vol] 40.8 fL 35.1-43.9 [facility] Erythrocyte distribution width (RBC) [Ratio] 12.5 % 11.6-14.6 [facility] Immature granulocytes/100 WBC (Bld) 0.500 % 0.0-0.9 [facility] Comment on above: IG% - Immature Granu locytes (promyelocytes, myelocytes and metamyelocytes) > 1% indicates that a LEFT SHIFT is Present. MCH (RBC) [Entitic mass] 30.4 pg 27.0-32.0 [facility] Nucleated RBC/100 WBC (Bld) [Ratio] 0 % 0-5 [facility] MCHC Auto (RBC) [Mass/Vol]Or dered By: Dr. Solorzano on 02-08-2022 MCHC (RBC) [Mass/Vol] 34.0 g/dL 32-36 [facility] No Panel InformationOrdered By: Dr. Adams on 02-08-2022 Estimated Creatinine Clearance Calc 29.84 ml/min [facility] Estimated GFR (MDRD) Amer 58 mL/min >60 [facility] Comment on above: GFR Calc Estimated GFR (MDRD) Non-Af Amer 48 mL/min >60 [facility] Comment on above: Non- GFR Calc Platelets bldOrdered By: Dr. Solorzano on 02-08-2022 Platelets (Bld) [#/Vol] 259 10*3/uL 150-450 [facility] Serum or plasma albumin francie urement (mass/volume)Ordered By: Dr. Adams on 02-08-2022 Albumin [Mass/Vol] 3.4 g/dL 3.2-5.0 [facility] Serum or plasma albumin/glob ulin mass ratioOrdered By: Dr. Adams on 02-08-2022 Albumin/Globulin [Mass ratio] 1.1 {ratio} 0.9-2.4 [facility] Serum or plasma calcium francie urement (mass/volume)Ordered By: Dr. Adams on 02-08-2022 Calcium [Mass/Vol] 9.7 mg/dL 8.5-10.1 [facility] Serum or plasma creatinine m easurement (mass/volume)Ordered By: Dr. Adams on 02-08-2022 Creatinine [Mass/Vol] 1.17 mg/dL 0.55-1.02 [facility] Comment on above: The validity of the calculated GFR & GFRAA in patients over 70 years has not been determined. Clinical correlation is essential. Serum or plasma urea nitroge n measurement (mass/volume)Ordered By: Dr. Adasm on 02-08-2022 Urea nitrogen [Mass/Vol] 31 mg/dL 7-18 [facility] Thin prep Papanicolaou smear with manual screeningOrdered By: Dr. Adams on 02-08-2022 Thin prep Papanicolaou smear with manual screening 16 U/L 15-37 [facility] Thin prep Papanicolaou smear with manual screening 5 5-15 [facility] Bilirubin Test strip Ql (U)O rdered By: Dr. Solorzano on 02-07-2022 Bilirubin Ql (U) Negative Negative [facility] Ketones Test strip Ql (U)Ord ered By: Dr. Solorzano on 02-07-2022 Ketones Ql (U) Negative Negative [facility] Laboratory - CoagulationOrde red By: Dr. Solorzano on 02-07-2022 aPTT Coag (Bld) [Time] 27.0 s 24.1-36.2 [facility] Nitrite Test strip Ql (U)Ord ered By: Dr. Solorzano on 02-07-2022 Nitrite Ql (U) Negative Negative [facility] Protein Test strip Ql (U)Ord ered By: Dr. Solorzano on 02-07-2022 Protein Ql (U) 30 mg/dl Negative [facility] Urine blood detectionOrdered By: Dr. Solorzano on 02-07-2022 RBC Ql (U) 10 /ul Negative [facility] Urine clarityOrdered By: Dr. Solorzano on 02-07-2022 Clarity (U) Clear Clear [facility] Urine color determinationOrd ered By: Dr. Solorzano on 02-07-2022 Color (U) Straw Yellow [facility] Urine glucose detectionOrder ed By: Dr. Solorzano on 02-07-2022 Glucose Ql (U) Normal mg/dl Normal [facility] Urine leukocyte esterase det ection by dipstickOrdered By: Dr. Solorzano on 02-07-2022 Leukocyte esterase Test strip Ql (U) Negative Negative [facility] Urine pHOrdered By: Dr. Zenaida hollingsworth on 02-07-2022 pH (U) 6.0 [pH] 5.0 - 8.0 [facility] Urine specific gravity measu rementOrdered By: Dr. Solorzano on 02-07-2022 Specific gravity (U) [Rel density] 1.010 1.002-1.030 [facility] Urobilinogen Auto test strip Ql (U)Ordered By: Dr. Solorzano on 02-07-2022 Urobilinogen Ql (U) Normal mg/dl Normal [facility] Basophil percentageon 2021 Potassium [Moles/Vol] 4.6 mmol/L 3.5-5.1 [facility] Work Phone: Basophil percentageon 2021 Potassium [Moles/Vol] 5.8 mmol/L 3.5-5.1 [facility] Work Phone: Laboratory - Chemistry and C hemistry - challengeon 12-07-2021 Magnesium [Mass/Vol] 2.0 mg/dL 1.6-2.6 [facility] Work Phone: Basophil percentageon 2021 Basophil percentage 3.1 mg/dL 2.5-4.9 [facility] [place] Work Phone: Chloride [Moles/Vol] 108 mmol/L 98-107 [facility] Work Phone: Glucose [Mass/Vol] 96 mg/dL 74-106 [facility] Work Phone: Potassium [Moles/Vol] 5.3 mmol/L 3.5-5.1 [facility] Work Phone: Sodium [Moles/Vol] 138 mmol/L 136-145 [facility] Work Phone: Laboratory - Chemistry and C hemistry - challengeon 11-30-2021 CO2 [Moles/Vol] 25.0 mmol/L 21.0-32.0 [facility] Work Phone: Urea nitrogen/Creatinine [Mass ratio] 29.9 mg/mg 10-20 [facility] [facility] Work Phone: No Panel Informationon 11-30 Estimated GFR (MDRD) Amer 48 mL/min >60 [facility] Work Phone: Comment on above: GFR Calc Estimated GFR (MDRD) Non-Af Amer 40 mL/min >60 [facility] Work Phone: Comment on above: Non- GFR Calc Serum or plasma albumin francie urement (mass/volume)on 11-30-2021 Albumin [Mass/Vol] 3.7 g/dL 3.2-5.0 [facility] Work Phone: Serum or plasma calcium francie urement (mass/volume)on 11-30-2021 Calcium [Mass/Vol] 9.8 mg/dL 8.5-10.1 [facility] Work Phone: [phone] Serum or plasma creatinine m easurement (mass/volume)on 11-30-2021 Creatinine [Mass/Vol] 1.37 mg/dL 0.55-1.02 [facility] Work Phone: Comment on above: The validity of the calculated GFR & GFRAA in patients over 70 years has not been determined. Clinical correlation is essential. Serum or plasma urea nitroge n measurement (mass/volume)on 11-30-2021 Urea nitrogen [Mass/Vol] 41 mg/dL 7-18 [facility] Work Phone: Urine creatinine measurement (mass/volume)on 11-30-2021 Creatinine (U) [Mass/Vol] 82.30 mg/dL NO RANGE EST. [facility] Work Phone: Urine protein measurement (m ass/volume)on 11-30-2021 Protein (U) [Mass/Vol] 67.1 mg/dL 0.0-11.8 [facility] Work Phone: Urine protein/creatinine mas s ratioon 11-30-2021 Protein/Creatinine (U) [Mass ratio] 815 mg/g CRE 0-200 [facility] Work Phone: Basophil percentageon 2021 Bilirubin [Mass/Vol] 0.50 mg/dL 0.20-1.00 [facility] Work Phone: [phone] Comment on above: For patients on eltr ombopag therapy, use of Dimension [place] TBIL is not recommended. Chloride [Moles/Vol] 108 mmol/L 98-107 [facility] Work Phone: Cholesterol [Mass/Vol] 201 mg/dL <200 [facility] Work Phone: [phone] Comment on above: <200 mg/dL Desirable 200-240 mg/dL Borderline >240 mg/dL High Risk Glucose [Mass/Vol] 110 mg/dL 74-106 [facility] Work Phone: Comment on above: Fasting Glucose resu lt from 100 to 125 mg/dL suggests IMPAIRED HOMEOSTASIS per A.D.A. criteria. Potassium [Moles/Vol] 5.0 mmol/L 3.5-5.1 [facility] Work Phone: [phone] Protein [Mass/Vol] 7.4 g/dL 6.4-8.2 [facility] Work Phone: [phone] Sodium [Moles/Vol] 139 mmol/L 136-145 [facility] Work Phone: [phone] Triglyceride [Mass/Vol] 170 mg/dL <199 [facility] Work Phone: [phone] Comment on above: The drugs N-Acetylcy steine and Metamizole may falsely depress this assay.Serum Triglycerides Reference Interval Normal <150 mg/dL Borderline high 150 - 199 mg/dL High 200 - 499 mg/dL Very High > or = 500 mg/dL Direct bilirubinon 2 Bilirubin.direct [Mass/Vol] 0.15 mg/dL 0.00-0.30 [facility] Work Phone: [phone] Laboratory - Chemistry and C hemistry - challengeon 09-06-2021 ALP [Catalytic activity/Vol] 106 U/L 45-117 [facility] Work Phone: [phone] ALT [Catalytic activity/Vol] 19 U/L 13-56 [facility] Work Phone: [phone] CO2 [Moles/Vol] 27.0 mmol/L 21.0-32.0 [facility] Work Phone: [phone] Globulin (S) [Mass/Vol] 3.5 g/dL 2.2-4.2 [facility] Work Phone: [phone] Urea nitrogen/Creatinine [Mass ratio] 27.4 mg/mg 10-20 [facility] Work Phone: [phone] No Panel Informationon 09-06 Estimated GFR (MDRD) Amer 54 mL/min >60 [facility] Work Phone: Comment on above: GFR Calc Estimated GFR (MDRD) Non-Af Amer 45 mL/min >60 [facility] Work Phone: Comment on above: Non- GFR Calc Serum or plasma albumin francie urement (mass/volume)on 09-06-2021 Albumin [Mass/Vol] 3.9 g/dL 3.2-5.0 [facility] Work Phone: Serum or plasma calcium francei urement (mass/volume)on 09-06-2021 Calcium [Mass/Vol] 9.7 mg/dL 8.5-10.1 [facility] Work Phone: Serum or plasma cholesterol in HDL measurement (mass/volume)on 09-06-2021 Cholesterol in HDL [Mass/Vol] 39 mg/dL >40 [facility] Work Phone: Comment on above: The drugs N-Acetylcy steine and Metamizole may falsely depress this assay. Reference Range HDL <40 mg/dL Low HDL Cholesterol HDL >or= 60 mg/dL High HDL Cholesterol Serum or plasma cholesterol in VLDL measurement (mass/volume)on 09-06-2021 Cholesterol in VLDL [Mass/Vol] 34 mg/dL 5-40 [facility] Work Phone: Serum or plasma creatinine m easurement (mass/volume)on 09-06-2021 Creatinine [Mass/Vol] 1.24 mg/dL 0.55-1.02 [facility] Work Phone: Comment on above: The validity of the calculated GFR & GFRAA in patients over 70 years has not been determined. Clinical correlation is essential. Serum or plasma low density lipoprotein (LDL) cholesterol measurement (mass/volume)on 09-06-2021 Cholesterol in LDL [Mass/Vol] 128 mg/dL 0-130 [facility] Work Phone: Serum or plasma urea nitroge n measurement (mass/volume)on 09-06-2021 Urea nitrogen [Mass/Vol] 34 mg/dL 7-18 [facility] Work Phone: Thin prep Papanicolaou smear with manual screeningon 09-06-2021 Thin prep Papanicolaou smear with manual screening 14 U/L 15-37 [facility] Work Phone: Thin prep Papanicolaou smear with manual screening 4 5-15 [facility] Work Phone: Basophil percentageon 2021 Basophil percentage 2.8 mg/dL 2.5-4.9 [facility] Work Phone: Chloride [Moles/Vol] 107 mmol/L 98-107 [facility] Work Phone: Glucose [Mass/Vol] 95 mg/dL 74-106 [facility] Work Phone: Potassium [Moles/Vol] 4.2 mmol/L 3.5-5.1 [facility] Work Phone: Sodium [Moles/Vol] 139 mmol/L 136-145 [facility] Work Phone: Laboratory - Chemistry and C hemistry - challengeon 08-23-2021 CO2 [Moles/Vol] 22.0 mmol/L 21.0-32.0 [facility] Work Phone: Urea nitrogen/Creatinine [Mass ratio] 24.8 mg/mg 10-20 [facility] Work Phone: No Panel Informationon 08-23 Estimated GFR (MDRD) Amer 50 mL/min >60 [facility] Work Phone: Comment on above: GFR Calc Estimated GFR (MDRD) Non-Af Amer 41 mL/min >60 [facility] Work Phone: Comment on above: Non- GFR Calc Serum or plasma albumin francie urement (mass/volume)on 08-23-2021 Albumin [Mass/Vol] 3.8 g/dL 3.2-5.0 [facility] Work Phone: Serum or plasma calcium francie urement (mass/volume)on 08-23-2021 Calcium [Mass/Vol] 10.2 mg/dL 8.5-10.1 [facility] Work Phone: Serum or plasma creatinine m easurement (mass/volume)on 08-23-2021 Creatinine [Mass/Vol] 1.33 mg/dL 0.55-1.02 [facility] Work Phone: Comment on above: The validity of the calculated GFR & GFRAA in patients over 70 years has not been determined. Clinical correlation is essential. Serum or plasma urea nitroge n measurement (mass/volume)on 08-23-2021 Urea nitrogen [Mass/Vol] 33 mg/dL 7-18 [facility] Work Phone: Basophil percentageon 2021 Basophil percentage 3.0 mg/dL 2.5-4.9 [facility] Work Phone: Chloride [Moles/Vol] 108 mmol/L 98-107 [facility] Work Phone: Glucose [Mass/Vol] 137 mg/dL 74-106 [facility] Work Phone: Comment on above: Fasting Glucose resu lt greater than or equal to 126 mg/dL suggests DIABETES MELLITUS per A.D.A. criteria. Potassium [Moles/Vol] 4.8 mmol/L 3.5-5.1 [facility] Work Phone: Sodium [Moles/Vol] 138 mmol/L 136-145 [facility] Work Phone: Laboratory - Chemistry and C hemistry - challengeon 07-26-2021 CO2 [Moles/Vol] 23.0 mmol/L 21.0-32.0 [facility] Work Phone: Urea nitrogen/Creatinine [Mass ratio] 33.9 mg/mg 10-20 [facility] Work Phone: No Panel Informationon 07-26 Estimated GFR (MDRD) Amer 53 mL/min >60 [facility] Work Phone: Comment on above: GFR Calc Estimated GFR (MDRD) Non-Af Amer 44 mL/min >60 [facility] Work Phone: Comment on above: Non- GFR Calc Serum or plasma albumin francie urement (mass/volume)on 07-26-2021 Albumin [Mass/Vol] 3.8 g/dL 3.2-5.0 [facility] Work Phone: Serum or plasma calcium francie urement (mass/volume)on 07-26-2021 Calcium [Mass/Vol] 9.6 mg/dL 8.5-10.1 [facility] Work Phone: Serum or plasma creatinine m easurement (mass/volume)on 07-26-2021 Creatinine [Mass/Vol] 1.27 mg/dL 0.55-1.02 [facility] Work Phone: Comment on above: The validity of the calculated GFR & GFRAA in patients over 70 years has not been determined. Clinical correlation is essential. Serum or plasma urea nitroge n measurement (mass/volume)on 07-26-2021 Urea nitrogen [Mass/Vol] 43 mg/dL 7-18 [facility] Work Phone: Urine creatinine measurement (mass/volume)on 07-26-2021 Creatinine (U) [Mass/Vol] 98.00 mg/dL NO RANGE EST. [facility] Work Phone: Urine protein measurement (m ass/volume)on 07-26-2021 Protein (U) [Mass/Vol] 92.1 mg/dL 0.0-11.8 [facility] Work Phone: Urine protein/creatinine mas s ratioon 07-26-2021 Protein/Creatinine (U) [Mass ratio] 940 mg/g CRE 0-200 [facility] Work Phone: Vital Signs Date Time Vital Sign Value Performing Clinician Facility 09-30-2024 13:40-0400 Body height 149.[address] Katt Ramsay MD Work Phone: [facility] 09-30-2024 13:40-0400 Body mass index (BMI) [Ratio] 27.6 kg/m2 Dr. Katt Ramsay MD Work Phone: [facility] 09-30-2024 13:40-0400 Body weight 62.[address] Katt Ramsay MD Work Phone: [facility] 09-30-2024 13:40-0400 Diastolic blood pressure 72 mm[Hg] Dr. Katt Ramsay MD Work Phone: [phone] [place] [address] 09-30-2024 13:40-0400 Heart rate 82 /min Dr. Katt Ramsay MD Work Phone: [phone] [place] [address] 09-30-2024 13:40-0400 Respiratory rate 16 /min Dr. Katt Ramsay MD Work Phone: [phone] [place] [address] 09-30-2024 13:40-0400 Systolic blood pressure 118 mm[Hg] Dr. Katt Ramsay MD Work Phone: [phone] [address] 06-24-2024 12:29-0400 Body temperature 98.3 [degF] Dr. Katt Ramsay MD Work Phone: [phone] [place] [address] 06-24-2024 12:29-0400 Diastolic blood pressure 68 mm[Hg] Dr. Katt Ramsay MD Work Phone: [phone] [address] 06-24-2024 12:29-0400 Heart rate 83 /min Dr. Katt Ramsay MD Work Phone: [phone] [address] 06-24-2024 12:29-0400 Respiratory rate 17 /min Dr. Katt Ramsay MD Work Phone: [facility] 06-24-2024 12:29-0400 SaO2% (BldA) [Mass fraction] 94 % Dr. Katt Ramsay MD Work Phone: [phone] [place] [address] 06-24-2024 12:29-0400 Systolic blood pressure 108 mm[Hg] Dr. Katt Ramsay MD Work Phone: [facility] 08-14-2023 12:59-0400 Respiratory rate 16 /min Eriberto Kimball MD Work Phone: [facility] 08-14-2023 12:39-0400 Diastolic blood pressure 67 mm[Hg] Eriberto Kimball MD Work Phone: [facility] 08-14-2023 12:39-0400 Systolic blood pressure 147 mm[Hg] Eriberto Kimball MD Work Phone: [facility] 08-14-2023 12:29-0400 Heart rate 59 /min Eriberto Kimball MD Work Phone: [facility] 08-14-2023 12:29-0400 SaO2% (BldA) [Mass fraction] 96 % Eriberto Kimball MD Work Phone: [facility] 08-14-2023 11:29-0400 Body mass index (BMI) [Ratio] 26.27 kg/m2 Eriberto Kimball MD Work Phone: [facility] 08-14-2023 11:29-0400 Body temperature 97.81 [degF] Eriberto Kimball MD Work Phone: [facility] 08-14-2023 11:29-0400 Body weight 59 kg Eriberto Kimball MD Work Phone: [facility] 07-16-2023 15:16-0400 Body height 149.[address] Katt Ramsay Work Phone: [facility] 07-16-2023 15:16-0400 Body mass index (BMI) [Ratio] 26.2 kg/m2 Dr. Katt Ramsay Work Phone: [facility] 07-16-2023 15:16-0400 Body temperature 97.3 [degF] Dr. Katt Ramsay Work Phone: [facility] 07-16-2023 15:16-0400 Body weight 58.[address] Katt Ramsay Work Phone: [facility] 07-16-2023 15:16-0400 Heart rate 103 /min Dr. Katt Ramsay Work Phone: [facility] 07-16-2023 15:16-0400 Respiratory rate 16 /min Dr. Katt Ramsay Work Phone: [facility] 07-16-2023 15:16-0400 SaO2% (BldA) [Mass fraction] 97 % Dr. Katt Ramsay Work Phone: [facility] 05-04-2023 01:05-0500 Body temperature 97.5 [degF] Dr. Katt Ramsay Work Phone: [facility] 05-04-2023 01:05-0500 Diastolic blood pressure 60 mm[Hg] Dr. Katt Ramsay Work Phone: [facility] 05-04-2023 01:05-0500 Heart rate 78 /min Dr. Katt Ramsay Work Phone: [phone] [place] [address] 05-04-2023 01:05-0500 Respiratory rate 17 /min Dr. Katt Ramsay Work Phone: [facility] 05-04-2023 01:05-0500 SaO2% (BldA) [Mass fraction] 97 % Dr. Katt Ramsay Work Phone: [facility] 05-04-2023 01:05-0500 Systolic blood pressure 146 mm[Hg] Dr. Katt Ramsay Work Phone: [facility] 05-03-2023 21:17-0500 Body height 149.[address] Katt Ramsay Work Phone: [facility] 05-03-2023 21:17-0500 Body mass index (BMI) [Ratio] 26 kg/m2 Dr. Katt Ramsay Work Phone: [facility] 05-03-2023 21:17-0500 Body weight 58.[address] Katt Ramsay Work Phone: [facility] 04-25-2023 19:08-0500 Diastolic Blood Pressure Non-Invasive 70 mm[Hg] DR HUMBERTO WHALEN MD [facility] 04-25-2023 19:08-0500 Heart rate 61 /min DR HUMBERTO WHALEN MD [facility] 04-25-2023 19:08-0500 Mean blood pressure 93 mm[Hg] DR HUMBERTO WHALEN MD [facility] 04-25-2023 19:08-0500 Respiratory rate 16 /min DR HUMBERTO WHALEN MD [facility] 04-25-2023 19:08-0500 Systolic Blood Pressure Non-Invasive 165 mm[Hg] DR HUMBERTO WHALEN MD [facility] 04-25-2023 15:10-0500 Body temperature 96.98 [degF] DR HUMBERTO WHALEN MD [facility] 04-25-2023 15:10-0500 Diastolic Blood Pressure Non-Invasive 42 mm[Hg] DR HUMBERTO WHALEN MD [facility] 04-25-2023 15:10-0500 Heart rate 81 /min DR HUMBERTO WHALEN MD [facility] 04-25-2023 15:10-0500 Respiratory rate 16 /min DR HUMBERTO WHALEN MD [facility] 04-25-2023 15:10-0500 Systolic Blood Pressure Non-Invasive 190 mm[Hg] DR HUMBERTO WHALEN MD [facility] 04-25-2023 14:00-0500 Body height 149.[address] Katt Ramsay Work Phone: [facility] 04-25-2023 14:00-0500 Body temperature 96.2 [degF] Dr. Katt Ramsay Work Phone: [facility] 04-25-2023 14:00-0500 Diastolic blood pressure 53 mm[Hg] Dr. Katt Ramsay Work Phone: [facility] 04-25-2023 14:00-0500 Heart rate 86 /min Dr. Katt Ramsay Work Phone: [facility] 04-25-2023 14:00-0500 Respiratory rate 14 /min Dr. Katt Ramsay Work Phone: [facility] 04-25-2023 14:00-0500 SaO2% (BldA) [Mass fraction] 99 % Dr. Katt Ramsay Work Phone: [facility] 04-25-2023 14:00-0500 Systolic blood pressure 156 mm[Hg] Dr. Katt Ramsay Work Phone: [facility] 03-29-2023 09:19-0500 Body mass index (BMI) [Ratio] 25.6 kg/m2 Dr. Katt Ramsay Work Phone: [facility] 03-29-2023 09:19-0500 Body weight 57.[address] Katt Ramsay Work Phone: [facility] 03-29-2023 09:19-0500 Diastolic blood pressure 69 mm[Hg] Dr. Katt Ramsay Work Phone: [facility] 03-29-2023 09:19-0500 Heart rate 69 /min Dr. Katt Ramsay Work Phone: [facility] 03-29-2023 09:19-0500 Respiratory rate 16 /min Dr. Katt Ramsay Work Phone: [facility] 03-29-2023 09:19-0500 Systolic blood pressure 159 mm[Hg] Dr. Katt Ramsay Work Phone: [facility] 03-09-2023 18:55-0500 Diastolic Blood Pressure Non-Invasive 98 mm[Hg] JALYN MCADAMS MD [facility] 03-09-2023 18:55-0500 Heart rate 80 /min JALYN MCADAMS MD [facility] 03-09-2023 18:55-0500 Respiratory rate 16 /min JALYN MCADAMS MD [facility] 03-09-2023 18:55-0500 Systolic Blood Pressure Non-Invasive 126 mm[Hg] JALYN MCADAMS MD [facility] 03-09-2023 15:30-0500 Body height 152.4 cm JALYN MCADAMS MD [facility] 03-09-2023 15:30-0500 Body temperature 97.52 [degF] JALYN MCADAMS MD [facility] 03-09-2023 15:30-0500 Body weight 61.4 kg JALYN MCADAMS MD [facility] 03-09-2023 15:30-0500 Diastolic Blood Pressure Non-Invasive 76 mm[Hg] JALYN MCADAMS MD [facility] 03-09-2023 15:30-0500 Heart rate 75 /min JALYN MCADAMS MD [facility] 03-09-2023 15:30-0500 Respiratory rate 16 /min JALYN MCADAMS MD [facility] 03-09-2023 15:30-0500 Systolic Blood Pressure Non-Invasive 184 mm[Hg] JALYN MCADAMS MD [facility] 01-17-2023 10:12-0400 Body height 149.[address] Katt Ramsay Work Phone: [facility] 01-17-2023 10:12-0400 Body mass index (BMI) [Ratio] 27.2 kg/m2 Dr. Katt Ramsay Work Phone: [facility] 01-17-2023 10:12-0400 Body temperature 98 [degF] Dr. Katt Ramsay Work Phone: [facility] 01-17-2023 10:12-0400 Body weight 61.[address] Katt Ramsay Work Phone: [facility] 01-17-2023 10:12-0400 Diastolic blood pressure 75 mm[Hg] Dr. Katt Ramsay Work Phone: [facility] 01-17-2023 10:12-0400 Heart rate 91 /min Dr. Katt Ramsay Work Phone: [facility] 01-17-2023 10:12-0400 Respiratory rate 16 /min Dr. Katt Ramsay Work Phone: [facility] 01-17-2023 10:12-0400 SaO2% (BldA) [Mass fraction] 94 % Dr. Katt Ramsay Work Phone: [facility] 01-17-2023 10:12-0400 Systolic blood pressure 151 mm[Hg] Dr. Katt Ramsay Work Phone: [facility] 09-25-2022 12:54-0400 Body height 152.[address] Katt Ramsay Work Phone: [facility] 09-25-2022 12:54-0400 Body mass index (BMI) [Ratio] 26.9 kg/m2 Dr. Katt Ramsay Work Phone: [facility] 09-25-2022 12:54-0400 Body weight 62.[address] Katt Ramsay Work Phone: [facility] 09-25-2022 12:54-0400 Diastolic blood pressure 72 mm[Hg] Dr. Katt Ramsay Work Phone: [facility] 09-25-2022 12:54-0400 Heart rate 70 /min Dr. Katt Ramsay Work Phone: [facility] 09-25-2022 12:54-0400 Respiratory rate 16 /min Dr. Katt Ramsay Work Phone: [facility] 09-25-2022 12:54-0400 Systolic blood pressure 152 mm[Hg] Dr. Katt Ramsay Work Phone: [facility] 07-13-2022 11:26-0400 Body height 152.[address] Katt Ramsay Work Phone: [facility] 07-13-2022 11:26-0400 Body weight 63.[address] Katt Ramsay Work Phone: [facility] 07-12-2022 08:39-0400 Body mass index (BMI) [Ratio] 27.3 kg/m2 Dr. Katt Ramsay Work Phone: [facility] 06-28-2022 13:59-0400 Body height 152.[address] Katt Ramsay Work Phone: [facility] 06-28-2022 13:59-0400 Body mass index (BMI) [Ratio] 27.4 kg/m2 Dr. Katt Ramsay Work Phone: [facility] 06-28-2022 13:59-0400 Body weight 63.[address] Katt Ramsay Work Phone: [facility] 06-28-2022 13:59-0400 Diastolic blood pressure 64 mm[Hg] Dr. Katt Ramsay Work Phone: [facility] 06-28-2022 13:59-0400 Heart rate 60 /min Dr. Katt Ramsay Work Phone: [facility] 06-28-2022 13:59-0400 Respiratory rate 18 /min Dr. Katt Ramsay Work Phone: [facility] 06-28-2022 13:59-0400 Systolic blood pressure 156 mm[Hg] Dr. Katt Ramsay Work Phone: [facility] 05-30-2022 13:13-0500 Body mass index (BMI) [Ratio] 26.9 kg/m2 Dr. Katt Ramsay Work Phone: [facility] 05-30-2022 13:13-0500 Body weight 62.[address] Katt Ramsay Work Phone: [facility] 05-30-2022 13:13-0500 Diastolic blood pressure 70 mm[Hg] Dr. Katt Ramsay Work Phone: [facility] 05-30-2022 13:13-0500 Heart rate 67 /min Dr. Katt Ramsay Work Phone: [facility] 05-30-2022 13:13-0500 Respiratory rate 18 /min Dr. Katt Ramsay Work Phone: [facility] 05-30-2022 13:13-0500 SaO2% (BldA) [Mass fraction] 95 % Dr. Katt Ramsay Work Phone: [facility] 05-30-2022 13:13-0500 Systolic blood pressure 159 mm[Hg] Dr. Katt Ramsay Work Phone: [facility] 02-28-2022 13:50-0500 Body temperature 98.6 [degF] Dr. Katt Ramsay Work Phone: [facility] 02-28-2022 13:50-0500 Body weight 62.[address] Katt Ramsay Work Phone: [facility] 02-28-2022 13:50-0500 Diastolic blood pressure 67 mm[Hg] Dr. Katt Ramsay Work Phone: [facility] 02-28-2022 13:50-0500 Heart rate 60 /min Dr. Katt Ramsay Work Phone: [facility] 02-28-2022 13:50-0500 Respiratory rate 18 /min Dr. Katt Ramsay Work Phone: [facility] 02-28-2022 13:50-0500 SaO2% (BldA) [Mass fraction] 100 % Dr. Katt Ramsay Work Phone: [facility] 02-28-2022 13:50-0500 Systolic blood pressure 127 mm[Hg] Dr. Katt Ramsay Work Phone: [facility] 02-23-2022 10:37-0500 Body height 152.[address] Katt Ramsay Work Phone: [facility] 02-23-2022 10:31-0500 Body mass index (BMI) [Ratio] 26.7 kg/m2 Dr. Katt Ramsay Work Phone: [facility] 02-23-2022 10:31-0500 Body weight 62.[address] Katt Ramsay Work Phone: [facility] 02-23-2022 10:31-0500 Diastolic blood pressure 57 mm[Hg] Dr. Katt Ramsay Work Phone: [facility] 02-23-2022 10:31-0500 Heart rate 52 /min Dr. Katt Ramsay Work Phone: [facility] 02-23-2022 10:31-0500 Respiratory rate 18 /min Dr. Katt Ramsay Work Phone: [facility] 02-23-2022 10:31-0500 Systolic blood pressure 140 mm[Hg] Dr. Katt Ramsay Work Phone: [facility] 02-08-2022 09:26-0400 Diastolic blood pressure 50 mm[Hg] Dr. Katt Ramsay Work Phone: [facility] 02-08-2022 09:26-0400 Heart rate 67 /min Dr. Katt Ramsay Work Phone: [facility] 02-08-2022 09:26-0400 Systolic blood pressure 134 mm[Hg] Dr. Katt Ramsay Work Phone: [facility] 02-08-2022 09:23-0400 Body temperature 97.2 [degF] Dr. Katt Ramsay Work Phone: [facility] 02-08-2022 09:23-0400 Respiratory rate 18 /min Dr. Katt Ramsay Work Phone: [facility] 02-08-2022 09:23-0400 SaO2% (BldA) [Mass fraction] 98 % Dr. Katt Ramsay Work Phone: [facility] 02-07-2022 09:51-0400 Body height 152.[address] Katt Ramsay Work Phone: [facility] Work Phone: 02-07-2022 09:51-0400 Body mass index (BMI) [Ratio] 27.4 kg/m2 Dr. Katt Ramsay Work Phone: [facility] 02-07-2022 09:51-0400 Body weight 63.[address] Katt Ramsay Work Phone: [facility] 01-26-2022 12:47-0400 Diastolic blood pressure 70 mm[Hg] Dr. Katt Ramsay Work Phone: [facility] 01-26-2022 12:47-0400 Systolic blood pressure 142 mm[Hg] Dr. Katt Ramsay Work Phone: [facility] 01-26-2022 12:47-0400 Body mass index (BMI) [Ratio] 27.6 kg/m2 Dr. Katt Ramsay Work Phone: [facility] 01-26-2022 12:47-0400 Body weight 62.[address] Katt Ramsay Work Phone: [facility] 01-26-2022 12:47-0400 Heart rate 67 /min Dr. Katt Ramsay Work Phone: [facility] 01-26-2022 12:47-0400 Respiratory rate 18 /min Dr. Katt Ramsay Work Phone: [facility] Encounters Encounter Date Encounter Type Care Provider Facility Start: 02-10-2025 [facility] Start: 02-10-2025 End: 02-12-2025 Evaluation and management of inpatient Alex Adhikari Facility:[facility] Start: 02-10-2025 ambulatory No Primary Car e Physician Facility:[facility] Start: 01-20-2025 End: 01-20-2025 ambulatory David Medina Facility:[facility] Start: 01-09-2025 Encounter for genera l adult medical examination without abnormal findings Angel Fabiola [facility] Start: 12-26-2024 End: 12-26-[address] Katt Ramsay MD Work Phone: -[facility]atory [facility] Start: 12-26-2024 End: 12-26-[address] Angel Hicks MD -[facility] Start: 12-26-2024 End: 12-26-2024 ambulatory [facility] Facility:[facility] Start: 10-14-2024 Non-patient / Non-visit Dr. Christel Moncada MD -[facility] Work Phone: Start: 09-30-2024 End: 09-30-2024 Patient encounter procedure Zac Phelan NP-Lynda -[facility] Work Phone: Start: 09-30-2024 End: 09-30-[address] Katt Ramsay MD Work Phone: [facility] Work Phone: Start: 08-26-2024 End: 08-26-[address] Katt Ramsay MD Work Phone: [facility] Work Phone: Start: 08-26-2024 End: 08-26-[address] Christel Moncada MD -Ultrasound [facility] Work Phone: Start: 08-26-2024 End: 08-26-2024 ambulatory Christel Moncada Facility:[facility] Start: 07-22-2024 End: 07-22-2024 Patient encounter procedure Talya BOUCHER -[facility] Work Phone: Start: 07-22-2024 End: 07-22-2024 ambulatory Talya Gee Facility:[facility] Start: 07-18-2024 End: 07-18-[address] Katt Ramsay MD Work Phone: [facility] Work Phone: Start: 07-18-2024 End: 07-18-[address] David Medina MD -Laboratory Work Phone: Start: 07-18-2024 End: 07-18-2024 ambulatory David Medina Facility:[facility] Start: 07-01-2024 End: 07-01-[address] Katt Ramsay MD Work Phone: [facility] Work Phone: Start: 07-01-2024 End: 07-01-2024 Patient encounter procedure Talya BOUCHER -Laboratory, Specimen Work Phone: Start: 07-01-2024 End: 07-01-2024 ambulatory Talya Gee Facility:[facility] Start: 06-24-2024 End: 06-24-2024 Patient encounter procedure Darek Talavera AR -[facility] Work Phone: Start: 06-24-2024 End: 06-24-2024 ambulatory Katt Ramsay Facility:[facility] Start: 06-19-2024 End: 06-19-[address] Katt Ramsay MD Work Phone: [facility] Work Phone: Start: 06-19-2024 End: 06-19-2024 Patient encounter procedure Talya BOUCHER -Laboratory Work Phone: Start: 06-19-2024 End: 06-19-2024 ambulatory Talya Gee Facility:[facility] Start: 06-17-2024 End: 06-17-2024 Patient encounter procedure Talya BOUCHER -[facility] Work Phone: Start: 06-17-2024 End: 06-17-2024 ambulatory Talya Gee Facility:[facility] Start: 05-28-2024 ambulatory Zac Phelan NP Facility :[facility] Start: 08-21-2023 Telephone encounter Eriberto Kimball MD Work Phone: General Surgery Comment on above: Results Start: 08-14-2023 End: 08-14-2023 ambulatory ERIBERTO KIMBALL Facility:[facility] Start: 08-14-2023 End: 08-14-2023 Subsequent hospital visit by physician Eriberto Kimball MD Work Phone: Ambulatory Surgery Comment on above: Change in bowel habi ts [R19.4] Start: 08-06-2023 Telephone encounter Eriberto Kimball MD Work Phone: General Surgery Start: 07-24-2023 End: 07-24-[address] Katt Ramsay Work Phone: [facility] Work Phone: Start: 07-24-2023 End: 07-24-[address] Katt Ramsay Work Phone: [facility] Work Phone: Start: 07-16-2023 End: 07-16-[address] Katt Ramsay Work Phone: [facility] Work Phone: Start: 07-16-2023 End: 07-16-[address] Katt Ramsay Work Phone: [facility]-Laboratory, Specimen Work Phone: Start: 07-16-2023 End: 07-16-[address] Katt Ramsay Work Phone: [facility] Work Phone: Start: 06-20-2023 End: 06-20-[address] Katt Ramsay Work Phone: [facility] Work Phone: Start: 06-20-2023 End: 06-20-[address] Katt Ramsay Work Phone: [facility]Laboratory Work Phone: Start: 06-01-2023 Telephone encounter Eriberto Kimball MD Work Phone: General Surgery Comment on above: Appointment; 08/28/19 24 colon.egd asc Start: 05-14-2023 End: 05-14-2023 ambulatory MELLY KOVACHIK Facility:[facility] Start: 05-07-2023 End: 05-07-2023 ambulatory MELLY KOVACUTK Facility:[facility] Start: 05-03-2023 End: 05-04-2023 Emergency department patient visit Dr. Katt Ramsay Work Phone: [facility]-Emergency Department Work Phone: Start: 04-25-2023 End: 04-25-2023 Emergency department patient visit DR HUMBERTO WHALEN MD Facility:[facility] Start: 04-25-2023 End: 04-25-2023 Emergency department patient visit DR HUMBERTO WHALEN MD [facility] Start: 04-25-2023 End: 04-25-2023 Emergency department patient visit Dr. Katt Ramsay Work Phone: [facility]-Emergency Department Work Phone: Start: 04-25-2023 End: 04-26-2023 ambulatory KATT RAMSAY Facility:[facility] Start: 03-29-2023 End: 03-29-[address] Katt Ramsay Work Phone: [facility] Work Phone: Start: 03-09-2023 End: 03-09-2023 Emergency department patient visit DR KATT RAMSAY MD Facility:[facility] Start: 03-09-2023 End: 03-09-2023 Emergency department patient visit JALYN MCADAMS MD [facility] Start: 02-23-2023 End: 02-23-[address] Katt Ramsay Work Phone: [facility] Work Phone: Start: 02-23-2023 End: 02-23-[address] Katt Ramsay Work Phone: [facility], [address] Start: 01-17-2023 End: 01-17-[address] Katt Ramsay Work Phone: [facility] Work Phone: Start: 12-04-2022 End: 12-04-[address] Katt Ramsay Work Phone: [facility] Work Phone: Start: 12-04-2022 End: 12-04-[address] Katt Ramsay Work Phone: [facility] Start: 10-06-2022 End: 10-06-[address] Katt Ramsay Work Phone: [facility] Work Phone: Start: 10-06-2022 End: 10-06-[address] [facility] Start: 09-25-2022 End: 09-25-[address] Katt Ramsay Work Phone: [facility] Work Phone: Start: 07-13-2022 End: 07-13-2022 Admission to same day surgery center Dr. Katt Ramsay Work Phone: [facility]-Leasing Professional/Special Procedures Start: 07-13-2022 End: 07-13-[address] Katt Ramsay Work Phone: [facility] Work Phone: Start: 07-05-2022 Non-patient / Non-visit Dr. Katt Ramsay Work Phone: [facility] Start: 07-05-2022 End: 07-05-[address] Katt Ramsay Work Phone: [facility] Work Phone: Start: 07-05-2022 End: 07-05-[address] Katt Ramsay Work Phone: [facility]-Cardiovascular Services Start: 06-28-2022 End: 06-28-[address] Katt Ramsay Work Phone: [facility] Start: 05-30-2022 End: 05-30-[address] Katt Ramsay Work Phone: [facility] Start: 05-11-2022 End: 05-11-[address] Katt Ramsay Work Phone: [facility] Work Phone: Start: 05-11-2022 End: 05-11-[address] Katt Ramsay Work Phone: [facility]-Laboratory, y Office 3rd Flr Start: 05-02-2022 End: 05-02-[address] Katt Ramsay Work Phone: [facility] Work Phone: Start: 05-02-2022 End: 05-02-[address] Katt Ramsay Work Phone: [facility], y Office 3rd Flr Start: 03-15-2022 Non-patient / Non-visit Dr. Katt Ramsay Work Phone: [facility] Start: 03-15-2022 End: 03-15-[address] Katt Ramsay Work Phone: [facility] Work Phone: Start: 03-15-2022 End: 03-15-[address] Katt Ramsay Work Phone: [facility]-Cardiovascular Services Start: 02-28-2022 End: 02-28-[address] Katt Ramsay Work Phone: [facility] Surgery Start: 02-23-2022 End: 02-23-[address] Katt Ramsay Work Phone: [facility] Start: 02-08-2022 Non-patient / Non-visit Dr. Katt Ramsay Work Phone: [facility] Start: 02-07-2022 End: 02-08-2022 Evaluation and management of inpatient Dr. Katt Ramsay Work Phone: [facility]-Progressive Care Unit Start: 02-07-2022 End: 02-08-[address] Katt Ramsay Work Phone: [facility] Work Phone: Start: 02-07-2022 Non-patient / Non-visit Dr. Katt Ramsay Work Phone: [facility] Start: 01-26-2022 End: 01-26-[address] Katt Ramsay Work Phone: [facility] Start: 12-09-2021 End: 12-09-2021 Patient encounter procedure [facility]-Laboratory, [place] [facility] 3rd Flr Start: 12-07-2021 End: 12-07-[address] [facility] Work Phone: Start: 12-07-2021 End: 12-07-2021 [facility] Start: 11-30-2021 End: 11-30-2021 Patient encounter procedure [facility]-Laboratory, [facility] Office 3rd Flr Start: 09-06-2021 End: 09-06-2021 Patient encounter procedure [facility], [facility] Start: 08-23-2021 End: 08-23-2021 [facility] 3[facility] Flr Start: 07-26-2021 End: 07-26-2021 [facility] 3[facility] Flr Procedures Date Procedure Procedure Detail Performing Clinician Start: 08-26-2024 Complete ultrasound of kidneys and bladder Dr. Katt Ramsay MD Work Phone: Start: 07-18-[address] Katt Ramsay MD Work Phone: Start: 07-18-2024 Serum inorganic phosphate measurement Dr. Katt Ramsay MD Work Phone: Start: 07-18-2024 Vitamin D, 25-hydroxy measurement Dr. Filemon Ramsay MD Work Phone: Comment on above: Vitamin D StatusDeficiency: <20 ng/mL (5 0nmol/L)Insufficiency: 20-30 ng/mL (50-75 nmol/L)Sufficiency: 30-100 ng/mL (75-250 nmol/L)Toxicity: >100 ng/mL (>250 nmol/L) Start: 07-01-[address] Katt Ramsay MD Work Phone: Start: 07-01-[address] Katt Ramsay MD Work Phone: Start: 07-01-20[address]va [address] parasites identification Dr. Katt Ramsay MD Work Phone: Start: 07-01-2024 Ova&parasites direct smears concentration & id Dr. Katt Ramsay MD Work Phone: Start: 08-14-2023 Gluc bld gluc mntr dev cleared fda spec home use Eriberto Kimball MD Work Phone: Start: 08-14-2023 Colonoscopy flx dx w/collj spec when pfrmd Carmenmillicent Willis PA-C Start: 08-14-2023 Esophagogastroduodenoscopy transoral diagnostic Carmenmillicent Willis PA-C Start: 08-14-2023 Gluc bld gluc mntr dev cleared fda spec home use Eriberto Kimball MD Work Phone: Start: 07-16-[address] Katt Ramsay Work Phone: Start: 05-03-2023 CT of abdomen and pelvis without contrast Dr. Katt Ramsay Work Phone: Start: 07-05-2022 Radionuclide imaging of perfusion of myocardium under exercise stress Dr. Katt Ramsay Work Phone: Start: 02-07-2022 Plain chest X-ray Dr. Katt Ramsay Work Phone: Start: 02-07-2022 Radionuclide imaging of perfusion of myocardium under exercise stress Dr. Katt Ramsay Work Phone: Cataract (disorder) JALYN LEBRON MD Cholecystectomy JALYN Sanchez MD Stent, device (physical object) JALYN MCADAMS MD Comment on above: cardiac Plan of Treatment Date Care Activity Detail Author Start: 07-01-2024 Ova and Parasites Ova and Parasites [facility] Start: 07-01-2024 Elastase.pancreatic [Presence] in Stool [facility] Start: 07-01-2024 Ova OR parasites identification [facility] Start: 07-01-2024 Protein measurement [facility] Start: 06-29-2024 Urine microalbumin profile DTaP,Tdap,Td Vaccine (2 - Td or Tdap) [facility] Start: 12-16-2023 Influenza vaccination Influenz a Vaccine (Season Ended) [facility] Start: 08-14-2023 End: 08-14-2023 Patient encounter procedure 08/14/2023 12:15 PM EDT Appointment Ambulatory Surgery [address] [place] [address] Eriberto Kimball MD [address] [id number] colon/egd Ambulatory Surgery Comment on above: colon/egd Start: 05-04-2023 [facility] Start: 04-16-2023 Advance Directive Discussion Advance Directive Discussion [facility] Start: 04-16-2023 Behavioral Health Screening Behavioral Health Screening [facility] Start: 12-15-2022 Covid-19 Vaccine () Covid-19 Vaccine () [facility] Start: 02-08-2022 Patient referral [facility] Work Phone: Start: 02-08-2022 Patient discharge [facility] Start: 02-07-2022 [facility] Work Phone: Start: 02-07-2022 Cardiac monitoring [facility] Start: 02-07-2022 Cardiac rehabilitati on - phase 1 [facility] Start: 02-07-2022 Cardiac rehabilitati on - phase 2 [facility] Start: 02-07-2022 Notification of physician [facility] Start: 02-07-2022 Patient discharge [facility] Start: 02-07-2022 Systemic arterial pressure monitoring [facility] Start: 02-07-2022 Taking patient vital signs [facility] Start: 02-07-2022 Vascular disease ris k assessment [facility] Start: 02-07-2022 Vital signs measurements [facility] Start: 02-07-2022 [facility] Start: 02-07-2022 Oxygen therapy [facility] Start: 02-07-2022 Admission procedure [facility] Start: 02-07-2022 Provision of activit y privileges [facility] Start: 02-07-2022 Assessment of risk o f venous thromboembolism [facility] Start: 02-07-2022 Insertion of cathete r into peripheral vein [facility] Start: 02-07-2022 Measuring intake and output [facility] Start: 02-07-2022 Providing care accor ding to standard [facility] Start: 02-07-2022 End: 02-07-2022 Catheterization of vein [facility] Start: 02-07-2022 Medication not administered [facility] Start: 02-07-2022 Preoperative care [facility] Start: 02-07-2022 End: 02-07-2022 [facility] Start: 02-07-2022 Following clinical pathway protocol [facility] Start: 12-01-2016 Hepatitis B screening Urine Albumin:Creatinine Ratio [facility] Start: 12-01-2016 Hepatitis B surface antibody level LDL Cholesterol [facility] Start: 10-04-2016 Glaucoma screening Dilated Retinal E xam [facility] Start: 07-06-2016 Screening for osteoporosis Bone Density Screening [facility] Start: 06-03-2016 Hemoglobin A1c measurement HbA1C [facility] Start: 05-20-2016 Diabetic foot examination Diabetic F oot Exam [facility] Start: 2006 RSV Vaccine (1 - 1-d ose 60+ series) RSV Vaccine (1 - 1-dose 60+ series) [facility] Start: 1996 Shingrix Vaccine (1 of 2) Fox grix Vaccine (1 of 2) [facility] Start: 1964 Annual PCP Team Observation Nurse navjot Disease Visit Annual PCP Team Chronic Disease Visit [facility] Start: 1964 BP Controlled (<130/80) BP Con trolled (<130/80) [facility] Start: 1952 Pneumococcal Vaccine : 65+ (1 of 2 - PCV) Pneumococcal Vaccine: 65+ (1 of 2 - PCV) [facility] Patient Education ED Urinary Ret ention, Female [facility] Work Phone: Patient referral [facility] Work Phone: SURGICAL PATHOLOGY [facility] Work Phone: Comment on above: Release Upon Orderin g for 1 Occurrences starting 08/14/2023, 1 completed Immunizations Immunization Date Immunization Notes Care Provider Fa jace 06-29-2014 tetanus toxoid, redu jazmine diphtheria toxoid, and acellular pertussis vaccine, adsorbed Eriberto Kimball MD Work Phone: [facility] Payers Date Payer Category Payer Self-pay [id number] 2021 Medicare [employer] MEDICARE A ETNA MEDICARE PPO [id number] 2021-Present [phone] [address] [place] [address] PPO [id number] 2021 Private Health Insurance [facility] [place][note 2] [id number] 2016 Unknown [id number] 2011 Medicare [id number] 1945 Unknown [id number] 27 1945 Unknown [id number] 27 Unknown [id number] 2.16.840.1.217832.3.579.2.4 62 Unknown [id number] 2.16.840.1.380415.3.579.2.4 62 Unknown [id number] 2.16.840.1.404751.3.579.2.4 62 Unknown [id number] 2.16.840.1.824347.3.579.2.4 62 Unknown [id number] 2.16.840.1.355447.3.579.2.4 62 Unknown [id number] 2.16.840.1.277456.3.579.2.4 62 Unknown [id number] 2.16.840.1.687756.3.579.2.4 62 Unknown [id number] 2.16.840.1.065760.3.579.2.4 62 Unknown [id number] 2.16.840.1.329014.3.579.2.4 62 Unknown [id number] 2.16.840.1.278855.3.579.2.4 62 Unknown [id number] 2.16.840.1.296372.3.579.2.4 62 Unknown [id number] 2.16.840.1.425494.3.579.2.4 62 Unknown [id number] 2.16.840.1.341277.3.579.2.4 62 Unknown [id number] [id number] 62 Unknown [id number] 62 Social History Date Type Detail Facility Start: 03-08-2021 End: 07-16-2023 Tobacco smoking status NHIS Unknown if ever smoked [facility] Start: 03-31-2019 None [facility] Start: 03-31-2019 Spouse/ Signif icant Other [facility] Start: 03-31-2019 Non-smoker [facility] Start: 1945 Sex Assigned At Female [facility] Start: 03-09-2023 End: 07-16-2023 Tobacco smoking status Ex-smoker (finding) [facility] End: 09-14-1991 History of tobacco use Current smoker [facility] End: 09-14-1991 History of tobacco use Cigarette Smoker [facility] Start: 04-25-2023 End: 08-14-2023 Cigarettes smoked current (pack per day) - Reported 2 [facility] Start: 04-25-2023 Tobacco use and exposure Smokeless tobacco non-user [facility] Start: 05-14-2023 End: 08-14-2023 Alcohol intake Current non-drinker of alcohol (finding) [facility] Start: 04-25-2023 End: 05-14-2023 Tobacco use panel [facility] National Score (1-10 0), lower number is lower risk 89 [facility] Start: 04-25-2023 Tobacco Comment Quit 1991 [facility] Start: 1945 Sex Assigned At Not on file C [facility] Start: 07-02-2024 End: 07-24-2024 Sex Female (finding) [facility] Medical Equipment Procedure Code Equipment Code Equipment Origin al Text Equipment Identifier Dates ([id number]) Drug-eluting cor onary artery stent, bioabsorbable-polymer -coated ()[id number] FDA Start: 02-07-2022 Implantable vasc ular closure clip ()[id number] FDA Start: 02-07-2022 Goals Date Patient Goal Desired Activity /State Functional Status Date Assessment Result Facility 04-25-2023 Functional Status Independent [facility] 04-25-2023 Functional Status Standard Safet y ID band on, Allergy Band on, Call device within reach, Bed in low position, Wheels locked, Upper/Half-Length side-rails up, Phone within reach, personal items within reach [facility] 03-09-2023 Functional Status Up ad harris [facility] 02-08-2022 Functional status Ambulates [facility] Work Phone: Mental Status Date Assessment Result Facility 04-25-2023 Mental Status Orientation Oriented x 4 [facility] 04-25-2023 Mental Status [facility] 03-09-2023 Mental Status Orientation Oriented x 4 [facility] 02-08-2022 Cognitive function Voice/Name [facility] Work Phone: Clinical Notes 01-14-2022 to 02-12-2025 Note Date & Type Note Facility 02-12-2025 Note [facility] Medical Records Department [address] [place] [address] Discharge Summary 02/12/25906 MR#: [id number] Acct: [id number] Name: VALERIANO CROSS HUGO Rep #: [id number] : 1945 79 From: Alex Adhikari MD PCP: Care Physician,No Primary Status:ADM IN Location: [place] [address] Providers Date of Admission: 02/10/25 Date of Discharge: 02/12/25 Primary Care Physician: No Primary Care Phys Reason For Visit: INTRACTABLE NAUSEA/VOMITING Diagnosis Discharge Diagnosis (1) Nausea vomiting: Status: Acute Code(s): R11.2 - Nausea with vomiting, unspecified (2) Chest pain: Status: Acute Code(s): R07.9 - Chest pain, unspecified (3) Diverticulitis: Status: Acute Code(s): K57.92 - Diverticulitis of intestine, part unspecified, without perforation or abscess without bleeding Plan Patient is a 79-year-old lady who presented with intractable nausea vomiting imaging studies obtained demonstrated mild uncomplicated sigmoid diverticulitis. Admitted to regular nursing floor for further management 1. Sigmoid diverticulitis ??? Admitted to regular nursing floor. Started on Zosyn in addition to symptom management ??? 02/11/2025; patient still remains symptomatic with pain nausea and vomiting as well as elevated WBC count. Will continue current treatment with Zosyn repeat CBC with differential in a.m. ??? 02/12/2025; patient BC count trend plan for patient to be assessed for possible discharge 2. Right hip pain ??? Secondary to osteoarthritis Imaging studies demonstrated degenerative changes involving both hips 3. Diabetes mellitus type 2 uncontrolled with hyperglycemia ??? Patient is on glipizide held on admission started on long-acting insulin in addition to Accu-Cheks AC and at bedtime with sliding scale coverage 4. Essential hypertension ??? Patient blood pressure controlled optima is on lisinopril did continue added Lopressor 25 mg twice daily 5. Coronary artery disease ??? With previous CLEMENT to mid LAD and proximal RCA lesion and PCI to left circumflex. Patient has apparently been off her medications for a month. Was educated on the need to be compliant 6. Dyslipidemia ??? Patient is supposed to be on statin apparently came off for almost a month ordered lipid panel 7. GERD ??? PPI as 8. Chronic kidney disease stage IIIa ??? Kidney function at base 9. Anemia ??? Secondary to chronic disorder monitoring H H and transfuse if patient becomes symptomatic or hemoglobin falls below 7 10. DVT prophylaxis ??? Subcu enoxaparin Time spent in the patient's overall evaluation,decision-making process, review of diagnostic data, adjustment of management, discussion with other providers, nursing nursing and ancillary staff involved in patient's care documentation, 35 Minutes Medications at Discharge Home Medications aspirin 81 mg tablet,delayed release 81 mg PO DAILY@0800 pain 11/04/20 cholecalciferol (vitamin D3) 50 mcg (2,000 unit) capsule 50 mcg PO DAILY vitamin 12/09/20 vit [id number] 500 mg-50 mg-25 mg-40 mg tablet (Bioflex) 2 tab PO DAILY 06/28/22 vitamin E mixed 400 unit tablet 400 unit PO DAILY 06/28/22 finerenone 20 mg tablet (Kerendia) 20 mg PO QDAY 09/30/24 glipizide 5 mg tablet, extended release 24 hr 5 mg PO BID 09/30/24 nitroglycerin 0.4 mg sublingual tablet 0.4 mg sublingual Q5M PRN Chest Pain #25 tabs 09/30/24 amoxicillin 875 mg-potassium clavulanate 125 mg tablet 1 tab PO BID 7 days #14 tabs 02/10/25 metoclopramide HCl 5 mg tablet (Reglan) 5 mg PO Q8H PRN nausea and vomiting #14 tabs 02/10/25 Physical Exam Narrative GENERAL: Patient appears ill looking HEENT: Atraumatic; normocephalic EYES; Anicteric, Normal Conjunctiva NECK; supple, normal thyroid, RESPIRATORY: Diminished to auscultation CARDIOVASCULAR: Regular S1 S2, GI: soft, normoactive bowel sounds, : No Renal angle tenderness; EXTREMITIES: No edema, no clubbing, MUSCULOSKELETAL: no muscle wasting NEURO: Awake; no lateralizing signs. SKIN: No Rash PSYCH; Flat affect Weight / BMI Weight Weight: 55.1 kg Body Mass Index (BMI) 24.5 ABG / Lab / Microbiology Data 02/12/25 07:02 02/12/25 07:02 Laboratory: Laboratory Results - last 24 hr 02/11/25 10:48: POC Glucose 99 02/11/25 16:09: POC Glucose 95 02/11/25 21:40: POC Glucose 83 02/12/25 07:02: WBC 13.7 H, RBC 3.31 L, Hgb 10.1 L, Hct 30.4 L, MCV 91.8, MCH 30.5, MCHC 33.2, RDW Std Deviation 42.9, RDW Coeff of Titus 12.9, Plt Count 227, MPV 11.0, Immature Gran % (Auto) 0.900, N eut % (Auto) 80.3 H, Lymph % (Auto) 7.7 L, [place] % (Auto) 10.3 H, Eos % (Auto) 0.3, Baso % (Auto) 0.5, Absolute Neuts (auto) 11.0 H, Absolute Lymphs (auto) 1.06, Nucleated RBC % 0, Sodium 137, Potassium 3.3, Chloride 108, Carbon Dioxide 20.9 L, Anion Gap 8, BUN 30 H, Creatinine 1.46 H, Estim Creat (more content not included)... [facility] 02-10-2025 Note [facility] Medical Records Department [address] [place] [address] History Physical Exam 02/10/25 0110 MR#: [id number] Acct: [id number] Name: VALERIANO CROSS Rep #: [id number] : 1945 79 From: Rai Mendoza MD PCP: Care Physician,No Primary Status:REG ER Location: ED HPI - General General Date of Admission: 02/10/25 Date of Service: 02/10/25 Chief Complaint: Hip pain, chest pain, intractable nausea vomiting HPI Narrative VALERIANO CROSS, is a 79 F who presents to the emergency room with chief complaint of hip pain. Patient has a significant past medical history of cyclic vomiting as well. During her visit in the emergency room she also complained of chest pain as well. In the emergency room x-ray of the hip was done and was negative and chest x-ray was negative as well. She was diagnosed with a mild case of diverticulitis based on her chest abdomen pelvis CT angiogram study and was set to be discharged home when she continued to have active nausea and vomiting despite receiving ondansetron, Reglan and Ativan. Admission was requested due to patient's intractable nausea and vomiting. Laboratory studies reveal white blood cell count 11.7, hemoglobin 13, hematocrit 36.4 platelets 317, sodium 138, potassium 4.7, chloride 99, bicarb 24.2, BUN 40, creatinine 1.58, glucose 337, troponin 22, 18. Patient is full code based on discussion with her daughter who is power of admitted attorneys. She will be admitted overnight for observation for IV fluids and continued management of her nausea and vomiting. [facility] Medical History Abdominal discomfort Acute bronchitis, unspecified Hiatal hernia Diverticulosis PAD (peripheral artery disease) Heart disease Kidney disease Arthritis Presence of stent in coronary artery ( 02/07/22) Old myocardial infarction Atherosclerotic heart disease of [place] coronary artery without angina pectoris NSTEMI (non-ST elevated myocardial infarction) (12/03/13) Essential hypertension Gastroparesis Syncope Diastolic dysfunction Pancreatic atrophy GERD (gastroesophageal reflux disease) Diabetes mellitus type II, uncontrolled COPD (chronic obstructive pulmonary disease) HLD (hyperlipidemia) Home Medications ???Medication ???Instructions ???Recorded ???Last Taken ???Type lisinopril 20 mg tablet 20 mg PO DAILY bp 02/10/15 3 History aspirin 81 mg tablet,delayed 81 mg PO DAILY@0800 pain 02/18/20 07/13/22 History release cholecalciferol (vitamin D3) 50 50 mcg PO DAILY vitamin 12/09/20 U nknown History mcg (2,000 unit) capsule vit 2 tab PO DAILY 06/28/22 Unknown Hi story [id number] 500 mg-50 mg-25 mg-40 mg tablet (Bioflex) vitamin E mixed 400 unit tablet 400 unit PO DAILY 06/28/22 Unknown History finerenone 20 mg tablet (Kerendia) 20 mg PO QDAY 09/30/24 Unknown H istory glipizide 5 mg tablet, extended 5 mg PO BID 09/30/24 Unknown Histo ry release 24 hr metformin 500 mg tablet,extended 500 mg PO Q3-4D 09/30/24 Unknown H istory release 24 hr nitroglycerin 0.4 mg sublingual 0.4 mg sublingual Q5M PRN Chest Unknown Rx tablet Pain #25 tabs amoxicillin 875 mg-potassium 1 tab PO BID 7 days #14 tabs 02/10 Unknown Rx clavulanate 125 mg tablet metoclopramide HCl 5 mg tablet 5 mg PO Q8H PRN nausea and 5 Unknown Rx (Reglan) vomiting #14 tabs Allergy/AdvReac Type Severity Reaction Status Date / Time benzonatate (From Tessalon Allergy lip, Verified 02/09/25 17:59 Perles) tongue swelling omeprazole (From Prilosec) AdvReac Other Verified 02/09/25 17:59 omeprazole magnesium (From AdvReac Other Verified 02/09/25 17:59 Prilosec) Family History Father Myocardial infarction Sister CAD (coronary artery disease) CABG X 5 Brother CAD (coronary artery disease) Sister Sudden cardiac , Onset Age: 49 Surgical History S/P PTCA (percutaneous transluminal coronary angioplasty) Presence of coronary angioplasty implant and graft (02/07/22) History of tonsillectomy History of cataract extraction History of section History of cholecystectomy ( 2013) Social History Smoking Status: Former smoker how long ago did patient quit smokin years ago alcohol intake: never substance use type: does not use caffeine: No ROS Constitutional Constitutional: Denies chills or fever(s) Eyes Eyes: Denies blurry vision ENT HEENT: Denies abnormal hearing Cardiovascular Cardiovascular: Reports chest pain Respiratory/Chest Respiratory/Chest: Denies shortness of breath at rest Gastrointestinal Dong (more content not included)... [facility] 09-30-2024 Evaluation note Diagnosis Onset Date Resolution Atherosclerotic heart disease of [place] coronary artery without angina pectoris chronic September 30, 2024 1:52pm Essential hypertension chronic 2024 1:52pm HLD (hyperlipidemia) chronic September 30, 2024 1:52pm PAD (peripheral artery disease) chronic September 30, 2024 1:52pm [facility] Work Phone: 1(697) 963-474605-14-2025 Radiology Diagnostic study note [facility] Services [address] [place], [place] [address] Kidney and Bladder MR#: [id number] Acct: [id number] Name: VALERIANO CROSS Rep #: [id number] : 1945 F 78 From: Radhames Car MD PCP: Dr. Katt Ramsay MD Status: REG CLI Study:Kidney and Bladder Date of Exam: 0 08/26/24 Exam# [id number] Ordering Dr: Christel Moncada MD PROCEDURE: KIDNEY AND BLADDER 08/26/2024 REASON FOR EXAM: UTI TECHNIQUE: Ultrasound imaging of kidneys and bladder. FINDINGS: The right kidney measures 9.9 x 5 x 4.9 cm with a cortical thickness of 1.3 cm. The left kidney measures 10.6 x 4.3 x 4.8 cm with a cortical thickness of 1.6 cm. The kidneys appear within limits for echogenicity without hydronephrosis, renal stone or perinephric edema seen. Suggestion of an extrarenal pelvis noted on the right, incidental. Medial inferior left renal cyst measuring 1.4 x 1.2 x 1.2 cm. Bladder volume 215 cc. Bladder appears within limits. Wall measures 2 mm. Thedistal ureters are notvisualized. Bilateral ureteral jets are noted during imaging. Postvoid bladder volume 22 cc. US/Kidney and Bladder IMPRESSION: Study appears within limits as above. Reading Location: [id number] CC: Dr. Katt Ramsay MD; Dr. Christel Moncada MD ~ Nitrating Acid Mixer: Signed [facility]03-04-2025 Evaluation note* Diagnosis Onset Date Resolution Status Admit Date Abnormal stools acute June 12:54pm Abdominal pain inactive June 17, 2024 12:54pm Abdominal symptoms noneactive June 17, 2024 12:54pm Abdominal discomfort acute Miguel h 2024 12:20pm Acute bronchitis, unspecified acute June 24, 2024 12:20pm [facility] Work Phone: 1(316) 540-865303-04-2025 Evaluation note* Diagnosis Onset Date Resolution Status Admit Date Abnormal stools acute June 12:54pm Abdominal pain inactive June 17, 2024 12:54pm Abdominal symptoms noneactive June 17, 2024 12:54pm Abdominal discomfort acute Miguel h 2024 12:20pm Acute bronchitis, unspecified acute June 24, 2024 12:20pm Abdominal discomfort acute Apri l 2024 10:46am [facility] Work Phone: 1([phone]) 699-724203-04-2025 Evaluation note* Diagnosis Onset Date Resolution Status Admit Date Abnormal stools acute June 12:54pm Abdominal pain inactive June 17, 2024 12:54pm Abdominal symptoms noneactive June 17, 2024 12:54pm Abdominal discomfort acute Miguel h 2024 12:20pm Acute bronchitis, unspecified acute June 24, 2024 12:20pm Abdominal discomfort acute Apri l 2024 10:46am 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 September 1:52pm Essential hypertension chronic Ju ne 2024 1:52pm HLD (hyperlipidemia) chronic September 30, 2024 1:52pm PAD (peripheral artery disease) 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 The patient was seen by Carmen Willis who noted: The patient is a 77 year old female referred for endoscopy. Valeriano notes multiple complaints at today's visit. Primary complaint is diffuse abdominal pain x several weeks, worse in the left upper quadrant of the abdomen. Describes as constant, burning in character, occasionally with radiation intoher back and occasionally with radiation into the [...] of months. Describes stools as more mucousy thanusual. Denies blood or black stools. Occasionally will note some bandlike lower abdominal discomfort even with sitting at rest. Denies recent travel or diet or medication changes. was seen at ER within the last two months, brings hand-carried records, was told had hiatal hernia and UTI. had trouble with antibiotics given for UTI and was not sure if this ever resolved. Has not had follow up with PCP to recheck urine. Patient also notes within the last few days has developed "sores" in vaginal area and some back toward rectum. 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 Valeriano has undergone prior [...] Denies problems with sedation in the past. I performed upper and lower endoscopy on August 14, 2023. The patient was found to have: Upper Endoscopy Impression: - Normal examined jejunum. Biopsied. - Normal examined duodenum. - Normal stomach. Biopsied. - Mildly severe reflux esophagitis with no bleeding. Biopsied. - Normal middle third of esophagus. Biopsied. Lower Endoscopy Impression: - The examined portion of the ileum was normal. Biopsied. - One diminutive polyp in the cecum, removed with a cold biopsy forceps. Resected and retrieved. - The entire examined colon is normal. Biopsied. - Diverticulosis in the sigmoid colon. - The examination was otherwise normal on direct and retroflexion views. Pathology demonstrated: FINAL DIAGNOSIS A. Jejunum, biopsy: -Small intestinal mucosa with no diagnostic alteration B. Antrum, biopsy: -Antral mucosa with no diagnostic alteration -No morphologic evidence of Helicobacter pylori C. Distal esophagus, biopsy: -Squamo-gastric junctional mucosa with reactive epithelial changes -Negative for intestinal metaplasia D. Mid esophagus, biopsy: -Squamous mucosa with no diagnostic alteration -No prominence of intraepithelial eosinophils E. Small bowel, terminal ileum, biopsy: -Small intestinal mucosa with no diagnostic alteration F. Ascending colon, biopsy: -Colonic mucosa with no diagnostic alteration -No evidence of microscopic colitis G. Descending colon, polypectomy: -Colonic mucosa with lymphoid aggregate ( deeper levels examined) H. Cecum, polypectomy: -Tubular adenoma IMPRESSION: Gastritis, distal esophagitis, adenomatous polyp PLAN: INSTRUCTIONS FOLLOWING A POLYP FOUND AT COLONOSCOPY You were found to have an adenomatous colon polyp. I recommend you undergo repeat endoscopy in 5 years. If you note bleeding, change in bowel habits, or other suspicious colon related symptoms beforethat time, those symptoms should be evaluated as necessary. If you have any difficulties or concerns, you should contact our office immediately. INSTRUCTIONS FOR PEPTIC ULCER DISEASE/GASTRITIS I discussed with you the findings of your upper endoscopy. Your upper endoscopy demonstrated signs of peptic ulcer disease or irritation. This can be seen as a range of issues from actual ulcers in the stomach or duodenum (first part of the small bowel) or irritation ranging from redness to more significant irritation with erosions of the stomach or duodenum. These conditions are usually caused from a combination of too much acid production or too little protective mucus production in the stomach. Factors that increase acid production include smoking and stress. If you smoke, stopping smoking will often cure these issues without needing other medications. Factors that decrease the stomach's production of protective mucus include alcohol consumption, smoking, aspirin and other anti-inflammatory use. Over the counter medications including antiacids and acid reducing medications including H2 blockers (Zantac and the like) and proton pump inhibitors (prilosec, prevacid and the like) neutralize or prevent acid production. Prescription strength proton pump inhibitors (PPIs) may be necessary if your symptoms persist. Carafate may be added to PPI treatment in refractory cases. Avoiding smoking, alcohol and antiinflammatory medications are important in the successful treatment of peptic diseases. New or worsening symptoms such are epigastric pain, burning, difficulty swallowing or food stickingshould be relayed to your physician. Feeling full early after eating, or black, tarry, foul smelling stools are also worrisome. If you have any difficulties or concerns, you should contact our office immediately. The patient is instructed to follow-up with your primary care provider I have instructed my staff to forward the above information to the patient and to the appropriate providers [facility] Work Phone: [phone]) [phone] Miscellaneous Notes* Telephone Encounter - Eriberto Kimball MD - 08/21/2023 8:50 PM EDT FOLLOW UP ENDOSCOPY - RESULTS AND RECOMMENDATIONS NAME: Valeriano Sanchez Tay [facility] NO.: [id number] : 1945 DATE: August 21, 2023 PRIMARY CARE PROVIDER: Katt Ramsay MD Valerinao Cross is a patient referred for endoscopy for a change in bowel habits. The patient was seen by Carmen Willis who noted: The patient is a 77 year old female referred for endoscopy. Valeriano notes multiple complaints at today's visit. Primary complaint is diffuse abdominal pain x several weeks, worse in the left upper quadrant of the abdomen. Describes as constant, burning in character, occasionally with radiation intoher back and occasionally with radiation into the [...] of months. Describes stools as more mucousy thanusual. Denies blood or black stools. Occasionally will [...] within the last few days has developed "sores" in vaginal area and some back toward rectum. 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 Valeriano has undergone prior [...] Denies problems with sedation in the past. I performed upper and lower endoscopy on August 14, 2023. The patient was found to have: Upper Endoscopy Impression: - Normal examined jejunum. Biopsied. - Normal examined duodenum. - Normal stomach. Biopsied. - Mildly severe reflux esophagitis with no bleeding. Biopsied. - Normal middle third of esophagus. Biopsied. Lower Endoscopy Impression: - The examined portion of the ileum was normal. Biopsied. - One diminutive polyp in the cecum, removed with a cold biopsy forceps. Resected and retrieved. - The entire examined colon is normal. Biopsied. - Diverticulosis in the sigmoid colon. - The examination was otherwise normal on direct and retroflexion views. Pathology demonstrated: FINAL DIAGNOSIS A. Jejunum, biopsy: -Small intestinal mucosa with no diagnostic alteration B. Antrum, biopsy: -Antral mucosa with no diagnostic alteration -No morphologic evidence of Helicobacter pylori C. Distal esophagus, biopsy: -Squamo-gastric junctional mucosa with reactive epithelial changes -Negative for intestinal metaplasia D. Mid esophagus, biopsy: -Squamous mucosa with no diagnostic alteration -No prominence of intraepithelial eosinophils E. Small bowel, terminal ileum, biopsy: -Small intestinal mucosa with no diagnostic alteration F. Ascending colon, biopsy: -Colonic mucosa with no diagnostic alteration -No evidence of microscopic colitis G. Descending colon, polypectomy: -Colonic mucosa with lymphoid aggregate ( deeper levels examined) H. Cecum, polypectomy: -Tubular adenoma IMPRESSION: Gastritis, distal esophagitis, adenomatous polyp PLAN: INSTRUCTIONS FOLLOWING A POLYP FOUND AT COLONOSCOPY You were found to have an adenomatous colon polyp. I recommend you undergo repeat endoscopy in 5 years. If you note bleeding, change in bowel habits, or other suspicious colon related symptoms beforethat time, those symptoms should be evaluated as necessary. If you have any difficulties or concerns, you should contact our office immediately. INSTRUCTIONS FOR PEPTIC ULCER DISEASE/GASTRITIS I discussed with you the findings of your upper endoscopy. Your upper endoscopy demonstrated signs of peptic ulcer disease or irritation. This can be seen as a range of issues from actual ulcers in the stomach or duodenum (first part of the small bowel) or irritation ranging from redness to more significant irritation with erosions of the stomach or duodenum. These conditions are usually caused from a combination of too much acid production or too little protective mucus production in the stomach. Factors that increase acid production include smoking and stress. If you smoke, stopping smoking will often cure these issues without needing other medications. Factors that decrease the stomach's production of protective mucus include alcohol consumption, smoking, aspirin and other anti-inflammatory use. Over the counter medications including antiacids and acid reducing medications including H2 blockers (Zantac and the like) and proton pump inhibitors (prilosec, prevacid and the like) neutralize or prevent acid production. Prescription strength proton pump inhibitors (PPIs) may be necessary if your symptoms persist. Carafate may be added to PPI treatment in refractory cases. Avoiding smoking, alcohol and antiinflammatory medications are important in the successful treatment of peptic diseases. New or worsening symptoms such are epigastric pain, burning, difficulty swallowing or food stickingshould be relayed to your physician. Feeling full early after eating, or black, tarry, foul smelling stools are also worrisome. If you have any difficulties or concerns, you should contact our office immediately. The patient is instructed to follow-up with your primary care provider I have instructed my staff to forward the above information to the patient and to the appropriate providers [facility]* Discharge Instr - Nursing - Rosa Boggs RN - 08/14/2023 12:47 PM EDT The patient received a copy of Colonoscopy and EGD discharge instructions that contain information for how to contact the physician who performed the procedure and when to seek medical care. [facility]04-30-2024 Miscellaneous Notes* Discharge Instr - Nursing - Rosa Boggs RN - 08/14/2023 12:47 PM EDT The patient received a copy of Colonoscopy and EGD discharge instructions that contain information for how to contact the physician who performed the procedure and when to seek medical care. documented in this encounterCos[facility] Nurse Note* Rosa Boggs RN - 08/14/2023 12:29 PM EDT Pt. arrived to phase 2 resting on left side. SR up x 2, call light in reach. Denies pain. ROBIN Orozco [facility]04-30-2024 Nurse Note* Rosa Boggs RN - 08/14/2023 12:29 PM EDT Pt. arrived to phase 2 resting on left side. SR up x 2, call light in reach. Denies pain. ROBIN Orozco documented in this encounterCoshocton [facility]04-30-2024 Attending History and physical note* Eriberto Kimball MD - 08/14/2023 11:15 AM EDT UPDATED PROCEDURAL SEDATION HISTORY AND PHYSICAL EXAMINATION SERVICE DATE: 08/14/2023 SERVICE TIME: 11:21 AM PHYSICAL EXAM MUST BE COMPLETED ON ADMISSION PROCEDURE: Procedure Indications: The History and Physical (completed in the past 30 days) has been reviewed and the patient has beenexamined. The contents accurately reflect the patient's condition with the following additions or revisions since the H&P was completed. ASA Class: ASA Class:: Patient with severe systemic disease Examination indicates no changes. AIRWAY: Airway Visualization of Uvula: Yes Mouth opening greater than 2 fingerbreadths: Yes Neck Full Range of Motion: Yes LUNGS: Lungs clear to auscultation CARDIAC: Regular rhythm,Regular rate Provisional Diagnosis/Treatment Plan: bloating, abdominal complaints, change in bowel habits - EGD and Colonoscopy SEDATION GOAL: Moderate This H&P can be found in the attached. SIGNATURE: Eriberto Kimball MD PATIENT NAME: Valeriano Cross DATE: August 14, 2023 TIME: 11:21 AM Source Note - Eriberto Kimball MD - 08/14/2023 11:15 AM EDT Images from the original note were not included. HISTORY AND PHYSICAL Valeriano Cross 1945 REFERRING PHYSICIAN: No ref. provider found CHIEF COMPLAINT: Consult (EGD follow up 05/17/20) HPI: The patient is a 77 year old female referred for endoscopy. Valeriano notes multiple complaints at today's visit. Primary complaint is diffuse abdominal pain x several weeks, worse in the left upper quadrant of the abdomen. Describes as constant, burning in character, occasionally with radiationinto her back and occasionally with radiation into the right side. Has had some nausea and states occasionally pain will make her feel like she is going to pass out. Denies fever or chills currently,but notes had a couple of days in the last week where she did feel feverish. Patient notes a change in bowels x the last couple of months. Describes stools as more mucousy thanusual. Denies blood or black stools. Occasionally will note some bandlike lower abdominal discomfort even with sitting at rest. Denies recent travel or diet or medication changes. States was seen at ER within the last two months, brings hand-carried records, was told had hiatal hernia and UTI. had trouble with antibiotics given for UTI and was not sure if this ever resolved. Has not had follow up with PCP to recheck urine. Patient also notes within the last few days has developed "sores" in vaginal area and some back toward rectum. 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 Valeriano has undergone prior [...] sedation in the past. PAST MEDICAL HISTORY PAST MEDICAL HISTORY Diagnosis Date Abdominal pain [...] 06/29/2014 Vitamin D deficiency PAST SURGICAL HISTORY PAST SURGICAL HISTORY Procedure Laterality Date ABDOMINAL SURGERY HX CATARACT SURGERY, COMPLEX right CHG DELIVERY 1970 COLONOSCOPY 12/27/2013 COLONOSCOPY SCRN NOT HIGH RISK 05/06/2020 EGD 05/06/2020 EGD INTRALUMINAL TUBE/CATHETER INSERTION 01/06/2014 [facility] EGD TRANSORAL BIOPSY SINGLE/MULTIPLE 12/12/2013 mild gastritis EYE SURGERY HX LAPAROSCOPY SURG CHOLECYSTECTOMY 11/17/2013 LEFT HEART CATH,PERCUTANEOUS 12/04/2013 Cardiac cath, L heart TONSILLECTOMY HX CURRENT MEDICATIONS Current Outpatient Medications Medication Sig finerenone (KERENDIA) [...] Dissolve 1 tablet under the tongue as neededfor Chest Pain. aspirin, enteric coated 81 mg [...] tablets by mouth twice daily. (Patient not taking:Reported on 05/17/2020 ) benzonatate (TESSALON PERLES) 100 [...] (Patient not taking: Reported on 07/10/2018 ) smuqam-mvqkdbpj-vdudptq (ZENPEP) 5,000-17,000 -27,000 unit cpDR 1 capsule by mouth 5 times/day (Patient not taking: Reported on 07/10/2018 ) pantoprazole DR (PROTONIX) 40 mg tablet Take 1 tablet by mouth once daily. (Patient not taking: Reported on 07/10/2018 ) magnesium oxide (MAG-OX) 400 mg tablet Take 1 tablet by mouth once daily. Chromium Picolinate 200 mcg cap Take by mouth. vit J-qrcssze-ynno-rutin-hb196 (BIOFLEX) 748-27-43-40 mg tab Take by mouth. ascorbic acid (VITAMIN C) 500 mg tablet Take 1 tablet by mouth once daily. Pt takes 2000 mg daily Cinnamon Bark 500 mg cap Take by mouth. Ginkgo Biloba (GINKGO) 60 mg tab Take by mouth. metoclopramide HCl (REGLAN) 5 mg tablet Take 1 tablet by mouth four times daily. (Patient not taking: Reported on 07/10/2018 ) No current facility-administered medications for this visit. ALLERGIES: Baclofen, Prilosec [Omeprazole Magnesium], and Tessalon [Benzonatate] PERSONAL HISTORY: SOCIAL HISTORY Social History Tobacco Use Smoking status: Former Packs/day: 2.00 Years: 25.00 Additional pack years: 0.00 Total pack years: 50.00 Types: Cigarettes Quit date: 09/14/1991 Years since quittin.6 Smokeless tobacco: Never Tobacco comments: Quit 1991 Vaping Use Vaping Use: Never used Substance Use Topics Alcohol use: No Drug use: No FAMILY HISTORY: FAMILY HISTORY FAMILY HISTORY Problem Relation Age of Onset Diabetes Sister Heart Father Heart Sister Heart Brother REVIEW OF SYMPTOMS: The review of systems data was entered by the nurse and reviewed by nm Nursing Notes: Jahaira Crews LPN 04/25/2023 11:05 AM Signed REVIEW OF SYSTEMS: General: The patient denies fatigue, denies weight loss, denies weight gain, denies feeling hot, and denies feelings of cold. Eyes: The patient denies glaucoma, denies eye injury/surgery, wears glasses or contacts. Ear/Nose/Throat: The patient NOTES allergies, denies hayfever, denies ear infections, and denies bloody noses. Cardiovascular: The patient NOTES chest pain, denies heart disease, NOTES high blood pressure,NOTEScardiac stent, denies prior heart attack, NOTES irregular heart beat, NOTES high cholesterol, denies poor circulation, denies heart failure, other cardiac issues, denies claudication, denies cold feet, denies peripheral arterial stent. Respiratory: The patient denies tuberculosis, denies pneumonia, denies frequent cough, denies pulmonary embolism, denies shortness of breath, and denies coughing up blood. Gastrointestinal: The patient NOTES difficulty swallowing, NOTES acid reflux, denies ulcers, deniesvomiting, denies jaundice/hepatitis, denies gallbladder problems, denies black or tarry stools, denies hemorrhoids, denies bleeding from rectum, denies diverticulitis, NOTES constipation, NOTES diarrhea, denies loss of stool control, and denies hernias. Kidney/Bladder: The patient denies kidney stones, denies urine infections, and denies bloody urine. Skin: The patient denies a history of skin cancer, denies bleeding/changing moles, and denies a history of skin rash. Neurologic: The patient denies a history of epilepsy/convulsions, denies headaches, denies head/spinal injuries, and denies stroke/TIA. Psychiatric: The patient denies psychiatric medications, denies depression, and denies voices, denies substance abuse. Endocrine: The patient denies thyroid disorders, NOTES diabetes, and denies hormonal problems. Hematologic: The patient denies a history of bruising, denies bleeding, and denies anemia, denies blood clots. Infections: The patient denies a history of measles and mumps, denies rheumatic fever, and denies sexually transmitted diseases. Musculoskeletal: The patient NOTES back pain/injury, NOTES back problems, NOTES sciatica, NOTES knee/foot trouble, NOTES arthritis, or denies gout. When was patient's last Mammogram screening? N/A Last Colonoscopy: 2020 Jahaira Crews LPN I have confirmed and edited as necessary, the PFSH and ROS obtained by others. PHYSICAL EXAMINATION: General: The patient is 77 year old female, well nourished, well hydrated in no acute distress. Thepatient is oriented to time, place, and person. VITALS: Blood pressure 118/80, pulse 87, temperature 36.2 C (97.2 F), height 147.3 cm (4' 10"), weight 58.3 kg (128 lb 9.6 oz), SpO2 98%. Body mass index is 26.88 kg/m . HEENT: Normal cephalic, ataumatic, pupils are equally round, sclera are anicteric, mucous membranesare moist, oropharynx is clear. Neck has no masses, asymmetry or lymphadenopathy. Respiratory: Clear to auscultation and percussion. Normal respiratory excursion and pattern. Cardiac: Examination is regular rate and rhythm. Normal S1/S2 Abdominal exam: +diffuse generalized TTP without rebound or guarding. +tenderness over left flank and back. No hepatosplenomegaly. No palpable hernias. Extremities: no clubbing, cyanosis or edema. No adenopathy. LABORATORY VALUES: As Noted RADIOLOGIC STUDIES: As Noted Assessment IMPRESSION: diffuse generalized abdominal discomfort. Change in stool. History of UTI without symptom resolution following treatment, has not had recheck or referral to specialist PLAN: I have reviewed my findings with the surgeon. Will plan for upper and lower endoscopy, once patient's UTI symptoms have been fully evaluated. We discussed the risks and benefits of the planned endoscopy. I have informed the patient that complications can occur including failure to complete the endoscopy and perforation. The patient had the opportunity to ask questions concerning the plannedendoscopy. My staff has also explained the procedure to the patient in understandable terms and hasgiven the patient printed material concerning the procedure. The patient freely consents to surgery. I plan to use Golytely bowel preparation Follow up with PCP and urology for complaints of Sx from UTI not feeling completely resolved per patient since treatment, and left flank pain. Patient requested to have UA completed here while stopping at lab for stool tests. Labs ordered, however emphasized need to follow up with appropriate provider for this. 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 Kimball after endoscopy to review results and recommendations Patient verbalized understanding of all above and agreed with the plan. Diagnoses: (R19.4) Change in bowel habits (primary encounter diagnosis) (R19.5) Mucus in stool (R10.84) Generalized abdominal pain (Z87.440) History of UTI Consultation requested by Dr. Ramsay for an opinion regarding abdominal discomfort and need for colonoscopy. My final recommendations will be communicated back to the requesting physician by way of shared Medical record or letter to requesting physician via US mail. I spent a total of 60 minutes on the date of the service which included preparing to see the patient, [id number] patient care, completing clinical documentation, obtaining and/or reviewing separately obtained history, performing a medically appropriate examination, counseling and educating the pat ient/family/caregiver, ordering medications, tests, or procedures, communicating with other HCPs (not separately reported), and care coordination (not separately reported). Carmen Willis PA-C [facility] Work Phone: [phone] History and physical note* Eriberto Kimball MD - 08/14/2023 11:15 AM EDT Images from the original note were not included. HISTORY AND PHYSICAL Valeriano Daniel Cross 1945 REFERRING PHYSICIAN: No ref. provider found CHIEF COMPLAINT: Consult (EGD follow up 05/17/20) HPI: The patient is a 77 year old female referred for endoscopy. Valeriano notes multiple complaints at today's visit. Primary complaint is diffuse abdominal pain x several weeks, worse in the left upper quadrant of the abdomen. Describes as constant, burning in character, occasionally with radiationinto her back and occasionally with radiation into the right side. Has had some nausea and states occasionally pain will make her feel like she is going to pass out. Denies fever or chills currently,but notes had a couple of days in the last week where she did feel feverish. Patient notes a change in bowels x the last couple of months. Describes stools as more mucousy thanusual. Denies blood or black stools. Occasionally will note some bandlike lower abdominal discomfort even with sitting at rest. Denies recent travel or diet or medication changes. States was seen at ER within the last two months, brings hand-carried records, was told had hiatal hernia and UTI. had trouble with antibiotics given for UTI and was not sure if this ever resolved. Has not had follow up with PCP to recheck urine. Patient also notes within the last few days has developed "sores" in vaginal area and some back toward rectum. 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 Valeriano has undergone prior [...] sedation in the past. PAST MEDICAL HISTORY PAST MEDICAL HISTORY Diagnosis Date Abdominal pain [...] 06/29/2014 Vitamin D deficiency PAST SURGICAL HISTORY PAST SURGICAL HISTORY Procedure Laterality Date ABDOMINAL SURGERY HX CATARACT SURGERY, COMPLEX right CHG DELIVERY 1970 COLONOSCOPY 12/27/2013 COLONOSCOPY SCRN NOT HIGH RISK 05/06/2020 EGD 05/06/2020 EGD INTRALUMINAL TUBE/CATHETER INSERTION 01/06/2014 [facility] EGD TRANSORAL BIOPSY SINGLE/MULTIPLE 12/12/2013 mild gastritis EYE SURGERY HX LAPAROSCOPY SURG CHOLECYSTECTOMY 11/17/2013 LEFT HEART CATH,PERCUTANEOUS 12/04/2013 Cardiac cath, L heart TONSILLECTOMY HX CURRENT MEDICATIONS Current Outpatient Medications Medication Sig finerenone (KERENDIA) [...] Dissolve 1 tablet under the tongue as neededfor Chest Pain. aspirin, enteric coated 81 mg [...] tablets by mouth twice daily. (Patient not taking:Reported on 05/17/2020 ) benzonatate (TESSALON PERLES) 100 [...] (Patient not taking: Reported on 07/10/2018 ) lxuwda-vgypmqzv-asrtpkw (ZENPEP) 5,000-17,000 -27,000 unit cpDR 1 capsule by mouth 5 times/day (Patient not taking: Reported on 07/10/2018 ) pantoprazole DR (PROTONIX) 40 mg tablet Take 1 tablet by mouth once daily. (Patient not taking: Reported on 07/10/2018 ) magnesium oxide (MAG-OX) 400 mg tablet Take 1 tablet by mouth once daily. Chromium Picolinate 200 mcg cap Take by mouth. vit J-ridwdao-wqbo-rutin-hb196 (BIOFLEX) 213-24-31-40 mg tab Take by mouth. ascorbic acid (VITAMIN C) 500 mg tablet Take 1 tablet by mouth once daily. Pt takes 2000 mg daily Cinnamon Bark 500 mg cap Take by mouth. Ginkgo Biloba (GINKGO) 60 mg tab Take by mouth. metoclopramide HCl (REGLAN) 5 mg tablet Take 1 tablet by mouth four times daily. (Patient not taking: Reported on 07/10/2018 ) No current facility-administered medications for this visit. ALLERGIES: Baclofen, Prilosec [Omeprazole Magnesium], and Tessalon [Benzonatate] PERSONAL HISTORY: SOCIAL HISTORY Social History Tobacco Use Smoking status: Former Packs/day: 2.00 Years: 25.00 Additional pack years: 0.00 Total pack years: 50.00 Types: Cigarettes Quit date: 09/14/1991 Years since quittin.6 Smokeless tobacco: Never Tobacco comments: Quit 1991 Vaping Use Vaping Use: Never used Substance Use Topics Alcohol use: No Drug use: No FAMILY HISTORY: FAMILY HISTORY FAMILY HISTORY Problem Relation Age of Onset Diabetes Sister Heart Father Heart Sister Heart Brother REVIEW OF SYMPTOMS: The review of systems data was entered by the nurse and reviewed by nm Nursing Notes: Jahaira Crews LPN 04/25/2023 11:05 AM Signed REVIEW OF SYSTEMS: General: The patient denies fatigue, denies weight loss, denies weight gain, denies feeling hot, and denies feelings of cold. Eyes: The patient denies glaucoma, denies eye injury/surgery, wears glasses or contacts. Ear/Nose/Throat: The patient NOTES allergies, denies hayfever, denies ear infections, and denies bloody noses. Cardiovascular: The patient NOTES chest pain, denies heart disease, NOTES high blood pressure,NOTEScardiac stent, denies prior heart attack, NOTES irregular heart beat, NOTES high cholesterol, denies poor circulation, denies heart failure, other cardiac issues, denies claudication, denies cold feet, denies peripheral arterial stent. Respiratory: The patient denies tuberculosis, denies pneumonia, denies frequent cough, denies pulmonary embolism, denies shortness of breath, and denies coughing up blood. Gastrointestinal: The patient NOTES difficulty swallowing, NOTES acid reflux, denies ulcers, deniesvomiting, denies jaundice/hepatitis, denies gallbladder problems, denies black or tarry stools, denies hemorrhoids, denies bleeding from rectum, denies diverticulitis, NOTES constipation, NOTES diarrhea, denies loss of stool control, and denies hernias. Kidney/Bladder: The patient denies kidney stones, denies urine infections, and denies bloody urine. Skin: The patient denies a history of skin cancer, denies bleeding/changing moles, and denies a history of skin rash. Neurologic: The patient denies a history of epilepsy/convulsions, denies headaches, denies head/spinal injuries, and denies stroke/TIA. Psychiatric: The patient denies psychiatric medications, denies depression, and denies voices, denies substance abuse. Endocrine: The patient denies thyroid disorders, NOTES diabetes, and denies hormonal problems. Hematologic: The patient denies a history of bruising, denies bleeding, and denies anemia, denies blood clots. Infections: The patient denies a history of measles and mumps, denies rheumatic fever, and denies sexually transmitted diseases. Musculoskeletal: The patient NOTES back pain/injury, NOTES back problems, NOTES sciatica, NOTES knee/foot trouble, NOTES arthritis, or denies gout. When was patient's last Mammogram screening? N/A Last Colonoscopy: 2020 Jahaira Crews LPN I have confirmed and edited as necessary, the PFSH and ROS obtained by others. PHYSICAL EXAMINATION: General: The patient is 77 year old female, well nourished, well hydrated in no acute distress. Thepatient is oriented to time, place, and person. VITALS: Blood pressure 118/80, pulse 87, temperature 36.2 C (97.2 F), height 147.3 cm (4' 10"), weight 58.3 kg (128 lb 9.6 oz), SpO2 98%. Body mass index is 26.88 kg/m . HEENT: Normal cephalic, ataumatic, pupils are equally round, sclera are anicteric, mucous membranesare moist, oropharynx is clear. Neck has no masses, asymmetry or lymphadenopathy. Respiratory: Clear to auscultation and percussion. Normal respiratory excursion and pattern. Cardiac: Examination is regular rate and rhythm. Normal S1/S2 Abdominal exam: +diffuse generalized TTP without rebound or guarding. +tenderness over left flank and back. No hepatosplenomegaly. No palpable hernias. Extremities: no clubbing, cyanosis or edema. No adenopathy. LABORATORY VALUES: As Noted RADIOLOGIC STUDIES: As Noted Assessment IMPRESSION: diffuse generalized abdominal discomfort. Change in stool. History of UTI without symptom resolution following treatment, has not had recheck or referral to specialist PLAN: I have reviewed my findings with the surgeon. Will plan for upper and lower endoscopy, once patient's UTI symptoms have been fully evaluated. We discussed the risks and benefits of the planned endoscopy. I have informed the patient that complications can occur including failure to complete the endoscopy and perforation. The patient had the opportunity to ask questions concerning the plannedendoscopy. My staff has also explained the procedure to the patient in understandable terms and hasgiven the patient printed material concerning the procedure. The patient freely consents to surgery. I plan to use Golytely bowel preparation Follow up with PCP and urology for complaints of Sx from UTI not feeling completely resolved per patient since treatment, and left flank pain. Patient requested to have UA completed here while stopping at lab for stool tests. Labs ordered, however emphasized need to follow up with appropriate provider for this. 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 Kimball after endoscopy to review results and recommendations Patient verbalized understanding of all above and agreed with the plan. Diagnoses: (R19.4) Change in bowel habits (primary encounter diagnosis) (R19.5) Mucus in stool (R10.84) Generalized abdominal pain (Z87.440) History of UTI Consultation requested by Dr. Ramsay for an opinion regarding abdominal discomfort and need for colonoscopy. My final recommendations will be communicated back to the requesting physician by way of shared Medical record or letter to requesting physician via US mail. I spent a total of 60 minutes on the date of the service which included preparing to see the patient, [id number] patient care, completing clinical documentation, obtaining and/or reviewing separately obtained history, performing a medically appropriate examination, counseling and educating the pat ient/family/caregiver, ordering medications, tests, or procedures, communicating with other HCPs (not separately reported), and care coordination (not separately reported). Carmen Willis PA-C [facility]04-30-2024 History and physical note* Eriberto Kimball MD - 08/14/2023 11:15 AM EDT UPDATED PROCEDURAL SEDATION HISTORY AND PHYSICAL EXAMINATION SERVICE DATE: 08/14/2023 SERVICE TIME: 11:21 AM PHYSICAL EXAM MUST BE COMPLETED ON ADMISSION PROCEDURE: Procedure Indications: The History and Physical (completed in the past 30 days) has been reviewed and the patient has beenexamined. The contents accurately reflect the patient's condition with the following additions or revisions since the H&P was completed. ASA Class: ASA Class:: Patient with severe systemic disease Examination indicates no changes. AIRWAY: Airway Visualization of Uvula: Yes Mouth opening greater than 2 fingerbreadths: Yes Neck Full Range of Motion: Yes LUNGS: Lungs clear to auscultation CARDIAC: Regular rhythm,Regular rate Provisional Diagnosis/Treatment Plan: bloating, abdominal complaints, change in bowel habits - EGD and Colonoscopy SEDATION GOAL: Moderate This H&P can be found in the attached. SIGNATURE: Eriberto Kimball MD PATIENT NAME: Valeriano Cross DATE: August 14, 2023 TIME: 11:21 AM Source Note - Eriberto Kimball MD - 08/14/2023 11:15 AM EDT Images from the original note were not included. HISTORY AND PHYSICAL Valeriano Cross 1945 REFERRING PHYSICIAN: No ref. provider found CHIEF COMPLAINT: Consult (EGD follow up 05/17/20) HPI: The patient is a 77 year old female referred for endoscopy. Valeriano notes multiple complaints at today's visit. Primary complaint is diffuse abdominal pain x several weeks, worse in the left upper quadrant of the abdomen. Describes as constant, burning in character, occasionally with radiationinto her back and occasionally with radiation into the right side. Has had some nausea and states occasionally pain will make her feel like she is going to pass out. Denies fever or chills currently,but notes had a couple of days in the last week where she did feel feverish. Patient notes a change in bowels x the last couple of months. Describes stools as more mucousy thanusual. Denies blood or black stools. Occasionally will note some bandlike lower abdominal discomfort even with sitting at rest. Denies recent travel or diet or medication changes. was seen at ER within the last two months, brings hand-carried records, was told had hiatal hernia and UTI. had trouble with antibiotics given for UTI and was not sure if this ever resolved. Has not had follow up with PCP to recheck urine. Patient also notes within the last few days has developed "sores" in vaginal area and some back toward rectum. 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 Valeriano has undergone prior [...] sedation in the past. PAST MEDICAL HISTORY PAST MEDICAL HISTORY Diagnosis Date Abdominal pain [...] 06/29/2014 Vitamin D deficiency PAST SURGICAL HISTORY PAST SURGICAL HISTORY Procedure Laterality Date ABDOMINAL SURGERY HX CATARACT SURGERY, COMPLEX right CHG DELIVERY 1970 COLONOSCOPY 12/27/2013 COLONOSCOPY SCRN NOT HIGH RISK 05/06/2020 EGD 05/06/2020 EGD INTRALUMINAL TUBE/CATHETER INSERTION 01/06/2014 [facility] EGD TRANSORAL BIOPSY SINGLE/MULTIPLE 12/12/2013 mild gastritis EYE SURGERY HX LAPAROSCOPY SURG CHOLECYSTECTOMY 11/17/2013 LEFT HEART CATH,PERCUTANEOUS 12/04/2013 Cardiac cath, L heart TONSILLECTOMY HX CURRENT MEDICATIONS Current Outpatient Medications Medication Sig finerenone (KERENDIA) [...] Dissolve 1 tablet under the tongue as neededfor Chest Pain. aspirin, enteric coated 81 mg [...] tablets by mouth twice daily. (Patient not taking:Reported on 05/17/2020 ) benzonatate (TESSALON PERLES) 100 [...] (Patient not taking: Reported on 07/10/2018 ) sddnwe-fjpezemw-ecqdfuy (ZENPEP) 5,000-17,000 -27,000 unit cpDR 1 capsule by mouth 5 times/day (Patient not taking: Reported on 07/10/2018 ) pantoprazole DR (PROTONIX) 40 mg tablet Take 1 tablet by mouth once daily. (Patient not taking: Reported on 07/10/2018 ) magnesium oxide (MAG-OX) 400 mg tablet Take 1 tablet by mouth once daily. Chromium Picolinate 200 mcg cap Take by mouth. vit S-frqhvxf-xxqq-rutin-hb196 (BIOFLEX) 444-57-83-40 mg tab Take by mouth. ascorbic acid (VITAMIN C) 500 mg tablet Take 1 tablet by mouth once daily. Pt takes 2000 mg daily Cinnamon Bark 500 mg cap Take by mouth. Ginkgo Biloba (GINKGO) 60 mg tab Take by mouth. metoclopramide HCl (REGLAN) 5 mg tablet Take 1 tablet by mouth four times daily. (Patient not taking: Reported on 07/10/2018 ) No current facility-administered medications for this visit. ALLERGIES: Baclofen, Prilosec [Omeprazole Magnesium], and Tessalon [Benzonatate] PERSONAL HISTORY: SOCIAL HISTORY Social History Tobacco Use Smoking status: Former Packs/day: 2.00 Years: 25.00 Additional pack years: 0.00 Total pack years: 50.00 Types: Cigarettes Quit date: 09/14/1991 Years since quittin.6 Smokeless tobacco: Never Tobacco comments: Quit 1991 Vaping Use Vaping Use: Never used Substance Use Topics Alcohol use: No Drug use: No FAMILY HISTORY: FAMILY HISTORY FAMILY HISTORY Problem Relation Age of Onset Diabetes Sister Heart Father Heart Sister Heart Brother REVIEW OF SYMPTOMS: The review of systems data was entered by the nurse and reviewed by nm Nursing Notes: Jahaira Crews LPN 04/25/2023 11:05 AM Signed REVIEW OF SYSTEMS: General: The patient denies fatigue, denies weight loss, denies weight gain, denies feeling hot, and denies feelings of cold. Eyes: The patient denies glaucoma, denies eye injury/surgery, wears glasses or contacts. Ear/Nose/Throat: The patient NOTES allergies, denies hayfever, denies ear infections, and denies bloody noses. Cardiovascular: The patient NOTES chest pain, denies heart disease, NOTES high blood pressure,NOTEScardiac stent, denies prior heart attack, NOTES irregular heart beat, NOTES high cholesterol, denies poor circulation, denies heart failure, other cardiac issues, denies claudication, denies cold feet, denies peripheral arterial stent. Respiratory: The patient denies tuberculosis, denies pneumonia, denies frequent cough, denies pulmonary embolism, denies shortness of breath, and denies coughing up blood. Gastrointestinal: The patient NOTES difficulty swallowing, NOTES acid reflux, denies ulcers, deniesvomiting, denies jaundice/hepatitis, denies gallbladder problems, denies black or tarry stools, denies hemorrhoids, denies bleeding from rectum, denies diverticulitis, NOTES constipation, NOTES diarrhea, denies loss of stool control, and denies hernias. Kidney/Bladder: The patient denies kidney stones, denies urine infections, and denies bloody urine. Skin: The patient denies a history of skin cancer, denies bleeding/changing moles, and denies a history of skin rash. Neurologic: The patient denies a history of epilepsy/convulsions, denies headaches, denies head/spinal injuries, and denies stroke/TIA. Psychiatric: The patient denies psychiatric medications, denies depression, and denies voices, denies substance abuse. Endocrine: The patient denies thyroid disorders, NOTES diabetes, and denies hormonal problems. Hematologic: The patient denies a history of bruising, denies bleeding, and denies anemia, denies blood clots. Infections: The patient denies a history of measles and mumps, denies rheumatic fever, and denies sexually transmitted diseases. Musculoskeletal: The patient NOTES back pain/injury, NOTES back problems, NOTES sciatica, NOTES knee/foot trouble, NOTES arthritis, or denies gout. When was patient's last Mammogram screening? N/A Last Colonoscopy: 2020 Jahaira Crews LPN I have confirmed and edited as necessary, the PFSH and ROS obtained by others. PHYSICAL EXAMINATION: General: The patient is 77 year old female, well nourished, well hydrated in no acute distress. Thepatient is oriented to time, place, and person. VITALS: Blood pressure 118/80, pulse 87, temperature 36.2 C (97.2 F), height 147.3 cm (4' 10"), weight 58.3 kg (128 lb 9.6 oz), SpO2 98%. Body mass index is 26.88 kg/m . HEENT: Normal cephalic, ataumatic, pupils are equally round, sclera are anicteric, mucous membranesare moist, oropharynx is clear. Neck has no masses, asymmetry or lymphadenopathy. Respiratory: Clear to auscultation and percussion. Normal respiratory excursion and pattern. Cardiac: Examination is regular rate and rhythm. Normal S1/S2 Abdominal exam: +diffuse generalized TTP without rebound or guarding. +tenderness over left flank and back. No hepatosplenomegaly. No palpable hernias. Extremities: no clubbing, cyanosis or edema. No adenopathy. LABORATORY VALUES: As Noted RADIOLOGIC STUDIES: As Noted Assessment IMPRESSION: diffuse generalized abdominal discomfort. Change in stool. History of UTI without symptom resolution following treatment, has not had recheck or referral to specialist PLAN: I have reviewed my findings with the surgeon. Will plan for upper and lower endoscopy, once patient's UTI symptoms have been fully evaluated. We discussed the risks and benefits of the planned endoscopy. I have informed the patient that complications can occur including failure to complete the endoscopy and perforation. The patient had the opportunity to ask questions concerning the plannedendoscopy. My staff has also explained the procedure to the patient in understandable terms and hasgiven the patient printed material concerning the procedure. The patient freely consents to surgery. I plan to use [facility] bowel preparation Follow up with PCP and urology for complaints of Sx from UTI not feeling completely resolved per patient since treatment, and left flank pain. Patient requested to have UA completed here while stopping at lab for stool tests. Labs ordered, however emphasized need to follow up with appropriate provider for this. 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 Kimball after endoscopy to review results and recommendations Patient verbalized understanding of all above and agreed with the plan. Diagnoses: (R19.4) Change in bowel habits (primary encounter diagnosis) (R19.5) Mucus in stool (R10.84) Generalized abdominal pain (Z87.440) History of UTI Consultation requested by Dr. Ramsay for an opinion regarding abdominal discomfort and need for colonoscopy. My final recommendations will be communicated back to the requesting physician by way of shared Medical record or letter to requesting physician via US mail. I spent a total of 60 minutes on the date of the service which included preparing to see the patient, oucc-rs-anus patient care, completing clinical documentation, obtaining and/or reviewing separately obtained history, performing a medically appropriate examination, counseling and educating the pat ient/family/caregiver, ordering medications, tests, or procedures, communicating with other HCPs (not separately reported), and care coordination (not separately reported). Carmen Willis PA-C * Eriberto Kimball MD - 08/14/2023 11:15 AM EDT Images from the original note were not included. HISTORY AND PHYSICAL Valeriano Sanchez Large 1945 REFERRING PHYSICIAN: No ref. provider found CHIEF COMPLAINT: Consult (EGD follow up 05/17/20) HPI: The patient is a 77 year old female referred for endoscopy. Valeriano notes multiple complaints at today's visit. Primary complaint is diffuse abdominal pain x several weeks, worse in the left upper quadrant of the abdomen. Describes as constant, burning in character, occasionally with radiationinto her back and occasionally with radiation into the right side. Has had some nausea and states occasionally pain will make her feel like she is going to pass out. Denies fever or chills currently,but notes had a couple of days in the last week where she did feel feverish. Patient notes a change in bowels x the last couple of months. Describes stools as more mucousy thanusual. Denies blood or black stools. Occasionally will note some bandlike lower abdominal discomfort even with sitting at rest. Denies recent travel or diet or medication changes. States was seen at ER within the last two months, brings hand-carried records, was told had hiatal hernia and UTI. had trouble with antibiotics given for UTI and was not sure if this ever resolved. Has not had follow up with PCP to recheck urine. Patient also notes within the last few days has developed "sores" in vaginal area and some back toward rectum. 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 Valeriano has undergone prior [...] sedation in the past. PAST MEDICAL HISTORY PAST MEDICAL HISTORY Diagnosis Date Abdominal pain [...] 06/29/2014 Vitamin D deficiency PAST SURGICAL HISTORY PAST SURGICAL HISTORY Procedure Laterality Date ABDOMINAL SURGERY HX CATARACT SURGERY, COMPLEX right CHG DELIVERY 1970 COLONOSCOPY 12/27/2013 COLONOSCOPY SCRN NOT HIGH RISK 05/06/2020 EGD 05/06/2020 EGD INTRALUMINAL TUBE/CATHETER INSERTION 01/06/2014 [facility] EGD TRANSORAL BIOPSY SINGLE/MULTIPLE 12/12/2013 mild gastritis EYE SURGERY HX LAPAROSCOPY SURG CHOLECYSTECTOMY 11/17/2013 LEFT HEART CATH,PERCUTANEOUS 12/04/2013 Cardiac cath, L heart TONSILLECTOMY HX CURRENT MEDICATIONS Current Outpatient Medications Medication Sig finerenone (KERENDIA) [...] Dissolve 1 tablet under the tongue as neededfor Chest Pain. aspirin, enteric coated 81 mg [...] tablets by mouth twice daily. (Patient not taking:Reported on 05/17/2020 ) benzonatate (TESSALON PERLES) 100 [...] (Patient not taking: Reported on 07/10/2018 ) fhhbil-yexwzgsm-kretnkp (ZENPEP) 5,000-17,000 -27,000 unit cpDR 1 capsule by mouth 5 times/day (Patient not taking: Reported on 07/10/2018 ) pantoprazole DR (PROTONIX) 40 mg tablet Take 1 tablet by mouth once daily. (Patient not taking: Reported on 07/10/2018 ) magnesium oxide (MAG-OX) 400 mg tablet Take 1 tablet by mouth once daily. Chromium Picolinate 200 mcg cap Take by mouth. vit H-cruestf-ryao-rutin-hb196 (BIOFLEX) 586-41-78-40 mg tab Take by mouth. ascorbic acid (VITAMIN C) 500 mg tablet Take 1 tablet by mouth once daily. Pt takes 2000 mg daily Cinnamon Bark 500 mg cap Take by mouth. Ginkgo Biloba (GINKGO) 60 mg tab Take by mouth. metoclopramide HCl (REGLAN) 5 mg tablet Take 1 tablet by mouth four times daily. (Patient not taking: Reported on 07/10/2018 ) No current facility-administered medications for this visit. ALLERGIES: Baclofen, Prilosec [Omeprazole Magnesium], and Tessalon [Benzonatate] PERSONAL HISTORY: SOCIAL HISTORY Social History Tobacco Use Smoking status: Former Packs/day: 2.00 Years: 25.00 Additional pack years: 0.00 Total pack years: 50.00 Types: Cigarettes Quit date: 09/14/1991 Years since quittin.6 Smokeless tobacco: Never Tobacco comments: Quit 1991 Vaping Use Vaping Use: Never used Substance Use Topics Alcohol use: No Drug use: No FAMILY HISTORY: FAMILY HISTORY FAMILY HISTORY Problem Relation Age of Onset Diabetes Sister Heart Father Heart Sister Heart Brother REVIEW OF SYMPTOMS: The review of systems data was entered by the nurse and reviewed by me Nursing Notes: Jahaira Crews LPN 04/25/2023 11:05 AM Signed REVIEW OF SYSTEMS: General: The patient denies fatigue, denies weight loss, denies weight gain, denies feeling hot, and denies feelings of cold. Eyes: The patient denies glaucoma, denies eye injury/surgery, wears glasses or contacts. Ear/Nose/Throat: The patient NOTES allergies, denies hayfever, denies ear infections, and denies bloody noses. Cardiovascular: The patient NOTES chest pain, denies heart disease, NOTES high blood pressure,NOTEScardiac stent, denies prior heart attack, NOTES irregular heart beat, NOTES high cholesterol, denies poor circulation, denies heart failure, other cardiac issues, denies claudication, denies cold feet, denies peripheral arterial stent. Respiratory: The patient denies tuberculosis, denies pneumonia, denies frequent cough, denies pulmonary embolism, denies shortness of breath, and denies coughing up blood. Gastrointestinal: The patient NOTES difficulty swallowing, NOTES acid reflux, denies ulcers, deniesvomiting, denies jaundice/hepatitis, denies gallbladder problems, denies black or tarry stools, denies hemorrhoids, denies bleeding from rectum, denies diverticulitis, NOTES constipation, NOTES diarrhea, denies loss of stool control, and denies hernias. Kidney/Bladder: The patient denies kidney stones, denies urine infections, and denies bloody urine. Skin: The patient denies a history of skin cancer, denies bleeding/changing moles, and denies a history of skin rash. Neurologic: The patient denies a history of epilepsy/convulsions, denies headaches, denies head/spinal injuries, and denies stroke/TIA. Psychiatric: The patient denies psychiatric medications, denies depression, and denies voices, denies substance abuse. Endocrine: The patient denies thyroid disorders, NOTES diabetes, and denies hormonal problems. Hematologic: The patient denies a history of bruising, denies bleeding, and denies anemia, denies blood clots. Infections: The patient denies a history of measles and mumps, denies rheumatic fever, and denies sexually transmitted diseases. Musculoskeletal: The patient NOTES back pain/injury, NOTES back problems, NOTES sciatica, NOTES knee/foot trouble, NOTES arthritis, or denies gout. When was patient's last Mammogram screening? N/A Last Colonoscopy: 2020 Jahaira Crews LPN I have confirmed and edited as necessary, the PFSH and ROS obtained by others. PHYSICAL EXAMINATION: General: The patient is 77 year old female, well nourished, well hydrated in no acute distress. Thepatient is oriented to time, place, and person. VITALS: Blood pressure 118/80, pulse 87, temperature 36.2 C (97.2 F), height 147.3 cm (4' 10"), weight 58.3 kg (128 lb 9.6 oz), SpO2 98%. Body mass index is 26.88 kg/m . HEENT: Normal cephalic, ataumatic, pupils are equally round, sclera are anicteric, mucous membranesare moist, oropharynx is clear. Neck has no masses, asymmetry or lymphadenopathy. Respiratory: Clear to auscultation and percussion. Normal respiratory excursion and pattern. Cardiac: Examination is regular rate and rhythm. Normal S1/S2 Abdominal exam: +diffuse generalized TTP without rebound or guarding. +tenderness over left flank and back. No hepatosplenomegaly. No palpable hernias. Extremities: no clubbing, cyanosis or edema. No adenopathy. LABORATORY VALUES: As Noted RADIOLOGIC STUDIES: As Noted Assessment IMPRESSION: diffuse generalized abdominal discomfort. Change in stool. History of UTI without symptom resolution following treatment, has not had recheck or referral to specialist PLAN: I have reviewed my findings with the surgeon. Will plan for upper and lower endoscopy, once patient's UTI symptoms have been fully evaluated. We discussed the risks and benefits of the planned endoscopy. I have informed the patient that complications can occur including failure to complete the endoscopy and perforation. The patient had the opportunity to ask questions concerning the plannedendoscopy. My staff has also explained the procedure to the patient in understandable terms and hasgiven the patient printed material concerning the procedure. The patient freely consents to surgery. [facility] Follow up with PCP and urology for complaints of Sx from UTI not feeling completely resolved per patient since treatment, and left flank pain. Patient requested to have UA completed here while stopping at lab for stool tests. Labs ordered, however emphasized need to follow up with appropriate provider for this. 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 Kimball after endoscopy to review results and recommendations Patient verbalized understanding of all above and agreed with the plan. Diagnoses: (R19.4) Change in bowel habits (primary encounter diagnosis) (R19.5) Mucus in stool (R10.84) Generalized abdominal pain (Z87.440) History of UTI Consultation requested by Dr. Ramsay for an opinion regarding abdominal discomfort and need for colonoscopy. My final recommendations will be communicated back to the requesting physician by way of shared Medical record or letter to requesting physician via US mail. I spent a total of 60 minutes on the date of the service which included preparing to see the patient, notm-hu-qmub patient care, completing clinical documentation, obtaining and/or reviewing separately obtained history, performing a medically appropriate examination, counseling and educating the pat ient/family/caregiver, ordering medications, tests, or procedures, communicating with other HCPs (not separately reported), and care coordination (not separately reported). Carmen Willis PA-C [facility] Tele[facility] encounter Note * Telephone Encounter - Eriberto Kimball MD - 08/06/2023 5:43 PM EDT Refhamlet null [facility]04-22-[facility] Miscellaneous Notes* Telephone Encounter - Eriberto Kimball MD - 08/06/2023 5:43 PM EDT Refhamlet null documented in this encounterCos[facility]04[facility] Telephone encounter Note * Telephone Encounter - Ericka Sim - 07/25/2023 11:23 AM EDT Patient scheduled in [facility] with Dr. Kimball 08/28/2023 [facility]04[facility] Telephone encounter Note* Telephone Encounter - Ericka Sim - 07/25/2023 11:23 AM EDT Images from the original note were not included. Eriberto Kimball MD You Just now (11:19 AM) [facility] is fine [facility]04-10-2024 Miscellaneous Notes* Telephone Encounter - Ericka Sim - 07/25/2023 11:23 AM EDT Patient scheduled in [facility] with Dr. Kimball 08/28/2023 * Telephone Encounter - Ericka Sim - 07/25/2023 11:23 AM EDT Images from the original note were not included. Eriberto Kimball MD You Just now (11:19 AM) [facility] is fine * Telephone Encounter - Ericka Sim - 07/25/2023 10:59 AM EDT Clearance received. Per Dr. Medina patient is cleared to proceed. Please advise if patient needs to be done in [facility] or [place]? See scanned doc * Telephone Encounter - Ericka Sim - 07/17/2023 9:55 AM EDT Clearance forms refaxed. 2nd attempt for response Ericka Sim Ethanol Operations Manager * Telephone Encounter - Ericka Sim - 06/29/2023 11:31 AM EDT Clearance forms faxed to propulsion machinery service engineer Dr. Medina - [facility] office See scanned docs. Awaiting clearance to be sent back on regards to scheduling scopes * Telephone Encounter - Daniela Cole RN - 06/29/2023 9:17 AM EDT Received phone call from patient's daughter, Valeriano Rob. Valeriano reports patient's nephrologistDr. Medina ([facility] office) has cleared her to schedule EGD and Colonoscopy. Advised her that our office would contact her with next steps once advised by Dr. Kimball. She verbalized understanding. * Telephone Encounter - Ericka Sim - 06/28/2023 3:07 PM EDT Patient came in and stopped by the front office secretary asking if she can be scheduled for upper and lower scopes here in [facility] with Dr. Kimball Patient stated since seeing Carmen Willis in April she has had to have a catheter placed 3 separatetimes due to not being able to empty her bladder. Patient stated her GI symptoms of not of not being able to have a bowel movement have worsened and is wanting to know what she can do. Patient stated her kidney doctor would not "release me until I see him next" patient stated her next appointment was in July. No clearance forms received Dr. Kimball please review if patient can proceed with scheduling or if she needs to be re-evaluatedto be done here at the [facility] and advise next step for patient Ericka Sim Ethanol Operations Manager Please note there is a following encounter regarding the attempts to schedule and complete scopes for patient from 04/26/2023 (day after consult with Carmen Willis) * Telephone Encounter - Elke Weinstein - 06/01/2023 3:12 PM EST Patient has been scheduled at [facility] for her colonoscopy & EGD 05-29-2023 but had to be cancelled due to being hospitalized. She had a catheter placed which is now removed and she is seeing Dr. Medina on [place] on June. We told patient we will call her to reschedule the procedures once we get clearance. Patient is ok if we talk to her daughter Valeriano @ [phone] Elke Js documented in this encounterCos[facility]04-10-20[facility] Telephone encounter Note * Telephone Encounter - Ericka Sim - 07/25/2023 10:59 AM EDT Clearance received. Per Dr. Medina patient is cleared to proceed. Please advise if patient needs to be done in [facility] or [place]? See scanned doc [facility]04-[facility] Telephone encounter Note* Telephone Encounter - Ericka Sim - 07/17/2023 9:55 AM EDT Clearance forms refaxed. 2nd attempt for response Ericka Sim Ethanol Operations Manager [facility]03-[facility] Telephone encounter Note* Telephone Encounter - Ericka Sim - 06/29/2023 11:31 AM EDT Clearance forms faxed to propulsion machinery service engineer Dr. Medina - [facility] office See scanned docs. Awaiting clearance to be sent back on regards to scheduling scopes [facility]03-[facility] Telephone encounter Note* Telephone Encounter - Daniela Cole RN - 06/29/2023 9:17 AM EDT Received phone call from patient's daughter, Valeriano Rob. Valeriano reports patient's nephrologistDr. Medina ([facility] office) has cleared her to schedule EGD and Colonoscopy. Advised her that our office would contact her with next steps once advised by Dr. Kimball. She verbalized understanding. [facility]03[facility] Telephone encounter Note* Telephone Encounter - Ericka Sim - 06/28/2023 3:07 PM EDT Patient came in and stopped by the front office secretary asking if she can be scheduled for upper and lower scopes here in [facility] with Dr. Kimball Patient stated since seeing Carmen Willis in April she has had to have a catheter placed 3 separatetimes due to not being able to empty her bladder. Patient stated her GI symptoms of not of not being able to have a bowel movement have worsened and is wanting to know what she can do. Patient stated her kidney doctor would not "release me until I see him next" patient stated her next appointment was in July. No clearance forms received Dr. Kimball please review if patient can proceed with scheduling or if she needs to be re-evaluatedto be done here at the [facility] and advise next step for patient Ericka Sim Ethanol Operations Manager Please note there is a following encounter regarding the attempts to schedule and complete scopes for patient from 04/26/2023 (day after consult with Carmen Willis) [facility] Tele[facility] encounter Note* Telephone Encounter - Elke Weinstein - 06/01/2023 3:12 PM EST Patient has been scheduled at [facility] for her colonoscopy & EGD 05-29-2023 but had to be cancelled due to being hospitalized. She had a catheter placed which is now removed and she is seeing Dr. Medina [place] on June. We told patient we will call her to reschedule the procedures once we get clearance. Patient is ok if we talk to her daughter Valeriano @ [phone] Elke Weinstein [facility] Work Phone: 1(510) 131-527801-29-2024 NoteHNO ID: [id number] Author: MELLY CARTAGENA PA-C Service: ? Author Type: Physician Asbestos Siding Installer Type: Progress Notes Filed: 05/14/2023 14:06 Note Text: ESTABLISHED PATIENT OFFICE VISIT HISTORY OF PRESENT ILLNESS: Valeriano Cross is a 77 year old female, Ht 149.9 cm (4' 11") BMI 26.26 kg/m2 with a PMH significant for pvr check. Pt removed catheter this am, has voided 3 times, feels well. Pvr 1cc. LAB: Creatinine Date Value Ref Range Status 12/02/2015 1.02 0.70 - 1.40 mg/dL Final No results found for: "PSA" Glucose, Urine Date Value 04/26/2023 Negative 08/29/2014 Negative mg/dL Bilirubin, Urine (no units) Date Value 04/26/2023 Negative 08/29/2014 Negative Ketones, Urine (no units) Date Value 04/26/2023 Negative 08/29/2014 Negative Specific [place], Ur (no units) Date Value 04/26/2023 1.018 08/29/2014 1.017 Hemoglobin/Blood,Ur Date Value 04/26/2023 1+ 08/29/2014 2+ pH, Urine (no units) Date Value 04/26/2023 5.5 08/29/2014 5.0 Protein, Urine Date Value 04/26/2023 3+ 08/29/2014 100 mg/dL Nitrites (no units) Date Value 04/26/2023 Negative 08/29/2014 Negative WBC, Urine Date Value 04/26/2023 11-20 /HPF 08/29/2014 >25 /HPF MEDICATIONS: finerenone (KERENDIA) 20 mg tablet Take 20 mg by mouth once daily. ezetimibe-atorvastatin 10-10 mg tab Take 10 mg by mouth once daily. BIOTIN ORAL [...] twice daily. (Patient not taking: Reported on 05/17/2020) benzonatate (TESSALON PERLES) 100 mg capsule Take 1 capsule by mouth three times daily as needed. (Patient not taking: Reported on 05/17/2020) albuterol HFA (PROVENTIL HFA, VENTOLIN HFA) 90 mcg/actuation inhaler Inhale 2 Puffs as instructed every 4 hours as needed. (Patient not taking: Reported on 05/17/2020) lisinopril (ZESTRIL, PRINIVIL) 20 mg tablet TAKE 1 TABLET BY MOUTH ONCE DAILY. glipiZIDE XL (GLUCOTROL XL) 2.5 mg 24 hr tablet TAKE 1 TABLET BY MOUTH ONCE DAILY. (Patient taking differently: Take 5 mg by mouth once daily.) ALPRAZolam (XANAX) 0.25 mg tablet Take 1 tablet by mouth once daily as needed for Anxiety. simvastatin (ZOCOR) 20 mg tablet Take 1 tablet by mouth daily at bedtime. (Patient not taking: Reported on 07/10/2018) nrjtdp-ovekhmxc-zeifxzc (ZENPEP) 5,000-17,000 -27,000 unit cpDR 1 capsule by mouth 5 times/day (Patient not taking: Reported on 07/10/2018) pantoprazole DR (PROTONIX) 40 mg tablet Take 1 tablet by mouth once daily. (Patient not taking: Reported on 07/10/2018) magnesium oxide (MAG-OX) 400 mg tablet Take 1 tablet by mouth once daily. (Patient not taking: Reported on 05/07/2023) Chromium Picolinate 200 mcg cap Take by mouth. (Patient not taking: Reported on 05/07/2023) vit K-pkmzimx-kram-rutin-hb196 (BIOFLEX) 970-70-59-40 mg tab Take by mouth. ascorbic acid (VITAMIN C) 500 mg tablet Take 1 tablet by mouth once daily. Pt takes 2000 mg daily Cinnamon Bark 500 mg cap Take by mouth. Ginkgo Biloba (GINKGO) 60 mg tab Take by mouth. (Patient not taking: Reported on 05/07/2023) metoclopramide HCl (REGLAN) 5 mg tablet Take 1 tablet by mouth four times daily. (Patient not taking: Reported on 07/10/2018) nitroglycerin sublingual (NITROQUICK) 0.4 mg SL tablet Dissolve 1 tablet under the tongue as needed for Chest Pain. aspirin, enteric coated 81 mg EC tablet Take 81 mg by mouth once daily. Review of Systems HISTORIES PAST MEDICAL HISTORY Diagnosis Date Abdominal pain [...] with eye complications 06/29/2014 Vitamin D deficiency FAMILY HISTORY Problem Relation Age of Onset Diabetes Sister Heart Father Heart Sister Heart Brother Social History Tobacco Use Smoking status: Former Packs/day: 2.00 Years: 25.00 Additional pack years: 0.00 Total pack years: 50.00 Types: Cigarettes Quit date: 09/14/1991 Years since quittin.6 Smokeless tobacco: Never Tobacco comments: Quit 1991 Vaping Use Vaping Use: Never used Substance Use Topics Alcohol use: No Drug use: No PHYSICAL EXAM (more content not included)...[facility] 05-07-2023 NoteHNO ID: [id number] Author: MELLY CARTAGENA PA-C Service: ? Author Type: Physician Asbestos Siding Installer Type: Progress Notes Filed: 05/07/2023 12:37 Note Text: NEW PATIENT HISTORY AND PHYSICAL EXAM PATIENT INFO: Valeriano Cross 77 year old REFERRING PROVIDER: ERIBERTO HUFF PCP YANELIS LEDESMA MARK JOSEPH PCP: Katt Ramsay MD HPI Valeriano Cross is a 77 year old female with urinary retention secondary to shingles. Pt with lim catheter. Clear urine in drainage bag. First episode of urinary retention. Discussed plan. Pt is having bowel movements. Review of Systems LAB: Creatinine Date Value Ref Range Status 12/02/2015 1.02 0.70 - 1.40 mg/dL Final No results found for: "PSA" Glucose, Urine Date Value 04/26/2023 Negative 08/29/2014 Negative mg/dL Bilirubin, Urine (no units) Date Value 04/26/2023 Negative 08/29/2014 Negative Ketones, Urine (no units) Date Value 04/26/2023 Negative 08/29/2014 Negative Specific [place], Ur (no units) Date Value 04/26/2023 1.018 08/29/2014 1.017 Hemoglobin/Blood,Ur Date Value 04/26/2023 1+ 08/29/2014 2+ pH, Urine (no units) Date Value 04/26/2023 5.5 08/29/2014 5.0 Protein, Urine Date Value 04/26/2023 3+ 08/29/2014 100 mg/dL Nitrites (no units) Date Value 04/26/2023 Negative 08/29/2014 Negative WBC, Urine Date Value 04/26/2023 11-20 /HPF 08/29/2014 >25 /HPF MEDICATIONS: finerenone (KERENDIA) 20 mg tablet Take 20 mg by mouth once daily. ezetimibe-atorvastatin 10-10 mg tab Take 10 mg by mouth once daily. BIOTIN ORAL Take by mouth. gluc amrion/chondro marion A/vit C/Mn (GLUCOSAMINE 1500 COMPLEX ORAL) Take by mouth. diclofenac sodium (VOLTAREN) 1 % topical gel Apply to affected area four times daily. TURMERIC ORAL Take by mouth. Vitamin D3-Menaquinone 7 1000-90 unit-mcg ODT Take by mouth. Vitamin E, dl, acetate, 1,000 unit capsule Take 1,000 Units by mouth once daily. beta-carotene,A,-vits C,E/mins (OCUVITE ORAL) Take by mouth. lisinopril (ZESTRIL, PRINIVIL) 20 mg tablet TAKE 1 TABLET BY MOUTH ONCE DAILY. glipiZIDE XL (GLUCOTROL XL) 2.5 mg 24 hr tablet TAKE 1 TABLET BY MOUTH ONCE DAILY. (Patient taking differently: Take 5 mg by mouth once daily.) ALPRAZolam (XANAX) 0.25 mg tablet Take 1 tablet by mouth once daily as needed for Anxiety. vit W-ymqfzna-uprc-rutin-hb196 (BIOFLEX) 225-09-42-40 mg tab Take by mouth. ascorbic acid (VITAMIN C) 500 mg tablet Take 1 tablet by mouth once daily. Pt takes 2000 mg daily Cinnamon Bark 500 mg cap Take by mouth. nitroglycerin sublingual (NITROQUICK) 0.4 mg SL tablet Dissolve 1 tablet under the tongue as needed for Chest Pain. aspirin, enteric coated 81 mg EC tablet Take 81 mg by mouth once daily. guaiFENesin (MUCINEX) 600 mg 12 hr tablet Take 2 tablets by mouth twice daily. (Patient not taking: Reported on 05/17/2020) benzonatate (TESSALON PERLES) 100 mg capsule Take 1 capsule by mouth three times daily as needed. (Patient not taking: Reported on 05/17/2020) albuterol HFA (PROVENTIL HFA, VENTOLIN HFA) 90 mcg/actuation inhaler Inhale 2 Puffs as instructed every 4 hours as needed. (Patient not taking: Reported on 05/17/2020) simvastatin (ZOCOR) 20 mg tablet Take 1 tablet by mouth daily at bedtime. (Patient not taking: Reported on 07/10/2018) vtlihj-ssxodxdf-cxgzwwz (ZENPEP) 5,000-17,000 -27,000 unit cpDR 1 capsule by mouth 5 times/day (Patient not taking: Reported on 07/10/2018) pantoprazole DR (PROTONIX) 40 mg tablet Take 1 tablet by mouth once daily. (Patient not taking: Reported on 07/10/2018) magnesium oxide (MAG-OX) 400 mg tablet Take 1 tablet by mouth once daily. (Patient not taking: Reported on 05/07/2023) Chromium Picolinate 200 mcg cap Take by mouth. (Patient not taking: Reported on 05/07/2023) Ginkgo Biloba (GINKGO) 60 mg tab Take by mouth. (Patient not taking: Reported on 05/07/2023) metoclopramide HCl (REGLAN) 5 mg tablet Take 1 tablet by mouth four times daily. (Patient not taking: Reported on 07/10/2018) HISTORIES PAST MEDICAL HISTORY Diagnosis Date Abdominal pain [...] with eye complications 06/29/2014 Vitamin D deficiency FAMILY HISTORY Problem Relation Age of Onset Diabetes Sister Heart Father Heart Sister Heart Brother SOCIAL HISTORY Social History Tobacco Use Smoking status: Former Packs/day: 2.00 Years: 25.00 Additional pack years: 0.00 Total pack years: 50.00 Types: Cigarettes Quit date: 08/16 (more content not included)...[facility] 04-27-2023 Note. MICRO - Microbiology PROCEDURE: Urine Culture [*1] SOURCE: Urine, Clean Catch BODY SITE: COLLECTED DATE/TIME: 04/25/2023 17:43 EST RECEIVED DATE/TIME: 04/26/2023 16:31 EST START DATE/TIME: 04/26/2023 16:31 EST FREE TEXT SOURCE: FINAL REPORTS Final Report [] Verified Date/Time/Personnel: 04/27/2023 14:31 EST >100,000 cfu/ml Multiple bacterial morphotypes present. Probable Contamination. Suggest recollection if clinically indicated. Performing Locations *1: This test was performed at: [address], [facility] , [facility] ([place])04-27-2023 NoteHNO ID: [id number] Author: ?, ?, ? Service: ? Author Type: ? Type: Progress Notes Filed: 04/27/2023 13:56 Note Text: Patient went to Urologist on 04-26-2023 Cancelled appointment with [facility]. Did not want to reschedule. [facility] Discharge instructions Patient Education 04/25/2023 18:47:43 Shingles (Herpes Zoster) Shingles (Herpes Zoster) Talk to your healthcare provider about the shingles vaccine. Shingles is also called herpes zoster. It is a painful skin rash caused by the herpes zoster virus.This is the same virus that causes chickenpox. [...] systems, shingles appear on more than one partof the body at once. After a few [...] itchy skin. Ask your healthcare provider about vfnx-zup-ibxkoci pain relievers. If your pain is severe, [...] and which vaccine is best for you. [id number] [employer]. [address] [place] [address], [place] [address]. All rights reserved. This information is not intended as a substitute for professional medical care. Always follow yourhealthcare professional's instructions. 04/25/2023 18:47:43 Urinary Retention, Female [...] for a few days. The catheter has aballoon on the tip, which is inflated after [...] will tell you when to return to havethe catheter removed. When to seek medical advice [...] out oCatheter stops draining for 6 hours [phone] [employer]. [address] [place] [address], [place] [address]. All rights reserved. This information is not intended as a substitute for professional medical care. Always follow yourhealthcare professional's instructions. 04/25/2023 18:47:43 Lim Catheter, Care Lim Catheter Care A Lim catheter is a rubber tube that is placed through the urethra (opening where urine comes out) and into the bladder. This helps drain urine from the bladder. There is a small balloon on the endof the tube that is inflated after insertion. [...] for repeat urine testing and catheter removal orreplacement. When to seek medical advice Call your [...] for 6 hours Weakness, dizziness, or fainting [phone] [employer]. [address] [place] [address]. All rights reserved. This information is not intended as a substitute for professional medical care. Always follow yourhealthcare professional's instructions. Follow Up Care 04/25/2023 15:02:38 With:KATT RAMSAY Address: [address] [place] [id number]- Business (1) When:2-4 days Comments:Take antibiotic as prescribed. Take antiviral for shingles. Keep Lim catheter in place. Follow-upwith your urologist. Return if any worsening or concerning symptoms. [facility] 01-10-2024 Note Discharge Instructions Thank you for allowing [facility] to assist you with your healthcare needs. The following is importantdischarge information regarding your hospital visit. Diagnosis from Today's Visit Abdominal pain Urinary retention UTI symptoms What to Do Next Instructions from Your Care Team No qualifying data available. Post Acute Orders No qualifying data available. You Need to Schedule the Following Appointments Follow Up with KATT RAMSAY When Within 2-4 days Why: Take antibiotic as prescribed. Take antiviral for shingles. Keep Lim catheter in place. Follow-up with your urologist. Return if any worsening or concerning symptoms. Where: [address] [place] [address] Business (1) Allergies Prevacid Tessalon Perles Medications Please ask your primary doctor or pharmacist before taking any other medication not listed, including over the counter drugs, herbal medications, vitamins and or supplements as they may interact withyour home medications. What How Much When Why Instructions Last Dose New cefdinir (cefdinir 300 mg oral capsule) 1 cap by mouth Every 12 hours Duration: 7 Days Printed Prescription New valACYclovir (Valtrex 1 g oral tablet) 1 tab(s) by mouth Every 8 hours Duration: 7 Days Printed Prescription Unchanged acetaminophen-hydrocodone (Bailey 325- 5 mg oral tablet) 1 tab(s) [...] skin rash caused by the herpes zoster virus.This is the same virus that causes chickenpox. [...] systems, shingles appear on more than one partof the body at once. After a few [...] itchy skin. Ask your healthcare provider about wqlt-ooo-fyibszn pain relievers. If your pain is severe, [...] and which vaccine is best for you. 5215-6665 [employer]. [address] [place] [address], [place] [address]. All rights reserved. This information is not intended as a substitute for professional medical care. Always follow yourhealthcare professional's instructions. Urinary Retention (Female) Urinary retention [...] for a few days. The catheter has aballoon on the tip, which is inflated after [...] will tell you when to return to havethe catheter removed. When to seek medical advice [...] out oCatheter stops draining for 6 hours [employer]. [address] [place] [address]. All rights reserved. This information is not intended as a substitute for professional medical care. Always follow yourhealthcare professional's instructions. Lim Catheter Care A Lim catheter is a rubber tube that is placed through the urethra (opening where urine comes out) and into the bladder. This helps drain urine from the bladder. There is a small balloon on the endof the tube that is inflated after insertion. [...] for repeat urine testing and catheter removal orreplacement. When to seek medical advice Call your [...] for 6 hours Weakness, dizziness, or fainting [employer]. [address] [place] [address]. All rights reserved. This information is not intended as a substitute for professional medical care. Always follow yourhealthcare professional's instructions. Additional Information VACCINATE! IT SAVES LIVES! Members of the community who have not yet received the COVID-19 vaccine and would like to receive it can visit one of [facility] vaccine clinics. There are many vaccine clinic locations within the [facility]. For locations and available times, please visit [email or web address]/. It is important to note that some COVID mobile vaccine clinics are held outdoors and may be canceled in rainy or stormy conditions. To learn more about pediatric vaccinations (ages 5-11), we invite you to visit the [facility] webpage. https://[email or web address].org/[email or web address]-Tejdp-Hxhlmusfgra-Iktcrjevss-Gkabx-[email or web address] stions.htmlTo learn more about the COVID-19 vaccine, we invite you to visit the CDC website for a list of frequently asked questions. https://www.cdc.gov/coronavirus/2019-ncov/vaccines/faq.html [facility] Patient Portal Access Instructions: Stay connected with your healthcare team and access your personal medical information anytime with the [facility] Patient Portal. If you would like a full copy of your medical records please contact the [facility] Medical Records Department Sunday through Sunday between 8a.m. and 4:30p.m. Please follow the directions below to access the portal: 1.Access the email account you provided upon registration to the hospital.2.Look for an invitation email from [facility].3.Open the email and access the invitation link: Accept Invitation to [facility]4.Fill in the required wilson to create your account. Sign into [email or web address] with your username and password that you [...] you will allow to register on the [facility] Patient Portal for access to your information. You can also access the [facility] Patient Portal on the [employer]. Simply click on "Health Records" under "HealthData" and then click on the [facility] logo. HOW TO SAFELY DISPOSE OF PRESCRIPTION MEDICATIONS Please use one of the following methods to safely dispose of your unused medications. 1.Use a drug disposal kit: the drug disposal pouch allows you to safely discard your old and unuseddrugs. Ask your nurse to give you one when you are discharged.2.Visit a local take-back location: Many local pharmacies and police departments have programs that collect old and unwanted prescriptiondrugs. Call your local pharmacy or go to http://Simply Hired.CrowdComfort/0E5Uz6d to find one close to you.3.Make use of household items: Use cat litter or old coffee grounds to dispose medications if other options arenot available. Mix your drugs with these household products, seal them in an airtight container andthrow it into the garbage. Call [facility]: [phone] to be sure your drugs can be [...] drowsiness, such as benzodiazepines, also known as benzos,including diazepam and alprazolam, muscle relaxants or sleep aids. Never sell or share prescriptionopioids. This is illegal. Store opioids in a [...] been reviewed and explained to me and I,VALERIANO CROSS understand my current condition and have read and understand these discharge instructions. I have received a written copy of the plan/instructions. If I have questions, I am aware that I should contact my doctor. Patient/Label Pinker Signature: Date/Time: Relationship to Patient: Witness Name/Signature: Date/Time: [facility]01-10-2024 Note ORIGINAL EXAMINATION: CT OF THE ABDOMEN [...] Date: 04/25/2023 5:32:11 PM [facility]ing [facility] Evaluation + Plan note Diagnostic Tests Pending * Urine Culture 04/25/23 [facility] 01-10-2024 NoteHNO ID: [id number] Author: CARMEN WILLIS PA-C Service: ? 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 provider found [...] was told had hiatal hernia and UTI. had trouble with antibiotics given for UTI and was not sure if this ever resolved. Has not had follow up with PCP to recheck urine. Patient also notes within the last few days has developed "sores" in vaginal area and some back toward rectum. 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 Valeriano has undergone prior [...] (Patient not taking: Reported on 07/10/2018 ) tiovnm-qdtczfby-vdblrhv (ZENPEP) 5,0 (more content not included)...[facility] Hospital Discharge instructions Patient Education 03/09/2023 18:17:04 Urinary Tract Infections in Women Urinary Tract Infections in Women Urinary tract infections (UTIs) are most often caused by bacteria. These bacteria enter the urinarytract. The bacteria may come from outside the body. Or they may travel from the skin outside the rectum or vagina into the urethra. Female anatomy makes it easy for bacteria from the bowel to enter awoman s urinary tract, which is the most common source of UTI. This means women develop UTIs more often than men. Pain in or around the urinary tract is a common UTI symptom. But the only way to knowfor sure if you have a UTI for [...] feel the urge to urinate. And always urinatebefore going to sleep. Urine that stays in your bladder can lead to infection. Try to urinate before and after sex as well. Practice good personal hygiene. Wipe yourself from front to back after using the toilet. This helpskeep bacteria from getting into the urethra. Use condoms during sex. These help prevent UTIs caused by sexually transmitted bacteria. Also don'tuse spermicides during sex. These can increase the [...] If needed, more treatment may be started. [phone] [employer]. [address] [place] [address]. All rights reserved. This information is not intended as a substitute for professional medical care. Always follow yourhealthcare professional's instructions. 03/09/2023 18:16:36 Abdominal Pain Abdominal [...] find the cause of your pain. If needed,you will have tests. Belly pain has many [...] foods again, start with small amounts of thvc-tk-zirelw, low- fat foods. These include apple sauce, toast, or [...] increase stomach acid. Don't use aspirin or kfgu-izh-snkyqcd pain and fever medicines, if possible. This includes nonsteroidal anti-inflammatory drugs (NSAIDs). Lose excess weight. Finish eating at least 2 hours before you go to bed or lie down. Raise the head of your bed. [phone] [employer]. [address] [place] [address]. All rights reserved. This information is not intended as a substitute for professional medical care. Always follow yourhealthcare professional's instructions. Follow Up Care 03/09/2023 15:29:58 With:KATT RAMSAY MD Address: [address] [place] [phone]- When:3-5 days [facility] 11-24-2023 Note Discharge Instructions Thank you for allowing [facility] to assist you with your healthcare needs. The following is importantdischarge information regarding your hospital visit. Diagnosis from Today's Visit Abdominal pain Abdominal pain What to Do Next Instructions from Your Care Team No qualifying data available. Post Acute Orders No qualifying data available. You Need to Schedule the Following Appointments Follow Up with KATT RAMSAY MD When Within 3-5 days Where: [address] [place] [phone]- Allergies Prevacid Maribel Patel Medications Please ask your primary doctor or pharmacist before taking any other medication not listed, including over the counter drugs, herbal medications, vitamins and or supplements as they may interact withyour home medications. What How Much When Why Instructions Last Dose New acetaminophen-hydrocodone (Bailey 325- 5 mg oral tablet) 1 tab(s) [...] SEET a MIN oh fen and jacquelyn droe KOE done) Lortab Elixir, Verdrocet What is [...] where to locate a drug take-back disposal program.If there is no take-back program, flush the unused medicine down the toilet. What happens if I miss a dose? Since this medicine is used for pain, you are not likely to miss a dose. Skip any missed dose if itis almost time for your next dose. Do [...] health department. Make sure any person caring foryou knows where you keep naloxone and how to use it. What should I avoid while taking acetaminophen and hydrocodone? Avoid driving or operating machinery until you know how this medicine will affect you. Dizziness ordrowsiness can cause falls, accidents, or severe injuries. [...] if you have slow breathing with long pauses,blue colored lips, or if you are hard to wake up. In rare cases, acetaminophen may cause a severe skin reaction that can be fatal. This could occur even if you have taken acetaminophen in the past and had no reaction. Stop taking this medicine and call your doctor right away if you have skin redness or a rash that spreads and causes blistering andpeeling. Call your doctor at once if you [...] may report side effects to FDA at 1-909-YJA-9466. What other drugs will affect acetaminophen and [...] affect acetaminophen and hydrocodone, including prescription and jbwy-cln-ldfyyfo medicines, vitamins, and herbal products. Not all [...] to ensure that the information provided by [employer]. ('[employer]') is accurate, up-to-date, and complete, but no guarantee is made to that effect. Drug information contained herein may be time sensitive. [employer] information has been compiled for use by healthcare practitioners and consumers in the [place] and therefore [employer] does not warrant that uses outside of the [place] are appropriate, unless specifically indicated otherwise. [employer] drug information does not endorse drugs, diagnose patients or recommend therapy. [employer] drug information isan informational resource designed to assist licensed healthcare practitioners in caring for their p atients and/or to serve consumers viewing this service as a supplement to, and not a substitute for, the expertise, skill, knowledge and judgment of healthcare practitioners. The absence of a warningfor a given drug or drug combination in no way should be construed to indicate that the drug or drug combination is safe, effective or appropriate for any given patient. [employer] does not assume any responsibility for any aspect of healthcare administered with the aid of information [employer] provides. The information contained herein is not intended to cover all possible uses, directions, precautions, warnings, drug interactions, allergic reactions, or adverse effects. If you have questions about the drugs you are taking, check with your doctor, nurse or pharmacist. Copyright 8334-0733 [employer]. Version: 19.. Revision Date: 12/04/2022. cephalexin (sef [...] may report side effects to FDA at 2-436-ARM-2767. What other drugs will affect cephalexin? Tell your doctor about all your other medicines, especially: metformin; or probenecid. This list is not complete. Other drugs may affect cephalexin, including prescription and ytdm-iij-vccbdeo medicines, vitamins, and herbal products. Not all [...] to ensure that the information provided by [employer]. ('[employer]') is accurate, up-to-date, and complete, but no guarantee is made to that effect. Drug information contained herein may be time sensitive. [employer] information has been compiled for use by healthcare practitioners and consumers in the [place] and therefore [employer] does not warrant that uses outside of the [place] are appropriate, unless specifically indicated otherwise. [employer]'s drug information does not endorse drugs, diagnose patients or recommend therapy. [employer] drug information isan informational resource designed to assist licensed healthcare practitioners in caring for their p atients and/or to serve consumers viewing this service as a supplement to, and not a substitute for, the expertise, skill, knowledge and judgment of healthcare practitioners. The absence of a warningfor a given drug or drug combination in no way should be construed to indicate that the drug or drug combination is safe, effective or appropriate for any given patient. [facility] does not assume any responsibility for any aspect of healthcare administered with the aid of information [facility] provides. The information contained herein is not intended to cover all possible uses, directions, precautions, warnings, drug interactions, allergic reactions, or adverse effects. If you have questions about the drugs you are taking, check with your doctor, nurse or pharmacist. Copyright 7108-7495 [facility]. Version: 03.16. Revision Date: 11/15/2022. Education Materials Urinary Tract Infections in Women Urinary tract infections (UTIs) are most often caused by bacteria. These bacteria enter the urinarytract. The bacteria may come from outside the body. Or they may travel from the skin outside the rectum or vagina into the urethra. Female anatomy makes it easy for bacteria from the bowel to enter awoman s urinary tract, which is the most common source of UTI. This means women develop UTIs more often than men. Pain in or around the urinary tract is a common UTI symptom. But the only way to knowfor sure if you have a UTI for [...] feel the urge to urinate. And always urinatebefore going to sleep. Urine that stays in your bladder can lead to infection. Try to urinate before and after sex as well. Practice good personal hygiene. Wipe yourself from front to back after using the toilet. This helpskeep bacteria from getting into the urethra. Use condoms during sex. These help prevent UTIs caused by sexually transmitted bacteria. Also don'tuse spermicides during sex. These can increase the [...] If needed, more treatment may be started. [id number] [employer]. [address] [place] [address]. All rights reserved. This information is not intended as a substitute for professional medical care. Always follow yourhealthcare professional's instructions. Abdominal Pain Abdominal pain is [...] find the cause of your pain. If needed,you will have tests. Belly pain has many [...] foods again, start with small amounts of kace-ca-yspgvs, low- fat foods. These include apple sauce, toast, or [...] increase stomach acid. Don't use aspirin or lmtf-nbw-iudvcjj pain and fever medicines, if possible. This includes nonsteroidal anti-inflammatory drugs (NSAIDs). Lose excess weight. Finish eating at least 2 hours before you go to bed or lie down. Raise the head of your bed. 7995-0111 [employer]. [address] [place] [address], [place] [address]. All rights reserved. This information is not intended as a substitute for professional medical care. Always follow yourhealthcare professional's instructions. Additional Information VACCINATE! IT SAVES LIVES! Members of the community who have not yet received the COVID-19 vaccine and would like to receive it can visit one of [facility] vaccine clinics. There are many vaccine clinic locations within the [facility]. For locations and available times, please visit [email or web address] It is important to note that some COVID mobile vaccine clinics are held outdoors and may be canceled in rainy or stormy conditions. To learn more about pediatric vaccinations (ages 5-11), we invite you to visit the [facility] webpage. [email or web address] learn more about the COVID-19 vaccine, we invite you to visit the CDC website for a list of frequently asked questions. https://www.cdc.gov/coronavirus/2019-ncov/vaccines/faq.html [facility] Access Instructions: Stay connected with your healthcare team and access your personal medical information anytime with the [facility]. If you would like a full copy of your medical records please contact the [facility] Medical Records Department Sunday through Sunday between 8a.m. and 4:30p.m. Please follow the directions below to access the portal: 1.Access the email account you provided upon registration to the [facility].2.Look for an invitation email from [facility].3.Open the email and access the invitation link: Accept Invitation to [facility]4.Fill in the required wilson to create your account. Sign into [email or web address] with your username and password that you [...] you will allow to register on the [facility] Portal for access to your information. You can also access the [facility] Patient Portal on the [employer]. Simply click on "Health Records" under "HealthData" and then click on the [facility] logo. HOW TO SAFELY DISPOSE OF PRESCRIPTION MEDICATIONS Please use one of the following methods to safely dispose of your unused medications. 1.Use a drug disposal kit: the drug disposal pouch allows you to safely discard your old and unuseddrugs. Ask your nurse to give you one when you are discharged.2.Visit a local take-back location: Many local pharmacies and police departments have programs that collect old and unwanted prescriptiondrugs. Call your local pharmacy or go to http://Simply Hired.CrowdComfort/8E3Gh8i to find one close to you.3.Make use of household items: Use cat litter or old coffee grounds to dispose medications if other options arenot available. Mix your drugs with these household products, seal them in an airtight container andthrow it into the garbage. Call [facility]: [phone] to be sure your drugs can be [...] drowsiness, such as benzodiazepines, also known as benzos,including diazepam and alprazolam, muscle relaxants or sleep aids. Never sell or share prescriptionopioids. This is illegal. Store opioids in a [...] been reviewed and explained to me and I,LARGE VALERIANO understand my current condition and have read and understand these discharge instructions. I have received a written copy of the plan/instructions. If I have questions, I am aware that I should contact my doctor. Patient/Label Pinker Signature: Date/Time: Relationship to Patient: Witness Name/Signature: Date/Time: [facility]11-24-2023 Note ORIGINAL EXAMINATION: CT OF THE ABDOMEN [...] Alex Hernandez MD Preliminary Report By: Amrit Monroy Electronically signed By Alex Hernandez MD Dictated Date: 03/09/2023 5:56:08 PM Prelim Date: 03/09/2023 6:08:11 PM Sign Date: 03/09/2023 6:18:39 PM Ordering Provider: [facility]10-01-2022 Evaluation note* Diagnosis Onset Date Resolution Status Chest pain acute Essential hypertension chron ic HLD (hyperlipidemia) chronic Presence of stent in coronary artery January, chronic Abnormal stress test acute Angina pectoris acute CAD (coronary artery disease) acute Diabetes mellitus acute Renal insufficiency acute S/P PTCA (percutaneous trans luminal coronary angioplasty) acute Essential hypertension chron ic HLD (hyperlipidemia) chronic [facility] Work Phone: [phone]) 876-731910-01-2022 Evaluation note* Diagnosis Onset Date Resolution Status Chest pain acute Essential hypertension chron ic HLD (hyperlipidemia) chronic Presence of stent in coronary artery January, chronic Angina pectoris acute CAD (coronary artery disease) acute Diabetes mellitus acute Renal insufficiency acute S/P PTCA (percutaneous trans luminal coronary angioplasty) acute Essential hypertension chron ic HLD (hyperlipidemia) chronic Abnormal stress test resolve d Chest pain acute Diabetes mellitus acute Essential hypertension chron ic HLD (hyperlipidemia) chronic PAD (peripheral artery disease) chronic Presence of stent in coronary artery January, chronic PAD (peripheral artery disease) chronic [facility] Work Phone: Evaluation + Plan note No data available for this section [facility] Evaluation noteNo assessment information available [facility] Work Phone: Evaluation note* Diagnosis Onset Date Resolution Status 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 Diabetes mellitus chronic Essential hypertension chron ic HLD (hyperlipidemia) chronic PAD (peripheral artery disease) chronic S/P PTCA (percutaneous trans luminal coronary angioplasty) acute 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 Essential hypertension chron ic HLD (hyperlipidemia) chronic PAD (peripheral artery disease) chronic [facility] Work Phone: Evaluation note* Diagnosis Onset Date Resolution Status S/P PTCA (percutaneous trans luminal coronary angioplasty) acute 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 Essential hypertension chron ic HLD (hyperlipidemia) chronic PAD (peripheral artery disease) chronic 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 Essential hypertension chron ic HLD (hyperlipidemia) chronic PAD (peripheral artery disease) chronic [facility] Work Phone: Evaluation note* Diagnosis Onset Date Resolution Status 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 Essential hypertension chron ic HLD (hyperlipidemia) chronic PAD (peripheral artery disease) chronic [facility] Work Phone: Evaluation note* Diagnosis Change in bowel habits Other symptoms involving digestive system Mucus in stool Nonspecific abnormal finding in stool contents Generalized abdominal pain Abdominal pain, generalized Irritable bowel syndrome without diarrhea Irritable bowel syndrome documented in this encounter [facility] Discharge instructionsAmbulatory Orders* Phase II, Outpatient Cardiac Rehab Location: None Selected [facility] Work Phone: Reason for referral (narrative)* Outpatient Procedure (Routine) - Closed Specialty Diagnoses / Procedures Referred By Contwinsome t Referred To Contact [facility] Diagnoses Change in bowel habits Mucus in stool Generalized abdominal pain Procedures COLONOSCOPY DIAGNOSTIC COLONOSCOPY FLX DX W/COLLJ SPEC WHEN PFRMD Carmen Willis PA-C [address] [place] [address] [facility] [address] [place] [address] Referral ID Status Reason Start Date Expiration Date V isits Requested Visits Authorized [id number] Closed Auto-Generate d Referral 04/25/2023 04/25/2024 1 1 * Outpatient Procedure (Routine) - Closed Specialty Diagnoses / Procedures Referred By Adeola snell Referred To Contact [facility] Diagnoses Change in bowel habits Mucus in stool Generalized abdominal pain Procedures EGD DIAGNOSTIC ESOPHAGOGASTRODUODENOSC OPY TRANSORAL DIAGNOSTIC Carmen Willis PA-C [address] [place] [address] [facility] [address] [place] [address] Referral ID Status Reason Start Date Expiration Date V isits Requested Visits Authorized [id number] Closed Auto-Generate d Referral 04/25/2023 04/25/2024 1 [facility]No reason for referral information [facility] Work [facility]: Reason for visit Narrative* Outpatient Procedure (Routine) - Closed Specialty Diagnoses / Procedures Referred By Adeola snell Referred To Contact [facility] Diagnoses Change in bowel habits Mucus in stool Generalized abdominal pain Procedures COLONOSCOPY DIAGNOSTIC COLONOSCOPY FLX DX W/COLLJ SPEC WHEN PFRMD Carmen Willis PA-C [address] [place] [address] [facility] [address] [place] [id number] Referral ID Status Reason Start Date Expiration Date V isits Requested Visits Authorized [id number] Closed Auto-Generate d Referral 04/25/2023 04/25/2024 1 1 [facility] Family History No Family History Records Found Relationship Condition Age at Onset Recorded Date/T nathalie father Myocardial infarction Unknown sister Coronary artery disease Unknown brother Coronary artery disease Unknown sister Sudden cardiac 49 Advance Directives No Advanced Directives Records Found Advance Directive Response Recorded Date/ Time Advance Directives Yes September 14 7:57am Living Will Yes September 14, 2020 7 :57am Power of Fish And Wildlife Biologist Yes September 14, 2020 7:57am Advance Directive Response Recorded Date/ Time Name of Medical Power of Fish And Wildlife Biologist aVleriano Rob February 07, 2022 9:51am Advance Directives Yes September 14 7:57am Living Will Yes February 07 9:51am Power of Fish And Wildlife Biologist Yes February 07, 2022 9:51am Advance Directive Response Recorded Date/ Time Name of Medical Power of Fish And Wildlife Biologist Valeriano Rob February 07, 2022 8:51am Advance Directives Yes September 14 6:57am Living Will Yes February 07 8:51am Power of Fish And Wildlife Biologist Yes February 07, 2022 8:51am Advance Directive Response Recorded Date/ Time Advance Directives Yes September 14 7:57am Living Will Yes February 07 9:51am Power of Fish And Wildlife Biologist Yes February 07, 2022 9:51am Advance Directive Response Recorded Date/ Time Advance Directives on File No July 13, 2022 11:26am Name of Medical Power of Fish And Wildlife Biologist Jordyn (nik ) July 13, 2022 11:26am Advance Directives Yes July 13, 023 11:26am Living Will Yes July 13, 2022 11:26am Power of Fish And Wildlife Biologist Yes July 13 11:26am Advance Directive Response Recorded Date/ Time Advance Directives Yes July 13 11:26am Living Will Yes July 13, 2022 11:26am Power of Fish And Wildlife Biologist Yes July 13 11:26am Advance Directive Response Recorded Date/ Time Advance Directives Yes July 13 023 10:26am Living Will Yes July 13, 2022 10:26am Power of Fish And Wildlife Biologist Yes July 13 10:26am Advance Directive Response Recorded Date/ Time Advance Directives Yes July 13 023 10:26am Living Will No May 03 9:45pm Power of Fish And Wildlife Biologist No May 03, 2023 9:45pm Advance Directive Response Recorded Date/ Time Advance Directives Yes July 13 11:26am Living Will No May 03 10:45pm Power of Fish And Wildlife Biologist No May 03, 2023 10:45pm Documents on File Type Date Recorded Patient Label Pinker Expl anation Advance Directive(s) 09/14/2014 3:36 PM Advance Directive(s) 12/29/2013 4:33 PM Documents on File Type Date Recorded Patient Label Pinker Expl anation Advance Directive(s) 09/14/2014 3:36 PM Advance Directive(s) 12/29/2013 4:33 PM Advance Directive Response Recorded Date/ Time Advance Directives Yes July 13, 2 023 11:26am Advance Directive Response Recorded Date/ Time Living Will No May 03 10:45pm Do you have a Healthcare Power of Fish And Wildlife Biologist? No May 03, 2023 10:45pm Advance Directives Yes July 13, 023 11:26am Chief Complaint and Reason for Visit Chief Complaint NEEDS REFILL ON MEDS CHEST PAIN ABNORMAL STRESS TEST,CHEST PAIN Reason for Visit Chest pain Essential hypertension HLD (hyperlipidemia) Presence of stent in coronary artery Abnormal stress test Angina pectoris CAD (coronary artery disease) Diabetes mellitus Renal insufficiency S/P PTCA (percutaneous transluminal coronary angioplasty) Essential hypertension HLD (hyperlipidemia) Chief Complaint NEEDS REFILL ON MEDS CHEST PAIN ABNORMAL STRESS TEST,CHEST PAIN PCI pad PVD, DECREASED PEDAL PULSES Reason for Visit Chest pain Essential hypertension HLD (hyperlipidemia) Presence of stent in coronary artery Angina pectoris CAD (coronary artery disease) Diabetes mellitus Renal insufficiency S/P PTCA (percutaneous transluminal coronary angioplasty) Essential hypertension HLD (hyperlipidemia) Abnormal stress test Chest pain Diabetes mellitus Essential hypertension HLD (hyperlipidemia) PAD (peripheral artery disease) Presence of stent in coronary artery PAD (peripheral artery disease) Chief Complaint NEEDS REFILL ON MEDS CHEST PAIN ABNORMAL STRESS TEST,CHEST PAIN PCI pad PVD, DECREASED PEDAL PULSES LABSPEC Reason for Visit Chest pain Essential hypertension HLD (hyperlipidemia) Presence of stent in coronary artery Angina pectoris CAD (coronary artery disease) Diabetes mellitus Renal insufficiency S/P PTCA (percutaneous transluminal coronary angioplasty) Essential hypertension HLD (hyperlipidemia) Abnormal stress test Chest pain Diabetes mellitus Essential hypertension HLD (hyperlipidemia) PAD (peripheral artery disease) Presence of stent in coronary artery PAD (peripheral artery disease) Chief Complaint PVD, DECREASED PEDAL PULSES LABSPEC 3 M FU overdue for OV CHEST PAIN CHEST PAIN Reason for Visit Atherosclerotic hear t disease of [place] coronary artery without angina pectoris Diabetes mellitus Essential hypertension HLD (hyperlipidemia) PAD (peripheral artery disease) S/P PTCA (percutaneous transluminal coronary angioplasty) Atherosclerotic heart disease of [place] coronary artery without angina pectoris Essential hypertension HLD (hyperlipidemia) PAD (peripheral artery disease) Chief Complaint PVD, DECREASED PEDAL PULSES LABSPEC 3 M FU overdue for OV CHEST PAIN CHEST PAIN ABN STRESS Reason for Visit Atherosclerotic hear t disease of [place] coronary artery without angina pectoris Diabetes mellitus Essential hypertension HLD (hyperlipidemia) PAD (peripheral artery disease) S/P PTCA (percutaneous transluminal coronary angioplasty) Atherosclerotic heart disease of [place] coronary artery without angina pectoris Essential hypertension HLD (hyperlipidemia) PAD (peripheral artery disease) Chief Complaint overdue for OV CHEST PAIN CHEST PAIN ABN STRESS 3 M FU Reason for Visit S/P PTCA (percutaneo us transluminal coronary angioplasty) Atherosclerotic heart disease of [place] coronary artery without angina pectoris Essential hypertension HLD (hyperlipidemia) PAD (peripheral artery disease) Atherosclerotic heart disease of [place] coronary artery without angina pectoris Essential hypertension HLD (hyperlipidemia) PAD (peripheral artery disease) Chief Complaint 3 M FU Reason for Visit Atherosclerotic hear t disease of [place] coronary artery without angina pectoris Essential hypertension HLD (hyperlipidemia) PAD (peripheral artery disease) Chief Complaint COLD SYMPTOMS/COUGH Chief Complaint COLD SYMPTOMS/COUGH 6 M FU ABD Reason for Visit Atherosclerotic hear t disease of [place] coronary artery without angina pectoris Essential hypertension HLD (hyperlipidemia) PAD (peripheral artery disease) Chief Complaint COLD SYMPTOMS/COUGH 6 M FU ABD CAN'T VOID Reason for Visit Atherosclerotic hear t disease of [place] coronary artery without angina pectoris Essential hypertension HLD (hyperlipidemia) PAD (peripheral artery disease) Chief Complaint 6 M FU ABD CAN'T VOID Reason for Visit Atherosclerotic hear t disease of [place] coronary artery without angina pectoris Essential hypertension HLD (hyperlipidemia) PAD (peripheral artery disease) Chief Complaint 6 M FU ABD CAN'T VOID CONCERN FOR UTI Reason for Visit Atherosclerotic hear t disease of [place] coronary artery without angina pectoris Essential hypertension HLD (hyperlipidemia) PAD (peripheral artery disease) Chief Complaint ABD CAN'T VOID CONCERN FOR UTI Chief Complaint Admit Date Abdominal complaints June 17, 2024 12: 54pm INT LAB ORDERS June 19, 2024 2:39 pm COUGH, STOMACH PAIN, DIZZY June 24, 12:20pm INT LABSPEC July 01, 2024 9:3 5am Reason for Visit Admit Date Abnormal stools June 17, 2024 12:5 4pm Abdominal pain June 17, 2024 12:5 4pm Abdominal symptoms June 17, 2024 12:5 4pm Abdominal discomfort June 24, 2024 12 :20pm Acute bronchitis, unspecified June 12:20pm Chief Complaint Admit Date Abdominal complaints June 17, 2024 12: 54pm INT LAB ORDERS June 19, 2024 2:39 pm COUGH, STOMACH PAIN, DIZZY June 24, 2 025 12:20pm INT LABSPEC July 01, 2024 9:3 5am NEED ORDER FOR LAB & URINE July 18 1:52pm 3 M FU July 22, 2024 10:4 6am Reason for Visit Admit Date Abnormal stools June 17, 2024 12:5 4pm Abdominal pain June 17, 2024 12:5 4pm Abdominal symptoms June 17, 2024 12:5 4pm Abdominal discomfort June 24, 2024 12 :20pm Acute bronchitis, unspecified June 12:20pm Abdominal discomfort July 22, 2024 10: 46am Chief Complaint Admit Date Abdominal complaints June 17, 2024 12: 54pm INT LAB ORDERS June 19, 2024 2:39 pm COUGH, STOMACH PAIN, DIZZY June 24, 2 025 12:20pm INT LABSPEC July 01, 2024 9:3 5am NEED ORDER FOR LAB & URINE July 18 1:52pm 3 M FU July 22, 2024 10:4 6am UTI August 26, 2024 11:11 am Chief Complaint Admit Date Abdominal complaints June 17, 2024 12: 54pm INT LAB ORDERS June 19, 2024 2:39 pm COUGH, STOMACH PAIN, DIZZY June 24, 2 025 12:20pm INT LABSPEC July 01, 2024 9:3 5am NEED ORDER FOR LAB & URINE July 18 1:52pm 3 M FU July 22, 2024 10:4 6am UTI August 26, 2024 11:11 am 1 Y FU/MOVED FROM [facility] September 30, 2024 1: 52pm Reason for Visit Admit Date Abnormal stools June 17, 2024 12:5 4pm Abdominal pain June 17, 2024 12:5 4pm Abdominal symptoms June 17, 2024 12:5 4pm Abdominal discomfort June 24, 2024 12 :20pm Acute bronchitis, unspecified June 12:20pm Abdominal discomfort July 22, 2024 10: 46am Atherosclerotic heart diseas e of [place] coronary artery without angina pectoris September 30, 2024 1:52pm Essential hypertension September 30, 2024 1 :52pm HLD (hyperlipidemia) September 30, 2024 1:5 2pm PAD (peripheral artery disease) September 1:52pm Chief Complaint Admit Date 1 Y FU/MOVED FROM [facility] September 30, 2024 1: 52pm Reason for Visit Admit Date Atherosclerotic heart diseas e of [place] coronary artery without angina pectoris September 30, 2024 1:52pm Essential hypertension September 30, 2024 1 :52pm HLD (hyperlipidemia) September 30, 2024 1:5 2pm PAD (peripheral artery disease) September 1:52pm Summary Purpose Additional Source Comments Goals (unrecognized section and content) Goals may be documented in a n alternate sectionGoals may be documented in an alternate sectionGoals may be documented in an alternate sectionGoals may be documented in an alternate sectionGoals may be documented in an alternate sectionGoals may be documented in an alternate section No data available for this sectionGoals may be documented in an alternate section No data available for this sectionGoals may be documented in an alternate sectionGoals may be documented in an alternate sectionGoals may be documented in an alternate sectionGoals may be documented in an alternate sectionGoals may be documented in an alternate sectionGoals may be documented in an alternate sectionGoals may be documented in an alternate sectionGoals may be documented in an alternate sectionGoals may be documented in an alternate sectionGoals may be documented in an alternate section Care Teams (unrecognized sec tion and content) Team Status: Active Member Role Status Dates Dr. Katt Ramsay MD Family Provider Active Dr. Katt Ramsay MD Primary Care Provider Active Team Status: Inactive Member Role Status Dates Dr. Katt Ramsay MD Primary Care Provider, Referrin g Provider Active Sri Longoria UTILITY WORKER ROLLER [employer]OP, UTILITY WORKER ROLLER [employer]-C Attending Provider Active Team Status: Active Member Role Status Dates Dr. Katt Ramsay MD Primary Care Provider Active Sri Longoria UTILITY WORKER ROLLER [employer]OP, UTILITY WORKER ROLLER [employer]-C Referring Provider, Other Provi haroon Active Dr. Rai Solorzano MD Attending Provider Active Team Status: Active Member Role Status Dates Dr. Katt Ramsay MD Primary Care Provider Active Dr. Rai Solorzano MD Attending Provider Active Team Status: Inactive Member Role Status Dates Dr. Katt Ramsay MD Primary Care Provider, Referrin g Provider Active Zac Phelan UTILITY WORKER ROLLER SHOP, UTILITY WORKER ROLLER [employer]-C Attending Provider Active Team Status: Inactive Member Role Status Dates Dr. Katt Ramsay MD Primary Care Provider, Referrin g Provider Active Dr. Liam Grove MD Attending Provider Active Team Status: Active Member Role Status Dates Dr. Katt Ramsay MD Primary Care Provider Active Dr. Liam Grove MD Attending Provider, Referring Pro vider Active Team Status: Inactive Member Role Status Dates Dr. Katt Ramsay MD Primary Care Provider Active Dr. Lisa Martell DO Attending Provider Active Team Status: Inactive Member Role Status Dates Dr. Katt Ramsay MD Primary Care Provider Active Sri Longoria UTILITY WORKER [employer]ER [employer]OP, UTILITY WORKER [employer]ER [employer]-C Other Provider Active Dr. Rai Solorzano MD Admit Provider, Attending Prov ider Active Team Status: Inactive Member Role Status Dates Dr. Katt Ramsay MD Primary Care Provider Active Dr. Liam Grove MD Attending Provider, Referring Pro vider Active Team Status: Active Member Role Status Dates Dr. Katt Ramsay MD Primary Care Provider Active Dr. Lisa Martell DO Attending Provider Active Team Status: Inactive Member Role Status Dates Dr. Katt Ramsay MD Primary Care Provider, Referrin g Provider Active Dr. Rai Solorzano MD Attending Provider Active Team Status: Active Member Role Status Dates Dr. Katt Ramsay MD Primary Care Provider Active Dr. Rai Solorzano MD Referring Provider, Other Prov ider Active Dr. Jose Lindo MD Attending Provider Active Team Status: Inactive Member Role Status Dates Dr. Katt Ramsay MD Primary Care Provider Active Dr. Rai Solorzano MD Attending Provider, Referring Provider Active Team Status: Inactive Member Role Status Dates Dr. Katt Ramsay MD Primary Care Provider Active Dr. Jose Lindo MD Attending Provider, Referring Pro vider Active Team Status: Inactive Member Role Status Dates Dr. Katt Ramsay MD Primary Care Provider Active Dr. Lisa Martell DO Attending Provider, Referring P rovider Active Team Status: Inactive Member Role Status Dates Dr. Katt Ramsay MD Primary Care Provider, Attendin g Provider Active Team Status: Inactive Member Role Status Dates Dr. Katt Ramsay MD Primary Care Provider, Referrin g Provider Active Darek Talavera PA, PA Attending Provider Active Team Status: Inactive Member Role Status Dates Dr. Katt Ramsay MD Primary Care Provider Active Ed Physician Provider Emergency Provider Active Team Status: Inactive Member Role Status Dates Dr. Katt Ramsay MD Primary Care Provider Active Ed Physician Provider Attending Provider, Emergency Pr ovider Active Team Status: Inactive Member Role Status Dates Dr. Katt Ramsay MD Primary Care Provider Active Dr. Stephen Baeza DO Emergency Provider Active Team Status: Inactive Member Role Status Dates Dr. Katt Ramsay MD Primary Care Provider Active Dr. Stephen Baeza DO Attending Provider, Emergency P noemi Active Team Status: Inactive Member Role Status Dates Dr. Katt Ramsay MD Primary Care Provider Active Dr. David Medina MD Attending Provider, Referri ng Provider Active Team Status: Inactive Member Role Status Dates Dr. Katt Ramsay MD Primary Care Provider Active Darek BOUCHER PA Attending Provider Active Development And Housing Director Relationship Specialty Start Date End Date Katt Ramsay PCP - General Family Medicine 11/28/16 Development And Housing Director Relationship Specialty Start Date End Date Katt Ramsay PCP - General Family Medicine 11/28/16 Development And Housing Director Relationship Specialty Start Date End Date Katt Ramsay PCP - General Family Medicine 11/28/16 Team Status: Inactive Member Role Status Dates Dr. Katt Ramsay MD Primary Care Provider Active Start: June 17, 2024 End: June 17, 2024 Dr. Katt Ramsay MD Referring Provider Active Start: June 17, 2024 End: June 17, 2024 CITLALY Prado Attending Provider Active Start: June 17, 2024 End: June 17, 2024 Team Status: Inactive Member Role Status Dates Dr. Katt Ramsay MD Primary Care Provider Active Start: June 19, 2024 End: June 19, 2024 CITLALY Prado Attending Provider Active Start: June 19, 2024 End: June 19, 2024 CITLALY Prado Referring Provider Active Start: June 19, 2024 End: June 19, 2024 Team Status: Inactive Member Role Status Dates Dr. Katt Ramsay MD Primary Care Provider Active Start: June 24, 2024 End: June 24, 2024 Dr. Katt Ramsay MD Referring Provider Active Start: June 24, 2024 End: June 24, 2024 Darek BOUCHER, PA Attending Provider Active Start: June 24, 2024 End: June 24, 2024 Team Status: Active Member Role Status Dates Dr. Katt Ramsay MD Primary Care Provider Active Start: July 01, 2024 CITLALY Prado Attending Provider Active Start: July 01, 2024 CITLALY Prado Referring Provider Active Start: July 01, 2024 Team Status: Inactive Member Role Status Dates Dr. Katt Ramsay MD Primary Care Provider Active Start: July 01, 2024 End: July 01, 2024 CITLALY Prado Attending Provider Active Start: July 01, 2024 End: July 01, 2024 CITLALY Prado Referring Provider Active Start: July 01, 2024 End: July 01, 2024 Team Status: Inactive Member Role Status Dates Dr. Katt Ramsay MD Primary Care Provider Active Start: July 18, 2024 End: July 18, 2024 Dr. David Medina MD Attending Provider Active Start: July 18, 2024 End: July 18, 2024 Dr. David Medina MD Referring Provider Active Start: July 18, 2024 End: July 18, 2024 Team Status: Inactive Member Role Status Dates Dr. Katt Ramsay MD Primary Care Provider Active Start: July 22, 2024 End: July 22, 2024 Dr. Katt Ramsay MD Referring Provider Active Start: July 22, 2024 End: July 22, 2024 CITLALY Prado Attending Provider Active Start: July 22, 2024 End: July 22, 2024 Team Status: Active Member Role Status Dates Dr. Katt Ramsay MD Primary Care Provider Active Team Status: Inactive Member Role Status Dates Dr. Katt Ramsay MD Primary Care Provider Active Start: August 26, 2024 End: August 26, 2024 Dr. Christel Moncada MD Attending Provider Active Start: August 26, 2024 End: August 26, 2024 Dr. Christel Moncada MD Referring Provider Active Start: August 26, 2024 End: August 26, 2024 Team Status: Inactive Member Role Status Dates Dr. Katt Ramsay MD Primary Care Provider Active Start: September 30, 2024 End: September 30, 2024 Dr. Katt Ramsay MD Referring Provider Active Start: September 30, 2024 End: September 30, 2024 Zac Phelan [employer], [employer] Attending Provider Active S tart: September 30, 2024 End: September 30, 2024 Team Status: Active Member Role/Relationship Status Dates Dr. Katt Ramsay MD Primary care physician Active Team Status: Inactive Member Role/Relationship Status Dates Dr. Katt Ramsay MD Primary care physician Active Start: September 30, 2024 End: September 30, 2024 Dr. Katt Ramsay MD Referring Provider Active Start: September 30, 2024 End: September 30, 2024 Zac Phelan [employer], [employer] Attending physician Active Start: September 30, 2024 End: September 30, 2024 Team Status: Inactive Member Role/Relationship Status Dates Dr. Katt Ramsay MD Primary care physician Active Start: October 14, 2024 Dr. Christel Moncada MD Attending physician Active Start: October 14, 2024 Team Status: Inactive Member Role/Relationship Status Dates Dr. Katt Ramsay MD Primary care physician Active Start: December 26, 2024 End: December 26, 2024 Angel Hicks MD Attending physician Active Star t: December 26, 2024 End: December 26, 2024 Angel Hicks MD Referring Provider Active Start : December 26, 2024 End: December 26, 2024 INFORMATION SOURCE (unrecogn ized section and content) DATE CREATED AUTHOR 05/03/2023 [facility] ([place]) DATE CREATED AUTHOR AUTHOR'S ORGANIZ ATION 05/15/2023 [facility] DATE CREATED AUTHOR AUTHOR'S ORGANIZ ATION 08/29/2023 [facility] DATE CREATED AUTHOR AUTHOR'S ORGANIZ ATION 02/21/2025 [facility] Source Comments (unrecognize d section and content) In the event this informatio n is protected by the Federal Confidentiality of Alcohol and Drug Abuse Patient Records regulations: The Federal rules restrict any use of the information to criminally investigate or prosecute any alcohol or drug abuse patient.[facility] the event this information is protected by the Federal Confidentiality of Alcohol and Drug Abuse Patient Records regulations: The Federal rules restrict any use of the information to criminally investigate or prosecute any alcohol or drug abuse patient.[facility] the event this information is protected by the Federal Confidentiality of Alcohol and Drug Abuse Patient Records regulations: The Federal rules restrict any use of the information to criminally investigate or prosecute any alcohol or drug abuse patient.[facility] the event this information is protected by the Federal Confidentiality of Alcohol and Drug Abuse Patient Records regulations: The Federal rules restrict any use of the information to criminally investigate or prosecute any alcohol or drug abuse patient.[facility] Reason for Visit (unrecogniz ed section and content) Reason Comments Appointment 08/28/2023 colon.egd asc Reason Comments Results FOR RECORDS PERTAINING TO PATIENTS WHO ARE [...] BE BASED ON THE PRIMARY CLINICAL RECORDS. [facility] [employer] [facility]. provides no warranty or guarantee of the accuracy or completeness of information in this document.
[2025-03-02] MEDS: HYDROmorphone 0.5 MG/0.5 ML SYRINGE IV (14:42)
[2025-03-02] MEDS: Famotidine 200 MG/20 ML MDV 20 MG in 0.9% Normal Saline (Pres. free 8 ML 300 MG IV (14:42)
[2025-03-02 15:08] LABS: Troponin T High Sens 2 HR 25 ng/L (<=14)
[2025-03-02 15:09] LABS: Troponin T High Sensitivity 28 ng/L (<=14)
[2025-03-02 16:21] VITALS: BP 191/81
[2025-03-02 16:36] VITALS: BP 187/93
[2025-03-02 17:00] VITALS: BP 187/93; PULSE 84; RESP 20; TEMP 36.6; O2SAT 96
== END 2025-03-02 17:01 | disposition home or self-care (01) ==
PROVIDERS: Emergency Provider Surgery; Visit Provider Surgery
DX: R10.31 Right lower quadrant pain (principal); J44.9 Chronic obstructive pulmonary disease, unspecified; E11.43 Type 2 diabetes mellitus with diabetic autonomic (poly)neuropathy; E11.51 Type 2 diabetes mellitus with diabetic peripheral angiopathy without gangrene; E11.65 Type 2 diabetes mellitus with hyperglycemia; E86.0 Dehydration; R11.2 Nausea with vomiting, unspecified; N28.9 Disorder of kidney and ureter, unspecified; R82.90 Unspecified abnormal findings in urine; I10 Essential (primary) hypertension; I25.10 Atherosclerotic heart disease of native coronary artery without angina pectoris; K21.9 Gastro-esophageal reflux disease without esophagitis; K31.84 Gastroparesis; I25.2 Old myocardial infarction; Z95.1 Presence of aortocoronary bypass graft; Z87.19 Personal history of other diseases of the digestive system; Z79.84 Long term (current) use of oral hypoglycemic drugs; Z87.891 Personal history of nicotine dependence
CPT/HCPCS: 71046; 74177; 80053; 81001; 83690; 84484; 85025; 87040; 87086; 87088; 93005; 96365; 96375; 96376; 99285; Q9967; A4216; J2405